=== PATIENT | female | born 1945 | race Hispanic/Latino ===

== ENCOUNTER 2024-09-06 09:25 | Inpatient (IN) | payer OTHER ==
--- OUTSIDE RECORDS SUMMARY | 2024-09-06 09:35 | XMS REPORT | Continuity of Care Document ---
Author Name Unknown Address [address] [facility] [address] [place] [address] [facility] Address [address] [facility] [place] [address] Care Team Providers Care Private Detective Name Role Phone Pcp, Pcp Primary Care Physician Unavailab Yoselin Oleary Attending Clinician Unavailable BUCK KUMAR Attending Clinician Unavailable Xiomara Sanches MD Attending Clinician [phone] XIOMARA SANCHES Attending Clinician Unavail able RENEE KEVIN Attending Clinician UnavailSalomon Dan DO Attending Clinician [phone] SALOMON RUBIO Attending Clinician Unavailab Vickie Beebe MD Attending Clinician [phone] Lindy Yang MD Attending Clinician [phone] Richie Keith MD Attending Clinician [phone] RICHIE KEITH Attending Clinician Unavailab Herrera Gardner Attending Clinician [phone] ENA DEL CID Attending Clinician UnavailHERRERA Duarte Attending Clinician Unavailable Ena Gant Attending Clinician [phone] EBENEZER HORTON Attending Clinician Unavailable Ebenezer Horton MD Attending Clinician [phone] UNRULY FERNANDO Attending Clinician Unavailable Unruly Fernando MD Attending Clinician [phone] Doctor Unassigned, [place] Attending Clinician U Omar Camacho MD Attending Clinician [phone] Lab, Ang - Db Attending Clinician Unavailable OMAR PATINO Attending Clinician Unavaila ble Nurse, Primo Whalen Attending Clinician Unavailable DENNYS ALBARADO Attending Clinician Unavailable Buck Kumar MD Attending Clinician [phone] Attending Clinician [phone] PK PETERS Attending Clinician [place] [id number], [facility] Attending Clinician Unavailable Jayson Galindo DO Attending Clinician [phone] Lab, [facility] Pob I Attending Clinician Unavailab BUCK Bejarano Admitting Clinician Unavailable Salomon Rubio DO Admitting Clinician [phone] SALOMON RUBIO Admitting Clinician Unavailab Lindy Squires MD Admitting Clinician [phone] LINDY YANG Admitting Clinician Unavailable EBENEZER HORTON Admitting Clinician Unavailable UNRULY FERNANDO Admitting Clinician Unavailable Buck Kumar MD Admitting Clinician [phone] Payers Payer Name Policy Type Policy Number Effective Date Expirati on Date Source [facility] [id number] 2019 00:00:00 [employer] MED[employer]ARE ADVANTAGE Medicare [id number] 2022 00:00:00 [employer] MEDICARE PPO [id number] 00:00:00 Problems Condition Name Condition Details Condition Category Status Onset Date Resolution Date Last Treatment Date Treating Clinician Comments Source Arthritis Arthritis Disease Active 09-02 00:00: 00 Vicky Kim Epic Cervical spondylosi s Cervical spondylosi s Disease Active 09-02 00:00: 00 Vicky Kim Epic CTS (carpal tunnel syndrome) CTS (carpal tunnel syndrome) Disease Active 09-02 00:00: 00 Vicky Kim Epic Paresthesi a of hand Paresthesi a of hand Disease Active 09-02 00:00: 00 Vicky Landaverde CVA (cerebrova scular 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 ) CVA (cerebrova scular 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 ) Disease Active 07-23 00:00: 00 Vicky Landaverde Simple obesity Simple obesity Disease Recurre nce 07-23 00:00: 00 Vicky Landaverde Hyperlipid emia Hyperlipid emia Disease Active 07-16 00:00: 00 Vicky Landaverde Dysarthria Dysarthria Disease Active 07-16 00:00: 00 Vicky Landaverde Dysphagia Dysphagia Disease Active 07-16 00:00: 00 Vicky Landaverde Hemiplegia (CMS/HCC) Hemiplegia (CMS/HCC) Disease Active 07-16 00:00: 00 Vicky Landaverde 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 Disease Active 07-15 00:00: 00 Vicky Landaverde Primary hypertensi on Primary hypertensi on Disease Active 07-15 00:00: 00 Vicky Landaverde Stroke, acute, thrombotic Stroke, acute, thrombotic Disease Active 07-15 00:00: 00 Vicky Landaverde Chronic midline low back pain without sciatica Chronic midline low back pain without sciatica Disease Active 2019-07 00:00: 00 Vicky Landaverde Diverticul osis Diverticul osis Disease Active 2019-07 00:00: 00 Vicky Landaverde Calculus of kidney Calculus of kidney Disease Active 2019-07 00:00: 00 Overview: Formattin g of this note might be different from the original. 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 Active 03-29 00:00: 00 Vicky Landaverde Obesity (BMI 30-39.9) Obesity (BMI 30-39.9) Disease Active [facility] Abnormal TSH Abnormal TSH Disease Resolve d 03-29 00:00: 00 2024-09-02 00:00:00 2024-09-02 11:49:55 Vicky Landaverde Bacterial UTI Bacterial UTI Disease Resolve d 03-29 00:00: 00 2024-09-02 00:00:00 2024-09-02 11:49:55 Vicky Landaverde Calculus of kidney Calculus of kidney Disease Resolve d 03-29 00:00: 00 2024-09-02 00:00:00 2024-09-02 11:49:55 Vicky Landaverde Allergies, Adverse Reactions, Alerts Allergy Name Allergy Type Status Severity Reaction(s) Onset Date Inactive Date Treating Clinician Comments Source PPD BLACK RUBBER MIX DRUG INGREDI Active Hives 2018-07 00:00: 00 [facility] Ppd Black Rubber Mix Propensi ty to adverse reaction s Active Hives 2018-07 00:00: 00 [facility] Social History Social Habit Start Date Stop Date Quantity Comments Source Gender identity 2024-07-17 08:57:05 Identifies as female gender (finding) Isaias Kim [facility] History SDOH Alcohol Std Drinks [facility] History SDOH Alcohol Binge [facility] History SDOH Alcohol Comment [place] [facility] ASSERTION Not Vicky Landaverde Sexual orientation [facility] Jul[facility] Tobacco use and exposure 2024-09-02 00:00:00 2024-09-02 00:00:00 Smokeless tobacco non-user Isaias Julio [facility] Alcoholic beverage intake 2024-09-02 00:00:00 2024-09-02 00:00:00 Lifetime non-drinker (finding) Isaias Kim [facility] History of Social function 2024-07-27 00:00:00 2024-07-27 00:00:00 Isaias Kim [facility] Alcohol intake 2022-05-21 00:00:00 2022-05-21 00:00:00 Lifetime non-drinker (finding) [facility] Exposure to SARS-CoV-2 (event) 2022-05-10 00:00:00 2022-05-20 10:38:00 Not sure [facility] History SDOH Alcohol Frequency 2019-06-21 00:00:00 2019-06-21 00:00:00 1 [facility] Sex Assigned At 1945 00:00:00 1945 00:00:00 [facility] Smoking Status Start Date Stop Date Source Never smoked tobacco Vicky Kim [facility] Medications Ordered Medication Name Filled Medication Name Start Date Stop Date Current Medication? Ordering Clinician Indication Dosage Frequency Signature (SIG) Comments Components Source atorvastati n (Lipitor) 80 MG tablet atorvastati n (Lipitor) 80 MG tablet 08-13 00:00: 00 11-06 23:59 :00 No 80mg Take 1 tablet by mouth at bedtime. Vicky Landaverde aspirin 81 MG chewable tablet aspirin 81 MG chewable tablet 08-13 00:00: 00 08-13 23:59 :00 No 81mg QD 1 tablet by Per G Tube route 1 time each day. Vicky Landaverde gabapentin (Neurontin) 250 MG/5ML solution gabapentin (Neurontin) 250 MG/5ML solution 08-13 00:00: 00 08-13 23:59 :00 No 300mg Q.[id number] 3D Take 6 mL by mouth in the morning and 6 mL at noon and 6 mL in the evening. Vicky Landaverde gabapentin (Neurontin) solution 300 mg gabapentin (Neurontin) solution 300 mg 08-05 15:00: 00 Yes 300mg Q.[id number] 3D 300 mg, Per G Tube, 3 times daily, First dose (after last modificati on) on Fri08/05/24 at 1500 Vicky Kim [facility] gabapentin (Neurontin) solution 300 mg gabapentin (Neurontin) solution 300 mg 08-02 17:00: 00 08-05 11:05 :56 No 300mg Q.5D 300 mg, Per G Tube, 2 times daily, First dose (after last modificati on) on Fri08/02/24 at 1700 Vicky Kim [facility] gabapentin (Neurontin) solution 300 mg gabapentin (Neurontin) solution 300 mg 07-30 21:00: 00 08-02 11:27 :33 No 300mg 300 mg, Per G Tube, Nightly, First dose on Fri07/30/24 at 2100 Vicky Kim [facility] Enteral Free water Flush 240 mL Enteral Free water Flush 240 mL 07-28 17:00: 00 Yes 240mL Q6H 240 mL, Per PEG Tube, Every 6 hours, First dose (after last modificati on) on Fri07/28/24 at 1700 [facility] aspirin chewable tablet 81 mg aspirin chewable tablet 81 mg 07-24 09:00: 00 Yes [id number] 81mg QD 81 mg, Per G Tube, Daily, First dose on Fri07/24/24 at 0900, Indication s: Carotid Atheroscle [facility]sis [facility] aspirin 81 MG chewable tablet aspirin 81 MG chewable tablet 07-24 00:00: 00 08-12 00:00 :00 No 81mg QD 1 tablet by Per G Tube route 1 time each day. Vicky Kim [facility] heparin injection 5,000 Units heparin injection 5,000 Units 07-23 22:00: 00 Yes 5000U Q8H 5,000 Units, Subcutaneo us, Every 8 hours, First dose on Fri07/23/24 at 2200 [facility] senna (Senokot) oral solution 10 mL senna (Senokot) oral solution 10 mL 07-23 21:00: 00 Yes 10mL 10 mL, Per G Tube, Nightly, First dose on Fri07/23/24 at 2100 [facility] atorvastati n (Lipitor) tablet 80 mg atorvastati n (Lipitor) tablet 80 mg 07-23 21:00: 00 Yes 80mg 80 mg, Nasogastri c, Nightly, First dose (after last modificati on) on Fri07/23/24 at 2100 Vicky Kim [facility] melatonin tablet 3 mg melatonin tablet 3 mg 07-23 20:00: 00 Yes 3mg QD 3 mg, Per G Tube, Nightly PRN, sleep, Starting on Fri07/23/24 at 2000 Vicky Landaverde Docusate Sodium oral liquid 100 mg Docusate Sodium oral liquid 100 mg 07-23 17:00: 00 Yes 100mg Q.5D 100 mg, Per G Tube, 2 times daily, First dose on Fri07/23/24 at 1700 Vicky Landaverde acetaminoph en (Tylenol) tablet 650 mg acetaminoph en (Tylenol) tablet 650 mg 07-23 13:42: 13 Yes 650mg Q4H 650 mg, Per G Tube, Every 4 hours PRN, mild pain (1-3), fever, Temp > 100.4 F, Starting on Fri07/23/24 at 1342, Do not exceed 4000 mg/day Vicky Landaverde Fibersource HN liquid 375 mL Fibersource HN liquid 375 mL 07-23 13:15: 00 08-06 19:52 :09 No 375mL Q.25D 375 mL, Per PEG Tube, 4 times daily, First dose (after last modificati on) on Fri07/23/24 at 1315, 50% rule First bolus 125 ml and advance by 125 ml until goal is reached. - Keep head of bed elevated > 30 degrees while being fed. Vicky Landaverde Enteral Free water Flush 60 mL Enteral Free water Flush 60 mL 07-23 13:15: 00 07-28 07:42 :09 No 60mL Q4H 60 mL, Per PEG Tube, Every 4 hours, First dose (after last modificati on) on Fri07/23/24 at 1315 Vicky Landaverde glucagon injection 1 mg glucagon injection 1 mg 07-23 12:53: 48 Yes 1mg Vicky Landaverde dextrose 50 % solution 12.5 g dextrose 50 % solution 12.5 g 07-23 12:53: 48 Yes 12.5g Vicky Landaverde bisacodyl (Dulcolax) suppository 10 mg bisacodyl (Dulcolax) suppository 10 mg 07-23 12:53: 48 Yes 10mg QD Vicky Landaverde sodium chloride (NS) 0.9 % flush 10 mL sodium chloride (NS) 0.9 % flush 10 mL 07-23 12:53: 48 Yes 10mL Vicky Landaverde Fibersource HN liquid 375 mL Fibersource HN liquid 375 mL 07-23 10:15: 00 Yes 375mL Q.25D 375 mL, Nasogastri c, 4 times daily, First dose on Fri07/23/24 at 1015, First bolus 125 ml and advance by 125 ml until goal is reached Vicky Landaverde Enteral Free water Flush 60 mL Enteral Free water Flush 60 mL 07-23 10:15: 00 Yes 60mL Q4H 60 mL, Nasogastri c, Every 4 hours, First dose on Fri07/23/24 at 1015, Give ? the volume of the flush before the tube feeding bolus and give ? the volume of the flush after the tube feeding bolus Vicky Landaverde atorvastati n (Lipitor) 80 MG tablet atorvastati n (Lipitor) 80 MG tablet 07-23 00:00: 00 08-13 00:00 :00 No 80mg 1 tablet by Per G Tube route at bedtime. Vicky Landaverde electrolyte solution pH 7.4 (Plasma-lyt e/Normosol/ Isolyte) infusion electrolyte solution pH 7.4 (Plasma-lyt e/Normosol/ Isolyte) infusion 07-22 17:00: 00 07-22 22:29 :17 No 125mL/h 125 mL/hr, Intravenou s, Continuous , Starting on Fri07/22/24 at 1700, Recovery (only) Vicky Landaverde hydrALAZINE injection 10 mg hydrALAZINE injection 10 mg 07-18 22:32: 43 07-19 16:22 :00 No 10mg Q6H 10 mg, Intravenou s, Every 6 hours PRN, high blood pressure, Starting on Fri07/18/24 at 2232, May give up to 2 consecutiv e doses. If goal BP is not achieved after 2 consecutiv e doses, Notify (Refer to SBP goal documented in Vital Sign/BP Parameters order). Recheck Vitals Q15 minutes x 4. Avoid use in patients with HR >110 bpm. Vicky chairez [place] Jose Roberto melatonin tablet 6 mg melatonin tablet 6 mg 07-17 21:00: 00 Yes 6mg 6 mg, Nasogastri c, Nightly, First dose on 07/17/24 at 2100 Vicky Landaverde senna (Senokot) oral solution 5 mL senna (Senokot) oral solution 5 mL 07-17 10:15: 00 Yes 5mL Q.5D 5 mL, Per G Tube, Every 12 hours scheduled, First dose on Fri07/17/24 at 1015 Vicky chairez [place] Jose Roberto aspirin chewable tablet 81 mg aspirin chewable tablet 81 mg 07-16 18:45: 00 Yes 81mg 81 mg, Oral, Once, On Fri07/16/24 at 1845, For 1 dose Vicky chairez [place] Jose Roberto Promote/Fib er liquid Promote/Fib er liquid 07-16 16:45: 00 07-23 10:11 :23 No Nasogastri c, at 70 mL/hr, Continuous , Starting on Fri07/16/24 at 1645, Administer enteral tube feeding as follows: Standard Progressio n: Initiate at 20 mL/hr and increase by 20 mL/hr evry 4 hours. Refer to the Rate field for Goal Rate Vicky chairez [place] Jose Roberto Enteral Free water Flush 30 mL Enteral Free water Flush 30 mL 07-16 16:45: 00 07-23 10:11 :23 No 30mL Q4H 30 mL, Nasogastri c, Every 4 hours, First dose on Fri07/16/24 at 1645 Vicky chairez [place] Jose Roberto sulfur hexafluorid e lipid-type A microsphere s (Lumason) 60.7-25 MG Injectable suspension 2 mL sulfur hexafluorid e lipid-type A microsphere s (Lumason) 60.7-25 MG Injectable suspension 2 mL 07-16 13:48: 48 07-16 13:18 :00 No 2mL 2 mL, Intravenou s, Once in imaging, Starting on Fri07/16/24 at 1348, For 1 dose, Reconstitu te with 5 mL of PF NS only using provided Mini-Gary ; shake vigorously for 20 sec until a homogenous white milky suspension forms. Use immediatel y. May repeat once during procedure. Vicky Landaverde aspirin chewable tablet 81 mg aspirin chewable tablet 81 mg 07-16 12:45: 00 Yes 81mg QD 81 mg, Oral, Daily, First dose on Fri07/16/24 at 1245 Vicky Landaverde electrolyte solution pH 7.4 (Plasma-lyt e/Normosol/ Isolyte) infusion electrolyte solution pH 7.4 (Plasma-lyt e/Normosol/ Isolyte) infusion 07-16 08:15: 00 07-17 10:15 :00 No 75mL/h 75 mL/hr, Intravenou s, Continuous , Starting on Fri07/16/24 at 0815, For 1 day Vicky Landaverde atorvastati n (Lipitor) tablet 80 mg atorvastati n (Lipitor) tablet 80 mg 07-15 21:00: 00 Yes 80mg 80 mg, Nasogastri c, Nightly, First dose on Fri07/15/24 at 2100 Vicky Landaverde polyethylen e glycol (PEG) 3350 (Miralax) packet 17 g polyethylen e glycol (PEG) 3350 (Miralax) packet 17 g 07-15 17:15: 00 Yes 17g Q.5D 17 g, Per G Tube, 2 times daily, First dose on Fri07/15/24 at 1715, Dissolve 17 g in 120 to 240 mL (4 to 8 ounces) of beverage. Vicky Landaverde Senna oral syrup 8.6 mg Senna oral syrup 8.6 mg 07-15 17:15: 00 07-17 09:59 :58 No 8.6mg Q.5D 8.6 mg, Per G Tube, 2 times daily, First dose (after last modificati on) on Fri07/15/24 at 1715 Vicky Landaverde niCARdipine (Cardene) 40 mg/200 mL NS (0.2 mg/mL) premix niCARdipine (Cardene) 40 mg/200 mL NS (0.2 mg/mL) premix 07-15 14:00: 00 07-16 08:08 :27 No 5mg/h 5-15 mg/hr (25-75 mL/hr), Intravenou s, Continuous , Starting on Fri07/15/24 at 1400, Phase II/On Unit, Monitor BP Q15 mins while patient receiving IV Continuous BP Management Medication s., Infusion Type: Titrate, Initial Dose (mg/hr): 5, Titrate by (mg/hr): 2.5, Every (minutes): 15, Target Blood Pressure (mmHg): SBP less than 140 mmHg, Max Dose (mg/hr): 15 Vicky Landaverde sodium chloride (NS) 0.9 % flush 10 mL sodium chloride (NS) 0.9 % flush 10 mL 07-15 14:00: 00 07-15 17:00 :52 No 10mL Q.5D 10 mL, Intravenou s, Every 12 hours scheduled, First dose on Fri07/15/24 at 1400, Phase II/On Unit, Administer at least once every 12 hours Vicky Landaverde iohexol (OMNIPaque) 300 MG/ML injection iohexol (OMNIPaque) 300 MG/ML injection 07-15 12:58: 31 07-15 13:44 :24 No As needed, Starting on Fri07/15/24 at 1258, Intraproce dure Vicky Landaverde polyethylen e glycol (PEG) 3350 (Miralax) packet 17 g polyethylen e glycol (PEG) 3350 (Miralax) packet 17 g 07-15 12:44: 18 Yes 17g Q24H 17 g, Oral, Daily PRN, constipati on, Starting on Fri07/15/24 at 1244, Dissolve 17 g in 120 to 240 mL (4 to 8 ounces) of beverage. Vicky Landaverde verapamil (Isoptin) injection verapamil (Isoptin) injection 07-15 12:39: 38 07-15 13:44 :24 No As needed, Starting on Fri07/15/24 at 1239, Intraproce dure Vicky Landaverde nitroglycer in (Tridil) 100 mcg/mL injection nitroglycer in (Tridil) 100 mcg/mL injection 07-15 12:20: 00 07-15 13:44 :24 No As needed, Starting on Fri07/15/24 at 1220, Intraproce dure Vicky Landaverde heparin injection 5,000 Units heparin injection 5,000 Units 07-15 10:45: 00 Yes 5000U Q8H 5,000 Units, Subcutaneo us, Every 8 hours, First dose on Fri07/15/24 at 1045 Vicky Kim Epic sodium chloride (NS) 0.9 % flush 10 mL sodium chloride (NS) 0.9 % flush 10 mL 07-15 10:45: 00 07-15 17:00 :52 No 10mL Q.5D 10 mL, Intravenou s, Every 12 hours scheduled, First dose on Fri07/15/24 at 1045, Administer at least once every 12 hours Vicky Landaverde acetaminoph en (Tylenol) tablet 650 mg acetaminoph en (Tylenol) tablet 650 mg 07-15 10:41: 28 Yes 650mg Q4H 650 mg, Nasogastri c, Every 4 hours PRN, mild pain (1-3), fever, Temp > 100.4 F, Starting on Fri07/15/24 at 1041, Do not exceed 4000 mg/day Vicky Kim Epic iohexol (OMNIPaque) 350 MG/ML injection 100 mL iohexol (OMNIPaque) 350 MG/ML injection 100 mL 07-15 10:05: 32 07-15 10:05 :00 No 100mL 100 mL, Intravenou s, Once in imaging, Starting on Fri07/15/24 at 1005, For 1 dose Vicky Kim Epic iohexol (OMNIPaque) 350 MG/ML injection 100 mL iohexol (OMNIPaque) 350 MG/ML injection 100 mL 07-15 09:37: 47 07-15 09:37 :00 No 100mL 100 mL, Intravenou s, Once in imaging, Starting on Fri07/15/24 at 0937, For 1 dose Vicky Landaverde sodium chloride (NS) 0.9 % flush 10 mL sodium chloride (NS) 0.9 % flush 10 mL 07-15 09:25: 37 Yes 10mL 10 mL, Intravenou s, As needed, line care, Starting on Fri07/15/24 at 0925 Vicky Landaverde sodium chloride (NS) 0.9 % flush 10 mL sodium chloride (NS) 0.9 % flush 10 mL 07-15 09:25: 37 Yes 10mL [Order 1 Start] Name: Insert peripheral IV Signed Summary: Once, On Fri07/15/24 at 0926, For 1 occurrence [Order 1 End] [Order 2 Start] Name: Saline lock IV Signed Summary: Once, On Fri07/15/24 at 09, For 1 occurrence [Order 2 End] [Order 3 Start] Name: sodium chloride (NS) 0.9 % flush 10 mL Signed Summary: 10 mL, Intravenou s, As needed, line care, Starting on Fri07/15/24 at 0925 [Order 3 End] Vicky Landaverde FLUTICASONE PROPIONATE 50 mcg/actuati on nasal spray 2022-07 0 00:00: 00 Yes [id number] Use 2 spray(s) in each nostril once daily [facility] ampicillin- sulbactam (UNASYN) 1.5 g in NaCl 0.9% (NS) 50 mL MINI-BAG 2021-07 01:00: 00 05-19 01:09 :00 No 1.5g 1.5 g, IV Piggyback, ONCE, 1 dose, On 05/18/22 at 1900, Administer over 30 Minutes, 50 mL
Reas on for Anti-Infec tive: Documented Infection< br>Documen beth Infection Site: Abdominal< br>Duratio n of Therapy: Other (see Comments) [facility] iopamidol (ISOVUE 370-500 mL) injection 71 mL 2021-07 00:45: 00 05-18 23:48 :00 No [id number] 71mL 71 mL, Intravenou s, ONCE, 1 dose, On 05/18/22 at 1845, Routine [facility] amoxicillin -clavulanat e 875-125 mg per tablet 2021-07 00:00: 00 Yes [id number] 1{tbl} Take 1 tablet by mouth every 12 (twelve) hours. [facility] traMADoL 50 mg tablet 2021-07 00:00: 00 Yes [id number] 50mg Take 1 tablet by mouth every 6 (six) hours as needed for Pain (scale 4-6). Indication s: acute pain [facility] CARVEDILOL 25 mg tablet 02-21 00:00: 00 Yes [id number] TAKE 1 TABLET BY MOUTH TWICE DAILY WITH MEALS [facility] naproxen 250 mg tablet 12-10 00:00: 00 Yes [id number] 250mg Take 1 tablet by mouth 2 (two) times daily with meals. Take sparingly due to GI side effects [facility] zinc sulfate (ZINC-220 ORAL) 11-09 11:31: 37 Yes 1{tbl} Take 1 tablet by mouth daily. [facility] ascorbic acid, vitamin C, (VITAMIN C) 500 mg tablet 11-09 11:31: 37 Yes 500mg Take 500 mg by mouth daily. [facility] telmisartan 40 mg tablet 11-09 00:00: 00 Yes [id number] 40mg Take 1 tablet by mouth 2 (two) times daily. [facility] loratadine 10 mg tablet 10-02 00:00: 00 Yes [id number] 10mg Take 1 tablet by mouth once daily as needed for Allergies. [facility] fluticasone propionate 50 mcg/actuati on nasal spray 10-02 00:00: 00 04-29 00:00 :00 No [id number] Use 2 spray(s) in each nostril once daily [facility] carvediloL 25 mg tablet 10-02 00:00: 00 02-21 00:00 :00 No [id number] 25mg Take 1 tablet by mouth 2 (two) times daily with meals. [facility] Immunizations Ordered Immunization Name Filled Immunization Name Date Status Comments Source DTAP 2021-10-15 00:00:00 Completed [facility] DTAP 2021-10-15 00:00:00 Completed [facility] DTAP 2021-10-15 00:00:00 Completed [facility] DTAP 2021-10-15 00:00:00 Completed [facility] DTAP 2021-10-15 00:00:00 Completed [facility] DTAP 2021-10-15 00:00:00 Completed [facility] DTAP 2021-10-15 00:00:00 Completed [facility] DTAP 2021-10-15 00:00:00 Completed [facility] Influenza Virus Vaccine,quad Im,preserve Free + 2021-05-04 00:00:00 Completed [facility] Influenza Virus Vaccine,quad Im,preserve Free 65+ 2021-05-04 00:00:00 Completed [facility] Influenza Virus Vaccine,quad Im,preserve Free 2021-05-04 00:00:00 Completed [facility] Influenza Virus Vaccine,quad Im,preserve Free 65+ 2021-05-04 00:00:00 Completed [facility] Influenza Virus Vaccine,quad Im,preserve Free 65+ 2021-05-04 00:00:00 Completed [facility] Influenza Virus Vaccine,quad Im,preserve Free 65+ 2021-05-04 00:00:00 Completed [facility] Influenza Virus Vaccine,quad Im,preserve Free 652021-05-04 00:00:00 Completed [facility] Influenza Virus Vaccine,quad Im,preserve Free 65+ 2021-05-04 00:00:00 Completed [facility] SARS-COV-2 COVID-19 PFIZER VACCINE 2021-04-13 00:00:00 Completed [facility] SARS-COV-2 COVID-19 PFIZER VACCINE 2021-04-13 00:00:00 Completed [facility] SARS-COV-2 COVID-19 PFIZER VACCINE 2021-04-13 00:00:00 Completed [facility] SARS-COV-2 COVID-19 PFIZER VACCINE 2021-04-13 00:00:00 Completed [facility] SARS-COV-2 COVID-19 PFIZER VACCINE 2021-04-13 00:00:00 Completed [facility] SARS-COV-2 COVID-19 PFIZER VACCINE 2021-04-13 00:00:00 Completed [facility] SARS-COV-2 COVID-19 PFIZER VACCINE 2021-04-13 00:00:00 Completed [facility] SARS-COV-2 COVID-19 PFIZER VACCINE 2021-04-13 00:00:00 Completed [facility] SARS-COV-2 COVID-19 PFIZER VACCINE 2020-10-13 00:00:00 Completed [facility] SARS-COV-2 COVID-19 PFIZER VACCINE 2020-10-13 00:00:00 Completed [facility] SARS-COV-2 COVID-19 PFIZER VACCINE 2020-10-13 00:00:00 Completed [facility] SARS-COV-2 COVID-19 PFIZER VACCINE 2020-10-13 00:00:00 Completed [facility] SARS-COV-2 COVID-19 PFIZER VACCINE 2020-10-13 00:00:00 Completed [facility] SARS-COV-2 COVID-19 PFIZER VACCINE 2020-10-13 00:00:00 Completed [facility] SARS-COV-2 COVID-19 PFIZER VACCINE 2020-10-13 00:00:00 Completed [facility] SARS-COV-2 COVID-19 PFIZER VACCINE 2020-10-13 00:00:00 Completed [facility] SARS-COV-2 COVID-19 PFIZER VACCINE 2020-09-20 00:00:00 Completed [facility] SARS-COV-2 COVID-19 PFIZER VACCINE 2020-09-20 00:00:00 Completed [facility] SARS-COV-2 COVID-19 PFIZER VACCINE 2020-09-20 00:00:00 Completed [facility] SARS-COV-2 COVID-19 PFIZER VACCINE 2020-09-20 00:00:00 Completed [facility] SARS-COV-2 COVID-19 PFIZER VACCINE 2020-09-20 00:00:00 Completed [facility] SARS-COV-2 COVID-19 PFIZER VACCINE 2020-09-20 00:00:00 Completed [facility] SARS-COV-2 COVID-19 PFIZER VACCINE 2020-09-20 00:00:00 Completed [facility] SARS-COV-2 COVID-19 PFIZER VACCINE 2020-09-20 00:00:00 Completed [facility] Influenza High Dose Quad 2020-06-13 00:00:00 Completed [facility] Influenza High Dose Quad 2020-06-13 00:00:00 Completed [facility] Influenza High Dose Quad 2020-06-13 00:00:00 Completed [facility] Influenza High Dose Quad 2020-06-13 00:00:00 Completed [facility] Influenza High Dose Quad 2020-06-13 00:00:00 Completed [facility] Influenza High Dose Quad 2020-06-13 00:00:00 Completed [facility] Influenza High Dose Quad 2020-06-13 00:00:00 Completed [facility] Influenza High Dose Quad 2020-06-13 00:00:00 Completed [facility] Zoster Vaccine Recombinant 2019-10-08 00:00:00 Completed [facility] Zoster Vaccine Recombinant 2019-10-08 00:00:00 Completed [facility] Zoster Vaccine Recombinant 2019-10-08 00:00:00 Completed [facility] Zoster Vaccine Recombinant 2019-10-08 00:00:00 Completed [facility] Zoster Vaccine Recombinant 2019-10-08 00:00:00 Completed [facility] Zoster Vaccine Recombinant 2019-10-08 00:00:00 Completed [facility] Zoster Vaccine Recombinant 2019-10-08 00:00:00 Completed [facility] Zoster Vaccine Recombinant 2019-10-08 00:00:00 Completed [facility] Zoster Vaccine Recombinant 2019-08-09 00:00:00 Completed [facility] Zoster Vaccine Recombinant 2019-08-09 00:00:00 Completed [facility] Zoster Vaccine Recombinant 2019-08-09 00:00:00 Completed [facility] Zoster Vaccine Recombinant 2019-08-09 00:00:00 Completed [facility] Zoster Vaccine Recombinant 2019-08-09 00:00:00 Completed [facility] Zoster Vaccine Recombinant 2019-08-09 00:00:00 Completed [facility] Zoster Vaccine Recombinant 2019-08-09 00:00:00 Completed [facility] Zoster Vaccine Recombinant 2019-08-09 00:00:00 Completed [facility] Pneumococcal 13 Conjugate, PCV13 (Prevnar 13) 2019-06-21 00:00:00 Completed [facility] Pneumococcal 13 Conjugate, PCV13 (Prevnar 13) 2019-06-21 00:00:00 Completed [facility] Pneumococcal 13 Conjugate, PCV13 (Prevnar 13) 2019-06-21 00:00:00 Completed [facility] Pneumococcal 13 Conjugate, PCV13 (Prevnar 13) 2019-06-21 00:00:00 Completed [facility] Pneumococcal 13 Conjugate, PCV13 (Prevnar 13) 2019-06-21 00:00:00 Completed [facility] Pneumococcal 13 Conjugate, PCV13 (Prevnar 13) 2019-06-21 00:00:00 Completed [facility] Pneumococcal 13 Conjugate, PCV13 (Prevnar 13) 2019-06-21 00:00:00 Completed [facility] Pneumococcal 13 Conjugate, PCV13 (Prevnar 13) 2019-06-21 00:00:00 Completed [facility] Influenza High Dose 2019-05-26 00:00:00 Completed [facility] Influenza High Dose 2019-05-26 00:00:00 Completed [facility] Influenza High Dose 2019-05-26 00:00:00 Completed [facility] Influenza High Dose 2019-05-26 00:00:00 Completed [facility] Influenza High Dose 2019-05-26 00:00:00 Completed [facility] Influenza High Dose 2019-05-26 00:00:00 Completed [facility] Influenza High Dose 2019-05-26 00:00:00 Completed [facility] Influenza High Dose 2019-05-26 00:00:00 Completed [facility] Pneumococcal Polysaccharide, PPSV23 (PNEUMOVAX) 2010-02-04 00:00:00 Completed [facility] TDAP 2010-02-04 00:00:00 Completed [facility] Zoster(Zostavax)(Sh ingles) 2010-02-04 00:00:00 Completed [facility] Pneumococcal Polysaccharide, PPSV23 (PNEUMOVAX) 2010-02-04 00:00:00 Completed [facility] TDAP 2010-02-04 00:00:00 Completed [facility] Zoster(Zostavax)([facility]) 2010-02-04 00:00:00 Completed [facility] Pneumococcal Polysaccharide, PPSV23 (PNEUMOVAX) 2010-02-04 00:00:00 Completed [facility] TDAP 2010-02-04 00:00:00 Completed [facility] Zoster(Zostavax)([facility]) 2010-02-04 00:00:00 Completed [facility] Pneumococcal Polysaccharide, PPSV23 (PNEUMOVAX) 2010-02-04 00:00:00 Completed [facility] TDAP 2010-02-04 00:00:00 Completed [facility] Zoster(Zostavax)([facility]) 2010-02-04 00:00:00 Completed [facility] Pneumococcal Polysaccharide, PPSV23 (PNEUMOVAX) 2010-02-04 [facility] Zoster(Zostavax)([facility]) 2010-02-04 00:00:00 Completed [facility] Pneumococcal Polysaccharide, PPSV23 (PNEUMOVAX) 2010-02-04 [facility] Zoster(Zostavax)([facility]) 2010-02-04 00:00:00 Completed [facility] Pneumococcal Polysaccharide, PPSV23 (PNEUMOVAX) 2010-02-04 00:00:00 Completed [facility] TDAP 2010-02-04 00:00:00 Completed [facility] Zoster(Zostavax)([facility]) 2010-02-04 00:00:00 Completed [facility] Pneumococcal Polysaccharide, PPSV23 (PNEUMOVAX) 2010-02-04 00:00:00 Completed [facility] TDAP 2010-02-04 00:00:00 Completed [facility] Zoster(Zostavax)([facility]) 2010-02-04 00:00:00 Completed [facility] Pneumococcal Polysaccharide, PPSV23 (PNEUMOVAX) Unknown Completed [facility] TDAP Unknown Completed [facility] Zoster(Zostavax)(Sh ingles) Unknown Completed [facility] Influenza High Dose Unknown Completed [facility] Pneumococcal 13 Conjugate, PCV13 (Prevnar 13) Unknown Completed [facility] Zoster Vaccine Recombinant Unknown Completed [facility] Influenza High Dose Quad Unknown Completed [facility] SARS-COV-2 COVID-19 PFIZER VACCINE Unknown Completed [facility] Influenza Virus Vaccine,quad Im,preserve Free 65+ (FLUAD) Unknown Completed [facility] DTAP Unknown Completed [facility] Vital Signs Vital Name Observation Time Observation Value Comments S eulogio Systolic blood pressure 2024-09-02 11:47:00 128 mm[Hg] [facility] Diastolic blood pressure 2024-09-02 11:47:00 73 mm[Hg] [facility] Heart rate 2024-09-02 11:47:00 76 /[facility] 2024-09-02 11:47:00 36.61 [facility] Respiratory rate 2024-09-02 11:47:00 16 /min [facility] Oxygen saturation in Arterial blood by Pulse oximetry 2024-09-02 11:47:00 97 /min [facility] Her [facility] Systolic blood pressure 2024-09-02 11:47:00 128 mm[Hg] [facility] Her [facility] Diastolic blood pressure 2024-09-02 11:47:00 73 mm[Hg] [facility] Heart rate 2024-09-02 11:47:00 76 /[facility] temperature 2024-09-02 11:47:00 36.61 [facility] Epic Respiratory rate 2024-09-02 11:47:00 16 /min [facility] Oxygen saturation in Arterial blood by Pulse oximetry 2024-09-02 11:47:00 97 /min [facility] Heart rate 2024-08-13 06:16:34 56 /[facility] 2024-08-13 06:16:34 18 /min [facility] Oxygen saturation in Arterial blood by Pulse oximetry 2024-08-13 06:16:34 96 /min [facility] Systolic blood pressure 2024-08-13 06:16:22 136 mm[Hg] [facility] Diastolic blood pressure 2024-08-13 06:16:22 63 mm[Hg] [facility] Body temperature 2024-08-13 06:15:39 36.83 Genevieve [facility] Body weight 2024-08-08 05:16:03 71.759 kg Myles bao [facility] BMI 2024-08-08 05:16:03 28.93 kg/m2 Myles elvisl [facility] Body height 2024-07-23 13:41:00 157.5 cm Myles rial Julio Epic Heart rate 2024-08-13 06:16:34 56 /min [facility] [place] Epic Respiratory rate 2024-08-13 06:16:34 18 /min [facility] Oxygen saturation in Arterial blood by Pulse oximetry 2024-08-13 06:16:34 96 /min [facility] Systolic blood pressure 2024-08-13 06:16:22 136 mm[Hg] [facility] Diastolic blood pressure 2024-08-13 06:16:22 63 mm[Hg] [facility] Body temperature 2024-08-13 06:15:39 36.83 Genevieve [facility] Body weight 2024-08-08 05:16:03 71.759 kg Myles elvisl [facility] BMI 2024-08-08 05:16:03 28.93 kg/m2 [facility] height 2024-07-23 13:41:00 157.5 cm Myles [facility] Epic Systolic blood pressure 2024-07-23 11:00:00 113 mm[Hg] [facility] Diastolic blood pressure 2024-07-23 11:00:00 55 mm[Hg] [facility] Heart rate 2024-07-23 11:00:00 51 [facility] Res[facility] rate 2024-07-23 11:00:00 18 /min [facility] Oxygen saturation in Arterial blood by Pulse oximetry 2024-07-23 11:00:00 96 /min [facility] Body temperature 2024-07-23 07:00:00 37 Genevieve [facility] Body height 2024-07-16 11:47:00 157.5 cm Myles rial Julio [facility] Body weight 2024-07-16 11:47:00 78.4 kg Myles Kim Epic BMI 2024-07-16 11:47:00 31.61 kg/m2 Myles Kim Epic Systolic blood pressure 2024-07-23 11:00:00 113 mm[Hg] Isaias pagan Epic Diastolic blood pressure 2024-07-23 11:00:00 55 mm[Hg] [facility] Epic Heart rate 2024-07-23 11:00:00 51 [facility] Respiratory rate 2024-07-23 11:00:00 18 /min Isaias Kim [facility] Oxygen saturation in Arterial blood by Pulse oximetry 2024-07-23 11:00:00 96 /min [facility] Body temperature 2024-07-23 07:00:00 37 Genevieve [facility] Julio [facility] Body height 2024-07-16 11:47:00 157.5 cm Myles Kim [facility] Body weight 2024-07-16 11:47:00 78.4 kg Myles Kim Epic BMI 2024-07-16 11:47:00 31.61 kg/m2 Myles Kim [facility] Systolic blood pressure 2022-05-20 16:58:00 161 mm[Hg] [facility] Diastolic blood pressure 2022-05-20 16:58:00 78 mm[Hg] [facility] Heart rate 2022-05-20 16:58:00 55 /min [facility] 2022-05-20 16:58:00 36.33 Genevieve [facility] Respiratory rate 2022-05-20 16:58:00 18 /min [facility] Body height 2022-05-20 16:58:00 157.5 cm [facility] Body weight 2022-05-20 16:58:00 78.2 kg [facility] BMI 2022-05-20 16:58:00 31.53 kg/m2 [facility] Oxygen saturation in Arterial blood by Pulse oximetry 2022-05-20 16:58:00 97 /min [facility] Systolic blood pressure 2022-05-19 01:00:00 174 mm[Hg] [facility] Diastolic blood pressure 2022-05-19 01:00:00 81 mm[Hg] [facility] Heart rate 2022-05-19 01:00:00 63 /min [facility] Respiratory rate 2022-05-19 01:00:00 23 /min [facility] Oxygen saturation in Arterial blood by Pulse oximetry 2022-05-19 01:00:00 97 /min [facility] Body temperature 2022-05-18 22:25:00 36.61 Genevieve [facility] Body height 2022-05-18 22:25:00 157.5 cm [facility] Body weight 2022-05-18 22:25:00 80.74 kg [facility] BMI 2022-05-18 22:25:00 32.56 kg/m2 [facility] Systolic blood pressure 2021-12-10 13:43:00 140 mm[Hg] [facility] Diastolic blood pressure 2021-12-10 13:43:00 80 mm[Hg] [facility] Heart rate 2021-12-10 13:17:00 57 /min [facility] Body height 2021-12-10 13:17:00 157.5 cm [facility] Body weight 2021-12-10 13:17:00 78.518 kg [facility] BMI 2021-12-10 13:17:00 31.66 kg/m2 [facility] Oxygen saturation in Arterial blood by Pulse oximetry 2021-12-10 13:17:00 98 /min [facility] Procedures Procedure Date / Time Performed Performing Clinician Source Complete Blood Count w/Diff and Platelet 2024-09-02 00:00:00 [facility] Comprehensive Metabolic Panel 2024-09-02 00:00:00 [facility] Lipid Panel w/calculated LDL 2024-09-02 00:00:00 [facility] Copper Level 2024-09-02 00:00:00 [facility] Sedimentation Rate 2024-09-02 00:00:00 Sc migueal [facility] Vitamin B1 Level 2024-09-02 00:00:00 Myles gore [facility] CT brain wo IV contrast 2024-09-02 00:00:00 [facility] COMPREHENSIVE METABOLIC PANEL 2024-08-12 05:26:00 VarSalomon serna [facility] MAGNESIUM LEVEL 2024-08-12 05:26:00 VaracaSalomon lowe [facility] PHOSPHORUS LEVEL 2024-08-12 05:26:00 Pk Rubio [facility] COMPLETE BLOOD COUNT W/DIFF AND PLATELET 2024-08-12 05:26:00 VaracaSalomon lowe [facility] COMPLETE BLOOD COUNT 2024-08-12 05:26:00 VaracaClark lowe [facility] AUTOMATED DIFFERENTIAL 2024-08-12 05:26:00 VarSalomon serna [facility] COMPREHENSIVE METABOLIC PANEL 2024-08-09 06:14:00 VarSalomon serna [facility] MAGNESIUM LEVEL 2024-08-09 06:14:00 VaracaSalomon lowe [facility] PHOSPHORUS LEVEL 2024-08-09 06:14:00 VaracaPk lowe [facility] COMPLETE BLOOD COUNT W/DIFF AND PLATELET 2024-08-09 06:14:00 VaracaSalomon lowe [facility] COMPLETE BLOOD COUNT 2024-08-09 06:14:00 VaracaClark lowe [facility] AUTOMATED DIFFERENTIAL 2024-08-09 06:14:00 VarSalomon serna [facility] COMPREHENSIVE METABOLIC PANEL 2024-08-05 05:12:00 VarSalomon serna [facility] MAGNESIUM LEVEL 2024-08-05 05:12:00 VaracallSalomon huang [facility] PHOSPHORUS LEVEL 2024-08-05 05:12:00 VaracaPk lowe [facility] COMPLETE BLOOD COUNT W/DIFF AND PLATELET 2024-08-05 05:12:00 VaracaSalomon lowe [facility] COMPLETE BLOOD COUNT 2024-08-05 05:12:00 VarClark serna [facility] AUTOMATED DIFFERENTIAL 2024-08-05 05:12:00 VarSalomon serna [facility] COMPREHENSIVE METABOLIC PANEL 2024-08-02 04:09:00 Salomon Rubio Julio Epic MAGNESIUM LEVEL 2024-08-02 04:09:00 Salomon Rubio [facility] PHOSPHORUS LEVEL 2024-08-02 04:09:00 Pk Rubio [facility] COMPLETE BLOOD COUNT W/DIFF AND PLATELET 2024-08-02 04:09:00 Salomon Rubio [facility] COMPLETE BLOOD COUNT 2024-08-02 04:09:00 Clark Rubio [facility] AUTOMATED DIFFERENTIAL 2024-08-02 04:09:00 Salomon Rubio [facility] FL ESOPHAGUS BARIUM SWALLOW WITH VIDEO AND SPEECH 2024-07-30 10:58:51 Salomon Rubio [facility] COMPREHENSIVE METABOLIC PANEL 2024-07-29 05:41:00 Salomon Rubio [facility] MAGNESIUM LEVEL 2024-07-29 05:41:00 Salomon Rubio [facility] PHOSPHORUS LEVEL 2024-07-29 05:41:00 Pk Rubio [facility] COMPLETE BLOOD COUNT W/DIFF AND PLATELET 2024-07-29 05:41:00 Salomon Rubio [facility] COMPLETE BLOOD COUNT 2024-07-29 05:41:00 Clark Rubio [facility] AUTOMATED DIFFERENTIAL 2024-07-29 05:41:00 Salomon Rubio [facility] COMPREHENSIVE METABOLIC PANEL 2024-07-26 05:59:00 Salomon Rubio [facility] MAGNESIUM LEVEL 2024-07-26 05:59:00 VarSalomon serna [facility] Epic PHOSPHORUS LEVEL 2024-07-26 05:59:00 Pk Rubio [facility] COMPLETE BLOOD COUNT W/DIFF AND PLATELET 2024-07-26 05:59:00 Salomon Rubio [facility] COMPLETE BLOOD COUNT 2024-07-26 05:59:00 Clark Rubio [facility] AUTOMATED DIFFERENTIAL 2024-07-26 05:59:00 Salomon Rubio [facility] POC GLUCOSE UNSOLICITED RESULTS 2024-07-25 08:21:00 Salomon Rubio [facility] POC GLUCOSE UNSOLICITED RESULTS 2024-07-23 06:27:00 Izeogisma Jacemarkmravelrirolan [facility] COMPLETE BLOOD COUNT 2024-07-23 04:52:00 Susi Wattersria [facility] AUTOMATED DIFFERENTIAL 2024-07-23 04:52:00 ManSusi hogue Eli Nichole [facility] BASIC METABOLIC PANEL 2024-07-23 04:52:00 Manaay RoseSusi Eli Nichole [facility] COMPLETE BLOOD COUNT W/DIFF AND PLATELET 2024-07-23 04:52:00 ManaayRoseSusi Eli Nichole [facility] POC GLUCOSE UNSOLICITED RESULTS 2024-07-22 23:33:00 Izeogu, Shirinzirim [facility] POC GLUCOSE UNSOLICITED RESULTS 2024-07-22 17:42:00 Izeogu Ianrirolan [facility] POC GLUCOSE UNSOLICITED RESULTS 2024-07-22 16:43:00 Izeogisma Shirinzirim [facility] EGD 2024-07-22 16:27:00 Loyd Lopez [facility] POC GLUCOSE UNSOLICITED RESULTS 2024-07-22 11:12:00 Quinneogu, Ianrim [facility] POC GLUCOSE UNSOLICITED RESULTS 2024-07-22 06:16:00 Quinneogisma Ianrirolan [facility] COMPLETE BLOOD COUNT 2024-07-22 00:27:00 DetRoseline evangelista [facility] AUTOMATED DIFFERENTIAL 2024-07-22 00:27:00 Detwe ilerRoseline [facility] BASIC METABOLIC PANEL 2024-07-22 00:27:00 DetRoseline whatley [facility] TYPE AND SCREEN 2024-07-22 00:27:00 Izeogu, Jacegozirim [facility] COMPLETE BLOOD COUNT W/DIFF AND PLATELET 2024-07-22 00:27:00 Roseline Caceres [facility] POC GLUCOSE UNSOLICITED RESULTS 2024-07-21 23:59:00 Richie Keith [facility] POC GLUCOSE UNSOLICITED RESULTS 2024-07-21 18:35:00 WesguillaumeJacecodyrolan [facility] POC GLUCOSE UNSOLICITED RESULTS 2024-07-21 06:01:00 SagarJacerod [facility] COMPLETE BLOOD COUNT 2024-07-21 00:39:00 Detweil erRoseline Karen [facility] AUTOMATED DIFFERENTIAL 2024-07-21 00:39:00 Detwe ilerRoseline Karen [facility] BASIC METABOLIC PANEL 2024-07-21 00:39:00 Detwei ler, Roseline Kay [facility] COMPLETE BLOOD COUNT W/DIFF AND PLATELET 2024-07-21 00:39:00 Roseline Caceres Karen [facility] POC GLUCOSE UNSOLICITED RESULTS 2024-07-20 23:52:00 Richie Keith [facility] JAVA SDET FEES PROCEDURE 2024-07-20 16:23:13 Lindy Yang [facility] UA WITH CULTURE IF INDICATED 2024-07-20 16:04:00 Roseline Caceres [facility] GRAM STAIN 2024-07-20 16:04:00 Sagar Jacerod [facility] XR CHEST 1 VIEW 2024-07-20 15:56:45 NickiDamion jensen Karen [facility] POC GLUCOSE UNSOLICITED RESULTS 2024-07-20 11:56:00 Richie Keith [facility] POC GLUCOSE UNSOLICITED RESULTS 2024-07-20 06:10:00 Lindy Yang [facility] COMPLETE BLOOD COUNT 2024-07-20 00:29:00 Bre Pruitt [facility] AUTOMATED DIFFERENTIAL 2024-07-20 00:29:00 Veto Pruitt [facility] BASIC METABOLIC PANEL 2024-07-20 00:29:00 Bre Pruitt [facility] COMPLETE BLOOD COUNT W/DIFF AND PLATELET 2024-07-20 00:29:00 Bre Pruitt [facility] CALCIUM LEVEL IONIZED WHOLE BLOOD 2024-07-20 00:29:00 [facility]UCOSE UNSOLICITED RESULTS 2024-07-20 00:04:00 [facility] P[facility] GLUCOSE UNSOLICITED RESULTS 2024-07-19 17:54:00 [facility] GLUCOSE UNSOLICITED RESULTS 2024-07-19 12:10:00 [facility] 2024-07-19 05:42:00 Bre Pruitt [facility] Epic AUTOMATED DIFFERENTIAL 2024-07-19 05:42:00 Veto Pruitt [facility] BASIC METABOLIC PANEL 2024-07-19 05:42:00 Bre Pruitt [facility] MAGNESIUM LEVEL 2024-07-19 05:42:00 [facility]OS[facility] 2024-07-19 05:42:00 [facility] W/DIFF AND PLATELET 2024-07-19 05:42:00 Bre Pruitt [facility] CALCIUM LEVEL IONIZED WHOLE BLOOD 2024-07-19 05:42:00 [facility] P[facility] GLUCOSE UNSOLICITED RESULTS 2024-07-19 05:38:00 [facility] POC GLUCOSE UNSOLICITED RESULTS 2024-07-19 00:08:00 [facility] POC GLUCOSE UNSOLICITED RESULTS 2024-07-18 17:32:00 [facility] POC GLUCOSE UNSOLICITED RESULTS 2024-07-18 12:23:00 Aroclark, [facility] COMPLETE BLOOD COUNT 2024-07-18 00:40:00 [facility] DI[facility] 2024-07-18 00:40:00 Veto Pruitt [facility] BASIC METABOLIC PANEL 2024-07-18 00:40:00 Bre Pruitt [facility] COMPLETE BLOOD COUNT W/DIFF AND PLATELET 2024-07-18 00:40:00 Bre Pruitt [facility] CALCIUM LEVEL IONIZED WHOLE BLOOD 2024-07-18 00:40:00 Bre Pruitt [facility] POC GLUCOSE UNSOLICITED RESULTS 2024-07-17 23:47:00 Aroor, [facility] POC GLUCOSE UNSOLICITED RESULTS 2024-07-17 12:02:00 Aroclark, [facility] POC GLUCOSE UNSOLICITED RESULTS 2024-07-17 06:35:00 Aroclark [facility] COMPLETE BLOOD COUNT 2024-07-17 02:35:00 Bre Pruitt [facility] AUTOMATED DIFFERENTIAL 2024-07-17 02:35:00 Veto Pruitt [facility] BASIC METABOLIC PANEL 2024-07-17 02:35:00 Bre Pruitt [facility] COMPLETE BLOOD COUNT W/DIFF AND PLATELET 2024-07-17 02:35:00 Bre Pruitt [facility] CALCIUM LEVEL IONIZED WHOLE BLOOD 2024-07-17 02:35:00 Bre Pruitt [facility] POC GLUCOSE UNSOLICITED RESULTS 2024-07-16 23:42:00 Aroclark, [facility] POC GLUCOSE UNSOLICITED RESULTS 2024-07-16 16:35:00 Aroclark [facility] XR ABDOMEN 1 VIEW 2024-07-16 15:47:14 Tray Santos [facility] POC GLUCOSE UNSOLICITED RESULTS 2024-07-16 13:45:00 Aroclark [facility] TRANSTHORACIC ECHO (TTE) COMPLETE W/ CONTRAST 2024-07-16 13:15:00 Susannah Magallanes [facility] MRI BRAIN WO IV CONTRAST 2024-07-16 09:37:00 Marce Magallanes [facility] POC GLUCOSE UNSOLICITED RESULTS 2024-07-16 07:37:00 Aroclark, [facility] POC GLUCOSE UNSOLICITED RESULTS 2024-07-16 06:49:00 [place], [facility] POC GLUCOSE UNSOLICITED RESULTS 2024-07-16 00:25:00 [place] [facility] CALCIUM LEVEL IONIZED WHOLE BLOOD 2024-07-16 00:24:00 Bre Pruitt [facility] COMPLETE BLOOD COUNT 2024-07-16 00:23:00 Bre Pruitt [facility] AUTOMATED DIFFERENTIAL 2024-07-16 00:23:00 Veto Pruitt [facility] BASIC METABOLIC PANEL 2024-07-16 00:23:00 Bre Pruitt [facility] HEPATIC FUNCTION PANEL 2024-07-16 00:23:00 Veto Pruitt [facility] MAGNESIUM LEVEL 2024-07-16 00:23:00 Bre Pruitt [facility] PHOSPHORUS LEVEL 2024-07-16 00:23:00 Bre Pruitt [facility] COMPLETE BLOOD COUNT W/DIFF AND PLATELET 2024-07-16 00:23:00 Bre Pruitt [facility] POC GLUCOSE UNSOLICITED RESULTS 2024-07-15 19:43:00 [place] [facility] POC GLUCOSE UNSOLICITED RESULTS 2024-07-15 14:50:00 [place] [facility] XR CHEST 1 VIEW 2024-07-15 11:11:43 Rosanna Albrecht [facility] LIPID PANEL W/CALCULATED LDL 2024-07-15 10:58:00 Susannah Magallanes [facility] HEMOGLOBIN A1C 2024-07-15 10:58:00 Susannah Magallanes [facility] POTASSIUM LEVEL 2024-07-15 10:58:00 Rosanna Albrecht [facility] ECG 12-LEAD 2024-07-15 10:41:33 Rosanna Albrecht [facility] TYPE AND SCREEN 2024-07-15 10:21:00 Rosanna Albrecht [facility] CT ANGIOGRAM CHEST ABDOMEN PELVIS 2024-07-15 10:05:00 Vickie Becerra [facility] CT ANGIOGRAM BRAIN NECK STROKE PERFUSION 2024-07-15 09:37:00 Susannah Magallanes [facility] CT BRAIN STROKE WO IV CONTRAST 2024-07-15 09:33:00 Susannah Magallanes [facility] COMPLETE BLOOD COUNT 2024-07-15 09:27:00 Rosanna Albrecht [facility] AUTOMATED DIFFERENTIAL 2024-07-15 09:27:00 Fernie Albrecht [facility] BASIC METABOLIC PANEL 2024-07-15 09:27:00 Rosanna Albrecht Juan M [facility] CREATINE KINASE (CK TOTAL) 2024-07-15 09:27:00 Rosanna Albrecht Juan M [facility] HCG TOTAL (QUANTITATIVE) 2024-07-15 09:27:00 [facility] COMPLETE [facility]LOOD COUNT W/DIFF AND PLATELET 2024-07-15 09:27:00 Rosanna Albrecht Juan M [facility] PROTIME-INR 2024-07-15 09:27:00 [facility] 2024-07-15 09:27:00 Rosanna Albrecht [facility] Check puncture site(s) for bleeding or hematoma on arrival and with vital signs. Notify radiologist if bleeding or hematoma occurs, apply manual pressure immediately. 2024-07-15 00:00:00 [facility] POCT URINALYSIS AUTO 2022-05-20 16:59:00 Julio Del Cid [facility] CT ABDOMEN PELVIS W CONTRAST 2022-05-18 23:54:26 Ebenezer Horton [facility] URINALYSIS 2022-05-18 22:44:00 [facility] LIPASE 2022-05-18 22:38:00 Ebenezer Horton [facility] COMP. METABOLIC PANEL (79571) 2022-05-18 22:38:00 Ebenezer Horton [facility] CBC WITH DIFF 2022-05-18 22:38:00 Ebenezer Horton [facility] NOTICE OF PRIVACY PRACTICES 2022-05-18 22:24:16 Doctor Unassigned, [place] [facility] CONSENT/REFUSAL FOR DIAGNOSIS AND TREATMENT 2022-05-18 22:16:51 Doctor Unassigned, [place] [facility] US RETROPERITONEAL COMPLETE 2022-05-01 14:32:45 Unruly Fernando [facility] ASSIGNMENT OF BENEFITS 2022-05-01 13:49:18 Docto r Unassigned, [place] [facility] REFERRAL- REQUEST/RESPONSE 2022-02-04 05:01:00 D holly Unassigned, [place] [facility] CBC WITH DIFF 2021-12-10 14:11:00 Herrera Ortiz [facility] IR angiogram cerebral bilateral [facility] Plan of Care Planned Activity Planned Date Details Comments Source Procedure 2024-11-04 00:00:00 Complete Blood Count w/Diff and Platelet [facility] Procedure 2024-11-04 00:00:00 Comprehensive Metabolic Panel [facility] Procedure 2024-11-04 00:00:00 [facility] Procedure 2024-11-04 00:00:00 Magnesium Level [facility] Encounters Start Date/Time End Date/Time Encounter Type Admission Type Attending Clinicians Care Facility Care Department Encounter ID Source 2021-08-01 11:16:19 Outpatient Yoselin Franco [facility] [id number] [facility] 2021-05-05 12:02:44 Outpatient BUCK KUMAR [facility] [id number] [facility] 2024-09-02 11:45:00 2024-09-02 12:21:15 Office Visit Xiomara Sanches [facility] 1.840.114 350.1.13.70 8.2.7.2.686 [id number] Senoria l [facility] 2024-09-02 11:33:48 2024-09-02 12:21:15 Outpatient XIOMARA SANCHES EOUT EOUT [id number] [facility] 2024-08-25 14:00:00 2024-08-25 14:00:00 Outpatient RENEE KEVIN [facility] [id number] [facility] 2024-07-23 12:39:00 2024-08-13 14:35:00 Hospital Encounter Salomon Rubio [facility] 1..840.114 350.1.13.70 8.2.7.2.686 [id number] Memoria l Julio [facility] 2024-07-23 12:39:00 2024-08-13 14:35:00 Outpatient Elective SALOMON RUBIO [facility] Physical Medicine and Rehabilitat ion [id number] [facility] 2024-07-15 09:17:00 2024-07-23 12:15:00 Hospital Encounter MariamVickie, Lindy Quinngrantguillaume, Ianandresrolan [facility] 1.2.840.114 350.1.13.70 8.2.7.2.686 [id number] 2024-07-15 09:17:00 2024-07-23 12:15:00 Inpatient Emergency SAGAR RICHIE [facility] General Medicine [id number] [facility] 2023-04-26 00:00:00 2023-04-26 00:00:00 Herrera Coe [facility] 1.2.840.114 350.1.13.10 4.2.7.2.686 [id number] [facility] 2022-11-18 10:30:00 2022-11-18 10:30:00 Outpatient R ENA DEL CID [facility] [id number] [facility] 2022-06-11 08:30:00 2022-06-11 08:30:00 Outpatient HERRERA WHELAN [facility] [id number] [facility] 2022-05-20 11:00:00 2022-05-20 11:43:43 Outpatient R ENA DEL CID [facility] [id number] [facility] 2022-05-20 11:00:00 2022-05-20 11:43:43 Office Visit [facility] 1.2.840.114 350.1.13.10 4.2.7.2.686 [id number] [facility] 2022-05-18 16:18:00 2022-05-18 19:09:00 Emergency X EBENEZER HORTON [facility] ERT [id number] [facility] 2022-05-18 16:18:00 2022-05-18 19:09:00 Emergency Ebenezer Horton [facility] 1.840.114 350.1.13.10 4.2.7.2.686 [id number] [facility] 2022-05-01 08:51:34 2022-05-01 23:59:00 Outpatient R OLINDA [facility] [id number] [facility] 2022-05-01 08:51:34 2022-05-01 23:59:00 Hospital Encounter Kass[facility] 1.840.114 350.1.13.10 4.2.7.2.686 [id number] [facility] 2022-05-01 00:00:00 2022-05-01 00:00:00 Orders Only Doctor Unassigned, [place] [facility] 1.0.114 350.1.13.10 4.2.7.2.686 [id number] [facility] 2022-04-30 08:40:00 2022-04-30 08:40:00 Outpatient R HERRERA ORTIZ [facility] [id number] [facility] 2022-02-20 00:00:00 2022-02-20 00:00:00 Omar Summers [facility] 1.0.114 350.1.13.10 4.2.7.2.686 [id number] [facility] 2022-02-04 00:00:00 2022-02-04 00:00:00 Orders Only Doctor Unassigned, [place] [facility] 1.840.114 350.1.13.10 4.2.7.2.686 [id number] [facility] 2021-12-12 00:00:00 2021-12-12 00:00:00 [facility] [place] 1.2.840.114 350.1.13.10 4.2.7.2.686 [id number] [facility] 2021-12-10 09:00:00 2021-12-10 09:15:00 Care Management Specialist Visit Lab, Primo - Koby Diana [facility] [place]?[facility] 1.2.840.114 350.1.13.10 4.2.7.2.686 [id number] [facility] 2021-12-10 09:00:00 2021-12-10 09:00:00 Outpatient R HERRERA ORTIZ [facility] [id number] [facility] 2021-12-10 09:00:00 2021-12-10 09:00:00 Outpatient R HERRERA ORTIZ [facility] [id number] [facility] 2021-12-10 08:30:00 2021-12-10 08:56:08 [facility] [place] 1.2.840.114 350.1.13.10 4.2.7.2.686 [id number] [facility] 2021-12-10 08:30:00 2021-12-10 08:56:08 Outpatient R HERRERA ORTIZ [facility] [id number] [facility] 2021-11-09 11:30:00 2021-11-09 11:59:39 Outpatient R HERRERA ORTIZ [facility] [id number] [facility] 2021-11-09 11:30:00 2021-11-09 11:59:39 [facility] [place] 1.2.840.114 350.1.13.10 4.2.7.2.686 [id number] [facility] 2021-11-09 00:00:00 2021-11-09 00:00:00 Telephone [facility] [place] MED[facility] OFFICE BUILD[facility] 1.2.840.114 350.1.13.10 4.2.7.2.686 [id number] [facility] 2021-11-09 00:00:00 2021-11-09 00:00:00 Telephone [facility] [place] OFF[facility] BU[facility] 1.2.840.114 350.1.13.10 4.2.7.2.686 [id number] [facility] 2021-11-09 00:00:00 2021-11-09 00:00:00 Telephone [facility] MED[facility] OFF[facility] BU[facility] 1.2.840.114 350.1.13.10 4.2.7.2.686 [id number] [facility] 2021-11-09 00:00:00 2021-11-09 00:00:00 Orders Only Doctor Unassigned, [place] [facility] 1.2840.114 350.1.13.10 4.2.7.2.686 [id number] [facility] 2021-11-07 00:00:00 2021-11-07 00:00:00 Telephone Unruly Fernando [facility] 1.2.840.114 350.1.13.10 4.2.7.2.686 [id number] [facility] 2021-11-05 10:00:00 2021-11-05 10:00:00 Outpatient R HERRERA ORTIZ [facility] [id number] [facility] 2021-11-05 08:30:00 2021-11-05 08:30:00 Outpatient R HERRERA ORTIZ [facility] [id number] [facility] 2021-11-01 10:00:00 2021-11-01 10:00:00 Outpatient R KASSIE [facility] [id number] [facility] 2021-10-31 12:55:53 2021-10-31 23:59:00 Outpatient R KASSIE [facility] [id number] [facility] 2021-10-31 12:55:53 2021-10-31 23:59:00 Hospital Encounter Kassie [facility] 1.2.840.114 350.1.13.10 4.2.7.2.686 [id number] [facility] 2021-10-31 12:28:40 2021-10-31 12:54:00 Hospital Encounter Kassie [facility] 1.2840.114 350.1.13.10 4.2.7.2.686 [id number] [facility] 2021-10-15 11:15:00 2021-10-15 11:51:12 Outpatient R KASSIE [facility] [id number] [facility] 2021-10-15 11:15:00 2021-10-15 11:51:12 Office Visit Kassie [facility] PROFESSIO NAL BUILDING 1.2840.114 350.1.13.10 4.2.7.2.686 [id number] [facility] 2021-10-03 00:00:00 2021-10-03 00:00:00 Telephone Omar Patino [facility] 1.2840.114 350.1.13.10 4.2.7.2.686 [id number] [facility] 2021-10-02 10:15:00 2021-10-02 10:30:00 Care Management Specialist Visit Lab, Ang - Db Omar Pat[facility] MED[facility] OFFICE BU[facility] 1.2.840.114 350.1.13.10 4.2.7.2.686 [id number] [facility] 2021-10-02 10:15:00 2021-10-02 10:15:00 Outpatient R OMAR PATINO [facility] [id number] [facility] 2021-10-02 09:30:00 2021-10-02 10:13:33 Office Visit Omar Pat[facility] 1..840.114 350.1.13.10 4.2.7.2.686 [id number] [facility] 2021-10-02 09:30:00 2021-10-02 10:13:33 Outpatient R OMAR PATINO [facility] [id number] [facility] 2021-10-02 00:00:00 2021-10-02 00:00:00 Orders Only Doctor Unassigned, [place] [facility] 1..840.114 350.1.13.10 4.2.7.2.686 [id number] [facility] 2021-09-20 00:00:00 2021-09-20 00:00:00 Telephone Omar Pat[facility] 1..840.114 350.1.13.10 4.2.7.2.686 [id number] [facility] 2021-09-17 09:15:00 2021-09-17 09:15:00 Outpatient R UNRULY FERNANDO [facility] [id number] [facility] 2021-09-13 09:00:00 2021-09-13 09:00:00 Outpatient R UNRULY FERNANDO [facility] [id number] [facility] 2021-08-16 00:00:00 2021-08-16 00:00:00 Refill Omar Patino [facility] OFFICE BUILDING ONE 1..840.114 350.1.13.10 4.2.7.2.686 [id number] [facility] 2021-06-14 00:00:00 2021-06-14 00:00:00 Refill Omar Patino [facility] [place] OFFICE BUILDING 1..840.114 350.1.13.10 4.2.7.2.686 [id number] [facility] 2021-05-04 12:47:26 2021-05-04 13:07:26 Nurse Visit NursePrimo Omar Patino [facility] [place] OFFICE BUILDING 1..840.114 350.1.13.10 4.2.7.2.686 [id number] [facility] 2021-05-04 13:00:00 2021-05-04 13:00:00 Outpatient R OMAR PATINO [facility] [id number] [facility] 2021-04-13 13:00:00 2021-04-13 13:00:00 Outpatient R OMAR PATINO [facility] [id number] [facility] 2021-04-13 12:26:42 2021-04-13 12:46:42 Nurse Visit NursePrimo Omar Patino [facility] [place]?[facility] Office Building 1..840.114 350.1.13.10 4.2.7.2.686 [id number] [facility] 2021-04-02 11:27:36 2021-04-02 12:47:26 Office Visit [facility] Medical Office Building 1.2.840.114 350.1.13.10 4.2.7.2.686 [id number] [facility] 2021-04-02 11:45:00 2021-04-02 11:45:00 Outpatient R OMAR PATINO [facility] [id number] [facility] 2021-03-22 08:46:17 2021-03-22 09:01:17 Care Management Specialist Visit Lab, Ang - Db Wicho Patinopia [facility] [place]?[facility] Medical Office Building 1..840.114 350.1.13.10 4.2.7.2.686 [id number] [facility] 2021-03-22 08:30:00 2021-03-22 09:00:00 Office [facility] Medical Office Building 1..840.114 350.1.13.10 4.2.7.2.686 [id number] [facility] 2021-03-22 08:45:00 2021-03-22 08:45:00 Outpatient R [facility] [id number] [facility] 2021-03-22 08:30:00 2021-03-22 08:30:00 Outpatient R OMAR PATINO [facility] [id number] [facility] 2020-10-13 09:30:00 2020-10-13 09:30:00 Outpatient R DENNYS ALBARADO [facility] [id number] [facility] 2020-10-10 00:00:00 2020-10-10 00:00:00 Telephone Buck Kumar [facility] 1.2.840.114 350.1.13.10 4.2.7.2.686 [id number] [facility] 2020-10-09 00:00:00 2020-10-09 00:00:00 Telephone Unruly Fernando [facility] Building 1.2.840.114 350.1.13.10 4.2.7.2.686 [id number] [facility] 2020-09-26 00:00:00 2020-09-26 00:00:00 Telephone Omar Patino [facility] Office Building One 1.2.840.114 350.1.13.10 4.2.7.2.686 [id number] [facility] 2020-09-25 08:53:20 2020-09-25 23:59:00 Hospital Encounter LorrainePk [facility] 1.2.840.114 350.1.13.10 4.2.7.2.686 [id number] [facility] 2020-09-25 00:00:00 2020-09-25 00:00:00 Outpatient PK DAVIS [facility] [id number] [facility] 2020-09-25 00:00:00 2020-09-25 00:00:00 Orders Only Doctor Unassigned, [place] [facility] 1.840.114 350.1.13.10 4.2.7.2.686 [id number] [facility] 2020-09-22 00:00:00 2020-09-22 00:00:00 Orders Only Doctor Unassigned, [place] [facility] 1.840.114 350.1.13.10 4.2.7.2.686 [id number] [facility] 2020-09-20 11:20:00 2020-09-20 11:20:00 Outpatient DENNYS ROMAN [facility] [id number] [facility] 2020-09-20 00:00:00 2020-09-20 00:00:00 Outpatient R LORRAINECLARKPK [facility] [id number] [facility] 2020-09-18 10:15:32 2020-09-18 11:16:43 Office Visit Essex Wichofantapia [facility] Office Building One 1..840.114 350.1.13.10 4.2.7.2.686 [id number] [facility] 2020-09-18 10:30:00 2020-09-18 10:30:00 Outpatient R OMAR PATINO [facility] [id number] [facility] 2020-09-12 10:25:09 2020-09-12 11:51:14 [facility] 1..840.114 350.1.13.10 4.2.7.2.686 [id number] [facility] 2020-09-12 11:15:00 2020-09-12 11:15:00 Outpatient R PK PETERS [facility] [id number] [facility] 2020-09-03 15:05:00 2020-09-03 15:05:00 Outpatient DENNYS ROMAN [facility] [id number] [facility] 2020-08-16 08:45:04 2020-08-16 23:59:00 Hospital Encounter Omar Patino [facility] 1..840.114 350.1.13.10 4.2.7.2.686 [id number] [facility] 2020-08-16 00:00:00 2020-08-16 00:00:00 Outpatient OMAR CONDE [facility] [id number] [facility] 2020-08-01 10:19:21 2020-08-01 11:53:48 Office Visit José, [facility] 1.2.840.114 350.1.13.10 4.2.7.2.686 [id number] [facility] 2020-08-01 11:15:00 2020-08-01 11:15:00 Outpatient R JOSÉ [facility] [id number] [facility] 2020-08-01 00:00:00 2020-08-01 00:00:00 Telephone José [facility] 1.2.840.114 350.1.13.10 4.2.7.2.686 [id number] [facility] 2020-08-01 00:00:00 2020-08-01 00:00:00 Orders Only Doctor Unassigned, [place] [facility] 1.2.840.114 350.1.13.10 4.2.7.2.686 [id number] [facility] 2020-07-17 06:37:00 2020-07-18 13:30:00 Hospital Encounter [facility] 1.2.840.114 350.1.13.10 4.2.7.2.686 [id number] [facility] 2020-07-12 08:16:39 2020-07-12 08:31:39 Care Management Specialist Visit 2, Adc Lab Omar Patino [facility] 1.2.840.114 350.1.13.10 4.2.7.2.686 [id number] [facility] 2020-07-12 08:00:00 2020-07-12 08:00:00 Outpatient OMAR CONDE [facility] [id number] [facility] 2020-06-20 00:00:00 2020-06-20 00:00:00 Letter (Out) Jayson Galindo [facility] 1.2.840.114 350.1.13.10 4.2.7.2.686 [id number] [facility] 2020-06-13 10:43:20 2020-06-13 11:50:59 Office Visit Omar Patino [facility] Office Building One 1.114 350.1.13.10 4.2.7.2.686 [id number] [facility] 2020-06-13 11:00:00 2020-06-13 11:00:00 Outpatient R OMAR PATINO [facility] [id number] [facility] 2020-05-30 08:32:39 2020-05-30 08:47:39 [facility] 1.114 350.1.13.10 4.2.7.2.686 [id number] [facility] 2020-05-30 08:45:00 2020-05-30 08:45:00 Outpatient R JOSÉ [facility] [id number] [facility] 2020-05-22 10:41:09 2020-05-22 11:28:32 Office Visit Kassie [facility] Building 1.84.114 350.1.13.10 4.2.7.2.686 [id number] [facility] 2020-05-22 10:45:00 2020-05-22 10:45:00 Outpatient R KASSIE [facility] [id number] [facility] 2020-05-04 00:00:00 2020-05-04 00:00:00 [facility] 1..114 350.1.13.10 4.2.7.2.686 [id number] [facility] 2020-05-03 08:49:25 2020-05-03 23:59:00 [facility] 1.840.114 350.1.13.10 4.2.7.2.686 [id number] [facility] 2020-05-03 08:40:00 2020-05-03 09:00:00 Care Management Specialist Visit Lab, Adc Fam Pob I LeWichofantapia Torres [facility] Office Building One 1.840.114 350.1.13.10 4.2.7.2.686 [id number] [facility] 2020-05-03 00:00:00 2020-05-03 00:00:00 Outpatient R [facility] [id number] [facility] 2020-05-03 00:00:00 2020-05-03 00:00:00 Orders Only Doctor Unassigned, [place] [facility] 1.840.114 350.1.13.10 4.2.7.2.686 [id number] [facility] 2020-05-03 00:00:00 2020-05-03 00:00:00 Case Management EssexWicho rodriguezfantapia Torres [facility] Office [facility] 1.0.114 350.1.13.10 4.2.7.2.686 [id number] [facility] 2020-05-01 00:00:00 2020-05-01 00:00:00 Telephone Martínezsari [facility] 1.0.114 350.1.13.10 4.2.7.2.686 [id number] [facility] 2020-04-27 10:20:28 2020-04-27 10:32:52 Care Management Specialist Visit 2, Adc Lab Kassie [facility] Building 1.0.114 350.1.13.10 4.2.7.2.686 [id number] [facility] 2020-04-27 09:22:14 2020-04-27 10:16:38 Office Visit Unruly Fernando [facility] Building 1.2840.114 350.1.13.10 4.2.7.2.686 [id number] [facility] 2020-04-27 09:30:00 2020-04-27 09:30:00 Outpatient R UNRULY FERNANDO [facility] [id number] [facility] 2020-04-19 00:00:00 2020-04-19 00:00:00 Orders Only Doctor Unassigned, [place] [facility] 1.2840.114 350.1.13.10 4.2.7.2.686 [id number] [facility] 2020-04-10 00:00:00 2020-04-10 00:00:00 Telephone Omar Patino [facility] Office Building One 1.0.114 350.1.13.10 4.2.7.2.686 [id number] [facility] 2020-04-03 00:00:00 2020-04-03 00:00:00 Telephone Omar Patino [facility] Office Building One 1.20.114 350.1.13.10 4.2.7.2.686 [id number] [facility] 2020-03-29 00:00:00 2020-03-29 00:00:00 Case Management LeWichoserenity Brian [facility] Building 1.2840.114 350.1.13.10 4.2.7.2.686 [id number] [facility] 2020-03-27 10:12:17 2020-03-27 23:59:00 Hospital Encounter Le Omar Torres [facility] 1.2.840.114 350.1.13.10 4.2.7.2.686 [id number] [facility] 2020-03-27 00:00:00 2020-03-27 00:00:00 Outpatient R OMAR PATINO [facility] [id number] [facility] 2020-03-22 08:37:04 2020-03-22 23:59:00 Hospital Encounter Omar Patino [facility] 1.2.840.114 350.1.13.10 4.2.7.2.686 [id number] [facility] 2020-03-22 08:00:00 2020-03-22 08:00:00 Outpatient R OMAR PATINO [facility] [id number] [facility] 2020-03-22 07:39:55 2020-03-22 07:49:55 Care Management Specialist Visit Lab, Adc Fam Pob I Omar Patino [facility] Office Building One 1.2840.114 350.1.13.10 4.2.7.2.686 [id number] [facility] 2020-03-22 00:00:00 2020-03-22 00:00:00 Telephone Omar Patino [facility] Office Building One 1.2840.114 350.1.13.10 4.2.7.2.686 [id number] [facility] 2020-03-21 10:57:16 2020-03-21 12:16:48 Office Visit Omar Patino [facility] Office Building One 1.2840.114 350.1.13.10 4.2.7.2.686 [id number] [facility] 2020-03-21 11:15:00 2020-03-21 11:15:00 Outpatient R OMAR PATINO [facility] [id number] [facility] 2019-10-11 10:00:00 2019-10-11 10:00:00 Outpatient R OMAR PATINO [facility] [id number] [facility] 2019-10-11 07:32:14 2019-10-11 07:47:14 Telemedici ne Visit Omar Patino [facility] 1.2.840.114 350.1.13.10 4.2.7.2.686 [id number] [facility] Results Test Description Test Time Test Comments Results Result Co mments Source [facility] Czptbht2659-56-27 06:29:44* Test Item Value Reference Range Interpretation Comme nts POC Glu (test code = 7514105759) 137 mg/dL 70-99 H POC Glu Comment 1 (test code = 2502175989) Notified RN/MD POC Performing Location (shruthi t code = 0584684394) J4E STROKE Lab Interpretation (test cod e = 72024-5) Abnormal [facility] Piofieq9427-66-04 23:56:07* Test Item Value Reference Range Interpretation Comme nts POC Glu (test code = 3306706838) 107 mg/dL 70-99 H POC Glu Comment 1 (test code = 4601148860) Notified RN/MD POC Performing Location (shruthi t code = 7919424033) J9W Stroke Lab Interpretation (test cod e = 24789-9) Abnormal [facility] Bcuyrbb8312-32-90 17:45:11* Test Item Value Reference Range Interpretation Comme nts POC Glu (test code = 2773337076) 90 mg/dL 70-99 POC Glu Comment 1 (test code = 6200211277) Notified RN/MD POC Performing Location (shruthi t code = 3346307928) J9W Stroke [facility] Iqkxdfg5162-45-27 16:45:44* Test Item Value Reference Range Interpretation Comme nts POC Glu (test code = 9451821699) 94 mg/dL 70-99 POC Performing Location (shruthi t code = 1661995361) J2 RAD [facility] Qwkavob9158-06-10 11:59:44* Test Item Value Reference Range Interpretation Comme nts POC Glu (test code = 1762639236) 97 mg/dL 70-99 POC Glu Comment 1 (test code = 7818404763) Notified RN/MD POC Performing Location (shruthi t code = 2587354073) [facility] Stroke [facility] Ckvvqio8025-40-29 06:24:40* Test Item Value Reference Range Interpretation Comme nts POC Glu (test code = 8847142688) 115 mg/dL 70-99 H POC Glu Comment 1 (test code = 6883474038) Notified RN/MD POC Performing Location (shruthi t code = 6919051982) [facility] Stroke Lab Interpretation (test cod e = 73458-5) Abnormal [facility] Yksahcc1559-90-68 00:13:27* Test Item Value Reference Range Interpretation Comme nts POC Glu (test code = 6934353227) 118 mg/dL 70-99 H POC Glu Comment 1 (test code = 5937215701) Notified RN/MD POC Performing Location (shruthi t code = 1012125956) [facility] Stroke Lab Interpretation (test cod e = 87671-0) Abnormal [facility] Eekuwwz9019-98-38 18:38:30* Test Item Value Reference Range Interpretation Comme nts POC Glu (test code = 7088139429) 137 mg/dL 70-99 H POC Glu Comment 1 (test code = 7793787802) Notified RN/MD POC Performing Location (shruthi t code = 9676618366) [facility] Stroke Lab Interpretation (test cod e = 25921-0) Abnormal [facility] Zpvchpv0806-63-40 06:03:28* Test Item Value Reference Range Interpretation Comme nts POC Glu (test code = 8905099445) 117 mg/dL 70-99 H POC Glu Comment 1 (test code = 9665131517) Notified RN/MD POC Performing Location (shruthi t code = 1494963350) [facility] Stroke Lab Interpretation (test cod e = 90171-4) Abnormal [facility] Mlrcxhd8125-70-49 00:02:54* Test Item Value Reference Range Interpretation Comme nts POC Glu (test code = 4016252700) 126 mg/dL 70-99 H POC Glu Comment 1 (test code = 4477284792) Notified RN/MD POC Performing Location (shruthi t code = 8358833179) [facility] Stroke Lab Interpretation (test cod e = 20363-5) Abnormal [facility] Yqqypum4306-76-10 12:01:37* Test Item Value Reference Range Interpretation Comme nts POC Glu (test code = 4659798565) 117 mg/dL 70-99 H POC Glu Comment 1 (test code = 8254662174) Notified RN/MD POC Performing Location (shruthi t code = 5780392136) [facility] STROKE Lab Interpretation (test cod e = 33542-6) Abnormal [facility] Criiwnr4209-83-94 06:18:03* Test Item Value Reference Range Interpretation Comme nts POC Glu (test code = 5119247509) 141 mg/dL 70-99 H POC Glu Comment 1 (test code = 4419979009) Notified RN/MD POC Performing Location (shruthi t code = 2375704753) [facility] Stroke Lab Interpretation (test cod e = 08691-1) Abnormal [facility] Bocbvnj8511-90-58 00:07:10* Test Item Value Reference Range Interpretation Comme nts POC Glu (test code = 2626656819) 142 mg/dL 70-99 H POC Glu Comment 1 (test code = 5705738044) Notified RN/MD POC Performing Location (shruthi t code = 1239580640) [facility] STROKE Lab Interpretation (test cod e = 13529-0) Abnormal [facility] Ahtxrxq6398-47-27 18:08:04* Test Item Value Reference Range Interpretation Comme nts POC Glu (test code = 4423584270) 152 mg/dL 70-99 H POC Glu Comment 1 (test code = 7517435785) Notified RN/MD POC Performing Location (shruthi t code = 3440604650) [facility] Stroke Lab Interpretation (test cod e = 39212-1) Abnormal [facility] Lfbmxcc2567-66-55 12:15:30* Test Item Value Reference Range Interpretation Comme nts POC Glu (test code = 8591790792) 126 mg/dL 70-99 H POC Glu Comment 1 (test code = 0249630443) Notified RN/MD POC Performing Location (shruthi t code = 6859849260) [facility] STROKE Lab Interpretation (test cod e = 62228-7) Abnormal [facility] Uwzgdig6248-81-54 05:48:31* Test Item Value Reference Range Interpretation Comme nts POC Glu (test code = 3738942896) 143 mg/dL 70-99 H POC Performing Location (shruthi t code = 0943163113) [facility] Stroke Lab Interpretation (test cod e = 75462-3) Abnormal [facility] Juwiqnm4602-19-11 00:20:20* Test Item Value Reference Range Interpretation Comme nts POC Glu (test code = 0219266196) 129 mg/dL 70-99 H POC Glu Comment 1 (test code = 3887474382) Notified RN/MD POC Performing Location (shruthi t code = 7026254786) [facility] Stroke Lab Interpretation (test cod e = 44810-7) Abnormal [facility] Vapyxqg4488-71-91 17:55:42* Test Item Value Reference Range Interpretation Comme nts POC Glu (test code = 4506536256) 121 mg/dL 70-99 H POC Glu Comment 1 (test code = 6516833061) Notified RN/MD POC Glu Comment 2 (test code = 0104664711) Sent to lab POC Performing Location (shruthi t code = 5918466538) [facility] Stroke Lab Interpretation (test cod e = 03606-3) Abnormal [facility] Jovsfhq4298-14-92 14:04:13* Test Item Value Reference Range Interpretation Comme nts POC Glu (test code = 0365234187) 93 mg/dL 70-99 POC Glu Comment 1 (test code = 4593276535) Notified RN/MD POC Glu Comment 2 (test code = 6742299407) Sent to lab POC Performing Location (shruthi t code = 2624293835) [facility] Stroke [facility] Vwuwrwz4125-24-61 23:57:03* Test Item Value Reference Range Interpretation Comme nts POC Glu (test code = 9854282098) 145 mg/dL 70-99 H POC Glu Comment 1 (test code = 5186248333) Notified RN/MD POC Performing Location (shruthi t code = 2447116203) [facility] Stroke Lab Interpretation (test cod e = 59027-1) Abnormal [facility] Zmractk6305-53-69 12:11:46* Test Item Value Reference Range Interpretation Comme nts POC Glu (test code = 9069978043) 132 mg/dL 70-99 H POC Glu Comment 1 (test code = 9145084548) Notified RN/MD POC Glu Comment 2 (test code = 0869093119) Sent to lab POC Performing Location (shruthi t code = 3672701141) J9W Stroke Lab Interpretation (test cod e = 67555-6) Abnormal [facility] Gvbptxv4630-63-55 06:47:39* Test Item Value Reference Range Interpretation Comme nts POC Glu (test code = 9989370746) 105 mg/dL 70-99 H POC Performing Location (shruthi t code = 5828828474) J4E REHAB Lab Interpretation (test cod e = 55526-1) Abnormal [facility]2025-01-10 23:59:04* Test Item Value Reference Range Interpretation Comme nts POC Glu (test code = 3644332661) 105 mg/dL 70-99 H POC Glu Comment 1 (test code = 3199401409) Notified RN/MD POC Performing Location (shruthi t code = 6408377354) J4E STROKE Lab Interpretation (test cod e = 68064-1) Abnormal [facility] 12 upeg6482-84-55 17:21:59* Test Item Value Reference Range Interpretation Comme nts Ventricular Rate (test code = 0320767085) BPM Atrial Rate (test code = 1744780540) BPM NE Interval (test code = 1800741233) 150 ms QRS Duration (test code = 4610134606) 116 ms QT/QTc (test code = 3626323186) 446 ms QTc Calculation (test code = 1030657702) 426 ms P-[place] (test code = 6202069661) degrees R-[place] (test code = 3477083525) degrees T-[place] (test code = 3160702637) degrees IMP (test code = IMP) PXN (test code = PXN) [facility] Szufavk3086-38-85 16:51:15* Test Item Value Reference Range Interpretation Comme nts POC Glu (test code = 2520640747) 106 mg/dL 70-99 H POC Glu Comment 1 (test code = 8379073377) Notified RN/MD POC Glu Comment 2 (test code = 0522514384) Sent to lab POC Performing Location (shruthi t code = 0402130841) J4E STROKE Lab Interpretation (test cod e = 73458-9) Abnormal Isaias Mckeon (TTE) rcfbmwsj3424-08-38 14:34:15* Test Item Value Reference Range Interpretation Comme nts BSA (test code = 3644919414) 1.85 m2 LV est EF (test code = 3178567562) 53 % LV biplane EF (test code = 7727658248) 67.8 % LV A2C EF (test code = 2056040567) 73 % LV A4C EF (test code = 2935863179) 64 % LV stroke vol (test code = 4061056750) 75 ml LV SI (BP) (test code = 8699458067) 19.8 ml/m2 LV SI (A2C) (test code = 4197094711) 13.9 ml/m2 LV SI (A4C) (test code = 5579123180) 25.2 ml/m2 LV SV (BP) (test code = 0927041770) 35.4 ml LV SI (A2C) (test code = 0117514750) 24.8 ml LV SV (A4C) (test code = 5269740908) 45.1 ml LVIDd (test code = 0398054020) 50 mm LV ESV BP (test code = 9680837583) 16.8 mL LVIDs (test code = 1059750799) 36 mm LV ESV A2C (test code = 9348745811) 9.19 mL LV EDV BP (test code = 4997752965) 52.2 mL LV ESV A4C (test code = 7335312734) 25.2 mL LV EDV A2C (test code = 6375393163) 34 mL LV EDV A4C (test code = 9155940678) 70.4 mL LV ESV 2D (test code = 2590836) 55.9 mL LV EDV 2D (test code = 6344512) 119 mL IVSd (test code = 2970115405) 8 mm LVPWd (test code = 9286316551) 11 mm LVOT diam (test code = 4255909354) 20 mm LVOT area (test code = 4829858000) 3.14 cm2 Fractional Shortening 2D (test code = 6292216169) 27 % LVLd (A2C) (test code = 7089800156) 66.5 mm LVLd (A4C) (test code = 7229315172) 76.1 mm LVLs (A2C) (test code = 3647210812) 50.8 mm LVLs (A4C) (test code = 2796758710) 62.2 mm MV E pk elmer (test code = 5085015620) 0.9 m/s MV A pk elmer (test code = 2695160238) 0.63 m/s MV E/A ratio (test code = 7747602933) MV e' lateral elmer (test code = 1802663917) 6.84 cm/s MV DT (test code = 9225992456) 254 ms MV e' septal elmer (test code = 8187305) 8.33 cm/s MV E/e' lateral (test code = 2513437) LA vol index (test code = 1766423201) 18.3 mL/m2 MV E/e' septal (test code = 4444558178) LA vol BP (test code = 6629350824) 32.8 ml LVOT pk elmer (test code = 3562427942) 0.94 m/s LVOT mn grad (test code = 0608533587) mmHg LVOT Vmean (test code = 6282542367) 0.65 m/s LVOT VTI (test code = 8398254307) 24 cm LA area A2C (test code = 5557915397) 15.9 cm2 LA area A4C (test code = 3207418538) 13.3 cm2 LA size (test code = 4448912181) 39 mm LA Vol I BSA (test code = 3892918151) 21.3 ml/m2 LA Vol I (A4C) BSA (test code = 1632700209) 15.6 ml/m2 LA ESV A2C (test code = 7332145946) 38.065411074635408 mL LA ESV A4C (test code = 6687029261) 38.836623272916516 mL RVOT VTI (test code = 5221554570) 12.8 cm RVOT pk elmer (test code = 9213189190) 0.69 m/s TAPSE (test code = 9677213238) 25 mm RVOT Vmean (test code = 4806527290) 0.5 m/s AV mn grad (test code = 8232356476) mmHg AV pk grad (test code = 3535582570) mmHg AV mn elmer (test code = 9992304814) 0.89 m/s AV pk elmer (test code = 7677694827) 1.26 m/s AV VTI (test code = 1460969907) 28.7 cm LVOT pk grad (test code = 5772718183) mmHg AV area cont VTI (test code = 6967358080) 2.63 cm2 AV area pk elmer (test code = 9493734723) 2.35 cm2 LVOT Vmax/AV Vmax (test code = 5596510072) 0.75 {ratio} MV mn grad (test code = 2199104648) mmHg MV pk grad (test code = 3160027556) mmHg MV mn elmer (test code = 3874694597) 0.425 m/s MV PHT (test code = 3455988787) 74 ms MV area PHT (test code = 8278947782) 2.97 cm2 MV area cont eq (test code = 1097357623) 2.4 cm2 MV VTI (test code = 2734781591) 31.4 cm TR pk elmer (test code = 1182592494) 3.06 m/s TR pk grad (test code = 9452429859) mmHg PV mn grad (test code = 4521968710) mmHg PV pk elmer (test code = 4841459850) 1.1 m/s PV pk grad (test code = 7472426977) mmHg PV VTI (test code = 4225432) 27.6 cm RVOT mn grad (test code = 9130579243) mmHg RVOT pk grad (test code = 6503004041) mmHg PV mn elmer (test code = 9801806991) 0.66 m/s Ascending aorta (test code = 1784303143) [address] junction (test code = 0319911750) 24 mm Ao Root diam diastole (test code = 1442846119) 29 mm MV max elmer (test code = 7403531600) 0.819 cm/s IVSd 2D (test code = 1217234) 8.41 cm Radiology Study observation (narrative) (test code = 20508-4) CHUYITA (test code = CHUYITA) [facility] Qgxeqnw1677-69-11 13:53:06* Test Item Value Reference Range Interpretation Comme nts POC Glu (test code = 4304392018) 88 mg/dL 70-99 POC Performing Location (shruthi t code = 6096263804) HH LAB [facility] Keigdfh6483-36-21 08:11:37* Test Item Value Reference Range Interpretation Comme nts POC Glu (test code = 1934288593) 104 mg/dL 70-99 H POC Performing Location (shruthi t code = 0521824047) NEURO Lab Interpretation (test cod e = 73530-8) Abnormal [facility] Iqbbrpl2959-60-48 07:53:41* Test Item Value Reference Range Interpretation Comme nts POC Glu (test code = 1339369877) 127 mg/dL 70-99 H POC Performing Location (shruthi t code = 7362678431) NSICU Lab Interpretation (test cod e = 98066-7) Abnormal [facility] Xjnofeb5899-49-53 00:27:29* Test Item Value Reference Range Interpretation Comme nts POC Glu (test code = 3862864901) 132 mg/dL 70-99 H POC Performing Location (shruthi t code = 0592583551) 7 NSICU Lab Interpretation (test cod e = 16722-9) Abnormal [facility] Xamvqry4920-46-84 20:02:13* Test Item Value Reference Range Interpretation Comme nts POC Glu (test code = 1276044731) 123 mg/dL 70-99 H POC Glu Comment 1 (test code = 1612633032) Notified RN/MD POC Performing Location (shruthi t code = 8073366442) 7 NSICU Lab Interpretation (test cod e = 52000-0) Abnormal [facility] Edhjaeb8422-62-64 14:53:22* Test Item Value Reference Range Interpretation Comme nts POC Glu (test code = 7717507370) 90 mg/dL 70-99 POC Performing Location (shruthi t code = 9439847129) NEURO [facility] URINALYSIS, OSYEBGPZMV9642-77-82 17:00:00* Test Item Value Reference Range Interpretation Comme nts POCT U SP GRAV (test code = 3255) 1.010 mg/dl 1.005-1.025 POCT PH U (test code = 3254) 6.5 mg/dl 5-8 POCT U LEUK EST (test code = 3263) trace Negative - Negative POCT U NIT (test code = 3262) negative Negative - Negati ve POCT U PROT (test code = 3259) negative Negative - Negative POCT U GLU (test code = 3256) negative Negative - Negati ve POCT U KETONE (test code = 3258) negative Negative - Negative POCT U UROBILI (test code = 3260) 0.2 mg/dl 0.2-1 POCT U BILI (test code = 3261) negative Negative - Negative POCT U BLD (test code = 3257) negative Negative - Negati ve POCT U COLOR (test code = 3266) yellow POCT U APPEAR (test code = 3267) clear Lab Interpretation (test cod e = 44614-4) [facility] URINALYSIS, MYKCFKNKQF2654-81-47 17:00:00 * Test Item Value Reference Range Interpretation Comme nts POCT U SP GRAV (test code = 3255) 1.010 mg/dl 1.005-1.025 POCT PH U (test code = 3254) 6.5 mg/dl 5-8 POCT U LEUK EST (test code = 3263) trace Negative - Negative POCT U NIT (test code = 3262) negative Negative - Negati ve POCT U PROT (test code = 3259) negative Negative - Negative POCT U GLU (test code = 3256) negative Negative - Negati ve POCT U KETONE (test code = 3258) negative Negative - Negative POCT U UROBILI (test code = 3260) 0.2 mg/dl 0.2-1 POCT U BILI (test code = 3261) negative Negative - Negative POCT U BLD (test code = 3257) negative Negative - Negati ve POCT U COLOR (test code = 3266) yellow POCT U APPEAR (test code = 3267) clear Lab Interpretation (test cod e = 04291-5) Normal [facility] WITH TFXA3426-89-61 19:30:48* Test Item Value Reference Range Interpretation Comme nts WBC (test code = 6690-2) See_Comment L [Automated messa ge] The system which generated this result transmitted reference range: 4.30 - 11.10 10*3/?L. The reference range was not used to interpret this result as normal/abnormal. RBC (test code = 789-8) See_Comment [Automated messa ge] The system which generated this result transmitted reference range: 3.93 - 5.25 10*6/?L. The reference range was not used to interpret this result as normal/abnormal. HGB (test code = 718-7) 13.9 g/dL 11.6-15.0 HCT (test code = 4544-3) 44.4 % 35.7-45.2 MCV (test code = 787-2) 85.9 fL 80.6-95.5 MCH (test code = 785-6) 26.9 pg 25.9-32.8 MCHC (test code = 786-4) 31.3 g/dL 31.6-35.1 L RDW-SD (test code = 36337-4) 44.2 fL 39.0-49.9 RDW-CV (test code = 788-0) 13.9 % 12.0-15.5 PLT (test code = 777-3) See_Comment [Automated messa ge] The system which generated this result transmitted reference range: 166 - 358 10*3/?L. The reference range was not used to interpret this result as normal/abnormal. MPV (test code = 15205-1) 11.0 fL 9.5-12.9 NRBC/100 WBC (test code = 1630774558) See_Comment [Automated [email or web address] ssage] The system which generated this result transmitted reference range: 0.0 - 10.0 /100 WBCs. The reference range was not used to interpret this result as normal/abnormal. NRBC x10^3 (test code = 2198695865) <0.01 See_Comment [Automated messa ge] The system which generated this result transmitted reference range: 10*3/?L. The reference range was not used to interpret this result as normal/abnormal. GRAN MAT (NEUT) % (test code = 770-8) 35.5 % IMM GRAN % (test code = 6254764958) 0.00 % LYMPH % (test code = 736-9) 43.0 % MONO % (test code = 5905-5) 16.7 % EOS % (test code = 713-8) 3.7 % BASO % (test code = 706-2) 1.1 % GRAN MAT x10^3(ANC) (test code = 0153713439) 0.96 10*3/uL 1.88-7.09 L IMM GRAN x10^3 (test code = 1954196602) <0.03 0.00-0.06 LYMPH x10^3 (test code = 731-0) 1.16 10*3/uL 1.32-3.29 L MONO x10^3 (test code = 742-7) 0.45 10*3/uL 0.33-0.92 EOS x10^3 (test code = 711-2) 0.10 10*3/uL 0.03-0.39 BASO x10^3 (test code = 704-7) 0.03 10*3/uL 0.01-0.07 REACT LYMPHS (test code = 6609053134) Moderate Lab Interpretation (test code = 81439-4) Abnormal [facility] Consult Notes Date/Time Note Provider Source 2024-08-06 14:06:48 NUTRITION ASSESSMENT - ADULT Unit: 4EJ Inpatient Rehabilitation Reason for RD Encounter: F/U Findings Nutrition Diagnosis: Nutrition Diagnosis: Inadequate oral intake related to dysphagia as evidenced by NPO status and painful chewing/swallowing. Evaluation: resolved * Interventions and Recommendation: Continue current nutrition plan - 50% bolus TF rule. Pt with adequate PO intake and has not received a bolus in several days NUTRITION RISK: Low, in 8-10 days Next Date for Nutrition Services Follow Up: 08/16/24 Communication : JOSE ROBERTO Current Nutrition: Dietary Orders (From admission, onward) Start Ordered 08/06/24 0932 Adult Diet Dysphagia; 0 - Thin Liquids; 6 - Soft & Bite Sized (Dysphagia Advanced); No; 1:1 Feeding Diet effective now Question Answer Comment Diet type Dysphagia Liquid Consistency or Liquid Type: 0 - Thin Liquids Modify Texture or Food Level (Dysphagia): 6 - Soft & Bite Sized (Dysphagia Advanced) Room Service: No Tray Precautions: 1:1 Feeding 08/06/24 0931 Orderered Tube Feeds and Supplements Medication Dose Route Frequency Provider Last Rate Last Admin Enteral Free water Flush 240 mL 240 mL Per PEG Tube q6h Salomon Rubio DO 240 mL at 08/06/24 0500 Fibersource HN liquid 375 mL 375 mL Per PEG Tube 4x daily Monet Blake MD 375 mL at 08/04/24 2058 PO/EN/PN Intakes: TF providing <10% kcal and protein needs as pt is eating well by mouth Percent Meals Eaten for the past 48 hrs: Percent Meals Eaten (%) 08/06/24 0800 75 08/05/24 1747 100 08/05/24 1400 75 08/05/24 0800 75 08/04/24 1800 100 Nutrition Visit Information: 08/06: Dysphagia diet ordered 07/30. 50% bolus rule ordered 08/01 by PM&R team Last bolus was once on 08/03. LBM today. 07/30: Pt tolerating bolus TF regimen via PEG. Denies V/D. 07/27 - Completed assessment. Pt reports UBW 165#. NFPE completed and mild deficit noted in quadricep region, otherwise unremarkable. Tolerating bolus TF although did feel hungry after bolus this morning. 07/23 - Pt had PEG placed 07/22. Bolus feeds initiated per PM&R team. RD unable to assess pt today, will attempt on Friday. Anthropometrics: Height: 157.5 cm (5' 2.01") Weight: 78.4 kg Body mass index is 28.94 kg/m?. [place] body weight: 50.1 kg (110 lb 7.9 oz) Adjusted ideal body weight: 58.8 kg (129 lb 9.8 oz) Wt Readings from Last 10 Encounters: 08/01/24 71.8 kg (158 lb 4.6 oz) 07/16/24 78.4 kg (172 lb 13.5 oz) 09/24/23 78.2 kg (172 lb 7.8 oz) 05/12/23 83.9 kg (184 lb 14.2 oz) 04/03/23 76.8 kg (169 lb 5.7 oz) 03/26/23 78.2 kg (172 lb 5.8 oz) Estimated Nutrition Needs: Weight Used for Equation Calculations: 50.1 kg (110 lb 7.9 oz) Calculated Energy Needs Using Equations Height: 1.575 m (5' 2.01") Weight Used for Equation Calculations: 50.1 kg (110 lb 7.9 oz) (kcal/kg) Energy Lower Range: 25 (kcal/kg) Energy Upper Range: 30 (kcal/day) Energy Needs Lower Range: 1253 kcal/day (kcal/day) Energy Needs Upper Range: 1504 kcal/day Temp: 36.6 ?C (97.9 ?F) Estimated Protein Needs (g/kg) Protein Lower Range: 1.5 (g/kg) Protein Upper Range: 2.0 (g/day) Protein Lower Range: 75 g/day (g/day) Protein Upper Range: 100 g/day Fluid Needs Fluid Needs Method: mL/kg/day; Or per MD (mL/kg) Fluid Needs: 25 (mL/day) Fluid Needs (Calculated): 1253 mL/day Nutrition Physical Findings per guard range: Orientation Level: Oriented X4 Gastrointestinal (WDL): WDL Abdomen Inspection: Gastrostomy tube Abdominal Tenderness: Nontender Bowel Sounds: All quadrants Bowel Sounds (All Quadrants): Active Last BM Date: 08/05/24 LUE: Limited movement RUE: Full movement LLE: Limited movement RLE: Limited movement LUE Edema: Non-pitting RUE Edema: Dependent LLE Edema: Non-pitting RLE Edema: Non-pitting Wound 07/15/24 Anterior;Right Groin (Active) Wound Anterior;Right;Lower Arm (Active) Wound 07/23/24 Anterior;Left;Lower Arm (Active) Nutrition Focused Physical Exam - Muscles and Fat: Assessment of Muscle Status Date Assessed: 08/06/24 Unable to Assess Due to?: 07/23 defer Muscle Status: No deficits noted Assessment of Fat Status Date Assessed: 08/06/24 Unable to Assess Due to?: 07/23 defer Fat Status: No deficits noted Orbital Region: [id number] deficit: Somewhat hollow look, slightly dark circles Basic Information: Admitting diagnosis: CVA (cerebrovascular accident due to intracerebral hemorrhage) (HCC) [I61.9] Clinical course: Ms. Toney Martel ( , 1945) with PMH of HTN , who presented 07/15/2024 after she woke up this morning at 0815a with slurred speech, right facial droop, and left sided weakness with LSN 2029 (07/14/24) Medications: aspirin, 81 mg, Per G Tube, Daily atorvastatin, 80 mg, Nasogastric, Nightly Docusate Sodium, 100 mg, Per G Tube, BID Enteral Free water Flush, 240 mL, Per PEG Tube, q6h Fibersource HN, 375 mL, Per PEG Tube, 4x daily gabapentin, 300 mg, Per G Tube, TID heparin, 5,000 Units, Subcutaneous, q8h senna, 10 mL, Per G Tube, Nightly PRN medications: acetaminophen, bisacodyl, dextrose, glucagon, melatonin, sodium chloride Labs: Pertinent Labs : Labs Reviewed Lab Results Component Value Date Hgb A1C 5.51 07/15/2024 Review / Management: I/O 24 HRS: No intake or output data in the 24 hours ending 08/06/24 1408 Unmeasured Stool Occurrence: 1 Monitoring and Evaluation: MONITORING AND EVALUATION: Weight changes, Muscle wasting, Fat wasting, and Digestive/abdominal assessment GOAL: >75% of estimated needs met: met Registered Dietitian Abby Stern MS, RD LD Mon-Fri pager [phone] | [phone] On-[address] RD pager [phone] [facility] Nutrition [facility] 2024-07-30 10:13:17 NUTRITION ASSESSMENT - ADULT Unit: [facility] Inpatient Rehabilitation Reason for RD Encounter: EN F/U Findings Nutrition Diagnosis: Nutrition Diagnosis: Inadequate oral intake related to dysphagia as evidenced by NPO status and painful chewing/swallowing. * Interventions and Recommendation: Continue Bolus TF: Fibersource HN @ 375 ml (1.5 cans) QID (total 6 cans/d) (provides 1800 kcal, 81 g pro). If pt continues to feel hunger w/ bolus TF, can switch to less concentrated formula for greater bolus volumes: Promote with Fiber 500 mL TID + 250 mL HS bolus (total QID). Water flush 30 ml pre/post feeds. Provides 1800 kcal, 110 g protein, ~1.74 L water daily. NUTRITION RISK: Moderate, in 5-7 days Next Date for Nutrition Services Follow Up: 08/06/24 Communication : [facility] Current Nutrition: Dietary Orders (From admission, onward) Start Ordered 07/23/24 1254 NPO Diet Diet effective now 07/23/24 1253 Orderered Tube Feeds and Supplements Medication Dose Route Frequency Provider Last Rate Last Admin Enteral Free water Flush 240 mL 240 mL Per PEG Tube q6h Salomon Rubio DO 240 mL at 07/30/24 0530 Fibersource HN liquid 375 mL 375 mL Per PEG Tube 4x daily Kwabena Metzger MD 375 mL at 07/29/24 2104 PO/EN/PN Intakes: Per 7-day Kangaroo pump, pt met 100% of kcal needs and 88% of protein needs No data found. Nutrition Visit Information: 07/30: Pt tolerating bolus TF regimen via PEG. Denies V/D. 07/27 - Completed assessment. Pt reports UBW 165#. NFPE completed and mild deficit noted in quadricep region, otherwise unremarkable. Tolerating bolus TF although did feel hungry after bolus this morning. 07/23 - Pt had PEG placed 07/22. Bolus feeds initiated per PM&R team. RD unable to assess pt today, will attempt on Friday. Anthropometrics: Height: 157.5 cm (5' 2.01") Weight: 78.4 kg Body mass index is 29.59 kg/m?. [place] body weight: 50.1 kg (110 lb 7.9 oz) Adjusted ideal body weight: 59.4 kg (131 lb 0.3 oz) Wt Readings from Last 10 Encounters: 07/25/24 73.4 kg (161 lb 13.1 oz) 07/16/24 78.4 kg (172 lb 13.5 oz) 09/24/23 78.2 kg (172 lb 7.8 oz) 05/12/23 83.9 kg (184 lb 14.2 oz) 04/03/23 76.8 kg (169 lb 5.7 oz) 03/26/23 78.2 kg (172 lb 5.8 oz) Estimated Nutrition Needs: Weight Used for Equation Calculations: 50.1 kg (110 lb 7.9 oz) Calculated Energy Needs Using Equations Height: 1.575 m (5' 2.01") Weight Used for Equation Calculations: 50.1 kg (110 lb 7.9 oz) (kcal/kg) Energy Lower Range: 25 (kcal/kg) Energy Upper Range: 30 (kcal/day) Energy Needs Lower Range: 1253 kcal/day (kcal/day) Energy Needs Upper Range: 1504 kcal/day Temp: 37.1 ?C (98.7 ?F) Estimated Protein Needs (g/kg) Protein Lower Range: 1.5 (g/kg) Protein Upper Range: 2.0 (g/day) Protein Lower Range: 75 g/day (g/day) Protein Upper Range: 100 g/day Fluid Needs Fluid Needs Method: mL/kg/day; Or per MD (mL/kg) Fluid Needs: 25 (mL/day) Fluid Needs (Calculated): 1253 mL/day Nutrition Physical Findings per guard range: Orientation Level: Oriented X4 Gastrointestinal (WDL): WDL Abdomen Inspection: Soft Abdominal Tenderness: Soft Bowel Sounds: All quadrants Bowel Sounds (All Quadrants): Active Last BM Date: 07/28/24 LUE: Limited movement RUE: Full movement LLE: Limited movement RLE: Limited movement LUE Edema: Non-pitting RUE Edema: Dependent LLE Edema: Non-pitting RLE Edema: Non-pitting Wound 07/15/24 Anterior;Right Groin (Active) Wound Anterior;Right;Lower Arm (Active) Wound 07/23/24 Anterior;Left;Lower Arm (Active) Nutrition Focused Physical Exam - Muscles and Fat: Assessment of Muscle Status Date Assessed: 07/30/24 Unable to Assess Due to?: 07/23 defer Muscle Status: No deficits noted Assessment of Fat Status Date Assessed: 07/30/24 Unable to Assess Due to?: 07/23 defer Orbital Region: [id number] deficit: Somewhat hollow look, slightly dark circles Basic Information: Admitting diagnosis: CVA (cerebrovascular accident due to intracerebral hemorrhage) ([facility]) [I61.9] Clinical course: Ms. Toney Martel ( , 1945) with PMH of HTN , who presented 07/15/2024 after she woke up this morning at 0815a with slurred speech, right facial droop, and left sided weakness with LSN 2030 (07/14/24) Medications: aspirin, 81 mg, Per G Tube, Daily atorvastatin, 80 mg, Nasogastric, Nightly Docusate Sodium, 100 mg, Per G Tube, BID Enteral Free water Flush, 240 mL, Per PEG Tube, q6h Fibersource HN, 375 mL, Per PEG Tube, 4x daily heparin, 5,000 Units, Subcutaneous, q8h senna, 10 mL, Per G Tube, Nightly PRN medications: acetaminophen, bisacodyl, dextrose, glucagon, melatonin, sodium chloride Labs: Pertinent Labs : Labs Reviewed Lab Results Component Value Date Hgb A1C 5.51 07/15/2024 Review / Management: I/O 24 HRS: Intake/Output Summary (Last 24 hours) at 07/30/2024 1013 Last data filed at 07/29/2024 1315 Gross per 24 hour Intake -- Output 300 ml Net -300 ml Unmeasured Stool Occurrence: 1 Monitoring and Evaluation: MONITORING AND EVALUATION: Weight changes, Muscle wasting, Fat wasting, and Digestive/abdominal assessment GOAL: >75% of estimated needs met: Kaitlyn Alicia MPH RD LD Friday-Friday pager [phone] Weekend/Oncall pager [phone] CAL RECEPTIONIST Nutrition [facility] 2024-07-29 11:07:02 Spiritual Care Subjective Reason For Visit Care Recipient: Patient Time spent: 15 minutes Reason for Visit: Admission request Interventions Relationship Building Interventions: Provided compassionate presence, Listened with empathy, Provided hospitality Exploration Interventions: Explored goals of care Empowerment Interventions: Provided climatologist education Ritual Interventions: Provided prayer Outcomes Expressed: Gratitude, Acceptance, Feeling heard Expressed feeling heard: Partial progress Expressed gratitude: Observed Clarified: Goals of care Clarified goals of care: Observed Assessment Spiritual Resources: Darya/trust Plan Follow-up: Follow PRN Follow-up For: Spiritual support, Emotional support [facility] Pastoral Care [facility] 2024-07-23 14:48:08 Associated Order(s): IP CONSULT TO NUTRITION SERVICES 07/27 - Completed assessment. Pt reports UBW 165#. NFPE completed and mild deficit noted in quadricep region, otherwise unremarkable. Tolerating bolus TF although did feel hungry after bolus this morning. If pt continues to feel hunger w/ bolus TF, can switch to less concentrated formula for greater bolus volumes Promote with Fiber 500 mL TID + 250 mL HS bolus (total QID). Water flush 30 ml pre/post feeds. Provides 1800 kcal, 110 g protein, ~1.74 L water daily. NUTRITION ASSESSMENT - ADULT Unit: [facility] Inpatient Rehabilitation Reason for RD Encounter: c/s for eval & treat Findings Nutrition Diagnosis: Nutrition Diagnosis: Inadequate oral intake related to dysphagia as evidenced by NPO status and painful chewing/swallowing. * Interventions and Recommendation: Continue Bolus TF: Fibersource HN @ 375 ml (1.5 cans) QID (total 6 cans/d) (provides 1800 kcal, 81 g pro). NUTRITION RISK: Moderate, in 5-7 days Next Date for Nutrition Services Follow Up: 07/30/24 Communication : [facility] Current Nutrition: Dietary Orders (From admission, onward) Start Ordered 07/23/24 1254 NPO Diet Diet effective now 07/23/24 1253 Orderered Tube Feeds and Supplements Medication Dose Route Frequency Provider Last Rate Last Admin Enteral Free water Flush 60 mL 60 mL Per PEG Tube q4h Kwabena Metzger MD 60 mL at 07/23/24 1315 Fibersource HN liquid 375 mL 375 mL Per PEG Tube 4x daily Kwabena Metzger MD 375 mL at 07/23/24 1327 PO/EN/PN Intakes: No data found. Nutrition Visit Information: 07/23 - Pt had PEG placed 07/22. Bolus feeds initiated per PM&R team. RD unable to assess pt today, will attempt on Friday. Anthropometrics: Height: 157.5 cm (5' 2.01") Weight: 78.4 kg Body mass index is 31.6 kg/m?. [place] body weight: 50.1 kg (110 lb 7.9 oz) Adjusted ideal body weight: 61.4 kg (135 lb 6.9 oz) Wt Readings from Last 10 Encounters: 07/23/24 78.4 kg (172 lb 13.5 oz) 07/16/24 78.4 kg (172 lb 13.5 oz) 09/24/23 78.2 kg (172 lb 7.8 oz) 05/12/23 83.9 kg (184 lb 14.2 oz) 04/03/23 76.8 kg (169 lb 5.7 oz) 03/26/23 78.2 kg (172 lb 5.8 oz) Estimated Nutrition Needs: Weight Used for Equation Calculations: 50.1 kg (110 lb 7.9 oz) Calculated Energy Needs Using Equations Height: 1.575 m (5' 2.01") Weight Used for Equation Calculations: 50.1 kg (110 lb 7.9 oz) (kcal/kg) Energy Lower Range: 25 (kcal/kg) Energy Upper Range: 30 (kcal/day) Energy Needs Lower Range: 1253 kcal/day (kcal/day) Energy Needs Upper Range: 1504 kcal/day Temp: 36.7 ?C (98 ?F) Estimated Protein Needs (g/kg) Protein Lower Range: 1.5 (g/kg) Protein Upper Range: 2.0 (g/day) Protein Lower Range: 75 g/day (g/day) Protein Upper Range: 100 g/day Fluid Needs Fluid Needs Method: mL/kg/day; Or per MD (mL/kg) Fluid Needs: 25 (mL/day) Fluid Needs (Calculated): 1253 mL/day Nutrition Physical Findings per guard range: Wound 07/15/24 Anterior;Right Groin (Active) Nutrition Focused Physical Exam - Muscles and Fat: Assessment of Muscle Status Unable to Assess Due to?: 07/23 defer Assessment of Fat Status Unable to Assess Due to?: 07/23 defer Basic Information: Admitting diagnosis: CVA (cerebrovascular accident due to intracerebral hemorrhage) (HCC) [I61.9] Clinical course: Ms. Toney Martel ( , 1945) with PMH of HTN , who presented 07/15/2024 after she woke up this morning at 0815a with slurred speech, right facial droop, and left sided weakness with LSN 2029 (07/14/24) Medications: [START ON 07/24/2024] aspirin, 81 mg, Per G Tube, Daily atorvastatin, 80 mg, Nasogastric, Nightly Docusate Sodium, 100 mg, Per G Tube, BID Enteral Free water Flush, 60 mL, Per PEG Tube, q4h Fibersource HN, 375 mL, Per PEG Tube, 4x daily heparin, 5,000 Units, Subcutaneous, q8h sennosides, 10 mL, Per G Tube, Daily PRN medications: acetaminophen, bisacodyl, dextrose, glucagon, melatonin, sodium chloride Labs: Pertinent Labs : Labs Reviewed Lab Results Component Value Date Hgb A1C 5.51 07/15/2024 Review / Management: I/O 24 HRS: No intake or output data in the 24 hours ending 07/23/24 1448 Monitoring and Evaluation: MONITORING AND EVALUATION: Weight changes, Muscle wasting, Fat wasting, and Digestive/abdominal assessment GOAL: >75% of estimated needs met: Registered Dietitian Abby Stern MS, RD LD Fri-Fri pager [phone] On-call RD pager [phone] CAL RECEPTIONIST CAL RECEPTIONIST [facility] 2024-07-22 10:45:00 Spiritual Care Subjective Crew Supervisor met with the patient and cultivated a relationship of care and support through a warm presence and listening. The patient's was at bedside, he shared that they are Christians, and he was reading the bible and praying for his 's healing. Crew Supervisor provided encouragement through scripture reading and prayer. The patient and expressed gratitude for the tumor registrar's visit. Reason For Visit Care Recipient: Patient and family together (The patient's ' Smeldy was at bedside.) Time spent: 15 minutes Reason for Visit: Rounds visit Referral From: Crew Supervisor Interventions Exploration Interventions: Explored emotional needs and resources, Explored relational needs and resources, Explored spiritual needs and resources, Facilitated storytelling, Explored coping strategies Empowerment Interventions: Encouraged focus on present, Encouraged self-care, Provided climatologist education, Reinforced helpful coping strategies Outcomes Expressed: Gratitude Assessment Spiritual Resources: Gratitude Plan Follow-up: No follow-up warranted at this time [facility] Pastoral [facility] 2024-07-16 10:35:42 Associated Order(s): IP CONSULT TO NUTRITION SERVICES; IP SCREENING REFERRAL TO NUTRITION SERVICES; IP CONSULT TO NUTRITION SERVICES; IP CONSULT TO NUTRITION SERVICES 07/23: consulted for bolus TF s/p peg. Will transition to fibersource hn @ 375 ml (1.5 cans) qid (total 6 cans/d) (provides 1800 kcal, 81 g pro). 07/19: tf running @ goal rate of 70 ml/hr. Pt with emesis overnight. Pt denies any nausea at this time. +bm this am. 07/17: Pt made NPO per JAVA SDET. TF consult received. Team already ordered Promote@ 60mL/hr - slightly underfeeding. RD messaged MD and changing the rate to 70mL/hr. Promote@ 70mL/hr to provide 1540kcal and 97g protein over 22hrs. Nutrition will monitor TF intake/tolerance. NUTRITION ASSESSMENT - ADULT Unit: [facility] Reason for RD Encounter: Screening Reason : Recently lost 10 lbs without trying and Eaten less than half of meals for >3 days Findings Nutrition Diagnosis: Nutrition Diagnosis: Inadequate oral intake related to decreased ability to consume sufficient energy as evidenced by NPO status. * Interventions and Recommendation: Diet advancement per JAVA SDET recommendations NUTRITION RISK: Low, in 8-10 days Next Date for Nutrition Services Follow Up: 07/26/24 Communication : Primary team Current Nutrition: Dietary Orders (From admission, onward) Start Ordered 07/15/24 1353 NPO Diet Diet effective now 07/15/24 1352 Orderered Tube Feeds and Supplements Medication Dose Route Frequency Provider Last Rate Last Admin None PO/EN/PN Intakes: No data found. Nutrition Visit Information: 07/16 - Pt seen with and son at bedside. 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 Currently NPO pending JAVA SDET recommendation. Anthropometrics: Weight: Weight Method: Bed scale There is no height or weight on file to calculate BMI. Height is required to calculate ideal body weight. Wt Readings from Last 10 Encounters: 07/15/24 78.4 kg (172 lb 13.5 oz) Estimated Nutrition Needs: Weight Used for Equation Calculations: 65 kg (143 lb 4.8 oz) (IBW +!0%) Calculated Energy Needs Using Equations Weight Used for Equation Calculations: 65 kg (143 lb 4.8 oz) (IBW +!0%) Energy Equation Used: Rule of thumb (kcal/kg) Energy Lower Range: 22 (kcal/kg) Energy Upper Range: 25 (kcal/day) Energy Needs Lower Range: 1430 kcal/day (kcal/day) Energy Needs Upper Range: 1625 kcal/day Temp: 37.7 ?C (99.8 ?F) Estimated Protein Needs (g/kg) Protein Lower Range: 1.5 (g/kg) Protein Upper Range: 1.8 (g/day) Protein Lower Range: 97 g/day (g/day) Protein Upper Range: 117 g/day Fluid Needs Fluid Needs Method: Or per MD (mL/kg) Fluid Needs: 25 (mL/day) Fluid Needs (Calculated): 1625 mL/day Nutrition Physical Findings per guard range: Orientation Level: Disoriented to situation O2 Delivery Method: Simple mask Gastrointestinal (WDL): X Abdomen Inspection: Soft; Rounded Abdominal Tenderness: Soft; No guarding; Nontender Bowel Sounds: All quadrants Bowel Sounds (All Quadrants): Active Last BM Date: (RIGGING ENGINEER) LUE: Limited movement RUE: Limited movement LLE: Limited movement RLE: Limited movement Wound 07/15/24 Anterior;Right Groin (Active) Nutrition Focused Physical Exam - Muscles and Fat: Assessment of Muscle Status Date Assessed: 07/16/24 Muscle Status: No deficits noted Assessment of Fat Status Date Assessed: 07/16/24 Fat Status: No deficits noted Basic Information: Admitting diagnosis: Stroke, acute, thrombotic (HCC) [I63.9] Clinical course: presented 07/15/2024 after she woke up this morning at 0815a with slurred speech, facial droop, R-gaze, and left sided weakness with LSN 2029 (07/14/24). Medications: atorvastatin, 80 mg, Nasogastric, Nightly heparin, 5,000 Units, Subcutaneous, q8h polyethylene glycol (PEG) 3350, 17 g, Per G Tube, BID sennosides, 8.6 mg, Per G Tube, BID electrolyte solution pH 7.4, 75 mL/hr, Last Rate: 75 mL/hr (07/16/24 1016) PRN medications: acetaminophen, calcium gluconate, magnesium sulfate, polyethylene glycol (PEG) 3350, potassium & sodium phosphates OR potassium & sodium phosphates, potassium chloride OR potassium chloride OR potassium chloride OR Potassium chloride, [COMPLETED] Insert peripheral IV AND [COMPLETED] Saline lock IV AND sodium chloride, sodium chloride, sodium phosphates 45 mmol in sodium chloride 0.9 % 250 mL IVPB Labs: Pertinent Labs : Lab Results Component Value Date Sodium Lvl 145 07/16/2024 Potassium Lvl 4.0 07/16/2024 Chloride Lvl 111 (H) 07/16/2024 CO2 Lvl 23.5 07/16/2024 BUN 14 07/16/2024 Creatinine Lvl 0.85 07/16/2024 Glucose Lvl 136 (H) 07/16/2024 POC Glu 104 (H) 07/16/2024 Lab Results Component Value Date Calcium Lvl 8.1 (L) 07/16/2024 Magnesium 1.95 07/16/2024 Phosphorus Lvl 3.7 07/16/2024 Lab Results Component Value Date Hgb A1C 5.51 07/15/2024 Review / Management: I/O 24 HRS: Intake/Output Summary (Last 24 hours) at 07/16/2024 1035 Last data filed at 07/16/2024 0600 Gross per 24 hour Intake 937.09 ml Output 2060 ml Net -1122.91 ml Monitoring and Evaluation: MONITORING AND EVALUATION: Digestive/abdominal assessment and Nutrition Intake : PO intake and tolerance GOAL: Initiate nutrition: Sparkle Franco RD, LD, [facility] Pager [phone] Weekend Pager [phone] CAL RECEPTIONIST CAL RECEPTIONIST CAL RECEPTIONIST CAL RECEPTIONIST CAL RECEPTIONIST Nutrition [facility] 2024-07-16 10:34:49 Spiritual Care Subjective Crew Supervisor rounded back to patient's room, and met & visited with patient's and son (Hardy) in hallway of unit while medical team got patient situated back in pt's room. Crew Supervisor introduced herself, provided climatologist education, provided compassionate presence, and facilitated story-telling. Pt's and son began to share about patient's episode and medical condition. Pt's expressed himself verbally and tearfully. Crew Supervisor ushered pt's family into pt's room to continue the visit when med team was done tending to patient. Crew Supervisor met patient, introduced herself, and provided compassionate support to pt & family together. Pt's son shared with patient that Crew Supervisor would offer a word of prayer. Pt shook her head, as to say, "Yes. Okay." Crew Supervisor provided prayer and shared encouraging words. Patient, , and son expressed gratitude to Crew Supervisor for her care, and for praying & visiting with them. Crew Supervisor shared that Electric Mule Operator support remains available to patient and family. Family thanked Crew Supervisor & expressed that they desired more visits/support from Crew Supervisor(s). They would benefit from additional climatologist support. Crew Supervisor to follow as circumstances allow. Reason For Visit Care Recipient: Patient and family together Time spent: 30 minutes Reason for Visit: Admission request Referral From: Crew Supervisor Interventions Relationship Building Interventions: Cultivated a relationship of care and support, Provided compassionate presence Exploration Interventions: Explored emotional needs and resources, Explored spiritual needs and resources, Facilitated storytelling, Facilitated life review Empowerment Interventions: Encouraged focus on present, Provided anxiety containment, Provided climatologist education, Encouraged self-care Collaboration Interventions: Coordinated with interdisciplinary team Ritual Interventions: Provided prayer, Facilitated/provided blessing Outcomes Expressed: Catharsis, Feeling heard, Gratitude Expressed catharsis: Observed Expressed feeling heard: Observed Expressed gratitude: Observed Distress reduced: Observed Processed: Experience, Emotions tearfully, Emotions verbally Tearfully processed emotions: Observed Verbally processed emotions: Observed Identified: Emotions, Resources Identified resources: Observed Assessment Spiritual Resources: Darya/trust, Gratitude Emotional Resources: Adaptability, Optimism Relational Resources: Family, Spiritual community Intermediate/Finite Hopes: That patient will get better & be back home soon. Plan Follow-up: Follow as circumstances allow [facility] 2024-07-16 07:34:00 Neurocritical Care Consultation Note Consulted by stroke for medical mgmt of stroke History Of Present Illness Ms. Toney Martel ( , 1945) with PMH of HTN, who presented 07/15/2024 after she woke up this morning at 0815a with slurred speech, facial droop, R-gaze, and left sided weakness with LSN 2030 (07/14/24). Initial NIHSS of 17, BG 90 and SBP 140. CTH no acute hemorrhage, noted early acute ischemic changes in R MCA and BIOINFORMATICS TECHNICIAN regions with ASPECTS of 7. CTA w/ R ICA dissection, acute occlusion in R ICA and distal reconstitution of flow in MCA territory but M2 and P-com occlusion and CTP with 48mm mismatch. OOW for TNK. Pt then taken emergently to angio for mechanical thrombectomy of supraclinoid right ICA occlusion and right superior division right middle cerebral artery M2 occlusion with TICI3 reperfusion after a total of 3 passes. Admitted to Neuro ICU post-thrombectomy for further mgmt. Interval Events: 07/15/24: Admit to Neuro ICU. OOW TNK. S/p IAT of supraclinoid right ICA occlusion and right superior division right middle cerebral artery M2 occlusion with TICI-3 after 3 passes. SBP 90-140 07/16: off cardene overnight Past Medical History has a past medical history of Hypertension. Surgical History has no past surgical history on file. Family History No family history on file. Social History Social History Tobacco Use Smoking status: Never Smokeless tobacco: Never Substance Use Topics Alcohol use: Never Drug use: Never Allergies Patient has no allergy information on record. Home Medications No medications prior to admission. Review of Systems ROS all negative except those noted in HPI Physical Exam pre-admit mRS: Score 0: No symptoms at all. NIH STROKE SCALE SCORE ON ADMISSION 1a. 1a. LOC Level of Consciousness 0-Alert 1-Drowsy 2-Stupor 3-Coma 1b. LOC Questions (Month and Age) 0-both 1-One 2-Neither 1c. LOC Commands (Open/close eyes, Web Marketing Coordinator/release non-paretic hand) 0-Both 1-One 2-Neither 2 2. Best Gaze 0-Normal 1-Partial 2-Forced gaze 2 3. Visual Conley 0-No visual loss. 1-Partial hemianopia 2-Complete 3-Bilateral 3 4. Facial Palsy 0-None 1-Minor 2-Partial 3-Complete 5. Motor - R arm 0-No drift 1-Drift 2-Some antigravity 3-No antigravity 4-No movement 6. Motor - R leg 0-No drift 1-Drift 2-Some antigravity 3-No antigravity 4-No movement 4 7. Motor - L arm 0-No drift 1-Drift 2-Some antigravity 3-No antigravity 4-No movement 2 8. Motor - L leg 0-No drift 1-Drift 2-Some antigravity 3-No antigravity 4-No movement 9. Limb Ataxia 0-Absent 1-1limb 2-2 limbs 2 10. Sensory 0-Normal 1-Partial loss 2-Dense loss 11. Best Language 0-Normal 1-Mild/mod 2-Severe 3-Mute 2 12. Dysarthria 0-Normal 1-Mild/mod 2-Severe X-Untestable 13. Extinction and Inattention (formerly Neglect) 0-none 1-Partial 2-complete 17 TOTAL SCORE Further clinical exam documented under Impression and Plan by systems. ======= ASSESSMENT AND PLAN Ms. Toney Martel ( , 1945) with PMH of HTN, who presented 07/15/2024 with slurred speech, facial droop, R-gaze, and left sided weakness with LSN 2030, Initial NIHSS of 17, noted early acute ischemic changes in R MCA and BIOINFORMATICS TECHNICIAN regions with ASPECTS of 7 with CTA w/ R ICA dissection, acute occlusion in R ICA and distal reconstitution of flow in MCA territory but M2 and P-com occlusion and CTP with 48mm mismatch. OOW for TNK. S/p IAT of supraclinoid right ICA occlusion and right superior division right middle cerebral artery M2 occlusion with TICI3 reperfusion after 3 passes. NEUROLOGIC Acute ischemic cerebral infarction (Location: R ICA dissection and occlusion in R ICA and PComm) on admission Acute R MCA ischemic stroke [facility] (07/15/24) Acute left hemiparesis/plegia Neuro Exam: Awake and alert following commands, speech severe dysarthria, naming intact left neglect L pupil 3, R pupil 3, VFF, left facial droop right gaze pref R 4/5 strength LUE weakly AG LLE weakly AG CTH revealed with no acute hemorrhage, noted early acute ischemic changes in R MCA and BIOINFORMATICS TECHNICIAN regions with ASPECTS of 7 CTA/P H/N w/ R ICA dissection, acute occlusion in R ICA and distal reconstitution of flow in MCA territory but M2 and P-com occlusion and 48mm mismatch. CT CAP with no aortic dissection OOW for TNK 07/15 s/p IAT of supraclinoid right ICA occlusion and right superior division right middle cerebral artery M2 occlusion with TICI3 reperfusion after 3 passes. MRI brain wo acute R MCA/BIOINFORMATICS TECHNICIAN ischemic stroke Stroke work-up ordered Start ASA today A1c 5.51, LDL 100 atorvastatin 80mg at bedtime PT/OT/JAVA SDET ======= CARDIOVASCULAR Essential hypertension (I10) on admission CV Exam: RRR Temp: [36.4 ?C (97.5 ?F)-37.7 ?C (99.8 ?F)] 37.7 ?C (99.8 ?F) Heart Rate: [46-87] 51 Resp: [12-28] 19 BP: (107-203)/(50-79) 126/61 Arterial Line BP 1: (42-185)/(34-60) 135/39 SBP<140 Weaned off Cardene EKG SB with sinus arrythmia TTE ordered Radial honey (07/15-), no CVC ======= PULMONARY Pulm Exam: CTAB On room air with spO2>94% CTA CAP with nonspecific ground glass in b/l lungs ======= GASTROINTESTINAL Dysphagia GI Exam: soft, non-distended, present bowl sounds Nutrition: Current Order: NPO Diet JAVA SDET eval bowel regimen: senna, miralax last BM 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 Lab Results Component Value Date ALT 17 07/16/2024 AST 24 07/16/2024 Alkaline Phosphatase 66 07/16/2024 Bilirubin Total 0.36 07/16/2024 ======= RENAL Hyperkalemia (E87.5) since admission Intake/Output Summary (Last 24 hours) at 07/16/2024 0734 Last data filed at 07/16/2024 0200 Gross per 24 hour Intake 937.09 ml Output 1915 ml Net -977.91 ml Results from last 7 days Lab Units 07/16/24 0023 07/15/24 1058 07/15/24 0927 SODIUM mEq/L 145 -- 144 POTASSIUM mEq/L 4.0 4.4 5.0* CHLORIDE mEq/L 111* -- 109* CO2 mEq/L 23.5 -- 29.2 BUN mg/dL 14 -- 10 CREATININE mg/dL 0.85 -- 0.76 K improved ICU electrolyte protocol Isolyte 75cc mIVF, dc Edwards fr angio; dc ======= INFECTIOUS DISEASE Temp (24hrs), Av.9 ?C (98.4 ?F), Min:36.4 ?C (97.5 ?F), Max:37.7 ?C (99.8 ?F) Results from last 7 days Lab Units 07/16/242207/15/24926 WBC 10*3/uL 6.95 3.56 Monitor trend fever curve and WBC no ABX indicated ======= HEMATOLOGIC Results from last 7 days Lab Units 07/16/242207/15/24926 HEMOGLOBIN g/dL 12.1 12.5 PLATELETS 10*3/uL 231 216 INR -- 1.02 PTT Seconds -- 24.0 Hold antiplt for now DVT ppx: SCDs; sc heparin ======= ENDOCRINE Hypercholesterolemia unspecified (E78.00) on admission Results from last 7 days Lab Units 07/16/24 0025 07/16/24 0023 07/15/24 1943 07/15/24 1450 07/15/24 1058 GLUCOSE mg/dL -- 136* -- -- -- POC GLUCOSE mg/dL 132* -- 123* < > -- HEMOGLOBIN A1C % -- -- -- -- 5.51 CHOLESTEROL mg/dL -- -- -- -- 158 TRIGLYCERIDES mg/dL -- -- -- -- 99 HDL CHOLESTEROL mg/dL -- -- -- -- 38.0 < > = values in this interval not displayed. A1c 5.51 BG goal 80-180 ISS not indicated LDL 100, Atorvastatin 80mg qHS ======= MUSCULOSKELETAL AND INTEGUMENTARY Skin Exam: warm, dry, intact ======= Code Status: No Order Disposition: ICU, pending evals [facility] Neurocritical Care ICU [place] Team ICU Ph #[id number] The patient has an illness or injury that has acutely impaired one or more vital organ systems. There is a high probability of imminent or life threatening deterioration in the patient's condition during this evaluation. This is the total time spent evaluating the patient, speaking with medical staff and family, interpreting studies, discussing the case with consultants and admitting teams, retrieving data and reviewing charts, documenting the visit, and performing bundled procedures required during patient management. TIME (IN MINUTES) SPENT 45 Day MD Day MOLLY - (Bre Pruitt BLENDING TECHNICIAN) Day Total TIME (IN MINUTES) SPENT Night MD Night MOLLY - () Night Total TOTAL OF TIME (IN MINUTES) SPENT The patient was seen and examined by me at a separate time from the MOLLY/Fellow/resident. I also reviewed the documentation and agree with the documented findings and plan of care. Additionally, I was directly involved in the management of the patient and provided the substantive portion of this visit, including examining the patient, obtaining history, and medical decision-making. [facility] Neurology Physician [facility] 2024-07-15 10:49:16 Neurocritical Care Consultation Note Consulted by stroke for medical mgmt of stroke History Of Present Illness Ms. Toney Martel ( , 1945) with PMH of HTN, who presented 07/15/2024 after she woke up this morning at 0815a with slurred speech, facial droop, R-gaze, and left sided weakness with LSN 2030 (07/14/24). Initial NIHSS of 17, BG 90 and SBP 140. CTH no acute hemorrhage, noted early acute ischemic changes in R MCA and BIOINFORMATICS TECHNICIAN regions with ASPECTS of 7. CTA w/ R ICA dissection, acute occlusion in R ICA and distal reconstitution of flow in MCA territory but M2 and P-com occlusion and CTP with 48mm mismatch. OOW for TNK. Pt then taken emergently to angio for mechanical thrombectomy of supraclinoid right ICA occlusion and right superior division right middle cerebral artery M2 occlusion with TICI3 reperfusion after a total of 3 passes. Admitted to Neuro ICU post-thrombectomy for further mgmt. Interval Events: 07/15/24: Admit to Neuro ICU. OOW TNK. S/p IAT of supraclinoid right ICA occlusion and right superior division right middle cerebral artery M2 occlusion with TICI-3 after 3 passes. Past Medical History has a past medical history of Hypertension. Surgical History has no past surgical history on file. Family History No family history on file. Social History Social History Tobacco Use Smoking status: Never Smokeless tobacco: Never Substance Use Topics Alcohol use: Never Drug use: Never Allergies Patient has no allergy information on record. Home Medications (Not in a hospital admission) Review of Systems ROS all negative except those noted in HPI Physical Exam pre-admit mRS: Score 0: No symptoms at all. NIH STROKE SCALE SCORE ON ADMISSION 1a. 1a. LOC Level of Consciousness 0-Alert 1-Drowsy 2-Stupor 3-Coma 1b. LOC Questions (Month and Age) 0-both 1-One 2-Neither 1c. LOC Commands (Open/close eyes, Web Marketing Coordinator/release non-paretic hand) 0-Both 1-One 2-Neither 2 2. Best Gaze 0-Normal 1-Partial 2-Forced gaze 2 3. Visual Conley 0-No visual loss. 1-Partial hemianopia 2-Complete 3-Bilateral 3 4. Facial Palsy 0-None 1-Minor 2-Partial 3-Complete 5. Motor - R arm 0-No drift 1-Drift 2-Some antigravity 3-No antigravity 4-No movement 6. Motor - R leg 0-No drift 1-Drift 2-Some antigravity 3-No antigravity 4-No movement 4 7. Motor - L arm 0-No drift 1-Drift 2-Some antigravity 3-No antigravity 4-No movement 2 8. Motor - L leg 0-No drift 1-Drift 2-Some antigravity 3-No antigravity 4-No movement 9. Limb Ataxia 0-Absent 1-1limb 2-2 limbs 2 10. Sensory 0-Normal 1-Partial loss 2-Dense loss 11. Best Language 0-Normal 1-Mild/mod 2-Severe 3-Mute 2 12. Dysarthria 0-Normal 1-Mild/mod 2-Severe X-Untestable 13. Extinction and Inattention (formerly Neglect) 0-none 1-Partial 2-complete 17 TOTAL SCORE Further clinical exam documented under Impression and Plan by systems. ======= ASSESSMENT AND PLAN Ms. Toney Martel ( , 1945) with PMH of HTN, who presented 07/15/2024 with slurred speech, facial droop, R-gaze, and left sided weakness with LSN 2030, Initial NIHSS of 17, noted early acute ischemic changes in R MCA and BIOINFORMATICS TECHNICIAN regions with ASPECTS of 7 with CTA w/ R ICA dissection, acute occlusion in R ICA and distal reconstitution of flow in MCA territory but M2 and P-com occlusion and CTP with 48mm mismatch. OOW for TNK. S/p IAT of supraclinoid right ICA occlusion and right superior division right middle cerebral artery M2 occlusion with TICI3 reperfusion after 3 passes. NEUROLOGIC Acute ischemic cerebral infarction (Location: R ICA dissection and occlusion in R ICA and PComm) on admission Acute R MCA ischemic stroke OOW for TNK S/p [facility] thrombectomy with TICI-3 (07/15/24) Acute left hemiparesis/plegia Neuro Exam: Awake and alert following commands, speech severe dysarthria, naming intact left neglect L pupil 3, R pupil 3, EOMI, VFF, left facial droop, right gaze pref R full strength LUE extends LLE weakly AG CTH revealed with no acute hemorrhage, noted early acute ischemic changes in R MCA and BIOINFORMATICS TECHNICIAN regions with ASPECTS of 7 CTA/P H/N w/ R ICA dissection, acute occlusion in R ICA and distal reconstitution of flow in MCA territory but M2 and P-com occlusion and 48mm mismatch. CT CAP with no aortic dissection OOW for TNK 1/9 s/p IAT of supraclinoid right ICA occlusion and right superior division right middle cerebral artery M2 occlusion with TICI3 reperfusion after 3 passes. MRI brain wo ordered Stroke work-up ordered Hold antiplt for now A1c 5.51, LDL 100 atorvastatin 80mg at bedtime PT/OT/JAVA SDET ======= CARDIOVASCULAR Essential hypertension (I10) on admission CV Exam: RRR Temp: [36.7 ?C (98.1 ?F)] 36.7 ?C (98.1 ?F) Heart Rate: [66-87] 66 Resp: [18-26] 26 BP: (161-162)/(65-72) 162/65 SBP<140 Wean off Cardene EKG SB with sinus arrythmia TTE ordered Radial honey (07/15-), no CVC ======= PULMONARY Pulm Exam: CTAB On room air with spO2>94% CTA CAP with nonspecific ground glass in b/l lungs ======= GASTROINTESTINAL Dysphagia GI Exam: soft, non-distended, present bowl sounds Nutrition: Current Order: NPO Diet JAVA SDET eval bowel regimen: senna, miralax last BM 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 No results found for: "ALT", "AST", "GGT", "ALKPHOS", "BILITOT" ======= RENAL Hyperkalemia (E87.5) since admission No intake or output data in the 24 hours ending 07/15/24 1049 Results from last 7 days Lab Units 07/15/24 0927 SODIUM mEq/L 144 POTASSIUM mEq/L 5.0* CHLORIDE mEq/L 109* CO2 mEq/L 29.2 BUN mg/dL 10 CREATININE mg/dL 0.76 Rpt BMP 4.4 ICU electrolyte protocol No mIVF Edwards fr angio; dc once off bedrest ======= INFECTIOUS DISEASE Temp (24hrs), Av.7 ?C (98.1 ?F), Min:36.7 ?C (98.1 ?F), Max:36.7 ?C (98.1 ?F) Results from last 7 days Lab Units 07/15/24 0927 WBC 10*3/uL 3.56 Monitor trend fever curve and WBC no ABX indicated ======= HEMATOLOGIC Results from last 7 days Lab Units 07/15/24 0927 HEMOGLOBIN g/dL 12.5 PLATELETS 10*3/uL 216 INR 1.02 PTT Seconds 24.0 Hold antiplt for now DVT ppx: SCDs; sc heparin ======= ENDOCRINE Hypercholesterolemia unspecified (E78.00) on admission Results from last 7 days Lab Units 07/15/24 0927 GLUCOSE mg/dL 93 A1c 5.51 BG goal 80-180 ISS not indicated LDL 100, Atorvastatin 80mg qHS ======= MUSCULOSKELETAL AND INTEGUMENTARY Skin Exam: warm, dry, intact ======= Code Status: No Order Disposition: ICU [facility] Neurocritical Care ICU [place] Team ICU Ph #[phone] The patient has an illness or injury that has acutely impaired one or more vital organ systems. There is a high probability of imminent or life threatening deterioration in the patient's condition during this evaluation. This is the total time spent evaluating the patient, speaking with medical staff and family, interpreting studies, discussing the case with consultants and admitting teams, retrieving data and reviewing charts, documenting the visit, and performing bundled procedures required during patient management. TIME (IN MINUTES) SPENT 45 Day MD 15 Day MOLLY - (Bre Pruitt BLENDING TECHNICIAN) 60 Day Total TIME (IN MINUTES) SPENT Night MD Night MOLLY - () Night Total TOTAL OF TIME (IN MINUTES) SPENT The patient was seen and examined by me at a separate time from the MOLLY/Fellow/resident. I also reviewed the documentation and agree with the documented findings and plan of care. Additionally, I was directly involved in the management of the patient and provided the substantive portion of this visit, including examining the patient, obtaining history, and medical decision-making. [facility] History and Physical Notes Date/Time Note Provider Source 2024-07-23 13:07:14 Physical Medicine & Rehabilitation Physician History & Physical Reason for Admission: CVA (cerebrovascular accident due to intracerebral hemorrhage) ([facility]) [I61.9] Date of Admission: 07/23/2024 12:39 PM Admitting Provider: Salomon Rubio MD History of Present Illness: Toney Martel is a 78Y F PMH of HTN and carpal tunnel syndrome who was admitted on 07/15/24 on for evaluation of wake up L sided plegia, LFD and R gaze deviation. LKW 2030 07/14/24 when patient went to bed, woke up at 0815 with difficulty waking up. Exam w/ NIHSS 17 for L sided weakness, sensory, LFD, L homonymous hemianopia, R gaze. CT w/ ASPECTS 6 (internal cap., insula, M5, M6) and possible hyperdense R MCA. CTA w/ R ICA dissection, acute occlusion in R ICA and distal reconstitution of flow in MCA territory but M2 and P-com occlusion. CTP w/ established M5/M6 region stroke, but 48ml volume in posterior parietal and occipital regions. Patient taken for emergent thrombectomy. within WAKE UP protocol window IAT TICI3. MRI showing R MCA/BIOINFORMATICS TECHNICIAN/SHAWANDA strokes. Failed FEES 07/20, PEG placed 07/22/23. Patient now presents to [facility]. Today, seen supine in bed appearing comfortable. present at bedside. Patient's comprehension intact, she denies any cp, difficulty breathing, GONZALEZ, pain. PEG was placed yesterday, site appears clean. Patient and family looking forward to therapies. 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 Self-Care: Eating Assistance: Substantial/Max assistance Grooming Assistance: Partial/Mod assistance Bathing Assistance: Partial/Mod assistance UE Dressing Assistance: Partial/Mod assistance LE Dressing Assistance: Partial/Mod assistance Bed Mobility: Bed Mobility 1 Level of Assistance 1: Partial/Mod assistance Bed Mobility To/From: Roll lying on back to left, Roll lying on back to right, Supine to sit on EOB PT 07/19 Bed Mobility: Bed Mobility 1: Level of Assistance 1: Substantial/Max assistance Bed Mobility To/From: Supine to sit on EOB Transfers: Transfers 1: Technique 1: Stand step Level of Assistance 1: (mod A) Transfer To/From: Bed, Chair Gait training: Gait Training Time Entry: 1 Gait Training Activity 1: Distance (enter in feet): 2 side steps Assistive Devices And Adaptive Equipments: Walker, front-wheeled Level of Assistance 1: (mod A) Gait Training Activity 1 Comment: difficulty advancing L LE Past Medical History She has a past medical history of Hypertension. Surgical History She has a past surgical history that includes Esophagogastroduodenoscopy (07/22/2024). PEG placed 07/22/24. Social History She reports that she has never smoked. She has never used smokeless tobacco. She reports that she does not drink alcohol and does not use drugs. Allergies Patient has no known allergies. Medications Medications Prior to Admission Medication Sig Dispense Refill Last Dose/Taking [START ON 07/24/2024] aspirin 81 MG chewable tablet 1 tablet by Per G Tube route 1 time each day. atorvastatin (Lipitor) 80 MG tablet 1 tablet by Per G Tube route at bedtime. Review of Systems Constitutional: no fever, no chills Cardiovascular: no chest pain, no edema Respiratory: no dyspnea, no cough Gastrointestinal: no nausea, no vomiting, no diarrhea, no constipation, +PEG Genitourinary: no dysuria, no hematuria Musculoskeletal: LUE weakness, tone flaccid Integumentary: no rashes on limited visual exam Neurological: LUE weakness, no seizures Psychiatric: no depression, no anxiety Physical Exam Constitutional: No acute distress, appearing comfortable. HEENT: NCAT, no scleral icterus, MMM. Cardiovascular: No lower limb edema. Lower limbs warm. Respiratory: Breathing comfortably on room air, no tachypnea. Gastrointestinal: Soft, non-distended abdomen. PEG site c/d/I. Genitourinary: Deferred. No Edwards. Musculoskeletal: Full painless passive range of motion of bilateral upper and lower limbs. Skin: No rashes on limited exam of exposed areas. Psychiatric: Responds appropriately to questions. No anxiety or agitation. Neurologic: Left sided neglect Able to move RUE, BL LE AG. Flaccid tone in LUE. No clonus bilaterally with dorsiflexion Mental status: Level of consciousness: Awake, alert, and appropriately interactive. Orientation: Alert and oriented to person, place, time, and situation. Attention/Concentration: Fair attention to conversation. Speech and language: Speech is fluent, comprehension intact. Dysarthria. Naming intact. Relevant Results Reviewed Assessment & Plan Toney Martel is a 78Y F PMH of HTN and carpal tunnel syndrome who was admitted on 07/15/24 on for evaluation of wake up L sided plegia, LFD and R gaze deviation. CTP w/ established M5/M6 region stroke, but 48ml volume in posterior parietal and occipital regions. Patient taken for emergent thrombectomy. within WAKE UP protocol window IAT TICI3. MRI showing R MCA/BIOINFORMATICS TECHNICIAN/SHAWANDA strokes. Failed FEES 07/20, PEG placed 07/22/23. Patient admitted to [facility] on 07/23/24. # Rehabilitation: Patient will benefit from 3 hours daily of inpatient rehabilitation to help return to prior level of independence. Patient will require physician specializing in physical medicine and rehabilitation to provide oversight of rehabilitation therapies and close medical supervision of rehabilitation specific issues, some of which include: pain management, sleep disturbance, coordination of treatment plan and monitoring for complications. Patient will require physical therapy for a minimum of 1 to 1-1/2 hours daily at least 5 out of 7 days per week to improve functional mobility, balance, strengthening, transfers, range of motion, endurance and gait training. Patient will require occupational therapy for a minimum of 1 to 1-1/2 hours daily at least 5 out of 7 days per week to improve activities of daily living including eating, grooming, bathing, dressing, toileting, toilet transfers, splinting and other activities to be determined. Patient requires speech and language pathology at least 1 hour a day for a minimum of 2 to 3 days per week for cognitive evaluation/deficits. Patient will require 24-hour rehabilitation nursing for pain issues, identifying and preventing risk factors, monitoring and reporting current medical conditions, assisting with ambulation, transfers, and all ADLs, bowel and bladder issues and skin integrity. Patient may require social work supervisor and/or case management for discharge planning and arranging home equipment or services. Patient will require dietary and nutrition services for adequate nutrition and nutritional supplements. Acute ischemic right MCA stroke (HCC) - Suspected Etiology: Large artery atherosclerosis - CT: ASPECTS 6, hyperdense MCA - CTA: acute occlusion in R ICA and distal reconstitution of flow in MCA territory but M2 and P-com occlusion. - CTP: established M5/M6 region stroke, but 48ml volume in posterior parietal and occipital regions. - MRI brain w/o contrast R MCA/BIOINFORMATICS TECHNICIAN infarct - TTE- EF: 60-65%, atrium normal - Atorvastatin 80 mg daily - ASA 81 mg daily - monitor neurological status Impaired mobility and ADLs Left hemiparesis - PT/OT following for strengthening, increased independence with mobility and ADLs, bowel and bladder management, DME evaluation, family training, improvement in balance deficits, improvement in endurance/exercise tolerance Cognitive communication deficits Dysarthria - Continue therapies with JAVA SDET for evaluation of language impairments and cognition - Neuropsychology consultation if/when appropriate for evaluation of cognition and mood Dysphagia - NPO, continue bolus Tfs and enteral FWF - Continue therapies w/ JAVA SDET. 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 Straight cath if PVR > 200cc. Pain - Continue Tylenol as needed for nociceptive pain Skin - Recommend thorough skin evaluation as patient is at risk for pressure injuries. - If patient is unable to reliably change position independently, recommend every 4-6 hours turns to prevent skin breakdown, daily skin checks. Chronic medical co-morbidities: HTN: BP control, BP <140 HLD: statin Prophylaxis - DVT: SQH Disposition - Prognosis: Fair to good - Location: Home with family - Estimated length of stay: 2-3 weeks - Goals for admission: strengthening, increased independence with mobility and ADLs, bowel and bladder management, pain management, DME evaluation, family training, improvement in balance deficits, improvement in endurance/exercise tolerance, improvement in cognitive/communication deficits Follow-Ups Please follow up with [place] [facility] within 1 [place], [place] [facility] within 3 months for PEG tube, and PCP within 1-2 weeks. Patient seen and discussed with Dr. Rubio. Kwabena Metzger MD PM&R PGY3 Cosigned by Salomon Rubio DO at 07/23/2024 4:23 PM MEDICAL RECEPTIONIST CAL RECEPTIONIST CAL RECEPTIONIST Associated attestation - Salomon Rubio DO - 07/23/2024 4:23 PM MEDICAL RECEPTIONIST I saw and evaluated the patient with the resident, participating in the kiran portions of the service. I reviewed the resident's note and agree with the documented findings and plan of care. PM&R ATTENDING ATTESTATION Post-Admission Physician Evaluation I saw, examined and discussed the patient with the resident Doctor and agree with the above documentation. The patient presents for inpatient rehabilitation. There are no medical or functional changes since the preadmission assessment. The patient has ongoing medical and functional impairments that can safely be met in the IRF setting, and these needs cannot be adequately addressed in a lower level of care, as the patient requires 24hr nursing and daily medical management. The patient also has comorbidities which necessitate close medical supervision, specialized rehabilitation nursing, and skilled therapy intervention. The patient is able to participate in and benefit from an acute inpatient rehabilitation program, with anticipated measurable gains as a result of this program. Prior, the patient was independent with all ADLs and mobility. Currently, the patient requires assistance for both ADLs and mobility. There are no obvious barriers to disposition to the community following the IRF admission. Individualized Plan of Care: Patient will require oversight by a rehabilitation physician and 24 hour rehabilitation nursing for management of bowel, bladder, skin integrity, medication management, safety measures, and preventing risk factors and complications. Patient will require a minimum of 3 hours of therapy a day for 5-7 days a week throughout the hospitalization, including at least the followin-2 hours Physical Therapy, 1-2 hours Occupational Therapy and 1 hour Speech-Language pathology, Neuropsychology, Exercise and Multidisciplinary Groups. These disciplines will be needed in order to improve the patient s impairments in mobility, transfers, activities of daily living, swallowing and cognition and evaluation of durable medical equipment if needed at discharge. Social Work and Case Management will be consulted to assist with discharge planning and family coping strategies. Prognosis: fair/good Estimated Length of Stay: 2 weeks Discharge Disposition: home with spouse Salomon Rubio DO Physical Medicine & Rehabilitation [facility] 2024-07-15 09:23:49 Stroke History and Physical Name: Yong Chowdary Date: 07/15/2024 Service: Stroke Attending: Dr. Yang Subjective: History of Present Illness: Toney Martel ( ) with PMH of HTN and carpal tunnel syndrome who presents for evaluation of wake up L sided plegia, LFD and R gaze deviation. Patient went to bed LKW at 2030 on 07/14/24 with no deficits and no concerns. Woke up at 0815 and was not able to stand from bed and was concerned something may be wrong; son notified EMS. On EMS arrival, c/f L sided weakness, LFD, R gaze deviation. Patient brought in immediately d/t c/f stroke. Patient has never had such symptoms before, never had strokes or seizures in the past, only has HTN for which she takes a medication (do not have the name at this time). 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 Review of Systems (normal if not indicated by "+"): GEN: weight loss, acute distress, fever, fatigue, or weakness. HEENT: eye redness, loss of vision, blurry vision, flashing spots; no ear ringing, loss of smell, sinusitis, oral sores, loss of taste, or difficulty swallowing. CVS: chest pain, palpitations or shortness of breath. PUL: dyspnea, cough, or orthopnea. GI: abdominal pain, constipation, nausea, diarrhea or vomiting. Psych: depression, anxiety, no homicidal or suicidal ideation. Skin: rashes or edema. Hematology: bleeding or clotting tendency. : urinary frequency, urgency, or dysuria. Neuro: headache, dizziness, LOC, memory loss, muscle spasm or +sensory deficits. +weakness, +gaze deviation +visual field cut Past Medical History: Past Medical History: Diagnosis Date Hypertension Past Surgical History: History reviewed. No pertinent surgical history. Family History: No family history on file. Social History: Social History Socioeconomic History Marital status: Spouse name: Not on file Number of children: Not on file Years of education: Not on file Highest education level: Not on file Occupational History Not on file Tobacco Use Smoking status: Never Smokeless tobacco: Never Substance and Sexual Activity Alcohol use: Never Drug use: Never Sexual activity: Not Currently Other Topics Concern Not on file Social History Narrative Not on file Social Drivers of Health Financial Resource Strain: Not on file Food Insecurity: Not on file Transportation Needs: Not on file Physical Activity: Not on file Stress: Not on file Social Connections: Not on file Intimate Partner Violence: Not on file Housing Stability: Not on file Medications: (Not in a hospital admission) Objective: Physical Examination: Vitals: 07/15/24 0929 07/15/24 1016 BP: (!) 161/72 (!) 162/65 Pulse: 87 66 Resp: 18 (!) 26 Temp: 36.7 ?C (98.1 ?F) 36.4 ?C (97.6 ?F) SpO2: 98% 98% General: Alert, no major discomfort CV: Regular rate and rhythm, no additional heart sounds or murmurs. Lungs: Clear to A&P. No rales, rhonchi, wheezes or rubs. Abd: Soft, non-tender, no guarding, no organomegaly, regular bowel sounds. Extremities: No peripheral edema, well perfused, no lesions. Neuro: Mental Status: Awake and alert; comprehension intact and following all commands. Oriented to self, place, time. Language/Speech: Comprehension, fluency, naming and repetition all intact. Severe dysarthria. CN: II: Pupils equal and symmetric light response, L homonymous hemianopia III/IV/: R gaze deviation V: L sensory deficit VII: Complete L facial palsy VIII: No nystagmus or hearing deficits IX/X/XII: Symmetric uvula/palate and tongue Motor: L arm plegic, L leg antigravity, normal tone Sensory: L dense hemisensory deficit Coordination: Not assessed in plegic arm MRS: 0- Completely asymptomatic and independent NIHSS: 1a. Level of Consciousness; 0-alert 1-drowsy 2-stupor 3-coma 1b. LOC Questions month and age; 0-both 1-one 2-neither 1c. LOC Commands open/close eyes, corporate staff accountant/release non-paretic hand; 0-both 1-one 2-neither 2 2. Best Gaze; 0-nl 1-partial 2-forced gaze 2 3. Visual Conley; 0-No visual loss. 1-Partial hemianopia 2-Complete 3-Bilateral 3 4. Facial Palsy; 0-none 1-minor 2-partial 3-complete 5. Motor - R arm; 0-No drift 1-Drift 2-Some antigravity 3-No antigravity 4-No movement 4 6. Motor - L arm; 0-No drift 1-Drift 2-Some antigravity 3-No antigravity 4-No movement 7. Motor - R leg; 0-No drift 1-Drift 2-Some antigravity 3-No antigravity 4-No movement 2 8. Motor - L leg; 0-No drift 1-Drift 2-Some antigravity 3-No antigravity 4-No movement 9. Limb Ataxia; 0 absent 1 - 1limb 2 - 2 limbs 2 10. Sensory; 0-nl 1-partial loss 2-dense loss 11. Best Language; 0-nl 1-mild/mod 2-severe 3-mute 2 12. Dysarthria; 0-nl 1-mild/mod 2-severe x-untestable X 13. Extinction and Inattention (formerly Neglect); 0-none 1-partial 2-complete 17 Total Items left blank are understood to score 0 Diagnostic Data: Pertinent Labs: Lab Results Component Value Date WBC 3.56 07/15/2024 Hgb 12.5 07/15/2024 Hct 39.8 07/15/2024 Plt Count 216 07/15/2024 Lab Results Component Value Date Sodium Lvl 144 07/15/2024 Potassium Lvl 5.0 (H) 07/15/2024 Chloride Lvl 109 (H) 07/15/2024 CO2 Lvl 29.2 07/15/2024 BUN 10 07/15/2024 Creatinine Lvl 0.76 07/15/2024 Glucose Lvl 93 07/15/2024 Lab Results Component Value Date Calcium Lvl 8.1 (L) 07/15/2024 No results found for: "AST", "ALT", "ALKPHOS" Lab Results Component Value Date PTT 24.0 07/15/2024 Prothrombin Time (PT) 13.6 07/15/2024 INR 1.02 07/15/2024 Imaging: No CT head results found for the past 14 days No MRI head results found for the past 14 days No EEG results found for the past 14 days Assessment: Toney Martel ( ) with PMH of HTN and carpal tunnel syndrome who presents for evaluation of wake up L sided plegia, LFD and R gaze deviation. LKW 2029 when patient went to bed, woke up at 0815 with difficulty waking up. Exam w/ NIHSS 17 for L sided weakness, sensory, LFD, L homonymous hemianopia, R gaze. CT w/ ASPECTS 6 (internal cap., insula, M5, M6) and possible hyperdense R MCA. CTA w/ R ICA dissection, acute occlusion in R ICA and distal reconstitution of flow in MCA territory but M2 and P-com occlusion. CTP w/ established M5/M6 region stroke, but 48ml volume in posterior parietal and occipital regions. Given presentation within 4.5hrs after waking up and <7 hours from sleep midpoint, acute R ICA thrombus and multiple intracranial occlusions, patient taken for emergent thrombectomy.within WAKE UP protocol window after discussion with family about possible risk of hem. Conversion. Plan to admit to NSICU for further stroke workup thereafter. Plan: NUB CARD TENDER Ischemic Stroke Acuity: Acute Suspected Etiology: To be determined but likely ESUS ICH Score and volume on Admission: - CT: ASPECTS 6, hyperdense MCA - CTA: R ICA dissection, acute occlusion in R ICA and distal reconstitution of flow in MCA territory but M2 and P-com occlusion. - CTP: established M5/M6 region stroke, but 48ml volume in posterior parietal and occipital regions. PLAN: - Admit to Neuro ICU (7 Sher) - No APT for now pending further eval. Post thrombectomy - Start Atorvastatin 80 mg daily - Ordered MRI brain w/o contrast - Ordered TTE - Ordered Labs: A1c, lipid panel - Blood pressure control: Post-thrombectomy/IAT reperfusion SBP <140 - Ordered PT/OT/ST RESP - Breathing comfortably on RA CV Essential hypertension - Home regimen: Unclear what medication patient takes PLAN: - BP control, Post-thrombectomy/IAT reperfusion SBP <140 - Holding home medications; add as needed RENAL - No acute concerns ENDO - No acute concerns HEMATOLOGY - No acute concerns INFECTIOUS DISEASES - No acute concerns PROPHYLAXIS DVT: subcutaneous heparin GI: Famotidine Bowel regimen: MiraLAX Diet: NPO Code status: Full Code Disposition: Pending further evaluation Discussed with Fellow Dr. Benson and Attending Dr. Néstor Magallanes MD Resident Physician Neurology [facility] | [facility] Acute Stroke Benchmarks: Time Patient Last Seen Normal 07/14/2024; [address] [x]Yes []No Time of Stroke Team Evaluation 07/15/2024; 913 CT Head Read Time 07/15/2024; 924 TNK time (time and dose) NA TNK in the CT scanner []Yes [x]No If not a candidate for IV TNK, why? []Stroke with non-disabling symptoms (too mild) []Patient/Family refused []Care team unable to determine eligibility Specify Eligibility Reason: []Further diagnostic evaluation to confirm stroke for patients with hypoglycemia, seizure, or metabolic disorders []Management of concomitant emergent/acute conditions such as cardiopulmonary arrest, respiratory failure (requiring intubation) []Active Internal bleeding []Acute bleeding diathesis (low platelet count, increased PTT< INR>=1.7 or use of NOAC) []Symptoms suggest of SAH []Life expectancy <1year or severe co-morbid condition, LANDSCAPE PHOTOGRAPHER on admission [] [x]CT findings (multi lobar infarction (hypodensity >1/3 cerebral hemisphere) []Recent acute UT (previous 3 months) []Seizure at onset with postictal residual neurological impairments[]Major surgery or serious trauma within previous 14 days []Recent GI or urinary tract hemorrhage (within previous 21 days) []Others: Delays in the Process [x]None []Initial Patient/Family refusal []Hypertension requiring aggressive BP Control []Unable to Determine Eligibility (unclear onset time, timing of recent procedure, lack of accurate history about preexisting medical condition, etc) []Further Diagnostic evaluation to confirm stroke for patients with hypoglycemia []Management of concomitant emergent/acute condition (CPR or intubation) []Other: LVO Patient (yes/no) [x]Yes (please refer to IAT benchmark template) []No Reasons for not performing AALIYAH Therapy []Significant pre-stroke disability []No evidence of proximal occlusion []NIHSS<6 []Brain imaging not favorable/hemorrhagic transformation (ASPECTS score <6) []Anatomical reason- unfavorable vascular anatomy that limits access to the occluded artery []Patient/Family refusal []Allergy to contrast material []Other: IAT Template Last Seen Well Time (LSN): Time to be given by patient or family. Time the stroke was witnessed 07/14/2024; 2029 TNK Bolus Time: NA Team at Bedside Time: 07/15/2024; 913 IA Notification Time: First time Stroke Team called Endo Physician 07/15/[id number] CLOT Pager Notification Time: Time Endo agreed to proceed 07/15/2024; 10:30 What cerebral artery is occluded? []Anterior cerebral artery (SHAWANDA) []A1 SHAWANDA []Anterior communicating artery [x]Internal carotid artery (ICA) []ICA terminus (T-lesion; T occlusion) []Middle cerebral artery (MCA) []M1 MCA [x]M2 MCA []M3/M4 MCA []Vertebral artery (VA) []Basilar artery (BA) []Posterior cerebral artery (BIOINFORMATICS TECHNICIAN) []Other cerebral artery branch/segment Groin Puncture Time: Recanalization Time: Number of Passes: TICI Score: []Grade 0 []Grade 1 []Grade 2a []Grade 2b []Grade 3 []ND Device used: []Trevo []Solitaire []Other: ___ Delays in Process: []Initial Patient/Family Refusal []Care team unable to determine eligibility []Management of concurrent emergent/acute condition such as cardiopulmonary arrest, respiratory failure (requiring intubation) []Additional proximal vascular procedure required prior to first pass (stent) [x]Other: Awaited son to discuss I performed [id number] diagnostic evaluation of this patient. I have reviewed the contents of the history and physical/consult note by the resident/fellow and agree with the above assessment and plan, and have performed edits as needed. I have reviewed relevant social/family/medication history and ROS. I have performed the MDM for this encounter. 78-year-old female with past medical history of hypertension woke up in the morning around 8:15 AM with slurred speech, left-sided weakness. Last seen normal was when she went to bed at 8:30 PM. Initial NIH stroke 17, CT head with changes in the right MCA, aspect 7. CTA with right ICA pseudo occlusion ( initially read at dissection), with a right M2 and right P-comm thrombus ( BIOINFORMATICS TECHNICIAN). After extensive discussion with family patient underwent emergent thrombectomy with TICI 3 reperfusion. On examination post procedure, stable. NIHSS 15. Etiology of stroke-likely large vessel atherosclerosis -Plan repeat CT or MRI brain -BP goal 120 -140 systolic -Okay for aspirin -Frequent neurochecks -TTE, lipid profile, A1c -PT OT speech Appreciate neuro ICU team assistance in the management of this patient. The patient is neurologically critically ill due to acute ischemic stroke 2/2 R ICA occlusion with R m2 and R PCOM thombus s/p MT. The patient has high risk for neurological deterioration and high risk of morbidity and mortality. Time spent: 40 min This includes time spent on bedside evaluation, imaging review, discussion with specialists and family/patient. Time spent does not include time teaching or spent by resident/fellow. Lindy Yang Vascular Neurology/Neurohospitalist, [facility] Semiconductor Processor, [facility] Lindy Yang Vascular Neurology/Neurohospitalist, [facility] [employer]ductor [employer]or, [facility] CAL RECEPTIONIST CAL RECEPTIONIST CAL RECEPTIONIST CAL RECEPTIONIST Neurology Physician [facility] Procedure Notes Date/Time Note Provider Source 2024-07-20 16:23:13 Associated Order(s): JAVA SDET FEES PROCEDURE Images from the original note were not included. [facility] JAVA SDET FIBEROPTIC ENDOSCOPIC EVALUATION OF SWALLOWING (FEES) Patient Name: Toney Martel Today's Date: 07/20/2024 Room: [address] FEES EVALUATION SUMMARY: RECOMMENDATIONS: Diet Recommendations: NPO with alternate means of nutrition Consider group home nutrition Medications: Non oral Oral care: Suction toothbrush , Every 2 hours JAVA SDET will follow up with dysphagia management and repeat instrumental as indicated. PROGNOSIS: Good PLAN: Treatment/Interventions: Instrumental Assessments Frequency: 1-2 times per week GENERAL INFORMATION: Reason for Consult: Pt was referred for a FEES evaluation in the setting of oropharyngeal dysphagia. Oxygenation: Room air Behavior:Cooperative Level of Consciousness: Awake & alert Pain: Pain Assessment: DVPRS Pain Score: 0 Diet Prior to this Evaluation: Temporary Means of Alternative Nutrition & Hydration and NPO Preferred Language: Guamanian PRE-ASSESSMENT: JAVA SDET Pre-Assessment Current Method of Nutrition: Dobhoff Tube FEES PROCEDURE: The Patient/family were educated re: the purpose of the test and the procedure. The Patient/family were given the chance to ask questions re: the procedure and provided verbal assent. The [facility] Swallow[facility] Station was utilized at this evaluation. Pt completed instrumental assessment of the swallow while seated upright in chair. Time out was performed, and the flexible endoscope was passed through the right naris, through the velopharyngeal port, and into the oropharynx where visualization of the hypopharynx was obtained. Laryngeal anatomy was significant for standing secretions in pyriform sinus and lateral channels. Patient was presented with po trials of thin liquid via tsp/straw, nectar thick liquid via straw, and puree mixed with food grade green dye for contrast. The oral phase was c/b bolus acceptance, anterior loss, bolus holding, decreased bolus formation with oral residue, prolonged oral transit, and posterior loss. The pharyngeal phase was c/b suspected decreased pharyngeal constriction, epiglottic inversion, and laryngeal closure. Aspiration [PAS 6] was indicated with thin liquids, aspiration [PAS 6] was indicated with nectar thick liquids, and silent aspiration [PAS 8] was indicated with puree. A cued cough was ineffective to clear airway invasion. Patient with severe oropharyngeal dysphagia. Swallow safety and efficiency are impaired. Non-oral nutrition/hydration is indicated at this time. EXAMINATION METHOD: Examination Method Previous MBS or FEES: Yes Time out protocol completed: Yes Respiratory Status: Room air Foreign Body Obstruction: DHT ANATOMICAL OVERVIEW Anatomical Overview Views of The Larynx and Vocal Folds Included: Within Functional Limits Secretions: 2-Standing secretions in laryngeal vestibule transently over the rating period, spill in during the observation period or cleared by the patient during the observation period Velopharyngeal Closure: Within Functional Limits Epiglottis: Within Functional Limits Valleculae: Within Functional Limits Arytenoids: Within Functional Limits Posterior Pharyngeal Wall: Narrowed pharynx True Vocal Cords at Rest: Within Functional Limits True Vocal Cords During Voicing: Mal-Movement Bilateral FEES BOLUS: Bolus 1: Bolus 1 Texture: 0 Thin Method of Feeding: Spoon, Straw Oral Phase Observations: Posterior loss Swallow Initiated: Pyriform sinus Franklin-Valleculae Residue: III-Mild 5-25% Epiglottic Ligament Visible Rosario-Pyriform Sinus Residue: III- Mild 5-25% Up Wall to Quarter Full Penetration-Aspiration Scale: 6: Material enters the airway, passes below the vocal folds, and is ejected into the larynx or out of the airway. Timing of Airway Invasion: During the swallow (inferred) Response to Airway Invasion: Productive spontaneous cough Bolus 2: Bolus 2 Texture: 2 Mildly Thick Method of Feeding: Straw Oral Phase Observations: Posterior loss Swallow Initiated: Pyriform sinus Franklin-Valleculae Residue: III-Mild 5-25% Epiglottic Ligament Visible Rosario-Pyriform Sinus Residue: III- Mild 5-25% Up Wall to Quarter Full Penetration-Aspiration Scale: 7: Material enters the airway, passes below the vocal folds, and is not ejected from the trachea despite effort. Timing of Airway Invasion: During the swallow (inferred) Response to Airway Invasion: Productive spontaneous cough Bolus 3: Bolus 3 Texture: 4 Pureed Method of Feeding: Spoon Oral Phase Observations: Posterior loss Swallow Initiated: Lateral channels Franklin-Valleculae Residue: IV-Moderate 25-50% Epiglottic Ligament Covered Rosario-Pyriform Sinus Residue: III- Mild 5-25% Up Wall to Quarter Full Penetration-Aspiration Scale: 8: Material enters the airway, passes below the vocal folds, and no effort is made to eject. Timing of Airway Invasion: During the swallow (inferred) Response to Airway Invasion: Absent response OUTCOME MEASURES: International Dysphagia Diet Standardization Initiative - IDDSI Solids - N/A Liquids - N/A IDDSI Level - 0 FUNCTIONAL ORAL INTAKE SCALE (FOIS), GIULIANO ET AL., 2005: 1- Nothing by mouth DYSPHAGIA OUTCOME AND SEVERITY SCALE (PORTIA), O'LEAH ET AL., 1999: 1 = Severe dysphagia: NPO, unable to tolerate any PO safely. May exhibit one or more of of the following: -Severe retention in the pharynx, unable to clear. -Severe oral stage bolus loss or retention, unable to clear. -Silent aspiration with two or more consistencies, nonfunctional volitional cough. --Or unable to achieve swallow. GOALS: Encounter Goals Encounter Goals (Active) Pt will perform LB dressing with mod A. Start: 07/19/24 Expected End: 08/02/24 LTG - Patient will improve on swallowing outcome measure Start: 07/16/24 Expected End: 08/06/24 STG - Participate in an instrumental swallow study Start: 07/16/24 Expected End: 08/06/24 STG - Improve airway protection Start: 07/20/24 Expected End: 08/05/24 EDUCATION: Education Documentation Speech-Language/Pathology Treatment Plan, taught by ELEUTERIO Dejesus at 07/20/2024 4:11 PM. Learner: Family, Patient Readiness: Eager Method: Explanation Response: Verbalizes Understanding Results of Exam, taught by ELEUTERIO Dejesus at 07/20/2024 4:11 PM. Learner: Family, Patient Readiness: Eager Method: Explanation Response: Verbalizes Understanding Education Comments No comments found. If this is the last documented treatment, then it will signify discharge from acute care prior to discharge from the therapy service and will serve as the discharge summary. Therapy discharge recommendations are made by determining the patient's prior level of function, assessing current function level and establishing rehab potential. The overall discharge plan may be affected by input from Physicians, Care Coordination, medical condition/status, family support and insurance benefits. ELEUTERIO Dejesus [facility] 2024-07-17 13:11:27 Images from the original note were not included. [facility] JAVA SDET FIBEROPTIC ENDOSCOPIC EVALUATION OF SWALLOWING (FEES) Patient Name: Toney Martel Today's Date: 07/17/2024 [facility] DI[facility] RECOMMENDATIONS: NPO with need for continued alternate means of nutrition/hydration/medicat ion. FEES EVALUATION SUMMARY: IMPRESSIONS: SWALLOWING: Mrs. Martel was seen seated in bed with family present. Nurse reported patient is stable and cooperative. The patient was explained the procedure, expressed understanding and consent was obtained. Time out protocol was in place. The endoscope was placed in the right nare and moved transnasally to the level above the laryngeal vestibule for optimum visualization. Anatomical observation revealed standing secretions throughout laryngeal vestibule and being aspirated in and out at the posterior commissure. She was given thin liquid-water, mildly (nectar) thickened liquid-water, and pureed-applesauce consistency trials all mixed with green food grade food coloring for contrast. Mrs. Martel is observed with Oropharyngeal Dysphagia, c/b consistent loss of bolus control with premature spillage, delay in swallow initiation, decreased laryngeal closure/epiglottic inversion and multiple swallow. Due to exam findings the patient is deemed unsafe for PO intake at this time. Recommend, NPO with need for continued alternate means of nutrition/hydration/medicat ion. RECOMMENDATIONS: Oral Care Dysphagia tx Swallow reassessment Repeat Instrumental assessment Aspiration Precautions Complete full Speech/Language/Cognitive evaluation Education/training for patient/family/caregiver PROGNOSIS: Fair PLAN: Treatment/Interventions: Swallow function Frequency: 1-2 times per week GENERAL INFORMATION: Reason for Consult: Pt was referred for a FEES evaluation Oxygenation: room air Behavior:Cooperative Level of Consciousness: Lethargic Pain: Pain Assessment: DVPRS Diet Prior to this Evaluation: NPO Preferred Language: Guamanian PRE-ASSESSMENT: JAVA SDET Pre-Assessment Current Method of Nutrition: Dobhoff Tube FEES PROCEDURE: The Patient/family were educated re: the purpose of the test and the procedure. The Patient/family were given the chance to ask questions re: the procedure and provided verbal assent. The [facility] was utilized at this evaluation. Pt completed instrumental assessment of the swallow while seated upright in bed. Time out was performed, and the flexible endoscope was passed through the right naris, through the velopharyngeal port, and into the oropharynx where visualization of the hypopharynx was obtained. Laryngeal anatomy was observed with significant standing secretions. EXAMINATION METHOD: Examination Method Previous MBS or FEES: No Time out protocol completed: Yes Respiratory Status: Room air Foreign Body Obstruction: DHT ANATOMICAL OVERVIEW Anatomical Overview Views of The Larynx and Vocal Folds Included: Within Functional Limits Secretions: 3-Standing secretions in laryngeal vestibule throughout the rating period may be aspirated, are not cleared from the vestibule Velopharyngeal Closure: Within Functional Limits Epiglottis: Within Functional Limits Valleculae: Within Functional Limits Arytenoids: Within Functional Limits Posterior Pharyngeal Wall: Narrowed pharynx True Vocal Cords at Rest: Within Functional Limits True Vocal Cords During Voicing: Mal-Movement Bilateral FEES BOLUS: Bolus 1: Bolus 1 Texture: 0 Thin Method of Feeding: Spoon Oral Phase Observations: Posterior loss Swallow Initiated: Pyriform sinus Rosario-Valleculae Residue: IV-Moderate 25-50% Epiglottic Ligament Covered Franklin-Pyriform Sinus Residue: V- Severe >50% Filled to Aryepiglottic Fold Penetration-Aspiration Scale: 8: Material enters the airway, passes below the vocal folds, and no effort is made to eject. Timing of Airway Invasion: Before the swallow, During the swallow (inferred), After the swallow Response to Airway Invasion: No cough, Absent response Bolus 2: Bolus 2 Texture: 2 Mildly Thick Method of Feeding: Spoon Oral Phase Observations: Posterior loss Swallow Initiated: Pyriform sinus Franklin-Valleculae Residue: IV-Moderate 25-50% Epiglottic Ligament Covered Rosario-Pyriform Sinus Residue: V- Severe >50% Filled to Aryepiglottic Fold Penetration-Aspiration Scale: 8: Material enters the airway, passes below the vocal folds, and no effort is made to eject. Timing of Airway Invasion: Before the swallow, During the swallow (inferred), After the swallow Bolus 3: Bolus 3 Texture: 4 Pureed Method of Feeding: Spoon Oral Phase Observations: Posterior loss Swallow Initiated: Lateral channels Franklin-Valleculae Residue: IV-Moderate 25-50% Epiglottic Ligament Covered Franklin-Pyriform Sinus Residue: V- Severe >50% Filled to Aryepiglottic Fold Penetration-Aspiration Scale: 8: Material enters the airway, passes below the vocal folds, and no effort is made to eject. Timing of Airway Invasion: Before the swallow, During the swallow (inferred), After the swallow OUTCOME MEASURES: International Dysphagia Diet Standardization Initiative - IDDSI Solids - N/A Liquids - N/A IDDSI Level - 0 FUNCTIONAL ORAL INTAKE SCALE (FOIS), GIULIANO ET AL., 2005: 1- Nothing by mouth DYSPHAGIA OUTCOME AND SEVERITY SCALE (PORTIA), O'LEAH ET AL., 1999: 1 = Severe dysphagia: NPO, unable to tolerate any PO safely. May exhibit one or more of of the following: -Severe retention in the pharynx, unable to clear. -Severe oral stage bolus loss or retention, unable to clear. -Silent aspiration with two or more consistencies, nonfunctional volitional cough. --Or unable to achieve swallow. GOALS: Encounter Goals Encounter Goals (Active) LTG - Patient will improve on swallowing outcome measure Start: 07/16/24 Expected End: 08/06/24 STG - Participate in an instrumental swallow study Start: 07/16/24 Expected End: 08/06/24 EDUCATION: Education Documentation No documentation found. Education Comments No comments found. If this is the last documented treatment, then it will signify discharge from acute care prior to discharge from the therapy service and will serve as the discharge summary. Therapy discharge recommendations are made by determining the patient's prior level of function, assessing current function level and establishing rehab potential. The overall discharge plan may be affected by input from Physicians, Care Coordination, medical condition/status, family support and insurance benefits. Clau Varela CCC-[facility] Speech Pathology Speech and Language Pathologist [facility] 2024-07-15 12:57:24 Interventional Radiology Brief Postprocedure Note Procedure: IR angiogram cerebral bilateral Preprocedure Diagnosis: Stroke, acute, thrombotic (HCC) (I63.9) Postprocedure Diagnosis: no change Staff: Staff Role Linda Juarez Chemical Production Engineer Yemi Aquino MD Anesthesiologist Alec Rincon Chemical Production Engineer Bre Bui MD Photographic Equipment Assembler Molly Matias, house rn Nurse Janes Alicia MD Attending Surgeon Vickie Cotto RN Radiology Nurse Keegan Estrada MD Fellow Description of procedure: Diagnostic cerebral angiogram bilateral internal carotid arteries, mechanical thrombectomy right internal carotid artery and right middle cerebral artery Estimated Blood Loss: 50 mL Medications See anesthesia records. 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 TICI3 reperfusion after a total of three strentriever passes mechanical thrombectomy. Plan: SBP 90-140, admit to neuro ICU Complications: None Anesthesia: Anesthesia See detailed result report with images in PACS. The patient tolerated the procedure well without incident or complication and is in stable condition. Sage Campos MD, PhD PGY7 Neuroendovascular Surgery Fellow CAL RECEPTIONIST Neurosurgery [facility] Notes Date/Time Note Provider Source Referral ID Status Reason Start Date Expiration Date V isits Requested Visits Authorized [id number] Pending Review 09/02/2024 03/01/2025 1 1 CAL RECEPTIONIST [id number] 16:01:03* [facility]Qjcjbti9200-42-17 16:01:03 [id number] 16:01:03* Xiomara Sanches MD - 09/02/2024 11:45 AM MEDICAL RECEPTIONIST History of Present Illness HPI Had a stroke in July. NIHSS 17. 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 Did inpatient therapy and then went home and has been getting home health and is actually scheduled for another 10-20 days of inpatient therapy here locally. Here for reevaluation. Lives with her Allergies as of 09/02/2024 (No Known Allergies) has a current medication list which includes the following prescription(s): aspirin, atorvastatin, and gabapentin. Vitals:09/02/24 1147 BP: 128/73 Pulse: 76 Resp: 16 Temp: 36.6 ?C (97.9 ?F) SpO2: 97% Neurological Exam Mental Status Awake and alert. Speech is normal. Cranial NervesCN II: Visual acuity is normal. Left homonymous hemianopsia. CN III, IV, : Extraocular movements intact bilaterally. Pupils equal round and reactive to light bilaterally. CN VII: Full and symmetric facial movement. CN XII: Tongue midline without atrophy or fasciculations. MotorLeft hemiparesis. 4/5. SensoryLeft hemisensory loss. ReflexesDeep tendon reflexes: Symmetric. Gait In a wheelchair although she can ambulate with a walker. Results for orders placed or performed during the hospital encounter of 07/23/24 POC Glucose Collection Time: 07/25/24 8:21 AM Result Value Ref Range POC Glu 101 (H) 70 - 99 mg/dL POC Performing Location [id number] Comprehensive Metabolic Panel Collection Time: 07/26/24 5:59 AM Result Value Ref Range Sodium Lvl 142 136 - 145 mEq/L Potassium Lvl 4.3 3.4 - 4.5 mEq/L Chloride Lvl 106 98 - 107 mEq/L CO2 Lvl 24.6 20.0 - 31.0 mEq/L Anion Gap 15.7 10.0 - 20.0 mEq/L Glucose Lvl 108 (H) 70 - 99 mg/dL Creatinine Lvl 0.51 (L) 0.55 - 1.02 mg/dL BUN 13 9 - 23 mg/dL B/C Ratio 25 6 - 25 Protein 6.5 5.7 - 8.2 g/dL Albumin Lvl 2.8 (L) 3.4 - 5.0 g/dL Globulin, Calc 3.7 2.0 - 4.0 g/dL Albumin/Globulin Ratio 0.76 0.7 - 1.6 Calcium Lvl 8.4 8.3 - 10.6 mg/dL ALT 18 7 - 40 U/L AST 26 12 - 40 U/L Alkaline Phosphatase 77 46 - 116 U/L Bilirubin Total 0.22 0.20 - 1.10 mg/dL eGFR 95 >60 mL/min/1.73m2 Phosphorus Level Collection Time: 07/26/24 5:59 AM Result Value Ref Range Phosphorus Lvl 3.3 2.4 - 5.1 mg/dL Magnesium Level Collection Time: 07/26/24 5:59 AM Result Value Ref Range Magnesium 1.97 1.6 - 2.60 mg/dL Complete Blood Count Collection Time: 07/26/24 5:59 AM Result Value Ref Range WBC 5.26 4.15 - 10.55 10*3/uL RBC 3.92 3.74 - 5.22 10*6/uL NRBC % 0.0 0 /100 WBC Hgb 10.9 10.8 - 14.8 g/dL Hct 34.7 33.9 - 45.4 % MCV 88.5 77.8 - 97.5 fL MCH 27.8 24.9 - 32.6 pg MCHC 31.4 30.1 - 35.0 g/dL RDW - SD 45.3 37.6 - 49.1 fL Plt Count 345 191 - 422 10*3/uL MPV 10.5 9.0 - 12.6 fL Automated Differential Collection Time: 07/26/24 5:59 AM Result Value Ref Range Segs % 58.5 40.9 - 70.4 % Lymphs % 23.6 15.3 - 46.4 % Monos % 13.1 (H) 3.9 - 10.9 % Eos % 3.8 0.3 - 4.1 % Basos % 0.6 0.2 - 1.3 % Immature Grans % 0.4 0.1 - 1 % Segs # 3.08 2.03 - 7.09 10*3/uL Lymphs # 1.24 1.09 - 3.65 10*3/uL Monos # 0.69 0.27 - 0.78 10*3/uL Eos # 0.20 0.02 - 0.33 10*3/uL Basos # 0.03 0.01 - 0.09 10*3/uL Imm Grans # 0.02 0.01 - 0.07 10*3/uL Comprehensive Metabolic Panel Collection Time: 07/29/24 5:41 AM Result Value Ref Range Sodium Lvl 140 136 - 145 mEq/L Potassium Lvl 4.5 3.4 - 4.5 mEq/L Chloride Lvl 103 98 - 107 mEq/L CO2 Lvl 25.8 20.0 - 31.0 mEq/L Anion Gap 15.7 10.0 - 20.0 mEq/L Glucose Lvl 93 70 - 99 mg/dL Creatinine Lvl 0.56 0.55 - 1.02 mg/dL BUN 18 9 - 23 mg/dL B/C Ratio 32 (H) 6 - 25 Protein 6.7 5.7 - 8.2 g/dL Albumin Lvl 2.7 (L) 3.4 - 5.0 g/dL Globulin, Calc 4.0 2.0 - 4.0 g/dL Albumin/Globulin Ratio 0.68 (L) 0.7 - 1.6 Calcium Lvl 8.3 8.3 - 10.6 mg/dL ALT 17 7 - 40 U/L AST 27 12 - 40 U/L Alkaline Phosphatase 74 46 - 116 U/L Bilirubin Total 0.33 0.20 - 1.10 mg/dL eGFR 93 >60 mL/min/1.73m2 Phosphorus Level Collection Time: 07/29/24 5:41 AM Result Value Ref Range Phosphorus Lvl 3.9 2.4 - 5.1 mg/dL Magnesium Level Collection Time: 07/29/24 5:41 AM Result Value Ref Range Magnesium 1.97 1.6 - 2.60 mg/dL Complete Blood Count Collection Time: 07/29/24 5:41 AM Result Value Ref Range WBC 5.91 4.15 - 10.55 10*3/uL RBC 3.84 3.74 - 5.22 10*6/uL NRBC % 0.0 0 /100 WBC Hgb 10.4 (L) 10.8 - 14.8 g/dL Hct 34.3 33.9 - 45.4 % MCV 89.3 77.8 - 97.5 fL MCH 27.1 24.9 - 32.6 pg MCHC 30.3 30.1 - 35.0 g/dL RDW - SD 46.5 37.6 - 49.1 fL Plt Count 382 191 - 422 10*3/uL MPV 10.3 9.0 - 12.6 fL Automated Differential Collection Time: 07/29/24 5:41 AM Result Value Ref Range Segs % 55.8 40.9 - 70.4 % Lymphs % 27.1 15.3 - 46.4 % Monos % 13.7 (H) 3.9 - 10.9 % Eos % 2.4 0.3 - 4.1 % Basos % 0.8 0.2 - 1.3 % Immature Grans % 0.2 0.1 - 1 % Segs # 3.30 2.03 - 7.09 10*3/uL Lymphs # 1.60 1.09 - 3.65 10*3/uL Monos # 0.81 (H) 0.27 - 0.78 10*3/uL Eos # 0.14 0.02 - 0.33 10*3/uL Basos # 0.05 0.01 - 0.09 10*3/uL Imm Grans # 0.01 0.01 - 0.07 10*3/uL Comprehensive Metabolic Panel Collection Time: 08/02/24 4:09 AM Result Value Ref Range Sodium Lvl 143 136 - 145 mEq/L Potassium Lvl 4.6 (H) 3.4 - 4.5 mEq/L Chloride Lvl 108 (H) 98 - 107 mEq/L CO2 Lvl 22.6 20.0 - 31.0 mEq/L Anion Gap 17.0 10.0 - 20.0 mEq/L Glucose Lvl 101 (H) 70 - 99 mg/dL Creatinine Lvl 0.56 0.55 - 1.02 mg/dL BUN 14 9 - 23 mg/dL B/C Ratio 25 6 - 25 Protein 6.8 5.7 - 8.2 g/dL Albumin Lvl 2.8 (L) 3.4 - 5.0 g/dL Globulin, Calc 4.0 2.0 - 4.0 g/dL Albumin/Globulin Ratio 0.70 0.7 - 1.6 Calcium Lvl 8.6 8.3 - 10.6 mg/dL ALT 16 7 - 40 U/L AST 25 12 - 40 U/L Alkaline Phosphatase 71 46 - 116 U/L Bilirubin Total 0.19 (L) 0.20 - 1.10 mg/dL eGFR 93 >60 mL/min/1.73m2 Phosphorus Level Collection Time: 08/02/24 4:09 AM Result Value Ref Range Phosphorus Lvl 4.0 2.4 - 5.1 mg/dL Magnesium Level Collection Time: 08/02/24 4:09 AM Result Value Ref Range Magnesium 1.99 1.6 - 2.60 mg/dL Complete Blood Count Collection Time: 08/02/24 4:09 AM Result Value Ref Range WBC 4.61 4.15 - 10.55 10*3/uL RBC 4.02 3.74 - 5.22 10*6/uL NRBC % 0.0 0 /100 WBC Hgb 10.7 (L) 10.8 - 14.8 g/dL Hct 35.6 33.9 - 45.4 % MCV 88.6 77.8 - 97.5 fL MCH 26.6 24.9 - 32.6 pg MCHC 30.1 30.1 - 35.0 g/dL RDW - SD 44.4 37.6 - 49.1 fL Plt Count 385 191 - 422 10*3/uL MPV 9.8 9.0 - 12.6 fL Automated Differential Collection Time: 08/02/24 4:09 AM Result Value Ref Range Segs % 48.0 40.9 - 70.4 % Lymphs % 33.4 15.3 - 46.4 % Monos % 11.9 (H) 3.9 - 10.9 % Eos % 5.2 (H) 0.3 - 4.1 % Basos % 1.1 0.2 - 1.3 % Immature Grans % 0.4 0.1 - 1 % Segs # 2.21 2.03 - 7.09 10*3/uL Lymphs # 1.54 1.09 - 3.65 10*3/uL Monos # 0.55 0.27 - 0.78 10*3/uL Eos # 0.24 0.02 - 0.33 10*3/uL Basos # 0.05 0.01 - 0.09 10*3/uL Imm Grans # 0.02 0.01 - 0.07 10*3/uL Comprehensive Metabolic Panel Collection Time: 08/05/24 5:12 AM Result Value Ref Range Sodium Lvl 143 136 - 145 mEq/L Potassium Lvl 4.1 3.4 - 4.5 mEq/L Chloride Lvl 107 98 - 107 mEq/L CO2 Lvl 26.2 20.0 - 31.0 mEq/L Anion Gap 13.9 10.0 - 20.0 mEq/L Glucose Lvl 97 70 - 99 mg/dL Creatinine Lvl 0.59 0.55 - 1.02 mg/dL BUN 15 9 - 23 mg/dL B/C Ratio 25 6 - 25 Protein 6.8 5.7 - 8.2 g/dL Albumin Lvl 2.8 (L) 3.4 - 5.0 g/dL Globulin, Calc 4.0 2.0 - 4.0 g/dL Albumin/Globulin Ratio 0.70 0.7 - 1.6 Calcium Lvl 8.5 8.3 - 10.6 mg/dL ALT 18 7 - 40 U/L AST 24 12 - 40 U/L Alkaline Phosphatase 69 46 - 116 U/L Bilirubin Total 0.29 0.20 - 1.10 mg/dL eGFR 92 >60 mL/min/1.73m2 Phosphorus Level Collection Time: 08/05/24 5:12 AM Result Value Ref Range Phosphorus Lvl 4.1 2.4 - 5.1 mg/dL Magnesium Level Collection Time: 08/05/24 5:12 AM Result Value Ref Range Magnesium 1.96 1.6 - 2.60 mg/dL Complete Blood Count Collection Time: 08/05/24 5:12 AM Result Value Ref Range WBC 4.26 4.15 - 10.55 10*3/uL RBC 4.09 3.74 - 5.22 10*6/uL NRBC % 0.0 0 /100 WBC Hgb 10.9 10.8 - 14.8 g/dL Hct 35.8 33.9 - 45.4 % MCV 87.5 77.8 - 97.5 fL MCH 26.7 24.9 - 32.6 pg MCHC 30.4 30.1 - 35.0 g/dL RDW - SD 45.1 37.6 - 49.1 fL Plt Count 353 191 - 422 10*3/uL MPV 9.5 9.0 - 12.6 fL Automated Differential Collection Time: 08/05/24 5:12 AM Result Value Ref Range Segs % 45.1 40.9 - 70.4 % Lymphs % 33.8 15.3 - 46.4 % Monos % 15.0 (H) 3.9 - 10.9 % Eos % 4.7 (H) 0.3 - 4.1 % Basos % 0.9 0.2 - 1.3 % Immature Grans % 0.5 0.1 - 1 % Segs # 1.92 (L) 2.03 - 7.09 10*3/uL Lymphs # 1.44 1.09 - 3.65 10*3/uL Monos # 0.64 0.27 - 0.78 10*3/uL Eos # 0.20 0.02 - 0.33 10*3/uL Basos # 0.04 0.01 - 0.09 10*3/uL Imm Grans # 0.02 0.01 - 0.07 10*3/uL Comprehensive Metabolic Panel Collection Time: 08/09/24 6:14 AM Result Value Ref Range Sodium Lvl 143 136 - 145 mEq/L Potassium Lvl 4.4 3.4 - 4.5 mEq/L Chloride Lvl 106 98 - 107 mEq/L CO2 Lvl 25.2 20.0 - 31.0 mEq/L Anion Gap 16.2 10.0 - 20.0 mEq/L Glucose Lvl 87 70 - 99 mg/dL Creatinine Lvl 0.59 0.55 - 1.02 mg/dL BUN 11 9 - 23 mg/dL B/C Ratio 19 6 - 25 Protein 7.3 5.7 - 8.2 g/dL Albumin Lvl 3.1 (L) 3.4 - 5.0 g/dL Globulin, Calc 4.2 (H) 2.0 - 4.0 g/dL Albumin/Globulin Ratio 0.74 0.7 - 1.6 Calcium Lvl 8.7 8.3 - 10.6 mg/dL ALT 19 7 - 40 U/L AST 26 12 - 40 U/L Alkaline Phosphatase 79 46 - 116 U/L Bilirubin Total 0.29 0.20 - 1.10 mg/dL eGFR 92 >60 mL/min/1.73m2 Phosphorus Level Collection Time: 08/09/24 6:14 AM Result Value Ref Range Phosphorus Lvl 3.7 2.4 - 5.1 mg/dL Magnesium Level Collection Time: 08/09/24 6:14 AM Result Value Ref Range Magnesium 1.91 1.6 - 2.60 mg/dL Complete Blood Count Collection Time: 08/09/24 6:14 AM Result Value Ref Range WBC 4.52 4.15 - 10.55 10*3/uL RBC 4.41 3.74 - 5.22 10*6/uL NRBC % 0.0 0 /100 WBC Hgb 11.4 10.8 - 14.8 g/dL Hct 38.7 33.9 - 45.4 % MCV 87.8 77.8 - 97.5 fL MCH 25.9 24.9 - 32.6 pg MCHC 29.5 (L) 30.1 - 35.0 g/dL RDW - SD 46.9 37.6 - 49.1 fL Plt Count 326 191 - 422 10*3/uL MPV 9.6 9.0 - 12.6 fL Automated Differential Collection Time: 08/09/24 6:14 AM Result Value Ref Range Segs % 41.2 40.9 - 70.4 % Lymphs % 36.7 15.3 - 46.4 % Monos % 13.1 (H) 3.9 - 10.9 % Eos % 7.7 (H) 0.3 - 4.1 % Basos % 0.9 0.2 - 1.3 % Immature Grans % 0.4 0.1 - 1 % Segs # 1.86 (L) 2.03 - 7.09 10*3/uL Lymphs # 1.66 1.09 - 3.65 10*3/uL Monos # 0.59 0.27 - 0.78 10*3/uL Eos # 0.35 (H) 0.02 - 0.33 10*3/uL Basos # 0.04 0.01 - 0.09 10*3/uL Imm Grans # 0.02 0.01 - 0.07 10*3/uL Comprehensive Metabolic Panel Collection Time: 08/12/24 5:26 AM Result Value Ref Range Sodium Lvl 141 136 - 145 mEq/L Potassium Lvl 4.6 (H) 3.4 - 4.5 mEq/L Chloride Lvl 107 98 - 107 mEq/L CO2 Lvl 21.4 20.0 - 31.0 mEq/L Anion Gap 17.2 10.0 - 20.0 mEq/L Glucose Lvl 81 70 - 99 mg/dL Creatinine Lvl 0.64 0.55 - 1.02 mg/dL BUN 10 9 - 23 mg/dL B/C Ratio 16 6 - 25 Protein 6.9 5.7 - 8.2 g/dL Albumin Lvl 2.9 (L) 3.4 - 5.0 g/dL Globulin, Calc 4.0 2.0 - 4.0 g/dL Albumin/Globulin Ratio 0.73 0.7 - 1.6 Calcium Lvl 8.7 8.3 - 10.6 mg/dL ALT 24 7 - 40 U/L AST 32 12 - 40 U/L Alkaline Phosphatase 93 46 - 116 U/L Bilirubin Total 0.40 0.20 - 1.10 mg/dL eGFR 90 >60 mL/min/1.73m2 Phosphorus Level Collection Time: 08/12/24 5:26 AM Result Value Ref Range Phosphorus Lvl 3.8 2.4 - 5.1 mg/dL Magnesium Level Collection Time: 08/12/24 5:26 AM Result Value Ref Range Magnesium 1.83 1.6 - 2.60 mg/dL Complete Blood Count Collection Time: 08/12/24 5:26 AM Result Value Ref Range WBC 3.58 (L) 4.15 - 10.55 10*3/uL RBC 4.18 3.74 - 5.22 10*6/uL NRBC % 0.0 0 /100 WBC Hgb 10.6 (L) 10.8 - 14.8 g/dL Hct 36.9 33.9 - 45.4 % MCV 88.3 77.8 - 97.5 fL MCH 25.4 24.9 - 32.6 pg MCHC 28.7 (L) 30.1 - 35.0 g/dL RDW - SD 47.8 37.6 - 49.1 fL Plt Count 272 191 - 422 10*3/uL MPV 9.8 9.0 - 12.6 fL Automated Differential Collection Time: 08/12/24 5:26 AM Result Value Ref Range Segs % 32.7 (L) 40.9 - 70.4 % Lymphs % 39.7 15.3 - 46.4 % Monos % 15.6 (H) 3.9 - 10.9 % Eos % 10.9 (H) 0.3 - 4.1 % Basos % 1.1 0.2 - 1.3 % Immature Grans % 0.0 (L) 0.1 - 1 % Segs # 1.17 (L) 2.03 - 7.09 10*3/uL Lymphs # 1.42 1.09 - 3.65 10*3/uL Monos # 0.56 0.27 - 0.78 10*3/uL Eos # 0.39 (H) 0.02 - 0.33 10*3/uL Basos # 0.04 0.01 - 0.09 10*3/uL Imm Grans # 0.00 (L) 0.01 - 0.07 10*3/uL MRI brain wo IV contrast Result Date: 07/16/2024 EXAM: MRI BRAIN WITHOUT CONTRAST DATE: 07/16/2024 8:50 INDICATION: stroke . COMPARISON: CT angiogram brain and CT brain without contrast July 15, 2024. TECHNIQUE: Multiplanar, multisequence MRI of the brain without contrast. IV contrast: None. FINDINGS: Multiple areas of recent infarct in the right cerebral hemisphere are identified, including the genu of the internal capsule, the insula, temporal pole, the frontal operculum, and the right posterior temporal and occipital lobe, including areas in the territory of the right MCA, right BIOINFORMATICS TECHNICIAN, and the anterior choroidal artery. Petechial hemorrhagic transformation is demonstrated in the posterior frontal lobe. There is periventricular T2 FLAIR signal elevation. There is Global volume loss with widened sulci. There is no mass lesion, or structural abnormality. The skull base, calvarium, and included facial bones are unremarkable. The paranasal sinuses are predominantly clear. IMPRESSION: 1. Extensive areas of recent infarct in the right cerebral hemisphere, including the territory of the right MCA, anterior choroidal artery, and right BIOINFORMATICS TECHNICIAN. 2. Petechial hemorrhagic transformation in the right posterior frontal lobe. This report was dictated by a Fleet Manager/Dispatch/Fellow/MOLLY: Thais Quinonez RES MD 07/16/2024 10:58 This report was dictated by a Fleet Manager/Dispatch/Fellow/Physician [employer]. I have personally reviewed the images as well as the interpretation and agree with the findings. Report finalized by: Huong Burger MD 07/16/2024 11:45 === 07/15/24 === CT ANGIOGRAM CHEST ABDOMEN PELVIS - Impression -1. Negative for aortic dissection, intramural hematoma or other acute aortic abnormality. 2. There is diffuse atherosclerosis. Specifically, there is no evidence for fibromuscular dysplasia. 3. Nonspecific groundglass attenuation seen in the bilateral lower lobes and right middle lobe could be related to atelectasis or inflammation. 4. Sigmoid diverticulosis without evidence for acute diverticulitis. Report finalized by: Taj Edge MD 07/15/2024 10:56 Assessment & PlanDiagnoses and all orders for this visit: Acute ischemic right MCA stroke (HCC) - Complete Blood Count w/Diff and Platelet; Future - Comprehensive Metabolic Panel; Future - Lipid Panel w/calculated LDL; Future - Copper Level; Future - Sedimentation Rate; Future - Vitamin B1 Level; Future - CT brain wo IV contrast; Future Current medications seem appropriate. Repeat labs and imaging. Continue aspirin and statin Time: [address] [facility]2025-02-27 16:01:03Upcoming Encounters Scheduled Orders Name Type Priority Associated Diagnoses Orde r Schedule Complete Blood Count w/Diff and Platelet Lab Routine Acute ischemic right MCA stroke (HCC) Expected: 09/02/2024 (Approximate), Expires: 09/02/2025 Comprehensive Metabolic Panel Lab Routine Acute ischemic right MCA stroke (HCC) Expected: 09/02/2024 (Approximate), Expires: 09/02/2025 Lipid Panel w/calculated LDL Lab Routine Acute ischemic right MCA stroke (HCC) Expected: 09/02/2024 (Approximate), Expires: 09/02/2025 Copper Level Lab Routine Acute ischemic right MCA stroke (HCC) Expected: 09/02/2024 (Approximate), Expires: 09/02/2025 Sedimentation Rate Lab Routine Acute isc hemic right MCA stroke (HCC) Expected: 09/02/2024 (Approximate), Expires: 09/02/2025 Vitamin B1 Level Lab Routine Acute ische mari right MCA stroke (HCC) Expected: 09/02/2024 (Approximate), Expires: 09/02/2025 CT brain wo IV contrast Imaging Routine Acut e ischemic right MCA stroke (HCC) Expected: 09/02/2024, Expires: 09/02/2025 Health Maintenance Due Date Last Done Comments Bone Density Scan 1945 Respiratory Syncytial Virus (RSV) or >=60 (1 - 1-dose 75+ series) 11/16/2019 Medicare Annual Wellness (AWV) 07/21/2020 06/21/2019 Annual Physical 10/02/2022 10/02/2021 Influenza Vaccine (#1) 2024 , 06/13/2020, 05/26/2019 Lipid Panel 07/15/2029 07/15/2024 DTaP/Tdap/Td Vaccines (4 - T d or Tdap) 10/16/2031 10/15/2021, 10/15/2021, 02/04/2010 Pneumococcal Vaccine: 65+ Years Completed 06/21/2019, 02/04/2010 Zoster Vaccines Completed 10/08/2019, 08/09/2019, 02/04/2010 HIB Vaccines Aged Out No longer eligi ble based on patient's age to complete this topic HPV Vaccines Aged Out No longer eligi ble based on patient's age to complete this topic Hepatitis A Vaccines Aged Out No long er eligible based on patient's age to complete this topic Hepatitis B Vaccines Aged Out No long er eligible based on patient's age to complete this topic IPV Vaccines Aged Out No longer eligi ble based on patient's age to complete this topic Meningococcal Vaccine Aged Out No lulú imani eligible based on patient's age to complete this topic Rotavirus Vaccines Aged Out No longer eligible based on patient's age to complete this topic [id number] 16:01:03 [facility] HospitalDheqevd1684-95-38 16:01:03 Diagnosis Acute ischemic right MCA stroke (HCC) - Primary Unspecified cerebral artery occlusion with cerebral infarction [facility] [id number] 16:01:03 [facility] HospitalBsjyhae7760-19-55 16:01:03* Imaging (Routine) - Pending Review Specialty Diagnoses / Procedures Referred By Contac t Referred To Contact Radiology Diagnoses Acute ischemic right MCA stroke (HCC) Procedures CT brain wo IV contrast Xiomara Sanches MD [address] [place] [id number] Phone: tel: fax: Referral ID Status Reason Start Date Expiration Date V isits Requested Visits Authorized [id number] Pending Review 09/02/2024 03/01/2025 1 1 CAL RECEPTIONIST [facility] [id number] 16:01:03* [id number]:01:03 [facility] [id number] 16:01:03* Xiomara Sanches MD - 09/02/2024 11:45 AM MEDICAL RECEPTIONIST History of Present Illness HPI Had a stroke in July. NIHSS 17. 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 Did inpatient therapy and then went home and has been getting home health and is actually scheduled for another 10-20 days of inpatient therapy here locally. Here for reevaluation. Lives with her Allergies as of 09/02/2024 (No Known Allergies) has a current medication list which includes the following prescription(s): aspirin, atorvastatin, and gabapentin. Vitals:09/02/24 1147 BP: 128/73 Pulse: 76 Resp: 16 Temp: 36.6 ?C (97.9 ?F) SpO2: 97% Neurological Exam Mental Status Awake and alert. Speech is normal. Cranial NervesCN II: Visual acuity is normal. Left homonymous hemianopsia. CN III, IV, : Extraocular movements intact bilaterally. Pupils equal round and reactive to light bilaterally. CN VII: Full and symmetric facial movement. CN XII: Tongue midline without atrophy or fasciculations. MotorLeft hemiparesis. 4/5. SensoryLeft hemisensory loss. ReflexesDeep tendon reflexes: Symmetric. Gait In a wheelchair although she can ambulate with a walker. Results for orders placed or performed during the hospital encounter of 07/23/24 POC Glucose Collection Time: 07/25/24 8:21 AM Result Value Ref Range POC Glu 101 (H) 70 - 99 mg/dL POC Performing Location [id number] Comprehensive Metabolic Panel Collection Time: 07/26/24 5:59 AM Result Value Ref Range Sodium Lvl 142 136 - 145 mEq/L Potassium Lvl 4.3 3.4 - 4.5 mEq/L Chloride Lvl 106 98 - 107 mEq/L CO2 Lvl 24.6 20.0 - 31.0 mEq/L Anion Gap 15.7 10.0 - 20.0 mEq/L Glucose Lvl 108 (H) 70 - 99 mg/dL Creatinine Lvl 0.51 (L) 0.55 - 1.02 mg/dL BUN 13 9 - 23 mg/dL B/C Ratio 25 6 - 25 Protein 6.5 5.7 - 8.2 g/dL Albumin Lvl 2.8 (L) 3.4 - 5.0 g/dL Globulin, Calc 3.7 2.0 - 4.0 g/dL Albumin/Globulin Ratio 0.76 0.7 - 1.6 Calcium Lvl 8.4 8.3 - 10.6 mg/dL ALT 18 7 - 40 U/L AST 26 12 - 40 U/L Alkaline Phosphatase 77 46 - 116 U/L Bilirubin Total 0.22 0.20 - 1.10 mg/dL eGFR 95 >60 mL/min/1.73m2 Phosphorus Level Collection Time: 07/26/24 5:59 AM Result Value Ref Range Phosphorus Lvl 3.3 2.4 - 5.1 mg/dL Magnesium Level Collection Time: 07/26/24 5:59 AM Result Value Ref Range Magnesium 1.97 1.6 - 2.60 mg/dL Complete Blood Count Collection Time: 07/26/24 5:59 AM Result Value Ref Range WBC 5.26 4.15 - 10.55 10*3/uL RBC 3.92 3.74 - 5.22 10*6/uL NRBC % 0.0 0 /100 WBC Hgb 10.9 10.8 - 14.8 g/dL Hct 34.7 33.9 - 45.4 % MCV 88.5 77.8 - 97.5 fL MCH 27.8 24.9 - 32.6 pg MCHC 31.4 30.1 - 35.0 g/dL RDW - SD 45.3 37.6 - 49.1 fL Plt Count 345 191 - 422 10*3/uL MPV 10.5 9.0 - 12.6 fL Automated Differential Collection Time: 07/26/24 5:59 AM Result Value Ref Range Segs % 58.5 40.9 - 70.4 % Lymphs % 23.6 15.3 - 46.4 % Monos % 13.1 (H) 3.9 - 10.9 % Eos % 3.8 0.3 - 4.1 % Basos % 0.6 0.2 - 1.3 % Immature Grans % 0.4 0.1 - 1 % Segs # 3.08 2.03 - 7.09 10*3/uL Lymphs # 1.24 1.09 - 3.65 10*3/uL Monos # 0.69 0.27 - 0.78 10*3/uL Eos # 0.20 0.02 - 0.33 10*3/uL Basos # 0.03 0.01 - 0.09 10*3/uL Imm Grans # 0.02 0.01 - 0.07 10*3/uL Comprehensive Metabolic Panel Collection Time: 07/29/24 5:41 AM Result Value Ref Range Sodium Lvl 140 136 - 145 mEq/L Potassium Lvl 4.5 3.4 - 4.5 mEq/L Chloride Lvl 103 98 - 107 mEq/L CO2 Lvl 25.8 20.0 - 31.0 mEq/L Anion Gap 15.7 10.0 - 20.0 mEq/L Glucose Lvl 93 70 - 99 mg/dL Creatinine Lvl 0.56 0.55 - 1.02 mg/dL BUN 18 9 - 23 mg/dL B/C Ratio 32 (H) 6 - 25 Protein 6.7 5.7 - 8.2 g/dL Albumin Lvl 2.7 (L) 3.4 - 5.0 g/dL Globulin, Calc 4.0 2.0 - 4.0 g/dL Albumin/Globulin Ratio 0.68 (L) 0.7 - 1.6 Calcium Lvl 8.3 8.3 - 10.6 mg/dL ALT 17 7 - 40 U/L AST 27 12 - 40 U/L Alkaline Phosphatase 74 46 - 116 U/L Bilirubin Total 0.33 0.20 - 1.10 mg/dL eGFR 93 >60 mL/min/1.73m2 Phosphorus Level Collection Time: 07/29/24 5:41 AM Result Value Ref Range Phosphorus Lvl 3.9 2.4 - 5.1 mg/dL Magnesium Level Collection Time: 07/29/24 5:41 AM Result Value Ref Range Magnesium 1.97 1.6 - 2.60 mg/dL Complete Blood Count Collection Time: 07/29/24 5:41 AM Result Value Ref Range WBC 5.91 4.15 - 10.55 10*3/uL RBC 3.84 3.74 - 5.22 10*6/uL NRBC % 0.0 0 /100 WBC Hgb 10.4 (L) 10.8 - 14.8 g/dL Hct 34.3 33.9 - 45.4 % MCV 89.3 77.8 - 97.5 fL MCH 27.1 24.9 - 32.6 pg MCHC 30.3 30.1 - 35.0 g/dL RDW - SD 46.5 37.6 - 49.1 fL Plt Count 382 191 - 422 10*3/uL MPV 10.3 9.0 - 12.6 fL Automated Differential Collection Time: 07/29/24 5:41 AM Result Value Ref Range Segs % 55.8 40.9 - 70.4 % Lymphs % 27.1 15.3 - 46.4 % Monos % 13.7 (H) 3.9 - 10.9 % Eos % 2.4 0.3 - 4.1 % Basos % 0.8 0.2 - 1.3 % Immature Grans % 0.2 0.1 - 1 % Segs # 3.30 2.03 - 7.09 10*3/uL Lymphs # 1.60 1.09 - 3.65 10*3/uL Monos # 0.81 (H) 0.27 - 0.78 10*3/uL Eos # 0.14 0.02 - 0.33 10*3/uL Basos # 0.05 0.01 - 0.09 10*3/uL Imm Grans # 0.01 0.01 - 0.07 10*3/uL Comprehensive Metabolic Panel Collection Time: 08/02/24 4:09 AM Result Value Ref Range Sodium Lvl 143 136 - 145 mEq/L Potassium Lvl 4.6 (H) 3.4 - 4.5 mEq/L Chloride Lvl 108 (H) 98 - 107 mEq/L CO2 Lvl 22.6 20.0 - 31.0 mEq/L Anion Gap 17.0 10.0 - 20.0 mEq/L Glucose Lvl 101 (H) 70 - 99 mg/dL Creatinine Lvl 0.56 0.55 - 1.02 mg/dL BUN 14 9 - 23 mg/dL B/C Ratio 25 6 - 25 Protein 6.8 5.7 - 8.2 g/dL Albumin Lvl 2.8 (L) 3.4 - 5.0 g/dL Globulin, Calc 4.0 2.0 - 4.0 g/dL Albumin/Globulin Ratio 0.70 0.7 - 1.6 Calcium Lvl 8.6 8.3 - 10.6 mg/dL ALT 16 7 - 40 U/L AST 25 12 - 40 U/L Alkaline Phosphatase 71 46 - 116 U/L Bilirubin Total 0.19 (L) 0.20 - 1.10 mg/dL eGFR 93 >60 mL/min/1.73m2 Phosphorus Level Collection Time: 08/02/24 4:09 AM Result Value Ref Range Phosphorus Lvl 4.0 2.4 - 5.1 mg/dL Magnesium Level Collection Time: 08/02/24 4:09 AM Result Value Ref Range Magnesium 1.99 1.6 - 2.60 mg/dL Complete Blood Count Collection Time: 08/02/24 4:09 AM Result Value Ref Range WBC 4.61 4.15 - 10.55 10*3/uL RBC 4.02 3.74 - 5.22 10*6/uL NRBC % 0.0 0 /100 WBC Hgb 10.7 (L) 10.8 - 14.8 g/dL Hct 35.6 33.9 - 45.4 % MCV 88.6 77.8 - 97.5 fL MCH 26.6 24.9 - 32.6 pg MCHC 30.1 30.1 - 35.0 g/dL RDW - SD 44.4 37.6 - 49.1 fL Plt Count 385 191 - 422 10*3/uL MPV 9.8 9.0 - 12.6 fL Automated Differential Collection Time: 08/02/24 4:09 AM Result Value Ref Range Segs % 48.0 40.9 - 70.4 % Lymphs % 33.4 15.3 - 46.4 % Monos % 11.9 (H) 3.9 - 10.9 % Eos % 5.2 (H) 0.3 - 4.1 % Basos % 1.1 0.2 - 1.3 % Immature Grans % 0.4 0.1 - 1 % Segs # 2.21 2.03 - 7.09 10*3/uL Lymphs # 1.54 1.09 - 3.65 10*3/uL Monos # 0.55 0.27 - 0.78 10*3/uL Eos # 0.24 0.02 - 0.33 10*3/uL Basos # 0.05 0.01 - 0.09 10*3/uL Imm Grans # 0.02 0.01 - 0.07 10*3/uL Comprehensive Metabolic Panel Collection Time: 08/05/24 5:12 AM Result Value Ref Range Sodium Lvl 143 136 - 145 mEq/L Potassium Lvl 4.1 3.4 - 4.5 mEq/L Chloride Lvl 107 98 - 107 mEq/L CO2 Lvl 26.2 20.0 - 31.0 mEq/L Anion Gap 13.9 10.0 - 20.0 mEq/L Glucose Lvl 97 70 - 99 mg/dL Creatinine Lvl 0.59 0.55 - 1.02 mg/dL BUN 15 9 - 23 mg/dL B/C Ratio 25 6 - 25 Protein 6.8 5.7 - 8.2 g/dL Albumin Lvl 2.8 (L) 3.4 - 5.0 g/dL Globulin, Calc 4.0 2.0 - 4.0 g/dL Albumin/Globulin Ratio 0.70 0.7 - 1.6 Calcium Lvl 8.5 8.3 - 10.6 mg/dL ALT 18 7 - 40 U/L AST 24 12 - 40 U/L Alkaline Phosphatase 69 46 - 116 U/L Bilirubin Total 0.29 0.20 - 1.10 mg/dL eGFR 92 >60 mL/min/1.73m2 Phosphorus Level Collection Time: 08/05/24 5:12 AM Result Value Ref Range Phosphorus Lvl 4.1 2.4 - 5.1 mg/dL Magnesium Level Collection Time: 08/05/24 5:12 AM Result Value Ref Range Magnesium 1.96 1.6 - 2.60 mg/dL Complete Blood Count Collection Time: 08/05/24 5:12 AM Result Value Ref Range WBC 4.26 4.15 - 10.55 10*3/uL RBC 4.09 3.74 - 5.22 10*6/uL NRBC % 0.0 0 /100 WBC Hgb 10.9 10.8 - 14.8 g/dL Hct 35.8 33.9 - 45.4 % MCV 87.5 77.8 - 97.5 fL MCH 26.7 24.9 - 32.6 pg MCHC 30.4 30.1 - 35.0 g/dL RDW - SD 45.1 37.6 - 49.1 fL Plt Count 353 191 - 422 10*3/uL MPV 9.5 9.0 - 12.6 fL Automated Differential Collection Time: 08/05/24 5:12 AM Result Value Ref Range Segs % 45.1 40.9 - 70.4 % Lymphs % 33.8 15.3 - 46.4 % Monos % 15.0 (H) 3.9 - 10.9 % Eos % 4.7 (H) 0.3 - 4.1 % Basos % 0.9 0.2 - 1.3 % Immature Grans % 0.5 0.1 - 1 % Segs # 1.92 (L) 2.03 - 7.09 10*3/uL Lymphs # 1.44 1.09 - 3.65 10*3/uL Monos # 0.64 0.27 - 0.78 10*3/uL Eos # 0.20 0.02 - 0.33 10*3/uL Basos # 0.04 0.01 - 0.09 10*3/uL Imm Grans # 0.02 0.01 - 0.07 10*3/uL Comprehensive Metabolic Panel Collection Time: 08/09/24 6:14 AM Result Value Ref Range Sodium Lvl 143 136 - 145 mEq/L Potassium Lvl 4.4 3.4 - 4.5 mEq/L Chloride Lvl 106 98 - 107 mEq/L CO2 Lvl 25.2 20.0 - 31.0 mEq/L Anion Gap 16.2 10.0 - 20.0 mEq/L Glucose Lvl 87 70 - 99 mg/dL Creatinine Lvl 0.59 0.55 - 1.02 mg/dL BUN 11 9 - 23 mg/dL B/C Ratio 19 6 - 25 Protein 7.3 5.7 - 8.2 g/dL Albumin Lvl 3.1 (L) 3.4 - 5.0 g/dL Globulin, Calc 4.2 (H) 2.0 - 4.0 g/dL Albumin/Globulin Ratio 0.74 0.7 - 1.6 Calcium Lvl 8.7 8.3 - 10.6 mg/dL ALT 19 7 - 40 U/L AST 26 12 - 40 U/L Alkaline Phosphatase 79 46 - 116 U/L Bilirubin Total 0.29 0.20 - 1.10 mg/dL eGFR 92 >60 mL/min/1.73m2 Phosphorus Level Collection Time: 08/09/24 6:14 AM Result Value Ref Range Phosphorus Lvl 3.7 2.4 - 5.1 mg/dL Magnesium Level Collection Time: 08/09/24 6:14 AM Result Value Ref Range Magnesium 1.91 1.6 - 2.60 mg/dL Complete Blood Count Collection Time: 08/09/24 6:14 AM Result Value Ref Range WBC 4.52 4.15 - 10.55 10*3/uL RBC 4.41 3.74 - 5.22 10*6/uL NRBC % 0.0 0 /100 WBC Hgb 11.4 10.8 - 14.8 g/dL Hct 38.7 33.9 - 45.4 % MCV 87.8 77.8 - 97.5 fL MCH 25.9 24.9 - 32.6 pg MCHC 29.5 (L) 30.1 - 35.0 g/dL RDW - SD 46.9 37.6 - 49.1 fL Plt Count 326 191 - 422 10*3/uL MPV 9.6 9.0 - 12.6 fL Automated Differential Collection Time: 08/09/24 6:14 AM Result Value Ref Range Segs % 41.2 40.9 - 70.4 % Lymphs % 36.7 15.3 - 46.4 % Monos % 13.1 (H) 3.9 - 10.9 % Eos % 7.7 (H) 0.3 - 4.1 % Basos % 0.9 0.2 - 1.3 % Immature Grans % 0.4 0.1 - 1 % Segs # 1.86 (L) 2.03 - 7.09 10*3/uL Lymphs # 1.66 1.09 - 3.65 10*3/uL Monos # 0.59 0.27 - 0.78 10*3/uL Eos # 0.35 (H) 0.02 - 0.33 10*3/uL Basos # 0.04 0.01 - 0.09 10*3/uL Imm Grans # 0.02 0.01 - 0.07 10*3/uL Comprehensive Metabolic Panel Collection Time: 08/12/24 5:26 AM Result Value Ref Range Sodium Lvl 141 136 - 145 mEq/L Potassium Lvl 4.6 (H) 3.4 - 4.5 mEq/L Chloride Lvl 107 98 - 107 mEq/L CO2 Lvl 21.4 20.0 - 31.0 mEq/L Anion Gap 17.2 10.0 - 20.0 mEq/L Glucose Lvl 81 70 - 99 mg/dL Creatinine Lvl 0.64 0.55 - 1.02 mg/dL BUN 10 9 - 23 mg/dL B/C Ratio 16 6 - 25 Protein 6.9 5.7 - 8.2 g/dL Albumin Lvl 2.9 (L) 3.4 - 5.0 g/dL Globulin, Calc 4.0 2.0 - 4.0 g/dL Albumin/Globulin Ratio 0.73 0.7 - 1.6 Calcium Lvl 8.7 8.3 - 10.6 mg/dL ALT 24 7 - 40 U/L AST 32 12 - 40 U/L Alkaline Phosphatase 93 46 - 116 U/L Bilirubin Total 0.40 0.20 - 1.10 mg/dL eGFR 90 >60 mL/min/1.73m2 Phosphorus Level Collection Time: 08/12/24 5:26 AM Result Value Ref Range Phosphorus Lvl 3.8 2.4 - 5.1 mg/dL Magnesium Level Collection Time: 08/12/24 5:26 AM Result Value Ref Range Magnesium 1.83 1.6 - 2.60 mg/dL Complete Blood Count Collection Time: 08/12/24 5:26 AM Result Value Ref Range WBC 3.58 (L) 4.15 - 10.55 10*3/uL RBC 4.18 3.74 - 5.22 10*6/uL NRBC % 0.0 0 /100 WBC Hgb 10.6 (L) 10.8 - 14.8 g/dL Hct 36.9 33.9 - 45.4 % MCV 88.3 77.8 - 97.5 fL MCH 25.4 24.9 - 32.6 pg MCHC 28.7 (L) 30.1 - 35.0 g/dL RDW - SD 47.8 37.6 - 49.1 fL Plt Count 272 191 - 422 10*3/uL MPV 9.8 9.0 - 12.6 fL Automated Differential Collection Time: 08/12/24 5:26 AM Result Value Ref Range Segs % 32.7 (L) 40.9 - 70.4 % Lymphs % 39.7 15.3 - 46.4 % Monos % 15.6 (H) 3.9 - 10.9 % Eos % 10.9 (H) 0.3 - 4.1 % Basos % 1.1 0.2 - 1.3 % Immature Grans % 0.0 (L) 0.1 - 1 % Segs # 1.17 (L) 2.03 - 7.09 10*3/uL Lymphs # 1.42 1.09 - 3.65 10*3/uL Monos # 0.56 0.27 - 0.78 10*3/uL Eos # 0.39 (H) 0.02 - 0.33 10*3/uL Basos # 0.04 0.01 - 0.09 10*3/uL Imm Grans # 0.00 (L) 0.01 - 0.07 10*3/uL MRI brain wo IV contrast Result Date: 07/16/2024 EXAM: MRI BRAIN WITHOUT CONTRAST DATE: 07/16/2024 8:50 INDICATION: stroke . COMPARISON: CT angiogram brain and CT brain without contrast July 15, 2024. TECHNIQUE: Multiplanar, multisequence MRI of the brain without contrast. IV contrast: None. FINDINGS: Multiple areas of recent infarct in the right cerebral hemisphere are identified, including the genu of the internal capsule, the insula, temporal pole, the frontal operculum, and the right posterior temporal and occipital lobe, including areas in the territory of the right MCA, right BIOINFORMATICS TECHNICIAN, and the anterior choroidal artery. Petechial hemorrhagic transformation is demonstrated in the posterior frontal lobe. There is periventricular T2 FLAIR signal elevation. There is Global volume loss with widened sulci. There is no mass lesion, or structural abnormality. The skull base, calvarium, and included facial bones are unremarkable. The paranasal sinuses are predominantly clear. IMPRESSION: 1. Extensive areas of recent infarct in the right cerebral hemisphere, including the territory of the right MCA, anterior choroidal artery, and right BIOINFORMATICS TECHNICIAN. 2. Petechial hemorrhagic transformation in the right posterior frontal lobe. This report was dictated by a Fleet Manager/Dispatch/Fellow/MOLLY: Thais Quinonez RES MD 07/16/2024 10:58 This report was dictated by a Fleet Manager/Dispatch/Fellow/Physician [employer]. I have personally reviewed the images as well as the interpretation and agree with the findings. Report finalized by: Huong Burger MD 07/16/2024 11:45 === 07/15/24 === CT ANGIOGRAM CHEST ABDOMEN PELVIS - Impression -1. Negative for aortic dissection, intramural hematoma or other acute aortic abnormality. 2. There is diffuse atherosclerosis. Specifically, there is no evidence for fibromuscular dysplasia. 3. Nonspecific groundglass attenuation seen in the bilateral lower lobes and right middle lobe could be related to atelectasis or inflammation. 4. Sigmoid diverticulosis without evidence for acute diverticulitis. Report finalized by: Taj Edge MD 07/15/2024 10:56 Assessment & PlanDiagnoses and all orders for this visit: Acute ischemic right MCA stroke (HCC) - Complete Blood Count w/Diff and Platelet; Future - Comprehensive Metabolic Panel; Future - Lipid Panel w/calculated LDL; Future - Copper Level; Future - Sedimentation Rate; Future - Vitamin B1 Level; Future - CT brain wo IV contrast; Future Current medications seem appropriate. Repeat labs and imaging. Continue aspirin and statin Time: 35 minutes [facility]:01:03Upcoming Encounters Scheduled Orders Name Type Priority Associated Diagnoses Orde r Schedule Complete Blood Count w/Diff and Platelet Lab Routine Acute ischemic right MCA stroke (HCC) Expected: 09/02/2024 (Approximate), Expires: 09/02/2025 Comprehensive Metabolic Panel Lab Routine Acute ischemic right MCA stroke (HCC) Expected: 09/02/2024 (Approximate), Expires: 09/02/2025 Lipid Panel w/calculated LDL Lab Routine Acute ischemic right MCA stroke (HCC) Expected: 09/02/2024 (Approximate), Expires: 09/02/2025 Copper Level Lab Routine Acute ischemic right MCA stroke (HCC) Expected: 09/02/2024 (Approximate), Expires: 09/02/2025 Sedimentation Rate Lab Routine Acute isc hemic right MCA stroke (HCC) Expected: 09/02/2024 (Approximate), Expires: 09/02/2025 Vitamin B1 Level Lab Routine Acute ische mari right MCA stroke (HCC) Expected: 09/02/2024 (Approximate), Expires: 09/02/2025 CT brain wo IV contrast Imaging Routine Acut e ischemic right MCA stroke (HCC) Expected: 09/02/2024, Expires: 09/02/2025 Health Maintenance Due Date Last Done Comments Bone Density Scan 1945 Respiratory Syncytial Virus (RSV) or >=60 (1 - 1-dose 75+ series) 11/16/2019 Medicare Annual Wellness (AWV) 07/21/2020 06/21/2019 Annual Physical 10/02/2022 10/02/2021 Influenza Vaccine (#1) 2024 , 06/13/2020, 05/26/2019 Lipid Panel 07/15/2029 07/15/2024 DTaP/Tdap/Td Vaccines (4 - T d or Tdap) 10/16/2031 10/15/2021, 10/15/2021, 02/04/2010 Pneumococcal Vaccine: 65+ Years Completed 06/21/2019, 02/04/2010 Zoster Vaccines Completed 10/08/2019, 08/09/2019, 02/04/2010 HIB Vaccines Aged Out No longer eligi ble based on patient's age to complete this topic HPV Vaccines Aged Out No longer eligi ble based on patient's age to complete this topic Hepatitis A Vaccines Aged Out No long er eligible based on patient's age to complete this topic Hepatitis B Vaccines Aged Out No long er eligible based on patient's age to complete this topic IPV Vaccines Aged Out No longer eligi ble based on patient's age to complete this topic Meningococcal Vaccine Aged Out No lulú imani eligible based on patient's age to complete this topic Rotavirus Vaccines Aged Out No longer eligible based on patient's age to complete this topic [id number]:01:03 [id number] 16:01:03 Diagnosis Acute ischemic right MCA stroke (HCC) - Primary Unspecified cerebral artery occlusion with cerebral infarction [facility]brpmej3035-81-82 16:01:03 [place] [id number] 14:40:21* Auth/Cert (Routine) Specialty Diagnoses / Procedures Referred By Aysha valdes Referred To Contact Diagnoses Cerebral infarction, unspecified Procedures Service codes require review [address] [place] [phone] TR V ADMITTING [address] [place] [phone] Phone: tel: Referral ID Status Reason Start Date Expiration Date Visits Re quested Visits Authorized [id number] 1 1 [facility]xa[facility]2645[facility]67-11 14:40:21* Over the past 2 weeks, how often have you been bothered by any of the following problems? Question Answer Date of Assessment Author Patient Health Questionnaire -2 Score 0 07/23/2024 1:09 PM Delilah Olson RN * Calculated C-SSRS Risk Score (Lifetime/Recent) Answer Date of Assessment Author No Risk Indicated 07/23/2024 1:15 PM Delilah Sharpe RN * [place] Suicide Severity Rating Scale (Screener/Recent Self-Report) Question Answer Date of Assessment Author 1. Wish to be (Past 1 Month) No 025 1:15 PM Delilah Olson RN 2. Non-Specific Active Suici purnima Thoughts (Past 1 Month) No 07/23/2024 1:15 PM Cristhian Olson RN 6. Suicidal Behavior (Lifetime) No 1:15 PM Delilah Olson RN * Over the past 2 weeks, how often have you been bothered by any of the following problems? Question Answer Date of Assessment Author Little interest or pleasure in doing things Not at all 07/23/2024 1:09 PM Delilah Olson RN Feeling down, depressed, or hopeless Not at all 07/23/2024 1:09 PM Delilah Olson RN Trouble falling or staying asleep, or sleeping too much Not at all 07/23/2024 1:09 PM Delilah Olson RN Feeling tired or having little energy Several days 07/23/2024 1:09 PM Delilah Olson RN Poor appetite or overeating Not at all 07/23/2024 1: 09 PM Delilah Olson RN Trouble concentrating on things, such as reading the newspaper or watching television Not at all 07/23/2024 1:09 PM Delilah Olson RN Moving or speaking so slowly that other people could have noticed? Or the opposite - being so fidgety or restless that you have been moving around a lot more than usual. Not at all 07/23/2024 1:09 PM Delilah Olson RN Thoughts that you would be better off or hurting yourself in some way Not at all 07/23/2024 1:09 PM Delilah Olson RN [id number] 14:40:21* Salomon Rubio DO - 08/13/2024 2:18 PM MEDICAL RECEPTIONIST [facility] Discharge Summary BRIEF OVERVIEW Attending Provider: Salomon Rubio DO Primary Care Physician at Discharge: PCP None Admission Date: 07/23/2024 Discharge Date: 08/13/2024 Discharge Diagnosis ICD-10-CM 1. Cerebrovascular accident (CVA) due to other mechanism (HCC) (primary) I63.89 Ambulatory referral to Home Health 2. CVA (cerebrovascular accident due to intracerebral hemorrhage) (HCC) I61.9 Home DME Wheelchair DME wheelchair 3. Primary hypertension I10 Ambulatory referral to Home Health 4. Dysarthria R47.1 Ambulatory referral to Home Health 5. Oropharyngeal dysphagia R13.12 Ambulatory referral to Home Health 6. Cognitive communication deficit R41.841 Discharge Disposition Patient discharging to : home with family; outpt therapy Code Status at Discharge: Full Code Patient Stable/Unstable stable Discharge Diet:Dietary Orders (From admission, onward) Start Xsqscoc73/05/25 0915 Adult Diet Dysphagia; 0 - Thin Liquids; 6 - Soft & Bite Sized (Dysphagia Advanced); No; 1:1 Feeding Diet effective now Question Answer Comment Diet type Dysphagia Liquid Consistency or Liquid Type: 0 - Thin Liquids Modify Texture or Food Level (Dysphagia): 6 - Soft & Bite Sized (Dysphagia Advanced) Room Service: No Tray Precautions: 1:1 Feeding 08/11/24 0915 Current Diet Orders (From admission, onward) Adult Diet Dysphagia; 0 - Thin Liquids; 6 - Soft & Bite Sized (Dysphagia Advanced); No; 1:1 Feeding Diet effective now Discharge MedicationsHome Medications After Discharge Scheduledaspirin 81 MG chewable tablet, 1 tablet by Per G Tube route 1 time each day. atorvastatin (Lipitor) 80 MG tablet, Take 1 tablet by mouth at bedtime. gabapentin (Neurontin) 250 MG/5ML solution, Take 6 mL by mouth in the morning and 6 mL at noon and 6 mL in the evening. Outpatient Follow-UpNo future appointments. Referrals and Follow-ups to Schedule Ambulatory referral to Home HealthSpecial Instructions: I attest that I or another qualified licensed provider saw Toney Martel 90 days prior to or 30 days post admission and this face to face encounter meets the necessary Home Health requirements. The face to face encounter occurred on 07/28/2024. The encounter with the patient was in whole, or in part, for the following medical necessity, which is the primary reason for home health care. Inability to safely perform ADL's, IADL, complex activities. I certify that, based on my findings, above selected services in the order are medically necessary skilled home health services. Further, I certify that my clinical findings support this patient's homebound status (i.e. absences from home require considerable and taxing effort, are for health treatment, or for attendance at gnosticism events; absences from home for nonmedical reasons are infrequent or are of relatively short duration). The clinical findings that support the need for home care and homebound status are due to Requires assistance with transfers and ambulation and the patient has a condition such that leaving his/her home is medically contraindicated. There exists a normal inability to leave home and leaving home requires a considerable and taxing effort including functional limitations. On what date was the Face to Face Encounter?: 07/28/2024 Requested SOC Date: 08/04/2024 Disciplines Requested: Home Health Aide Occupational Therapy Physical Therapy [facility] Therapy Physician to follow patient's care: PCP Patient should follow up with the following:Primary Care Physician in 1-2 weeks and [facility] in 2-4 weeks Admission Functional Status:Bed mobility: Rolling- Assistance Needed: Physical assistance Physical Assistance Level: 25% or less Sit to lying- Assistance Needed: Physical assistance Physical Assistance Level: 25% or less Sit to stand- Assistance Needed: Physical assistance Physical Assistance Level: 25% or less Bed to chair- Assistance Needed: Physical assistance Physical Assistance Level: 26%-50% Gait:10 feet: Physical Assistance Level: 26%-50% Level of Assistance 1: Partial/Mod assistance 50 feet: Assistance Needed: Physical assistance Wheelchair 50 ft: Assistance Needed: Physical assistance Physical Assistance Level: Total assistance ADLS:Eating: Assistance Needed: Incidental touching Physical Assistance Level: 25% or less Toileting: Assistance Needed: Physical assistance Physical Assistance Level: Total assistance Upper body dressing: Level of Assistance: Substantial/Max assistance Lower Body Dressing: Assistance Needed: Physical assistance Physical Assistance Level: 76% or more Discharge Functional Status:Bed mobility: Rolling- Assistance Needed: Physical assistance Physical Assistance Level: 25% or less Sit to lying- Assistance Needed: Physical assistance Physical Assistance Level: 25% or less Sit to stand- Assistance Needed: Incidental touching Physical Assistance Level: No physical assistance Bed to chair- Assistance Needed: Incidental touching Physical Assistance Level: No physical assistance Gait:10 feet: Physical Assistance Level: No physical assistance Level of Assistance 1: Supervision/touching assistance 50 feet: Assistance Needed: Incidental touching Wheelchair 50 ft: Assistance Needed: Incidental touching Physical Assistance Level: 25% or less ADLS:Eating: Toileting: Assistance Needed: Supervision Physical Assistance Level: 25% or less Upper body dressing: Level of Assistance: Partial/Mod assistance Lower Body Dressing: Assistance Needed: Physical assistance Physical Assistance Level: 26%-50% DETAILS OF HOSPITAL STAYHospital Course Toney Martel is a 78Y F PMH of HTN and carpal tunnel syndrome who was admitted on 07/15/24 on for evaluation of wake up L sided plegia, LFD and R gaze deviation. LKW 2030 07/14/24 when patient went to bed, woke up at 0815 with difficulty waking up. Exam w/ NIHSS 17 for L sided weakness, sensory, LFD, L homonymous hemianopia, R gaze. CT w/ ASPECTS 6 (internal cap., insula, M5, M6) and possible hyperdense R MCA. CTA w/ R ICA dissection, acute occlusion in R ICA and distal reconstitution of flow in MCA territory but M2 and P-com occlusion. CTP w/ established M5/M6 region stroke, but 48ml volume in posterior parietal and occipital regions. Patient taken for emergent thrombectomy. within WAKE UP protocol window IAT TICI3. MRI showing R MCA/BIOINFORMATICS TECHNICIAN/SHAWANDA strokes. Failed FEES 07/20, PEG placed 07/22/23. Patient now presents to [facility]. Today, seen supine in bed appearing comfortable. present at bedside. Patient's comprehension intact, she denies any cp, difficulty breathing, GONZALEZ, pain. PEG was placed yesterday, site appears clean. Patient and family looking forward to therapies. 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 SHe tolerated the intensity of 3hours/day well. Rehab course was uncomplicated. She was started on Gabapentin for neuropathic pain in her LUE>LLE. It was uptitrated to 300mg bid. Please see additional details below. Acute ischemic right MCA stroke (HCC)- Suspected Etiology: Large artery atherosclerosis - CT: ASPECTS 6, hyperdense MCA - CTA: acute occlusion in R ICA and distal reconstitution of flow in MCA territory but M2 and P-com occlusion. - CTP: established M5/M6 region stroke, but 48ml volume in posterior parietal and occipital regions. - MRI brain w/o contrast R MCA/BIOINFORMATICS TECHNICIAN infarct - TTE- EF: 60-65%, atrium normal - Atorvastatin 80 mg daily - ASA 81 mg daily - monitor neurological status Cognitive communication deficitsDysarthria - Continue therapies with JAVA SDET for evaluation of language impairments and cognition - Neuropsychology consultation for cognition and mood Dysphagia- admitted as NPO, continue bolus Tfs and enteral FWF; no longer requiring TF -diet upgraded to ground/thins 07/30. - Continue therapies w/ JAVA SDET. 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 Cardiovascular: No lower limb edema. Lower limbs warm. Respiratory: Breathing comfortably on room air, no tachypnea. Gastrointestinal: Soft, non-distended abdomen. Genitourinary: No Edwards. Musculoskeletal: Full painless passive range of motion of bilateral upper and lower limbs. Skin: No rashes on limited exam of exposed areas. Psychiatric: No anxiety or agitation. Neurologic: awake, alert, left sided neglect, Dysarthria, L HF/KE 4/5 Discharge DiagnosisCVA (cerebrovascular accident due to intracerebral hemorrhage) (HCC) Information Provided to Patient/FamilyI discussed with the patient/family details of the stay. See After Visit Summary which were reviewed and shared with patient/family. Patient Condition at Dischargestable DispositionHome [1] Discharge MedicationsNew gabapentin (Neurontin) 250 MG/5ML solution - 300 mg 3 times daily Changedatorvastatin (Lipitor) 80 MG tablet - 80 mg Nightly - Route changed from "Per G Tube" to "Oral". Continuedaspirin 81 MG chewable tablet - 81 mg Daily Test Results Pending At Discharge Issues Requiring Follow-Up Outpatient Follow-UpNo future appointments. [facility]2025-02-07 14:40:21* This document contains information received from the source organization and may not represent a complete record from that organization. * Restricted notes were excluded * Indira Bentley OT - 08/12/2024 3:42 PM MEDICAL RECEPTIONIST Treatment Session Note Patient Name: Toney Martel Today's Date: 08/12/2024 Preferred Language: Guamanian Assessment & Plan Assessment: OT Assessment Results: Decreased tone, Other (Comment) (decrease ability to perform UE/LE dressing tasks 2/2 to left side weakness and decrease tone. patient demonstrating muscle activation in Left UE shoulder flexion/extension; elbow flexion/extension and partiallly during finger flexion extension) OT Assessment: Patient very cooperative and able to tolerate therapy focus on self care tasks Prognosis: Good Evaluation/Treatment Tolerance: Patient tolerated treatment well Medical Staff Made Aware: Yes Strengths: Ability to acquire knowledge, Support of extended family/friends Barriers to Discharge: Safety awareness Plan: Treatment Plan/Goals Established with Patient/Caregiver: Yes Treatment Interventions: ADL retraining (positioning of LUE during ADL's and sitting in different surfaces) OT Plan: Skilled OT OT Frequency: 5-7 times per week Equipment Recommended: DME wheelchair, Wheelchair- seat cushion pressure reducing, Wheelchair- accessories, Wheelchair- back OT Planned Treatments: Activities of Daily Living, Neuromuscular reeducation OT Duration: 1-2 weeks Subjective Document the Pre/Post Pain assessment in the flowsheet prior to note documentation: Document the Pre/Post Pain assessment in the flowsheet prior to note documentation Pain: Pain Assessment Pain Assessment: 0-10 (08/12/2024899) Pain Score: 0 (08/12/2024899) Vital Signs: Patient Vitals for the past 12 hrs: BP MAP (mmHg) Pulse Resp SpO2 08/12/24 0846 146/72 97 -- -- -- 08/12/24 0615 -- -- 63 15 94 % 08/12/24 0615 158/82 (!) 107 -- -- -- No data found. Objective Patient was oriented in person; situation and time. Patient was able to complete UE and LE dressing tasks with moderate assistance using quad cane. 08/12/24 0900 08/12/24 1300 Time Calculation Start Time 0900 1300 Stop Time 1000 1330 Time Calculation (min) 60 min 30 min Pain Assessment Pain Assessment 0-10 DVPRS Pain Score 0 0 Cognitive-Linguistic Functioning Overall Cognitive Status Other (Comment) (mild impared observed during functional tasks) -- Arousal/Alertness Delayed responses to stimuli -- Orientation Level Oriented X4 -- Following Commands Follows multistep commands with increased time -- Safety Judgment Decreased awareness of need for safety -- Awareness of Deficits Decreased awareness of deficits -- Attention Difficulty dividing attention -- Memory Decreased recall of precautions -- Executive Functions Difficulty with planning -- Attention Cognitive Activity Memory -- Skill worked Divided -- Task Employed Recall safety precautions -- Assistance Level Partial/Mod assistance -- ADL Self Care/Home Management (ADLs) Time Entry 60 30 Assistive Devices And Adaptive Equipments -- Other (specify) (need assistance with fixing hair and assistance to apply deodorant in rigth axila.) Assistive Devices And Adaptive Equipments -- Tub bench UE Dressing Activity Component(s) Short sleeve shirt -- LE Dressing Activity Component(s) Brief;Pants -- ADL Comments Patient -- Bathing Activity Component(s) (secondary to tube abdomen was covered to avoid getting dressing wet) Face;Chest;Arm, left;Arm, right;Perineal area;Buttocks;Leg, left upper;Leg, right upper;Leg, left lower including foot;Leg, right lower including foot Bathing Location -- Tub Level of Assistance -- Substantial/Max assistance Bathing Comments -- Patient was able to cooperate and participate in bathing tasks. Patient nned maximal assistance secondary patient has moderate difficulty with sequencing Shower/Bathe Self Assistance Needed -- Physical assistance Physical Assistance Level -- 51%-75% CARE Score - Shower/Bathe Self -- 2 Tub/Shower Transfers Transfer To/From -- Tub bench Transfer Type -- Stand step (using quad cane. Patient was able to ambulate to the restroom with minimal assistance and transfer to the tub bench with moderate assistance.) Level of Assistance -- Partial/Mod assistance Assistive Devices And Adaptive Equipments -- Other (quad cane and tub transfer benchquad cane) Grooming Activity Component(s) -- Applying deodorant;Combing/brushing/Styling hair Grooming Location -- Wheelchair Level of Assistance -- Partial/Mod assistance Oral Hygiene Assistance Needed Incidental touching -- Physical Assistance Level 25% or less -- CARE Score - Oral Hygiene 3 -- Upper Body Dressing Dressing Location/Position In wheelchair -- Level of Assistance Partial/Mod assistance -- Upper Body Dressing Assistance Needed Physical assistance -- Physical Assistance Level 25% or less -- CARE Score - Upper Body Dressing 3 -- Lower Body Dressing Assistive Devices And Adaptive Equipments Other (specify) (patient is using quad cane to stand up with min assist; and pull brief and pants up while standing. OT educate family in the importance of having a person on her left side at all times to assist patient to facilitate movement; increase safety awareness.) -- Dressing Location/Position In wheelchair -- Level of Assistance Partial/Mod assistance -- Lower Body Dressing Assistance Needed Physical assistance -- Physical Assistance Level 26%-50% -- CARE Score - Lower Body Dressing 3 -- Footwear Dressing Activity Component(s) AFO;Shoes -- Dressing Location/Position In wheelchair -- Level of Assistance Substantial/Max assistance -- Putting On/Taking Off Footwear Assistance Needed Physical assistance -- Physical Assistance Level 76% or more -- CARE Score - Putting On/Taking Off Footwear 2 -- Eating Activity Component(s) Manage containers/package -- Level of Assistance Supervision/touching assistance -- Eating Assistance Needed Incidental touching -- Physical Assistance Level 25% or less -- CARE Score - Eating 3 -- Toileting Activity Component(s) Perineal hygiene, front;Perineal hygiene, back;Managing clothing before;Managing clothing after -- Assistive Devices And Adaptive Equipments Other (elevated commode) -- Level of Assistance Partial/Mod assistance -- Toileting Position/Set Up On toilet -- Toileting Hygiene Assistance Needed Supervision -- Physical Assistance Level 25% or less -- CARE Score - Toileting Hygiene 3 -- Toilet Transfers Toilet Transfer To/From Toilet -- Transfer Type Stand step (using quad cane and left AFO) -- Level of Assistance Supervision/touching assistance -- Toilet Transfer Assistance Needed Physical assistance -- Physical Assistance Level 25% or less -- CARE Score - Toilet Transfer 3 -- Bed Mobility Bed Mobility No -- Transfers Transfer Yes -- Transfer 1 Technique 1 Stand step -- Level of Assistance 1 Partial/Mod assistance -- Transfer To/From Wheelchair;Tub /Shower -- RUE Assessment RUE Assessment WFL -- Upper Extremity Tone Left Upper Extremity Hypotonic -- Right Upper Extremity Normal -- Assessments/Outcomes Modified Deb Scale -- RLE Assessment RLE Assessment WFL -- Modified Deb Scale Modified Deb Score 1 1 (left shoulder and flxors) -- OT Assessment OT Assessment Results Decreased tone;Other (Comment) (decrease ability to perform UE/LE dressing tasks 2/2 to left side weakness and decrease tone. patient demonstrating muscle activation in Left UE shoulder flexion/extension; elbow flexion/extension and partiallly during finger flexion extension) -- OT Assessment Patient very cooperative and able to tolerate therapy focus on self care tasks -- Prognosis Good -- Evaluation/Treatment Tolerance Patient tolerated treatment well -- Medical Staff Made Aware Yes -- Strengths Ability to acquire knowledge;Support of extended family/friends -- Barriers to Discharge Safety awareness -- OT Plan Treatment Plan/Goals Established with Patient/Caregiver Yes -- Treatment Interventions ADL retraining (positioning of LUE during ADL's and sitting in different surfaces) -- OT Plan Skilled OT -- OT Planned Treatments Activities of Daily Living;Neuromuscular reeducation -- Outcome Measures: ADL Self Care/Home Management (ADLs) Time Entry: 90 Assistive Devices And Adaptive Equipments: Other (specify) (need assistance with fixing hair and assistance to apply deodorant in rigth axila.) Assistive Devices And Adaptive Equipments: Tub bench UE Dressing Activity Component(s): Short sleeve shirt LE Dressing Activity Component(s): Brief, Pants ADL Comments: Patient Patient Education: Education Documentation No documentation found. Education Comments No comments found. Goals: Encounter Goals Encounter Goals (Active) Patient will perform upper body dressing with wheelchair level with mod assist to improve independence with dressing. (Progressing) Start: 07/24/24 Expected End: 08/20/24 Patient will perform lower body dressing with analytics manager at wheelchair level with mod assist to improve independence with dressing. (Progressing) Start: 07/24/24 Expected End: 08/20/24 Within 2 weeks of starting therapy, the patient and/or family/caregiver will demonstrate independence and be compliant in a written HEP in order to maximize gains made during therapy. (Progressing) Start: 07/24/24 Expected End: 08/20/24 Pt and/or caregiver(s) will have all appropriate DME, recommendations, or completed prescriptions to maximize pt's safety and independence at discharge. (Progressing) Start: 07/24/24 Expected End: 08/20/24 Patient and/or caregivers will verbalize understanding of home program including safety tips, equipment instructions, and home exercises. (Progressing) Start: 07/24/24 Expected End: 08/20/24 Patient will participate in forced use activities using the affected upper extremity with min assistance to inhibit abnormal movement patterns. (Progressing) Start: 07/24/24 Expected End: 08/20/24 Patient will tolerate weight bearing through their effected upper extremity for 25-30 minutes with min assist. (Progressing) Start: 07/24/24 Expected End: 08/20/24 Indira Bentley, OT CAL RECEPTIONIST CAL RECEPTIONIST * Ange Soler, PT - 08/12/2024 2:00 PM MEDICAL RECEPTIONIST Discharge Evaluation Patient Name: Toney Martel Today's Date: 08/12/2024 Preferred Language: Guamanian Assessment & Plan Assessment: PT Assessment: Iam has completed IPR course following R MCA stroke. Patient is currently supv-Juancho bed mobility, CGA stand step transfer with SBQC and ambualtion CGA with SBQC as well. Patient's was able to provide CGA support but did require education following RIGGING ENGINEER sesison on proper hand placement on waist with gait belt to assist patient. Patient is also complete WC mobility at CGA level and may utilize LE propulsion for longer HH distance for safety if necessary at home aside from ambulation. Educated family on regressions of mobility as [facility] for [facility], AFO management, home safety and fall prevention strategies. Patient will be discharging home with physical assistance and supervision 27/01 from and will continue therapy with HH. Patient has met some of her rehab goals and will continue to make progress in next level of care. DME of 18 inch WC was dispensed for patient and fmaily purchasing SBQC. Plan: Treatment Plan/Goals Established with Patient/Caregiver: Yes PT Frequency: 5-7 times per week PT Discharge Recommendations: Inpatient rehab facility placement Equipment Recommended: DME wheelchair PT Planned Treatment: Balance training, Basic activities of daily living, Bed mobility training, Body weight support treadmill training, Caregiver training, Equipment training, Gait training, Group therapy, Manual therapy, Neuromuscular reeducation, Orthotic training, Patient education, Positioning, Posture/Body mechanics training, Seating, Stair training, Therapeutic activities, Therapeutic exercises, Transfer training, Wheelchair assessment and management Duration: 3-4 weeks Subjective Pain: Pain Assessment Pain Assessment: DVPRS (08/12/2024 1400) Pain Score: 0 (08/12/2024 1400) Vital Signs: Patient Vitals for the past 12 hrs: BP MAP (mmHg) Pulse Resp SpO2 08/12/24 1630 -- -- 66 16 97 % 08/12/24 1630 (!) 153/57 89 -- -- -- 08/12/24 0846 146/72 97 -- -- -- 08/12/24 0615 -- -- 63 15 94 % 08/12/24 0615 158/82 (!) 107 -- -- -- No data found. Objective 08/12/24 1400 General Others Present Brittany and Son Hardy Time Calculation Start Time 1400 Stop Time 1430 Time Calculation (min) 30 min Pain Assessment Pain Assessment DVPRS Pain Score 0 Therapeutic Activity Therapeutic Activity Time Entry 30 Therapeutic Activity 1 ongoing family trianing to assess carryover for on CGA assist for step and ambualtion-- required redirection as he attempts to grab under patient's L arm to complete STS transfer. Able to be redirected by therapist and did not attempt under arm lift following. Able to provide CGA assistance for step and ambulation but patient requires VC for sequencing of step to go up with good leg and down with bad for safety. Patient also propelled WC with B LE CGA to attend to use of L LE as well. Educated son and on other DME to purchase including SBQC, AFO management and safety rpecuations to take at home and regressions in mobility or bed mobility if necessary. All family expressed understanding. Roll Left and Right Assistance Needed Physical assistance Physical Assistance Level 25% or less CARE Score - Roll Left and Right 3 Lying to Sitting on Side of Bed Assistance Needed Incidental touching CARE Score - Lying to Sitting on Side of Bed 4 Sit to Lying Assistance Needed Physical assistance Physical Assistance Level 25% or less CARE Score - Sit to Lying 3 Transfer 1 Technique 1 Via walking Level of Assistance 1 Supervision/touching assistance Trials/Comments 1 with CGA Transfer To/From [id number] Assistive Devices And Adaptive Equipments Cane, small base quad Chair/Tdp-et-Hwsnh Transfer Assistance Needed Incidental touching Physical Assistance Level No physical assistance Comment CGA stand step with SBQC CARE Score - Chair/Jsy-el-Gadiw Transfer 4 Sit to Stand Assistance Needed Incidental touching Physical Assistance Level No physical assistance Comment with SBQC CARE Score - Sit to Stand 4 Car Transfer Assistance Needed Incidental touching Comment with SBQC CARE Score - Car Transfer 4 Gait Training Activity 1 Distance (enter in feet) 100ft Assistive Devices And Adaptive Equipments Cane, small based quad Level of Assistance 1 Supervision/touching assistance Gait Training Activity 1 Comment completed with appropriate gaurding with patient Surface And Method Indoor General Gait Deviations Narrow base of support;Forward trunk lean;Decreased lorena Walk 10 Feet Assistance Needed Incidental touching Physical Assistance Level No physical assistance Comment with SBQC CARE Score - Walk 10 Feet 4 Walk 50 Feet with Two Turns Assistance Needed Incidental touching Physical Assistance Level No physical assistance Comment with SBQC CARE Score - Walk 50 Feet with Two Turns 4 Walk 150 Feet Reason if not Attempted Safety concerns CARE Score - Walk 150 Feet 88 Walking 10 Feet on Uneven Surfaces Reason if not Attempted Safety concerns CARE Score - Walking 10 Feet on Uneven Surfaces 88 1 Step (Curb) Assistance Needed Incidental touching Physical Assistance Level No physical assistance Comment with SBQC CARE Score - 1 Step (Curb) 4 4 Steps Reason if not Attempted Safety concerns CARE Score - 4 Steps 88 12 Steps Reason if not Attempted Safety concerns CARE Score - 12 Steps 88 Wheelchair Activities Propulsion Type 1 Manual Level 1 Level Method 1 Manual UE Propulsion;Manual LE propulsion Level of Assistance 1 Supervision/touching assistance Description/Details 1 primarily LE propulsion Wheel 50 Feet with Two Turns Assistance Needed Incidental touching Comment with B LE primarily CARE Score - Wheel 50 Feet with Two Turns 4 Type of Wheelchair/Scooter Manual Wheel 150 Feet Assistance Needed Incidental touching Comment with B LE primarily CARE Score - Wheel 150 Feet 4 Type of Wheelchair/Scooter Manual Patient Education: Education Documentation No documentation found. Education Comments No comments found. Goals: Encounter Goals Encounter Goals (Active) Rolling: mod-independent (Not Met) Start: 07/23/24 Expected End: 08/13/24 Patient able to propel WC ~300ft supervision with B LE propulsion with appropriate safety awareness, midline orientation, and obstacle avoidance to facilitate safe community mobility. (Not Met) Start: 07/23/24 Expected End: 08/13/24 Encounter Goals (Resolved) Lying<>Sitting<>Lying: CGA/supervision with paris technique (Completed) Start: 07/23/24 Expected End: 08/13/24 Resolved: 08/12/24 Pt will participate in pre-gait activities emphasizing B LE activation, proper sequencing, midline orientation, reciprocal movements, and controlled WS to facilitate safe gait training. (Completed) Start: 07/23/24 Expected End: 08/13/24 Resolved: 08/12/24 Pt will be tolerate ambulation > 100ft CGA with LRAD in order to address safe locomotion necessary for discharge to most appropriate location and return to functional activity. (Completed) Start: 08/03/24 Expected End: 08/13/24 Resolved: 08/12/24 Within 2 weeks of starting therapy, the patient and/or family/caregiver will demonstrate independence and be compliant in a written HEP in order to maximize gains made during therapy. (Completed) Start: 07/23/24 Expected End: 08/13/24 Resolved: 08/12/24 Pt and/or caregiver(s) will have all appropriate DME, recommendations, or completed prescriptions to maximize pt's safety and independence at discharge. (Completed) Start: 07/23/24 Expected End: 08/13/24 Resolved: 08/12/24 Transfers: Juancho stand step with LRAD (Completed) Start: 07/23/24 Expected End: 08/13/24 Resolved: 08/09/24 Sit to Stand: CGA with LRAD (Completed) Start: 07/23/24 Expected End: 08/13/24 Resolved: 08/09/24 Pt will be able to sit for at least 5 mins with support of no UE with midline orientation, erect posture, even KATY, appropriate WBing and ability to reach > 5" outside KATY without LOB to facilitate improved standing to return to functional tasks. (Completed) Start: 07/23/24 Expected End: 08/13/24 Resolved: 08/12/24 Ange Soler, PT CAL RECEPTIONIST * Salomon Rubio, - 08/12/2024 11:42 AM MEDICAL RECEPTIONIST Physical Medicine and Rehabilitation Progress Note - Daily Admission Date: 07/23/2024 SUBJECTIVE:Patient was seen and examined at bedside. Son and spouse at bedside for training today. No issues overnight. Pt states they slept well. PEG not bothering her today. Pt denies f/c, cp, sob, dizziness, n/v/d, dysuria, GONZALEZ, pain. Eating and drinking without issue. AM labs reviewed. Last BM Date: 08/10/24Stool Appearance: Soft Stool Amount: Large Bowel Incontinence: Yes Labs BMP:Results from last 7 days Lab Units 08/12/24 0526 CREATININE mg/dL 0.64 BUN mg/dL 10 SODIUM mEq/L 141 POTASSIUM mEq/L 4.6* CHLORIDE mEq/L 107 CO2 mEq/L 21.4 CBC:Results from last 7 days Lab Units 08/12/24 0526 WBC 10*3/uL 3.58* HEMOGLOBIN g/dL 10.6* HEMATOCRIT % 36.9 MCV fL 88.3 PLATELETS 10*3/uL 272 VitalsVitals: 08/12/24 0615 08/12/24 0615 08/12/24 0845 08/12/24 0846 BP: 158/82 146/72 Pulse: 63 Resp: 15 Temp: 37.2 ?C (99 ?F) SpO2: 94% Intake & OutputI/O last 3 completed shifts: In: 150 (2.1 mL/kg) [P.O.:150] Out: - (0 mL/kg) Weight: 71.8 kg MedicationsScheduled: aspirin, 81 mg, Daily atorvastatin, 80 mg, Nightly Docusate Sodium, 100 mg, BID Enteral Free water Flush, 240 mL, q6h gabapentin, 300 mg, TID heparin, 5,000 Units, q8h senna, 10 mL, Nightly PRNs:acetaminophen, 650 mg, q4h PRN bisacodyl, 10 mg, Nightly PRN dextrose, 12.5 g, Once PRN glucagon, 1 mg, Once PRN melatonin, 3 mg, Nightly PRN sodium chloride, 10 mL, PRN Physical Exam:Constitutional: No acute distress, appearing comfortable, pleasant, cooperative HEENT: NCAT, no scleral icterus, MMM. Cardiovascular: No lower limb edema. Lower limbs warm. Respiratory: Breathing comfortably on room air, no tachypnea. Gastrointestinal: Soft, non-distended abdomen. Genitourinary: No Edwards. Musculoskeletal: Full painless passive range of motion of bilateral upper and lower limbs. Skin: No rashes on limited exam of exposed areas. Psychiatric: No anxiety or agitation. Neurologic: awake, alert, left sided neglect, Dysarthria, L HF/KE 4/5 AssessmentToney Martel is a 78Y F PMH of HTN and carpal tunnel syndrome who was admitted on 07/15/24 on for evaluation of wake up L sided plegia, LFD and R gaze deviation. CTP w/ established M5/M6 region stroke, but 48ml volume in posterior parietal and occipital regions. Patient taken for emergent thrombectomy. within WAKE UP protocol window IAT TICI3. MRI showing R MCA/BIOINFORMATICS TECHNICIAN/SHAWANDA strokes. Failed FEES 07/20, PEG placed 07/22/23. Patient admitted to [facility] on 07/23/24. Acute ischemic right MCA stroke (HCC) - Suspected Etiology: Large artery atherosclerosis - CT: ASPECTS 6, hyperdense MCA - CTA: acute occlusion in R ICA and distal reconstitution of flow in MCA territory but M2 and P-com occlusion. - CTP: established M5/M6 region stroke, but 48ml volume in posterior parietal and occipital regions. - MRI brain w/o contrast R MCA/BIOINFORMATICS TECHNICIAN infarct - TTE- EF: 60-65%, atrium normal - Atorvastatin 80 mg daily - ASA 81 mg daily - monitor neurological status Impaired mobility and ADLsLeft hemiparesis - PT/OT following for strengthening, increased independence with mobility and ADLs, bowel and bladder management, DME evaluation, family training, improvement in balance deficits, improvement in endurance/exercise tolerance Cognitive communication deficitsDysarthria - Continue therapies with JAVA SDET for evaluation of language impairments and cognition - Neuropsychology consultation for cognition and mood Dysphagia- admitted as NPO, continue bolus Tfs and enteral FWF; no longer requiring TF -diet upgraded to ground/thins 07/30. - Continue therapies w/ JAVA SDET. 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 Straight cath if PVR > 200cc. Pain- Continue Tylenol as needed for nociceptive pain - 08/02 increase gabapentin to 300mg BID for ongoing neuropathic pain -08/05 inc omega to tid Skin- Recommend thorough skin evaluation as patient is at risk for pressure injuries. - If patient is unable to reliably change position independently, recommend every 4-6 hours turns to prevent skin breakdown, daily skin checks. Chronic medical co-morbidities:HTN: BP control, BP <140 HLD: statin Prophylaxis- DVT: [facility] Follow-Ups [place] [facility] within 1 [place], [place] [facility] within 3 months for PEG tube, and PCP within 1-2 weeks. CAL RECEPTIONIST * Michael Lopez PTA - 08/12/2024 10:00 AM MEDICAL RECEPTIONIST Treatment Session Note Patient Name: Toney Martel Today's Date: 08/12/2024 Preferred Language: Guamanian Assessment & Plan Assessment: PT Assessment: Pt was able to tolerate therapy session well. Pt and family particiapte in family training with therapist covering bed mobility, transfers, orthotic management, w/c parts, ambulation and curb management. Pt was able to perform all tasks well with general Min A needed for safety and able to provide assistance. Some cueing was needed for guarding and safety but with practice pt and were able to perform all tasks. Prognosis: Good Barriers to Discharge: Safety awareness Evaluation/Treatment Tolerance: Patient tolerated treatment well Medical Staff Made Aware: Yes Strengths: Attitude of self, Support and attitude of living partners, Support of extended family/friends Plan: Treatment Plan/Goals Established with Patient/Caregiver: Yes PT Frequency: 5-7 times per week PT Discharge Recommendations: Inpatient rehab facility placement Equipment Recommended: DME wheelchair PT Planned Treatment: Balance training, Basic activities of daily living, Bed mobility training, Body weight support treadmill training, Caregiver training, Equipment training, Gait training, Group therapy, Manual therapy, Neuromuscular reeducation, Orthotic training, Patient education, Positioning, Posture/Body mechanics training, Seating, Stair training, Therapeutic activities, Therapeutic exercises, Transfer training, Wheelchair assessment and management Duration: 3-4 weeks W/C order had been placed and is to be delivered bedside, family training was done with and son on 08/12. HEP was provided on 08/11. Subjective Pt was seated in w/c with and son bedside when therapist arrived and pt was agreeable to therapy. At the end of session pt was left seated in w/c with maura belt donned and call light in reach. Pain: Pain Assessment Pain Score: 0 (08/12/2024 1000) Pain Rating Scale (DVPRS): No pain (08/12/2024 1000) Hathaway-Maldonado FACES Pain Rating: No hurt (08/12/2024 1000) Clinical Progression: Not changed (08/12/2024 1000) Vital Signs: Patient Vitals for the past 12 hrs: BP MAP (mmHg) Pulse Resp SpO2 08/12/24 0846 146/72 97 -- -- -- 08/12/24 0615 -- -- 63 15 94 % 08/12/24614 158/82 (!) 107 -- -- -- No data found. Objective 08/12/24 1000 PT Last Visit PT Received On 08/12/24 Response to Previous Treatment Patient with no complaints from previous session. General Family/Caregiver Present Yes Others Present Pt and son bedside for training Time Calculation Start Time 1000 Stop Time 1100 Time Calculation (min) 60 min Activity Tolerance Endurance Tolerates 30 min exercise with multiple rests Sitting Balance Sits without upper extremity support up to 30 sec Early Mobility/Exercise Safety Screen Proceed with mobilization - No exclusion criteria met Pain Assessment Pain Score 0 Pain Rating Scale (DVPRS) 0 Hathaway-Maldonado FACES Pain Rating 0 Clinical Progression Not changed Health Conditions Pain Interference with Therapy Activities Rarely or not at all Therapeutic Activity Therapeutic Activity Time Entry 45 Therapeutic Activity 1 Therapist initiated family training with and son teaching them hoe to perform trasnfers with stand step using SBQC and also stand pivot. Therapist demonstrated hadn position, guarding and sridhar fo gait belt for supporting pt. After demonstrationg therapist had pt perform with therapist being present for SPV and providing cueing as needed. needed some cueing for guarding and to also make sure to stay on weak side. After completion therapist reviewed the parts of w/c with and son. Pt was then wheeled by to hallway to practice gait. Bed Mobility Bed Mobility Yes Bed Mobility 1 Level of Assistance 1 Partial/Mod assistance Bed Mobility Comments 1 Therapsit set up environment to mimic bed at home and pt was able to get into bed with min A for LE management Bed Mobility To/From Sitting EOB to supine Assistive Devices And Adaptive Equipments No device Bed Mobility 2 Level of Assistance 2 Supervision/touching assistance Bed Mobility Comments 2 Pt was able to get up from flat bed with in front guarding Bed Mobility To/From Supine to sit on EOB Assistive Devices And Adaptive Equipments No device Roll Left and Right Assistance Needed Physical assistance Physical Assistance Level 25% or less CARE Score - Roll Left and Right 3 Lying to Sitting on Side of Bed Assistance Needed Supervision;Incidental touching CARE Score - Lying to Sitting on Side of Bed 4 Sit to Lying Assistance Needed Physical assistance Physical Assistance Level 25% or less CARE Score - Sit to Lying 3 Transfers Transfer Yes Transfer 1 Technique 1 Stand step Level of Assistance 1 Partial/Mod assistance Trials/Comments 1 Pt was able to perform trasnfer with and therapist assisting with cueing for control and moving cane Transfer To/From Wheelchair;Bed Assistive Devices And Adaptive Equipments Cane, small base quad Transfers 2 Technique 2 Stand step Level of Assistance 2 Partial/Mod assistance Transfer To/From Bed;Wheelchair Assistive Devices And Adaptive Equipments Cane, small base quad Transfers 3 Technique 3 Stand pivot Level of Assistance 3 Partial/Mod assistance Trials/Comments 3 Therapist demonstrated and then had perform stand pivot to and from the bed to w/c Transfer To/From Wheelchair;Bed Assistive Devices And Adaptive Equipments No device Chair/[id number] Transfer Assistance Needed Physical assistance Physical Assistance Level 25% or less CARE Score - Chair/[id number] Transfer 3 Sit to Stand Assistance Needed Incidental touching Physical Assistance Level No physical assistance CARE Score - Sit to Stand 4 Car Transfer Reason if not Attempted Environmental limitations CARE Score - Car Transfer 10 Gait Training Gait Training Time Entry 15 Gait Training Activity Yes Stairs Activity Yes Gait Training Activity 1 Distance (enter in feet) 25ft, 50ft, 45ft Assistive Devices And Adaptive Equipments Cane, small based quad Level of Assistance 1 Partial/Mod assistance Gait Training Activity 1 Comment Therapist demonstrated with pt initally with guarding, cueing and also hand placement. After therapist demonstrated, therapist had pt attempt with therapist providing SPV and son following with w/c. Pt was able to ambuatle well with but needed cueing for slowing down, spacing between feet and also keeping head up. Surface And Method Indoor;Even surface Stairs Activity 1 Assistive Devices And Adaptive Equipments SBQC Step Height (inches) 1 4 Level of Assistance 1 Partial/Mod assistance Stairs comment 1 Therapist retrieved 4 in step and demonstrated to pt and how to go up and down using SBQC. Pt then trialed going up an down with therapist before having attempt with cueing from therapist for guarding and making sure to get feet as close to the edge as possible before stepping up or down. Number Of Stairs 1 Walk 10 Feet Assistance Needed Physical assistance Physical Assistance Level 25% or less CARE Score - Walk 10 Feet 3 Walk 50 Feet with Two Turns Assistance Needed Physical assistance Physical Assistance Level 25% or less CARE Score - Walk 50 Feet with Two Turns 3 Walk 150 Feet Reason if not Attempted Safety concerns CARE Score - Walk 150 Feet 88 Walking 10 Feet on Uneven Surfaces Reason if not Attempted Safety concerns CARE Score - Walking 10 Feet on Uneven Surfaces 88 1 Step (Curb) Assistance Needed Physical assistance Physical Assistance Level 25% or less Comment Using SBQC CARE Score - 1 Step (Curb) 3 4 Steps Reason if not Attempted Safety concerns CARE Score - 4 Steps 88 12 Steps Reason if not Attempted Safety concerns CARE Score - 12 Steps 88 Picking Up Object Reason if not Attempted Safety concerns CARE Score - Picking Up Object 88 Wheel 50 Feet with Two Turns Assistance Needed Physical assistance Physical Assistance Level 25% or less CARE Score - Wheel 50 Feet with Two Turns 3 Type of Wheelchair/Scooter Manual Wheel 150 Feet Assistance Needed Physical assistance Physical Assistance Level 25% or less CARE Score - Wheel 150 Feet 3 Type of Wheelchair/Scooter Manual PT Assessment PT Assessment Pt was able to tolerate therapy session well. Pt and family particiapte in family training with therapist covering bed mobility, transfers, orthotic management, w/c parts, ambulation and curb management. Pt was able to perform all tasks well with general Min A needed for safety and able to provide assistance. Some cueing was needed for guarding and safety but with practice pt and were able to perform all tasks. Prognosis Good Barriers to Discharge Safety awareness Evaluation/Treatment Tolerance Patient tolerated treatment well Medical Staff Made Aware Yes Strengths Attitude of self;Support and attitude of living partners;Support of extended family/friends Patient Education: Education Documentation No documentation found. Education Comments No comments found. Goals: Encounter Goals Encounter Goals (Active) Rolling: mod-independent (Progressing) Start: 07/23/24 Expected End: 08/13/24 Goal Note Pt requires Juancho 2/3 Lying<>Sitting<>Lying: CGA/supervision with paris technique (Progressing) Start: 07/23/24 Expected End: 08/13/24 Goal Note Pt requires Juancho 2/3 Pt will participate in pre-gait activities emphasizing B LE activation, proper sequencing, midline orientation, reciprocal movements, and controlled WS to facilitate safe gait training. (Progressing) Start: 07/23/24 Expected End: 08/13/24 Pt will be tolerate ambulation > 100ft CGA with LRAD in order to address safe locomotion necessary for discharge to most appropriate location and return to functional activity. (Progressing) Start: 08/03/24 Expected End: 08/13/24 Within 2 weeks of starting therapy, the patient and/or family/caregiver will demonstrate independence and be compliant in a written HEP in order to maximize gains made during therapy. (Progressing) Start: 07/23/24 Expected End: 08/13/24 Pt and/or caregiver(s) will have all appropriate DME, recommendations, or completed prescriptions to maximize pt's safety and independence at discharge. (Progressing) Start: 07/23/24 Expected End: 08/13/24 Pt will be able to sit for at least 5 mins with support of no UE with midline orientation, erect posture, even KATY, appropriate WBing and ability to reach > 5" outside KATY without LOB to facilitate improved standing to return to functional tasks. (Progressing) Start: 07/23/24 Expected End: 08/13/24 Patient able to propel WC ~300ft supervision with B LE propulsion with appropriate safety awareness, midline orientation, and obstacle avoidance to facilitate safe community mobility. (Progressing) Start: 07/23/24 Expected End: 08/13/24 Encounter Goals (Resolved) Transfers: Juancho stand step with LRAD (Completed) Start: 07/23/24 Expected End: 08/13/24 Resolved: 08/09/24 Sit to Stand: CGA with LRAD (Completed) Start: 07/23/24 Expected End: 08/13/24 Resolved: 08/09/24 Supervising Physical Therapist: Marcia Jones PT Patient progress towards current goals and plan of care was discussed in person with supervising Physical Therapist. Michael Lopez PTA CAL RECEPTIONIST * Sarah Bailey PT - 08/11/2024 1:30 PM MEDICAL RECEPTIONIST Physical Therapy Treatment Session Note Patient Name: Toney Martel Today's Date: 08/11/2024 Preferred Language: Guamanian Assessment & Plan Assessment: PT Assessment: Pt tolerated sessions well without adverse effects. PT assessed pts ambulation status without use of L AFO today. Pt did fairly well; however, is more stable and safe with use of L AFO so PT continues to recommend pt utilize AFO with all OOB mobility. PT provided pt HEP handout today with seated and supine exercises included. Family training is scheduled with pts son and spouse tomorrow (08/12) from [id number]. Plan: Treatment Plan/Goals Established with Patient/Caregiver: Yes PT Frequency: 5-7 times per week PT Discharge Recommendations: Inpatient rehab facility placement Equipment Recommended: DME wheelchair (PT placed order for 18in MWC 08/10) PT Planned Treatment: Balance training, Basic activities of daily living, Bed mobility training, Body weight support treadmill training, Caregiver training, Equipment training, Gait training, Group therapy, Manual therapy, Neuromuscular reeducation, Orthotic training, Patient education, Positioning, Posture/Body mechanics training, Seating, Stair training, Therapeutic activities, Therapeutic exercises, Transfer training, Wheelchair assessment and management Duration: 3-4 weeks Subjective Pt found seated in WC with t-belt donned upon PT arrival for first session and agreeable to therapy. Upon completion of second session, pt left semi bales in bed with L AFO and tedhose doffed, all needs met, call evans in reach, with tray table set up beside pt, and nsg notified of pt status. Current Problem: Refer to H&P Pain: Pain Assessment Pain Assessment: 0-10 (08/11/2024 1335) Pain Score: 0 (08/11/2024 1335) Hathaway-Maldonado FACES Pain Rating: Hurts little more (08/11/2024 0830) Pain Type: Acute pain (08/11/2024 0830) Pain Location: Other (Comment) (stomach) (08/11/2024 0830) Pain Descriptors: Aching (08/11/2024 08) Pain Interventions: Other (Comment) (use of restroom) (08/11/2024 0830) Vital Signs: Patient Vitals for the past 24 hrs: BP MAP (mmHg) Pulse Resp SpO2 08/11/24 0623 -- -- 59 15 96 % 08/11/24 06 145/66 92 -- -- -- 08/10/242041 -- -- 59 15 94 % 08/10/242040 147/65 92 -- -- -- 08/10/24 1558 -- -- 61 18 99 % 08/10/24 1558 146/70 95 -- -- -- No data found. Health Conditions Health Conditions Pain Interference with Therapy Activities: Rarely or not at all Objective General Visit Information: General Family/Caregiver Present: No Others Present: Record Librarian x30min General Assessments: Activity Tolerance Endurance: Tolerates 30 min exercise with multiple rests Sitting Balance: Sits without support for more than 30 sec Treatment 08/11/24 0830 08/11/24 1335 PT Last Visit PT Received On 08/11/24 08/11/24 Response to Previous Treatment Other (Comment) (Pt reporting complaints of stomach pains; however, willing to participate to tolerance) Patient with no complaints from previous session. General Family/Caregiver Present No No Others Present -- Record Librarian x30min Time Calculation Start Time 0830 1335 Stop Time 0930 1405 Time Calculation (min) 60 min 30 min Activity Tolerance Endurance Tolerates 30 min exercise with multiple rests -- Sitting Balance Sits without support for more than 30 sec -- Pain Assessment Pain Assessment Hathaway-Maldonado FACES 0-10 Pain Score -- 0 Hathaway-[place]onado FACES Pain Rating 4 -- Pain Type Acute pain -- Pain Location Other (Comment) (stomach) -- Pain Descriptors Aching -- Pain Interventions Other (Comment) (use of restroom) -- Health Conditions Pain Interference with Therapy Activities Rarely or not at all Rarely or not at all Therapeutic Exercise Therapeutic Exercise Time Entry 30 -- Therapeutic Exercise Activity 1 For general strength/endurance, pt navigated WC from room<>gym using RUE and BLE with spv and verbal cues for improved attention to L side of environment 2/2 L inattention -- Position 1 Seated -- Therapeutic Exercise Activity 2 While seated EOM, pt performed the following BLE therex x1set [id number] each: ankle pumps (good DF/PF noted in LLE with AFO doffed), LAQ, marching, hip adduction with pillow squeeze, hip abduction with green theraband, and knee flexion with green theraband. PT provided pt HEP handout with seated therex included (supine therex also included in handout; however, did not formally address 2/2 time constraints.) -- Position 2 Seated -- Therapeutic Activity Therapeutic Activity Time Entry 30 15 Therapeutic Activity 1 Pt verbalized need to void and perform BM at beginning of session. PT donned R sock, L tedhose, L AFO, and B shoes with totalA. Pt performed all sit<>stand transitions with CGA throughout session (occasionally required a couple of attempts to complete; however, always successful.) Pt performed all stand-step transfers with L AFO with CGA-Juancho for balance/steadying and safety (WC>toilet, toilet>WC, WC>mat, mat>WC.) Pt able to ambulate from WC>toilet using SBQC and L AFO with CGA-Juancho from PT for balance/steadying and intermittent verbal cues for improved L foot clearance. Pt able to perform toileting with spv and required Juancho from PT for pericare (to ensure pt was cleaned properly) and clothing management. Pt able to maintain standing balance with Juancho while performing dressing task with Juancho. After completion, pt able to ambulate back to WC using SBQC with Juancho. Pt verbalized need to void in restroom at beginning of session. Pt able to ambulate to restroom using SBQC and L AFO with CGA-Juancho. Pt performed toileting with same level of assistance described in first session. Gait Training Gait Training Time Entry -- 15 Gait Training Activity -- Yes Gait Training Activity 1 Distance (enter in feet) -- Pt performed ambulation along x75ft interval with L AFO DOFFED Assistive Devices And Adaptive Equipments -- Cane, small based quad Level of Assistance 1 -- Partial/Mod assistance (Juancho) Gait Training Activity 1 Comment -- with L AFO DOFFED, pts L ankle appeared to land in very slight supination during stance phase; however, not significant. Pts LLE appeared less controlled with AFO doffed and pt appeared to take smaller steps with AFO doffed. No overt LOB or knee buckling noted; however, pt reports comfort with use of L AFO versus without. Surface And Method -- Indoor;Even surface Gait Training Activity 2 Distance (enter in feet) -- Pt performed ambulation along x75ft interval with L AFO DONNED Assistive Devices And Adaptive Equipments -- Cane, small based quad Level of Assistance 2 -- Partial/Mod assistance (Juancho) Gait Training Activity 2 Comment -- Pt did better with placement of SBQC (occasionally ambulates with SBQC intermittently too far forward.) Pt ambulates with head down, B foot flat, intermittent decreased foot clearance on LLE during swing phase; however, no LOB or knee buckling noted. Pt responds to verbal cues; however, doesnt always sustain. Surface And Method -- Indoor;Even surface PT Assessment PT Assessment -- Pt tolerated sessions well without adverse effects. PT assessed pts ambulation status without use of L AFO today. Pt did fairly well; however, is more stable and safe with use of L AFO so PT continues to recommend pt utilize AFO with all OOB mobility. Family training is scheduled with pts son and spouse tomorrow (08/12) from [id number]. Patient Education: Education Documentation Home Exercise Program, taught by Sarah Bailey PT at 08/11/2024 2:14 PM. Learner: Patient Readiness: Acceptance Method: Explanation, Handout Response: Verbalizes Understanding, Needs Reinforcement Gait, taught by Sarah Bailey PT at 08/11/2024 2:14 PM. Learner: Patient Readiness: Acceptance Method: Explanation, Handout Response: Verbalizes Understanding, Needs Reinforcement Education Comments No comments found. Goals: Encounter Goals Encounter Goals (Active) Rolling: mod-independent (Progressing) Start: 07/23/24 Expected End: 08/13/24 Goal Note Pt requires Juancho 2/3 Lying<>Sitting<>Lying: CGA/supervision with paris technique (Progressing) Start: 07/23/24 Expected End: 08/13/24 Goal Note Pt requires Juancho 2/3 Pt will participate in pre-gait activities emphasizing B LE activation, proper sequencing, midline orientation, reciprocal movements, and controlled WS to facilitate safe gait training. (Progressing) Start: 07/23/24 Expected End: 08/13/24 Pt will be tolerate ambulation > 100ft CGA with LRAD in order to address safe locomotion necessary for discharge to most appropriate location and return to functional activity. (Progressing) Start: 08/03/24 Expected End: 08/13/24 Within 2 weeks of starting therapy, the patient and/or family/caregiver will demonstrate independence and be compliant in a written HEP in order to maximize gains made during therapy. (Progressing) Start: 07/23/24 Expected End: 08/13/24 Pt and/or caregiver(s) will have all appropriate DME, recommendations, or completed prescriptions to maximize pt's safety and independence at discharge. (Progressing) Start: 07/23/24 Expected End: 08/13/24 Pt will be able to sit for at least 5 mins with support of no UE with midline orientation, erect posture, even KATY, appropriate WBing and ability to reach > 5" outside KATY without LOB to facilitate improved standing to return to functional tasks. (Progressing) Start: 07/23/24 Expected End: 08/13/24 Patient able to propel WC ~300ft supervision with B LE propulsion with appropriate safety awareness, midline orientation, and obstacle avoidance to facilitate safe community mobility. (Progressing) Start: 07/23/24 Expected End: 08/13/24 Encounter Goals (Resolved) Transfers: Juancho stand step with LRAD (Completed) Start: 07/23/24 Expected End: 08/13/24 Resolved: 08/09/24 Sit to Stand: CGA with LRAD (Completed) Start: 07/23/24 Expected End: 08/13/24 Resolved: 08/09/24 Sarah Bailey PT CAL RECEPTIONIST * Monet Blake MD - 08/11/2024 1:13 PM MEDICAL RECEPTIONIST Physical Medicine and Rehabilitation Progress Note - Daily Admission Date: 07/23/2024 SUBJECTIVE:NAEON; VSS; Patient seen sitting up in chair comfortably. She endorses some nausea this morning without any episodes of vomiting. She states it quickly went away and she is now feeling better. She endorses regular bowel movements. Denies any pain. No questions or concerns at this time. Last BM Date: 08/10/24Stool Appearance: Soft Stool Amount: Large Bowel Incontinence: Yes Labs BMP:Results from last 7 days Lab Units 08/09/24 0614 CREATININE mg/dL 0.59 BUN mg/dL 11 SODIUM mEq/L 143 POTASSIUM mEq/L 4.4 CHLORIDE mEq/L 106 CO2 mEq/L 25.2 CBC:Results from last 7 days Lab Units 08/09/24 0614 WBC 10*3/uL 4.52 HEMOGLOBIN g/dL 11.4 HEMATOCRIT % 38.7 MCV fL 87.8 PLATELETS 10*3/uL 326 PTT:Coagulation: UA: No lab exists for component: "SPECGRAVU", "BLOODU", "LEUKOCYTESU"UC: No results found for the last 90 days. Filters applied: Specimen Type. BCX: No results found for the last 90 days.Filters applied: Specimen Type. PRNs in past 24 hours: VitalsVitals: 08/10/24204108/11/2462108/11/2462208/11/24622 BP: 145/66 Pulse: 59 59 Resp: 15 15 Temp: 36.3 ?C (97.4 ?F) SpO2: 94% 96% Intake & OutputNo intake/output data recorded. MedicationsScheduled: aspirin, 81 mg, Daily atorvastatin, 80 mg, Nightly Docusate Sodium, 100 mg, BID Enteral Free water Flush, 240 mL, q6h gabapentin, 300 mg, TID heparin, 5,000 Units, q8h senna, 10 mL, Nightly PRNs:acetaminophen, 650 mg, q4h PRN bisacodyl, 10 mg, Nightly PRN dextrose, 12.5 g, Once PRN glucagon, 1 mg, Once PRN melatonin, 3 mg, Nightly PRN sodium chloride, 10 mL, PRN Physical Exam:Constitutional: No acute distress, appearing comfortable, pleasant, cooperative HEENT: NCAT, no scleral icterus, MMM. Cardiovascular: No lower limb edema. Lower limbs warm. Respiratory: Breathing comfortably on room air, no tachypnea. Gastrointestinal: Soft, non-distended abdomen. Genitourinary: No Edwards. Musculoskeletal: Full painless passive range of motion of bilateral upper and lower limbs. Skin: No rashes on limited exam of exposed areas. Psychiatric: No anxiety or agitation. Neurologic: awake, alert, left sided neglect, Dysarthria, L HF/KE 4/5 [facility] is a 78Y F PMH of HTN and carpal tunnel syndrome who was admitted on 07/15/24 on for evaluation of wake up L sided plegia, LFD and R gaze deviation. CTP w/ established M5/M6 region stroke, but 48ml volume in posterior parietal and occipital regions. Patient taken for emergent thrombectomy. within WAKE UP protocol window IAT TICI3. MRI showing R MCA/BIOINFORMATICS TECHNICIAN/SHAWANDA strokes. Failed FEES 07/20, PEG placed 07/22/23. Patient admitted to [facility] on 07/23/24. Acute ischemic right MCA stroke (HCC) - Suspected Etiology: Large artery atherosclerosis - CT: ASPECTS 6, hyperdense MCA - CTA: acute occlusion in R ICA and distal reconstitution of flow in MCA territory but M2 and P-com occlusion. - CTP: established M5/M6 region stroke, but 48ml volume in posterior parietal and occipital regions. - MRI brain w/o contrast R MCA/BIOINFORMATICS TECHNICIAN infarct - TTE- EF: 60-65%, atrium normal - Atorvastatin 80 mg daily - ASA 81 mg daily - monitor neurological status Impaired mobility and ADLsLeft hemiparesis - PT/OT following for strengthening, increased independence with mobility and ADLs, bowel and bladder management, DME evaluation, family training, improvement in balance deficits, improvement in endurance/exercise tolerance Cognitive communication deficitsDysarthria - Continue therapies with JAVA SDET for evaluation of language impairments and cognition - Neuropsychology consultation for cognition and mood Dysphagia- admitted as NPO, continue bolus Tfs and enteral FWF; no longer requiring TF -diet upgraded to ground/thins 07/30. - Continue therapies w/ JAVA SDET. 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 Straight cath if PVR > 200cc. Pain- Continue Tylenol as needed for nociceptive pain - 08/02 increase gabapentin to 300mg BID for ongoing neuropathic pain -08/05 inc omega to tid Skin- Recommend thorough skin evaluation as patient is at risk for pressure injuries. - If patient is unable to reliably change position independently, recommend every 4-6 hours turns to prevent skin breakdown, daily skin checks. Chronic medical co-morbidities:HTN: BP control, BP <140 HLD: statin Prophylaxis- DVT: [facility] Follow-Ups [place], [place] [facility] within 3 months for PEG tube, and PCP within 1-2 weeks. Cosigned by Salomon Rubio DO at 08/11/2024 1:21 PM MEDICAL RECEPTIONIST CAL RECEPTIONIST CAL RECEPTIONIST Associated attestation - Salomon Rubio DO - 08/11/2024 1:21 PM MEDICAL RECEPTIONIST I saw and evaluated the patient with the resident, participating in the kiran portions of the service. I reviewed the resident's note and agree with the documented findings and plan of care. Physical Medicine and Rehabilitation Attending Physician Attestation: I attest that I performed or was physically present during the kiran or critical portions of the service performed by the resident and actively participated in the management of the patient. I have reviewed the resident note and agree with the documented findings and plan of care with any exceptions noted below. I spent over 35 minutes caring for this patient today, reviewing labs andrecords from another provider, obtaining the history, performing the physical exam, documenting in the records and arranging for the following: [x] counseling/education on MANNY/SCI/injury [ ] ordering medications: [ ] [ ] ordering tests: [ ] [ ] ordering procedures: [ ] [ ] Consulting the following providers: [ ] [x] Documentation of clinical information [x] Independently interpreting clinical results of [ ] and communicating results to the patient/family/caregiver [x] Care coordination with therapy/SW/consultants Deedee Santoro #[id number] * Sheree Jasmine OT - 08/11/2024 10:00 AM MEDICAL RECEPTIONIST Occupational Therapy Treatment Session Note Patient Name: Toney Martel Today's Date: 08/11/2024 Preferred Language: Guamanian Assessment & Plan Assessment: OT Assessment Results: Impaired ADL status, Impaired left upper extremity, Impaired functional mobility, Impaired fine motor control, Impaired safe judgment during ADL, Impaired upper extremity strength, Impaired upper extremity range of motion OT Assessment: Patient tolerated session well and continues to demonstrate improved functional mobility and incorporation of LUE into self-care tasks. However, primary limitations continue to include limited function of LUE as cannot achieve full grasp or pinch and only partial ROM of shoulder and elbow. Patient still requires Mod A for UB dressing and Min A for grooming tasks and Mod A for toileting overall. Footwear mgt Max A with inclusion of AFO. Will continue to address LUE function with NMR and incorporating standing Strengths: Attitude of self, Coping skills Barriers to Discharge: Severity of deficits, Safety awareness Plan: OT Planned Treatments: Activities of Daily Living, Work simplification, Balance training, Coordination, Energy conservation training, Equipment training, Orthotic, Joint protection, Patient education, Safety education, Seating/Positioning, Therapeutic activities, Therapeutic exercises Subjective "I'm trying to get my left arm to cooperate more." Objective 08/11/24 1000 Pain Assessment Pain Assessment 0-10 Pain Score 7 Pain Type Acute pain Pain Location Hand Pain Orientation Left Pain Descriptors Pins and needles;Tingling Pain Frequency Intermittent ADL Self Care/Home Management (ADLs) Time Entry 15 UE Dressing Activity Component(s) Zip-up sweatshirt/jacket Grooming Grooming Comments Min A assisting with L side of hair Activity Component(s) Combing/brushing/Styling hair Grooming Location Wheelchair Level of Assistance Partial/Mod assistance Upper Body Dressing Dressing Location/Position In wheelchair Level of Assistance Partial/Mod assistance Comment Mod A to thread LUE with additional cueing and hand over hand guidance for paris technique Therapeutic Procedures Time Entry Neuromuscular Re-Education Time Entry 35 Wheelchair Management Time Entry 10 Wheelchair Activities Propulsion Type 1 Manual Level 1 Level Method 1 Manual UE Propulsion;Left lower extremity;Right lower extremity;Right upper extremity Level of Assistance 1 Partial/Mod assistance Description/Details 1 Min A with occasional assist steering away from obstacles on L side though patient consistently responded appropriately to cues to scan environment Balance/Neuromuscular Re-Education Balance/Neuromuscular Re-Education Activity 1 Sustained standing while rolling bolster under BUE; patient held L hand in place with R hand on top while leaning over raised table and extending arms Position 1 Standing Balance/Neuromuscular Re-Education Activity 2 Stacking cups with LUE with assist from RUE to position fingers and stabilize corporate staff accountant while OT guided elbow Position 2 Seated Patient Education: Education Documentation No documentation found. Education Comments No comments found. Goals: Encounter Goals Encounter Goals (Active) Patient will perform upper body dressing with wheelchair level with mod assist to improve independence with dressing. (Progressing) Start: 07/24/24 Expected End: 08/20/24 Patient will perform lower body dressing with analytics manager at wheelchair level with mod assist to improve independence with dressing. (Progressing) Start: 07/24/24 Expected End: 08/20/24 Within 2 weeks of starting therapy, the patient and/or family/caregiver will demonstrate independence and be compliant in a written HEP in order to maximize gains made during therapy. (Progressing) Start: 07/24/24 Expected End: 08/20/24 Pt and/or caregiver(s) will have all appropriate DME, recommendations, or completed prescriptions to maximize pt's safety and independence at discharge. (Progressing) Start: 07/24/24 Expected End: 08/20/24 Patient and/or caregivers will verbalize understanding of home program including safety tips, equipment instructions, and home exercises. (Progressing) Start: 07/24/24 Expected End: 08/20/24 Patient will participate in forced use activities using the affected upper extremity with min assistance to inhibit abnormal movement patterns. (Progressing) Start: 07/24/24 Expected End: 08/20/24 Patient will tolerate weight bearing through their effected upper extremity for 25-30 minutes with min assist. (Progressing) Start: 07/24/24 Expected End: 08/20/24 Sheree Jasmine, OT CAL RECEPTIONIST * Monet Blake MD - 08/10/2024 3:14 PM MEDICAL RECEPTIONIST Physical Medicine and Rehabilitation Progress Note - Daily Admission Date: 07/23/2024 SUBJECTIVE:AMINA; VSS; Patient seen sitting up in chair comfortably. She states she has some discomfort from the plastic on her PEG tube that is alleviated by using the abdominal binder. She has no questions or concerns at this time. Last BM Date: 08/09/24Stool Appearance: Soft Stool Amount: Large Bowel Incontinence: Yes Labs BMP:Results from last 7 days Lab Units 08/09/24 0614 CREATININE mg/dL 0.59 BUN mg/dL 11 SODIUM mEq/L 143 POTASSIUM mEq/L 4.4 CHLORIDE mEq/L 106 CO2 mEq/L 25.2 CBC:Results from last 7 days Lab Units 08/09/24 0614 WBC 10*3/uL 4.52 HEMOGLOBIN g/dL 11.4 HEMATOCRIT % 38.7 MCV fL 87.8 PLATELETS 10*3/uL 326 PTT:Coagulation: UA: No lab exists for component: "SPECGRAVU", "BLOODU", "LEUKOCYTESU"UC: No results found for the last 90 days. Filters applied: Specimen Type. BCX: No results found for the last 90 days.Filters applied: Specimen Type. PRNs in past 24 hours: VitalsVitals: 08/09/24 1922 08/10/24 0556 08/10/24 0557 08/10/24 0557 BP: 148/60 Pulse: 58 54 Resp: 15 18 Temp: 37.1 ?C (98.8 ?F) SpO2: 95% 97% Intake & OutputI/O last 3 completed shifts: In: 240 (3.3 mL/kg) [P.O.:240] Out: 650 (9.1 mL/kg) [Urine:650 (0.3 mL/kg/hr)] Weight: 71.8 kg MedicationsScheduled: aspirin, 81 mg, Daily atorvastatin, 80 mg, Nightly Docusate Sodium, 100 mg, BID Enteral Free water Flush, 240 mL, q6h gabapentin, 300 mg, TID heparin, 5,000 Units, q8h senna, 10 mL, Nightly PRNs:acetaminophen, 650 mg, q4h PRN bisacodyl, 10 mg, Nightly PRN dextrose, 12.5 g, Once PRN glucagon, 1 mg, Once PRN melatonin, 3 mg, Nightly PRN sodium chloride, 10 mL, PRN Physical Exam:Constitutional: No acute distress, appearing comfortable, pleasant, cooperative HEENT: NCAT, no scleral icterus, MMM. Cardiovascular: No lower limb edema. Lower limbs warm. Respiratory: Breathing comfortably on room air, no tachypnea. Gastrointestinal: Soft, non-distended abdomen. Genitourinary: No Edwards. Musculoskeletal: Full painless passive range of motion of bilateral upper and lower limbs. Skin: No rashes on limited exam of exposed areas. Psychiatric: No anxiety or agitation. Neurologic: awake, alert, left sided neglect, Dysarthria, L HF/KE 4/5 [facility] is a 78Y F PMH of HTN and carpal tunnel syndrome who was admitted on 07/15/24 on for evaluation of wake up L sided plegia, LFD and R gaze deviation. CTP w/ established M5/M6 region stroke, but 48ml volume in posterior parietal and occipital regions. Patient taken for emergent thrombectomy. within WAKE UP protocol window IAT TICI3. MRI showing R MCA/BIOINFORMATICS TECHNICIAN/SHAWANDA strokes. Failed FEES 07/20, PEG placed 07/22/23. Patient admitted to [facility] on 07/23/24. Acute ischemic right MCA stroke (HCC) - Suspected Etiology: Large artery atherosclerosis - CT: ASPECTS 6, hyperdense MCA - CTA: acute occlusion in R ICA and distal reconstitution of flow in MCA territory but M2 and P-com occlusion. - CTP: established M5/M6 region stroke, but 48ml volume in posterior parietal and occipital regions. - MRI brain w/o contrast R MCA/BIOINFORMATICS TECHNICIAN infarct - TTE- EF: 60-65%, atrium normal - Atorvastatin 80 mg daily - ASA 81 mg daily - monitor neurological status Impaired mobility and ADLsLeft hemiparesis - PT/OT following for strengthening, increased independence with mobility and ADLs, bowel and bladder management, DME evaluation, family training, improvement in balance deficits, improvement in endurance/exercise tolerance Cognitive communication deficitsDysarthria - Continue therapies with JAVA SDET for evaluation of language impairments and cognition - Neuropsychology consultation for cognition and mood Dysphagia- admitted as NPO, continue bolus Tfs and enteral FWF; no longer requiring TF -diet upgraded to ground/thins 07/30. - Continue therapies w/ JAVA SDET. 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 Straight cath if PVR > 200cc. Pain- Continue Tylenol as needed for nociceptive pain - 08/02 increase gabapentin to 300mg BID for ongoing neuropathic pain -08/05 inc omega to tid Skin- Recommend thorough skin evaluation as patient is at risk for pressure injuries. - If patient is unable to reliably change position independently, recommend every 4-6 hours turns to prevent skin breakdown, daily skin checks. Chronic medical co-morbidities:HTN: BP control, BP <140 HLD: statin Prophylaxis- DVT: [facility] Follow-Ups [place], [place] [facility] 3 months for PEG tube, and PCP within 1-2 weeks. Cosigned by Salomon Rubio DO at 08/10/2024 3:18 PM MEDICAL RECEPTIONIST CAL RECEPTIONIST CAL RECEPTIONIST Associated attestation - Salomon Rubio DO - 08/10/2024 3:18 PM MEDICAL RECEPTIONIST I saw and evaluated the patient with the resident, participating in the kiran portions of the service. I reviewed the resident's note and agree with the documented findings and plan of care. Physical Medicine and Rehabilitation Attending Physician Attestation: I attest that I performed or was physically present during the kiran or critical portions of the service performed by the resident and actively participated in the management of the patient. I have reviewed the resident note and agree with the documented findings and plan of care with any exceptions noted below. I spent over 35 minutes caring for this patient today, reviewing labs andrecords from another provider, obtaining the history, performing the physical exam, documenting in the records and arranging for the following: [x] counseling/education on MANNY/SCI/injury [ ] ordering medications: [ ] [ ] ordering tests: [ ] [ ] ordering procedures: [ ] [ ] Consulting the following providers: [ ] [x] Documentation of clinical information [x] Independently interpreting clinical results of [ ] and communicating results to the patient/family/caregiver [x] Care coordination with therapy/SW/consultants Deedee Santoro #[id number] * Sarah Bailey, PT - 08/10/2024 1:30 PM MEDICAL RECEPTIONIST Physical Therapy Treatment Session Note Patient Name: Toney Martel Today's Date: 08/10/2024 Preferred Language: Guamanian Assessment & Plan Assessment: PT Assessment: Pt tolerated sessions well without adverse effects. Pt continues to function primarily at Juancho with use of SBQC and L AFO at this time. Pts balance deficits and impaired righting reactions make pt a high fall risk. Family training scheduled with pts son and spouse for Misha (08/12) at 0900. Plan: Treatment Plan/Goals Established with Patient/Caregiver: Yes PT Frequency: 5-7 times per week PT Discharge Recommendations: Outpatient PT Equipment Recommended: DME wheelchair (PT placed order for 18in [facility] 08/10) PT Planned Treatment: Balance training, Basic activities of daily living, Bed mobility training, Body weight support treadmill training, Caregiver training, Equipment training, Gait training, Group therapy, Manual therapy, Neuromuscular reeducation, Orthotic training, Patient education, Positioning, Posture/Body mechanics training, Seating, Stair training, Therapeutic activities, Therapeutic exercises, Transfer training, Wheelchair assessment and management Duration: 3-4 weeks Subjective Pt found semi bales in bed upon PT arrival for first session and agreeable to therapy. Upon completion of second session, pt left seated in WC with t-belt donned, L AFO donned, all needs met, call evans in reach, with tray table set up beside pt, and nsg notified of pt status. Current Problem: Refer to H&P Pain: Pain Assessment Pain Assessment: 0-10 (08/10/2024 1330) Pain Score: 0 (08/10/2024 1330) Vital Signs: Patient Vitals for the past 24 hrs: BP MAP (mmHg) Pulse Resp SpO2 08/10/24 0557 -- -- 54 18 97 % 08/10/24 0557 148/60 89 -- -- -- 08/09/24 1922 -- -- 58 15 95 % 08/09/24 1921 151/75 100 -- -- -- 08/09/24 1550 -- -- 64 18 98 % 08/09/24 1548 (!) 162/71 (!) 101 -- -- -- No data found. Health Conditions Health Conditions Pain Interference with Therapy Activities: Rarely or not at all Objective General Visit Information: General Family/Caregiver Present: No Others Present: Record Librarian General Assessments: Activity Tolerance Endurance: Tolerates 30 min exercise with multiple rests Sitting Balance: Sits without support for more than 30 sec Treatment Therapeutic Activity Therapeutic Activity Time Entry: 30 Therapeutic Activity 1: Pt performed supine>sit transition with CGA-Juancho for trunk management with use of bedrails for support with HOB flat. Once seated EOB, pt verbalized brief was soiled with urine. PT donned R sock, L tedhose, L AFO, and B shoes with totalA. Pt transitioned into standing with CGA and was able to maintain standing balance with CGA-Juancho while assisting PT with doffing dirty brief, performing pericare, donning clean brief, and performing LB clothing management with modA. After completion, pt performed stand-pivot transfer from bed> with Juancho. PT assisted pt with breakfast set up. Pt required x10min to eat breakfast and required verbal cues from PT to bautista dentures, clear L side of mouth, and take proper amount of sips of liquid between bites of food. After completion, pt navigated to lincoln with spv in preparation for gait training. Gait: Gait Training Time Entry: 30 Gait Training Activity 1: Distance (enter in feet): x75ft, x125ft, and x140ft Assistive Devices And Adaptive Equipments: Cane, small based quad, Other (comment) (L AFO) Level of Assistance 1: Partial/Mod assistance Gait Training Activity 1 Comment: Pt ambulates with SBQC intermittently too far forward, head down, B foot flat, intermittent decreased foot clearance on LLE during swing phase, and demonstrated x1 instance of LOB forward 2/2 decreased L foot clearance requiring modA from PT to recover balance. Pt responds to verbal cues; however, doesnt always sustain. Surface And Method: Indoor, Even surface Walk 10 Feet Assistance Needed: Physical assistance Physical Assistance Level: 25% or less CARE Score - Walk 10 Feet: 3 Walk 50 Feet with Two Turns Assistance Needed: Physical assistance Physical Assistance Level: 25% or less CARE Score - Walk 50 Feet with Two Turns: 3 Walk 150 Feet Reason if not Attempted: Safety concerns CARE Score - Walk 150 Feet: 88 Walking 10 Feet on Uneven Surfaces Reason if not Attempted: Safety concerns CARE Score - Walking 10 Feet on Uneven Surfaces: 88 Balance/Neuromuscular Re-Education Neuromuscular Re-Education Time Entry: 30 Activity Component(s) 1: Static, Dynamic, Standing Assistive Devices And Adaptive Equipments: Balloon, Other (specify) (4in step) Balance/Neuromuscular Re-Education Activity 1: Pt participated in activity with focus on forced use to LLE and standing balance using balloon and 4in step. Record Librarian present to perform balloon volleyball activity with pt. PT placed 4in step under pts RLE to force weight over LLE. Pt used RUE to assist with management of LUE during activity. Pt initially required mod-maxA to maintain standing balance with RLE on 4in step; however, with practice, pt able to complete activity with only Juancho for balance/steadying. Picking Up Object Assistance Needed: Physical assistance Physical Assistance Level: 25% or less Comment: using analytics manager CARE Score - Picking Up Object: 3 Patient Education: Education Documentation Gait, taught by Sarah Bailey, PT at 08/10/2024 2:45 PM. Learner: Patient Readiness: Acceptance Method: Explanation Response: Verbalizes Understanding, Needs Reinforcement, Demonstrated Understanding Education Comments No comments found. Goals: Encounter Goals Encounter Goals (Active) Rolling: mod-independent (Progressing) Start: 07/23/24 Expected End: 08/13/24 Goal Note Pt requires Juancho 2/3 Lying<>Sitting<>Lying: CGA/supervision with paris technique (Progressing) Start: 07/23/24 Expected End: 08/13/24 Goal Note Pt requires Juancho 2/3 Pt will participate in pre-gait activities emphasizing B LE activation, proper sequencing, midline orientation, reciprocal movements, and controlled WS to facilitate safe gait training. (Progressing) Start: 07/23/24 Expected End: 08/13/24 Pt will be tolerate ambulation > 100ft CGA with LRAD in order to address safe locomotion necessary for discharge to most appropriate location and return to functional activity. (Progressing) Start: 08/03/24 Expected End: 08/13/24 Within 2 weeks of starting therapy, the patient and/or family/caregiver will demonstrate independence and be compliant in a written HEP in order to maximize gains made during therapy. (Progressing) Start: 07/23/24 Expected End: 08/13/24 Pt and/or caregiver(s) will have all appropriate DME, recommendations, or completed prescriptions to maximize pt's safety and independence at discharge. (Progressing) Start: 07/23/24 Expected End: 08/13/24 Pt will be able to sit for at least 5 mins with support of no UE with midline orientation, erect posture, even KATY, appropriate WBing and ability to reach > 5" outside KATY without LOB to facilitate improved standing to return to functional tasks. (Progressing) Start: 07/23/24 Expected End: 08/13/24 Patient able to propel WC ~300ft supervision with B LE propulsion with appropriate safety awareness, midline orientation, and obstacle avoidance to facilitate safe community mobility. (Progressing) Start: 07/23/24 Expected End: 08/13/24 Encounter Goals (Resolved) Transfers: Juancho stand step with LRAD (Completed) Start: 07/23/24 Expected End: 08/13/24 Resolved: 08/09/24 Sit to Stand: CGA with LRAD (Completed) Start: 07/23/24 Expected End: 08/13/24 Resolved: 08/09/24 Sarah Bailey PT CAL RECEPTIONIST * Sheree Jasmine, OT - 08/10/2024 10:00 AM MEDICAL RECEPTIONIST Occupational Therapy Treatment Session Note Patient Name: Toney Martel Today's Date: 08/10/2024 Preferred Language: Guamanian Assessment & Plan Assessment: OT Assessment Results: Impaired ADL status, Impaired left upper extremity, Impaired functional mobility, Impaired fine motor control, Impaired safe judgment during ADL, Impaired upper extremity strength, Impaired upper extremity range of motion OT Assessment: Patient tolerated session very well and is making good progress towards goals for self-care. As of this session required Min A for bathing, however still requires Mod A for UB dressing due to limited LUE function and would benefit from further practice with paris dressing techniques. Still requires Max A for footwear management taking TLSO into account. Limitations at this time primarily include limited LUE function though patient actively tries to involve LUE in self-care as much as possible and is demonstrating effective compensatory techniques. Functional grasp still not achieved with LUE and will continue to address via NMR and reinforcement of self PROM exercises. Patient still displays some L sided inattention but responds well to cueing to heed environment and scan for obstacles. Upcoming sessions will emphasize NMR to maximize functional return of LUE Strengths: Attitude of self Barriers to Discharge: Severity of deficits, Medical diagnosis, Safety awareness Plan: OT Planned Treatments: Activities of Daily Living, Work simplification, Balance training, Coordination, Energy conservation training, Equipment training, Orthotic, Joint protection, Patient education, Safety education, Seating/Positioning, Therapeutic activities, Therapeutic exercises Subjective "I'm trying to make this one [LUE] work as much as possible." Objective 08/10/24 1000 Time Calculation Start Time 1000 Stop Time 1100 Time Calculation (min) 60 min Pain Assessment Pain Assessment 0-10 Pain Score 0 ADL Self Care/Home Management (ADLs) Time Entry 60 Assistive Devices And Adaptive Equipments Tub bench;Hand-held shower (head) UE Dressing Activity Component(s) Short sleeve shirt;Zip-up sweatshirt/jacket LE Dressing Activity Component(s) Pants;Underwear ADL Comments Peg tube site sealed with Press N Seal and paper tape prior to bathing; remained dry and intact with no new redness or irritation Bathing Activity Component(s) Face;Chest;Arm, left;Arm, right;Abdomen;Perineal area;Leg, left upper;Buttocks;Leg, right upper;Leg, right lower including foot;Leg, left lower including foot Bathing Location Shower Level of Assistance Partial/Mod assistance Bathing Comments Min A seated on tub bench in shower room; OT assisted with lower legs and feet Shower/Bathe Self Assistance Needed Physical assistance Physical Assistance Level 25% or less CARE Score - Shower/Bathe Self 3 Tub/Shower Transfers Transfer To/From Wheelchair;Tub bench Transfer Type Stand step Level of Assistance Partial/Mod assistance Assistive Devices And Adaptive Equipments No device Transfers Comments Min A with OT stabilizing LLE and tactile cueing to turn before descent to seat Upper Body Dressing Dressing Location/Position In chair Level of Assistance Partial/Mod assistance Comment Mod A overall with OT managing LUE and additional cueing to follow paris technique Upper Body Dressing Assistance Needed Physical assistance Physical Assistance Level 26%-50% CARE Score - Upper Body Dressing 3 Lower Body Dressing Dressing Location/Position In chair Level of Assistance Substantial/Max assistance Comment Max A overall; OT threaded BLE while patient seated on tub bench; patient able to pull up R side past hips with STS (Min A) Lower Body Dressing Assistance Needed Physical assistance Physical Assistance Level 51%-75% CARE Score - Lower Body Dressing 2 Footwear Dressing Activity Component(s) Compression hose/stockings;Socks;AFO;Shoes Dressing Location/Position In chair Level of Assistance Substantial/Max assistance Comment Max A; patient able to assist by pointing foot and pushing heel down into shoe Putting On/Taking Off Footwear Assistance Needed Physical assistance Physical Assistance Level 76% or more CARE Score - Putting On/Taking Off Footwear 2 Transfer 1 Level of Assistance 1 Partial/Mod assistance Trials/Comments 1 Min A with OT stabilizing LLE and tactile cueing for pre-positioning Transfer To/From [id number] Assistive Devices And Adaptive Equipments No device Patient Education: Education Documentation No documentation found. Education Comments No comments found. Goals: Encounter Goals Encounter Goals (Active) Patient will perform upper body dressing with wheelchair level with mod assist to improve independence with dressing. (Progressing) Start: 07/24/24 Expected End: 08/20/24 Patient will perform lower body dressing with analytics manager at wheelchair level with mod assist to improve independence with dressing. (Progressing) Start: 07/24/24 Expected End: 08/20/24 Within 2 weeks of starting therapy, the patient and/or family/caregiver will demonstrate independence and be compliant in a written HEP in order to maximize gains made during therapy. (Progressing) Start: 07/24/24 Expected End: 08/20/24 Pt and/or caregiver(s) will have all appropriate DME, recommendations, or completed prescriptions to maximize pt's safety and independence at discharge. (Progressing) Start: 07/24/24 Expected End: 08/20/24 Patient and/or caregivers will verbalize understanding of home program including safety tips, equipment instructions, and home exercises. (Progressing) Start: 07/24/24 Expected End: 08/20/24 Patient will participate in forced use activities using the affected upper extremity with min assistance to inhibit abnormal movement patterns. (Progressing) Start: 07/24/24 Expected End: 08/20/24 Patient will tolerate weight bearing through their effected upper extremity for 25-30 minutes with min assist. (Progressing) Start: 07/24/24 Expected End: 08/20/24 Sheree Jasmine, OT CAL RECEPTIONIST CAL RECEPTIONIST * Ange Roman CCC-JAVA SDET - 08/10/2024 9:30 AM MEDICAL RECEPTIONIST Speech-Language Pathology Treatment Note Patient Name: Toney Martel Today's Date: 08/10/2024 Preferred Language: Guamanian Assessment: Plan: Treatment Plan/Goals Established with Patient/Caregiver: Yes Barriers to Discharge: Insight into deficits, Complicated medical history Treatment/Interventions: Communication functioning, Swallow function, Patient/family education, Instrumental Assessments JAVA SDET Plan: Skilled JAVA SDET Frequency: 5-7 times per week Duration: 4 weeks JAVA SDET Discharge Recommendations: Home Health JAVA SDET NPO: No Swallow Precautions: Alternate liquids/solids, Clear pocketing, Feed only when alert, Oral hygiene after meals, Upright to 90 degrees, Small bites/sips Solid Consistency: Minced & Moist Liquid Viscosity: Thin Liquids Medications: Crushed in puree with MD approval Supervision Recommended: 1:1 Supervision Details: verbal and tactile cues to swallow, spoon down after each bite, alternate bites/sips, reduce distractions Compensatory Strategies for Dysphagia: Additional dry swallow(s) between bites/sips, Alternate solids and liquids, Slow rate, Small bites/sips, Oral hygiene, Position as upright as possible during oral intake, Remain upright after oral intake, Effortful swallow, Feed only when alert, Reduce environmental distractions during mealtimes Rehabilitation Exercises for Dysphagia Management: Effortful swallow, VERONICA (Effortful, intensive jaw opening exercise), Shaker and/or modified Shaker maneuver Therapeutic Recommendations: Dysphagia tx, Trials with JAVA SDET 08/10/24 0930Time Calculation Start Time 0930 Stop Time 1000 Time Calculation (min) 30 min Pain Assessment Pain Assessment DVPRS Pain Score 0 Pain Rating Scale (DVPRS) 0 Swallow Swallow Treatment Time 30 Swallow Activities mastication exercise PO trials Swallow Comments Pt assisted with affixing upper dentures using Fixodent and completed PO trials of reg cracker x2 with fxl mastication, min oral residue noted on weaker L side cleared with liquid wash and lingual sweep, no overt s/s aspiration noted Expression Score Expresses Complex or Abstract Information Without Prompting or Cueing No Expression Mode Vocal Expresses Complex or Abstract Ideas Relatively clearly Expresses Basic Daily Needs and Ideas Patient expresses basic daily needs and ideas 75% to 90% of the time Functional Cosby Measure Expression Minimal prompting - 4 Goals:Encounter Goals Encounter Goals (Active) STG - Patient will use speech intelligibility Intervention at conversational level (Progressing) Start: 07/24/24 Expected End: 08/04/24 LTG - Demonstrate reasoning (Progressing) Start: 07/24/24 Expected End: 08/21/24 LTG - Demonstrate visual scanning during a reading task (Progressing) Start: 07/24/24 Expected End: 08/21/24 LTG - Provides multi-step/complex solutions (Progressing) Start: 07/24/24 Expected End: 08/21/24 STG - Complete a 15-30 minute complex attention task (Progressing) Start: 07/24/24 Expected End: 08/21/24 STG - Demonstrate alternating attention by being able to shift the focus of attention between tasks/activities/ideas (Progressing) Start: 07/24/24 Expected End: 08/21/24 STG - Engage in deductive reasoning (Progressing) Start: 07/24/24 Expected End: 08/21/24 STG - Identify appropriate solutions to a problem (Progressing) Start: 07/24/24 Expected End: 08/21/24 STG - Identify cognitive/physical strengths and limitations (Progressing) Start: 07/24/24 Expected End: 08/21/24 LTG - Patient will improve on swallowing outcome measure (Progressing) Start: 07/24/24 Expected End: 08/21/24 STG - Improve airway protection (Progressing) Start: 07/24/24 Expected End: 08/21/24 STG - Improve bolus control (Progressing) Start: 07/24/24 Expected End: 08/21/24 STG - Increase the amount of food/liquid given by mouth while decreasing amount given by tube (Progressing) Start: 07/24/24 Expected End: 08/21/24 Encounter Goals (Resolved) STG - Participate in an instrumental swallow study (Completed) Start: 07/24/24 Expected End: 08/21/24 Resolved: 07/30/24 Ange Roman CCC-SLP CAL RECEPTIONIST * Sylvia Murillo - 08/09/2024 4:28 PM MEDICAL RECEPTIONIST SW received call from patient's son to discuss discharge planning. Pt's son had questions related to outpatient therapy and other discharge planning related questions. SW to place referral to outpatient therapy for patient of family's preference in the [place], [place] area. Pt called later as well asking for a referral to be resent to [facility]. DME consumer sales representative out, DAWNA sent referral on [facility]. DAWNA requested for additional family training with the patient's father, Pt's son will speak to his father and arrange a time he can bring him in for family training. CAL RECEPTIONIST * Sarah Bailey, PT - 08/09/2024 12:45 PM MEDICAL RECEPTIONIST Physical Therapy Treatment Session Note Patient Name: Toney Martel Today's Date: 08/09/2024 Preferred Language: Guamanian Assessment & Plan Assessment: PT Assessment: Pt tolerated sessions well without adverse effects. Pt appears to function primarily at Juancho with use of SBQC and L AFO at this time. Pts balance deficits and impaired righting reactions make pt a high fall risk. Based on pts average on TUG test, pt currently remains a HIGH fall risk at this time. Family training needs to be addressed with pts spouse and son prior to D/C. Plan: Treatment Plan/Goals Established with Patient/Caregiver: Yes PT Frequency: 5-7 times per week PT Discharge Recommendations: Inpatient rehab facility placement Equipment Recommended: DME wheelchair PT Planned Treatment: Balance training, Basic activities of daily living, Bed mobility training, Body weight support treadmill training, Caregiver training, Equipment training, Gait training, Group therapy, Manual therapy, Neuromuscular reeducation, Orthotic training, Patient education, Positioning, Posture/Body mechanics training, Seating, Stair training, Therapeutic activities, Therapeutic exercises, Transfer training, Wheelchair assessment and management Duration: 3-4 weeks Subjective Pt found semi bales in bed upon PT arrival for first session and agreeable to therapy. Upon completion of second session, pt left sitting up in WC with L AFO and t-belt donned, all needs met, call evans in reach, with tray table set up beside pt, and nsg notified of pt status. Current Problem: Refer to H&P Pain: Pain Assessment Pain Assessment: 0-10 (08/09/2024 1245) Pain Score: 0 (08/09/2024 1245) Vital Signs: Patient Vitals for the past 24 hrs: BP MAP (mmHg) Pulse Resp SpO2 08/09/2428 -- -- 57 18 97 % 08/09/24627 133/67 89 -- -- -- 08/08/24 2102 -- -- 61 16 96 % 08/08/24 2101 137/62 87 -- -- -- 08/08/24 1527 -- -- 71 18 95 % 08/08/24 1527 146/66 93 -- -- -- No data found. Health Conditions Health Conditions Pain Interference with Therapy Activities: Rarely or not at all Objective General Visit Information: General Amount of Missed Time (min): 15 Minutes Missed Time Reason: Other (Comment) (pt eating breakfast) Family/Caregiver Present: No Others Present: 1:1 present while pt eating breakfast; Record Librarian present x30min General Assessments: Activity Tolerance Endurance: Tolerates 30 min exercise with multiple rests Sitting Balance: Sits without support for more than 30 sec Treatment 08/09/24 0845 08/09/24 1245 PT Last Visit PT Received On 08/09/24 08/09/24 Response to Previous Treatment Patient with no complaints from previous session. Patient with no complaints from previous session. General Amount of Missed Time (min) 15 Minutes -- Missed Time Reason Other (Comment) (pt eating breakfast) -- Family/Caregiver Present No No Others Present 1:1 present while pt eating breakfast; Record Librarian present x30min -- Time Calculation Start Time 0845 1245 Stop Time 0930 1330 Time Calculation (min) 45 min 45 min Activity Tolerance Endurance Tolerates 30 min exercise with multiple rests Tolerates 30 min exercise with multiple rests Sitting Balance Sits without support for more than 30 sec Sits without support for more than 30 sec Pain Assessment Pain Assessment 0-10 0-10 Pain Score 0 0 Health Conditions Pain Interference with Therapy Activities Rarely or not at all Rarely or not at all Therapeutic Activity Therapeutic Activity Time Entry 30 -- Therapeutic Activity 1 Pt performed supine>sit transition with CGA-Juancho for trunk management with use of bedrails for support with HOB flat. Pt performed all sit<>stand transitions with CGA throughout session (occasionally required a couple of attempts to complete; however, always successful.) Pt performed all stand-step transfers with L AFO with Juancho for balance/steadying and safety (bed>WC, WC>toilet, toilet>WC.) Pt requested time to perform BM and void. Pt able to ambulate from WC>toilet using SBQC and L AFO with Juancho from PT for balance/steadying and verbal cues for improved L foot clearance intermittently. Pt able to perform toileting with spv and required Juancho from PT for pericare (to ensure pt was cleaned properly) and clothing management. Pt able to maintain standing balance with Juancho while performing dressing task with Juancho. After completion, pt able to ambulate back to WC using SBQC with Juancho. -- Roll Left and Right Assistance Needed Physical assistance -- Physical Assistance Level 25% or less -- CARE Score - Roll Left and Right 3 -- Lying to Sitting on Side of Bed Assistance Needed Physical assistance -- Physical Assistance Level 25% or less -- CARE Score - Lying to Sitting on Side of Bed 3 -- Sit to Lying Assistance Needed Physical assistance -- Physical Assistance Level 25% or less -- CARE Score - Sit to Lying 3 -- Chair/Oeq-xq-Joavx Transfer Assistance Needed Physical assistance -- Physical Assistance Level 25% or less -- CARE Score - Chair/Tfb-cj-Omdhv Transfer 3 -- Sit to Stand Assistance Needed Incidental touching -- Physical Assistance Level No physical assistance -- CARE Score - Sit to Stand 4 -- Car Transfer Reason if not Attempted Environmental limitations -- CARE Score - Car Transfer 10 -- Gait Training Gait Training Time Entry 15 30 Gait Training Activity Yes Yes Stairs Activity -- Yes Gait Training Activity 1 Distance (enter in feet) Pt participated in TUG test. Pt completed TUG test in an average time of 69.29sec. x25ft intervals x4reps Assistive Devices And Adaptive Equipments Cane, small based quad Cane, small based quad Level of Assistance 1 Partial/Mod assistance Partial/Mod assistance Gait Training Activity 1 Comment Pt ambulates with SBQC intermittently too far forward, head down, B foot flat, decreased foot clearance on LLE during swing phase intermittently, poor balance when navigating around turns requiring verbal/tactile cues to address, and demonstrated ~2 instances of LOB forward 2/2 decreased L foot clearance requiring modA from PT to recover balance. Pt ambulated along x25ft interval with focus on L foot clearance and proper management of SBQC. Pt with ~1-2 instances of LOB forward requiring modA from PT to correct. Surface And Method Indoor;Even surface Indoor;Even surface Gait Training Activity 2 Distance (enter in feet) Pt participated in 2min walk test. Pt able to ambulate x75ft during 2min time frame before requesting seated rest break in WC 2/2 fatigue. -- Assistive Devices And Adaptive Equipments Cane, small based quad -- Level of Assistance 2 Partial/Mod assistance -- Gait Training Activity 2 Comment Pt ambulates with same deficits listed above. Again, ~1-2 instances of LOB forward 2/2 L foot catching on ground during swing phase requiring modA from PT to recover balance. -- Surface And Method Indoor;Even surface -- Stairs Activity 1 Assistive Devices And Adaptive Equipments -- SBQC Step Height (inches) 1 -- 4 Level of Assistance 1 -- Partial/Mod assistance Stairs comment 1 -- Using portable wooden 4in step/curb, pt able to ascend/descend 4in step x6reps with PT providing Juancho for LLE management, balance/steadying, and safety. Pt demonstrated poor righting reactions and awareness when LOB was occuring with step/curb navigation requiring verbal and tactile cues to address. Did not progres to 6in step today as 4in step seemed to challenge pt. Number Of Stairs -- 1 Walk 10 Feet Assistance Needed Physical assistance -- Physical Assistance Level 25% or less -- CARE Score - Walk 10 Feet 3 -- Walk 50 Feet with Two Turns Assistance Needed Physical assistance -- Physical Assistance Level 25% or less -- CARE Score - Walk 50 Feet with Two Turns 3 -- Walk 150 Feet Reason if not Attempted Safety concerns -- CARE Score - Walk 150 Feet 88 -- Walking 10 Feet on Uneven Surfaces Reason if not Attempted Safety concerns -- CARE Score - Walking 10 Feet on Uneven Surfaces 88 -- 1 Step (Curb) Assistance Needed Physical assistance -- Physical Assistance Level 25% or less -- CARE Score - 1 Step (Curb) 3 -- 4 Steps Reason if not Attempted Safety concerns -- CARE Score - 4 Steps 88 -- 12 Steps Reason if not Attempted Safety concerns -- CARE Score - 12 Steps 88 -- Picking Up Object Assistance Needed Physical assistance -- Physical Assistance Level 25% or less -- Comment using analytics manager -- CARE Score - Picking Up Object 3 -- Wheelchair Activities Wheelchair Management Time Entry -- 15 Wheelchair Type -- Manual Level of Assistance -- Partial/Mod assistance Propulsion -- Yes Propulsion Type 1 -- Manual Level 1 -- Level Method 1 -- Right upper extremity;Manual LE propulsion Level of Assistance 1 -- Partial/Mod assistance Description/Details 1 -- Pt navigated WC around unit throughout session with Juancho for navigation along straight path, obstacle avoidance, and navigation around turns. Verbal cues used to improve use of LLE during activity. Wheel 50 Feet with Two Turns Assistance Needed Physical assistance -- Physical Assistance Level 25% or less -- CARE Score - Wheel 50 Feet with Two Turns 3 -- Type of Wheelchair/Scooter Manual -- Wheel 150 Feet Assistance Needed Physical assistance -- Physical Assistance Level 25% or less -- CARE Score - Wheel 150 Feet 3 -- Type of Wheelchair/Scooter Manual -- PT Assessment PT Assessment -- Pt tolerated sessions well without adverse effects. Pt appears to function primarily at Juancho with use of SBQC and L AFO at this time. Pts balance deficits and impaired righting reactions make pt a high fall risk. Based on pts average on TUG test, pt currently remains a HIGH fall risk at this time. Family training needs to be addressed with pts spouse and son prior to D/C. Outcome Measures: TUG: pt completed in an average time of 69.29sec using SBQC 2min walk test: x75ft using SBQC Patient Education: Education Documentation No documentation found. Education Comments No comments found. Goals: Encounter Goals Encounter Goals (Active) Rolling: mod-independent (Progressing) Start: 07/23/24 Expected End: 08/13/24 Goal Note Pt requires Juancho 2/3 Lying<>Sitting<>Lying: CGA/supervision with paris technique (Progressing) Start: 07/23/24 Expected End: 08/13/24 Goal Note Pt requires Juancho 2/3 Pt will participate in pre-gait activities emphasizing B LE activation, proper sequencing, midline orientation, reciprocal movements, and controlled WS to facilitate safe gait training. (Progressing) Start: 07/23/24 Expected End: 08/13/24 Pt will be tolerate ambulation > 100ft CGA with LRAD in order to address safe locomotion necessary for discharge to most appropriate location and return to functional activity. (Progressing) Start: 08/03/24 Expected End: 08/13/24 Within 2 weeks of starting therapy, the patient and/or family/caregiver will demonstrate independence and be compliant in a written HEP in order to maximize gains made during therapy. (Progressing) Start: 07/23/24 Expected End: 08/13/24 Pt and/or caregiver(s) will have all appropriate DME, recommendations, or completed prescriptions to maximize pt's safety and independence at discharge. (Progressing) Start: 07/23/24 Expected End: 08/13/24 Pt will be able to sit for at least 5 mins with support of no UE with midline orientation, erect posture, even KATY, appropriate WBing and ability to reach > 5" outside KATY without LOB to facilitate improved standing to return to functional tasks. (Progressing) Start: 07/23/24 Expected End: 08/13/24 Patient able to propel WC ~300ft supervision with B LE propulsion with appropriate safety awareness, midline orientation, and obstacle avoidance to facilitate safe community mobility. (Progressing) Start: 07/23/24 Expected End: 08/13/24 Encounter Goals (Resolved) Transfers: Juancho stand step with LRAD (Completed) Start: 07/23/24 Expected End: 08/13/24 Resolved: 08/09/24 Sit to Stand: CGA with LRAD (Completed) Start: 07/23/24 Expected End: 08/13/24 Resolved: 08/09/24 Sarah Bailey PT CAL RECEPTIONIST * Monet Blake MD - 08/09/2024 12:28 PM MEDICAL RECEPTIONIST Physical Medicine and Rehabilitation Progress Note - Daily Admission Date: 07/23/2024 SUBJECTIVE:NAEON; VSS; Patient seen sitting up in chair comfortably. She denies any pain. She reports doing well. No questions or concerns at this time. Last BM Date: 08/09/24Stool Appearance: Soft Stool Amount: Large Labs BMP:Results from last 7 days Lab Units 08/09/24 0614 CREATININE mg/dL 0.59 BUN mg/dL 11 SODIUM mEq/L 143 POTASSIUM mEq/L 4.4 CHLORIDE mEq/L 106 CO2 mEq/L 25.2 CBC:Results from last 7 days Lab Units 08/09/24 0614 WBC 10*3/uL 4.52 HEMOGLOBIN g/dL 11.4 HEMATOCRIT % 38.7 MCV fL 87.8 PLATELETS 10*3/uL 326 PTT:Coagulation: UA: No lab exists for component: "SPECGRAVU", "BLOODU", "LEUKOCYTESU"UC: No results found for the last 90 days. Filters applied: Specimen Type. BCX: No results found for the last 90 days.Filters applied: Specimen Type. PRNs in past 24 hours: VitalsVitals: 08/08/24 2102 08/09/24 0626 08/09/24 0628 08/09/24 0628 BP: 133/67 Pulse: 61 57 Resp: 16 18 Temp: 36.8 ?C (98.2 ?F) SpO2: 96% 97% Intake & OutputI/O last 3 completed shifts: In: - (0 mL/kg) Out: 650 (9.1 mL/kg) [Urine:650 (0.3 mL/kg/hr)] Weight: 71.8 kg MedicationsScheduled: aspirin, 81 mg, Daily atorvastatin, 80 mg, Nightly Docusate Sodium, 100 mg, BID Enteral Free water Flush, 240 mL, q6h gabapentin, 300 mg, TID heparin, 5,000 Units, q8h senna, 10 mL, Nightly PRNs:acetaminophen, 650 mg, q4h PRN bisacodyl, 10 mg, Nightly PRN dextrose, 12.5 g, Once PRN glucagon, 1 mg, Once PRN melatonin, 3 mg, Nightly PRN sodium chloride, 10 mL, PRN Physical Exam:Constitutional: No acute distress, appearing comfortable, pleasant, cooperative HEENT: NCAT, no scleral icterus, MMM. Cardiovascular: No lower limb edema. Lower limbs warm. Respiratory: Breathing comfortably on room air, no tachypnea. Gastrointestinal: Soft, non-distended abdomen. Genitourinary: No Edwards. Musculoskeletal: Full painless passive range of motion of bilateral upper and lower limbs. Skin: No rashes on limited exam of exposed areas. Psychiatric: No anxiety or agitation. Neurologic: awake, alert, left sided neglect, Dysarthria, L HF/KE 4/5 [facility] is a 78Y F PMH of HTN and carpal tunnel syndrome who was admitted on 07/15/24 on for evaluation of wake up L sided plegia, LFD and R gaze deviation. CTP w/ established M5/M6 region stroke, but 48ml volume in posterior parietal and occipital regions. Patient taken for emergent thrombectomy. within WAKE UP protocol window IAT TICI3. MRI showing R MCA/BIOINFORMATICS TECHNICIAN/SHAWANDA strokes. Failed FEES 07/20, PEG placed 07/22/23. Patient admitted to [facility] on 07/23/24. Acute ischemic right MCA stroke (HCC) - Suspected Etiology: Large artery atherosclerosis - CT: ASPECTS 6, hyperdense MCA - CTA: acute occlusion in R ICA and distal reconstitution of flow in MCA territory but M2 and P-com occlusion. - CTP: established M5/M6 region stroke, but 48ml volume in posterior parietal and occipital regions. - MRI brain w/o contrast R MCA/BIOINFORMATICS TECHNICIAN infarct - TTE- EF: 60-65%, atrium normal - Atorvastatin 80 mg daily - ASA 81 mg daily - monitor neurological status Impaired mobility and ADLsLeft hemiparesis - PT/OT following for strengthening, increased independence with mobility and ADLs, bowel and bladder management, DME evaluation, family training, improvement in balance deficits, improvement in endurance/exercise tolerance Cognitive communication deficitsDysarthria - Continue therapies with JAVA SDET for evaluation of language impairments and cognition - Neuropsychology consultation for cognition and mood Dysphagia- admitted as NPO, continue bolus Tfs and enteral FWF; no longer requiring TF -diet upgraded to ground/thins 07/30. - Continue therapies w/ JAVA SDET. 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 Straight cath if PVR > 200cc. Pain- Continue Tylenol as needed for nociceptive pain - 08/02 increase gabapentin to 300mg BID for ongoing neuropathic pain -08/05 inc omega to tid Skin- Recommend thorough skin evaluation as patient is at risk for pressure injuries. - If patient is unable to reliably change position independently, recommend every 4-6 hours turns to prevent skin breakdown, daily skin checks. Chronic medical co-morbidities:HTN: BP control, BP <140 HLD: statin Prophylaxis- DVT: SQH Follow-Ups [place] [facility] [place] 1 [place], [place] [facility] within 3 months for PEG tube, and PCP within 1-2 weeks. Cosigned by Salomon Rubio DO at 08/09/2024 1:57 PM MEDICAL RECEPTIONIST CAL RECEPTIONIST CAL RECEPTIONIST CAL RECEPTIONIST Associated attestation - Salomon Rubio DO - 08/09/2024 1:57 PM MEDICAL RECEPTIONIST I saw and evaluated the patient with the resident, participating in the kiran portions of the service. I reviewed the resident's note and agree with the documented findings and plan of care. Physical Medicine and Rehabilitation Attending Physician Attestation: I attest that I performed or was physically present during the kiran or critical portions of the service performed by the resident and actively participated in the management of the patient. I have reviewed the resident note and agree with the documented findings and plan of care with any exceptions noted below. I spent over 35 minutes caring for this patient today, reviewing labs andrecords from another provider, obtaining the history, performing the physical exam, documenting in the records and arranging for the following: [x] counseling/education on MANNY/SCI/injury [ ] ordering medications: [ ] [ ] ordering tests: [ ] [ ] ordering procedures: [ ] [ ] Consulting the following providers: [ ] [x] Documentation of clinical information [x] Independently interpreting clinical results of [ ] and communicating results to the patient/family/caregiver [x] Care coordination with therapy/SW/consultants Deedee Santoro #[id number] * Isa Howard CCC-JAVA SDET - 08/09/2024 11:30 AM MEDICAL RECEPTIONIST Speech-Language Pathology Treatment Note Patient Name: Toney Martel Today's Date: 08/09/2024 Preferred Language: Guamanian Assessment & Plan Assessment: Session Tolerance: Patient tolerated session well Plan: Treatment Plan/Goals Established with Patient/Caregiver: Yes Barriers to Discharge: Insight into deficits, Complicated medical history Treatment/Interventions: Communication functioning, Swallow function, Patient/family education, Instrumental Assessments JAVA SDET Plan: Skilled JAVA SDET Frequency: 5-7 times per week Duration: 4 weeks JAVA SDET Discharge Recommendations: Home Health JAVA SDET NPO: No Swallow Precautions: Alternate liquids/solids, Clear pocketing, Feed only when alert, Oral hygiene after meals, Upright to 90 degrees, Small bites/sips Solid Consistency: Minced & Moist Liquid Viscosity: Thin Liquids Medications: Crushed in puree with MD approval Supervision Recommended: 1:1 Supervision Details: verbal and tactile cues to swallow, spoon down after each bite, alternate bites/sips, reduce distractions Compensatory Strategies for Dysphagia: Additional dry swallow(s) between bites/sips, Alternate solids and liquids, Slow rate, Small bites/sips, Oral hygiene, Position as upright as possible during oral intake, Remain upright after oral intake, Effortful swallow, Feed only when alert, Reduce environmental distractions during mealtimes Rehabilitation Exercises for Dysphagia Management: Effortful swallow, VERONICA (Effortful, intensive jaw opening exercise), Shaker and/or modified Shaker maneuver Therapeutic Recommendations: Dysphagia tx, Trials with JAVA SDET Subjective Current Problem: Dysphagia and dysarthria s/p ICH CVA Pain: Pain Assessment Pain Assessment: 0-10 (08/09/2024 113) Pain Score: 0 (08/09/2024 113) Post-Therapy Intervention Pain Assessment: Objective Vital Signs: Patient Vitals for the past 24 hrs: BP MAP (mmHg) Pulse Resp SpO2 08/09/24 1550 -- -- 64 18 98 % 08/09/24 1548 (!) 162/71 (!) 101 -- -- -- 08/09/24 0628 -- -- 57 18 97 % 08/09/24 0628 133/67 89 -- -- -- 08/08/24 2102 -- -- 61 16 96 % 08/08/24 2101 137/62 87 -- -- -- Last Visit: Most Recent JAVA SDET Session: 08/08/24 General Visit Info: Others Present: ESCALATOR CONSTRUCTOR Euneece Treatment:Swallow: Swallow Treatment Time: 30 Swallow Activities: Mastication Swallow Comments: Patient seen for treatment focusing on dysphagia management targeting mastication. Upper denture not donned during session. Patient participated in PO trials of regular solids via bite sized nichole cracker pieces x10 with functional mastication. Patient with increased awareness and independently initiating lingual sweeps. Patient did not endorse any pain or being uncomfortable during mastication. Patient agreeable to utilizing denture gum to hold flapping denture in place next session to assess safest method to consume soft and bite sized solids. Patient adamant regarding diet texture advancement. Education related to current deficits and safety conducted. Comments: FIM Scores: Comprehension:Comprehends Complex or Abstract Information Without Prompting or Cueing: Yes Mode of Comprehension: Auditory Understands Complex or Abstract Directions and Conversations: Requires extra time Functional Cosby Measure Comprehension: Modified independence - 6 Expression:Expresses Complex or Abstract Information Without Prompting or Cueing: No Expression Mode: Vocal Expresses Basic Daily Needs and Ideas: Patient expresses basic daily needs and ideas 75% to 90% of the time Functional Cosby Measure Expression: Minimal prompting - 4 Social Interaction:Interacts Appropriately Without Supervision: Yes Interacts Appropriately: At all times Functional Cosby Measure Social Interaction: Complete independence - 7 Problem Solving:Solves Complex Problems: No Solves Routine Problems: Patient requires supervision to solve routine problems only under stressful or unfamiliar conditions, but no more than 10% of the time Functional Cosby Measure Problem Solving: Standby prompting - 5 Memory:Recognizes, Remembers Routines, and Executes Requests Without Prompting: No Remembers and Executes Requests With Prompting: Patient requires prompting only under stressful or unfamiliar conditions, but no more than 10% of the time Functional Cosby Measure Memory: Standby prompting - 5 Outcome Measures:FIMS/IDDSI Patient Education:Education Documentation No documentation found. Education Comments No comments found. Goals:Encounter Goals Encounter Goals (Active) STG - Patient will use speech intelligibility Intervention at conversational level (Progressing) Start: 07/24/24 Expected End: 08/04/24 LTG - Demonstrate reasoning (Progressing) Start: 07/24/24 Expected End: 08/21/24 LTG - Demonstrate visual scanning during a reading task (Progressing) Start: 07/24/24 Expected End: 08/21/24 LTG - Provides multi-step/complex solutions (Progressing) Start: 07/24/24 Expected End: 08/21/24 STG - Complete a 15-30 minute complex attention task (Progressing) Start: 07/24/24 Expected End: 08/21/24 STG - Demonstrate alternating attention by being able to shift the focus of attention between tasks/activities/ideas (Progressing) Start: 07/24/24 Expected End: 08/21/24 STG - Engage in deductive reasoning (Progressing) Start: 07/24/24 Expected End: 08/21/24 STG - Identify appropriate solutions to a problem (Progressing) Start: 07/24/24 Expected End: 08/21/24 STG - Identify cognitive/physical strengths and limitations (Progressing) Start: 07/24/24 Expected End: 08/21/24 LTG - Patient will improve on swallowing outcome measure (Progressing) Start: 07/24/24 Expected End: 08/21/24 STG - Improve airway protection (Progressing) Start: 07/24/24 Expected End: 08/21/24 STG - Improve bolus control (Progressing) Start: 07/24/24 Expected End: 08/21/24 STG - Increase the amount of food/liquid given by mouth while decreasing amount given by tube (Progressing) Start: 07/24/24 Expected End: 08/21/24 Encounter Goals (Resolved) STG - Participate in an instrumental swallow study (Completed) Start: 07/24/24 Expected End: 08/21/24 Resolved: 07/30/24 XIN SandovalSLP CAL RECEPTIONIST * ELEUTERIO Pantoja - 08/08/2024 1:00 PM MEDICAL RECEPTIONIST Speech-Language Pathology Treatment Note Patient Name: Toney Martel Today's Date: 08/08/2024 Preferred Language: Guamanian 08/08/24 1300 Time Calculation Start Time 1300 Stop Time 1400 Time Calculation (min) 60 min JAVA SDET Last Visit Most Recent JAVA SDET Session 08/07/24 Pain Assessment Pain Assessment 0-10 Pain Score 3 Pain Location Shoulder Swallow Swallow Treatment Time 30 Swallow Activities Dysphagia management/meal observation Swallow Comments Patient observed with IDDSI 5/0 lunch meal. Pt independently stated swallowing strategies before starting meal, but required occasional cues during meal for double swallows and alternating solids/liquids. Portions of boluses pocketed on L side, which pt cleared with cued double swallows and liquid washes. JAVA SDET recs: continue IDDSI 5/0 with 1:1 assistance. Speech/Voice Speech Treatment Time 30 Speech Activities speech intelligibility drills Speech Comments Reviewed SLOP speech strategies with pt. After review, pt utilized strategies during structured phrase and sentence level drills with mod-max verbal cues from JAVA SDET to improve intelligibility. With cues, pt's intelligibility is judged to be ~75%. CPOC. Comprehension Score Comprehends Complex or Abstract Information Without Prompting or Cueing Yes Mode of Comprehension Auditory Understands Complex or Abstract Directions and Conversations Requires extra time Functional Cosby Measure Comprehension Standby prompting - 5 Expression Score Expresses Complex or Abstract Information Without Prompting or Cueing Yes Expression Mode Vocal Expresses Complex or Abstract Ideas Relatively clearly Expresses Basic Daily Needs and Ideas Patient expresses basic daily needs and ideas more than 90% of the time requires prompting less than 10% of the time to be understood Functional Cosby Measure Expression Standby prompting - 5 Social Interaction Score Interacts Appropriately Without Supervision Yes Interacts Appropriately At all times Functional Cosby Measure Social Interaction Complete independence - 7 Problem Solving Score Solves Complex Problems Yes Ability to Solve Complex Problems Requires more than reasonable time to make decisions Solves Routine Problems Patient requires supervision to solve routine problems only under stressful or unfamiliar conditions, but no more than 10% of the time Functional Cosby Measure Problem Solving Standby prompting - 5 Memory Score Recognizes, Remembers Routines, and Executes Requests Without Prompting Yes Remembers and Executes Requests Consistently without need for repetition Remembers and Executes Requests With Prompting Patient requires prompting only under stressful or unfamiliar conditions, but no more than 10% of the time Functional Cosby Measure Memory Complete independence - 7 Assessment & Plan Assessment: Plan: Treatment Plan/Goals Established with Patient/Caregiver: Yes Barriers to Discharge: Insight into deficits, Complicated medical history Treatment/Interventions: Communication functioning, Swallow function, Patient/family education, Instrumental Assessments JAVA SDET Plan: Skilled JAVA SDET Frequency: 5-7 times per week Duration: 4 weeks JAVA SDET Discharge Recommendations: Home Health JAVA SDET NPO: No Swallow Precautions: Alternate liquids/solids, Clear pocketing, Feed only when alert, Oral hygiene after meals, Upright to 90 degrees, Small bites/sips Solid Consistency: Minced & Moist Liquid Viscosity: Thin Liquids Medications: Crushed in puree with MD approval Supervision Recommended: 1:1 Supervision Details: verbal and tactile cues to swallow, spoon down after each bite, alternate bites/sips, reduce distractions Compensatory Strategies for Dysphagia: Additional dry swallow(s) between bites/sips, Alternate solids and liquids, Slow rate, Small bites/sips, Oral hygiene, Position as upright as possible during oral intake, Remain upright after oral intake, Effortful swallow, Feed only when alert, Reduce environmental distractions during mealtimes Rehabilitation Exercises for Dysphagia Management: Effortful swallow, VERONICA (Effortful, intensive jaw opening exercise), Shaker and/or modified Shaker maneuver Therapeutic Recommendations: Dysphagia tx, Trials with JAVA SDET Subjective Current Problem:Dysphagia; dysarthria; cognitive-linguistic deficits Pain:Pain Assessment Pain Assessment: 0-10 (08/08/20241299) Pain Score: 3 (08/08/20241299) Pain Location: Shoulder (08/08/20241299) Post-Therapy Intervention Pain Assessment: Objective Vital Signs:Patient Vitals for the past 24 hrs: BP MAP (mmHg) Pulse Resp SpO2 08/08/24 0516 -- -- 57 -- 96 % 08/08/24 0515 (!) 131/58 82 -- -- -- 08/07/24 1936 -- -- 65 18 96 % 08/07/241935 143/67 92 -- -- -- 08/07/24 1610 -- -- 68 16 97 % 08/07/24 1610 (!) 161/74 (!) 103 -- -- -- Last Visit:Most Recent JAVA SDET Session: 08/07/24 General Visit Info: Treatment: Swallow: Swallow Treatment Time: 30 Swallow Activities: Dysphagia management/meal observation Swallow Comments: Patient observed with IDDSI 5/0 lunch meal. Pt independently stated swallowing strategies before starting meal, but required occasional cues during meal for double swallows and alternating solids/liquids. Portions of boluses pocketed on L side, which pt cleared with cued double swallows and liquid washes. JAVA SDET recs: continue IDDSI 5/0 with 1:1 assistance. Speech/Voice:Speech Treatment Time: 30 Speech Activities: speech intelligibility drills Speech Comments: Reviewed SLOP speech strategies with pt. After review, pt utilized strategies during structured phrase and sentence level drills with mod-max verbal cues from JAVA SDET to improve intelligibility. With cues, pt's intelligibility is judged to be ~75%. CPOC. Comments: FIM Scores: Comprehension:Comprehends Complex or Abstract Information Without Prompting or Cueing: Yes Mode of Comprehension: Auditory Understands Complex or Abstract Directions and Conversations: Requires extra time Functional Cosby Measure Comprehension: Standby prompting - 5 Expression:Expresses Complex or Abstract Information Without Prompting or Cueing: Yes Expression Mode: Vocal Expresses Complex or Abstract Ideas: Relatively clearly Expresses Basic Daily Needs and Ideas: Patient expresses basic daily needs and ideas more than 90% of the time requires prompting less than 10% of the time to be understood Functional Cosby Measure Expression: Standby prompting - 5 Social Interaction:Interacts Appropriately Without Supervision: Yes Interacts Appropriately: At all times Functional Cosby Measure Social Interaction: Complete independence - 7 Problem Solving:Solves Complex Problems: Yes Ability to Solve Complex Problems: Requires more than reasonable time to make decisions Solves Routine Problems: Patient requires supervision to solve routine problems only under stressful or unfamiliar conditions, but no more than 10% of the time Functional Cosby Measure Problem Solving: Standby prompting - 5 Memory:Recognizes, Remembers Routines, and Executes Requests Without Prompting: Yes Remembers and Executes Requests: Consistently without need for repetition Remembers and Executes Requests With Prompting: Patient requires prompting only under stressful or unfamiliar conditions, but no more than 10% of the time Functional Cosby Measure Memory: Complete independence - 7 Outcome Measures:See FIMS Patient Education:Education Documentation No documentation found. Education Comments No comments found. Goals:Encounter Goals Encounter Goals (Active) STG - Patient will use speech intelligibility Intervention at conversational level (Progressing) Start: 07/24/24 Expected End: 08/04/24 LTG - Demonstrate reasoning (Progressing) Start: 07/24/24 Expected End: 08/21/24 LTG - Demonstrate visual scanning during a reading task (Progressing) Start: 07/24/24 Expected End: 08/21/24 LTG - Provides multi-step/complex solutions (Progressing) Start: 07/24/24 Expected End: 08/21/24 STG - Complete a 15-30 minute complex attention task (Progressing) Start: 07/24/24 Expected End: 08/21/24 STG - Demonstrate alternating attention by being able to shift the focus of attention between tasks/activities/ideas (Progressing) Start: 07/24/24 Expected End: 08/21/24 STG - Engage in deductive reasoning (Progressing) Start: 07/24/24 Expected End: 08/21/24 STG - Identify appropriate solutions to a problem (Progressing) Start: 07/24/24 Expected End: 08/21/24 STG - Identify cognitive/physical strengths and limitations (Progressing) Start: 07/24/24 Expected End: 08/21/24 LTG - Patient will improve on swallowing outcome measure (Progressing) Start: 07/24/24 Expected End: 08/21/24 STG - Improve airway protection (Progressing) Start: 07/24/24 Expected End: 08/21/24 STG - Improve bolus control (Progressing) Start: 07/24/24 Expected End: 08/21/24 STG - Increase the amount of food/liquid given by mouth while decreasing amount given by tube (Progressing) Start: 07/24/24 Expected End: 08/21/24 Encounter Goals (Resolved) STG - Participate in an instrumental swallow study (Completed) Start: 07/24/24 Expected End: 08/21/24 Resolved: 07/30/24 Wilma Guerrier CCC-SLP CAL RECEPTIONIST * Blue Streeter MD - 08/08/2024 10:53 AM MEDICAL RECEPTIONIST PM&R Progress Note Subjective No acute events reported by nursing Objective Last Recorded VitalsBlood pressure (!) 131/58, pulse 57, temperature 36.8 ?C (98.2 ?F), resp. rate 18, height 1.575 m (5' 2.01"), weight 71.8 kg (158 lb 3.2 oz), SpO2 96%. Physical Exam:Gen: NAD Resp: no labored breathing Abd: ND CV: good perfusion noted Current Active Medicationsaspirin, 81 mg, Per G Tube, Daily atorvastatin, 80 mg, Nasogastric, Nightly Docusate Sodium, 100 mg, Per G Tube, BID Enteral Free water Flush, 240 mL, Per PEG Tube, q6h gabapentin, 300 mg, Per G Tube, TID heparin, 5,000 Units, Subcutaneous, q8h senna, 10 mL, Per G Tube, Nightly PRN medications: acetaminophen, bisacodyl, dextrose, glucagon, melatonin, sodium chloride Lab ResultsResults from last 7 days Lab Units 08/05/24 0512 08/02/24 0409 WBC 10*3/uL 4.26 4.61 HEMOGLOBIN g/dL 10.9 10.7* HEMATOCRIT % 35.8 35.6 PLATELETS 10*3/uL 353 385 Results from last 7 daysLab Units 08/05/24 0512 08/02/24 0409 SODIUM mEq/L 143 143 POTASSIUM mEq/L 4.1 4.6* CHLORIDE mEq/L 107 108* CO2 mEq/L 26.2 22.6 BUN mg/dL 15 14 CREATININE mg/dL 0.59 0.56 GLUCOSE mg/dL 97 101* CALCIUM mg/dL 8.5 8.6 Assessment & PlanCVA (cerebrovascular accident due to intracerebral hemorrhage) (HCC) Stable, no changes in poc once more. Primary hypertension Stable, no changes in poc once more. Hyperlipidemia DysarthriaStable, no changes in poc once more. Dysphagia Stable, no changes in poc once more. Hemiplegia (CMS/HCC) (HCC) Stable, no changes in poc once more. VTE prophylaxis: heparin - 5000 units/mL In caring for this patient today, i have reviewed labs, i have reviewed records from another provider/associate team physician, obtained the history, performed the physical exam, documented the records and arranged for the following: [X ] Addressed at least two chronic conditions as outlined above[X] Management and treatment of moderate risk morbidity significantly limited by social determinants of health [ ] counseling/education[ ] ordering medications: [ ] [ ] ordering tests: [ ] [ ] ordering procedures: [ ] [ ] Consulting the following providers: [ ] [x] Documentation of clinical information [ ] Independently interpreting clinical results of [ ] and communicating results to the patient/family/caregiver [ ] Care coordination/discussion of management with therapy/CM/consultants Blue Streeter MD CAL RECEPTIONIST * Zayra Gentile, OT - 08/07/2024 4:17 PM MEDICAL RECEPTIONIST Treatment Session Note Patient Name: Toney Martel Today's Date: 08/07/2024 Preferred Language: Guamanian Assessment & Plan Assessment: OT Assessment Results: Impaired ADL status, Impaired upper extremity range of motion, Impaired upper extremity strength, Impaired safe judgment during ADL, Impaired cognition, Impaired endurance, Impaired fine motor control, Impaired functional mobility, Impaired gross motor control, Impaired left upper extremity, Impaired trunk control for functional activities OT Assessment: pt tolerated session to Fair level. K-tape on L shoulder continues to demonstrate good support and no signs of irriation. With continued reports of L shoulder pain with therapsit encouraging support of L UE in resting positions to decrease subluxation risk. Potentailly may benefit from GivMohor vs ottobock since return is present however does not demonstrate distal return for functioanl grasp on RW leaving L UE unsupport. Pt is continuing to progress with functional stand step transfers to min A. Static standing balance improving to TA-Min A allowing for her to utilize R UE to assist wtih LBD and standing level ADLs. Continues to require encouragement to incoproate L UE into ADLs and transfers to continue to encourage neuro Return. Noted slight wrist volitional wrist extension ~10% of movement and some 1/5 digit flexion. Will continue benefit from intensive neuro Re-ed to continue to promote functional return. Noted Pt reports limited hand closure on dominant sound R side which at times does inhibit her functional grasp and activities. Will continue to follow. Prognosis: Good Evaluation/Treatment Tolerance: Patient tolerated treatment well Strengths: Attitude of self Barriers to Discharge: Insight into deficits Plan: Treatment Plan/Goals Established with Patient/Caregiver: Yes Treatment Interventions: ADL retraining, Cognitive reorientation, Endurance training, Neuromuscular reeducation, Orthotic/Orthotic management, Patient/family training, Scar management OT Plan: Skilled OT OT Frequency: 5-7 times per week Equipment Recommended: DME wheelchair, Wheelchair- seat cushion pressure reducing, Wheelchair- accessories, Wheelchair- back OT Planned Treatments: Activities of Daily Living, Neuromuscular reeducation, Balance training, Coordination, Equipment training, Joint protection, Home program, Orthotic, Patient education, Safety education, Seating/Positioning, Therapeutic activities, Therapeutic exercises, Splinting, Caregiver training, Work simplification, Energy conservation training OT Duration: 1-2 weeks Subjective "I am getting better." Pain: Continued report of L shoulder pain, however slightly improved with K-tape support. Pain alleviated with UE support. Vital Signs: Patient Vitals for the past 12 hrs: BP MAP (mmHg) Pulse Resp SpO2 08/07/24 1610 -- -- 68 16 97 % 08/07/24 1610 (!) 161/74 (!) 103 -- -- -- 08/07/24 0630 -- -- 57 18 95 % 08/07/24 0629 (!) 133/55 81 -- -- -- No data found. Objective 08/07/24 1140 Time Calculation Start Time 1140 Stop Time 1240 Time Calculation (min) 60 min ADL Self Care/Home Management (ADLs) Time Entry 30 UE Dressing Activity Component(s) Short sleeve shirt ADL Comments First part of session focused on AdL training reinforcing modifications, safety, and functioanl mobiltiy transfers. See below for details of ADLs. Shower/Bathe Self Assistance Needed Physical assistance;Incidental touching;Verbal cues Physical Assistance Level 26%-50% Comment not observed today completed in previous session. CARE Score - Shower/Bathe Self 3 Grooming Grooming Comments Encouraged Pt to stand at sink to work on standing balance, WB and midline oreintation. Therapist assisted at shoulder for Pt to engage L UE in hand washing task. CGA for standign balance. Activity Component(s) Washing hands Grooming Location Sink Level of Assistance Partial/Mod assistance Oral Hygiene Assistance Needed Physical assistance Physical Assistance Level 25% or less Comment Not observed today completed in previous session. CARE Score - Oral Hygiene 3 Upper Body Dressing Dressing Location/Position In wheelchair Level of Assistance Partial/Mod assistance Comment Sitting in WC therapist reinforced paris technique for doffing/donning of shirt. Pt able to complete task with Mod A. Upper Body Dressing Assistance Needed Physical assistance;Verbal cues Physical Assistance Level 26%-50% CARE Score - Upper Body Dressing 3 Lower Body Dressing Assistance Needed Physical assistance Physical Assistance Level 26%-50% Comment Not observed today completed in previous session . CARE Score - Lower Body Dressing 3 Putting On/Taking Off Footwear Assistance Needed Physical assistance;Verbal cues Physical Assistance Level 51%-75% Comment Pt able to assist with R shoe donning Mod A. Required total A for donning L shoe/AFO CARE Score - Putting On/Taking Off Footwear 2 Eating Assistance Needed Supervision;Verbal cues Physical Assistance Level No physical assistance Comment Not observed today , score taken from previous session. CARE Score - Eating 4 Toileting Activity Component(s) Managing clothing before;Managing clothing after;Perineal hygiene, front Level of Assistance Partial/Mod assistance Comment pt transferred to toilet from onto [facility] frame over toilet. With Min-TA support Pt is able to manage pants up<>down with mostly R UE. Verbal cues to encourge Pt to utilize L UE to push down pants and incorporate L UE. Pt able to complete continent bladder episode and perform her own hygiene with SPV-setup. REturned to standing position with Mod-partial A. And partial A for standing balance so she can complete 75% of her pull up. Assistance required for L side. Toileting Position/Set Up On toilet Toileting Hygiene Assistance Needed Incidental touching;Physical assistance;Verbal cues;Supervision Physical Assistance Level 25% or less CARE Score - Toileting Hygiene 3 Toilet Transfers Toilet Transfer To/From Wheelchair;Bed side commode;Drop arm commode Transfer Type Stand step Level of Assistance Partial/Mod assistance Assistive Devices And Adaptive Equipments Bed side commode Toilet Transfers Comments BSC placed over toilet seat. Pt completed stand step transition with partial A. Toilet Transfer Assistance Needed Physical assistance;Incidental touching;Verbal cues;Supervision Physical Assistance Level 25% or less CARE Score - Toilet Transfer 3 Transfer 1 Level of Assistance 1 Partial/Mod assistance Trials/Comments 1 Pt completed several Sit<>stand transitions for transfers, toileting hygiene and LBD. All completed with partial-TA. partial-Mod A for standing balance during sustained standing balance ADLs( LBD, hand hygiene at sink). Transfer To/From [id number] Transfers 2 Technique 2 Stand step Level of Assistance 2 Partial/Mod assistance Transfer To/From Wheelchair;Mat Therapeutic Procedures Time Entry Neuromuscular Re-Education Time Entry 30 Balance/Neuromuscular Re-Education Balance/Neuromuscular Re-Education Activity 1 Mat table use of square PVC pipe worked on functioanl grasp and ROM with bimanual activity. Pt sat at EO mat table. With therapist supporting grasp of L UE Pt completed 4x12 chest presses with PVC pipe. 3x5 10 sec isometric holds with therapist imposing moderate resistance (both anterior and posterior resistance to allow for push and pull exercise.) Position 1 Seated Balance/Neuromuscular Re-Education Activity 2 Use of tall walking stick completed hand climbs with theapist assisting with finger flexion and functional grasp around stick. Pt was able to complete shoulder flexion for hand placment. Completed [id number]. With same stick placed in horizontal position Pt enocuraged to complete wrist ext exersies of (reving bike) with therapist completing AAROM on L UE. Noted ~10% AROM noted in L wrist. Completed 3x10. Position 2 Seated Post session: Pt left bed side in WC, with needs met, items in reach and handed off to staffing coordinator. T-belt donned and call light tin reach of R UE. Patient Education: Education Documentation No documentation found. Education Comments No comments found. Goals: Encounter Goals Encounter Goals (Active) Patient will perform upper body dressing with wheelchair level with mod assist to improve independence with dressing. (Progressing) Start: 07/24/24 Expected End: 08/20/24 Patient will perform lower body dressing with analytics manager at wheelchair level with mod assist to improve independence with dressing. (Progressing) Start: 07/24/24 Expected End: 08/20/24 Within 2 weeks of starting therapy, the patient and/or family/caregiver will demonstrate independence and be compliant in a written HEP in order to maximize gains made during therapy. (Progressing) Start: 07/24/24 Expected End: 08/20/24 Pt and/or caregiver(s) will have all appropriate DME, recommendations, or completed prescriptions to maximize pt's safety and independence at discharge. (Progressing) Start: 07/24/24 Expected End: 08/20/24 Patient and/or caregivers will verbalize understanding of home program including safety tips, equipment instructions, and home exercises. (Progressing) Start: 07/24/24 Expected End: 08/20/24 Patient will participate in forced use activities using the affected upper extremity with min assistance to inhibit abnormal movement patterns. (Progressing) Start: 07/24/24 Expected End: 08/20/24 Patient will tolerate weight bearing through their effected upper extremity for 25-30 minutes with min assist. (Progressing) Start: 07/24/24 Expected End: 08/20/24 Zayra Gentile OT CAL RECEPTIONIST * Kalie Acevedo CCC-JAVA SDET - 08/07/2024 1:00 PM MEDICAL RECEPTIONIST Speech-Language Pathology Treatment Note Patient Name: Toney Martel Today's Date: 08/07/2024 Preferred Language: Guamanian Assessment & Plan Assessment: JAVA SDET Assessment Results: Cognitive-Linguistic impairment, Executive function deficit Session Tolerance: Patient tolerated session well Strengths: Support of extended family/friends Plan: Treatment Plan/Goals Established with Patient/Caregiver: Yes Barriers to Discharge: Insight into deficits, Complicated medical history Treatment/Interventions: Communication functioning, Swallow function, Patient/family education, Instrumental Assessments JAVA SDET Plan: Skilled JAVA SDET Frequency: 5-7 times per week Duration: 4 weeks JAVA SDET Discharge Recommendations: Home Health JAVA SDET NPO: No Swallow Precautions: Alternate liquids/solids, Clear pocketing, Feed only when alert, Oral hygiene after meals, Upright to 90 degrees, Small bites/sips Solid Consistency: Minced & Moist Liquid Viscosity: Thin Liquids Medications: Crushed in puree with MD approval Supervision Recommended: 1:1 Supervision Details: verbal and tactile cues to swallow, spoon down after each bite, alternate bites/sips, reduce distractions Compensatory Strategies for Dysphagia: Additional dry swallow(s) between bites/sips, Alternate solids and liquids, Slow rate, Small bites/sips, Oral hygiene, Position as upright as possible during oral intake, Remain upright after oral intake, Effortful swallow, Feed only when alert, Reduce environmental distractions during mealtimes Rehabilitation Exercises for Dysphagia Management: Effortful swallow, VERONICA (Effortful, intensive jaw opening exercise), Shaker and/or modified Shaker maneuver Therapeutic Recommendations: Dysphagia tx, Trials with JAVA SDET Subjective : Pt alert/awake seen in in office. Current Problem: Dysphagia and dysarthria s/p ICH CVA Pain: Pain Assessment Pain Assessment: DVPRS (08/07/20241299) Pain Score: 0 (08/07/20241299) Pain Rating Scale (DVPRS): No pain (08/07/20241299) Post-Therapy Intervention Pain Assessment: Objective Vital Signs: Patient Vitals for the past 24 hrs: BP MAP (mmHg) Pulse Resp SpO2 08/07/24 0630 -- -- 57 18 95 % 08/07/24 0629 (!) 133/55 81 -- -- -- 08/06/242036 -- -- 59 18 96 % 08/06/242035 137/71 93 -- -- -- 08/06/242005 -- -- 70 -- 99 % Treatment: Speech/Voice: Speech/Voice Treatment: 15 minutes Speech/Voice Training Activities: Dysarthria Strategies Intelligibility was judged to be 90% intelligible within structured sentences, requiring moderate verbal cues to utilize strategies in conversation speech. Cognitive-Linguistic Skills: Cognitive-Linguistic Skills Treatment Time: 15 Cognitive-Linguistic Training Activities: Recall of Intelligibility strategies; visual scanning Cognitive Skills Comments: Pt required max visual and gestural cues to support visual scanning during reading task. During a simple crossword puzzle, pt benefited from moderate to max visual and gestural cues, requiring increased support as task progressed secondary to increased visual information. Pt recalled 3/4 speech intelligibility strategies FIM Scores: Comprehension: Comprehends Complex or Abstract Information Without Prompting or Cueing: Yes Mode of Comprehension: Auditory Understands Complex or Abstract Directions and Conversations: Requires extra time Functional Cosby Measure Comprehension: Modified independence - 6 Expression: Expresses Complex or Abstract Information Without Prompting or Cueing: Yes Expression Mode: Vocal Expresses Complex or Abstract Ideas: Relatively clearly Expresses Basic Daily Needs and Ideas: Patient expresses basic daily needs and ideas more than 90% of the time requires prompting less than 10% of the time to be understood Functional Cosby Measure Expression: Standby prompting - 5 Social Interaction: Interacts Appropriately Without Supervision: Yes Interacts Appropriately: At all times Functional Cosby Measure Social Interaction: Complete independence - 7 Problem Solving: Solves Complex Problems: Yes Ability to Solve Complex Problems: Requires more than reasonable time to make decisions Solves Routine Problems: Patient requires supervision to solve routine problems only under stressful or unfamiliar conditions, but no more than 10% of the time Functional Cosby Measure Problem Solving: Standby prompting - 5 Memory: Recognizes, Remembers Routines, and Executes Requests Without Prompting: Yes Remembers and Executes Requests: Consistently without need for repetition Remembers and Executes Requests With Prompting: Patient requires prompting only under stressful or unfamiliar conditions, but no more than 10% of the time Functional Cosby Measure Memory: Standby prompting - 5 Patient Education: Education Documentation No documentation found. Education Comments No comments found. Goals: Encounter Goals Encounter Goals (Active) STG - Patient will use speech intelligibility Intervention at conversational level (Progressing) Start: 07/24/24 Expected End: 08/04/24 LTG - Demonstrate reasoning (Progressing) Start: 07/24/24 Expected End: 08/21/24 LTG - Demonstrate visual scanning during a reading task (Progressing) Start: 07/24/24 Expected End: 08/21/24 LTG - Provides multi-step/complex solutions (Progressing) Start: 07/24/24 Expected End: 08/21/24 STG - Complete a 15-30 minute complex attention task (Progressing) Start: 07/24/24 Expected End: 08/21/24 STG - Demonstrate alternating attention by being able to shift the focus of attention between tasks/activities/ideas (Progressing) Start: 07/24/24 Expected End: 08/21/24 STG - Engage in deductive reasoning (Progressing) Start: 07/24/24 Expected End: 08/21/24 STG - Identify appropriate solutions to a problem (Progressing) Start: 07/24/24 Expected End: 08/21/24 STG - Identify cognitive/physical strengths and limitations (Progressing) Start: 07/24/24 Expected End: 08/21/24 LTG - Patient will improve on swallowing outcome measure (Progressing) Start: 07/24/24 Expected End: 08/21/24 STG - Improve airway protection (Progressing) Start: 07/24/24 Expected End: 08/21/24 STG - Improve bolus control (Progressing) Start: 07/24/24 Expected End: 08/21/24 STG - Increase the amount of food/liquid given by mouth while decreasing amount given by tube (Progressing) Start: 07/24/24 Expected End: 08/21/24 Encounter Goals (Resolved) STG - Participate in an instrumental swallow study (Completed) Start: 07/24/24 Expected End: 08/21/24 Resolved: 07/30/24 Kalie Acevedo CCC-SLP CAL RECEPTIONIST * Bule Streeter MD - 08/07/2024 10:57 AM MEDICAL RECEPTIONIST PM&R Progress Note Subjective No acute events reported by nursing Objective Last Recorded VitalsBlood pressure (!) 133/55, pulse 57, temperature 36.9 ?C (98.5 ?F), resp. rate 18, height 1.575 m (5' 2.01"), weight 71.8 kg (158 lb 4.6 oz), SpO2 95%. Physical Exam:Gen: NAD Resp: no labored breathing Abd: ND CV: good perfusion noted Current Active Medicationsaspirin, 81 mg, Per G Tube, Daily atorvastatin, 80 mg, Nasogastric, Nightly Docusate Sodium, 100 mg, Per G Tube, BID Enteral Free water Flush, 240 mL, Per PEG Tube, q6h gabapentin, 300 mg, Per G Tube, TID heparin, 5,000 Units, Subcutaneous, q8h senna, 10 mL, Per G Tube, Nightly PRN medications: acetaminophen, bisacodyl, dextrose, glucagon, melatonin, sodium chloride Lab ResultsResults from last 7 days Lab Units 08/05/24 0512 08/02/24 0409 WBC 10*3/uL 4.26 4.61 HEMOGLOBIN g/dL 10.9 10.7* HEMATOCRIT % 35.8 35.6 PLATELETS 10*3/uL 353 385 Results from last 7 daysLab Units 08/05/24 0512 08/02/24 0409 SODIUM mEq/L 143 143 POTASSIUM mEq/L 4.1 4.6* CHLORIDE mEq/L 107 108* CO2 mEq/L 26.2 22.6 BUN mg/dL 15 14 CREATININE mg/dL 0.59 0.56 GLUCOSE mg/dL 97 101* CALCIUM mg/dL 8.5 8.6 Assessment & PlanCVA (cerebrovascular accident due to intracerebral hemorrhage) (HCC) Primary hypertension Hyperlipidemia Dysarthria Dysphagia Hemiplegia (CMS/HCC) (HCC) VTE prophylaxis: heparin - 5000 units/mL In caring for this patient today, i have reviewed labs, i have reviewed records from another provider/associate team physician, obtained the history, performed the physical exam, documented the records and arranged for the following: [X ] Addressed at least two chronic conditions as outlined above[X] Management and treatment of moderate risk morbidity significantly limited by social determinants of health [ ] counseling/education[ ] ordering medications: [ ] [ ] ordering tests: [ ] [ ] ordering procedures: [ ] [ ] Consulting the following providers: [ ] [x] Documentation of clinical information [ ] Independently interpreting clinical results of [ ] and communicating results to the patient/family/caregiver [ ] Care coordination/discussion of management with therapy/CM/consultants Blue Streeter MD CAL RECEPTIONIST * Isa Howard CCC-JAVA SDET - 08/06/2024 4:20 PM MEDICAL RECEPTIONIST Speech-Language Pathology Treatment Note Patient Name: Toney Martel Today's Date: 08/06/2024 Preferred Language: Guamanian Assessment & Plan Assessment: Tolerated session well however advancement of diet textures not recommended at this time. Continue minced and moist solids until mastication and bolus formation/control improves. Plan: Treatment Plan/Goals Established with Patient/Caregiver: Yes Barriers to Discharge: Insight into deficits, Complicated medical history Treatment/Interventions: Communication functioning, Swallow function, Patient/family education, Instrumental Assessments JAVA SDET Plan: Skilled JAVA SDET Frequency: 5-7 times per week Duration: 4 weeks JAVA SDET Discharge Recommendations: Home Health JAVA SDET NPO: No Swallow Precautions: Alternate liquids/solids, Clear pocketing, Feed only when alert, Oral hygiene after meals, Upright to 90 degrees, Small bites/sips Solid Consistency: Minced & Moist Liquid Viscosity: Thin Liquids Medications: Crushed in puree with MD approval Supervision Recommended: 1:1 Supervision Details: verbal and tactile cues to swallow, spoon down after each bite, alternate bites/sips, reduce distractions Compensatory Strategies for Dysphagia: Additional dry swallow(s) between bites/sips, Alternate solids and liquids, Slow rate, Small bites/sips, Oral hygiene, Position as upright as possible during oral intake, Remain upright after oral intake, Effortful swallow, Feed only when alert, Reduce environmental distractions during mealtimes Rehabilitation Exercises for Dysphagia Management: Effortful swallow, VERONICA (Effortful, intensive jaw opening exercise), Shaker and/or modified Shaker maneuver Therapeutic Recommendations: Dysphagia tx, Trials with JAVA SDET Subjective Current Problem: Dysphagia and dysarthria s/p ICH CVA Pain: Pain Assessment Pain Assessment: DVPRS (08/06/2024 1620) Pain Rating Scale (DVPRS): No pain (08/06/2024 1620) Post-Therapy Intervention Pain Assessment: Objective Vital Signs: Patient Vitals for the past 24 hrs: BP MAP (mmHg) Pulse Resp SpO2 08/06/24 1550 -- -- 61 18 97 % 08/06/24 1548 159/76 (!) 104 -- -- -- 08/06/24 0620 -- -- 56 15 96 % 08/06/24 0619 (!) 133/57 82 -- -- -- 08/05/24 1942 -- -- 64 15 94 % 08/05/241941 (!) 123/53 76 -- -- -- Last Visit: Most Recent JAVA SDET Session: 08/05/24 General Visit Info: Family/Caregiver Present: No Treatment:Swallow: Swallow Treatment Time: 30 Swallow Activities: Meal Observation-Soft and Bite Sized Solids Swallow Comments: Patient observed with dinner meal of soft and bite sized solids and thin liquids. JAVA SDET assisted with donning of upper denture. Patient does not like denture glue. Throughout trials of SB6 solids, denture with flapping impacting mastication. Majority of bolus pocketed on left side. Patient not initiating lingual sweeps to bring bolus to right side as instructed. Advancement of diet textures not safe at this time 2/2 decreased sensation and bolus manipulation. Continue mastication trials with JAVA SDET only. Comments: FIM Scores: Comprehension:Comprehends Complex or Abstract Information Without Prompting or Cueing: Yes Mode of Comprehension: Auditory Understands Complex or Abstract Directions and Conversations: Requires extra time Functional Cosby Measure Comprehension: Modified independence - 6 Expression:Expresses Complex or Abstract Information Without Prompting or Cueing: No Expression Mode: Vocal Expresses Basic Daily Needs and Ideas: Patient expresses basic daily needs and ideas more than 90% of the time requires prompting less than 10% of the time to be understood Functional Cosby Measure Expression: Standby prompting - 5 Social Interaction:Interacts Appropriately Without Supervision: Yes Interacts Appropriately: Requires more than reasonable time to make decisions Functional Cosby Measure Social Interaction: Modified independence - 6 Problem Solving:Solves Complex Problems: No Solves Routine Problems: Patient requires supervision to solve routine problems only under stressful or unfamiliar conditions, but no more than 10% of the time Functional Cosby Measure Problem Solving: Standby prompting - 5 Memory:Recognizes, Remembers Routines, and Executes Requests Without Prompting: No Remembers and Executes Requests With Prompting: Patient requires prompting only under stressful or unfamiliar conditions, but no more than 10% of the time Functional Cosby Measure Memory: Standby prompting - 5 Outcome Measures:IDDSI Patient Education:Education Documentation No documentation found. Education Comments No comments found. Goals:Encounter Goals Encounter Goals (Active) STG - Patient will use speech intelligibility Intervention at conversational level (Progressing) Start: 07/24/24 Expected End: 08/04/24 LTG - Demonstrate reasoning (Progressing) Start: 07/24/24 Expected End: 08/21/24 LTG - Demonstrate visual scanning during a reading task (Progressing) Start: 07/24/24 Expected End: 08/21/24 LTG - Provides multi-step/complex solutions (Progressing) Start: 07/24/24 Expected End: 08/21/24 STG - Complete a 15-30 minute complex attention task (Progressing) Start: 07/24/24 Expected End: 08/21/24 STG - Demonstrate alternating attention by being able to shift the focus of attention between tasks/activities/ideas (Progressing) Start: 07/24/24 Expected End: 08/21/24 STG - Engage in deductive reasoning (Progressing) Start: 07/24/24 Expected End: 08/21/24 STG - Identify appropriate solutions to a problem (Progressing) Start: 07/24/24 Expected End: 08/21/24 STG - Identify cognitive/physical strengths and limitations (Progressing) Start: 07/24/24 Expected End: 08/21/24 LTG - Patient will improve on swallowing outcome measure (Progressing) Start: 07/24/24 Expected End: 08/21/24 STG - Improve airway protection (Progressing) Start: 07/24/24 Expected End: 08/21/24 STG - Improve bolus control (Progressing) Start: 07/24/24 Expected End: 08/21/24 STG - Increase the amount of food/liquid given by mouth while decreasing amount given by tube (Progressing) Start: 07/24/24 Expected End: 08/21/24 Encounter Goals (Resolved) STG - Participate in an instrumental swallow study (Completed) Start: 07/24/24 Expected End: 08/21/24 Resolved: 07/30/24 Isa Howard CCC-SLP CAL RECEPTIONIST * Monet Blake MD - 08/06/2024 11:39 AM MEDICAL RECEPTIONIST Physical Medicine and Rehabilitation Progress Note - Daily Admission Date: 07/23/2024 SUBJECTIVE:RON[place]ON; VSS; Patient seen working with therapy. She endorses some tingling and heaviness in her LUE but overall is doing well. No questions or concerns at this time. Last BM Date: 08/05/24Stool Appearance: Soft, Formed Stool Amount: Large Labs BMP:Results from last 7 days Lab Units 08/05/24 0512 CREATININE mg/dL 0.59 BUN mg/dL 15 SODIUM mEq/L 143 POTASSIUM mEq/L 4.1 CHLORIDE mEq/L 107 CO2 mEq/L 26.2 CBC:Results from last 7 days Lab Units 08/05/24 0512 WBC 10*3/uL 4.26 HEMOGLOBIN g/dL 10.9 HEMATOCRIT % 35.8 MCV fL 87.5 PLATELETS 10*3/uL 353 PTT:Coagulation: UA: No lab exists for component: "SPECGRAVU", "BLOODU", "LEUKOCYTESU"UC: No results found for the last 90 days. Filters applied: Specimen Type. BCX: No results found for the last 90 days.Filters applied: Specimen Type. PRNs in past 24 hours: VitalsVitals: 08/05/242 08/06/24 0618 08/06/24 0619 08/06/24 0620 BP: (!) 133/57 Pulse: 64 56 Resp: 15 15 Temp: 36.6 ?C (97.9 ?F) SpO2: 94% 96% Intake & OutputI/O last 3 completed shifts: In: - (0 mL/kg) Out: 700 (9.7 mL/kg) [Urine:700 (0.3 mL/kg/hr)] Weight: 71.8 kg MedicationsScheduled: aspirin, 81 mg, Daily atorvastatin, 80 mg, Nightly Docusate Sodium, 100 mg, BID Enteral Free water Flush, 240 mL, q6h Fibersource HN, 375 mL, 4x daily gabapentin, 300 mg, TID heparin, 5,000 Units, q8h senna, 10 mL, Nightly PRNs:acetaminophen, 650 mg, q4h PRN bisacodyl, 10 mg, Nightly PRN dextrose, 12.5 g, Once PRN glucagon, 1 mg, Once PRN melatonin, 3 mg, Nightly PRN sodium chloride, 10 mL, PRN Physical Exam:Constitutional: No acute distress, appearing comfortable, pleasant, cooperative HEENT: NCAT, no scleral icterus, MMM. Cardiovascular: No lower limb edema. Lower limbs warm. Respiratory: Breathing comfortably on room air, no tachypnea. Gastrointestinal: Soft, non-distended abdomen. Genitourinary: No Edwards. Musculoskeletal: Full painless passive range of motion of bilateral upper and lower limbs. Skin: No rashes on limited exam of exposed areas. Psychiatric: No anxiety or agitation. Neurologic: awake, alert, left sided neglect, Dysarthria, L HF/KE 4/5 [facility] is a 78Y F PMH of HTN and carpal tunnel syndrome who was admitted on 07/15/24 on for evaluation of wake up L sided plegia, LFD and R gaze deviation. CTP w/ established M5/M6 region stroke, but 48ml volume in posterior parietal and occipital regions. Patient taken for emergent thrombectomy. within WAKE UP protocol window IAT TICI3. MRI showing R MCA/BIOINFORMATICS TECHNICIAN/SHAWANDA strokes. Failed FEES 07/20, PEG placed 07/22/23. Patient admitted to [facility] on 07/23/24. Acute ischemic right MCA stroke (HCC) - Suspected Etiology: Large artery atherosclerosis - CT: ASPECTS 6, hyperdense MCA - CTA: acute occlusion in R ICA and distal reconstitution of flow in MCA territory but M2 and P-com occlusion. - CTP: established M5/M6 region stroke, but 48ml volume in posterior parietal and occipital regions. - MRI brain w/o contrast R MCA/BIOINFORMATICS TECHNICIAN infarct - TTE- EF: 60-65%, atrium normal - Atorvastatin 80 mg daily - ASA 81 mg daily - monitor neurological status Impaired mobility and ADLsLeft hemiparesis - PT/OT following for strengthening, increased independence with mobility and ADLs, bowel and bladder management, DME evaluation, family training, improvement in balance deficits, improvement in endurance/exercise tolerance Cognitive communication deficitsDysarthria - Continue therapies with JAVA SDET for evaluation of language impairments and cognition - Neuropsychology consultation for cognition and mood Dysphagia- admitted as NPO, continue bolus Tfs and enteral FWF -diet upgraded to ground/thins 07/30. - Continue therapies w/ JAVA SDET. 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 Straight cath if PVR > 200cc. Pain- Continue Tylenol as needed for nociceptive pain - 08/02 increase gabapentin to 300mg BID for ongoing neuropathic pain -08/05 inc omega to tid Skin- Recommend thorough skin evaluation as patient is at risk for pressure injuries. - If patient is unable to reliably change position independently, recommend every 4-6 hours turns to prevent skin breakdown, daily skin checks. Chronic medical co-morbidities:HTN: BP control, BP <140 HLD: statin Prophylaxis- DVT: SQH Follow-Ups Please [place] up [place] [facility] [place] 1 [place], [place] [facility] within 3 months for PEG tube, and PCP within 1-2 weeks. Cosigned by Salomon Rubio DO at 08/06/2024 1:23 PM MEDICAL RECEPTIONIST CAL RECEPTIONIST CAL RECEPTIONIST Associated attestation - Salomon Rubio DO - 08/06/2024 1:23 PM MEDICAL RECEPTIONIST I saw and evaluated the patient with the resident, participating in the kiran portions of the service. I reviewed the resident's note and agree with the documented findings and plan of care. Physical Medicine and Rehabilitation Attending Physician Attestation: I attest that I performed or was physically present during the kiran or critical portions of the service performed by the resident and actively participated in the management of the patient. I have reviewed the resident note and agree with the documented findings and plan of care with any exceptions noted below. Pt seen during OT, amb with [facility], OT to try [facility]. She continues to have neuropathic pain in LUE, told her we increased the omega dose yesterday. I spent over 35 minutes caring for this patient today, reviewing labs andrecords from another provider, obtaining the history, performing the physical exam, documenting in the records and arranging for the following: [x] counseling/education on MANNY/SCI/injury [ ] ordering medications: [ ] [ ] ordering tests: [ ] [ ] ordering procedures: [ ] [ ] Consulting the following providers: [ ] [x] Documentation of clinical information [x] Independently interpreting clinical results of [ ] and communicating results to the patient/family/caregiver [x] Care coordination with therapy/SW/consultants Deedee Santoro #[id number] * Isa Howard [facility] - 08/06/2024 11:30 AM MEDICAL RECEPTIONIST Speech-Language Pathology Treatment Note Patient Name: Toney Martel Today's Date: 08/06/2024 Preferred Language: Guamanian Assessment & Plan Assessment: Tolerated session well. Plan: Treatment Plan/Goals Established with Patient/Caregiver: Yes Barriers to Discharge: Insight into deficits, Complicated medical history Treatment/Interventions: Communication functioning, Swallow function, Patient/family education, Instrumental Assessments JAVA SDET Plan: Skilled JAVA SDET Frequency: 5-7 times per week Duration: 4 weeks JAVA SDET Discharge Recommendations: Home Health JAVA SDET NPO: No Swallow Precautions: Alternate liquids/solids, Clear pocketing, Feed only when alert, Oral hygiene after meals, Upright to 90 degrees, Small bites/sips Solid Consistency: Minced & Moist Liquid Viscosity: Thin Liquids Medications: Crushed in puree with MD approval Supervision Recommended: 1:1 Supervision Details: verbal and tactile cues to swallow, spoon down after each bite, alternate bites/sips, reduce distractions Compensatory Strategies for Dysphagia: Additional dry swallow(s) between bites/sips, Alternate solids and liquids, Slow rate, Small bites/sips, Oral hygiene, Position as upright as possible during oral intake, Remain upright after oral intake, Effortful swallow, Feed only when alert, Reduce environmental distractions during mealtimes Rehabilitation Exercises for Dysphagia Management: Effortful swallow, VERONICA (Effortful, intensive jaw opening exercise), Shaker and/or modified Shaker maneuver Therapeutic Recommendations: Dysphagia tx, Trials with JAVA SDET Subjective Current Problem: Dysphagia and dysarthria s/p ICH CVA Pain: Pain Assessment Pain Assessment: DVPRS (08/06/2024 1130) Pain Rating Scale (DVPRS): No pain (08/06/2024 1130) Post-Therapy Intervention Pain Assessment: Objective Vital Signs: Patient Vitals for the past 24 hrs: BP MAP (mmHg) Pulse Resp SpO2 08/06/24 1550 -- -- 61 18 97 % 08/06/24 1548 159/76 (!) 104 -- -- -- 08/06/24 0620 -- -- 56 15 96 % 08/06/24 0619 (!) 133/57 82 -- -- -- 08/05/24 1942 -- -- 64 15 94 % 08/05/241941 (!) 123/53 76 -- -- -- Last Visit: Most Recent JAVA SDET Session: 08/05/24 General Visit Info: Family/Caregiver Present: No Treatment:Swallow: Swallow Treatment Time: 30 Swallow Activities: Meal Observation Swallow Comments: Patient seen for meal observation with lunch meal. JAVA SDET advanced solids to IDDSI soft and bite sized solids in AM upon arrival. Despite changes to order and meal ticket printed with updated diet, minced and moist solids were delivered. Patient consumed 100% of meal with minimal s/s of aspiration. Patient observed talking with food in mouth, decreased sensation on left side of oral cavity, and anterior spillage of solids t/o meal. Patient instructed to conduct lingual sweeps, swallow hard, and alternate bites/sips. JAVA SDET to f/u for dinner meal. Comments: FIM Scores: Comprehension:Comprehends Complex or Abstract Information Without Prompting or Cueing: Yes Mode of Comprehension: Auditory Understands Complex or Abstract Directions and Conversations: Requires extra time Functional Cosby Measure Comprehension: Modified independence - 6 Expression:Expresses Complex or Abstract Information Without Prompting or Cueing: No Expression Mode: Vocal Expresses Basic Daily Needs and Ideas: Patient expresses basic daily needs and ideas more than 90% of the time requires prompting less than 10% of the time to be understood Functional Cosby Measure Expression: Standby prompting - 5 Social Interaction:Interacts Appropriately Without Supervision: Yes Interacts Appropriately: Requires more than reasonable time to make decisions Functional Cosby Measure Social Interaction: Modified independence - 6 Problem Solving:Solves Complex Problems: No Solves Routine Problems: Patient requires supervision to solve routine problems only under stressful or unfamiliar conditions, but no more than 10% of the time Functional Cosby Measure Problem Solving: Standby prompting - 5 Memory:Recognizes, Remembers Routines, and Executes Requests Without Prompting: No Remembers and Executes Requests With Prompting: Patient requires prompting only under stressful or unfamiliar conditions, but no more than 10% of the time Functional Cosby Measure Memory: Standby prompting - 5 Outcome Measures:IDDSI Patient Education:Education Documentation No documentation found. Education Comments No comments found. Goals:Encounter Goals Encounter Goals (Active) STG - Patient will use speech intelligibility Intervention at conversational level (Progressing) Start: 07/24/24 Expected End: 08/04/24 LTG - Demonstrate reasoning (Progressing) Start: 07/24/24 Expected End: 08/21/24 LTG - Demonstrate visual scanning during a reading task (Progressing) Start: 07/24/24 Expected End: 08/21/24 LTG - Provides multi-step/complex solutions (Progressing) Start: 07/24/24 Expected End: 08/21/24 STG - Complete a 15-30 minute complex attention task (Progressing) Start: 07/24/24 Expected End: 08/21/24 STG - Demonstrate alternating attention by being able to shift the focus of attention between tasks/activities/ideas (Progressing) Start: 07/24/24 Expected End: 08/21/24 STG - Engage in deductive reasoning (Progressing) Start: 07/24/24 Expected End: 08/21/24 STG - Identify appropriate solutions to a problem (Progressing) Start: 07/24/24 Expected End: 08/21/24 STG - Identify cognitive/physical strengths and limitations (Progressing) Start: 07/24/24 Expected End: 08/21/24 LTG - Patient will improve on swallowing outcome measure (Progressing) Start: 07/24/24 Expected End: 08/21/24 STG - Improve airway protection (Progressing) Start: 07/24/24 Expected End: 08/21/24 STG - Improve bolus control (Progressing) Start: 07/24/24 Expected End: 08/21/24 STG - Increase the amount of food/liquid given by mouth while decreasing amount given by tube (Progressing) Start: 07/24/24 Expected End: 08/21/24 Encounter Goals (Resolved) STG - Participate in an instrumental swallow study (Completed) Start: 07/24/24 Expected End: 08/21/24 Resolved: 07/30/24 XIN SandovalSLP CAL RECEPTIONIST * CHHAYA Gray - 08/06/2024 10:00 AM MEDICAL RECEPTIONIST Treatment Session Note Patient Name: Toney Martel Today's Date: 08/06/2024 Preferred Language: Guamanian Assessment & Plan Assessment: OT Assessment Results: Impaired ADL status, Impaired upper extremity range of motion, Impaired upper extremity strength, Impaired safe judgment during ADL, Impaired cognition, Impaired endurance, Increased pain, Impaired functional mobility, Impaired fine motor control, Impaired gross motor control, Visual deficit OT Assessment: Pt tolerated todays session well. Pt continues to show activation and volitional movement in the proximal LUE during functional tasks and benefitted from e-stim in todays session. Pt demonstrated improved tolerance in standing during self care and gross motor activities. Pt is somewhat limited by some neuropathic pain in the L arm but is still attempting to use it. Pt had some complaints of pain in the L arm and the OT was consulted and assessed. The OT taped the deltoid to support the muscle in attempt to alievate some pain. After 20 minutes the taped area had no signs of redness or irritation. Pt continues to benefit form OT services to maximize saftey and independence in functional activities. Prognosis: Good Evaluation/Treatment Tolerance: Patient tolerated treatment well Medical Staff Made Aware: Yes Strengths: Attitude of self, Coping skills, Support of extended family/friends Barriers to Discharge: Insight into deficits Plan: Treatment Plan/Goals Established with Patient/Caregiver: Yes Treatment Interventions: ADL retraining, Cognitive reorientation, Endurance training, Neuromuscular reeducation, Orthotic/Orthotic management, Patient/family training, Scar management OT Plan: Skilled OT OT Frequency: 5-7 times per week Equipment Recommended: DME wheelchair, Wheelchair- seat cushion pressure reducing, Wheelchair- accessories, Wheelchair- back OT Planned Treatments: Activities of Daily Living, Neuromuscular reeducation, Balance training, Coordination, Equipment training, Joint protection, Home program, Orthotic, Patient education, Safety education, Seating/Positioning, Therapeutic activities, Therapeutic exercises, Splinting, Caregiver training, Work simplification, Energy conservation training OT Duration: 1-2 weeks Subjective Pt tolerated the session fair. Pt reported some pain in the LUE which was assessed by the OT. Pain: Pain Assessment Pain Assessment: DVPRS (08/06/20241329) Pain Score: 3 (08/06/20241329) Pain Rating Scale (DVPRS): Sometimes distracts me (08/06/20241329) Pain Type: Neuropathic pain (08/06/20241329) Pain Location: Arm (08/06/20241329) Pain Orientation: Left (08/06/20241329) Response to Interventions: YOUNG and ANTWON consulted with the OT. OT assessed and taped the L deltoid to help support the muscle. After 20 minutes to redness or irratation was noted. (08/06/20241329) ] Vital Signs: Patient Vitals for the past 12 hrs: BP MAP (mmHg) Pulse Resp SpO2 08/06/24 1550 -- -- 61 18 97 % 08/06/24 1548 159/76 (!) 104 -- -- -- 08/06/24 0620 -- -- 56 15 96 % 08/06/24 0619 (!) 133/57 82 -- -- -- No data found. Objective 08/06/24 1000 08/06/24 1330 Time Calculation Start Time 1000 1330 Stop Time 1100 1400 Time Calculation (min) 60 min 30 min Pain Assessment Pain Assessment DVPRS DVPRS Pain Score 3 3 Pain Rating Scale (DVPRS) 3 3 Pain Type -- Neuropathic pain Pain Location -- Arm Pain Orientation -- Left Response to Interventions -- YOUNG and ANTWON consulted with the OT. OT assessed and taped the L deltoid to help support the muscle. After 20 minutes to redness or irratation was noted. ADL Self Care/Home Management (ADLs) Time Entry 20 -- Grooming Grooming Comments Pt required Min A to support the L arm to assist in holding the cup while she brushed her teeth. Pt required [place] to place the cup onto the placeholder with the L hand. Pt required Min A for standing balance at the sink. -- Activity Component(s) Oral hygiene;Washing hands -- Grooming Location Sink -- Level of Assistance Partial/Mod assistance -- Oral Hygiene Assistance Needed Physical assistance -- Physical Assistance Level 25% or less -- CARE Score - Oral Hygiene 3 -- Toileting Activity Component(s) Managing clothing before;Managing clothing after;Perineal hygiene, front;Perineal hygiene, back -- Level of Assistance Partial/Mod assistance -- Comment Pt practiced ambulating to the bathroom with the quad-cane and performed her front perineal hygiene due to urine voiding with SPV. Pt used a lateral lean to practive reaching her buttocks to perform hygiene with CGA. Pt managed clothing over the hips with Min A due to pulling up over the hips on the posterior side. Overal pt is Min A for tolieting. -- Toileting Position/Set Up On toilet -- Toileting Hygiene Assistance Needed Physical assistance -- Physical Assistance Level 25% or less -- CARE Score - Toileting Hygiene 3 -- Toilet Transfers Toilet Transfer To/From Wheelchair;Toilet -- Transfer Type Via walking -- Level of Assistance Partial/Mod assistance -- Assistive Devices And Adaptive Equipments Cane, large base quad -- Toilet Transfers Comments Pt required Min-Mod A for cueing to shift and move her L foot to step in front of the toliet and take steps back before sitting down. -- Toilet Transfer Assistance Needed Physical assistance -- Physical Assistance Level 25% or less -- Comment pt ambulated with a large base quad cane. VIDAL spoke with RIGGING ENGINEER and will use small base quad cane next session. -- CARE Score - Toilet Transfer 3 -- Transfers Transfer Yes -- Transfer 1 Technique 1 Via walking -- Level of Assistance 1 Partial/Mod assistance -- Trials/Comments 1 Pt ambulated with a large base quad cane with Min-Mod A for balance and saftey on the L side. VIDAL spoke with RIGGING ENGINEER and will use small base quad cane next session. -- Transfer To/From [id number];Wheelchair -- Assistive Devices And Adaptive Equipments Cane, large base quad -- Therapeutic Procedures Time Entry Neuromuscular Re-Education Time Entry 40 30 Balance/Neuromuscular Re-Education Balance/Neuromuscular Re-Education Activity 1 Pt stood at table top with therapist at L side blocking the LLE for support. Pt used the LUE to reach for beanbags scattered across the table on the L side to work on visual scanning and was instructed to reach for a specific color. Pt was able to take side steps to the L to reach some beanbags with the L hand and was able to take side steps to the R to slide L hand over to push beanbags intothe basket. When reaching to the L side the pt was cued to weightshift back to midline and has showed improvement in recognizing and realigning to midline faster. Therapist performed E-stim on the L dorsal forearm for activation of flexion of the distal LUE during a functional task to slat pickler [address] in the basket. Pt showed some activation distally with the E-stim and showed some improvement in ability to grasp the ball. Position 1 Standing Seated Balance/Neuromuscular Re-Education Activity 2 Pt sat in w/c and work on wrist extention, pronation and supination while reaching for beanbags to improve gross motor function in the LUE to place beanbag into the basket sitting on the table which requied activiation and volition of the proximal LUE. Pt was able to lift L arm off of the table up to 2 seconds at a time but continues to have minimal activation distally which prevents an adequate grasp on the dowell bag to pick it up. -- Position 2 Seated -- OT Assessment OT Assessment Results -- Impaired ADL status;Impaired upper extremity range of motion;Impaired upper extremity strength;Impaired safe judgment during ADL;Impaired cognition;Impaired endurance;Increased pain;Impaired functional mobility;Impaired fine motor control;Impaired gross motor control;Visual deficit OT Assessment -- Pt tolerated todays session well. Pt continues to show activation and volitional movement in the proximal LUE during functional tasks and benefitted from e-stim in todays session. Pt demonstrated improved tolerance in standing during self care and gross motor activities. Pt is somewhat limited by some neuropathic pain in the L arm but is still attempting to use it. Pt had some complaints of pain in the L arm and the OT was consulted and assessed. The OT taped the deltoid to support the muscle in attempt to alievate some pain. After 20 minutes the taped area had no signs of redness or irritation. Pt continues to benefit form OT services to maximize saftey and independence in functional activities. Prognosis -- Good Evaluation/Treatment Tolerance -- Patient tolerated treatment well Medical Staff Made Aware -- Yes Strengths -- Attitude of self;Coping skills;Support of extended family/friends Barriers to Discharge -- Insight into deficits Patient Education: Education Documentation No documentation found. Education Comments No comments found. Goals: Encounter Goals Encounter Goals (Active) Patient will perform upper body dressing with wheelchair level with mod assist to improve independence with dressing. (Progressing) Start: 07/24/24 Expected End: 08/20/24 Patient will perform lower body dressing with analytics manager at wheelchair level with mod assist to improve independence with dressing. (Progressing) Start: 07/24/24 Expected End: 08/20/24 Within 2 weeks of starting therapy, the patient and/or family/caregiver will demonstrate independence and be compliant in a written HEP in order to maximize gains made during therapy. (Progressing) Start: 07/24/24 Expected End: 08/20/24 Pt and/or caregiver(s) will have all appropriate DME, recommendations, or completed prescriptions to maximize pt's safety and independence at discharge. (Progressing) Start: 07/24/24 Expected End: 08/20/24 Patient and/or caregivers will verbalize understanding of home program including safety tips, equipment instructions, and home exercises. (Progressing) Start: 07/24/24 Expected End: 08/20/24 Patient will participate in forced use activities using the affected upper extremity with min assistance to inhibit abnormal movement patterns. (Progressing) Start: 07/24/24 Expected End: 08/20/24 Patient will tolerate weight bearing through their effected upper extremity for 25-30 minutes with min assist. (Progressing) Start: 07/24/24 Expected End: 08/20/24 Supervising Security Researcher: YOUNG Mai Update/change in Plan of Care was communicated with Certified Security Researcher/Security Researcher. CHHAYA Gray Cosigned by Mallory Lyman OT at 08/07/2024 10:56 AM CST CAL RECEPTIONIST CAL RECEPTIONIST * Mallory Lyman OT - 08/06/2024 10:00 AM MEDICAL RECEPTIONIST Treatment Session Note Patient Name: Toney Martel Today's Date: 08/07/2024 Preferred Language: Guamanian 08/06/24 1000 Time Calculation Start Time 1000 Stop Time 1100 Time Calculation (min) 60 min Pain Assessment Pain Assessment DVPRS Pain Score 3 Pain Rating Scale (DVPRS) 3 ADL Self Care/Home Management (ADLs) Time Entry 20 Grooming Grooming Comments Pt required Min A to support the L arm to assist in holding the cup while she brushed her teeth. Pt required [place] to place the cup onto the placeholder with the L hand. Pt required Min A for standing balance at the sink. Activity Component(s) Oral hygiene;Washing hands Grooming Location Sink Level of Assistance Partial/Mod assistance Oral Hygiene Assistance Needed Physical assistance Physical Assistance Level 25% or less CARE Score - Oral Hygiene 3 Toileting Activity Component(s) Managing clothing before;Managing clothing after;Perineal hygiene, front;Perineal hygiene, back Level of Assistance Partial/Mod assistance Comment Pt practiced ambulating to the bathroom with the quad-cane and performed her front perineal hygiene due to urine voiding with SPV. Pt used a lateral lean to practive reaching her buttocks to perform hygiene with CGA. Pt managed clothing over the hips with Min A due to pulling up over the hips on the posterior side. Overal pt is Min A for tolieting. Toileting Position/Set Up On toilet Toileting Hygiene Assistance Needed Physical assistance Physical Assistance Level 25% or less CARE Score - Toileting Hygiene 3 Toilet Transfers Toilet Transfer To/From Wheelchair;Toilet Transfer Type Via walking Level of Assistance Partial/Mod assistance Assistive Devices And Adaptive Equipments Cane, large base quad Toilet Transfers Comments Pt required Min-Mod A for cueing to shift and move her L foot to step in front of the toliet and take steps back before sitting down. Toilet Transfer Assistance Needed Physical assistance Physical Assistance Level 25% or less Comment pt ambulated with a large base quad cane. VIDAL spoke with RIGGING ENGINEER and will use small base quad cane next session. CARE Score - Toilet Transfer 3 Transfers Transfer Yes Transfer 1 Technique 1 Via walking Level of Assistance 1 Partial/Mod assistance Trials/Comments 1 Pt ambulated with a large base quad cane with Min-Mod A for balance and saftey on the L side. VIDAL spoke with RIGGING ENGINEER and will use small base quad cane next session. Transfer To/From [id number];Wheelchair Assistive Devices And Adaptive Equipments Cane, large base quad Therapeutic Procedures Time Entry Neuromuscular Re-Education Time Entry 40 Balance/Neuromuscular Re-Education Balance/Neuromuscular Re-Education Activity 1 Pt stood at table top with therapist at L side blocking the LLE for support. Pt used the LUE to reach for beanbags scattered across the table on the L side to work on visual scanning and was instructed to reach for a specific color. Pt was able to take side steps to the L to reach some beanbags with the L hand and was able to take side steps to the R to slide L hand over to push beanbags into the basket. When reaching to the L side the pt was cued to weightshift back to midline and has showed improvement in recognizing and realigning to midline faster. Position 1 Standing Balance/Neuromuscular Re-Education Activity 2 Pt sat in w/c and work on wrist extention, pronation and supination while reaching for beanbags to improve gross motor function in the LUE to place beanbag into the basket sitting on the table which requied activiation and volition of the proximal LUE. Pt was able to lift L arm off of the table up to 2 seconds at a time but continues to have minimal activation distally which prevents an adequate grasp on the dowell bag to pick it up. Position 2 Seated Assessment & Plan Assessment: Plan: Treatment Plan/Goals Established with Patient/Caregiver: Yes Treatment Interventions: ADL retraining, Cognitive reorientation, Endurance training, Neuromuscular reeducation, Orthotic/Orthotic management, Patient/family training, Scar management OT Plan: Skilled OT OT Frequency: 5-7 times per week Equipment Recommended: DME wheelchair, Wheelchair- seat cushion pressure reducing, Wheelchair- accessories, Wheelchair- back OT Planned Treatments: Activities of Daily Living, Neuromuscular reeducation, Balance training, Coordination, Equipment training, Joint protection, Home program, Orthotic, Patient education, Safety education, Seating/Positioning, Therapeutic activities, Therapeutic exercises, Splinting, Caregiver training, Work simplification, Energy conservation training OT Duration: 1-2 weeks Subjective Pain: Vital Signs:Patient Vitals for the past 12 hrs: BP MAP (mmHg) Pulse Resp SpO2 08/07/24 0630 -- -- 57 18 95 % 08/07/24 0629 (!) 133/55 81 -- -- -- No data found. Objective Goals:Encounter Goals Encounter Goals (Active) Patient will perform upper body dressing with wheelchair level with mod assistto improve independence with dressing. (Progressing) Start: 07/24/24 Expected End: 08/20/24 Patient will perform lower body dressing with analytics manager at wheelchair level with mod assist to improve independence with dressing. (Progressing) Start: 07/24/24 Expected End: 08/20/24 Within 2 weeks of starting therapy, the patient and/or family/caregiver will demonstrate independence and be compliant in a written HEP in order to maximize gains made during therapy. (Progressing) Start: 07/24/24 Expected End: 08/20/24 Pt and/or caregiver(s) will have all appropriate DME, recommendations, or completed prescriptions to maximize pt's safety and independence at discharge. (Progressing) Start: 07/24/24 Expected End: 08/20/24 Patient and/or caregivers will verbalize understanding of home program including safety tips, equipment instructions, and home exercises. (Progressing) Start: 07/24/24 Expected End: 08/20/24 Patient will participate in forced use activities using the affected upper extremity with min assistance to inhibit abnormal movement patterns. (Progressing) Start: 07/24/24 Expected End: 08/20/24 Patient will tolerate weight bearing through their effected upper extremity for 25-30 minutes with min assist. (Progressing) Start: 07/24/24 Expected End: 08/20/24 Supervising Occupational Therapist: Royal MEJIAS/Padmini Patient progress towards current goals and plan of care was discussed in person with supervising Occupational Therapist. Mallory Lyman OT CAL RECEPTIONIST * Michael Lopez PTA - 08/06/2024 8:25 AM MEDICAL RECEPTIONIST Physical Therapy Treatment Session Note Patient Name: Toney Martel Today's Date: 08/06/2024 Preferred Language: Guamanian Assessment & Plan Assessment: PT Assessment: Pt was able to tolerate therapy session well. Pt was able to consistently perform stand step transfers throughout session with good control and good ability to turn feet. Pt was also able to work on balance, standing with no support and ambulating to grab bags from the ground using grabber. Pt ambulates for 130 ft with good control and Min A needed from therapit and cueing for sequence. Pt continues to work hard in therapy and is wanting to improve to be able to go home. Prognosis: Good Barriers to Discharge: Insight into deficits Evaluation/Treatment Tolerance: Patient tolerated treatment well Medical Staff Made Aware: Yes Strengths: Attitude of self, Support and attitude of living partners, Support of extended family/friends Plan: Treatment Plan/Goals Established with Patient/Caregiver: Yes PT Frequency: 5-7 times per week PT Discharge Recommendations: Inpatient rehab facility placement Equipment Recommended: DME wheelchair PT Planned Treatment: Balance training, Basic activities of daily living, Bed mobility training, Body weight support treadmill training, Caregiver training, Equipment training, Gait training, Group therapy, Manual therapy, Neuromuscular reeducation, Orthotic training, Patient education, Positioning, Posture/Body mechanics training, Seating, Stair training, Therapeutic activities, Therapeutic exercises, Transfer training, Wheelchair assessment and management Duration: 3-4 weeks Continue to work on gait and forced use of LLE. Possible attempt quadruped since pt has more return in LUE. Need to contact pt and son to see when they would be able to come in for training. Subjective Pt was semi-bales in bed when therapist arrived and pt was agreeable to therapy. At the end of session pt was left seated in w/c with maura belt donned and PCT in room. Pain: Pain Assessment Pain Assessment: DVPRS (08/06/2024824) Pain Score: 4 (08/06/2024824) Pain Rating Scale (DVPRS): Distracts me, can do usual activities (08/06/2024824) Pain Type: Neuropathic pain (08/06/2024824) Pain Location: Arm (08/06/2024824) Pain Orientation: Left (08/06/2024824) Clinical Progression: Not changed (08/06/2024824) Pain Interventions: Medication (See MAR) (08/06/2024824) Vital Signs: Patient Vitals for the past 12 hrs: BP MAP (mmHg) Pulse Resp SpO2 08/06/24 0620 -- -- 56 15 96 % 08/06/24 0619 (!) 133/57 82 -- -- -- No data found. Objective 08/06/24824 PT Last Visit PT Received On 08/06/24 Response to Previous Treatment Patient with no complaints from previous session. Time Calculation Start Time 824 Stop Time 929 Time Calculation (min) 65 min Activity Tolerance Endurance Tolerates 30 min exercise with multiple rests Sitting Balance Sits without support for more than 30 sec Early Mobility/Exercise Safety Screen Proceed with mobilization - No exclusion criteria met Pain Assessment Pain Assessment DVPRS Pain Score 4 Pain Rating Scale (DVPRS) 4 Pain Type Neuropathic pain Pain Location Arm Pain Orientation Left Clinical Progression Not changed Pain Interventions Medication (See MAR) Health Conditions Pain Interference with Therapy Activities Rarely or not at all Therapeutic Activity Therapeutic Activity Time Entry 20 Therapeutic Activity 1 Pt was able to perform bed mobility, therapist assisted with donning AFO and shoes, trasnferred to the chair, trasnfer to toilet, completed toileting with assistance from therapist, then trasfner back to the chair Bed Mobility Bed Mobility Yes Bed Mobility 1 Level of Assistance 1 Partial/Mod assistance Bed Mobility Comments 1 Pt needed Min A to get to sitting on the EB with therapist facilitating at shoulder to prevent pt from falling back onto bed Bed Mobility To/From Supine to sit on EOB Assistive Devices And Adaptive Equipments Head of bed elevated;Bed rail Roll Left and Right Assistance Needed Physical assistance Physical Assistance Level 26%-50% CARE Score - Roll Left and Right 3 Lying to Sitting on Side of Bed Assistance Needed Physical assistance Physical Assistance Level 25% or less CARE Score - Lying to Sitting on Side of Bed 3 Sit to Lying Assistance Needed Physical assistance Physical Assistance Level 26%-50% CARE Score - Sit to Lying 3 Transfers Transfer Yes Transfer 1 Technique 1 Stand step Level of Assistance 1 Partial/Mod assistance Trials/Comments 1 Pt needed Mod A to stand and then turn to sit in w/c with therapist cueing pt to turn feet cocmpletely before sitting down Transfer To/From Bed;Wheelchair Assistive Devices And Adaptive Equipments No device Transfers 2 Technique 2 Stand step Level of Assistance 2 Partial/Mod assistance Trials/Comments 2 Pt performed transfer same as above Transfer To/From Wheelchair;Mat Assistive Devices And Adaptive Equipments No device Transfers 3 Technique 3 Stand step Level of Assistance 3 Supervision/touching assistance Trials/Comments 3 Pt was able to stand with therapist providing CGA as pt pushed up from mat with good control Transfer To/From [id number] Assistive Devices And Adaptive Equipments No device Chair/Oul-gw-Owkzv Transfer Assistance Needed Physical assistance Physical Assistance Level 25% or less Comment Min A stand step CARE Score - Chair/Nzy-yx-Emyic Transfer 3 Sit to Stand Assistance Needed Incidental touching;Supervision Physical Assistance Level No physical assistance CARE Score - Sit to Stand 4 Car Transfer Reason if not Attempted Environmental limitations CARE Score - Car Transfer 10 Toilet Transfers Toilet Transfer To/From Wheelchair;Toilet Transfer Type Stand step Level of Assistance Partial/Mod assistance Assistive Devices And Adaptive Equipments No device Toilet Transfers Comments Pt needed Min A to transfer over to the commode with therapist cueing pt to reach for rail when sitting Toilet Transfer Assistance Needed Physical assistance Physical Assistance Level 26%-50% CARE Score - Toilet Transfer 3 Gait Training Gait Training Time Entry 20 Gait Training Activity Yes Gait Training Activity 1 Distance (enter in feet) 50ft, 132ft Assistive Devices And Adaptive Equipments Cane, small based quad Level of Assistance 1 Partial/Mod assistance Gait Training Activity 1 Comment Pt ambualtes with a step to pattern with cueing needed for sequencing and also making sure AD is not put too far ahead. Pt tendency is to look down, even with use of mirror pt keeps head down looking at feet. Therapist provided Min A as rehabilitation consultant followed with w/c. Surface And Method Indoor;Even surface Walk 10 Feet Assistance Needed Physical assistance Physical Assistance Level 25% or less Comment Using SBQC CARE Score - Walk 10 Feet 3 Walk 50 Feet with Two Turns Assistance Needed Physical assistance Physical Assistance Level 25% or less Comment Using SBQC CARE Score - Walk 50 Feet with Two Turns 3 Walk 150 Feet Reason if not Attempted Safety concerns CARE Score - Walk 150 Feet 88 Walking 10 Feet on Uneven Surfaces Reason if not Attempted Safety concerns CARE Score - Walking 10 Feet on Uneven Surfaces 88 1 Step (Curb) Reason if not Attempted Safety concerns CARE Score - 1 Step (Curb) 88 4 Steps Reason if not Attempted Safety concerns CARE Score - 4 Steps 88 12 Steps Reason if not Attempted Safety concerns CARE Score - 12 Steps 88 Balance/Neuromuscular Re-Education Neuromuscular Re-Education Time Entry 25 Activity Component(s) 1 Standing;Dynamic Balance/Neuromuscular Re-Education Activity 1 Pt worked on standing and tossing dowell bags into basket with therapist cueing to stand up tall and then reaching to grab bags from the L and R. Pt was able to demonstrate good ability to throw to the L and R and also ambualte with Min A and used grabber to grab missed bags. Pt completed 3 rounds with rest breaks in between Picking Up Object Assistance Needed Physical assistance;Adaptive equipment Physical Assistance Level 25% or less Comment Used grabber to grab bags from the floor CARE Score - Picking Up Object 3 Wheel 50 Feet with Two Turns Assistance Needed Physical assistance Physical Assistance Level 26%-50% CARE Score - Wheel 50 Feet with Two Turns 3 Type of Wheelchair/Scooter Manual Wheel 150 Feet Assistance Needed Physical assistance Physical Assistance Level Total assistance CARE Score - Wheel 150 Feet 1 Type of Wheelchair/Scooter Manual PT Assessment PT Assessment Pt was able to tolerate therapy session well. Pt was able to consistently perform stand step transfers throughout session with good control and good ability to turn feet. Pt was also able to work on balance, standing with no support and ambulating to grab bags from the ground using grabber. Pt ambulates for 130 ft with good control and Min A needed from therapit and cueing for sequence. Pt continues to work hard in therapy and is wanting to improve to be able to go home. Prognosis Good Barriers to Discharge Insight into deficits Evaluation/Treatment Tolerance Patient tolerated treatment well Medical Staff Made Aware Yes Strengths Attitude of self;Support and attitude of living partners;Support of extended family/friends Patient Education: Education Documentation No documentation found. Education Comments No comments found. Goals: Encounter Goals Encounter Goals (Active) Rolling: mod-independent (Progressing) Start: 07/23/24 Expected End: 08/13/24 Lying<>Sitting<>Lying: CGA/supervision with paris technique (Progressing) Start: 07/23/24 Expected End: 08/13/24 Pt will participate in pre-gait activities emphasizing B LE activation, proper sequencing, midline orientation, reciprocal movements, and controlled WS to facilitate safe gait training. (Progressing) Start: 07/23/24 Expected End: 08/13/24 Pt will be tolerate ambulation > 100ft CGA with LRAD in order to address safe locomotion necessary for discharge to most appropriate location and return to functional activity. Start: 08/03/24 Expected End: 08/13/24 Within 2 weeks of starting therapy, the patient and/or family/caregiver will demonstrate independence and be compliant in a written HEP in order to maximize gains made during therapy. (Progressing) Start: 07/23/24 Expected End: 08/13/24 Pt and/or caregiver(s) will have all appropriate DME, recommendations, or completed prescriptions to maximize pt's safety and independence at discharge. (Progressing) Start: 07/23/24 Expected End: 08/13/24 Transfers: Juancho stand step with LRAD (Progressing) Start: 07/23/24 Expected End: 08/13/24 Sit to Stand: CGA with LRAD (Progressing) Start: 07/23/24 Expected End: 08/13/24 Pt will be able to sit for at least 5 mins with support of no UE with midline orientation, erect posture, even KATY, appropriate WBing and ability to reach > 5" outside KATY without LOB to facilitate improved standing to return to functional tasks. (Progressing) Start: 07/23/24 Expected End: 08/13/24 Patient able to propel WC ~300ft supervision with B LE propulsion with appropriate safety awareness, midline orientation, and obstacle avoidance to facilitate safe community mobility. (Progressing) Start: 07/23/24 Expected End: 08/13/24 Supervising Physical Therapist: Ange Soler, ALEJANDRO Patient progress towards current goals and plan of care was discussed in person with supervising Physical Therapist. Michael Lopez PTA CAL RECEPTIONIST * SUNSHINE KimS - 08/05/2024 4:43 PM MEDICAL RECEPTIONIST Speech-Language Pathology Treatment Note Patient Name: Toney Martel Today's Date: 08/05/2024 Preferred Language: Guamanian 08/05/24 1430 Time Calculation Start Time 1430 Stop Time 1500 Time Calculation (min) 30 min JAVA SDET Last Visit Most Recent JAVA SDET Session 08/04/24 General Family/Caregiver Present No Pain Assessment Pain Assessment 0-10 Pain Score 0 Pain Rating Scale (DVPRS) 0 Speech/Voice Speech Treatment Time 15 Speech Activities Strategy Training/Speech Drills Speech Comments Patient reeducated on SLOP (slow, loud, overarticulate, pause) strategies to increase speech intelligibility. Patient able to recall information presented with 50% accuracy. Continue strategy training. Patient engaged speech drills via increasing mean length of utterances via 6-10 word sentences-- 80% intelligible to familiar listener. Patient required frequent reminders to utilize SLOP strategies t/o task. Cognitive-Linguistic Skills Cognitive-Linguistic Skills Treatment Time 15 Cognitive-Linguistic Training Activities Visual Scanning Cognitive Skills Comments Patient completed visual scanning task via identifying specific symbols from left to right. Patient continues to present with left side neglect. Education and frequent prompts given t/o task. Comprehension Score Comprehends Complex or Abstract Information Without Prompting or Cueing Yes Mode of Comprehension Auditory Understands Complex or Abstract Directions and Conversations Requires extra time Functional [place] Measure Comprehension Modified independence - 6 Expression Score Expresses Complex or Abstract Information Without Prompting or Cueing No Expression Mode Vocal Expresses Basic Daily Needs and Ideas Patient expresses basic daily needs and ideas more than 90% of the time requires prompting less than 10% of the time to be understood Functional [place] Measure Expression Standby prompting - 5 Social Interaction Score Interacts Appropriately Without Supervision Yes Interacts Appropriately At all times Functional [place] Measure Social Interaction Complete independence - 7 Problem Solving Score Solves Complex Problems No Solves Routine Problems Patient requires supervision to solve routine problems only under stressful or unfamiliar conditions, but no more than 10% of the time Functional [place] Measure Problem Solving Standby prompting - 5 Memory Score Recognizes, Remembers Routines, and Executes Requests Without Prompting Yes Remembers and Executes Requests Mild difficulty Functional [place] Measure Memory Modified independence - 6 JAVA SDET Assessment Session Tolerance Patient tolerated session well Assessment & Plan Assessment: Session Tolerance: Patient tolerated session well Plan: Treatment Plan/Goals Established with Patient/Caregiver: Yes Barriers to Discharge: Insight into deficits, Complicated medical history Treatment/Interventions: Communication functioning, Swallow function, Patient/family education, Instrumental Assessments JAVA SDET Plan: Skilled JAVA SDET Frequency: 5-7 times per week Duration: 4 weeks JAVA SDET Discharge Recommendations: Home Health JAVA SDET NPO: No Swallow Precautions: Alternate liquids/solids, Clear pocketing, Feed only when alert, Oral hygiene after meals, Upright to 90 degrees, Small bites/sips Solid Consistency: Minced & Moist Liquid Viscosity: Thin Liquids Medications: Crushed in puree with MD approval Supervision Recommended: 1:1 Supervision Details: verbal and tactile cues to swallow, spoon down after each bite, alternate bites/sips, reduce distractions Compensatory Strategies for Dysphagia: Additional dry swallow(s) between bites/sips, Alternate solids and liquids, Slow rate, Small bites/sips, Oral hygiene, Position as upright as possible during oral intake, Remain upright after oral intake, Effortful swallow, Feed only when alert, Reduce environmental distractions during mealtimes Rehabilitation Exercises for Dysphagia Management: Effortful swallow, VERONICA (Effortful, intensive jaw opening exercise), Shaker and/or modified Shaker maneuver Therapeutic Recommendations: Dysphagia tx, Trials with JAVA SDET Subjective Current Problem: ICH CVA Pain: Pain Assessment Pain Assessment: 0-10 (08/05/2024 1430) Pain Score: 0 (08/05/2024 1430) Pain Rating Scale (DVPRS): No pain (08/05/2024 1430) Post-Therapy Intervention Pain Assessment: Objective Vital Signs: Patient Vitals for the past 24 hrs: BP MAP (mmHg) Pulse Resp SpO2 08/05/24 1613 -- -- 59 16 97 % 08/05/24 1612 147/69 95 -- -- -- 08/05/24 0614 -- -- 60 18 97 % 08/05/24 0614 138/69 92 -- -- -- 08/04/24 1915 -- -- 61 18 95 % 08/04/24 1915 144/66 92 -- -- -- Last Visit: Most Recent JAVA SDET Session: 08/04/24 General Visit Info: Family/Caregiver Present: No Treatment:Speech/Voice: Speech Treatment Time: 15 Speech Activities: Strategy Training/Speech Drills Speech Comments: Patient reeducated on SLOP (slow, loud, overarticulate, pause) strategies to increase speech intelligibility. Patient able to recall information presented with 50% accuracy. Continue strategy training. Patient engaged speech drills via increasing mean length of utterances via 6-10 word sentences-- 80% intelligible to familiar listener. Patient required frequent reminders to utilize SLOP strategies t/o task. Cognitive-Linguistic Skills:Cognitive-Linguistic Skills Treatment Time: 15 Cognitive-Linguistic Training Activities: Visual Scanning Cognitive Skills Comments: Patient completed visual scanning task via identifying specific symbols from left to right. Patient continues to present with left side neglect. Education and frequent prompts given t/o task. Comments: FIM Scores: Comprehension:Comprehends Complex or Abstract Information Without Prompting or Cueing: Yes Mode of Comprehension: Auditory Understands Complex or Abstract Directions and Conversations: Requires extra time Functional [place] Measure Comprehension: Modified independence - 6 Expression:Expresses Complex or Abstract Information Without Prompting or Cueing: No Expression Mode: Vocal Expresses Basic Daily Needs and Ideas: Patient expresses basic daily needs and ideas more than 90% of the time requires prompting less than 10% of the time to be understood Functional [place] Measure Expression: Standby prompting - 5 Social Interaction:Interacts Appropriately Without Supervision: Yes Interacts Appropriately: At all times Functional [place] Measure Social Interaction: Complete independence - 7 Problem Solving:Solves Complex Problems: No Solves Routine Problems: Patient requires supervision to solve routine problems only under stressful or unfamiliar conditions, but no more than 10% of the time Functional [place] Measure Problem Solving: Standby prompting - 5 Memory:Recognizes, Remembers Routines, and Executes Requests Without Prompting: Yes Remembers and Executes Requests: Mild difficulty Functional [place] Measure Memory: Modified independence - 6 Outcome Measures:FIMS Patient Education:Education Documentation No documentation found. Education Comments No comments found. Goals:Encounter Goals Encounter Goals (Active) STG - Patient will use speech intelligibility Intervention at conversational level (Progressing) Start: 07/24/24 Expected End: 08/04/24 LTG - Demonstrate reasoning (Progressing) Start: 07/24/24 Expected End: 08/21/24 LTG - Demonstrate visual scanning during a reading task (Progressing) Start: 07/24/24 Expected End: 08/21/24 LTG - Provides multi-step/complex solutions (Progressing) Start: 07/24/24 Expected End: 08/21/24 STG - Complete a 15-30 minute complex attention task (Progressing) Start: 07/24/24 Expected End: 08/21/24 STG - Demonstrate alternating attention by being able to shift the focus of attention between tasks/activities/ideas (Progressing) Start: 07/24/24 Expected End: 08/21/24 STG - Engage in deductive reasoning (Progressing) Start: 07/24/24 Expected End: 08/21/24 STG - Identify appropriate solutions to a problem (Progressing) Start: 07/24/24 Expected End: 08/21/24 STG - Identify cognitive/physical strengths and limitations (Progressing) Start: 07/24/24 Expected End: 08/21/24 LTG - Patient will improve on swallowing outcome measure (Progressing) Start: 07/24/24 Expected End: 08/21/24 STG - Improve airway protection (Progressing) Start: 07/24/24 Expected End: 08/21/24 STG - Improve bolus control (Progressing) Start: 07/24/24 Expected End: 08/21/24 STG - Increase the amount of food/liquid given by mouth while decreasing amount given by tube (Progressing) Start: 07/24/24 Expected End: 08/21/24 Encounter Goals (Resolved) STG - Participate in an instrumental swallow study (Completed) Start: 07/24/24 Expected End: 08/21/24 Resolved: 07/30/24 SUNSHINE KimSCosigned by Isa Howard CCC-JAVA SDET at 08/05/2024 4:49 PM MEDICAL RECEPTIONIST CAL RECEPTIONIST CAL RECEPTIONIST * CHHAYA Gray - 08/05/2024 11:30 AM MEDICAL RECEPTIONIST Treatment Session Note Patient Name: Toney Martel Today's Date: 08/05/2024 Preferred Language: Guamanian Assessment & Plan Assessment: OT Assessment Results: Impaired ADL status, Impaired upper extremity range of motion, Impaired upper extremity strength, Impaired safe judgment during ADL, Impaired cognition, Impaired endurance, Increased pain, Impaired functional mobility, Impaired fine motor control, Impaired sensation, Visual deficit, Impaired gross motor control, Impaired left upper extremity OT Assessment: Pt with good tolereance to todays session. Pt showing improvement in dressing with the visual cue of the mirror however still presents with deficits associated with motor planning and proprioceptive awarness. Pt contuines to show activation and volitonal movement in the proximal LUE during functional tasks with minimal activiation noticed distally, however pt still attempts to use it. Pt demonstrated tolerance in standing balance activites with gross motor activites. Pt continues to require VC during standing tasks to weightshift back to midline. Pt continues to benefit from OT services to maximize endurance, saftey and independence in functional activites and in t/fs. Prognosis: Good Evaluation/Treatment Tolerance: Patient tolerated treatment well Medical Staff Made Aware: Yes Strengths: Attitude of self Barriers to Discharge: Insight into deficits Plan: Treatment Plan/Goals Established with Patient/Caregiver: Yes Treatment Interventions: ADL retraining, Cognitive reorientation, Endurance training, Neuromuscular reeducation, Orthotic/Orthotic management, Patient/family training, Scar management OT Plan: Skilled OT OT Frequency: 5-7 times per week Equipment Recommended: DME wheelchair, Wheelchair- seat cushion pressure reducing, Wheelchair- accessories, Wheelchair- back OT Planned Treatments: Activities of Daily Living, Neuromuscular reeducation, Balance training, Coordination, Equipment training, Joint protection, Home program, Orthotic, Patient education, Safety education, Seating/Positioning, Therapeutic activities, Therapeutic exercises, Splinting, Caregiver training, Work simplification, Energy conservation training OT Duration: 1-2 weeks Subjective Patient tolerated the session well. Pt complained of pain in the L side of her abdomen, nurse was notified to give pain meds per patient request. Pain: Pain Assessment Pain Assessment: DVPRS (08/05/2024 1330) Pain Score: 3 (08/05/2024 1330) Pain Rating Scale (DVPRS): Sometimes distracts me (08/05/2024 1330) Pain Type: Acute pain (08/05/2024 1330) Pain Location: Abdomen (08/05/2024 1330) Pain Orientation: Left (08/05/2024 1330) Response to Interventions: Pt reports left lower abdomen pain next to her peg tube sight; pt given intermittent rest breaks and the nurse was notified about request for pain meds, (08/05/2024 1330) Vital Signs: Patient Vitals for the past 12 hrs: BP MAP (mmHg) Pulse Resp SpO2 08/05/24 1613 -- -- 59 16 97 % 08/05/24 1612 147/69 95 -- -- -- No data found. Objective 08/05/24 1130 08/05/24 1330 General Family/Caregiver Present No No Time Calculation Start Time 1130 1330 Stop Time 1200 1430 Time Calculation (min) 30 min 60 min Pain Assessment Pain Assessment DVPRS DVPRS Pain Score 0 3 Pain Rating Scale (DVPRS) -- 3 Pain Type -- Acute pain Pain Location -- Abdomen Pain Orientation -- Left Response to Interventions -- Pt reports left lower abdomen pain next to her peg tube sight; pt given intermittent rest breaks and the nurse was notified about request for pain meds, ADL UE Dressing Activity Component(s) -- Short sleeve shirt LE Dressing Activity Component(s) -- Pants Grooming Grooming Comments -- Pt required Min A to support the L arm due to her sitting in the w/c to reach the sink, pt also required asssistance to reach the soap and VC to wash L hand thoroughly. Activity Component(s) -- Washing hands Grooming Location -- Sink Level of Assistance -- Partial/Mod assistance Upper Body Dressing Dressing Location/Position -- In wheelchair Assistive Devices And Adaptive Equipments -- Other (specify) (vertical standing mirror) Level of Assistance -- Partial/Mod assistance Comment -- Pt sat in w/c and had the tall mirror in front of her for visual feedback. Pt was able to doff shirt with Mod A due to requiring assistance with lifting the back of her shirt up to doff over her head due to weak grasp in that R hand. Once pt had doffed shirt over head, pt was able to much easily unthread BUE. Pt benefitted from therapist offering the alternative idea to pull the shirt over head instead of doing the arms first. Pt able to don shirt with Mod A in assistance in donning the L arm. It was noted that even with use of the mirror the pt has some motor planning and proprioceptive deficits when attempting to thread the L arm as the pt was having difficulty coordinating the R hand to assist pulling the shirt towards her L shoulder to thread the arm. Upper Body Dressing Assistance Needed -- Physical assistance Physical Assistance Level -- 26%-50% Comment -- required more assistance with threading the L arm into the shirt. CARE Score - Upper Body Dressing -- 3 Lower Body Dressing Assistive Devices And Adaptive Equipments -- Other (specify) (vertical standing mirror) Dressing Location/Position -- In wheelchair Level of Assistance -- Partial/Mod assistance Comment -- Pt doffed pants over hips utilizing the mirror, pt required Min A in standing position due to standing balance. Pt required Max A when donning pants in w/c. Pt benefitted from removal of both arm rests to adjust hips diagnonally with VC and physical assist to bring L leg in modified tailored sit position to thread L leg. In standing pt required standing balance assistance to pull pants over L hip and bottock while utilizing the mirror with Max A. LB dressing overall is Mod A. Lower Body Dressing Assistance Needed -- Physical assistance Physical Assistance Level -- 26%-50% CARE Score - Lower Body Dressing -- 3 Footwear Dressing Activity Component(s) -- Compression hose/stockings;Socks;Shoes Dressing Location/Position -- In wheelchair Level of Assistance -- Substantial/Max assistance Comment -- Due to tightness and time contriants, therapist doffed compression socks. Therapist removed AFO for pt, pt assisted in removing the proximal strap. Pt beniffted from VC and physical assistance to adjust hips diagnonally with the w/c arms removed to put L hip in modified tailored postition to don sock with Max A due to poor R grasp. Pt able to don shoe in that same four point position with assistance to hold the shoe and VC to push the heel into the shoe. Putting On/Taking Off Footwear Assistance Needed -- Physical assistance Physical Assistance Level -- 51%-75% CARE Score - Putting On/Taking Off Footwear -- 2 Toileting Activity Component(s) -- Managing clothing before;Managing clothing after;Perineal hygiene, front Level of Assistance -- Partial/Mod assistance Comment -- Pt had the urge to go to the bathroom for urine voiding before going back to the bed after the session. Pt was able to manage pulling down pants and brief with SPV. Pt was able to complete perineal hygiene with SPV. Pt required Mod A with clothing management to pull up brief and pants over hips on the L posterior side for balance and saftey,. Toileting Position/Set Up -- On toilet Toileting Hygiene Assistance Needed -- Physical assistance Physical Assistance Level -- 26%-50% CARE Score - Toileting Hygiene -- 3 Toilet Transfers Toilet Transfer To/From -- Wheelchair;Toilet Transfer Type -- Stand step Level of Assistance -- Partial/Mod assistance Assistive Devices And Adaptive Equipments -- No device Toilet Transfers Comments -- Pt required Mod A to steady and to weightshift in standing. Pt benefitted from VC to attend to stepping with the L leg. Toilet Transfer Assistance Needed -- Physical assistance Physical Assistance Level -- 26%-50% CARE Score - Toilet Transfer -- 3 Bed Mobility Bed Mobility -- Yes Bed Mobility 1 Level of Assistance 1 -- Partial/Mod assistance Bed Mobility Comments 1 -- Pt required Min A for assistance with LE onto the bed and cues for bridging to move her hips with Min A. Bed Mobility To/From -- Sitting EOB to supine Assistive Devices And Adaptive Equipments -- Bed rail Transfers Transfer Yes Yes Transfer 1 Level of Assistance 1 Partial/Mod assistance Partial/Mod assistance Trials/Comments 1 Pt required Min A for steadying and LLE blocking by therapist on L side during sit to stand. Pt required Min A for steadying and LLE blocking by therapist on L side during sit to stand. Transfer To/From [id number];Wheelchair [id number];Wheelchair Assistive Devices And Adaptive Equipments Walker, front-wheeled Walker, front-wheeled Therapeutic Procedures Time Entry Therapeutic Activity Time Entry 30 -- Therapeutic Activity Therapeutic Activity 1 Pt was instructed to reach in multiple directions to remove all of the clothespins off of her UB and proximal portions of her LB to promote UE ROM, sensory perception and awarness of body in space. Pt stood in front of a tall mirror for visual feedback and awarness of clips on the L side. Pt benefitted from intermitted breaks in between due to low endurance in standing. Pt was able to reach posterioly with her R hand towards her back and buttocks to grab clips that were out of sight. Pt benefitted from [place] to reach acorss to her L side to grab the clips on the L hip. It was noted that the pt attempted several times to use the L hand to hold the clip from the R hand, the therapist encouraged this functional use of her hand and assisted with [place]. -- Therapeutic Activity 2 It was noted in the previous activity that the pt was pulling the clips off and not grasping to squeeze the clips to work on gross motor grasp in the hand, so the therapist had the pt stand and put clothespins on a modified clothesline on the mirror. Pt utilized the gross motor grasp as intended to squeeze the clothespin.The pt tolerated it well and was able to reach for the clips by looking to her L side to work on funcitonal reaching and L side awareness. -- OT Assessment OT Assessment Results -- Impaired ADL status;Impaired upper extremity range of motion;Impaired upper extremity strength;Impaired safe judgment during ADL;Impaired cognition;Impaired endurance;Increased pain;Impaired functional mobility;Impaired fine motor control;Impaired sensation;Visual deficit;Impaired gross motor control;Impaired left upper extremity OT Assessment -- Pt with good tolereance to todays session. Pt showing improvement in dressing with the visual cue of the mirror however still presents with deficits associated with motor planning and proprioceptive awarness. Pt contuines to show activation and volitonal movement in the proximal LUE during functional tasks with minimal activiation noticed distally, however pt still attempts to use it. Pt demonstrated tolerance in standing balance activites with gross motor activites. Pt continues to require VC during standing tasks to weightshift back to midline. Pt continues to benefit from OT services to maximize endurance, saftey and independence in functional activites and in t/fs. Prognosis -- Good Evaluation/Treatment Tolerance -- Patient tolerated treatment well Medical Staff Made Aware -- Yes Strengths -- Attitude of self Barriers to Discharge -- Insight into deficits Patient Education: Education Documentation No documentation found. Education Comments No comments found. Goals: Encounter Goals Encounter Goals (Active) Patient will perform upper body dressing with wheelchair level with mod assist to improve independence with dressing. (Progressing) Start: 07/24/24 Expected End: 08/20/24 Patient will perform lower body dressing with analytics manager at wheelchair level with mod assist to improve independence with dressing. (Progressing) Start: 07/24/24 Expected End: 08/20/24 Within 2 weeks of starting therapy, the patient and/or family/caregiver will demonstrate independence and be compliant in a written HEP in order to maximize gains made during therapy. (Progressing) Start: 07/24/24 Expected End: 08/20/24 Pt and/or caregiver(s) will have all appropriate DME, recommendations, or completed prescriptions to maximize pt's safety and independence at discharge. (Progressing) Start: 07/24/24 Expected End: 08/20/24 Patient and/or caregivers will verbalize understanding of home program including safety tips, equipment instructions, and home exercises. (Progressing) Start: 07/24/24 Expected End: 08/20/24 Patient will participate in forced use activities using the affected upper extremity with min assistance to inhibit abnormal movement patterns. (Progressing) Start: 07/24/24 Expected End: 08/20/24 Patient will tolerate weight bearing through their effected upper extremity for 25-30 minutes with min assist. (Progressing) Start: 07/24/24 Expected End: 08/20/24 Supervising Occupational Therapist: Tiffanie Shane Patient progress towards current goals and plan of care was discussed in person with supervising Occupational Therapist. CHHAYA Gray Cosigned by Tiffanie Shane OT at 08/05/2024 8:13 PM CST CAL RECEPTIONIST CAL RECEPTIONIST * Salomon Rubio, DO - 08/05/2024 11:06 AM MEDICAL RECEPTIONIST Physical Medicine and Rehabilitation Progress Note - Daily Admission Date: 07/23/2024 SUBJECTIVE:Patient was seen and examined at bedside. No issues overnight. Pt states they slept well. Moving her LLE more, HF and KE 4/5. LUE still feels heavy and "tingly". She is agreeable to increase omega to tid. Pt denies f/c, cp, sob, dizziness, n/v/d, dysuria, GONZALEZ, pain. Eating and drinking without issue. Am labs reviewed. Last BM Date: 08/05/24Stool Appearance: Soft, Formed Stool Amount: Large Labs BMP:Results from last 7 days Lab Units 08/05/24 0512 CREATININE mg/dL 0.59 BUN mg/dL 15 SODIUM mEq/L 143 POTASSIUM mEq/L 4.1 CHLORIDE mEq/L 107 CO2 mEq/L 26.2 CBC:Results from last 7 days Lab Units 08/05/24 0512 WBC 10*3/uL 4.26 HEMOGLOBIN g/dL 10.9 HEMATOCRIT % 35.8 MCV fL 87.5 PLATELETS 10*3/uL 353 PTT:Coagulation: UA: No lab exists for component: "SPECGRAVU", "BLOODU", "LEUKOCYTESU"UC: No results found for the last 90 days. Filters applied: Specimen Type. BCX: No results found for the last 90 days.Filters applied: Specimen Type. PRNs in past 24 hours: VitalsVitals: 08/04/24 1915 08/05/24 0614 08/05/24 0614 08/05/24 0614 BP: 138/69 Pulse: 61 60 Resp: 18 18 Temp: 36.7 ?C (98.1 ?F) SpO2: 95% 97% Intake & OutputI/O last 3 completed shifts: In: 1265 (17.6 mL/kg) [P.O.:890; NG/GT:375] Out: 700 (9.7 mL/kg) [Urine:700 (0.3 mL/kg/hr)] Weight: 71.8 kg MedicationsScheduled: aspirin, 81 mg, Daily atorvastatin, 80 mg, Nightly Docusate Sodium, 100 mg, BID Enteral Free water Flush, 240 mL, q6h Fibersource HN, 375 mL, 4x daily gabapentin, 300 mg, TID heparin, 5,000 Units, q8h senna, 10 mL, Nightly PRNs:acetaminophen, 650 mg, q4h PRN bisacodyl, 10 mg, Nightly PRN dextrose, 12.5 g, Once PRN glucagon, 1 mg, Once PRN melatonin, 3 mg, Nightly PRN sodium chloride, 10 mL, PRN Physical Exam:Constitutional: No acute distress, appearing comfortable, pleasant, cooperative HEENT: NCAT, no scleral icterus, MMM. Cardiovascular: No lower limb edema. Lower limbs warm. Respiratory: Breathing comfortably on room air, no tachypnea. Gastrointestinal: Soft, non-distended abdomen. Genitourinary: No Edwards. Musculoskeletal: Full painless passive range of motion of bilateral upper and lower limbs. Skin: No rashes on limited exam of exposed areas. Psychiatric: No anxiety or agitation. Neurologic: awake, alert, left sided neglect, Dysarthria, L HF/KE 4/5 [facility] is a 78Y F PMH of HTN and carpal tunnel syndrome who was admitted on 07/15/24 on for evaluation of wake up L sided plegia, LFD and R gaze deviation. CTP w/ established M5/M6 region stroke, but 48ml volume in posterior parietal and occipital regions. Patient taken for emergent thrombectomy. within WAKE UP protocol window IAT TICI3. MRI showing R MCA/BIOINFORMATICS TECHNICIAN/SHAWANDA strokes. Failed FEES 07/20, PEG placed 07/22/23. Patient admitted to [facility] on 07/23/24. Acute ischemic right MCA stroke (HCC) - Suspected Etiology: Large artery atherosclerosis - CT: ASPECTS 6, hyperdense MCA - CTA: acute occlusion in R ICA and distal reconstitution of flow in MCA territory but M2 and P-com occlusion. - CTP: established M5/M6 region stroke, but 48ml volume in posterior parietal and occipital regions. - MRI brain w/o contrast R MCA/BIOINFORMATICS TECHNICIAN infarct - TTE- EF: 60-65%, atrium normal - Atorvastatin 80 mg daily - ASA 81 mg daily - monitor neurological status Impaired mobility and ADLsLeft hemiparesis - PT/OT following for strengthening, increased independence with mobility and ADLs, bowel and bladder management, DME evaluation, family training, improvement in balance deficits, improvement in endurance/exercise tolerance Cognitive communication deficitsDysarthria - Continue therapies with JAVA SDET for evaluation of language impairments and cognition - Neuropsychology consultation for cognition and mood Dysphagia- admitted as NPO, continue bolus Tfs and enteral FWF -diet upgraded to ground/thins 07/30. - Continue therapies w/ JAVA SDET. 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 Straight cath if PVR > 200cc. Pain- Continue Tylenol as needed for nociceptive pain - 08/02 increase gabapentin to 300mg BID for ongoing neuropathic pain -08/05 inc omega to tid Skin- Recommend thorough skin evaluation as patient is at risk for pressure injuries. - If patient is unable to reliably change position independently, recommend every 4-6 hours turns to prevent skin breakdown, daily skin checks. Chronic medical co-morbidities:HTN: BP control, BP <140 HLD: statin Prophylaxis- DVT: SQH Follow-Ups Please follow up with [place] [facility] within 1 month, [place] [facility] within 3 months for PEG tube, and PCP within 1-2 weeks. CAL RECEPTIONIST * Michael Lopez PTA - 08/05/2024 8:25 AM MEDICAL RECEPTIONIST Physical Therapy Treatment Session Note Patient Name: Toney Martel Today's Date: 08/05/2024 Preferred Language: Guamanian Assessment & Plan Assessment: PT Assessment: Pt was able to tolerate therapy session well. Pt was able to get ready in the morning with therapist assistance and eat breakfast with cueing and SPV. Pt was able to ambualte with AFO with some improvement in L foot clearance, but as pt fatigued they need more cueing to slat pickler foot. Pt was able to practice using SBQC with good control and Min A from therapit fro safety. Pt conitnues to demonstrate good return in LE and UE and will benefit from contiued skilled physical therapy. Prognosis: Good Barriers to Discharge: Insight into deficits Evaluation/Treatment Tolerance: Patient tolerated treatment well Medical Staff Made Aware: Yes Strengths: Attitude of self, Support and attitude of living partners, Support of extended family/friends Plan: Treatment Plan/Goals Established with Patient/Caregiver: Yes PT Frequency: 5-7 times per week PT Discharge Recommendations: Inpatient rehab facility placement Equipment Recommended: DME wheelchair PT Planned Treatment: Balance training, Basic activities of daily living, Bed mobility training, Body weight support treadmill training, Caregiver training, Equipment training, Gait training, Group therapy, Manual therapy, Neuromuscular reeducation, Orthotic training, Patient education, Positioning, Posture/Body mechanics training, Seating, Stair training, Therapeutic activities, Therapeutic exercises, Transfer training, Wheelchair assessment and management Duration: 3-4 weeks Subjective Pt was semi-bales in bed when therapist arrived and pt was agreeable to therapy. At the end of session pt was left seated in w/c with maura belt donned and call light in reach. Pain: Pain Assessment Pain Assessment: DVPRS (08/05/2024824) Pain Score: 3 (08/05/2024824) Pain Rating Scale (DVPRS): Sometimes distracts me (08/05/2024824) Pain Type: Neuropathic pain (08/05/2024824) Pain Location: Arm (08/05/2024824) Pain Orientation: Left (08/05/2024824) Clinical Progression: Not changed (08/05/2024824) Vital Signs: Patient Vitals for the past 12 hrs: BP MAP (mmHg) Pulse Resp SpO2 08/05/24 0614 -- -- 60 18 97 % 08/05/24 0614 138/69 92 -- -- -- No data found. Objective 08/05/24 0825 PT Last Visit PT Received On 08/05/24 Response to Previous Treatment Patient with no complaints from previous session. Time Calculation Start Time 824 Stop Time 929 Time Calculation (min) 65 min Activity Tolerance Endurance Tolerates 30 min exercise with multiple rests Sitting Balance Sits without support for more than 30 sec Early Mobility/Exercise Safety Screen Proceed with mobilization - No exclusion criteria met Pain Assessment Pain Assessment DVPRS Pain Score 3 Pain Rating Scale (DVPRS) 3 Pain Type Neuropathic pain Pain Location Arm Pain Orientation Left Clinical Progression Not changed Health Conditions Pain Interference with Therapy Activities Rarely or not at all Therapeutic Activity Therapeutic Activity Time Entry 20 Therapeutic Activity 1 Assited pt with bed mobility, getting dressed, transfer to chair and then eating breakfast wiith cueing to clear mouth in between bites and to take sips inbetween Bed Mobility Bed Mobility Yes Bed Mobility 1 Level of Assistance 1 Partial/Mod assistance Bed Mobility Comments 1 Pt needed Min A to get to sitting with therapist facilitating at shoulders Bed Mobility To/From Supine to sit on EOB Assistive Devices And Adaptive Equipments Bed rail Roll Left and Right Assistance Needed Physical assistance Physical Assistance Level 26%-50% CARE Score - Roll Left and Right 3 Lying to Sitting on Side of Bed Assistance Needed Physical assistance Physical Assistance Level 25% or less CARE Score - Lying to Sitting on Side of Bed 3 Sit to Lying Assistance Needed Physical assistance Physical Assistance Level 26%-50% CARE Score - Sit to Lying 3 Transfers Transfer Yes Transfer 1 Technique 1 Squat pivot Level of Assistance 1 Partial/Mod assistance Trials/Comments 1 Min A needed due to helping pt stay forward and cueing to turn hips completely to sit in chair Transfer To/From Bed;Wheelchair Assistive Devices And Adaptive Equipments No device Transfers 2 Technique 2 Stand step Level of Assistance 2 Partial/Mod assistance Trials/Comments 2 Pt needed Min A and cueing to push from chair to get to standing Transfer To/From [id number] Assistive Devices And Adaptive Equipments Cane, small base quad Chair/[id number]-pg-[id number] Transfer Assistance Needed Physical assistance Physical Assistance Level 25% or less CARE Score - Chair/Enq-pe-Lkszb Transfer 3 Sit to Stand Assistance Needed Physical assistance Physical Assistance Level 25% or less CARE Score - Sit to Stand 3 Car Transfer Reason if not Attempted Environmental limitations CARE Score - Car Transfer 10 Gait Training Gait Training Time Entry 30 Gait Training Activity Yes Gait Training Activity 1 Distance (enter in feet) 75ft, 75ft Assistive Devices And Adaptive Equipments Cane, small based quad Level of Assistance 1 Partial/Mod assistance Gait Training Activity 1 Comment Pt was able to ambualte with SBQC as rehabilitation consultant followed with w/c. Pt needed cueing to lift L foot to avoid dragging as pt was getting accustomed to using the AFO. Pt was able to demonstrate good sequencing initally but as fatigue set in pt needed cueing to slow down and pay attention to following sequence properly. Surface And Method Indoor;Even surface Gait Training Activity 2 Distance (enter in feet) 40ft Assistive Devices And Adaptive Equipments Other (comment) (Pt used B hand held assist) Level of Assistance 2 Substantial/Max assistance Gait Training Activity 2 Comment Pt ambulated to the storage cabinets with B hand held assist with therapist on L side and rehabilitation consultant on R side. Therapist cued pt to keep head up and focus on taking even steps to avoid a step to pattern. Pt was having difficulty evenly WS without use of the cane and was more unstable. Surface And Method Indoor;Even surface Walk 10 Feet Assistance Needed Physical assistance Physical Assistance Level 25% or less Comment Using SBQC CARE Score - Walk 10 Feet 3 Walk 50 Feet with Two Turns Assistance Needed Physical assistance Physical Assistance Level 25% or less Comment Using SBQC CARE Score - Walk 50 Feet with Two Turns 3 Walk 150 Feet Reason if not Attempted Safety concerns CARE Score - Walk 150 Feet 88 Walking 10 Feet on Uneven Surfaces Reason if not Attempted Safety concerns CARE Score - Walking 10 Feet on Uneven Surfaces 88 1 Step (Curb) Reason if not Attempted Safety concerns CARE Score - 1 Step (Curb) 88 4 Steps Reason if not Attempted Safety concerns CARE Score - 4 Steps 88 12 Steps Reason if not Attempted Safety concerns CARE Score - 12 Steps 88 Picking Up Object Reason if not Attempted Safety concerns CARE Score - Picking Up Object 88 Wheel 50 Feet with Two Turns Assistance Needed Physical assistance Physical Assistance Level 26%-50% CARE Score - Wheel 50 Feet with Two Turns 3 Type of Wheelchair/Scooter Manual Wheel 150 Feet Assistance Needed Physical assistance Physical Assistance Level Total assistance CARE Score - Wheel 150 Feet 1 Type of Wheelchair/Scooter Manual Eating Activity Component(s) Food to mouth Level of Assistance Supervision/touching assistance Comment Pt required SPV and cueing to look for food on L side of plate. therapist cued pt to clear mouth in between bites and sweeping tongue to the L to grab and leftover food. PT Assessment PT Assessment Pt was able to tolerate therapy session well. Pt was able to get ready in the morning with therapist assistance and eat breakfast with cueing and SPV. Pt was able to ambualte with AFO with some improvement in L foot clearance, but as pt fatigued they need more cueing to slat pickler foot. Pt was able to practice using SBQC with good control and Min A from therapit fro safety. Pt conitnues to demonstrate good return in LE and UE and will benefit from contiued skilled physical therapy. Prognosis Good Barriers to Discharge Insight into deficits Evaluation/Treatment Tolerance Patient tolerated treatment well Medical Staff Made Aware Yes Strengths Attitude of self;Support and attitude of living partners;Support of extended family/friends Therapeutic Procedures Time Entry Orthotic Management Training Time Entry 15 (Therapist educated pt on the use fo AFO, need to wear a long sock to avoid shearing on skin, and to purchase a shoe a half or full size larger to accomodate brace. Therapist also eduacted pt to inform therapists about the feel and any tightness) Patient Education: Education Documentation No documentation found. Education Comments No comments found. Goals: Encounter Goals Encounter Goals (Active) Rolling: mod-independent (Progressing) Start: 07/23/24 Expected End: 08/13/24 Lying<>Sitting<>Lying: CGA/supervision with paris technique (Progressing) Start: 07/23/24 Expected End: 08/13/24 Pt will participate in pre-gait activities emphasizing B LE activation, proper sequencing, midline orientation, reciprocal movements, and controlled WS to facilitate safe gait training. (Progressing) Start: 07/23/24 Expected End: 08/13/24 Pt will be tolerate ambulation > 100ft CGA with LRAD in order to address safe locomotion necessary for discharge to most appropriate location and return to functional activity. Start: 08/03/24 Expected End: 08/13/24 Within 2 weeks of starting therapy, the patient and/or family/caregiver will demonstrate independence and be compliant in a written HEP in order to maximize gains made during therapy. (Progressing) Start: 07/23/24 Expected End: 08/13/24 Pt and/or caregiver(s) will have all appropriate DME, recommendations, or completed prescriptions to maximize pt's safety and independence at discharge. (Progressing) Start: 07/23/24 Expected End: 08/13/24 Transfers: Juancho stand step with LRAD (Progressing) Start: 07/23/24 Expected End: 08/13/24 Sit to Stand: CGA with LRAD (Progressing) Start: 07/23/24 Expected End: 08/13/24 Pt will be able to sit for at least 5 mins with support of no UE with midline orientation, erect posture, even KATY, appropriate WBing and ability to reach > 5" outside KATY without LOB to facilitate improved standing to return to functional tasks. (Progressing) Start: 07/23/24 Expected End: 08/13/24 Patient able to propel WC ~300ft supervision with B LE propulsion with appropriate safety awareness, midline orientation, and obstacle avoidance to facilitate safe community mobility. (Progressing) Start: 07/23/24 Expected End: 08/13/24 Supervising Physical Therapist: Ange Soler, PT Patient progress towards current goals and plan of care was discussed in person with supervising Physical Therapist. Michael Lopez PTA CAL RECEPTIONIST * Sylvia Murillo - 08/04/2024 4:14 PM MEDICAL RECEPTIONIST DAWNA called patient's son to discuss discharge planning and to provide updates from rounds. DAWNA gave the son the discharge date of August 13 with the recommendation of home with outpatient therapy. is onsite for family training. Pt son prefers outpatient therapy for his mom and will arrange transportation for outpatient therapy for her through his father. CAL RECEPTIONIST * Monet Blake MD - 08/04/2024 1:44 PM MEDICAL RECEPTIONIST Physical Medicine and Rehabilitation Progress Note - Daily Admission Date: 07/23/2024 SUBJECTIVE:JUNIOR HUYNH; Patient reports feeling well. She endorses some LUE heaviness still but no pain. No questions or concerns at this time Last BM Date: 08/03/24Stool Appearance: Soft Stool Amount: Large Labs BMP:Results from last 7 days Lab Units 08/02/24 0409 CREATININE mg/dL 0.56 BUN mg/dL 14 SODIUM mEq/L 143 POTASSIUM mEq/L 4.6* CHLORIDE mEq/L 108* CO2 mEq/L 22.6 CBC:Results from last 7 days Lab Units 08/02/24 0409 WBC 10*3/uL 4.61 HEMOGLOBIN g/dL 10.7* HEMATOCRIT % 35.6 MCV fL 88.6 PLATELETS 10*3/uL 385 Last BM Date: 08/03/24Stool Appearance: Soft Stool Amount: Large PRNs in past 24 hours: VitalsVitals: 08/03/24 1953 08/04/24 0610 08/04/24 0610 08/04/24609 BP: 137/65 Pulse: 68 64 Resp: 18 18 Temp: 37.3 ?C (99.1 ?F) SpO2: 95% 95% Intake & OutputI/O last 3 completed shifts: In: 1225 (17.1 mL/kg) [P.O.:850; NG/GT:375] Out: 500 (7 mL/kg) [Urine:500 (0.2 mL/kg/hr)] Weight: 71.8 kg MedicationsScheduled: aspirin, 81 mg, Daily atorvastatin, 80 mg, Nightly Docusate Sodium, 100 mg, BID Enteral Free water Flush, 240 mL, q6h Fibersource HN, 375 mL, 4x daily gabapentin, 300 mg, BID heparin, 5,000 Units, q8h senna, 10 mL, Nightly PRNs:acetaminophen, 650 mg, q4h PRN bisacodyl, 10 mg, Nightly PRN dextrose, 12.5 g, Once PRN glucagon, 1 mg, Once PRN melatonin, 3 mg, Nightly PRN sodium chloride, 10 mL, PRN Physical Exam:Constitutional: No acute distress, appearing comfortable. HEENT: NCAT, no scleral icterus, MMM. Cardiovascular: No lower limb edema. Lower limbs warm. Respiratory: Breathing comfortably on room air, no tachypnea. Gastrointestinal: Soft, non-distended abdomen. Genitourinary: Deferred. No Edwards. Musculoskeletal: Full painless passive range of motion of bilateral upper and lower limbs. Skin: No rashes on limited exam of exposed areas. Psychiatric: No anxiety or agitation. Neurologic: awake, alert, left sided neglect, Dysarthria, activating left hip flexors, 4/5 strength at ankle. Keyla Martel is a 78Y F PMH of HTN and carpal tunnel syndrome who was admitted on 07/15/24 on for evaluation of wake up L sided plegia, LFD and R gaze deviation. CTP w/ established M5/M6 region stroke, but 48ml volume in posterior parietal and occipital regions. Patient taken for emergent thrombectomy. within WAKE UP protocol window IAT TICI3. MRI showing R MCA/BIOINFORMATICS TECHNICIAN/SHAWANDA strokes. Failed FEES 07/20, PEG placed 07/22/23. Patient admitted to [facility] on 07/23/24. Acute ischemic right MCA stroke (HCC) - Suspected Etiology: Large artery atherosclerosis - CT: ASPECTS 6, hyperdense MCA - CTA: acute occlusion in R ICA and distal reconstitution of flow in MCA territory but M2 and P-com occlusion. - CTP: established M5/M6 region stroke, but 48ml volume in posterior parietal and occipital regions. - MRI brain w/o contrast R MCA/BIOINFORMATICS TECHNICIAN infarct - TTE- EF: 60-65%, atrium normal - Atorvastatin 80 mg daily - ASA 81 mg daily - monitor neurological status Impaired mobility and ADLsLeft hemiparesis - PT/OT following for strengthening, increased independence with mobility and ADLs, bowel and bladder management, DME evaluation, family training, improvement in balance deficits, improvement in endurance/exercise tolerance Cognitive communication deficitsDysarthria - Continue therapies with JAVA SDET for evaluation of language impairments and cognition - Neuropsychology consultation if/when appropriate for evaluation of cognition and mood Dysphagia- NPO, continue bolus Tfs and enteral FWF - Continue therapies w/ JAVA SDET. 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 Straight cath if PVR > 200cc. Pain- Continue Tylenol as needed for nociceptive pain - 08/02 increase gabapentin to 300mg BID for ongoing neuropathic pain Skin- Recommend thorough skin evaluation as patient is at risk for pressure injuries. - If patient is unable to reliably change position independently, recommend every 4-6 hours turns to prevent skin breakdown, daily skin checks. Chronic medical co-morbidities:HTN: BP control, BP <140 HLD: statin Prophylaxis- DVT: [facility] Follow-Ups Please follow up [place] [facility] within 1 [place], [place] [facility] within 3 months for PEG tube, and PCP within 1-2 weeks. Cosigned by Salomon Rubio DO at 08/04/2024 1:54 PM MEDICAL RECEPTIONIST CAL RECEPTIONIST CAL RECEPTIONIST Associated attestation - Salomon Rubio DO - 08/04/2024 1:54 PM MEDICAL RECEPTIONIST I saw and evaluated the patient with the resident, participating in the kiran portions of the service. I reviewed the resident's note and agree with the documented findings and plan of care. Physical Medicine and Rehabilitation Attending Physician Attestation: I attest that I performed or was physically present during the kiran or critical portions of the service performed by the resident and actively participated in the management of the patient. I have reviewed the resident note and agree with the documented findings and plan of care with any exceptions noted below. I spent over 35 minutes caring for this patient today, reviewing labs andrecords from another provider, obtaining the history, performing the physical exam, documenting in the records and arranging for the following: [x] counseling/education on MANNY/SCI/injury [ ] ordering medications: [ ] [ ] ordering tests: [ ] [ ] ordering procedures: [ ] [ ] Consulting the following providers: [ ] [x] Documentation of clinical information [x] Independently interpreting clinical results of [ ] and communicating results to the patient/family/caregiver [x] Care coordination with therapy/SW/consultants Deedee Santoro #[id number] * CHHAYA Gray - 08/04/2024 11:30 AM MEDICAL RECEPTIONIST Treatment Session Note Patient Name: Toney Martel Today's Date: 08/04/2024 Preferred Language: Guamanian Assessment & Plan Assessment: OT Assessment Results: Impaired ADL status, Impaired upper extremity range of motion, Impaired upper extremity strength, Impaired safe judgment during ADL, Impaired cognition, Impaired endurance, Increased pain, Impaired gross motor control, Impaired fine motor control, Impaired functional mobility, Visual deficit OT Assessment: Pt with good tolerance in today's session with shown improvement to awareness to the L side of her enviroment while completing functional tasks. Pt continues to work on increasing LUE/LLE activation, noted increasing volitonal movement at the proximal LUE with lifting her LUE up on the table top against gravity. Pt demonstrated tolerance in functional activities in dynamic standing balance. Pt continues to require physical and verbal cues during standing tasks to weightshift to the R side to go back to midline. Pt continues to benefit from OT services to maximize saftety and independence in functional activities and t/f. Prognosis: Good Evaluation/Treatment Tolerance: Patient tolerated treatment well Medical Staff Made Aware: Yes Strengths: Attitude of self Barriers to Discharge: Insight into deficits Plan: Treatment Plan/Goals Established with Patient/Caregiver: Yes Treatment Interventions: ADL retraining, Cognitive reorientation, Endurance training, Neuromuscular reeducation, Orthotic/Orthotic management, Patient/family training, Scar management OT Plan: Skilled OT OT Frequency: 5-7 times per week Equipment Recommended: DME wheelchair, Wheelchair- seat cushion pressure reducing, Wheelchair- accessories, Wheelchair- back OT Planned Treatments: Activities of Daily Living, Neuromuscular reeducation, Balance training, Coordination, Equipment training, Joint protection, Home program, Orthotic, Patient education, Safety education, Seating/Positioning, Therapeutic activities, Therapeutic exercises, Splinting, Caregiver training, Work simplification, Energy conservation training OT Duration: 1-2 weeks Subjective Pt reported pain and no acute distress noted and tolerated the session fair. Pain: Pain Assessment Pain Assessment: DVPRS (08/04/2024 1300) Pain Score: 0 (08/04/2024 1300) Pain Rating Scale (DVPRS): No pain (08/04/2024 1300) Vital Signs: Patient Vitals for the past 12 hrs: BP MAP (mmHg) Pulse Resp SpO2 08/04/24 1507 -- -- 60 18 98 % 08/04/24 1507 138/68 91 -- -- -- 08/04/24 0610 -- -- 64 18 95 % 08/04/24 0610 137/65 89 -- -- -- No data found. Objective 08/04/24 1130 08/04/24 1300 General Family/Caregiver Present No No Time Calculation Start Time 1130 1300 Stop Time 1210 1430 Time Calculation (min) 40 min 90 min Pain Assessment Pain Assessment DVPRS DVPRS Pain Score 0 0 Pain Rating Scale (DVPRS) 0 0 ADL Self Care/Home Management (ADLs) Time Entry 10 90 Assistive Devices And Adaptive Equipments -- Grab bars UE Dressing Activity Component(s) -- Zip-up sweatshirt/jacket;Short sleeve shirt;Gown LE Dressing Activity Component(s) -- Brief;Pants;Underwear Bathing Activity Component(s) -- Face;Chest;Arm, left;Arm, right;Abdomen;Perineal area;Buttocks;Leg, left upper;Leg, right upper;Leg, left lower including foot;Leg, right lower including foot Bathing Location -- Shower;Other (specify) (seated on tub bench in walk-in shower.) Level of Assistance -- Partial/Mod assistance Bathing Comments -- Therapist put on dressing over peg-tube to cover/protect for bathing. Pt benefitted with VC to go into four point postion to wash lower leg, pt required Min A to support leg to remain in that position. Pt required Mod A to wash feet, R arm and L buttock when cued to lean to the R. Pt benefitted from VC for positioning on bench for perineal hygeine. Pt was able to dry off UE and chest but required Mod A for drying LE and buttocks. Shower/Bathe Self Assistance Needed -- Supervision;Verbal cues;Physical assistance Physical Assistance Level -- 26%-50% CARE Score - Shower/Bathe Self -- 3 Tub/Shower Transfers Transfer To/From -- Wheelchair;Tub bench Transfer Type -- Stand step Level of Assistance -- Partial/Mod assistance Transfers Comments -- Pt performed stand-step t/f to bench in shower room and required Min-Mod A for hip and LE repositioning on bench. Upper Body Dressing Dressing Location/Position -- Sitting edge of bed;In wheelchair Level of Assistance -- Substantial/Max assistance Comment -- Pt was able to unthread arms of jacket with use of R arm with VC. It was noted that there is a weak grasp with the R hand when attempting to pull shirt over head pt required Max A with significant VC. Pt donned gown with Max A in w/c to thread BUE with difficulty due to L inattention, poor RUE motor planning and coordination with secondary issues due to fatigue. Upper Body Dressing Assistance Needed -- Physical assistance;Verbal cues Physical Assistance Level -- 51%-75% CARE Score - Upper Body Dressing -- 2 Lower Body Dressing Dressing Location/Position -- In bed (donned underwear in w/c) Level of Assistance -- Substantial/Max assistance Comment -- Pt doffed pants in bed level requiring Max A due to pt having difficulty maintianing the bridge while simultaneusly completing the task pf pulling pants off of hips due to L side weakness and R hand weak grasp. Therapist doffed brief in walk in shower due to time contriants. Pt donned underwear in w/c with Max A with threading on L leg and to pulley mortiser operator L hip in standing. Lower Body Dressing Assistance Needed -- Physical assistance Physical Assistance Level -- 51%-75% CARE Score - Lower Body Dressing -- 2 Footwear Dressing Activity Component(s) -- Socks;Shoes Dressing Location/Position -- Sitting edge of bed Level of Assistance -- Substantial/Max assistance Comment -- Due to time contraints therapist put on socks for pt. Eating Activity Component(s) Food to mouth;Use standard utensils;Scooping food;Liquid to mouth -- Diet 1:1 SPV -- Level of Assistance Supervision/touching assistance -- Comment Pt required SPV for saftey reasons during eating seated in the w/c. Pt required VC for food spillage on the L side of the mouth. Pt benefited from cues to check for pocketing on the L side of the mouth and to abide by JAVA SDET recommendations to ensure one sip per every two bites. -- Eating Assistance Needed Supervision;Verbal cues;Set-up / clean-up -- Physical Assistance Level No physical assistance -- CARE Score - Eating 4 -- Toileting Activity Component(s) -- Managing clothing before;Managing clothing after;Perineal hygiene, front Level of Assistance -- Partial/Mod assistance Comment -- Pt had the urge to go to the bathroom for urine voiding before going to the shower. Pt was able to complete perineal hygiene with SPV. Pt required Mod A with clothing management on the L side for balance and safety. Toileting Position/Set Up -- On toilet Toilet Transfers Toilet Transfer To/From -- Wheelchair;Toilet Transfer Type -- Stand step Level of Assistance -- Partial/Mod assistance Assistive Devices And Adaptive Equipments -- No device Toilet Transfers Comments -- Pt required Mod A to steady and weight-shift in standing. Pt benefitted from VC to attend stepping with L leg. Toilet Transfer Assistance Needed -- Physical assistance Physical Assistance Level -- 26%-50% CARE Score - Toilet Transfer -- 3 Bed Mobility Bed Mobility -- Yes Bed Mobility 1 Level of Assistance 1 -- Partial/Mod assistance Bed Mobility Comments 1 -- Pt required Mod A to assist with BLE onto bed. Bed Mobility To/From -- Sitting EOB to supine Assistive Devices And Adaptive Equipments -- Bed rail Bed Mobility 2 Level of Assistance 2 -- Partial/Mod assistance Bed Mobility Comments 2 -- Pt required cues for hand placement and leaning forward when sitting up and Mod A for lowering LE. Bed Mobility To/From -- Supine to sit on EOB Assistive Devices And Adaptive Equipments -- Bed rail Transfers Transfer Yes Yes Transfer 1 Technique 1 Stand step Stand step Level of Assistance 1 Partial/Mod assistance Partial/Mod assistance Trials/Comments 1 Pt was able to go from sit to stand from the w/c throughout the session with Min A with VC to move LE for stepping forwards and backwards. Pt was able to t/f from w/c to the bed with Mod A for standing balance and weightshifting. It was noted that the pt moves better going to the R side than from the L side. Transfer To/From [id number];Wheelchair Wheelchair;Bed Assistive Devices And Adaptive Equipments Walker, front-wheeled No device Therapeutic Procedures Time Entry Neuromuscular Re-Education Time Entry 30 -- Balance/Neuromuscular Re-Education Balance/Neuromuscular Re-Education Activity 1 Pt particapted in a standing balance activity at a table top working on putting a puzzle together. Pt reached for puzzle pieces with the affected L arm to work on functional reach in a gravity reduced plane. It was noted that the pt activiated LUE proximally for 1 second at a time to L hand off of table and place L hand on top of puzzle piece. Pt used L hand to bring the puzzle piece to the R hand. Pt used the R hand to place the puzzle piece in the wooden puzzle insert that was placed on the L side to work on visual scanning. Pt showed improvement in attending to the L side when cued. Therapist blocked LLE and supported on the pt L side to support LUE in extension on tabletop and the hand and elbow when weightshifting to the L to promote weight-bearing. Pt able to maintain standing balance with a significant lateral lean to L side during the task and benefitted from Mod A and VC to go back to midline. Pt benefitted from intermitted seated breaks in w/c. -- Position 1 Standing -- OT Assessment OT Assessment Results -- Impaired ADL status;Impaired upper extremity range of motion;Impaired upper extremity strength;Impaired safe judgment during ADL;Impaired cognition;Impaired endurance;Increased pain;Impaired gross motor control;Impaired fine motor control;Impaired functional mobility;Visual deficit OT Assessment -- Pt with good tolerance in today's session with shown improvement to awareness to the L side of her enviroment while completing functional tasks. Pt continues to work on increasing LUE/LLE activation, noted increasing volitonal movement at the proximal LUE with lifting her LUE up on the table top against gravity. Pt demonstrated tolerance in functional activities in dynamic standing balance. Pt continues to require physical and verbal cues during standing tasks to weightshift to the R side to go back to midline. Pt continues to benefit from OT services to maximize saftety and independence in functional activities and t/f. Prognosis -- Good Evaluation/Treatment Tolerance -- Patient tolerated treatment well Medical Staff Made Aware -- Yes Strengths -- Attitude of self Barriers to Discharge -- Insight into deficits Patient Education: Education Documentation No documentation found. Education Comments No comments found. Goals: Encounter Goals Encounter Goals (Active) Patient will perform upper body dressing with wheelchair level with mod assist to improve independence with dressing. (Progressing) Start: 07/24/24 Expected End: 08/20/24 Patient will perform lower body dressing with analytics manager at wheelchair level with mod assist to improve independence with dressing. (Progressing) Start: 07/24/24 Expected End: 08/20/24 Within 2 weeks of starting therapy, the patient and/or family/caregiver will demonstrate independence and be compliant in a written HEP in order to maximize gains made during therapy. (Progressing) Start: 07/24/24 Expected End: 08/20/24 Pt and/or caregiver(s) will have all appropriate DME, recommendations, or completed prescriptions to maximize pt's safety and independence at discharge. (Progressing) Start: 07/24/24 Expected End: 08/20/24 Patient and/or caregivers will verbalize understanding of home program including safety tips, equipment instructions, and home exercises. (Progressing) Start: 07/24/24 Expected End: 08/20/24 Patient will participate in forced use activities using the affected upper extremity with min assistance to inhibit abnormal movement patterns. (Progressing) Start: 07/24/24 Expected End: 08/20/24 Patient will tolerate weight bearing through their effected upper extremity for 25-30 minutes with min assist. (Progressing) Start: 07/24/24 Expected End: 08/20/24 Supervising Occupational Therapist: Tiffanie Shane Patient progress towards current goals and plan of care was discussed in person with supervising Occupational Therapist. CHHAYA Gray Cosigned by Tiffanie Shane OT at 08/04/2024 5:42 PM CST CAL RECEPTIONIST CAL RECEPTIONIST * Ange Roman CCC-JAVA SDET - 08/04/2024 10:30 AM MEDICAL RECEPTIONIST Speech-Language Pathology Treatment Note Patient Name: Toney Martel Today's Date: 08/04/2024 Preferred Language: Guamanian Plan: Treatment Plan/Goals Established with Patient/Caregiver: Yes Barriers to Discharge: Insight into deficits, Complicated medical history Treatment/Interventions: Communication functioning, Swallow function, Patient/family education, Instrumental Assessments JAVA SDET Plan: Skilled JAVA SDET Frequency: 5-7 times per week Duration: 4 weeks JAVA SDET Discharge Recommendations: Home Health JAVA SDET NPO: No Swallow Precautions: Alternate liquids/solids, Clear pocketing, Feed only when alert, Oral hygiene after meals, Upright to 90 degrees, Small bites/sips Solid Consistency: Minced & Moist Liquid Viscosity: Thin Liquids Medications: Crushed in puree with MD approval Supervision Recommended: 1:1 Supervision Details: verbal and tactile cues to swallow, spoon down after each bite, alternate bites/sips, reduce distractions Compensatory Strategies for Dysphagia: Additional dry swallow(s) between bites/sips, Alternate solids and liquids, Slow rate, Small bites/sips, Oral hygiene, Position as upright as possible during oral intake, Remain upright after oral intake, Effortful swallow, Feed only when alert, Reduce environmental distractions during mealtimes Rehabilitation Exercises for Dysphagia Management: Effortful swallow, VERONICA (Effortful, intensive jaw opening exercise), Shaker and/or modified Shaker maneuver Therapeutic Recommendations: Dysphagia tx, Trials with JAVA SDET 08/04/24 1030 Time Calculation Start Time 1030 Stop Time 1100 Time Calculation (min) 30 min Pain Assessment Pain Assessment DVPRS Pain Score 0 Pain Rating Scale (DVPRS) 0 Swallow Swallow Treatment Time 15 Swallow Activities PO trials of reg cracker Swallow Comments pt seen with trial of reg cracker with no overt s/s aspiration noted, min oral residue cleared with lingual sweep and liquid wash Speech/Voice Speech Treatment Time 15 Speech Activities speech drills Speech Comments pt reviewed SLOP speech strats with min cues, practiced simple sentences using strats with min cues, 80% intelligibility Expression Score Expresses Complex or Abstract Information Without Prompting or Cueing Yes Expression Mode Vocal Expresses Basic Daily Needs and Ideas Patient expresses basic daily needs and ideas more than 90% of the time requires prompting less than 10% of the time to be understood Functional Cosby Measure Expression Standby prompting - 5 Encounter Goals Encounter Goals (Active) STG - Patient will use speech intelligibility Intervention at conversational level (Progressing) Start: 07/24/24 Expected End: 08/04/24 LTG - Demonstrate reasoning (Progressing) Start: 07/24/24 Expected End: 08/21/24 LTG - Demonstrate visual scanning during a reading task (Progressing) Start: 07/24/24 Expected End: 08/21/24 LTG - Provides multi-step/complex solutions (Progressing) Start: 07/24/24 Expected End: 08/21/24 STG - Complete a 15-30 minute complex attention task (Progressing) Start: 07/24/24 Expected End: 08/21/24 STG - Demonstrate alternating attention by being able to shift the focus of attention between tasks/activities/ideas (Progressing) Start: 07/24/24 Expected End: 08/21/24 STG - Engage in deductive reasoning (Progressing) Start: 07/24/24 Expected End: 08/21/24 STG - Identify appropriate solutions to a problem (Progressing) Start: 07/24/24 Expected End: 08/21/24 STG - Identify cognitive/physical strengths and limitations (Progressing) Start: 07/24/24 Expected End: 08/21/24 LTG - Patient will improve on swallowing outcome measure (Progressing) Start: 07/24/24 Expected End: 08/21/24 STG - Improve airway protection (Progressing) Start: 07/24/24 Expected End: 08/21/24 STG - Improve bolus control (Progressing) Start: 07/24/24 Expected End: 08/21/24 STG - Increase the amount of food/liquid given by mouth while decreasing amount given by tube (Progressing) Start: 07/24/24 Expected End: 08/21/24 Encounter Goals (Resolved) STG - Participate in an instrumental swallow study (Completed) Start: 07/24/24 Expected End: 08/21/24 Resolved: 07/30/24 XIN MantillaSLP CAL RECEPTIONIST * Michael Lopez PTA - 08/04/2024 8:30 AM MEDICAL RECEPTIONIST Physical Therapy Treatment Session Note Patient Name: Toney Martel Today's Date: 08/04/2024 Preferred Language: Guamanian Assessment & Plan Assessment: PT Assessment: Pt was able to tolerate therapy session well with minimal fatigue reported towards the end of session. Pt was able to work on ambulation for various distances using the SBQC including working on turns with therapist emphasizing turning feet completely. Pt has demonstrated good ability to manage SBQC and is willing to work hard in therapy to progress and improve. Prognosis: Good Barriers to Discharge: Insight into deficits Evaluation/Treatment Tolerance: Patient tolerated treatment well Medical Staff Made Aware: Yes Strengths: Attitude of self, Support and attitude of living partners, Support of extended family/friends Plan: Treatment Plan/Goals Established with Patient/Caregiver: Yes PT Frequency: 5-7 times per week PT Discharge Recommendations: Inpatient rehab facility placement Equipment Recommended: DME wheelchair PT Planned Treatment: Balance training, Basic activities of daily living, Bed mobility training, Body weight support treadmill training, Caregiver training, Equipment training, Gait training, Group therapy, Manual therapy, Neuromuscular reeducation, Orthotic training, Patient education, Positioning, Posture/Body mechanics training, Seating, Stair training, Therapeutic activities, Therapeutic exercises, Transfer training, Wheelchair assessment and management Duration: 3-4 weeks Subjective Pt was seated in w/c when therapist arrived and pt was agreeable to therapy. At the end of session pt was left seated in w/c with maura belt donned and call light in reach. Pain: Pain Assessment Pain Assessment: DVPRS (08/04/2024829) Pain Score: 0 (08/04/2024829) Pain Rating Scale (DVPRS): No pain (08/04/2024829) Clinical Progression: Not changed (08/04/2024829) Vital Signs: Patient Vitals for the past 12 hrs: BP MAP (mmHg) Pulse Resp SpO2 08/04/24 0610 -- -- 64 18 95 % 08/04/24 0610 137/65 89 -- -- -- No data found. Objective 08/04/24829 PT Last Visit PT Received On 08/04/24 Response to Previous Treatment Patient with no complaints from previous session. Time Calculation Start Time 0830 Stop Time 0930 Time Calculation (min) 60 min Activity Tolerance Endurance Tolerates 30 min exercise with multiple rests Sitting Balance Sits without support for more than 30 sec Early Mobility/Exercise Safety Screen Proceed with mobilization - No exclusion criteria met Pain Assessment Pain Assessment DVPRS Pain Score 0 Pain Rating Scale (DVPRS) 0 Clinical Progression Not changed Health Conditions Pain Interference with Therapy Activities Rarely or not at all Roll Left and Right Assistance Needed Physical assistance Physical Assistance Level 26%-50% CARE Score - Roll Left and Right 3 Lying to Sitting on Side of Bed Assistance Needed Physical assistance Physical Assistance Level 26%-50% CARE Score - Lying to Sitting on Side of Bed 3 Sit to Lying Assistance Needed Physical assistance Physical Assistance Level 26%-50% CARE Score - Sit to Lying 3 Transfers Transfer Yes Transfer 1 Technique 1 Stand step Level of Assistance 1 Partial/Mod assistance Trials/Comments 1 Pt was able to perform multiple sit to stands throughout session with therapist providing Min A and cueing to push from chair Transfer To/From Xox-jl-Bnugu/Rofob-ss-Geh Assistive Devices And Adaptive Equipments Cane, small base quad Chair/Bys-yg-[id number] Transfer Assistance Needed Physical assistance Physical Assistance Level 25% or less CARE Score - Chair/Jph-cx-Wpifa Transfer 3 Sit to Stand Assistance Needed Physical assistance Physical Assistance Level 25% or less CARE Score - Sit to Stand 3 Car Transfer Reason if not Attempted Environmental limitations CARE Score - Car Transfer 10 Gait Training Gait Training Time Entry 60 Gait Training Activity Yes Gait Training Activity 1 Distance (enter in feet) 10ft X 3 rounds Assistive Devices And Adaptive Equipments Cane, small based quad Level of Assistance 1 Partial/Mod assistance Gait Training Activity 1 Comment Pt was able to ambualate using the SBQC alongside rail as therapist provided Min A and guarded on the L side. Pt needed cueing for the sequence, taking a large enough step and also keeping head up. Pt was able to advance LLE with no assistance from therapist needed. Surface And Method Indoor;Even surface General Gait Deviations Decreased lorena;Narrow base of support Gait Training Activity 2 Distance (enter in feet) 1ft Assistive Devices [employer] Adaptive Equipments Cane, small based quad Level of Assistance 2 Partial/Mod assistance Gait Training Activity 2 Comment Pt worked on making turns to the L and R with therapist cueing pt on turning cane and feet. Pt has a tendency to step foot fwd instead of pivoting foot leading to wide turning radius. Increased difficulty noted turning to the L compared to the R. With practice and cueing pt was able to make some improvement which was noted in further walks. Surface And Method Indoor;Even surface Gait Training Activity 3 Distance (enter in feet) 40ft X 2 Assistive Devices And Adaptive Equipments Cane, small based quad Level of Assistance 3 Partial/Mod assistance Gait Training Activity 3 Comment Pt was able to ambualte to mirror in front of pt with therapist on L side and rehabilitation consultant providing SPV. Pt was able to consistently advance LLE with therapist having donned derek wrap to help with DF. Pt needed cueing to use mirror for visual feedback and to avoid looking down at feet. Pt was able to follow sequence well with some initial cueing needed. Pt rested in w/c between bouts of ambulation. Surface And Method Indoor;Even surface Gait Training Activity 4 Distance (enter in feet) 75ft, 75ft, 85ft, 50ft Assistive Devices And Adaptive Equipments Cane, small based quad Level of Assistance 4 Partial/Mod assistance Gait Training Activity 4 Comment Pt was able to stand and then ambulate straight ahead toward room with therapist providing Min A at gait belt and tech following with w/c. Therapist noted that as pt fatigued there were increased instances of catching of L foot on ground and pt needed cueing to sit and rest as they were unable to express when they were fatigued. Pt completed 4 different rounds of ambulation with fatigue being the limiting factor. Surface And Method Indoor;Even surface Walk 10 Feet Assistance Needed Physical assistance Physical Assistance Level 25% or less Comment Using SBQC CARE Score - Walk 10 Feet 3 Walk 50 Feet with Two Turns Assistance Needed Physical assistance Physical Assistance Level 25% or less Comment Using SBQC CARE Score - Walk 50 Feet with Two Turns 3 Walk 150 Feet Reason if not Attempted Safety concerns CARE Score - Walk 150 Feet 88 Walking 10 Feet on Uneven Surfaces Reason if not Attempted Safety concerns CARE Score - Walking 10 Feet on Uneven Surfaces 88 1 Step (Curb) Reason if not Attempted Safety concerns CARE Score - 1 Step (Curb) 88 4 Steps Reason if not Attempted Safety concerns CARE Score - 4 Steps 88 12 Steps Reason if not Attempted Safety concerns CARE Score - 12 Steps 88 Picking Up Object Reason if not Attempted Safety concerns CARE Score - Picking Up Object 88 Wheel 50 Feet with Two Turns Assistance Needed Physical assistance Physical Assistance Level 26%-50% CARE Score - Wheel 50 Feet with Two Turns 3 Type of Wheelchair/Scooter Manual Wheel 150 Feet Assistance Needed Physical assistance Physical Assistance Level Total assistance CARE Score - Wheel 150 Feet 1 Type of Wheelchair/Scooter Manual PT Assessment PT Assessment Pt was able to tolerate therapy session well with minimal fatigue reported towards the end of session. Pt was able to work on ambulation for various distances using the SBQC including working on turns with therapist emphasizing turning feet completely. Pt has demonstrated good ability to manage SBQC and is willing to work hard in therapy to progress and improve. Prognosis Good Barriers to Discharge Insight into deficits Evaluation/Treatment Tolerance Patient tolerated treatment well Medical Staff Made Aware Yes Strengths Attitude of self;Support and attitude of living partners;Support of extended family/friends Patient Education: Education Documentation No documentation found. Education Comments No comments found. Goals: Encounter Goals Encounter Goals (Active) Rolling: mod-independent (Progressing) Start: 07/23/24 Expected End: 08/13/24 Lying<>Sitting<>Lying: CGA/supervision with paris technique (Progressing) Start: 07/23/24 Expected End: 08/13/24 Pt will participate in pre-gait activities emphasizing B LE activation, proper sequencing, midline orientation, reciprocal movements, and controlled WS to facilitate safe gait training. (Progressing) Start: 07/23/24 Expected End: 08/13/24 Pt will be tolerate ambulation > 100ft CGA with LRAD in order to address safe locomotion necessary for discharge to most appropriate location and return to functional activity. Start: 08/03/24 Expected End: 08/13/24 Within 2 weeks of starting therapy, the patient and/or family/caregiver will demonstrate independence and be compliant in a written HEP in order to maximize gains made during therapy. (Progressing) Start: 07/23/24 Expected End: 08/13/24 Pt and/or caregiver(s) will have all appropriate DME, recommendations, or completed prescriptions to maximize pt's safety and independence at discharge. (Progressing) Start: 07/23/24 Expected End: 08/13/24 Transfers: Juancho stand step with LRAD (Progressing) Start: 07/23/24 Expected End: 08/13/24 Sit to Stand: CGA with LRAD (Progressing) Start: 07/23/24 Expected End: 08/13/24 Pt will be able to sit for at least 5 mins with support of no UE with midline orientation, erect posture, even KATY, appropriate WBing and ability to reach > 5" outside KATY without LOB to facilitate improved standing to return to functional tasks. (Progressing) Start: 07/23/24 Expected End: 08/13/24 Patient able to propel WC ~300ft supervision with B LE propulsion with appropriate safety awareness, midline orientation, and obstacle avoidance to facilitate safe community mobility. (Progressing) Start: 07/23/24 Expected End: 08/13/24 Supervising Physical Therapist: Ange Soler, ALEJANDRO Patient progress towards current goals and plan of care was discussed in person with supervising Physical Therapist. Michael Lopez PTA CAL RECEPTIONIST * Monet Blake MD - 08/03/2024 11:02 AM MEDICAL RECEPTIONIST Physical Medicine and Rehabilitation Progress Note - Daily Admission Date: 07/23/2024 SUBJECTIVE:Patient seen prior to therapy. She reports the pain and numbness in her arm has improved with the increase of her gabapentin. No other questions or concerns at this time. Last BM Date: 08/02/24Stool Appearance: Soft, Formed Stool Amount: Medium Labs BMP:Results from last 7 days Lab Units 08/02/24 0409 CREATININE mg/dL 0.56 BUN mg/dL 14 SODIUM mEq/L 143 POTASSIUM mEq/L 4.6* CHLORIDE mEq/L 108* CO2 mEq/L 22.6 CBC:Results from last 7 days Lab Units 08/02/24 0409 WBC 10*3/uL 4.61 HEMOGLOBIN g/dL 10.7* HEMATOCRIT % 35.6 MCV fL 88.6 PLATELETS 10*3/uL 385 Last BM Date: 08/02/24Stool Appearance: Soft, Formed Stool Amount: Medium PRNs in past 24 hours: VitalsVitals: 08/02/24 1941 08/03/24 0642 08/03/24 0643 08/03/24 06 BP: 138/74 Pulse: 65 62 Resp: 16 18 Temp: 36.7 ?C (98 ?F) SpO2: 95% 98% Intake & OutputI/O last 3 completed shifts: In: 800 (11.1 mL/kg) [P.O.:800] Out: 1000 (13.9 mL/kg) [Urine:1000 (0.4 mL/kg/hr)] Weight: 71.8 kg MedicationsScheduled: aspirin, 81 mg, Daily atorvastatin, 80 mg, Nightly Docusate Sodium, 100 mg, BID Enteral Free water Flush, 240 mL, q6h Fibersource HN, 375 mL, 4x daily gabapentin, 300 mg, BID heparin, 5,000 Units, q8h senna, 10 mL, Nightly PRNs:acetaminophen, 650 mg, q4h PRN bisacodyl, 10 mg, Nightly PRN dextrose, 12.5 g, Once PRN glucagon, 1 mg, Once PRN melatonin, 3 mg, Nightly PRN sodium chloride, 10 mL, PRN Physical Exam:Constitutional: No acute distress, appearing comfortable. HEENT: NCAT, no scleral icterus, MMM. Cardiovascular: No lower limb edema. Lower limbs warm. Respiratory: Breathing comfortably on room air, no tachypnea. Gastrointestinal: Soft, non-distended abdomen. Genitourinary: Deferred. No Edwards. Musculoskeletal: Full painless passive range of motion of bilateral upper and lower limbs. Skin: No rashes on limited exam of exposed areas. Psychiatric: No anxiety or agitation. Neurologic: awake, alert, left sided neglect, Dysarthria, activating left hip flexors, 4/5 strength at ankle. Keyla Martel is a 78Y F PMH of HTN and carpal tunnel syndrome who was admitted on 07/15/24 on for evaluation of wake up L sided plegia, LFD and R gaze deviation. CTP w/ established M5/M6 region stroke, but 48ml volume in posterior parietal and occipital regions. Patient taken for emergent thrombectomy. within WAKE UP protocol window IAT TICI3. MRI showing R MCA/BIOINFORMATICS TECHNICIAN/SHAWANDA strokes. Failed FEES 07/20, PEG placed 07/22/23. Patient admitted to [facility] on 07/23/24. Acute ischemic right MCA stroke (HCC) - Suspected Etiology: Large artery atherosclerosis - CT: ASPECTS 6, hyperdense MCA - CTA: acute occlusion in R ICA and distal reconstitution of flow in MCA territory but M2 and P-com occlusion. - CTP: established M5/M6 region stroke, but 48ml volume in posterior parietal and occipital regions. - MRI brain w/o contrast R MCA/BIOINFORMATICS TECHNICIAN infarct - TTE- EF: 60-65%, atrium normal - Atorvastatin 80 mg daily - ASA 81 mg daily - monitor neurological status Impaired mobility and ADLsLeft hemiparesis - PT/OT following for strengthening, increased independence with mobility and ADLs, bowel and bladder management, DME evaluation, family training, improvement in balance deficits, improvement in endurance/exercise tolerance Cognitive communication deficitsDysarthria - Continue therapies with JAVA SDET for evaluation of language impairments and cognition - Neuropsychology consultation if/when appropriate for evaluation of cognition and mood Dysphagia- NPO, continue bolus Tfs and enteral FWF - Continue therapies w/ JAVA SDET. 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 Straight cath if PVR > 200cc. Pain- Continue Tylenol as needed for nociceptive pain - 08/02 increase gabapentin to 300mg BID for ongoing neuropathic pain Skin- Recommend thorough skin evaluation as patient is at risk for pressure injuries. - If patient is unable to reliably change position independently, recommend every 4-6 hours turns to prevent skin breakdown, daily skin checks. Chronic medical co-morbidities:HTN: BP control, BP <140 HLD: statin Prophylaxis- DVT: SQH Follow-Ups Please follow up [place] [facility] within 1 [place], [place] [facility] within 3 months for PEG tube, and PCP within 1-2 weeks. Cosigned by Salomon Rubio DO at 08/03/2024 12:15 PM MEDICAL RECEPTIONIST CAL RECEPTIONIST CAL RECEPTIONIST Associated attestation - Salomon Rubio DO - 08/03/2024 12:15 PM MEDICAL RECEPTIONIST I saw and evaluated the patient with the resident, participating in the kiran portions of the service. I reviewed the resident's note and agree with the documented findings and plan of care. PM&R Attending Attestation I performed a history and physical examination of the patient and I discussedthe management with the resident. I reviewed the note and agree with the documented findings and plan of care with any exceptions below. We conducted interdisciplinary team conference today- see separate note documenting progress of therapies and goals for remaining in inpatient rehabilitation. I spent more than 50 minutes total in patient care ([id number] and on the rehab floor/unit) including discussion with nursing, therapy, social work and case management during interdisciplinary team conference (discussing patients active medical issues, progress in therapies, and discharge planning) and discussion with the patient/family (regarding current medical status and discharge planning). Salomon Rubio [facility] #[id number] * Tiffanie Shane, OT - 08/03/2024 11:00 AM MEDICAL RECEPTIONIST Treatment Session Note Patient Name: Toney Martel Today's Date: 08/03/2024 Preferred Language: Guamanian Assessment & Plan Assessment: OT Assessment Results: Impaired ADL status, Impaired cognition, Impaired safe judgment during ADL, Impaired upper extremity strength, Impaired upper extremity range of motion, Impaired endurance, Visual deficit, Impaired functional mobility, Impaired fine motor control, Impaired gross motor control, Impaired IADLs, Impaired left upper extremity, Impaired sensation, Increased pain OT Assessment: Pt with good tolerance to session with increasing proximal LUE activation and tolerance forced LUE/LLE WBing in standing and quadruped tasks. Pt continues to require cueing to visually attend to L-side of her body and environment while completing functional tasks. Noted deficits with motor planning and coordination primarily with L side. Pt indicated back pain and continues to present with LUE swelling (staff aware), may benefit from addressing with compression garments for edema mgmt. Overall, pt progressing towards OT goals and will continue to benefit from skilled, intensive OT to maximize pt's safe and independent participation with ADLs and functional txfs. Prognosis: Good Evaluation/Treatment Tolerance: Patient tolerated treatment well Strengths: Attitude of self, Support and attitude of living partners, Support of extended family/friends Barriers to Discharge: Insight into deficits, Past medical history, Safety awareness Plan: Treatment Plan/Goals Established with Patient/Caregiver: Yes Treatment Interventions: ADL retraining, Cognitive reorientation, Endurance training, Neuromuscular reeducation, Orthotic/Orthotic management, Patient/family training, Scar management OT Plan: Skilled OT OT Frequency: 5-7 times per week Equipment Recommended: DME wheelchair, Wheelchair- seat cushion pressure reducing, Wheelchair- accessories, Wheelchair- back OT Planned Treatments: Activities of Daily Living, Neuromuscular reeducation, Balance training, Coordination, Equipment training, Joint protection, Home program, Orthotic, Patient education, Safety education, Seating/Positioning, Therapeutic activities, Therapeutic exercises, Splinting, Caregiver training, Work simplification, Energy conservation training OT Duration: 1-2 weeks Subjective Back pain indicated but participatory with therapy. No acute distress noted. LUE swelling still present, will benefit from trials with compression garments to address edema mgmt. No family present during session. Vital Signs: Patient Vitals for the past 12 hrs: BP MAP (mmHg) Pulse Resp SpO2 08/03/24 1554 -- -- 67 16 99 % 08/03/24 1554 138/69 92 -- -- -- 08/03/24 0643 -- -- 62 18 98 % 08/03/24 0643 138/74 95 -- -- -- No data found. Objective 08/03/24 1105 08/03/24 1300 General Family/Caregiver Present No No Time Calculation Start Time 1105 1300 Stop Time 1135 1405 Time Calculation (min) 30 min 65 min Pain Assessment Pain Assessment -- DVPRS Pain Score -- 3 Pain Rating Scale (DVPRS) -- 3 Pain Type -- Acute pain Pain Location -- Back Pain Orientation -- Mid;Lower Pain Descriptors -- Aching Response to Interventions -- Pt reports mid-lower back pain during standing activites; pt given intermittent rest breaks. ADL Self Care/Home Management (ADLs) Time Entry 30 -- Grooming Grooming Comments Pt was seated in w/c with table in front of her and therapist set up oral hygiene to L and R sides of the table. Pt benefitted from hand over hand assist to utilize L hand to act as a stabalizer to steady to the toothbrush while using R hand to apply toothpaste. Pt benfitted from to attend to the L side for item retrival. Pt demonstrated anterior left side spillage. Pt may benefit from mirror for visual feedback. -- Activity Component(s) Oral hygiene -- Grooming Location Wheelchair -- Level of Assistance Partial/Mod assistance -- Oral Hygiene Assistance Needed Physical assistance;Supervision;Set-up / clean-up -- Physical Assistance Level 25% or less -- CARE Score - Oral Hygiene 3 -- Toileting Activity Component(s) Managing clothing before;Managing clothing after;Perineal hygiene, front;Perineal hygiene, back -- Level of Assistance Partial/Mod assistance -- Comment Pt had the urge to urine and requested to go the bathroom. Pt was able to complete perineal hygiene seated with Mod A for posterior hygiene. Pt required Mod A with clothing management in standing to doff and don the pants on her L side. Pt attempted to use the L hand but was not able to use it functionally. -- Toileting Position/Set Up On toilet -- Toileting Hygiene Assistance Needed Physical assistance;Verbal cues -- Physical Assistance Level 26%-50% -- CARE Score - Toileting Hygiene 3 -- Toilet Transfers Toilet Transfer To/From Wheelchair;Toilet -- Transfer Type Stand step -- Level of Assistance Partial/Mod assistance -- Assistive Devices And Adaptive Equipments No device -- Toilet Transfers Comments Pt required Mod A to steady and weight shift in standing. Pt benefiited from to attend and coordinate to the L side. -- Toilet Transfer Assistance Needed Physical assistance;Verbal cues -- Physical Assistance Level 26%-50% -- Comment Pt performed stand step transfer with Min A-Mod A for VC to step with L leg and steadying in standing. -- CARE Score - Toilet Transfer 3 -- Therapeutic Procedures Time Entry Neuromuscular Re-Education Time Entry -- 50 Therapeutic Activity Time Entry -- 10 Therapeutic Activity Therapeutic Activity 1 -- Pt seated on mat, practiced with looped pillow case to simulate arm sleeve as a preparatory activity for UB dressing. Pt dressing LUE with R hand to work on her visual attention to the L side. Pt benefitted from the mirror to visually attend to her L side. Balance/Neuromuscular Re-Education Balance/Neuromuscular Re-Education Activity 1 -- Pt performed weightshifting in front of mirror and benefitited from VC to self correct for midline positioning. Pt worked on placing 9 velcro blocks onto the mirror to the L and R side to work on visual scanning. Pt benefitted from VC for placement of blocks onto the velcro to work on visual attention to the L side. It was noted that the pt had a lateral lean to the L and required frequent VC to weightshift to the R. Pt required prompting to look to the L side due to lack of intiation, once prompted pt was able to attend to the L side within 5 seconds. Position 1 -- Standing Balance/Neuromuscular Re-Education Activity 2 -- Pt performed x3 quadruped for ~60 sec each on the mat to work on weight-bearing through the L extremities. Pt required blocking from L side to stabilize L hip and L elbow. Pt benefitted from rolled towel under L hand to promote comfort through weightbearing through open palm arm extention. Pt required Mod A for transitioning in and out of quadruped postion. Position 2 -- Other (Comment) (quadruped) Patient Education: Education Documentation No documentation found. Education Comments No comments found. Goals: Encounter Goals Encounter Goals (Active) Patient will perform upper body dressing with wheelchair level with mod assist to improve independence with dressing. (Progressing) Start: 07/24/24 Expected End: 08/20/24 Patient will perform lower body dressing with analytics manager at wheelchair level with mod assist to improve independence with dressing. (Progressing) Start: 07/24/24 Expected End: 08/20/24 Within 2 weeks of starting therapy, the patient and/or family/caregiver will demonstrate independence and be compliant in a written HEP in order to maximize gains made during therapy. (Progressing) Start: 07/24/24 Expected End: 08/20/24 Pt and/or caregiver(s) will have all appropriate DME, recommendations, or completed prescriptions to maximize pt's safety and independence at discharge. (Progressing) Start: 07/24/24 Expected End: 08/20/24 Patient and/or caregivers will verbalize understanding of home program including safety tips, equipment instructions, and home exercises. (Progressing) Start: 07/24/24 Expected End: 08/20/24 Patient will participate in forced use activities using the affected upper extremity with min assistance to inhibit abnormal movement patterns. (Progressing) Start: 07/24/24 Expected End: 08/20/24 Patient will tolerate weight bearing through their effected upper extremity for 25-30 minutes with min assist. (Progressing) Start: 07/24/24 Expected End: 08/20/24 Tiffanie Shane OT CAL RECEPTIONIST * Isa Howard CCC-JAVA SDET - 08/03/2024 10:00 AM MEDICAL RECEPTIONIST Speech-Language Pathology Treatment Note Patient Name: Toney Martel Today's Date: 08/03/2024 Preferred Language: Guamanian Assessment & Plan Assessment: Tolerated session well. Plan: Treatment Plan/Goals Established with Patient/Caregiver: Yes Barriers to Discharge: Insight into deficits, Complicated medical history Treatment/Interventions: Communication functioning, Swallow function, Patient/family education, Instrumental Assessments JAVA SDET Plan: Skilled JAVA SDET Frequency: 5-7 times per week Duration: 4 weeks JAVA SDET Discharge Recommendations: Home Health JAVA SDET NPO: No Swallow Precautions: Alternate liquids/solids, Clear pocketing, Feed only when alert, Oral hygiene after meals, Upright to 90 degrees, Small bites/sips Solid Consistency: Minced & Moist Liquid Viscosity: Thin Liquids Medications: Crushed in puree with MD approval Supervision Recommended: 1:1 Supervision Details: verbal and tactile cues to swallow, spoon down after each bite, alternate bites/sips, reduce distractions Compensatory Strategies for Dysphagia: Additional dry swallow(s) between bites/sips, Alternate solids and liquids, Slow rate, Small bites/sips, Oral hygiene, Position as upright as possible during oral intake, Remain upright after oral intake, Effortful swallow, Feed only when alert, Reduce environmental distractions during mealtimes Rehabilitation Exercises for Dysphagia Management: Effortful swallow, VERONICA (Effortful, intensive jaw opening exercise), Shaker and/or modified Shaker maneuver Therapeutic Recommendations: Dysphagia tx, Trials with JAVA SDET 08/03/24 1000 Time Calculation Start Time 1000 Stop Time 1100 Time Calculation (min) 60 min JAVA SDET Last Visit Most Recent JAVA SDET Session 08/03/24 General Others Present JAVA SDET student [place] Pain Assessment Pain Rating Scale (DVPRS) 0 Swallow Swallow Treatment Time 30 Swallow Activities Mastication Swallow Comments Patient participated in PO trials of regular solids with upper denture in place to assess readiness for diet texture advancement. Dentures flapping. Patient with decreased bolus formation and control. Education provided regarding swallow safety and oral deficits. Cognitive-Linguistic Skills Cognitive-Linguistic Skills Treatment Time 30 Cognitive-Linguistic Training Activities Reasoning Cognitive Skills Comments Patient identified potential issues impacting consumption of meals. Patient still not receptive to gluing dentures during intake. FIM Scores: Comprehension: Comprehends Complex or Abstract Information Without Prompting or Cueing: Yes Mode of Comprehension: Auditory Understands Complex or Abstract Directions and Conversations: Requires extra time Functional Cosby Measure Comprehension: Modified independence - 6 Expression: Expresses Complex or Abstract Information Without Prompting or Cueing: No Expression Mode: Vocal Expresses Basic Daily Needs and Ideas: Patient expresses basic daily needs and ideas more than 90% of the time requires prompting less than 10% of the time to be understood Functional Cosby Measure Expression: Standby prompting - 5 Social Interaction: Interacts Appropriately Without Supervision: Yes Interacts Appropriately: Requires more than reasonable time to make decisions Functional Cosby Measure Social Interaction: Modified independence - 6 Problem Solving: Solves Complex Problems: No Solves Routine Problems: Patient requires supervision to solve routine problems only under stressful or unfamiliar conditions, but no more than 10% of the time Functional Cosby Measure Problem Solving: Standby prompting - 5 Memory: Recognizes, Remembers Routines, and Executes Requests Without Prompting: No Remembers and Executes Requests With Prompting: Patient requires prompting only under stressful or unfamiliar conditions, but no more than 10% of the time Functional Cosby Measure Memory: Standby prompting - 5 Outcome Measures: FIMS, IDDSI Patient Education: Education Documentation No documentation found. Education Comments No comments found. Goals: Encounter Goals Encounter Goals (Active) STG - Patient will use speech intelligibility Intervention at conversational level (Progressing) Start: 07/24/24 Expected End: 08/04/24 LTG - Demonstrate reasoning (Progressing) Start: 07/24/24 Expected End: 08/21/24 LTG - Demonstrate visual scanning during a reading task (Progressing) Start: 07/24/24 Expected End: 08/21/24 LTG - Provides multi-step/complex solutions (Progressing) Start: 07/24/24 Expected End: 08/21/24 STG - Complete a 15-30 minute complex attention task (Progressing) Start: 07/24/24 Expected End: 08/21/24 STG - Demonstrate alternating attention by being able to shift the focus of attention between tasks/activities/ideas (Progressing) Start: 07/24/24 Expected End: 08/21/24 STG - Engage in deductive reasoning (Progressing) Start: 07/24/24 Expected End: 08/21/24 STG - Identify appropriate solutions to a problem (Progressing) Start: 07/24/24 Expected End: 08/21/24 STG - Identify cognitive/physical strengths and limitations (Progressing) Start: 07/24/24 Expected End: 08/21/24 LTG - Patient will improve on swallowing outcome measure (Progressing) Start: 07/24/24 Expected End: 08/21/24 STG - Improve airway protection (Progressing) Start: 07/24/24 Expected End: 08/21/24 STG - Improve bolus control (Progressing) Start: 07/24/24 Expected End: 08/21/24 STG - Increase the amount of food/liquid given by mouth while decreasing amount given by tube (Progressing) Start: 07/24/24 Expected End: 08/21/24 Encounter Goals (Resolved) STG - Participate in an instrumental swallow study (Completed) Start: 07/24/24 Expected End: 08/21/24 Resolved: 07/30/24 XIN SandovalSLP CAL RECEPTIONIST * Ange Soler, PT - 08/03/2024 9:00 AM MEDICAL RECEPTIONIST Treatment Session Note Patient Name: Toney Martel Today's Date: 08/03/2024 Preferred Language: Guamanian Assessment & Plan Assessment: PT Assessment: (P) Pt was able to complete stand-step transfers from WC<>mat, WC<>BSC with CGA-Juancho and SBQC during today's session. Pt required verbal cues for sequencing steps and positioning SBQC and required physical assistance to right trunk to midline during stand-step transfer. Pt performed standing activities with Juancho initially and L knee block and then progressed to CGA and was able to do some self correction of trunk righting. Pt presented with L knee flexion when performing standing activities due to decreased attention to completing standing activity and focus on dual task. Patient was safe in standing and able to self right with minimal cuing in R knee flexion. Pt ambulated 50 ft total in today's session with Juancho and SBQC on R and demonstrated improvements with sequencing steps with SBQC. Pt had 2x bouts of LOB during ambulation and physical assistance to maintain stability. Pt would continue to benefit from gait training to improve walking quality and standing balance activities with even WB through BLE. Plan: Discharge: per rounds 08/03/24, discharge home with family care and 27/01 supervision 08/13/24 and therapy Family Training: not initiated and family decision on suitable caregivers DME Reccomendations: 16 inch WC ordered 07/28/24 and per CM note 07/31/24 is being delievered to home per son's request; ambulation DME pending progress Mode of Transportation on Discharge: son has an SUV that will be used to transport patient at this time; no car transfer scheduled yet Treatment Plan/Goals Established with Patient/Caregiver: Yes PT Frequency: 5-7 times per week PT Discharge Recommendations: Inpatient rehab facility placement Equipment Recommended: DME wheelchair PT Planned Treatment: Balance training, Basic activities of daily living, Bed mobility training, Body weight support treadmill training, Caregiver training, Equipment training, Gait training, Group therapy, Manual therapy, Neuromuscular reeducation, Orthotic training, Patient education, Positioning, Posture/Body mechanics training, Seating, Stair training, Therapeutic activities, Therapeutic exercises, Transfer training, Wheelchair assessment and management Duration: 3-4 weeks Subjective Pain: Pain Assessment Pain Assessment DVPRS DVPRS Pain Type Acute pain Acute pain Pain Location Back Abdomen Pain Orientation Mid Mid Pain Descriptors Aching Aching Pain Frequency Intermittent Intermittent Pain Onset Gradual Gradual Clinical Progression Not changed Not changed Response to Interventions Pt reports back pain during standing balance activities with relief during rest. -- Vital Signs: Patient Vitals for the past 12 hrs: BP MAP (mmHg) Pulse Resp SpO2 08/03/24 1554 -- -- 67 16 99 % 08/03/24 1554 138/69 92 -- -- -- 08/03/24 0643 -- -- 62 18 98 % 08/03/24 0643 138/74 95 -- -- -- No data found. Objective 08/03/24 0900 08/03/24 1400 General Others Present PT student Chani PT student Chani Time Calculation Start Time 0900 1400 Stop Time 1000 1430 Time Calculation (min) 60 min 30 min Activity Tolerance Endurance Tolerates 30 min exercise with multiple rests Tolerates 30 min exercise with multiple rests Sitting Balance Sits without support for more than 30 sec Sits without support for more than 30 sec Early Mobility/Exercise Safety Screen Proceed with mobilization - No exclusion criteria met Proceed with mobilization - No exclusion criteria met Therapeutic Activity Therapeutic Activity Time Entry 20 10 Therapeutic Activity 1 Stand step transfer with CGA-Juancho from WC<>mat, STS with CGA from WC<>mat, donning footwear STS from WC with physical assistance to right trunk to midline, Juancho stand-step transfer from WC<>BSC, toileting, LB dressing. WC mobility back to room Bed Mobility Bed Mobility No Yes Bed Mobility 1 Level of Assistance 1 -- Partial/Mod assistance Bed Mobility Comments 1 -- Pt required Juancho to assist with BLE onto bed. Bed Mobility To/From -- Sitting EOB to supine Assistive Devices And Adaptive Equipments -- Bed rail;Head of bed elevated Bed Mobility 2 Level of Assistance 2 -- Partial/Mod assistance Bed Mobility To/From -- Roll left/right Assistive Devices And Adaptive Equipments -- Bed rail;Head of bed elevated Roll Left and Right Assistance Needed -- Physical assistance Physical Assistance Level -- 26%-50% CARE Score - Roll Left and Right -- 3 Lying to Sitting on Side of Bed Assistance Needed -- Physical assistance Physical Assistance Level -- 26%-50% Comment -- not completed in today's session but completed in past. CARE Score - Lying to Sitting on Side of Bed -- 3 Sit to Lying Assistance Needed -- Physical assistance Physical Assistance Level -- 26%-50% Comment -- Pt required physical assistance to manage BLE into bed and right trunk. CARE Score - Sit to Lying -- 3 Transfers Transfer Yes Yes Transfer 1 Technique 1 Via walking Via walking Level of Assistance 1 Partial/Mod assistance Partial/Mod assistance Trials/Comments 1 Pt required physical assistance to maintain stability and verbal cues to right trunk to midline and visually scan to the L side. Pt required physical assistance to right trunk to midline and verbal cues to widen KATY to increase stability upon standing. Transfer To/From Rot-bm-Qoydr/Idfsf-[id number]-Krz Skb-yr-Adeck/Mkavw-[id number]-Yui Assistive Devices And Adaptive Equipments Cane, small base quad Cane, small base quad Transfers 2 Technique 2 Stand step Stand pivot Level of Assistance 2 Partial/Mod assistance Partial/Mod assistance Trials/Comments 2 Pt required CGA with SBQC during stand-step transfer from WC<>mat with verbal cues to sequence steps. Pt progressed to Juancho with SBQC for stability before sitting at the edge of the mat due to fwd and L lateral leaning. Pt required Juancho during stand step transfer from WC>BSC and verbal cues to sequence L/R steps for safety. Transfer To/From Mat;Wheelchair Wheelchair;Toilet Assistive Devices And Adaptive Equipments Cane, small base quad No device Transfers 3 Technique 3 -- Stand pivot Level of Assistance 3 -- Partial/Mod assistance Trials/Comments 3 -- Pt required Juancho with stand-step transfer from BSC>bed and verbal cues to sequence L/R steps. PT required physical assistance of LLE by PT gabriel Wilde to step due to decreased L knee flexion to step. Transfer To/From -- Toilet;Bed Assistive Devices And Adaptive Equipments -- No device Transfers 4 Technique 4 -- Via walking Level of Assistance 4 -- Partial/Mod assistance Trials/Comments 4 -- Pt required Juancho and SBQC during STS to right trunk to midline and verbal cues to widen KATY for stability. Transfer To/From -- Rvq-il-Lisxy/Dtavq-mi-Qpv;Wheelchair Assistive Devices And Adaptive Equipments -- Cane, small base quad Chair/Ysu-rp-Dfjlo Transfer Assistance Needed -- Physical assistance Physical Assistance Level -- 25% or less Comment -- Juancho stand pivot transfer CARE Score - Chair/Wec-qg-Euesp Transfer -- 3 Sit to Stand Assistance Needed -- Physical assistance Physical Assistance Level -- 25% or less CARE Score - Sit to Stand -- 3 Car Transfer Reason if not Attempted -- Environmental limitations CARE Score - Car Transfer -- 10 Gait Training Gait Training Time Entry -- 20 Gait Training Activity -- Yes Gait Training Activity 1 Distance (enter in feet) -- 10ft, 40ft Assistive Devices And Adaptive Equipments -- Cane, small based quad Level of Assistance 1 -- Partial/Mod assistance Gait Training Activity 1 Comment -- Pt completed 2x bouts of ambulation with Juancho and SBQC on R side and WC follow. Pt presented with L lateral leaning and fwd trunk flexion that improved with verbal cues by PT. Pt ambulated 10 ft initially with improved sequencing of stepping and SBQC but had some LOB due to narrow base of support and LLE fatigue. Pt required a seated rest break in between bouts and was able to continue ambulating 40 ft with Juancho and SBQC. Pt continued to have decreased knee flexion on the LLE and L lateral leaning with fatigue during bout 2. Surface And Method -- Indoor General Gait Deviations -- Decreased lorena;Forward trunk lean;Narrow base of support Walk 10 Feet Assistance Needed -- Physical assistance Physical Assistance Level -- 25% or less Comment -- with SBQC, pt required verbal cues to right trunk to midline due to anterior and L lateral leaning. Pt required intermittent verbal cues to sequence SBQC during stepping. CARE Score - Walk 10 Feet -- 3 Walk 50 Feet with Two Turns Assistance Needed -- Physical assistance Physical Assistance Level -- 25% or less Comment -- Not completed continuously in today's session, completed in past sessions CARE Score - Walk 50 Feet with Two Turns -- 3 Walk 150 Feet Reason if not Attempted -- Safety concerns CARE Score - Walk 150 Feet -- 88 Walking 10 Feet on Uneven Surfaces Reason if not Attempted -- Safety concerns CARE Score - Walking 10 Feet on Uneven Surfaces -- 88 1 Step (Curb) Reason if not Attempted -- Safety concerns CARE Score - 1 Step (Curb) -- 88 4 Steps Reason if not Attempted -- Safety concerns CARE Score - 4 Steps -- 88 12 Steps Reason if not Attempted -- Safety concerns CARE Score - 12 Steps -- 88 Balance/Neuromuscular Re-Education Neuromuscular Re-Education Time Entry 40 -- Activity Component(s) 1 Sitting;Standing -- Assistive Devices And Adaptive Equipments (4 inch step initially then regressed to 2 inch step) -- Balance/Neuromuscular Re-Education Activity 1 Pt completed 3x bouts of seated cone taps alternating between L and R feet to mimic gait sequence prior to standing to break up task. Pt initially required verbal cues to alternate between L/R but progressed to decreased verbal cues and was able to self correct after bout 1. -- Balance/Neuromuscular Re-Education Activity 2 Pt completed alternating foot taps in front of mirror in standing with Juancho and SBQC on R side. Pt required increased verbal cues to right trunk to midline. Pt initially attempted alternating steps on 4 inch step but was terminated due to height of step and inability to bring feet onto step. Pt was then able to complete alternating foot taps with 2 inch step with Juancho for WSing and verbal cuing for sequencing and SBQC. Pt also performed standing marches with verbal cues to weight shift to either side and hand over hand placement over SBQC to keep steady. -- Balance/Neuromuscular Re-Education Activity 3 Pt was able to complete 3x bouts of perfection game on both L and R side of table in standing with Juancho initially due to L lateral leaning and increased verbal cues to right trunk. Pt then progressed to CGA with L knee block and was able to self correct trunk to midline. Pt required verbal cues to bring L knee into extension due to increased knee flexion with WB. Pt requires verbal cues to correct anterior trunk flexion and when visually scanning to L side during standing activities. -- Picking Up Object Reason if not Attempted -- Safety concerns CARE Score - Picking Up Object -- 88 Wheelchair Activities Propulsion -- Yes Propulsion Type 1 -- Manual Level 1 -- Level Method 1 -- Manual LE propulsion;Right upper extremity Level of Assistance 1 -- Partial/Mod assistance Description/Details 1 -- Pt required verbal cues to use LLE and encouraged pt to use RUE but did not propel effictively and only used intermittently until fatigue. Pt presented with decreased speed of propulsion with BLE and required assistance to steer with encouragment to continue using BLE simultaneously. Wheel 50 Feet with Two Turns Assistance Needed -- Physical assistance Physical Assistance Level -- 26%-50% CARE Score - Wheel 50 Feet with Two Turns -- 3 Type of Wheelchair/Scooter -- Manual Wheel 150 Feet Assistance Needed -- Physical assistance Physical Assistance Level -- Total assistance CARE Score - Wheel 150 Feet -- 1 Type of Wheelchair/Scooter -- Manual Patient Education: Education Documentation No documentation found. Education Comments No comments found. Goals: Encounter Goals Encounter Goals (Active) Rolling: mod-independent (Progressing) Start: 07/23/24 Expected End: 08/13/24 Lying<>Sitting<>Lying: CGA/supervision with paris technique (Progressing) Start: 07/23/24 Expected End: 08/13/24 Pt will participate in pre-gait activities emphasizing B LE activation, proper sequencing, midline orientation, reciprocal movements, and controlled WS to facilitate safe gait training. (Progressing) Start: 07/23/24 Expected End: 08/13/24 Within 2 weeks of starting therapy, the patient and/or family/caregiver will demonstrate independence and be compliant in a written HEP in order to maximize gains made during therapy. (Progressing) Start: 07/23/24 Expected End: 08/13/24 Pt and/or caregiver(s) will have all appropriate DME, recommendations, or completed prescriptions to maximize pt's safety and independence at discharge. (Progressing) Start: 07/23/24 Expected End: 08/13/24 Transfers: Juancho stand step with LRAD (Progressing) Start: 07/23/24 Expected End: 08/13/24 Sit to Stand: CGA with LRAD (Progressing) Start: 07/23/24 Expected End: 08/13/24 Pt will be able to sit for at least 5 mins with support of no UE with midline orientation, erect posture, even KATY, appropriate WBing and ability to reach > 5" outside KATY without LOB to facilitate improved standing to return to functional tasks. (Progressing) Start: 07/23/24 Expected End: 08/13/24 Patient able to propel WC ~300ft supervision with B LE propulsion with appropriate safety awareness, midline orientation, and obstacle avoidance to facilitate safe community mobility. (Progressing) Start: 07/23/24 Expected End: 08/13/24 Ange Soler, PT CAL RECEPTIONIST * Meredith Paige, OT - 08/02/2024 6:27 PM MEDICAL RECEPTIONIST Occupational Therapy Treatment Session Note Patient Name: Toney Martel Today's Date: 08/02/2024 Preferred Language: Guamanian 08/02/24 1510 General Family/Caregiver Present No Time Calculation Start Time 1510 Stop Time 1540 Time Calculation (min) 30 min Pain Assessment Pain Assessment DVPRS Pain Score 0 Pain Rating Scale (DVPRS) 0 ADL Self Care/Home Management (ADLs) Time Entry 30 ADL Comments toilet transfer with addressing LB clothing management Grooming Grooming Comments encouraging L UE usage and bimanual tasks Activity Component(s) Washing hands Grooming Location Wheelchair Level of Assistance Partial/Mod assistance Toileting Activity Component(s) Managing clothing before;Managing clothing after;Managing incontinence hygiene/products;Perineal hygiene, front;Perineal hygiene, back Level of Assistance Substantial/Max assistance Comment initial R hand placement on pants; assist with lowering clothing and noted soiling of urine; assist to doff soiled pullup and don new pullup and pants Toileting Position/Set Up On toilet (3-1 commode positioned over toilet) Toileting Hygiene Assistance Needed Supervision;Verbal cues;Physical assistance Physical Assistance Level 76% or more CARE Score - Toileting Hygiene 2 Toilet Transfers Toilet Transfer To/From Wheelchair;Bed side commode (positioned over standard toilet) Transfer Type Stand step Level of Assistance Partial/Mod assistance (L visual scanning and attention with transfer to L) Toilet Transfers Comments addressed stand step transfers Toilet Transfer Assistance Needed Verbal cues;Physical assistance Physical Assistance Level 26%-50% CARE Score - Toilet Transfer 3 OT Assessment OT Assessment Patient receptive to toilet transfers and noted soiled of urine requiring more assist to doff soiled clothing and don new pullup and pants. Initial hand over hand and L hand placement on pants to promote usage with paris techniques; verbal/visual and tactile cues to address L side. Continue to noted R hand weakness and difficulty with problem solving simple self care tasks. Patient has demonstrated improved ability to perform stand step transfers with initial visual demonstration. OPA rep present for L LE AFO fit and consult with PT regarding recommendations for fit and AFO. 08/02/24 1630 Time Calculation Start Time 1630 Stop Time 1730 Time Calculation (min) 60 min Pain Assessment Pain Assessment DVPRS Pain Score 0 Pain Rating Scale (DVPRS) 0 Cognitive-Linguistic Functioning Overall Cognitive Status Impaired Behavior/Cognition Alert;Cooperative;Pleasant mood Arousal/Alertness Delayed responses to stimuli Orientation Level Oriented X4 ADL Self Care/Home Management (ADLs) Time Entry 20 UE Dressing Activity Component(s) Short sleeve shirt LE Dressing Activity Component(s) Pants ADL Comments doff clothing for don gown Upper Body Dressing Dressing Location/Position (seated on heavy duty commode over regular toilet) Level of Assistance Substantial/Max assistance Comment with removal of front opening jacket MAX A and with pulley mortiser operator shirt MOD A with initial start to pulley mortiser operator head Upper Body Dressing Assistance Needed Verbal cues;Physical assistance Physical Assistance Level 51%-75% Comment required more assist with removal of front opening jacket than to don gown CARE Score - Upper Body Dressing 2 Lower Body Dressing Dressing Location/Position (seated on commode) Level of Assistance Substantial/Max assistance Lower Body Dressing Assistance Needed Physical assistance Physical Assistance Level 76% or more CARE Score - Lower Body Dressing 2 Footwear Dressing Activity Component(s) Slip on shoes Dressing Location/Position Sitting edge of bed Level of Assistance Substantial/Max assistance Comment doffing shoes seated on EOB Putting On/Taking Off Footwear Assistance Needed Physical assistance Physical Assistance Level 51%-75% CARE Score - Putting On/Taking Off Footwear 2 Toileting Activity Component(s) Managing clothing before;Managing clothing after;Managing incontinence hygiene/products;Perineal hygiene, front;Perineal hygiene, back Level of Assistance Substantial/Max assistance Toileting Position/Set Up Bedside commode Toileting Hygiene Assistance Needed Verbal cues;Physical assistance Physical Assistance Level 76% or more CARE Score - Toileting Hygiene 2 Toilet Transfers Toilet Transfer To/From Wheelchair;Bed side commode Transfer Type Stand step Level of Assistance Partial/Mod assistance Toilet Transfers Comments cuing to L side Toilet Transfer Assistance Needed Verbal cues;Physical assistance Physical Assistance Level 26%-50% CARE Score - Toilet Transfer 3 Bed Mobility Bed Mobility Yes Bed Mobility 4 Level of Assistance 4 Partial/Mod assistance Bed Mobility Comments 4 addressed use of bed rail on R side Bed Mobility To/From Sitting EOB to supine Therapeutic Procedures Time Entry Neuromuscular Re-Education Time Entry 20 Therapeutic Exercise Time Entry 20 Therapeutic Exercise Therapeutic Exercise Activity 1 B UE AA/AROM for shoulder motions with theracane exercises 10 reps with input at elbow and wrist/hand Position 1 Supine Therapeutic Exercise Activity 2 sit to stand with L UE open hand weightbearing 5 reps 2 sets Balance/Neuromuscular Re-Education Balance/Neuromuscular Re-Education Activity 1 scapular WB/ push offs and lateral leans for open hand WB on L UE Position 1 Seated Balance/Neuromuscular Re-Education Activity 2 facilitated lift off and eccentric lowering with trunk/hip flexion with L UE WB Position 2 Seated OT Assessment OT Assessment Patient continues to present with L inattention with noted head tilt; with verbal cuing and additional motor processing time demonstrated ability to visually scan to L side. Patient demonstrating improved L UE muscle activation with 2+/5 shoulder and elbow with noted minimal activation of wrist and hand. Requires visual attending for L hand function and encouraging to utilize as gross assist with ongoing education to family and nursing. Present resting hand splint for night time wear only as encouraging L hand usage throughout day. Assessment: OT Assessment: Patient continues to present with L inattention with noted head tilt; with verbal cuing and additional motor processing time demonstrated ability to visually scan to L side. Patient demonstrating improved L UE muscle activation with 2+/5 shoulder and elbow with noted minimal activation of wrist and hand. Requires visual attending for L hand function and encouraging to utilize as gross assist with ongoing education to family and nursing. Present resting hand splint for night time wear only as encouraging L hand usage throughout day. Plan: Treatment Plan/Goals Established with Patient/Caregiver: Yes Treatment Interventions: ADL retraining, Cognitive reorientation, Endurance training, Neuromuscular reeducation, Orthotic/Orthotic management, Patient/family training, Scar management OT Plan: Skilled OT OT Frequency: 5-7 times per week Equipment Recommended: DME wheelchair, Wheelchair- seat cushion pressure reducing, Wheelchair- accessories, Wheelchair- back OT Planned Treatments: Activities of Daily Living, Neuromuscular reeducation, Balance training, Coordination, Equipment training, Joint protection, Home program, Orthotic, Patient education, Safety education, Seating/Positioning, Therapeutic activities, Therapeutic exercises, Splinting, Caregiver training, Work simplification, Energy conservation training OT Duration: 1-2 weeks Pain: Pain Assessment Pain Assessment: DVPRS (08/02/2024 163) Pain Score: 0 (08/02/2024 1630) Pain Rating Scale (DVPRS): No pain (08/02/2024 1630) Cognitive-Linguistic Functioning Overall Cognitive Status: Impaired Behavior/Cognition: Alert, Cooperative, Pleasant mood Arousal/Alertness: Delayed responses to stimuli Orientation Level: Oriented X4 Self Care: ADL Self Care/Home Management (ADLs) Time Entry: 20 UE Dressing Activity Component(s): Short sleeve shirt LE Dressing Activity Component(s): Pants ADL Comments: doff clothing for don gown Grooming Grooming Grooming Comments: encouraging L UE usage and bimanual tasks Activity Component(s): Washing hands Grooming Location: Wheelchair Level of Assistance: Partial/Mod assistance Upper Body Dressing Upper Body Dressing UE Dressing Activity Component(s): Short sleeve shirt Dressing Location/Position: (seated on heavy duty commode over regular toilet) Level of Assistance: Substantial/Max assistance Comment: with removal of front opening jacket MAX A and with pulley mortiser operator shirt MOD A with initial start to pulley mortiser operator head Upper Body Dressing Assistance Needed: Verbal cues, Physical assistance Physical Assistance Level: 51%-75% Comment: required more assist with removal of front opening jacket than to don gown CARE Score - Upper Body Dressin Lower Body Dressing Lower Body Dressing LE Dressing Activity Component(s): Pants Dressing Location/Position: (seated on commode) Level of Assistance: Substantial/Max assistance Lower Body Dressing Assistance Needed: Physical assistance Physical Assistance Level: 76% or more CARE Score - Lower Body Dressin Footwear Dressing Footwear Dressing Activity Component(s): Slip on shoes Dressing Location/Position: Sitting edge of bed Level of Assistance: Substantial/Max assistance Comment: doffing shoes seated on EOB Putting On/Taking Off Footwear Assistance Needed: Physical assistance Physical Assistance Level: 51%-75% CARE Score - Putting On/Taking Off Footwear: 2 Toileting Toileting Activity Component(s): Managing clothing before, Managing clothing after, Managing incontinence hygiene/products, Perineal hygiene, front, Perineal hygiene, back Level of Assistance: Substantial/Max assistance Comment: initial R hand placement on pants; assist with lowering clothing and noted soiling of urine; assist to doff soiled pullup and don new pullup and pants Toileting Position/Set Up: Bedside commode Toileting Hygiene Assistance Needed: Verbal cues, Physical assistance Physical Assistance Level: 76% or more CARE Score - Toileting Hygiene: 2 Toilet Transfers Toilet Transfers Toilet Transfer To/From: Wheelchair, Bed side commode Transfer Type: Stand step Level of Assistance: Partial/Mod assistance Toilet Transfers Comments: cuing to L side Toilet Transfer Assistance Needed: Verbal cues, Physical assistance Physical Assistance Level: 26%-50% CARE Score - Toilet Transfer: 3 Patient Education: Education Documentation No documentation found. Education Comments No comments found. Goals: Encounter Goals Encounter Goals (Active) Patient will perform upper body dressing with wheelchair level with mod assist to improve independence with dressing. (Progressing) Start: 07/24/24 Expected End: 08/20/24 Patient will perform lower body dressing with analytics manager at wheelchair level with mod assist to improve independence with dressing. (Progressing) Start: 07/24/24 Expected End: 08/20/24 Within 2 weeks of starting therapy, the patient and/or family/caregiver will demonstrate independence and be compliant in a written HEP in order to maximize gains made during therapy. (Progressing) Start: 07/24/24 Expected End: 08/20/24 Pt and/or caregiver(s) will have all appropriate DME, recommendations, or completed prescriptions to maximize pt's safety and independence at discharge. (Progressing) Start: 07/24/24 Expected End: 08/20/24 Patient and/or caregivers will verbalize understanding of home program including safety tips, equipment instructions, and home exercises. (Progressing) Start: 07/24/24 Expected End: 08/20/24 Patient will participate in forced use activities using the affected upper extremity with min assistance to inhibit abnormal movement patterns. (Progressing) Start: 07/24/24 Expected End: 08/20/24 Patient will tolerate weight bearing through their effected upper extremity for 25-30 minutes with min assist. (Progressing) Start: 07/24/24 Expected End: 08/20/24 Meredith Paige OT CAL RECEPTIONIST CAL RECEPTIONIST * Monet Blake MD - 08/02/2024 12:46 PM MEDICAL RECEPTIONIST Physical Medicine and Rehabilitation Progress Note - Daily Admission Date: 07/23/2024 SUBJECTIVE:Patient was seen and examined at bedside. No issues overnight, VSS. She endorses some LUE heaviness and pain that have been bothersome. No other questions or concerns. Last BM Date: 08/02/24Stool Appearance: Soft, Formed Stool Amount: Medium Labs BMP:Results from last 7 days Lab Units 08/02/24 0409 CREATININE mg/dL 0.56 BUN mg/dL 14 SODIUM mEq/L 143 POTASSIUM mEq/L 4.6* CHLORIDE mEq/L 108* CO2 mEq/L 22.6 CBC:Results from last 7 days Lab Units 08/02/24 0409 WBC 10*3/uL 4.61 HEMOGLOBIN g/dL 10.7* HEMATOCRIT % 35.6 MCV fL 88.6 PLATELETS 10*3/uL 385 Last BM Date: 08/02/24Stool Appearance: Soft, Formed Stool Amount: Medium PRNs in past 24 hours: VitalsVitals: 08/01/24200608/02/24 0708/02/24 0708/02/24 07 BP: (!) 134/52 Pulse: 61 55 Resp: 20 Temp: 37.1 ?C (98.7 ?F) SpO2: 97% 96% Intake & OutputI/O last 3 completed shifts: In: 550 (7.7 mL/kg) [P.O.:550] Out: 500 (7 mL/kg) [Urine:500 (0.2 mL/kg/hr)] Weight: 71.8 kg MedicationsScheduled: aspirin, 81 mg, Daily atorvastatin, 80 mg, Nightly Docusate Sodium, 100 mg, BID Enteral Free water Flush, 240 mL, q6h Fibersource HN, 375 mL, 4x daily gabapentin, 300 mg, BID heparin, 5,000 Units, q8h senna, 10 mL, Nightly PRNs:acetaminophen, 650 mg, q4h PRN bisacodyl, 10 mg, Nightly PRN dextrose, 12.5 g, Once PRN glucagon, 1 mg, Once PRN melatonin, 3 mg, Nightly PRN sodium chloride, 10 mL, PRN Physical Exam:Constitutional: No acute distress, appearing comfortable. HEENT: NCAT, no scleral icterus, MMM. Cardiovascular: No lower limb edema. Lower limbs warm. Respiratory: Breathing comfortably on room air, no tachypnea. Gastrointestinal: Soft, non-distended abdomen. Genitourinary: Deferred. No Edwards. Musculoskeletal: Full painless passive range of motion of bilateral upper and lower limbs. Skin: No rashes on limited exam of exposed areas. Psychiatric: No anxiety or agitation. Neurologic: awake, alert, left sided neglect, Dysarthria, activating left hip flexors, 4/5 strength at ankle. Keyla Martel is a 78Y F PMH of HTN and carpal tunnel syndrome who was admitted on 07/15/24 on for evaluation of wake up L sided plegia, LFD and R gaze deviation. CTP w/ established M5/M6 region stroke, but 48ml volume in posterior parietal and occipital regions. Patient taken for emergent thrombectomy. within WAKE UP protocol window IAT TICI3. MRI showing R MCA/BIOINFORMATICS TECHNICIAN/SHAWANDA strokes. Failed FEES 07/20, PEG placed 07/22/23. Patient admitted to [facility] on 07/23/24. Acute ischemic right MCA stroke (HCC) - Suspected Etiology: Large artery atherosclerosis - CT: ASPECTS 6, hyperdense MCA - CTA: acute occlusion in R ICA and distal reconstitution of flow in MCA territory but M2 and P-com occlusion. - CTP: established M5/M6 region stroke, but 48ml volume in posterior parietal and occipital regions. - MRI brain w/o contrast R MCA/BIOINFORMATICS TECHNICIAN infarct - TTE- EF: 60-65%, atrium normal - Atorvastatin 80 mg daily - ASA 81 mg daily - monitor neurological status Impaired mobility and ADLsLeft hemiparesis - PT/OT following for strengthening, increased independence with mobility and ADLs, bowel and bladder management, DME evaluation, family training, improvement in balance deficits, improvement in endurance/exercise tolerance Cognitive communication deficitsDysarthria - Continue therapies with JAVA SDET for evaluation of language impairments and cognition - Neuropsychology consultation if/when appropriate for evaluation of cognition and mood Dysphagia- NPO, continue bolus Tfs and enteral FWF - Continue therapies w/ JAVA SDET. 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 Straight cath if PVR > 200cc. Pain- Continue Tylenol as needed for nociceptive pain - 08/02 increase gabapentin to 300mg BID for ongoing neuropathic pain Skin- Recommend thorough skin evaluation as patient is at risk for pressure injuries. - If patient is unable to reliably change position independently, recommend every 4-6 hours turns to prevent skin breakdown, daily skin checks. Chronic medical co-morbidities:HTN: BP control, BP <140 HLD: statin Prophylaxis- DVT: [facility] Follow-Ups Please [place] [facility] [place] 1 [place], [place] [facility] within 3 months for PEG tube, and PCP within 1-2 weeks. Cosigned by Salomon Rubio DO at 08/02/2024 1:08 PM MEDICAL RECEPTIONIST CAL RECEPTIONIST CAL RECEPTIONIST Associated attestation - Salomon Rubio DO - 08/02/2024 1:08 PM MEDICAL RECEPTIONIST I saw and evaluated the patient with the resident, participating in the kiran portions of the service. I reviewed the resident's note and agree with the documented findings and plan of care. Physical Medicine and Rehabilitation Attending Physician Attestation: I attest that I performed or was physically present during the kiran or critical portions of the service performed by the resident and actively participated in the management of the patient. I have reviewed the resident note and agree with the documented findings and plan of care with any exceptions noted below. I spent over 35 minutes caring for this patient today, reviewing labs andrecords from another provider, obtaining the history, performing the physical exam, documenting in the records and arranging for the following: [x] counseling/education on MANNY/SCI/injury [ ] ordering medications: [ ] [ ] ordering tests: [ ] [ ] ordering procedures: [ ] [ ] Consulting the following providers: [ ] [x] Documentation of clinical information [x] Independently interpreting clinical results of [ ] and communicating results to the patient/family/caregiver [x] Care coordination with therapy/SW/consultants Deedee Santoro #[id number] * Brenda Markhamney, PT - 08/02/2024 11:00 AM MEDICAL RECEPTIONIST Treatment Session Note Patient Name: Toney Martel Today's Date: 08/02/2024 Preferred Language: Guamanian Assessment & Plan Assessment: PT Assessment: Pt has worked well with PT this week. As compared to one week ago,pt remains MOD A with bed mobiltiy, transfers and gait, but has increased her gait distance and tolerance. She has also shown improvement in WC mobility, progresing from MAX A to MOD A. She will continue to benefit from PT. Plan: Treatment Plan/Goals Established with Patient/Caregiver: Yes PT Frequency: 5-7 times per week PT Discharge Recommendations: Inpatient rehab facility placement Equipment Recommended: DME wheelchair PT Planned Treatment: Balance training, Basic activities of daily living, Bed mobility training, Body weight support treadmill training, Caregiver training, Equipment training, Gait training, Group therapy, Manual therapy, Neuromuscular reeducation, Orthotic training, Patient education, Positioning, Posture/Body mechanics training, Seating, Stair training, Therapeutic activities, Therapeutic exercises, Transfer training, Wheelchair assessment and management Duration: 3-4 weeks Subjective Pt agreeable to PT treatment. OT consulted with PT today with foil cutter present. Per primary PT's previous note, foil cutter will make pt a solid ankle AFO, likely to be delivered Wed. Pain: Pain Assessment Pain Assessment: DVPRS (08/02/2024 1100) Pain Rating Scale (DVPRS): No pain (08/02/2024 1100) Vital Signs: Patient Vitals for the past 12 hrs: BP MAP (mmHg) Pulse Resp SpO2 08/02/24 0716 -- -- 55 20 96 % 08/02/24 0716 (!) 134/52 79 -- -- -- No data found. Objective 08/02/24 1100 08/02/24 1400 General Family/Caregiver Present No No Time Calculation Start Time 1100 1400 Stop Time 1200 1430 Time Calculation (min) 60 min 30 min Activity Tolerance Endurance Tolerates 30 min exercise with multiple rests -- Sitting Balance Sits without support for more than 30 sec -- Pain Assessment Pain Assessment DVPRS -- Pain Rating Scale (DVPRS) 0 -- Health Conditions Pain Interference with Therapy Activities Rarely or not at all -- Cognitive-Linguistic Functioning Overall Cognitive Status Impaired -- Behavior/Cognition Alert;Cooperative;Distractible -- Arousal/Alertness Delayed responses to stimuli -- Following Commands Follows 1 step commands with repetition -- Safety Judgment Decreased awareness of need for assistance -- Awareness of Deficits Decreased awareness of deficits -- Attention Difficulty sustaining attention -- Memory Decreased short term memory;Decreased working memory -- Problem Solving Difficulty solving simple problems -- Therapeutic Activity Therapeutic Activity Time Entry 10 -- Therapeutic Activity 1 Donning footwear, jacket. -- Bed Mobility Bed Mobility No -- Roll Left and Right Assistance Needed Physical assistance -- Physical Assistance Level 26%-50% -- CARE Score - Roll Left and Right 3 -- Lying to Sitting on Side of Bed Assistance Needed Physical assistance -- Physical Assistance Level 26%-50% -- CARE Score - Lying to Sitting on Side of Bed 3 -- Sit to Lying Assistance Needed Physical assistance -- Physical Assistance Level 26%-50% -- CARE Score - Sit to Lying 3 -- Transfers Transfer Yes -- Transfer 1 Technique 1 Stand step -- Level of Assistance 1 Partial/Mod assistance -- Transfer To/From Wheelchair;Mat -- Transfers 2 Level of Assistance 2 Partial/Mod assistance -- Transfer To/From [id number] -- Assistive Devices And Adaptive Equipments Cane, small base quad -- Chair/Uxg-[id number]-[id number] Transfer Assistance Needed Physical assistance -- Physical Assistance Level 25% or less -- CARE Score - Chair/[id number]-Zzcbr Transfer 3 -- Sit to Stand Assistance Needed Physical assistance -- Physical Assistance Level 25% or less -- CARE Score - Sit to Stand 3 -- Car Transfer Reason if not Attempted Environmental limitations -- CARE Score - Car Transfer 10 -- Gait Training Gait Training Time Entry 30 -- Gait Training Activity Yes -- Gait Training Activity 1 Distance (enter in feet) 50 -- Assistive Devices And Adaptive Equipments Cane, small based quad -- Level of Assistance 1 Partial/Mod assistance -- Gait Training Activity 1 Comment LOB to L and FW. pt needed almost constant cueing for correct sequencing. pt uses step-through technique, but movement is not fluid due to problems seqeuencing with the cane. Pt also walks with feet pointed diagonally to R and needs cues to walk with feet pointed FW. -- Surface And Method Indoor;Even surface -- General Gait Deviations Decreased lorena;Forward trunk lean -- Gait Training Activity 2 Distance (enter in feet) 75 -- Assistive Devices And Adaptive Equipments Walker, front-wheeled -- Level of Assistance 2 Partial/Mod assistance -- Gait Training Activity 2 Comment Tried RW to see if taking sequencing out of the equation would help fluidity of gait. Pt did walk more fluidly, continuously, but still had FW lean and LOB to L. pt walked on the L side of the walker and needed cues to stay in the middle. She also needed assist to keep L UE on walker. Difficult to say if ambulation was significantly improved by use of RW vs SBQC. -- Surface And Method Indoor;Even surface -- General Gait Deviations 2 Decreased lroena;Forward trunk lean -- Walk 10 Feet Assistance Needed Physical assistance -- Physical Assistance Level 25% or less -- CARE Score - Walk 10 Feet 3 -- Walk 50 Feet with Two Turns Assistance Needed Physical assistance -- Physical Assistance Level 25% or less -- CARE Score - Walk 50 Feet with Two Turns 3 -- Walk 150 Feet Reason if not Attempted Safety concerns -- CARE Score - Walk 150 Feet 88 -- Walking 10 Feet on Uneven Surfaces Reason if not Attempted Safety concerns -- CARE Score - Walking 10 Feet on Uneven Surfaces 88 -- 1 Step (Curb) Reason if not Attempted Safety concerns -- CARE Score - 1 Step (Curb) 88 -- 4 Steps Reason if not Attempted Safety concerns -- CARE Score - 4 Steps 88 -- 12 Steps Reason if not Attempted Safety concerns -- CARE Score - 12 Steps 88 -- Balance/Neuromuscular Re-Education Neuromuscular Re-Education Time Entry 15 30 Activity Component(s) 1 Sitting Standing Balance/Neuromuscular Re-Education Activity 1 PT had pt perform Frenkels exercises on the mat to work on LLE coordination. -- Balance/Neuromuscular Re-Education Activity 2 PT had pt perform Frenkels exercises sitting on the edge of the mat to work on LLE coordination. -- Balance/Neuromuscular Re-Education Activity 3 -- PT had pt stand on foam to work on standing balance while copying pegboard pattern. pt could not stabilize herself on foam, even with cues and facilitation, so PT changed activity to standing on firm floor. Pt needed frequent cues for correct pattern completion and demonstrated impaired working memory with task. Pt needed MIN A for balance. PT assisted pt back to her room after therapy. Picking Up Object Reason if not Attempted Safety concerns -- CARE Score - Picking Up Object 88 -- Wheelchair Activities Wheelchair Management Time Entry 5 -- Wheelchair Type Manual -- Level of Assistance Partial/Mod assistance -- Propulsion Yes -- Propulsion Type 1 Manual -- Level 1 Level -- Method 1 Manual LE propulsion;Manual UE Propulsion -- Level of Assistance 1 Partial/Mod assistance -- Description/Details 1 Pt needed cues to use LLE. PT encouraged pt to use RUE as well, but she did not propel effectively with UE. Propulsion is very slow and pt needs assistance to steer. -- Wheel 50 Feet with Two Turns Assistance Needed Physical assistance -- Physical Assistance Level 26%-50% -- CARE Score - Wheel 50 Feet with Two Turns 3 -- Type of Wheelchair/Scooter Manual -- Wheel 150 Feet Assistance Needed Physical assistance -- Physical Assistance Level Total assistance -- CARE Score - Wheel 150 Feet 1 -- Type of Wheelchair/Scooter Manual -- Upper Body Dressing UE Dressing Activity Component(s) Zip-up sweatshirt/jacket -- Dressing Location/Position In wheelchair -- Level of Assistance Substantial/Max assistance -- Footwear Dressing Activity Component(s) Socks;Shoes -- Dressing Location/Position In wheelchair -- Level of Assistance Substantial/Max assistance -- PT Assessment PT Assessment Pt has worked well with PT this week. As compared to one week ago,pt remains MOD A with bed mobiltiy, transfers and gait, but has increased her gait distance and tolerance. She has also shown improvement in WC mobility, progresing from MAX A to MOD A. She will continue to benefit from PT. -- Patient Education: Education Documentation Gait, taught by Brenda Marrero PT at 08/02/2024 3:22 PM. Learner: Patient Readiness: Acceptance Method: Explanation, Demonstration Response: Needs Reinforcement Education Comments No comments found. Goals: Encounter Goals Encounter Goals (Active) Rolling: mod-independent (Progressing) Start: 07/23/24 Expected End: 08/13/24 Lying<>Sitting<>Lying: CGA/supervision with paris technique (Progressing) Start: 07/23/24 Expected End: 08/13/24 Pt will participate in pre-gait activities emphasizing B LE activation, proper sequencing, midline orientation, reciprocal movements, and controlled WS to facilitate safe gait training. (Progressing) Start: 07/23/24 Expected End: 08/13/24 Within 2 weeks of starting therapy, the patient and/or family/caregiver will demonstrate independence and be compliant in a written HEP in order to maximize gains made during therapy. (Progressing) Start: 07/23/24 Expected End: 08/13/24 Pt and/or caregiver(s) will have all appropriate DME, recommendations, or completed prescriptions to maximize pt's safety and independence at discharge. (Progressing) Start: 07/23/24 Expected End: 08/13/24 Transfers: Juancho stand step with LRAD (Progressing) Start: 07/23/24 Expected End: 08/13/24 Sit to Stand: CGA with LRAD (Progressing) Start: 07/23/24 Expected End: 08/13/24 Pt will be able to sit for at least 5 mins with support of no UE with midline orientation, erect posture, even KATY, appropriate WBing and ability to reach > 5" outside KATY without LOB to facilitate improved standing to return to functional tasks. (Progressing) Start: 07/23/24 Expected End: 08/13/24 Patient able to propel WC ~300ft supervision with B LE propulsion with appropriate safety awareness, midline orientation, and obstacle avoidance to facilitate safe community mobility. (Progressing) Start: 07/23/24 Expected End: 08/13/24 Brenda Marrero PT CAL RECEPTIONIST * Isa Howard CCC-JAVA SDET - 08/02/2024 9:00 AM MEDICAL RECEPTIONIST Speech-Language Pathology Treatment Note Patient Name: Toney Martel Today's Date: 08/02/2024 Preferred Language: Guamanian Assessment & Plan Assessment: Tolerated session well. Plan: Treatment Plan/Goals Established with Patient/Caregiver: Yes Barriers to Discharge: Insight into deficits, Complicated medical history Treatment/Interventions: Communication functioning, Swallow function, Patient/family education, Instrumental Assessments JAVA SDET Plan: Skilled JAVA SDET Frequency: 5-7 times per week Duration: 4 weeks JAVA SDET Discharge Recommendations: Home Health JAVA SDET NPO: No Swallow Precautions: Alternate liquids/solids, Clear pocketing, Feed only when alert, Oral hygiene after meals, Upright to 90 degrees, Small bites/sips Solid Consistency: Minced & Moist Liquid Viscosity: Thin Liquids Medications: Crushed in puree with MD approval Supervision Recommended: 1:1 Supervision Details: verbal and tactile cues to swallow, spoon down after each bite, alternate bites/sips, reduce distractions Compensatory Strategies for Dysphagia: Additional dry swallow(s) between bites/sips, Alternate solids and liquids, Slow rate, Small bites/sips, Oral hygiene, Position as upright as possible during oral intake, Remain upright after oral intake, Effortful swallow, Feed only when alert, Reduce environmental distractions during mealtimes Rehabilitation Exercises for Dysphagia Management: Effortful swallow, VERONICA (Effortful, intensive jaw opening exercise), Shaker and/or modified Shaker maneuver Therapeutic Recommendations: Dysphagia tx, Trials with JAVA SDET 08/02/24 0900 Time Calculation Start Time 0900 Stop Time 1000 Time Calculation (min) 60 min General Family/Caregiver Present No Pain Assessment Pain Assessment DVPRS Pain Rating Scale (DVPRS) 0 Swallow Swallow Treatment Time 30 Swallow Activities Oral care/OMEs Cognitive-Linguistic Skills Cognitive-Linguistic Skills Treatment Time 30 Cognitive-Linguistic Training Activities Orientation/Recall of swallow exercises and strategies Cognitive Skills Comments Required moderate verbal cues for recall of swallow strategies and purpose of ST services/POC. FIM Scores: Comprehension:Comprehends Complex or Abstract Information Without Prompting or Cueing: Yes Mode of Comprehension: Auditory Understands Complex or Abstract Directions and Conversations: Requires extra time Functional Cosby Measure Comprehension: Modified independence - 6 Expression:Expresses Complex or Abstract Information Without Prompting or Cueing: No Expression Mode: Vocal Expresses Basic Daily Needs and Ideas: Patient expresses basic daily needs and ideas more than 90% of the time requires prompting less than 10% of the time to be understood Functional Cosby Measure Expression: Standby prompting - 5 Social Interaction:Interacts Appropriately Without Supervision: Yes Interacts Appropriately: Requires more than reasonable time to make decisions Functional Cosby Measure Social Interaction: Modified independence - 6 Problem Solving:Solves Complex Problems: No Solves Routine Problems: Patient requires supervision to solve routine problems only under stressful or unfamiliar conditions, but no more than 10% of the time Functional Cosby Measure Problem Solving: Standby prompting - 5 Memory:Recognizes, Remembers Routines, and Executes Requests Without Prompting: No Remembers and Executes Requests With Prompting: Patient requires prompting only under stressful or unfamiliar conditions, but no more than 10% of the time Functional Cosby Measure Memory: Standby prompting - 5 Outcome Measures:FIMS, IDDSI Patient Education:Education Documentation No documentation found. Education Comments No comments found. Goals:Encounter Goals Encounter Goals (Active) STG - Patient will use speech intelligibility Intervention at conversational level (Progressing) Start: 07/24/24 Expected End: 08/04/24 LTG - Demonstrate reasoning (Progressing) Start: 07/24/24 Expected End: 08/21/24 LTG - Demonstrate visual scanning during a reading task (Progressing) Start: 07/24/24 Expected End: 08/21/24 LTG - Provides multi-step/complex solutions (Progressing) Start: 07/24/24 Expected End: 08/21/24 STG - Complete a 15-30 minute complex attention task (Progressing) Start: 07/24/24 Expected End: 08/21/24 STG - Demonstrate alternating attention by being able to shift the focus of attention between tasks/activities/ideas (Progressing) Start: 07/24/24 Expected End: 08/21/24 STG - Engage in deductive reasoning (Progressing) Start: 07/24/24 Expected End: 08/21/24 STG - Identify appropriate solutions to a problem (Progressing) Start: 07/24/24 Expected End: 08/21/24 STG - Identify cognitive/physical strengths and limitations (Progressing) Start: 07/24/24 Expected End: 08/21/24 LTG - Patient will improve on swallowing outcome measure (Progressing) Start: 07/24/24 Expected End: 08/21/24 STG - Improve airway protection (Progressing) Start: 07/24/24 Expected End: 08/21/24 STG - Improve bolus control (Progressing) Start: 07/24/24 Expected End: 08/21/24 STG - Increase the amount of food/liquid given by mouth while decreasing amount given by tube (Progressing) Start: 07/24/24 Expected End: 08/21/24 Encounter Goals (Resolved) STG - Participate in an instrumental swallow study (Completed) Start: 07/24/24 Expected End: 08/21/24 Resolved: 07/30/24 ELEUTERIO Sandoval CAL RECEPTIONIST CAL RECEPTIONIST * Meredith Bartholomew MD - 08/01/2024 11:56 AM MEDICAL RECEPTIONIST Physical Medicine & Rehabilitation Progress Note Reason for Admission: No chief complaint on file. HPI: No overnight events No nursing concerns Patient denies f/c/n/v Pain controlled. Bladder Continence Status: Non-stress incontinence, Bowel Continence Status: Incontinent movement Intake/Output Summary (Last 24 hours) at 08/01/2024 1156 Last data filed at 07/31/2024 1700 Gross per 24 hour Intake 200 ml Output -- Net 200 ml @MEDLIST@ Objective: Vitals: 08/01/24 0617 BP: Pulse: 55 Resp: Temp: SpO2: 96% General: no distress CV: no peripheral cyanosis Pulm: normal respiratory effort WBC Date/Time Value Ref Range Status 07/29/2024 05:41 AM 5.91 4.15 - 10.55 10*3/uL Final HgbDate/Time Value Ref Range Status 07/29/2024 05:41 AM 10.4 (L) 10.8 - 14.8 g/dL Final HctDate/Time Value Ref Range Status 07/29/2024 05:41 AM 34.3 33.9 - 45.4 % Final Plt CountDate/Time Value Ref Range Status 07/29/2024 05:41 AM 382 191 - 422 10*3/uL Final BUNDate/Time Value Ref Range Status 07/29/2024 05:41 AM 18 9 - 23 mg/dL Final Glucose LvlDate/Time Value Ref Range Status 07/29/2024 05:41 AM 93 70 - 99 mg/dL Final Comment: Adult reference range values reflect the clinical guidelines of the [place] [employer]. Potassium LvlDate/Time Value Ref Range Status 07/29/2024 05:41 AM 4.5 3.4 - 4.5 mEq/L Final Sodium LvlDate/Time Value Ref Range Status 07/29/2024 05:41 AM 140 136 - 145 mEq/L Final CO2 LvlDate/Time Value Ref Range Status 07/29/2024 05:41 AM 25.8 20.0 - 31.0 mEq/L Final Chloride LvlDate/Time Value Ref Range Status 07/29/2024 05:41 AM 103 98 - 107 mEq/L Final Assessment/Plan:ICD-10-CM 1. Cerebrovascular accident (CVA) due to other mechanism (HCC) (primary) I63.89 Ambulatory referral to Home Health 2. CVA (cerebrovascular accident due to intracerebral hemorrhage) (HCC) I61.9 Home DME Wheelchair 3. Primary hypertension I10 Ambulatory referral to Home Health 4. Dysarthria R47.1 Ambulatory referral to Home Health 5. Oropharyngeal dysphagia R13.12 Ambulatory referral to Home Health 6. Cognitive communication deficit R41.841 New Medications Ordered This Visit Medications sodium chloride (NS) 0.9 % flush 10 mL bisacodyl (Dulcolax) suppository 10 mg dextrose 50 % solution 12.5 g glucagon injection 1 mg atorvastatin (Lipitor) tablet 80 mg heparin injection 5,000 Units Fibersource HN liquid 375 mL aspirin chewable tablet 81 mg Docusate Sodium oral liquid 100 mg acetaminophen (Tylenol) tablet 650 mg melatonin tablet 3 mg senna (Senokot) oral solution 10 mL Enteral Free water Flush 240 mL gabapentin (Neurontin) solution 300 mg Orders Placed This EncounterProcedures Water Distilled Drinking 1Gal Standing Status: Standing Number of Occurrences: 1 Details for supply request (Specific Type, laterality, size, description of supply):: drinking water -1 litter Method of Delivery:: Send by Transport Fibersource Hn Liter Bottle Standing Status: Standing Number of Occurrences: 1 Details for supply request (Specific Type, laterality, size, description of supply):: none Method of Delivery:: Send by Transport Fibersource Hn Liter Bottle Standing Status: Standing Number of Occurrences: 1 Details for supply request (Specific Type, laterality, size, description of supply):: pls tube to 20, thanks Method of Delivery:: Send by Transport Binder 9 In Abdomin (62-74) L Standing Status: Standing Number of Occurrences: 1 Details for supply request (Specific Type, laterality, size, description of supply):: n/a Method of Delivery:: Send by Transport Tap Replacement Pad Standing Status: Standing Number of Occurrences: 1 Details for supply request (Specific Type, laterality, size, description of supply):: n/a Method of Delivery:: Send by Transport Underpads Large Standing Status: Standing Number of Occurrences: 1 Details for supply request (Specific Type, laterality, size, description of supply):: white underpads Method of Delivery:: Send by Transport Fibersource Hn Liter Bottle Standing Status: Standing Number of Occurrences: 1 Details for supply request (Specific Type, laterality, size, description of supply):: n/a Method of Delivery:: Send by Transport Pump Feeding Kangaroo Omni Standing Status: Standing Number of Occurrences: 1 Details for supply request (Specific Type, laterality, size, description of supply):: n/a Method of Delivery:: Send by Transport Fibersource Hn Liter Bottle Standing Status: Standing Number of Occurrences: 1 Details for supply request (Specific Type, laterality, size, description of supply):: fibersource HN liter bottle Method of Delivery:: Send by Transport Water Distilled Drinking 1Gal Standing Status: Standing Number of Occurrences: 1 Details for supply request (Specific Type, laterality, size, description of supply):: distilled water Method of Delivery:: Send by Transport Home DME Wheelchair Durable Medical Equipment Certification Statement I have conducted a face to face exam and as a result of functional deficits related to the patient's diagnosis durable medical equipment (DME) is required to safely discharge the patient to their home environment. This equipment is necessary for the treatment of the patient's illness orinjury and has been shown to be effective to treat the patient's condition by allowing the patient to participate in their regular related activities of daily living. Type of wheelchair: Standard Wheelchair Details: Width: 16 inch Wheelchair Details: Elevating leg rest(s) Wheelchair Details: Removable armrest The face to face evaluation was performed on: 07/28/2024 Special Instructions:: Deliver to [address] [place] [address] Justification: Standard Wheelchair (Home Health) Standard Wheelchair: Patient is unable to accomplish mobility related ADL's in the home with a cane or walker and can use a wheelchair to accomplish these activities. Standard Wheelchair: Patient has a mobility limitation that impairs his/hers ability to safely conduct ADL's in the home in a timely fashion without the use of a wheelchair. Standard Wheelchair: The patient has expressed willingness to use the wheelchair in the home. Standard Wheelchair: The use of a manual wheelchair will significantly improve patients ability to participate in MRADL's. Standard Wheelchair: The patients home environment provides adequate access for use of manual wheelchair. Standard Wheelchair: The patient has sufficient upper extremity function and mental capabilities needed to self-propel a manual wheelchair. Diapers Adult X-Large (59-64) Standing Status: Standing Number of Occurrences: 1 Details for supply request (Specific Type, laterality, size, description of supply):: xl diapers Method of Delivery:: Send by Transport Water Distilled Drinking 1Gal Standing Status: Standing Number of Occurrences: 1 Details for supply request (Specific Type, laterality, size, description of supply):: distilled water Method of Delivery:: Send by Transport FL esophagus barium swallow w video and speech Standing Status: Standing Number of Occurrences: 1 Reason for exam:: assess swallow fx Complete Blood Count w/Diff and Platelet Standing Status: Standing Number of Occurrences: 30 Release to patient: Immediate [1] Comprehensive Metabolic Panel Standing Status: Standing Number of Occurrences: 30 Release to patient: Immediate [1] Phosphorus Level Standing Status: Standing Number of Occurrences: 30 Release to patient: Immediate [1] Magnesium Level Standing Status: Standing Number of Occurrences: 30 Release to patient: Immediate [1] Complete Blood Count Standing Status: Standing Number of Occurrences: 1 Release to patient: Immediate [1] Automated Differential Standing Status: Standing Number of Occurrences: 1 Release to patient: Immediate [1] Complete Blood Count Standing Status: Standing Number of Occurrences: 1 Release to patient: Immediate [1] Automated Differential Standing Status: Standing Number of Occurrences: 1 Release to patient: Immediate [1] Ambulatory referral to Home Health Special Instructions: I attest that I or another qualified licensed provider saw Toney Martel 90 days prior to or 30 days post admission and this face to face encounter meets the necessary Home Health requirements. The face to face encounter occurred on 07/28/2024. The encounter with the patient was in whole, or in part, for the following medical necessity, which is the primary reason for home health care. Inability to safely perform ADL's, IADL, complex activities. I certify that, based on my findings, above selected services in the order are medically necessary skilled home health services. Further, I certify that my clinical findings support this patient's homebound status (i.e. absences from home require considerable and taxing effort, are for health treatment, or for attendance at gnosticism events; absences from home for nonmedical reasons are infrequent or are of relatively short duration). The clinical findings that support the need for home care and homebound status are due to Requires assistance with transfers and ambulation and the patient has a condition such that leaving his/her home is medically contraindicated. There exists a normal inability to leave home and leaving home requires a considerable and taxing effort including functional limitations. Referral Priority: Routine Referral Type: Home Health Referral Reason: Consult and Treat Requested Specialty: Home Health Services Number of Visits Requested: 999 Adult Diet Dysphagia; 0 - Thin Liquids; 5 - Minced & Moist (Dysphagia Ground); No; 1:1 Feeding Standing Status: Standing Number of Occurrences: 1 Diet type: Dysphagia Liquid Consistency or Liquid Type:: 0 - Thin Liquids Modify Texture or Food Level (Dysphagia):: 5 - Minced & Moist (Dysphagia Ground) Room Service:: No Tray Precautions:: 1:1 Feeding Activity (specify) Bedrest With Exceptions; Ambulate With Assistance Standing Status: Standing Number of Occurrences: 1 Activity Level:: Bedrest With Exceptions Other Exceptions:: Ambulate With Assistance Vital Signs Standing Status: Standing Number of Occurrences: 1 Apply BETH hose Height: Knee High Remove qHS Standing Status: Standing Number of Occurrences: 1 Height:: Knee High Intermittent Catheterization Program - Bladder Rehab Standing Status: Standing Number of Occurrences: 1 Measure post void residual Standing Status: Standing Number of Occurrences: 1 Timed Voids Rehab Timed voids Q4H from 6am to 10pm Standing Status: Standing Number of Occurrences: 1 Nursing communication PEG care: - Flush with 20 cc of water before and after use. - Clean area around PEG daily - Change gauze daily for next 2-3 days. - Keep head of bed elevated > 30 degrees while being fed. PEG care: - Flush with 20 cc of water before and after use. - Clean area around PEG daily - Change gauze daily for next 2-3 days. - Keep head of bed elevated > 30 degrees while being fed. Standing Status: Standing Number of Occurrences: 1 Full code Standing Status: Standing Number of Occurrences: 1 Inpatient consult to Nutrition Services Standing Status: Standing Number of Occurrences: 1 Reason for Consult?: Dietitian to manage nutrition care of patient OT Eval and Treat Standing Status: Standing Number of Occurrences: 1 PT Eval and Treat Standing Status: Standing Number of Occurrences: 1 JAVA SDET eval and treat Standing Status: Standing Number of Occurrences: 1 JAVA SDET speaking valve placement/removal as indicated Standing Status: Standing Number of Occurrences: [id number] JAVA SDET diet texture and/or liquid changes as indicated Standing Status: Standing Number of Occurrences: [id number] JAVA SDET instrumental swallow examination as indicated Standing Status: Standing Number of Occurrences: 90503 POC Glucose Standing Status: Standing Number of Occurrences: 1 Release to patient: Immediate [1] Admit to inpatient rehab Standing Status: Standing Number of Occurrences: 1 Aspiration precautions Standing Status: Standing Number of Occurrences: 1 Fall precautions Standing Status: Standing Number of Occurrences: 1 DVT ppx:Last Anticoag Admin heparin injection 5,000 Units Given 5,000 Units at 0530 Frequency: Every 8 hours There are additional administrations since 07/29/24 1156 that are not shown.No unadministered anticoagulant orders found. No acute issues. Resume comprehensive therapies. Resume treatment plan as specified above. ---Thank you for allowing me to participate in the care of this patient Monet Blake MD, MBAPhysical Medicine and Rehabilitation Physical Medicine and Rehabilitation Attending Physician Attestation: I performed a history and physical examination of the patient and discussed the management with the resident. I reviewed the note and agree with the documented findings and plan of care with any exceptions above. Labs, vitals were reviewed. CAL RECEPTIONIST CAL RECEPTIONIST * Wilma Guerrier CCC-JAVA SDET - 08/01/2024 11:30 AM MEDICAL RECEPTIONIST Speech-Language Pathology Treatment Note Patient Name: Toney Martel Today's Date: 08/01/2024 Preferred Language: Guamanian 08/01/24 1130 Time Calculation Start Time 1130 Stop Time 1215 Time Calculation (min) 45 min JAVA SDET Last Visit Most Recent JAVA SDET Session 07/31/24 Pain Assessment Pain Assessment 0-10 Pain Score 0 Swallow Swallow Treatment Time 45 Swallow Comments Pt seen for meal assessment. Upon JAVA SDET arrival pt reported that she was hungry, but no one was availiable for 1:1 assist. RN also in room reporting that pt was not hungry. JAVA SDET reinforced recs for 1:1 assist, especially given L-sided weakness. Pt consumed ~50% lunch tray during this session requiring increased wait time for mastication and frequent L anterior spillage given labial weakness. Pt benefitted from cues for lingual sweep. Pharyngeally, no overt s/s of airway invasion. JAVA SDET recs: continue IDDSI 5/0 with strict swallowing precautions and 1:1 assist during all PO intake. CPOC. Comprehension Score Comprehends Complex or Abstract Information Without Prompting or Cueing Yes Mode of Comprehension Auditory Understands Complex or Abstract Directions and Conversations Requires extra time Functional Cosby Measure Comprehension Standby prompting - 5 Expression Score Expresses Complex or Abstract Information Without Prompting or Cueing Yes Expression Mode Vocal Expresses Complex or Abstract Ideas Relatively clearly Expresses Basic Daily Needs and Ideas Patient expresses basic daily needs and ideas more than 90% of the time requires prompting less than 10% of the time to be understood Functional [place] Measure Expression Standby prompting - 5 Social Interaction Score Interacts Appropriately Without Supervision Yes Interacts Appropriately At all times Functional [place] Measure Social Interaction Complete independence - 7 Problem Solving Score Solves Complex Problems Yes Ability to Solve Complex Problems Requires more than reasonable time to make decisions Solves Routine Problems Patient requires supervision to solve routine problems only under stressful or unfamiliar conditions, but no more than 10% of the time Functional [place] Measure Problem Solving Standby prompting - 5 Memory Score Recognizes, Remembers Routines, and Executes Requests Without Prompting Yes Remembers and Executes Requests Consistently without need for repetition Remembers and Executes Requests With Prompting Patient requires prompting only under stressful or unfamiliar conditions, but no more than 10% of the time Functional Cos[place] Measure Memory Complete independence - 7 Assessment & Plan Assessment: Plan: Treatment Plan/Goals Established with Patient/Caregiver: Yes Barriers to Discharge: Insight into deficits, Complicated medical history Treatment/Interventions: Communication functioning, Swallow function, Patient/family education, Instrumental Assessments JAVA SDET Plan: Skilled JAVA SDET Frequency: 5-7 times per week Duration: 4 weeks JAVA SDET Discharge Recommendations: Home Health JAVA SDET NPO: No Swallow Precautions: Alternate liquids/solids, Clear pocketing, Feed only when alert, Oral hygiene after meals, Upright to 90 degrees, Small bites/sips Solid Consistency: Minced & Moist Liquid Viscosity: Thin Liquids Medications: Crushed in puree with MD approval Supervision Recommended: 1:1 Supervision Details: verbal and tactile cues to swallow, spoon down after each bite, alternate bites/sips, reduce distractions Compensatory Strategies for Dysphagia: Additional dry swallow(s) between bites/sips, Alternate solids and liquids, Slow rate, Small bites/sips, Oral hygiene, Position as upright as possible during oral intake, Remain upright after oral intake, Effortful swallow, Feed only when alert, Reduce environmental distractions during mealtimes Rehabilitation Exercises for Dysphagia Management: Effortful swallow, VERONICA (Effortful, intensive jaw opening exercise), Shaker and/or modified Shaker maneuver Therapeutic Recommendations: Dysphagia tx, Trials with JAVA SDET Subjective Current Problem:Oropharyngeal dysphagia Pain:Pain Assessment Pain Assessment: 0-10 (08/01/2024 1130) Pain Score: 0 (08/01/2024 1130) Post-Therapy Intervention Pain Assessment: Objective Vital Signs:Patient Vitals for the past 24 hrs: BP MAP (mmHg) Pulse Resp SpO2 08/01/24 0617 -- -- 55 -- 96 % 08/01/24 0617 147/64 92 -- -- -- 08/01/24 0251 (!) 127/56 80 -- -- -- 07/31/24 1940 -- -- 68 -- 97 % 07/31/24 194 (!) 171/69 (!) 103 -- -- -- 07/31/24 1543 -- -- 64 18 97 % 07/31/24 1543 142/68 93 -- -- -- Last Visit:Most Recent JAVA SDET Session: 07/31/24 General Visit Info: Treatment: Swallow: Swallow Treatment Time: 45 Swallow Comments: Pt seen for meal assessment. Upon JAVA SDET arrival pt reported that she was hungry, but no one was availiable for 1:1 assist. RN also in room reporting that pt was not hungry. JAVA SDET reinforced recs for 1:1 assist, especially given L-sided weakness. Pt consumed ~50% lunch tray during this session requiring increased wait time for mastication and frequent L anterior spillage given labial weakness. Pt benefitted from cues for lingual sweep. Pharyngeally, no overt s/s of airway invasion. JAVA SDET recs: continue IDDSI 5/0 with strict swallowing precautions and 1:1 assist during all PO intake. CPOC. Comments: FIM Scores: Comprehension:Comprehends Complex or Abstract Information Without Prompting or Cueing: Yes Mode of Comprehension: Auditory Understands Complex or Abstract Directions and Conversations: Requires extra time Functional Cos[place] Measure Comprehension: Standby prompting - 5 Expression:Expresses Complex or Abstract Information Without Prompting or Cueing: Yes Expression Mode: Vocal Expresses Complex or Abstract Ideas: Relatively clearly Expresses Basic Daily Needs and Ideas: Patient expresses basic daily needs and ideas more than 90% of the time requires prompting less than 10% of the time to be understood Functional Cos[place] Measure Expression: Standby prompting - 5 Social Interaction:Interacts Appropriately Without Supervision: Yes Interacts Appropriately: At all times Functional [place] Measure Social Interaction: Complete independence - 7 Problem Solving:Solves Complex Problems: Yes Ability to Solve Complex Problems: Requires more than reasonable time to make decisions Solves Routine Problems: Patient requires supervision to solve routine problems only under stressful or unfamiliar conditions, but no more than 10% of the time Functional [place] Measure Problem Solving: Standby prompting - 5 Memory:Recognizes, Remembers Routines, and Executes Requests Without Prompting: Yes Remembers and Executes Requests: Consistently without need for repetition Remembers and Executes Requests With Prompting: Patient requires prompting only under stressful or unfamiliar conditions, but no more than 10% of the time Functional [place] Measure Memory: Complete independence - 7 Outcome Measures:See FIMS Patient Education:Education Documentation No documentation found. Education Comments No comments found. Goals:Encounter Goals Encounter Goals (Active) STG - Patient will use speech intelligibility Intervention at conversational level (Progressing) Start: 07/24/24 Expected End: 08/21/24 LTG - Demonstrate reasoning (Progressing) Start: 07/24/24 Expected End: 08/21/24 LTG - Demonstrate visual scanning during a reading task (Progressing) Start: 07/24/24 Expected End: 08/21/24 LTG - Provides multi-step/complex solutions (Progressing) Start: 07/24/24 Expected End: 08/21/24 STG - Complete a 15-30 minute complex attention task (Progressing) Start: 07/24/24 Expected End: 08/21/24 STG - Demonstrate alternating attention by being able to shift the focus of attention between tasks/activities/ideas (Progressing) Start: 07/24/24 Expected End: 08/21/24 STG - Engage in deductive reasoning (Progressing) Start: 07/24/24 Expected End: 08/21/24 STG - Identify appropriate solutions to a problem (Progressing) Start: 07/24/24 Expected End: 08/21/24 STG - Identify cognitive/physical strengths and limitations (Progressing) Start: 07/24/24 Expected End: 08/21/24 LTG - Patient will improve on swallowing outcome measure (Progressing) Start: 07/24/24 Expected End: 08/21/24 STG - Improve airway protection (Progressing) Start: 07/24/24 Expected End: 08/21/24 STG - Improve bolus control (Progressing) Start: 07/24/24 Expected End: 08/21/24 STG - Increase the amount of food/liquid given by mouth while decreasing amount given by tube (Progressing) Start: 07/24/24 Expected End: 08/21/24 Encounter Goals (Resolved) STG - Participate in an instrumental swallow study (Completed) Start: 07/24/24 Expected End: 08/21/24 Resolved: 07/30/24 Wilma Guerrier CCC-SLP CAL RECEPTIONIST * Mallory Lyman, OT - 08/01/2024 10:00 AM MEDICAL RECEPTIONIST Treatment Session Note Patient Name: Toney Martel Today's Date: 08/01/2024 Preferred Language: Guamanian Assessment: OT Assessment Results: Impaired ADL status, Impaired cognition, Impaired safe judgment during ADL, Impaired upper extremity strength, Impaired upper extremity range of motion, Impaired endurance, Visual deficit, Impaired functional mobility, Impaired fine motor control, Impaired gross motor control, Impaired IADLs, Impaired left upper extremity (pt benefited from 1-2 cues for left side awareness.) Pain: Pain Assessment Pain Assessment: DVPRS (08/01/2024 1000) Pain Score: 0 (08/01/2024 1000) Pain Rating Scale (DVPRS): No pain (08/01/2024 1000) Self Care: ADL Self Care/Home Management (ADLs) Time Entry: 20 Toileting Toileting Activity Component(s): Managing clothing before, Managing clothing after, Perineal hygiene, front, Perineal hygiene, back Level of Assistance: Supervision/touching assistance Comment: cues for technique and safety Toileting Position/Set Up: Bedside commode (BSC over regular toilet) Toileting Hygiene Assistance Needed: Supervision, Set-up / clean-up Physical Assistance Level: 25% or less Comment: pt utilized lateral lean to the left. CARE Score - Toileting Hygiene: 3 Toilet Transfers Toilet Transfers Toilet Transfer To/From: Toilet, Wheelchair, Drop arm commode Transfer Type: Stand step, Stand pivot Level of Assistance: Partial/Mod assistance Assistive Devices And Adaptive Equipments: Cane, large base quad Toilet Transfer Assistance Needed: Physical assistance, Supervision, Verbal cues, Set-up / clean-up Physical Assistance Level: 25% or less CARE Score - Toilet Transfer: 3 Transfers 1: Technique 1: Stand pivot, Stand step, Via walking Level of Assistance 1: Partial/Mod assistance Transfer To/From: Wheelchair, Mat Assistive Devices And Adaptive Equipments: Cane, large base quad Treatment: Balance/Neuromuscular Re-Education: Neuromuscular Re-Education Time Entry: 40 Balance/Neuromuscular Re-Education Activity 1: pt seated at EOB tolerated LUE forced WB while performing functional reach exercise to RUE, pt engaged in LUE forced use using cones and rings, pt educated on SROM, needs reinforcment. Position 1: Seated Balance/Neuromuscular Re-Education Activity 2: pt completed L<>R visual scaning exercise to facilitate left side awareness. pt required 1-3 cues. Supervising Occupational Therapist: Meredith Paige OTR/L Patient progress towards current goals and plan of care was discussed in person with supervising Occupational Therapist. Mallory Lyman OT CAL RECEPTIONIST * Ange Soler, PT - 07/31/2024 1:05 PM MEDICAL RECEPTIONIST Treatment Session Note Patient Name: Toney Martel Today's Date: 07/31/2024 Preferred Language: Guamanian Assessment & Plan Assessment: PT Assessment: (P) Completed ambualtion practice in witness of family to see progress earl garnica made in [facility]. Contineud to decrease asisstance to SBQC for AD and attempted stand pivot and stand step. Patient is able to complete stand step well phsyically but requires max cuing to address sequencing and visual scanning toa void movement only towards R side of the body. Goal to continue to focus on practice of transfer and bed mobility quality and ambualtion and standing task sas toelrated for weight acceptance and L side acknowledgement. Plan: Discharge: 08/04/24 for reassessment at 08/03/24 rounds and NOT FINAL; pending SNF or extension in IPR but based on time in IPR, extension is most appropriate given patient's progress Family Training: not initiated and pending progress but faily here on 07/31/24 to witness progress but no hands on training DME Reccomendations: 16 inch WC ordered 07/28/24 and per CM note 07/31/24 is being delievered to home per son's request Mode of Transportation on Discharge: son has an SUV that will be used to transport patient at this time; no car transfer scheduled yet Treatment Plan/Goals Established with Patient/Caregiver: Yes PT Frequency: 5-7 times per week PT Discharge Recommendations: Inpatient rehab facility placement Equipment Recommended: DME wheelchair PT Planned Treatment: Balance training, Basic activities of daily living, Bed mobility training, Body weight support treadmill training, Caregiver training, Equipment training, Gait training, Group therapy, Manual therapy, Neuromuscular reeducation, Orthotic training, Patient education, Positioning, Posture/Body mechanics training, Seating, Stair training, Therapeutic activities, Therapeutic exercises, Transfer training, Wheelchair assessment and management Duration: 3-4 weeks Subjective Pain: Pain Assessment Pain Assessment: DVPRS (07/31/2024 1300) Pain Score: 0 (07/31/20241299) Pain Rating Scale (DVPRS): No pain (07/31/20241299) Vital Signs: Patient Vitals for the past 12 hrs: BP MAP (mmHg) Pulse Resp SpO2 07/31/24 1543 -- -- 64 18 97 % 07/31/24 1543 142/68 93 -- -- -- 07/31/24 0622 -- -- 61 15 98 % 07/31/24 0622 140/71 94 -- -- -- No data found. Objective 07/31/24 1300 General Amount of Missed Time (min) 35 Minutes Missed Time Reason Other (Comment) (patient's family visiting and asked to spend rest of afternoon with patient. Educated family on purpose of rehab and goal to continue to work towards [facility] but due to amount of family present allowed time to spend with loved ones) Time Calculation Start Time 1305 Stop Time 1330 Time Calculation (min) 25 min Pain Assessment Pain Assessment DVPRS Pain Score 0 Pain Rating Scale (DVPRS) 0 Therapeutic Activity Therapeutic Activity Time Entry 10 Therapeutic Activity 1 STS from and transfers to and from [place] with SBQC Roll Left and Right Assistance Needed Physical assistance Physical Assistance Level 26%-50% Comment not completed in today's session but completed in past CARE Score - Roll Left and Right 3 Lying to Sitting on Side of Bed Assistance Needed Physical assistance Physical Assistance Level 26%-50% Comment not completed in today's session but completed in past CARE Score - Lying to Sitting on Side of Bed 3 Sit to Lying Assistance Needed Physical assistance Physical Assistance Level 26%-50% Comment not completed in today's session but completed in past CARE Score - Sit to Lying 3 Transfer 1 Technique 1 Via walking Level of Assistance 1 Partial/Mod assistance Transfer To/From [id number] Assistive Devices And Adaptive Equipments Cane, small base quad Transfers 2 Technique 2 Stand step Level of Assistance 2 Partial/Mod assistance Trials/Comments 2 physical assistance for balance and sequencing of task with cuing for motroo planning and attending to L visual field to see full pictrue to complete transfer Transfer To/From Wheelchair;Mat Assistive Devices And Adaptive Equipments Cane, small base quad Transfers 3 Technique 3 Squat pivot Transfer To/From Mat;Wheelchair Chair/Oqa-[id number]-Kjjfk Transfer Assistance Needed Physical assistance Physical Assistance Level 25% or less Comment Ju[place]o stand pivot transfer CARE Score - Chair/Psl-ug-Frmze Transfer 3 Sit to Stand Assistance Needed Physical assistance Physical Assistance Level 25% or less Comment L knee block and assist to clear hips CARE Score - Sit to Stand 3 Car Transfer Reason if not Attempted Environmental limitations CARE Score - Car Transfer 10 Gait Training Activity 1 Distance (enter in feet) 50ft Assistive Devices And Adaptive Equipments Cane, small based quad Level of Assistance 1 Partial/Mod assistance Gait Training Activity 1 Comment Increased assistance to right trunk from anterior lean and verbal cuing to sequence ambualtion and widen L step length Surface And Method Indoor;Even surface General Gait Deviations Decreased lorena;Forward trunk lean Walk 10 Feet Assistance Needed Physical assistance Physical Assistance Level 25% or less Comment with SBQC; assistance to right trunk from anterior lean and verbal cuing to sequence ambualtion and widen L step length CARE Score - Walk 10 Feet 3 Walk 50 Feet with Two Turns Assistance Needed Physical assistance Physical Assistance Level 25% or less Comment with SBQC; assistance to right trunk from anterior lean and verbal cuing to sequence ambualtion and widen L step length CARE Score - Walk 50 Feet with Two Turns 3 Walk 150 Feet Reason if not Attempted Safety concerns CARE Score - Walk 150 Feet 88 Walking 10 Feet on Uneven Surfaces Reason if not Attempted Safety concerns CARE Score - Walking 10 Feet on Uneven Surfaces 88 1 Step (Curb) Reason if not Attempted Safety concerns CARE Score - 1 Step (Curb) 88 4 Steps Reason if not Attempted Safety concerns CARE Score - 4 Steps 88 12 Steps Reason if not Attempted Safety concerns CARE Score - 12 Steps 88 Picking Up Object Reason if not Attempted Safety concerns CARE Score - Picking Up Object 88 Wheel 50 Feet with Two Turns Assistance Needed Physical assistance Physical Assistance Level 51%-75% CARE Score - Wheel 50 Feet with Two Turns 2 Type of Wheelchair/Scooter Manual Wheel 150 Feet Assistance Needed Physical assistance Physical Assistance Level Total assistance CARE Score - Wheel 150 Feet 1 Type of Wheelchair/Scooter Manual Patient Education: Education Documentation No documentation found. Education Comments No comments found. Goals: Encounter Goals Encounter Goals (Active) Rolling: mod-independent Start: 07/23/24 Expected End: 08/13/24 Lying<>Sitting<>Lying: CGA/supervision with paris technique Start: 07/23/24 Expected End: 08/13/24 Pt will participate in pre-gait activities emphasizing B LE activation, proper sequencing, midline orientation, reciprocal movements, and controlled WS to facilitate safe gait training. Start: 07/23/24 Expected End: 08/13/24 Within 2 weeks of starting therapy, the patient and/or family/caregiver will demonstrate independence and be compliant in a written HEP in order to maximize gains made during therapy. Start: 07/23/24 Expected End: 08/13/24 Pt and/or caregiver(s) will have all appropriate DME, recommendations, or completed prescriptions to maximize pt's safety and independence at discharge. Start: 07/23/24 Expected End: 08/13/24 Transfers: [place] stand step with LRAD Start: 07/23/24 Expected End: 08/13/24 Sit to Stand: CGA with LRAD Start: 07/23/24 Expected End: 08/13/24 Pt will be able to sit for at least 5 mins with support of no UE with midline orientation, erect posture, even KATY, appropriate WBing and ability to reach > 5" outside KATY without LOB to facilitate improved standing to return to functional tasks. Start: 07/23/24 Expected End: 08/13/24 Patient able to propel WC ~300ft supervision with B LE propulsion with appropriate safety awareness, midline orientation, and obstacle avoidance to facilitate safe community mobility. Start: 07/23/24 Expected End: 08/13/24 Ange Soler PT CAL RECEPTIONIST * Meredith Bartholomew MD - 07/31/2024 12:14 PM MEDICAL RECEPTIONIST Physical Medicine & Rehabilitation Progress Note Reason for Admission: No chief complaint on file. HPI: No overnight events No nursing concerns Patient denies f/c/n/v Pain controlled. Bladder Continence Status: Non-stress incontinence, Bowel Continence Status: Incontinent movement Intake/Output Summary (Last 24 hours) at 07/31/2024 1214 Last data filed at 07/31/2024 0900 Gross per 24 hour Intake 400 ml Output 100 ml Net 300 ml @MEDLIST@ Objective: Vitals: 07/31/24 0622 BP: Pulse: 61 Resp: 15 Temp: SpO2: 98% General: no distress CV: no peripheral cyanosis Pulm: normal respiratory effort WBC Date/Time Value Ref Range Status 07/29/2024 05:41 AM 5.91 4.15 - 10.55 10*3/uL Final HgbDate/Time Value Ref Range Status 07/29/2024 05:41 AM 10.4 (L) 10.8 - 14.8 g/dL Final HctDate/Time Value Ref Range Status 07/29/2024 05:41 AM 34.3 33.9 - 45.4 % Final Plt CountDate/Time Value Ref Range Status 07/29/2024 05:41 AM 382 191 - 422 10*3/uL Final BUNDate/Time Value Ref Range Status 07/29/2024 05:41 AM 18 9 - 23 mg/dL Final Glucose LvlDate/Time Value Ref Range Status 07/29/2024 05:41 AM 93 70 - 99 mg/dL Final Comment: Adult reference range values reflect the clinical guidelines of the [place] [employer]. Potassium LvlDate/Time Value Ref Range Status 07/29/2024 05:41 AM 4.5 3.4 - 4.5 mEq/L Final Sodium LvlDate/Time Value Ref Range Status 07/29/2024 05:41 AM 140 136 - 145 mEq/L Final CO2 LvlDate/Time Value Ref Range Status 07/29/2024 05:41 AM 25.8 20.0 - 31.0 mEq/L Final Chloride LvlDate/Time Value Ref Range Status 07/29/2024 05:41 AM 103 98 - 107 mEq/L Final Assessment/Plan:ICD-10-CM 1. Cerebrovascular accident (CVA) due to other mechanism (HCC) (primary) I63.89 Ambulatory referral to Home Health 2. CVA (cerebrovascular accident due to intracerebral hemorrhage) ([facility]) I61.9 Home DME Wheelchair 3. Primary hypertension I10 Ambulatory referral to Home Health 4. Dysarthria R47.1 Ambulatory referral to Home Health 5. Oropharyngeal dysphagia R13.12 Ambulatory referral to Home Health 6. Cognitive communication deficit R41.841 New Medications Ordered This Visit Medications sodium chloride (NS) 0.9 % flush 10 mL bisacodyl (Dulcolax) suppository 10 mg dextrose 50 % solution 12.5 g glucagon injection 1 mg atorvastatin (Lipitor) tablet 80 mg heparin injection 5,000 Units Fibersource HN liquid 375 mL aspirin chewable tablet 81 mg Docusate Sodium oral liquid 100 mg acetaminophen (Tylenol) tablet 650 mg melatonin tablet 3 mg senna (Senokot) oral solution 10 mL Enteral Free water Flush 240 mL gabapentin (Neurontin) solution 300 mg Orders Placed This EncounterProcedures Water Distilled Drinking 1Gal Standing Status: Standing Number of Occurrences: 1 Details for supply request (Specific Type, laterality, size, description of supply):: drinking water -1 litter Method of Delivery:: Send by Transport Fibersource Hn Liter Bottle Standing Status: Standing Number of Occurrences: 1 Details for supply request (Specific Type, laterality, size, description of supply):: none Method of Delivery:: Send by Transport Fibersource Hn Liter Bottle Standing Status: Standing Number of Occurrences: 1 Details for supply request (Specific Type, laterality, size, description of supply):: pls tube to 20, thanks Method of Delivery:: Send by Transport Binder 9 In Abdomin (62-74) L Standing Status: Standing Number of Occurrences: 1 Details for supply request (Specific Type, laterality, size, description of supply):: n/a Method of Delivery:: Send by Transport Tap Replacement Pad Standing Status: Standing Number of Occurrences: 1 Details for supply request (Specific Type, laterality, size, description of supply):: n/a Method of Delivery:: Send by Transport Underpads Large Standing Status: Standing Number of Occurrences: 1 Details for supply request (Specific Type, laterality, size, description of supply):: white underpads Method of Delivery:: Send by Transport Fibersource Hn Liter Bottle Standing Status: Standing Number of Occurrences: 1 Details for supply request (Specific Type, laterality, size, description of supply):: n/a Method of Delivery:: Send by Transport Pump Feeding [employer] Standing Status: Standing Number of Occurrences: 1 Details for supply request (Specific Type, laterality, size, description of supply):: n/a Method of Delivery:: Send by Transport Fibersource Hn Liter Bottle Standing Status: Standing Number of Occurrences: 1 Details for supply request (Specific Type, laterality, size, description of supply):: fibersource HN liter bottle Method of Delivery:: Send by Transport Water Distilled Drinking 1Gal Standing Status: Standing Number of Occurrences: 1 Details for supply request (Specific Type, laterality, size, description of supply):: distilled water Method of Delivery:: Send by Transport Home DME Wheelchair Durable Medical Equipment Certification Statement I have conducted a face to face exam and as a result of functional deficits related to the patient's diagnosis durable medical equipment (DME) is required to safely discharge the patient to their home environment. This equipment is necessary for the treatment of the patient's illness orinjury and has been shown to be effective to treat the patient's condition by allowing the patient to participate in their regular related activities of daily living. Type of wheelchair: Standard Wheelchair Details: Width: 16 inch Wheelchair Details: Elevating leg rest(s) Wheelchair Details: Removable armrest The face to face evaluation was performed on: 07/28/2024 Special Instructions:: Deliver to [address] [place] [address] Justification: Standard Wheelchair (Home Health) Standard Wheelchair: Patient is unable to accomplish mobility related ADL's in the home with a cane or walker and can use a wheelchair to accomplish these activities. Standard Wheelchair: Patient has a mobility limitation that impairs his/hers ability to safely conduct ADL's in the home in a timely fashion without the use of a wheelchair. Standard Wheelchair: The patient has expressed willingness to use the wheelchair in the home. Standard Wheelchair: The use of a manual wheelchair will significantly improve patients ability to participate in MRADL's. Standard Wheelchair: The patients home environment provides adequate access for use of manual wheelchair. Standard Wheelchair: The patient has sufficient upper extremity function and mental capabilities needed to self-propel a manual wheelchair. Diapers Adult X-Large (59-64) Standing Status: Standing Number of Occurrences: 1 Details for supply request (Specific Type, laterality, size, description of supply):: xl diapers Method of Delivery:: Send by Transport [place] esophagus barium swallow w video and speech Standing Status: Standing Number of Occurrences: 1 Reason for exam:: assess swallow fx Complete Blood Count w/Diff and Platelet Standing Status: Standing Number of Occurrences: 30 Release to patient: Immediate [1] Comprehensive Metabolic Panel Standing Status: Standing Number of Occurrences: 30 Release to patient: Immediate [1] Phosphorus Level Standing Status: Standing Number of Occurrences: 30 Release to patient: Immediate [1] Magnesium Level Standing Status: Standing Number of Occurrences: 30 Release to patient: Immediate [1] Complete Blood Count Standing Status: Standing Number of Occurrences: 1 Release to patient: Immediate [1] Automated Differential Standing Status: Standing Number of Occurrences: 1 Release to patient: Immediate [1] Complete Blood Count Standing Status: Standing Number of Occurrences: 1 Release to patient: Immediate [1] Automated Differential Standing Status: Standing Number of Occurrences: 1 Release to patient: Immediate [1] Ambulatory referral to Home Health Special Instructions: I attest that I or another qualified licensed provider saw Toney Martel 90 days prior to or 30 days post admission and this face to face encounter meets the necessary Home Health requirements. The face to face encounter occurred on 07/28/2024. The encounter with the patient was in whole, or in part, for the following medical necessity, which is the primary reason for home health care. Inability to safely perform ADL's, IADL, complex activities. I certify that, based on my findings, above selected services in the order are medically necessary skilled home health services. Further, I certify that my clinical findings support this patient's homebound status (i.e. absences from home require considerable and taxing effort, are for health treatment, or for attendance at gnosticism events; absences from home for nonmedical reasons are infrequent or are of relatively short duration). The clinical findings that support the need for home care and homebound status are due to Requires assistance with transfers and ambulation and the patient has a condition such that leaving his/her home is medically contraindicated. There exists a normal inability to leave home and leaving home requires a considerable and taxing effort including functional limitations. Referral Priority: Routine Referral Type: Home Health Referral Reason: Consult and Treat Requested Specialty: Home Health Services Number of Visits Requested: 999 Adult Diet Dysphagia; 0 - Thin Liquids; 5 - Minced & Moist (Dysphagia Ground); No; 1:1 Feeding Standing Status: Standing Number of Occurrences: 1 Diet type: Dysphagia Liquid Consistency or Liquid Type:: 0 - Thin Liquids Modify Texture or Food Level (Dysphagia):: 5 - Minced & Moist (Dysphagia Ground) Room Service:: No Tray Precautions:: 1:1 Feeding Activity (specify) Bedrest With Exceptions; Ambulate With Assistance Standing Status: Standing Number of Occurrences: 1 Activity Level:: Bedrest With Exceptions Other Exceptions:: Ambulate With Assistance Vital Signs Standing Status: Standing Number of Occurrences: 1 Apply BETH hose Height: Knee High Remove qHS Standing Status: Standing Number of Occurrences: 1 Height:: Knee High Intermittent Catheterization Program - Bladder Rehab Standing Status: Standing Number of Occurrences: 1 Measure post void residual Standing Status: Standing Number of Occurrences: 1 Timed Voids Rehab Timed voids Q4H from 6am to 10pm Standing Status: Standing Number of Occurrences: 1 Nursing communication PEG care: - Flush with 20 cc of water before and after use. - Clean area around PEG daily - Change gauze daily for next 2-3 days. - Keep head of bed elevated > 30 degrees while being fed. PEG care: - Flush with 20 cc of water before and after use. - Clean area around PEG daily - Change gauze daily for next 2-3 days. - Keep head of bed elevated > 30 degrees while being fed. Standing Status: Standing Number of Occurrences: 1 Full code Standing Status: Standing Number of Occurrences: 1 Inpatient consult to Nutrition Services Standing Status: Standing Number of Occurrences: 1 Reason for Consult?: Dietitian to manage nutrition care of patient OT Eval and Treat Standing Status: Standing Number of Occurrences: 1 PT Eval and Treat Standing Status: Standing Number of Occurrences: 1 JAVA SDET eval and treat Standing Status: Standing Number of Occurrences: 1 JAVA SDET speaking valve placement/removal as indicated Standing Status: Standing Number of Occurrences: 42288 JAVA SDET diet texture and/or liquid changes as indicated Standing Status: Standing Number of Occurrences: 29502 JAVA SDET instrumental swallow examination as indicated Standing Status: Standing Number of Occurrences: 25809 POC Glucose Standing Status: Standing Number of Occurrences: 1 Release to patient: Immediate [1] Admit to inpatient rehab Standing Status: Standing Number of Occurrences: 1 Aspiration precautions Standing Status: Standing Number of Occurrences: 1 Fall precautions Standing Status: Standing Number of Occurrences: 1 DVT ppx:Last Anticoag Admin heparin injection 5,000 Units Given 5,000 Units at 0512 Frequency: Every 8 hours There are additional administrations since 07/28/24 1214 that are not shown.No unadministered anticoagulant orders found. No acute issues. Resume comprehensive therapies. Resume treatment plan as specified above. ---Thank you for allowing me to participate in the care of this patient Monet Blake MD, MBAPhysical Medicine and Rehabilitation Physical Medicine and Rehabilitation Attending Physician Attestation: I performed a history and physical examination of the patient and discussed the management with the resident. I reviewed the note and agree with the documented findings and plan of care with any exceptions above. Labs, vitals were reviewed. CAL RECEPTIONIST CAL RECEPTIONIST * Ange Roman [facility]JAVA [facility] - 07/31/2024 11:30 AM MEDICAL RECEPTIONIST Speech-Language Pathology Treatment Note Patient Name: Toney Martel Today's Date: 07/31/2024 Preferred Language: Guamanian Assessment & Plan Assessment: JAVA SDET Assessment Results: Swallowing impairment Prognosis: Good Session Tolerance: Patient tolerated session well Strengths: Support and attitude of living partners, Support of extended family/friends Plan: Treatment Plan/Goals Established with Patient/Caregiver: Yes Barriers to Discharge: Insight into deficits, Complicated medical history Treatment/Interventions: Communication functioning, Swallow function, Patient/family education, Instrumental Assessments JAVA SDET Plan: Skilled JAVA SDET Frequency: 5-7 times per week Duration: 4 weeks JAVA SDET Discharge Recommendations: Home Health JAVA SDET NPO: No Swallow Precautions: Alternate liquids/solids, Clear pocketing, Feed only when alert, Oral hygiene after meals, Upright to 90 degrees, Small bites/sips Solid Consistency: Minced & Moist Liquid Viscosity: Thin Liquids Medications: Crushed in puree with MD approval Supervision Recommended: 1:1 Supervision Details: verbal and tactile cues to swallow, spoon down after each bite, alternate bites/sips, reduce distractions Compensatory Strategies for Dysphagia: Additional dry swallow(s) between bites/sips, Alternate solids and liquids, Slow rate, Small bites/sips, Oral hygiene, Position as upright as possible during oral intake, Remain upright after oral intake, Effortful swallow, Feed only when alert, Reduce environmental distractions during mealtimes Rehabilitation Exercises for Dysphagia Management: Effortful swallow, VERONICA (Effortful, intensive jaw opening exercise), Shaker and/or modified Shaker maneuver Therapeutic Recommendations: Dysphagia tx, Trials with JAVA SDET 07/31/24 1130 Time Calculation Start Time 1130 Stop Time 1200 Time Calculation (min) 30 min General Family/Caregiver Present Yes (son and ) Pain Assessment Pain Assessment DVPRS Pain Score 0 Pain Rating Scale (DVPRS) 0 Swallow Swallow Treatment Time 30 Swallow Activities pt seen for meal tolerance follow up of MM5/thin diet during lunch. Swallow Comments pt tolerated MM5 textures with min oral residue noted, cleared with lquid wash, thin liquids via straw with no overt s/s aspiration noted. Family present and educated on MBSS results, inquiring about pizza textures. Pt given more solid texture small bite of pizza PO trial with over 2-3 min prolonged mastication noted and reduced overall mastication strength even with dentures in place. Pt and pt's family educated on safe swallowing strats including alternating liquids/bites, lingual sweep. JAVA SDET Assessment JAVA SDET Assessment Results Swallowing impairment Prognosis Good Session Tolerance Patient tolerated session well Strengths Support and attitude of living partners;Support of extended family/friends Goals: Encounter Goals Encounter Goals (Active) STG - Patient will use speech intelligibility Intervention at conversational level (Progressing) Start: 07/24/24 Expected End: 08/21/24 LTG - Demonstrate reasoning (Progressing) Start: 07/24/24 Expected End: 08/21/24 LTG - Demonstrate visual scanning during a reading task (Progressing) Start: 07/24/24 Expected End: 08/21/24 LTG - Provides multi-step/complex solutions (Progressing) Start: 07/24/24 Expected End: 08/21/24 STG - Complete a 15-30 minute complex attention task (Progressing) Start: 07/24/24 Expected End: 08/21/24 STG - Demonstrate alternating attention by being able to shift the focus of attention between tasks/activities/ideas (Progressing) Start: 07/24/24 Expected End: 08/21/24 STG - Engage in deductive reasoning (Progressing) Start: 07/24/24 Expected End: 08/21/24 STG - Identify appropriate solutions to a problem (Progressing) Start: 07/24/24 Expected End: 08/21/24 STG - Identify cognitive/physical strengths and limitations (Progressing) Start: 07/24/24 Expected End: 08/21/24 LTG - Patient will improve on swallowing outcome measure (Progressing) Start: 07/24/24 Expected End: 08/21/24 STG - Improve airway protection (Progressing) Start: 07/24/24 Expected End: 08/21/24 STG - Improve bolus control (Progressing) Start: 07/24/24 Expected End: 08/21/24 STG - Increase the amount of food/liquid given by mouth while decreasing amount given by tube (Progressing) Start: 07/24/24 Expected End: 08/21/24 Encounter Goals (Resolved) STG - Participate in an instrumental swallow study (Completed) Start: 07/24/24 Expected End: 08/21/24 Resolved: 07/30/24 XIN MantillaSLP CAL RECEPTIONIST * Jose Antonio - 07/31/2024 10:36 AM MEDICAL RECEPTIONIST 07/31/24 1000 Discharge Planning Discharge Planning Comments Home health arrangements complete. Patient was accepted by [facility] [phone]. Called and spoke with son Hardy [phone] and provided contact information for both agency. [facility] to son that [facility] [phone] will be delivering wheelchair to home as it is a local branch to patient's area. Son verbalized understanding. Discharge Planning Status Complete CAL RECEPTIONIST * Meredith Paige OT - 07/30/2024 7:58 PM MEDICAL RECEPTIONIST Occupational Therapy Treatment Session Note Patient Name: Toney Martel Today's Date: 07/30/2024 Preferred Language: Guamanian 07/30/24 1500 General Family/Caregiver Present No Others Present PT and PT student present for initial transfer mat to w/c demonstrating technique Time Calculation Start Time 1500 Stop Time 1640 Time Calculation (min) 100 min Pain Assessment Pain Assessment DVPRS Pain Score 0 Pain Rating Scale (DVPRS) 0 Cognitive-Linguistic Functioning Overall Cognitive Status Impaired Behavior/Cognition Alert;Cooperative;Pleasant mood;Distractible Arousal/Alertness Delayed responses to stimuli Following Commands Follows 1 step commands with repetition Attention Difficulty sustaining attention Problem Solving Difficulty solving simple problems ADL Self Care/Home Management (ADLs) Time Entry 80 Assistive Devices And Adaptive Equipments Grab bars;Hand-held shower (head);Tub bench UE Dressing Activity Component(s) Short sleeve shirt;Gown (doff short sleeve dress and don gown with paris tech and forced use of L UE to don R sleeve) LE Dressing Activity Component(s) Brief;Pants;Socks ADL Comments transitioned to shower room from therapy gym for seated bathing Bathing Activity Component(s) Face;Chest;Arm, left;Arm, right;Abdomen;Perineal area;Buttocks;Leg, left upper;Leg, right upper;Leg, left lower including foot;Leg, right lower including foot Bathing Location Shower;Other (specify) (seated on padded tub bench in walk in shower) Level of Assistance Substantial/Max assistance Bathing Comments facilitated L UE usage for L side of body; with modified washcloth able to wash UB and upper portion of legs and buttock Shower/Bathe Self Assistance Needed Verbal cues;Supervision;Physical assistance Physical Assistance Level 51%-75% Comment assist for initial R UE usage nad noted attempts to hold washcloth in L hand and was perineal area and upper leg CARE Score - Shower/Bathe Self 2 Tub/Shower Transfers Transfer To/From Wheelchair;Tub bench;Padded Transfer Type Stand pivot Level of Assistance Partial/Mod assistance Transfers Comments performed stand pivot and cuing for LE repositioning on bench Grooming Grooming Comments OT assisting to undo jennifer and after drying hair and brushing hair; OT assisted with hair care Activity Component(s) Combing/brushing/Styling hair;Washing face;Washing hands Grooming Location Wheelchair Level of Assistance Partial/Mod assistance Upper Body Dressing Dressing Location/Position (seated on tub bench) Level of Assistance Substantial/Max assistance Comment initial cuing and hand placement Upper Body Dressing Assistance Needed Supervision;Verbal cues;Physical assistance Physical Assistance Level 51%-75% CARE Score - Upper Body Dressing 2 Lower Body Dressing Dressing Location/Position (initial stand holding grab bar to lower pants and seated on tub bench) Level of Assistance Substantial/Max assistance Comment may trial dressing stick and positioning supported long sit for 4pt positioning Lower Body Dressing Assistance Needed Supervision;Verbal cues;Physical assistance Physical Assistance Level 51%-75% CARE Score - Lower Body Dressing 2 Footwear Dressing Activity Component(s) Socks Dressing Location/Position (seated on tub bench) Level of Assistance Dependent Comment for safe transfers and seated positioning Putting On/Taking Off Footwear Assistance Needed Supervision;Verbal cues;Physical assistance Physical Assistance Level Total assistance CARE Score - Putting On/Taking Off Footwear 1 Eating Diet patient cleared for diet and consult with ST; nursing providing 1 to 1 Level of Assistance Substantial/Max assistance Comment discussed L UE positioning to utilize as gross assist Eating Assistance Needed Supervision;Verbal cues;Physical assistance Physical Assistance Level 76% or more CARE Score - Eating 2 Bed Mobility Bed Mobility Yes Bed Mobility 3 Level of Assistance 3 Partial/Mod assistance Bed Mobility To/From Sitting EOB to supine Assistive Devices And Adaptive Equipments Bed rail;Height adjustment feature of hospital bed;Head of bed elevated (paris tech with assist for LLE and L UE positioning) Transfers Transfer Yes Transfers 4 Technique 4 Stand step Level of Assistance 4 Partial/Mod assistance Trials/Comments 4 addressing upright/midline posture and attending to L side for tactile cue to L side for posterior stepping Transfer To/From Wheelchair;Bed Assistive Devices And Adaptive Equipments No device Therapeutic Procedures Time Entry Neuromuscular Re-Education Time Entry 10 Balance/Neuromuscular Re-Education Balance/Neuromuscular Re-Education Activity 1 L UE weightbearing and forced use with self care tasks; midline positioning and postural control; visual scanning with L UE placement and positioning Position 1 Seated Balance/Neuromuscular Re-Education Activity 2 modification to resting hand splint to be worn at night and promote exercises throughout day OT Assessment OT Assessment Patient has demonstrated improved functional mobility from squat pivot transfer to stand step transfer trials with cuing for midline positioning and L to R visual scanning. Progressed from squat pivot transfer MIN A from mat to w/c with PT present to L; transitioned to stand pivot to L w/c to over edge tub bench transfers; sit to stand with grab bar usage R UE and sustained stand facilitating LB drying and clothing management. Progressed to stand step with OT facilitation of LLE advancement and observed L UE movement against gravity. Patient with improved initiation as noted L UE with simple self cares as grasping washcloth to wash martha area. Continues to present with decreased gross grasp B hands and decreased motor coordination with deficits in attention and problem solving. Plan: Treatment Plan/Goals Established with Patient/Caregiver: Yes Treatment Interventions: ADL retraining, Cognitive reorientation, Endurance training, Neuromuscular reeducation, Orthotic/Orthotic management, Patient/family training, Scar management OT Plan: Skilled OT OT Frequency: 5-7 times per week Equipment Recommended: DME wheelchair, Wheelchair- seat cushion pressure reducing, Wheelchair- accessories, Wheelchair- back OT Planned Treatments: Activities of Daily Living, Neuromuscular reeducation, Balance training, Coordination, Equipment training, Joint protection, Home program, Orthotic, Patient education, Safety education, Seating/Positioning, Therapeutic activities, Therapeutic exercises, Splinting, Caregiver training, Work simplification, Energy conservation training OT Duration: 1-2 weeks Patient Education: Education Documentation No documentation found. Education Comments No comments found. Goals: Encounter Goals Encounter Goals (Active) Patient will perform upper body dressing with wheelchair level with mod assist to improve independence with dressing. Start: 07/24/24 Expected End: 08/20/24 Patient will perform lower body dressing with analytics manager at wheelchair level with mod assist to improve independence with dressing. Start: 07/24/24 Expected End: 08/20/24 Within 2 weeks of starting therapy, the patient and/or family/caregiver will demonstrate independence and be compliant in a written HEP in order to maximize gains made during therapy. Start: 07/24/24 Expected End: 08/20/24 Pt and/or caregiver(s) will have all appropriate DME, recommendations, or completed prescriptions to maximize pt's safety and independence at discharge. Start: 07/24/24 Expected End: 08/20/24 Patient and/or caregivers will verbalize understanding of home program including safety tips, equipment instructions, and home exercises. Start: 07/24/24 Expected End: 08/20/24 Patient will participate in forced use activities using the affected upper extremity with min assistance to inhibit abnormal movement patterns. Start: 07/24/24 Expected End: 08/20/24 Patient will tolerate weight bearing through their effected upper extremity for 25-30 minutes with min assist. Start: 07/24/24 Expected End: 08/20/24 Meredith Paige OT CAL RECEPTIONIST * Ange Soler, PT - 07/30/2024 1:30 PM MEDICAL RECEPTIONIST Treatment Session Note Patient Name: Toney Martel Today's Date: 07/30/2024 Preferred Language: Guamanian Assessment & Plan Assessment: PT Assessment: Pt showed overall improvments with multiple STS's in today's session with decreased L lateral leaning and forward trunk flexion. Pt completed a total of 80 ft of ambulation with LLE knee block, verbal cues for sequencing and right trunk to midline, and progressed from hemiwalker to quad cane on R side during ambulation. Pt required Juancho during ambulation with faitgue and assistance to weight shift through BLE towards end of last bout; presented with short steppage gait due to fatigue and max cuing for appropriate WS and sequencing of LBQC and step management. Pt continues to initiate use of LUE throughout toileting and standing balance activities but still requires verbal cues to scan to L side due to L sided visual deficits. Pt would continue to benefit from further gait training. Patient will also be fit for solid ankle AFO on Friday from [facility]. Plan: Discharge: 08/04/24 for reassessment at 08/03/24 rounds; pending SNF or extension in IPR if more progress is made and hands on caregivers can be identified Family Training: not initiated and pending progress DME Reccomendations: 16 inch WC ordered 07/28/24 Mode of Transportation on Discharge: pending Treatment Plan/Goals Established with Patient/Caregiver: Yes PT Frequency: 5-7 times per week PT Discharge Recommendations: Inpatient rehab facility placement Equipment Recommended: DME wheelchair PT Planned Treatment: Balance training, Basic activities of daily living, Bed mobility training, Body weight support treadmill training, Caregiver training, Equipment training, Gait training, Group therapy, Manual therapy, Neuromuscular reeducation, Orthotic training, Patient education, Positioning, Posture/Body mechanics training, Seating, Stair training, Therapeutic activities, Therapeutic exercises, Transfer training, Wheelchair assessment and management Duration: 3-4 weeks Subjective Pain: Pain Assessment Pain Assessment: DVPRS (07/30/2024 1330) Pain Score: 0 (07/30/2024 1330) Pain Rating Scale (DVPRS): No pain (07/30/2024 1330) Vital Signs: Patient Vitals for the past 12 hrs: BP MAP (mmHg) Pulse Resp SpO2 07/30/24 1619 -- -- 56 18 97 % 07/30/24 1619 138/67 91 -- -- -- No data found. Objective 07/30/24 1330 General Others Present PT student Chani Time Calculation Start Time 1330 Stop Time 1500 Time Calculation (min) 90 min Activity Tolerance Endurance Tolerates 30 min exercise with multiple rests Sitting Balance Sits without support for more than 30 sec Early Mobility/Exercise Safety Screen Proceed with mobilization - No exclusion criteria met Pain Assessment Pain Assessment DVPRS Pain Score 0 Pain Rating Scale (DVPRS) 0 Pain Type Chronic pain Pain Location Leg Pain Orientation Left Pain Descriptors Heaviness;Sore Pain Frequency Intermittent Pain Onset Gradual Clinical Progression Not changed Response to Interventions Pt reports L hip soreness upon palpation from previous session. Health Conditions Pain Interference with Therapy Activities Rarely or not at all Therapeutic Activity Therapeutic Activity Time Entry 30 Therapeutic Activity 1 Pt performed squat pivot transfer with Juancho and L LE block from bed>BSC>WC and WC<>mat in today's session. PT student Chani assisted with don/doff pants in supine and standing during toileting with pt aiding tp pull up pants on the R side. Bed Mobility Bed Mobility Yes Bed Mobility 1 Level of Assistance 1 Partial/Mod assistance Bed Mobility To/From Roll left/right Assistive Devices And Adaptive Equipments Bed rail;Head of bed elevated Bed Mobility 2 Level of Assistance 2 Partial/Mod assistance Bed Mobility To/From Supine to sit on EOB Assistive Devices And Adaptive Equipments Bed rail;Head of bed elevated Roll Left and Right Assistance Needed Physical assistance Physical Assistance Level 26%-50% Comment Pt required physical assistance to roll full to either side and hand over hand placement to reach bedside railing. CARE Score - Roll Left and Right 3 Lying to Sitting on Side of Bed Assistance Needed Physical assistance Physical Assistance Level 26%-50% Comment Pt required assistance to push up to sitting towards R side. CARE Score - Lying to Sitting on Side of Bed 3 Sit to Lying Assistance Needed Physical assistance Physical Assistance Level 26%-50% Comment Pt did not complete today due to staying up in WC today after transfer out of bed. Pt completed in previous session. CARE Score - Sit to Lying 3 Transfers Transfer Yes Transfer 1 Technique 1 Stand pivot Level of Assistance 1 Partial/Mod assistance Trials/Comments 1 Pt required Juancho during stand pivot from bed> BSC and physical assistance to doff pants and diaper to perform toileting. Transfer To/From Bed;Other (specify) (bedside commode) Assistive Devices And Adaptive Equipments No device Transfers 2 Technique 2 Squat pivot Level of Assistance 2 Partial/Mod assistance Trials/Comments 2 Pt required Juancho squat pivot to transfer from BSC to . Transfer To/From Other (specify);Wheelchair (Bedside commode) Assistive Devices And Adaptive Equipments No device Transfers 3 Technique 3 Squat pivot Level of Assistance 3 Partial/Mod assistance Trials/Comments 3 Pt required Juancho with LLE knee block during squat pivot and verbal cues for R hand placement on mat. Transfer To/From Wheelchair;Mat Assistive Devices And Adaptive Equipments No device Chair/[id number] Transfer Assistance Needed Physical assistance Physical Assistance Level 25% or less Comment Juancho squat pivot CARE Score - Chair/[id number] Transfer 3 Sit to Stand Assistance Needed Physical assistance Physical Assistance Level 25% or less Comment Pt performed multiple bouts of STS with Juancho and LLE knee block and verbal cues to right trunk upon standing. Pt presented with improvements with L lateral lean in today's session and decreased forward trunk flexion. CARE Score - Sit to Stand 3 Car Transfer Reason if not Attempted Environmental limitations CARE Score - Car Transfer 10 Gait Training Gait Training Time Entry 30 Gait Training Activity Yes Gait Training Activity 1 Distance (enter in feet) 15ft, 30ft, 35ft Assistive Devices And Adaptive Equipments Walker, paris (quad cane) Level of Assistance 1 Partial/Mod assistance Gait Training Activity 1 Comment Pt completed 3x bouts of ambulation in today's session with L knee block, verbal cues to right trunk, and PT student Chani on pt's R side to sequence hemiwalker with stepping pattern. Pt required Juancho from PT to maintain stability and verbal cues for gait sequencing. Pt progressed to large based quad cane for ease of use for pt and terminated hemiwalker. PT placed mirror in front of pt during gait as external cue for posture. Pt became faitgue as gait continued and pt required manual weight shifts to R and R and presented with L leaning and decreased hip flexion requiring PT assistance to right and self-correct. Surface And Method Indoor;Even surface General Gait Deviations Narrow base of support (L lateral trunk lean) Walk 10 Feet Assistance Needed Physical assistance Physical Assistance Level 25% or less Comment Pt completed ambulation with Juancho and LBQC on R side and LLE block by PT. Pt required increased verbal cues to weight shift through BLE when pt became fatigue to advance contralateral limb. PT student Chani placed quad cane during sequencing and WC follow. CARE Score - Walk 10 Feet 3 Walk 50 Feet with Two Turns Assistance Needed Physical assistance Physical Assistance Level 26%-50% Comment not completed in today's session but previously completed. CARE Score - Walk 50 Feet with Two Turns 3 Walk 150 Feet Reason if not Attempted Safety concerns CARE Score - Walk 150 Feet 88 Walking 10 Feet on Uneven Surfaces Reason if not Attempted Safety concerns CARE Score - Walking 10 Feet on Uneven Surfaces 88 1 Step (Curb) Reason if not Attempted Safety concerns CARE Score - 1 Step (Curb) 88 4 Steps Reason if not Attempted Safety concerns CARE Score - 4 Steps 88 12 Steps Reason if not Attempted Safety concerns CARE Score - 12 Steps 88 Balance/Neuromuscular Re-Education Neuromuscular Re-Education Time Entry 30 Activity Component(s) 1 Standing Balance/Neuromuscular Re-Education Activity 1 Pt performed standing dowell bag balance activity with CGA for safety, LLE knee block, and verbal cues to right trunk to midline. Pt moved dowell bags from L<>R side of table in standing with RUE to focus on visual scanning to address L visual field inattention. Progressed to hitting balloon back and forth for dynamic balance with unpredictable outcomes where patient required Juancho to maintain balance, shift weight to balloon position and cues for upright posture but noted visual scanning in all planes to track balloon. Pt showed improvements with L lateral leaning and anterior trunk flexion as compared to previous session. Picking Up Object Reason if not Attempted Safety concerns CARE Score - Picking Up Object 88 Wheel 50 Feet with Two Turns Assistance Needed Physical assistance Physical Assistance Level 51%-75% Comment pt did not complete in today's session but completed 07/29 CARE Score - Wheel 50 Feet with Two Turns 2 Type of Wheelchair/Scooter Manual Wheel 150 Feet Assistance Needed Physical assistance Physical Assistance Level Total assistance CARE Score - Wheel 150 Feet 1 Type of Wheelchair/Scooter Manual PT Assessment Patient Education: Education Documentation No documentation found. Education Comments No comments found. Goals: Encounter Goals Encounter Goals (Active) Rolling: mod-independent Start: 07/23/24 Expected End: 08/13/24 Lying<>Sitting<>Lying: CGA/supervision with paris technique Start: 07/23/24 Expected End: 08/13/24 Pt will participate in pre-gait activities emphasizing B LE activation, proper sequencing, midline orientation, reciprocal movements, and controlled WS to facilitate safe gait training. Start: 07/23/24 Expected End: 08/13/24 Within 2 weeks of starting therapy, the patient and/or family/caregiver will demonstrate independence and be compliant in a written HEP in order to maximize gains made during therapy. Start: 07/23/24 Expected End: 08/13/24 Pt and/or caregiver(s) will have all appropriate DME, recommendations, or completed prescriptions to maximize pt's safety and independence at discharge. Start: 07/23/24 Expected End: 08/13/24 Transfers: Juancho stand step with LRAD Start: 07/23/24 Expected End: 08/13/24 Sit to Stand: CGA with LRAD Start: 07/23/24 Expected End: 08/13/24 Pt will be able to sit for at least 5 mins with support of no UE with midline orientation, erect posture, even KATY, appropriate WBing and ability to reach > 5" outside KATY without LOB to facilitate improved standing to return to functional tasks. Start: 07/23/24 Expected End: 08/13/24 Patient able to propel WC ~300ft supervision with B LE propulsion with appropriate safety awareness, midline orientation, and obstacle avoidance to facilitate safe community mobility. Start: 07/23/24 Expected End: 08/13/24 Ange Soler PT CAL RECEPTIONIST * Kwabena Metzger MD - 07/30/2024 12:41 PM MEDICAL RECEPTIONIST Physical Medicine and Rehabilitation Progress Note - Daily Admission Date: 07/23/2024 SUBJECTIVE:Patient was seen and examined at bedside. No issues overnight, sleeping soundly this am. No issues per RN. not at bedside this am. Patient continues to report discomfort at peg site- no signs on infection or bleeding on exam, attempted to loosen bumper. Also temporarily removed her abdominal binder which provided some relief in the area. She also notes heaviness in her left leg, pointing to left thigh. Likely neuropathic following stroke, will start gabapentin 300 mg at bedtime. Last BM Date: 07/28/24ool Appearance: Formed Stool Amount: Medium Labs BMP:Results from last 7 days Lab Units 07/29/24 0541 CREATININE mg/dL 0.56 BUN mg/dL 18 SODIUM mEq/L 140 POTASSIUM mEq/L 4.5 CHLORIDE mEq/L 103 CO2 mEq/L 25.8 CBC:Results from last 7 days Lab Units 07/29/24 0541 WBC 10*3/uL 5.91 HEMOGLOBIN g/dL 10.4* HEMATOCRIT % 34.3 MCV fL 89.3 PLATELETS 10*3/uL 382 Last BM Date: 07/28/24ool Appearance: Formed Stool Amount: Medium PRNs in past 24 hours: VitalsVitals: 07/30/24 0613 07/30/24 0614 07/30/24 0614 07/30/24 0915 BP: (!) 130/52 Pulse: 67 Resp: 18 Temp: 37.1 ?C (98.7 ?F) 37.2 ?C (99 ?F) SpO2: 97% Intake & OutputI/O last 3 completed shifts: In: - (0 mL/kg) Out: 1100 (15 mL/kg) [Urine:1100 (0.4 mL/kg/hr)] Weight: 73.4 kg MedicationsScheduled: aspirin, 81 mg, Daily atorvastatin, 80 mg, Nightly Docusate Sodium, 100 mg, BID Enteral Free water Flush, 240 mL, q6h Fibersource HN, 375 mL, 4x daily gabapentin, 300 mg, Nightly heparin, 5,000 Units, q8h senna, 10 mL, Nightly PRNs:acetaminophen, 650 mg, q4h PRN bisacodyl, 10 mg, Nightly PRN dextrose, 12.5 g, Once PRN glucagon, 1 mg, Once PRN melatonin, 3 mg, Nightly PRN sodium chloride, 10 mL, PRN Physical Exam:Constitutional: No acute distress, appearing comfortable. HEENT: NCAT, no scleral icterus, MMM. Cardiovascular: No lower limb edema. Lower limbs warm. Respiratory: Breathing comfortably on room air, no tachypnea. Gastrointestinal: Soft, non-distended abdomen. Genitourinary: Deferred. No Edwards. Musculoskeletal: Full painless passive range of motion of bilateral upper and lower limbs. Skin: No rashes on limited exam of exposed areas. Psychiatric: No anxiety or agitation. Neurologic: awake, alert, left sided neglect, Dysarthria, activating left hip flexors, 4/5 strength at ankle. Keyla Martel is a 78Y F PMH of HTN and carpal tunnel syndrome who was admitted on 07/15/24 on for evaluation of wake up L sided plegia, LFD and R gaze deviation. CTP w/ established M5/M6 region stroke, but 48ml volume in posterior parietal and occipital regions. Patient taken for emergent thrombectomy. within WAKE UP protocol window IAT TICI3. MRI showing R MCA/BIOINFORMATICS TECHNICIAN/SHAWANDA strokes. Failed FEES 07/20, PEG placed 07/22/23. Patient admitted to [facility] on 07/23/24. Acute ischemic right MCA stroke (HCC) - Suspected Etiology: Large artery atherosclerosis - CT: ASPECTS 6, hyperdense MCA - CTA: acute occlusion in R ICA and distal reconstitution of flow in MCA territory but M2 and P-com occlusion. - CTP: established M5/M6 region stroke, but 48ml volume in posterior parietal and occipital regions. - MRI brain w/o contrast R MCA/BIOINFORMATICS TECHNICIAN infarct - TTE- EF: 60-65%, atrium normal - Atorvastatin 80 mg daily - ASA 81 mg daily - monitor neurological status Impaired mobility and ADLsLeft hemiparesis - PT/OT following for strengthening, increased independence with mobility and ADLs, bowel and bladder management, DME evaluation, family training, improvement in balance deficits, improvement in endurance/exercise tolerance Cognitive communication deficitsDysarthria - Continue therapies with JAVA SDET for evaluation of language impairments and cognition - Neuropsychology consultation if/when appropriate for evaluation of cognition and mood Dysphagia- NPO, continue bolus Tfs and enteral FWF - Continue therapies w/ JAVA SDET. 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 Straight cath if PVR > 200cc. Pain- Continue Tylenol as needed for nociceptive pain - 07/30 gabapentin 300 mg at bedtime for neuropathic pain in left leg Skin- Recommend thorough skin evaluation as patient is at risk for pressure injuries. - If patient is unable to reliably change position independently, recommend every 4-6 hours turns to prevent skin breakdown, daily skin checks. Chronic medical co-morbidities:HTN: BP control, BP <140 HLD: statin Prophylaxis- DVT: H Follow-Ups Please [place] up [place] [facility] within 1 [place], [place] [facility] within 3 months for PEG tube, and PCP within 1-2 weeks. Cosigned by Salomon Rubio DO at 07/30/2024 1:06 PM MEDICAL RECEPTIONIST CAL RECEPTIONIST CAL RECEPTIONIST Associated attestation - Salomon Rubio DO - 07/30/2024 1:06 PM MEDICAL RECEPTIONIST I saw and evaluated the patient with the resident, participating in the kiran portions of the service. I reviewed the resident's note and agree with the documented findings and plan of care. Physical Medicine and Rehabilitation Attending Physician Attestation: I attest that I performed or was physically present during the kiran or critical portions of the service performed by the resident and actively participated in the management of the patient. I have reviewed the resident note and agree with the documented findings and plan of care with any exceptions noted below. I spent over 35 minutes caring for this patient today, reviewing labs andrecords from another provider, obtaining the history, performing the physical exam, documenting in the records and arranging for the following: [x] counseling/education on MANNY/SCI/injury [ ] ordering medications: [ ] [ ] ordering tests: [ ] [ ] ordering procedures: [ ] [ ] Consulting the following providers: [ ] [x] Documentation of clinical information [x] Independently interpreting clinical results of [ ] and communicating results to the patient/family/caregiver [x] Care coordination with therapy/SW/consultants Deedee Santoro #[id number] * Isa Howard CCC-JAVA SDET - 07/30/2024 10:00 AM MEDICAL RECEPTIONIST Speech-Language Pathology Modified Barium Swallow (MBS) Patient Name: Toney Martel Today's Date: 07/30/2024 Preferred Language: Guamanian Impressions: Clinician provided trials of thin liquid via spoon, cup, and straw, nectar thick liquid via cup and straw, puree solid, and regular solid via cracker. Oral phase deficits c/b poor lip seal resulting in anterior spillage, reduced orolingual control resulting in posterior loss of liquids to vallecula, and reduced mastication. Pharyngeal phase c/b impaired laryngeal closure resulting in an isolated occurrence of aspiration visualized with trial of thin liquid via spoon. There was sensory response, and a productive cued cough did clear the upper airway. Shallow laryngeal penetration consistent throughout thin and mildly thick trials. Mild scattered pharyngeal residue with regular solid was cleared with liquid wash. Overall impressions: Per PORTIA, Moderate oropharyngeal dysphagia. JAVA SDET recommends minced and moist solids with thin liquids, 1:1 supervision, and seated upright with all meals. Meds crushed in puree. Plan: Treatment Plan/Goals Established with Patient/Caregiver: Yes Barriers to Discharge: Insight into deficits, Complicated medical history Treatment/Interventions: Communication functioning, Swallow function, Patient/family education, Instrumental Assessments JAVA SDET Plan: Skilled JAVA SDET Frequency: 5-7 times per week Duration: 4 weeks JAVA SDET Discharge Recommendations: Home Health JAVA SDET NPO: No Swallow Precautions: Alternate liquids/solids, Clear pocketing, Feed only when alert, Oral hygiene after meals, Upright to 90 degrees, Small bites/sips Solid Consistency: Minced & Moist Liquid Viscosity: Thin Liquids Medications: Crushed in puree with MD approval Supervision Recommended: 1:1 Supervision Details: verbal and tactile cues to swallow, spoon down after each bite, alternate bites/sips, reduce distractions Compensatory Strategies for Dysphagia: Additional dry swallow(s) between bites/sips, Alternate solids and liquids, Slow rate, Small bites/sips, Oral hygiene, Position as upright as possible during oral intake, Remain upright after oral intake, Effortful swallow, Feed only when alert, Reduce environmental distractions during mealtimes Rehabilitation Exercises for Dysphagia Management: Effortful swallow, VERONICA (Effortful, intensive jaw opening exercise), Shaker and/or modified Shaker maneuver Therapeutic Recommendations: Dysphagia tx, Trials with JAVA SDET Subjective Current Problem: Severe oropharyngeal dysphagia s/p ICH CVA Pain: Pain Assessment Pain Assessment: DVPRS (07/30/2024999) Pain Score: 0 (07/30/2024999) Pain Rating Scale (DVPRS): No pain (07/30/2024 1000) Objective Vital Signs: Patient Vitals for the past 24 hrs: BP MAP (mmHg) Pulse Resp SpO2 07/30/2414 -- -- 67 18 97 % 07/30/24613 (!) 130/52 78 -- -- -- 07/29/241927 -- -- 69 18 95 % 07/29/241927 (!) 132/57 82 -- -- -- 07/29/24 1539 -- -- 71 18 96 % 07/29/24 1539 133/69 90 -- -- -- Pre-Assessment: Current Method of Nutrition: PEG tube Oral-Sensory Motor Exam: Wired/Banded: No Oral/Motor: Wired/Banded: No Dentition: Some missing teeth (Partials not donned prior to study) Face: Impaired Face Symmetry: Impaired Face Sensation: Impaired Facial ROM: Reduced left Lips ROM: Impaired Lips Coordination: Impaired Lips Strength: Impaired Tongue Coordination: Impaired Tongue Strength: Impaired Cranial Nerves: Facial (VII) - Sensory: Impaired (Left) Facial (VII) - Motor: Impaired (Left) Video Fluoroscopic Exam: Patient Position: Upright, In a chair Viewing Plane: Lateral Feeding Assistance: Clinician provided bolus trials Follow Directions/Commands Given: Yes Respiratory Status: Room air Impairment Profile: Lip Closure: Impaired Tongue Control During Bolus Hold: Impaired Bolus Preparation for Mastication: Impaired Bolus Transport and Lingual Motion: Impaired Soft Palate Elevation: Within Functional Limits Tongue Base Retraction: Impaired Laryngeal Elevation: Impaired Anterior Hyoid Excursion: Impaired Epiglottic Movement: Within Functional Limits Laryngeal Vestibular Closure: Impaired Pharyngeal Stripping Wave: Within Functional Limits Pharyngoesophageal Segment Opening: Within Functional Limits Pharyngeal Contraction: Unable to Determine/Assess Esophageal Clearance: Unable to Determine/Assess Impairment Profile - Bottle Feeding: Clinical Measures: Clinical Measure 1: IDDSI Texture: 0- Thin Bolus Characteristics: spoon Bolus Hold: Anterior loss Bolus Transport: Delay initiation Initiation of Pharyngeal Swallow: Valleculae Penetration-Aspiration Scale: 7: Material enters the airway, passes below the vocal folds, and is not ejected from the trachea despite effort. Timing of Aspiration: During the swallow, After the swallow Comments: All other trials PAS 2 Clinical Measure 2:IDDSI Texture: 0- Thin Bolus Characteristics: cup Bolus Hold: Anterior loss, <50 Post loss Bolus Transport: Delay initiation, Slowed Initiation of Pharyngeal Swallow: Valleculae Penetration-Aspiration Scale: 2: Material enters the airway, remains above the vocal folds, and is ejected from the airway. Clinical Measure 3:IDDSI Texture: 0- Thin Bolus Characteristics: straw Bolus Hold: <50 Post loss Bolus Transport: Slowed Initiation of Pharyngeal Swallow: Valleculae Penetration-Aspiration Scale: 2: Material enters the airway, remains above the vocal folds, and is ejected from the airway. Clinical Measure 4:IDDSI Texture: 2- Mildly thick Bolus Characteristics: cup Bolus Hold: <50 Post loss Bolus Transport: Slowed Initiation of Pharyngeal Swallow: Valleculae Penetration-Aspiration Scale: 2: Material enters the airway, remains above the vocal folds, and is ejected from the airway. Clinical Measure 5:IDDSI Texture: 2- Mildly thick Bolus Characteristics: straw Bolus Hold: <50 Post loss Bolus Transport: Slowed Initiation of Pharyngeal Swallow: Valleculae Penetration-Aspiration Scale: 2: Material enters the airway, remains above the vocal folds, and is ejected from the airway. Clinical Measure 6:IDDSI Texture: 4- Pureed Bolus Characteristics: pudding Bolus Hold: No loss Bolus Transport: Slowed Initiation of Pharyngeal Swallow: Base of tongue Penetration-Aspiration Scale: 1: Material does not enter airway Clinical Measure 7:IDDSI Texture: 7- Regular Bolus Characteristics: nichole cracker Bolus Transport: Slowed Initiation of Pharyngeal Swallow: Base of tongue Penetration-Aspiration Scale: 1: Material does not enter airway Amount of Residue and Location (on the worst texture):Floor of Mouth Clearance: Trace Residue Anterior Sulci Clearance: Trace Residue Palate Clearance: Trace Residue Tongue Clearance: Trace Residue Tongue Base Clearance: Trace Residue Valleculae Clearance: Trace Residue Pharyngeal Wall Clearance: Cleared Aryepiglottic Folds Clearance: Cleared Pyriform Sinuses Clearance: Cleared Strategies Trialed:Cued Cough: Improved safety of the swallow Suspected Etiology of Dysphagia Deficts:Dysphagia: Dysphagia identified Pain:Pain Assessment Pain Assessment: DVPRS (07/30/2024999) Pain Score: 0 (07/30/2024999) Pain Rating Scale (DVPRS): No pain (07/30/2024999) Post-Therapy Intervention Pain Assessment: FIM Scores: Comprehension:Comprehends Complex or Abstract Information Without Prompting or Cueing: Yes Mode of Comprehension: Auditory Understands Complex or Abstract Directions and Conversations: Requires extra time Functional Cosby Measure Comprehension: Modified independence - 6 Expression:Expresses Complex or Abstract Information Without Prompting or Cueing: No Expression Mode: Vocal Expresses Basic Daily Needs and Ideas: Patient expresses basic daily needs and ideas more than 90% of the time requires prompting less than 10% of the time to be understood Functional Cosby Measure Expression: Standby prompting - 5 Social Interaction:Interacts Appropriately Without Supervision: Yes Interacts Appropriately: Requires more than reasonable time to make decisions Functional Cosby Measure Social Interaction: Modified independence - 6 Problem Solving:Solves Complex Problems: No Solves Routine Problems: Patient requires supervision to solve routine problems only under stressful or unfamiliar conditions, but no more than 10% of the time Functional Cosby Measure Problem Solving: Standby prompting - 5 Memory:Recognizes, Remembers Routines, and Executes Requests Without Prompting: No Remembers and Executes Requests With Prompting: Patient requires prompting only under stressful or unfamiliar conditions, but no more than 10% of the time Functional Cosby Measure Memory: Standby prompting - 5 Outcome Measures:DYSPHAGIA OUTCOME AND SEVERITY SCALE (PORTIA), O'LEAH ET AL., 1999: 3-Moderate dysphagia Patient Education:Education Documentation Speech-Language/Pathology Treatment Plan, taught by Isa Howard CCC-JAVA SDET at 07/30/2024 3:24 PM. Learner: Family, Patient Readiness: Eager Method: Explanation Response: Verbalizes Understanding, Needs Reinforcement Results of Exam, taught by Isa Howard CCC-JAVA SDET at 07/30/2024 3:24 PM.Learner: Family, Patient Readiness: Eager Method: Explanation Response: Verbalizes Understanding, Needs Reinforcement Education CommentsNo comments found. Goals:Encounter Goals Encounter Goals (Active) STG - Patient will use speech intelligibility Intervention at conversational level (Progressing) Start: 07/24/24 Expected End: 08/21/24 LTG - Demonstrate reasoning (Progressing) Start: 07/24/24 Expected End: 08/21/24 LTG - Demonstrate visual scanning during a reading task (Progressing) Start: 07/24/24 Expected End: 08/21/24 LTG - Provides multi-step/complex solutions (Progressing) Start: 07/24/24 Expected End: 08/21/24 STG - Complete a 15-30 minute complex attention task (Progressing) Start: 07/24/24 Expected End: 08/21/24 STG - Demonstrate alternating attention by being able to shift the focus of attention between tasks/activities/ideas (Progressing) Start: 07/24/24 Expected End: 08/21/24 STG - Engage in deductive reasoning (Progressing) Start: 07/24/24 Expected End: 08/21/24 STG - Identify appropriate solutions to a problem (Progressing) Start: 07/24/24 Expected End: 08/21/24 STG - Identify cognitive/physical strengths and limitations (Progressing) Start: 07/24/24 Expected End: 08/21/24 LTG - Patient will improve on swallowing outcome measure (Progressing) Start: 07/24/24 Expected End: 08/21/24 STG - Improve airway protection (Progressing) Start: 07/24/24 Expected End: 08/21/24 STG - Improve bolus control (Progressing) Start: 07/24/24 Expected End: 08/21/24 STG - Increase the amount of food/liquid given by mouth while decreasing amount given by tube (Progressing) Start: 07/24/24 Expected End: 08/21/24 Encounter Goals (Resolved) STG - Participate in an instrumental swallow study (Completed) Start: 07/24/24 Expected End: 08/21/24 Resolved: 07/30/24 XIN SandovalSLP CAL RECEPTIONIST * ELEUTERIO Sandoval - 07/30/2024 9:30 AM MEDICAL RECEPTIONIST Speech-Language Pathology Treatment Note Patient Name: Toney Martel Today's Date: 07/30/2024 Preferred Language: Guamanian Assessment & Plan Assessment: Tolerated session well Plan: Treatment Plan/Goals Established with Patient/Caregiver: Yes Barriers to Discharge: Insight into deficits, Complicated medical history Treatment/Interventions: Communication functioning, Swallow function, Patient/family education, Instrumental Assessments JAVA SDET Plan: Skilled JAVA SDET Frequency: 5-7 times per week Duration: 4 weeks JAVA SDET Discharge Recommendations: Home Health JAVA SDET NPO: No Swallow Precautions: Alternate liquids/solids, Clear pocketing, Feed only when alert, Oral hygiene after meals, Upright to 90 degrees, Small bites/sips Solid Consistency: Minced & Moist Liquid Viscosity: Thin Liquids Medications: Crushed in puree with MD approval Supervision Recommended: 1:1 Supervision Details: verbal and tactile cues to swallow, spoon down after each bite, alternate bites/sips, reduce distractions Compensatory Strategies for Dysphagia: Additional dry swallow(s) between bites/sips, Alternate solids and liquids, Slow rate, Small bites/sips, Oral hygiene, Position as upright as possible during oral intake, Remain upright after oral intake, Effortful swallow, Feed only when alert, Reduce environmental distractions during mealtimes Rehabilitation Exercises for Dysphagia Management: Effortful swallow, VERONICA (Effortful, intensive jaw opening exercise), Shaker and/or modified Shaker maneuver Therapeutic Recommendations: Dysphagia tx, Trials with JAVA SDET Subjective Current Problem: ICH CVA Pain: Pain Assessment Pain Assessment: DVPRS (07/30/2024999) Pain Score: 0 (07/30/2024999) Pain Rating Scale (DVPRS): No pain (07/30/2024999) Post-Therapy Intervention Pain Assessment: Objective Vital Signs: Patient Vitals for the past 24 hrs: BP MAP (mmHg) Pulse Resp SpO2 07/30/24 0614 -- -- 67 18 97 % 07/30/24 0614 (!) 130/52 78 -- -- -- 07/29/24 1928 -- -- 69 18 95 % 07/29/24 1928 (!) 132/57 82 -- -- -- 07/29/24 1539 -- -- 71 18 96 % 07/29/24 1539 133/69 90 -- -- -- Last Visit: Most Recent JAVA SDET Session: 07/29/24 General Visit Info: Treatment: Speech/Voice: Speech Treatment Time: 30 Speech Activities: Labial and lingual exercises to increase speech production Speech Comments: Dysarthria and its characteristics discussed. Patient with limited ROM impacting speech production and swallowing. Comments: FIM Scores: Comprehension:Comprehends Complex or Abstract Information Without Prompting or Cueing: Yes Mode of Comprehension: Auditory Understands Complex or Abstract Directions and Conversations: Requires extra time Functional Cosby Measure Comprehension: Modified independence - 6 Expression:Expresses Complex or Abstract Information Without Prompting or Cueing: No Expression Mode: Vocal Expresses Basic Daily Needs and Ideas: Patient expresses basic daily needs and ideas more than 90% of the time requires prompting less than 10% of the time to be understood Functional Cosby Measure Expression: Standby prompting - 5 Social Interaction:Interacts Appropriately Without Supervision: Yes Interacts Appropriately: Requires more than reasonable time to make decisions Functional Cosby Measure Social Interaction: Modified independence - 6 Problem Solving:Solves Complex Problems: No Solves Routine Problems: Patient requires supervision to solve routine problems only under stressful or unfamiliar conditions, but no more than 10% of the time Functional Cosby Measure Problem Solving: Standby prompting - 5 Memory:Recognizes, Remembers Routines, and Executes Requests Without Prompting: No Remembers and Executes Requests With Prompting: Patient requires prompting only under stressful or unfamiliar conditions, but no more than 10% of the time Functional Cosby Measure Memory: Standby prompting - 5 Outcome Measures:The Functional Cosby Measure (FIM) is a tool used to assess a patient's functional status and level of independence in performing daily tasks. Patient Education:Education Documentation Speech-Language/Pathology Treatment Plan, taught by Isa Howard CCC-JAVA SDET at 07/30/2024 3:24 PM. Learner: Family, Patient Readiness: Eager Method: Explanation Response: Verbalizes Understanding, Needs Reinforcement Results of Exam, taught by ELEUTERIO Sandoval at 07/30/2024 3:24 PM.Learner: Family, Patient Readiness: Eager Method: Explanation Response: Verbalizes Understanding, Needs Reinforcement Education CommentsNo comments found. Goals:Encounter Goals Encounter Goals (Active) STG - Patient will use speech intelligibility Intervention at conversational level (Progressing) Start: 07/24/24 Expected End: 08/21/24 LTG - Demonstrate reasoning (Progressing) Start: 07/24/24 Expected End: 08/21/24 LTG - Demonstrate visual scanning during a reading task (Progressing) Start: 07/24/24 Expected End: 08/21/24 LTG - Provides multi-step/complex solutions (Progressing) Start: 07/24/24 Expected End: 08/21/24 STG - Complete a 15-30 minute complex attention task (Progressing) Start: 07/24/24 Expected End: 08/21/24 STG - Demonstrate alternating attention by being able to shift the focus of attention between tasks/activities/ideas (Progressing) Start: 07/24/24 Expected End: 08/21/24 STG - Engage in deductive reasoning (Progressing) Start: 07/24/24 Expected End: 08/21/24 STG - Identify appropriate solutions to a problem (Progressing) Start: 07/24/24 Expected End: 08/21/24 STG - Identify cognitive/physical strengths and limitations (Progressing) Start: 07/24/24 Expected End: 08/21/24 LTG - Patient will improve on swallowing outcome measure (Progressing) Start: 07/24/24 Expected End: 08/21/24 STG - Improve airway protection (Progressing) Start: 07/24/24 Expected End: 08/21/24 STG - Improve bolus control (Progressing) Start: 07/24/24 Expected End: 08/21/24 STG - Increase the amount of food/liquid given by mouth while decreasing amount given by tube (Progressing) Start: 07/24/24 Expected End: 08/21/24 Encounter Goals (Resolved) STG - Participate in an instrumental swallow study (Completed) Start: 07/24/24 Expected End: 08/21/24 Resolved: 07/30/24 XIN SandovalSLP CAL RECEPTIONIST * Michael Lopez PTA - 07/29/2024 2:00 PM MEDICAL RECEPTIONIST Physical Therapy Treatment Session Note Patient Name: Toney Martel Today's Date: 07/29/2024 Preferred Language: Guamanian Assessment & Plan Assessment: PT Assessment: Pt was able to tolerate therapy session well with some fatigue noted, but pt able to push through. Pt was able to work on ambualtion using pairs-walker with therapist noting pt able to advance limb with no assistance and also able to clear foot with use of DF derek wrap, pt may benefit from and AFO on L foot. Pt was able to work on balance with emphasis on tracking objects on L side. Pt is receptive to education and will benedit from continued intense physical therapy. Prognosis: Good Barriers to Discharge: Decreased communication, Insight into deficits, Safety awareness Evaluation/Treatment Tolerance: Patient tolerated treatment well Medical Staff Made Aware: Yes Strengths: Support and attitude of living partners, Support of extended family/friends Plan: Treatment Plan/Goals Established with Patient/Caregiver: Yes PT Frequency: 5-7 times per week PT Discharge Recommendations: Inpatient rehab facility placement Equipment Recommended: DME wheelchair PT Planned Treatment: Balance training, Basic activities of daily living, Bed mobility training, Body weight support treadmill training, Caregiver training, Equipment training, Gait training, Group therapy, Manual therapy, Neuromuscular reeducation, Orthotic training, Patient education, Positioning, Posture/Body mechanics training, Seating, Stair training, Therapeutic activities, Therapeutic exercises, Transfer training, Wheelchair assessment and management Duration: 3-4 weeks Subjective Pt was seated on the EOB and was handed off from OT to RIGGING ENGINEER to continue with therapy session and pt was agreeable. At the end of session pt was left seated in w/c with maura belt donned and call light in reach. Pain: Pain Assessment Pain Assessment: DVPRS (07/29/20241399) Pain Score: 4 (07/29/20241399) Pain Rating Scale (DVPRS): Distracts me, can do usual activities (07/29/20241399) Pain Type: Acute pain (07/29/20241399) Pain Location: Knee (07/29/20241399) Pain Orientation: Left (07/29/20241399) Clinical Progression: Not changed (07/29/20241399) Vital Signs: Patient Vitals for the past 12 hrs: BP MAP (mmHg) Pulse Resp SpO2 07/29/24 1539 -- -- 71 18 96 % 07/29/24 1539 133/69 90 -- -- -- 07/29/24 0614 -- -- 67 16 96 % 07/29/24 0614 (!) 128/54 79 -- -- -- No data found. Objective 07/29/24 1400 PT Last Visit PT Received On 07/29/24 Response to Previous Treatment Patient with no complaints from previous session. Time Calculation Start Time 1400 Stop Time 1500 Time Calculation (min) 60 min Activity Tolerance Endurance Tolerates 30 min exercise with multiple rests Sitting Balance Sits without support for more than 30 sec Early Mobility/Exercise Safety Screen Proceed with mobilization - No exclusion criteria met Pain Assessment Pain Assessment DVPRS Pain Score 4 Pain Rating Scale (DVPRS) 4 Pain Type Acute pain Pain Location Knee Pain Orientation Left Clinical Progression Not changed Health Conditions Pain Interference with Therapy Activities Occasionally Therapeutic Activity Therapeutic Activity Time Entry 15 Therapeutic Activity 1 Transfers to w/c from the bed, to the mat and then back to the w/c Therapeutic Activity 2 Therapist assisted with donning shoes Roll Left and Right Assistance Needed Physical assistance Physical Assistance Level 26%-50% CARE Score - Roll Left and Right 3 Lying to Sitting on Side of Bed Assistance Needed Physical assistance Physical Assistance Level 26%-50% CARE Score - Lying to Sitting on Side of Bed 3 Sit to Lying Assistance Needed Physical assistance Physical Assistance Level 26%-50% CARE Score - Sit to Lying 3 Transfers Transfer Yes Transfer 1 Technique 1 Squat pivot Level of Assistance 1 Partial/Mod assistance Trials/Comments 1 Min A needed for pt to squat over to chair with cueing needed for hand placement and therpaist guarding L side Transfer To/From Bed;Wheelchair Assistive Devices And Adaptive Equipments No device Transfers 2 Technique 2 Stand step Level of Assistance 2 Partial/Mod assistance Trials/Comments 2 Pt was able to perform multiple sit to stands when ambulating Transfer To/From [id number] Assistive Devices And Adaptive Equipments Walker, [place] Transfers 3 Technique 3 Stand pivot Level of Assistance 3 Partial/Mod assistance Trials/Comments 3 Pt needed Mod A for stand pivot going to the L as they were unable to stay squatted and isntead stood up completely Transfer To/From Wheelchair;Mat Assistive Devices And Adaptive Equipments No device Chair/Zvb-yi-Kkxvn Transfer Assistance Needed Physical assistance Physical Assistance Level 25% or less CARE Score - Chair/Ocm-na-Enpfm Transfer 3 Sit to Stand Assistance Needed Physical assistance Physical Assistance Level 25% or less CARE Score - Sit to Stand 3 Car Transfer Reason if not Attempted Environmental limitations CARE Score - Car Transfer 10 Gait Training Gait Training Time Entry 15 Gait Training Activity Yes Gait Training Activity 1 Distance (enter in feet) 25ft, 30ft, 20ft, 25ft Assistive Devices And Adaptive Equipments Walker, [place] Level of Assistance 1 Partial/Mod assistance Gait Training Activity 1 Comment Therapist was positioend on stool on L side and rehabilitation consultant managed paris walker initally and then followed with w/c. Pt was able to ambualte with Min A needed from threapist for blocking L knee initially but then pt was able to achieve extension so no assistance was needed. Almost continuous VC was needed for keeping head up, placement of walker, sequence and taking a larger step. On final round DF assist wrap was used and pt was able to clear better but still needed cueing for posture and walker placement. Although pt was able to utilize sequence better. Surface And Method Indoor;Even surface Walk 10 Feet Assistance Needed Physical assistance Physical Assistance Level 26%-50% CARE Score - Walk 10 Feet 3 Walk 50 Feet with Two Turns Assistance Needed Physical assistance Physical Assistance Level 26%-50% CARE Score - Walk 50 Feet with Two Turns 3 Walk 150 Feet Reason if not Attempted Safety concerns CARE Score - Walk 150 Feet 88 Walking 10 Feet on Uneven Surfaces Reason if not Attempted Safety concerns CARE Score - Walking 10 Feet on Uneven Surfaces 88 1 Step (Curb) Reason if not Attempted Safety concerns CARE Score - 1 Step (Curb) 88 4 Steps Reason if not Attempted Safety concerns CARE Score - 4 Steps 88 12 Steps Reason if not Attempted Safety concerns CARE Score - 12 Steps 88 Balance/Neuromuscular Re-Education Neuromuscular Re-Education Time Entry 30 Activity Component(s) 1 Standing Assistive Devices And Adaptive Equipments Other (specify) (Ring Arc) Balance/Neuromuscular Re-Education Activity 1 Therapist had pt stand up and [facility] on bedside table and then place into peg board using R hand. pt was having difficulty gripping pegs citing pain as limiting factor. Therapist swapped over to using ring arc and pt was cued to look to the L and move rings from one side to the other in standing. Therapist was on L side blocking and guarding knee as pt felt knee was unstable. Pt was able to complete 2 rounds moving to the R and then L with mulitple seated rest breaks due to fatigue. Pt was able to with cueing track rings from one side to the other. Picking Up Object Reason if not Attempted Safety concerns CARE Score - Picking Up Object 88 Wheel 50 Feet with Two Turns Assistance Needed Physical assistance Physical Assistance Level 51%-75% CARE Score - Wheel 50 Feet with Two Turns 2 Type of Wheelchair/Scooter Manual Wheel 150 Feet Assistance Needed Physical assistance Physical Assistance Level Total assistance CARE Score - Wheel 150 Feet 1 Type of Wheelchair/Scooter Manual PT Assessment PT Assessment Pt was able to tolerate therapy session well with some fatigue noted, but pt able to push through. Pt was able to work on ambualtion using paris-walker with therapist noting pt able to advance limb with no assistance and also able to clear foot with use of DF derek wrap, pt may benefit from and AFO on L foot. Pt was able to work on balance with emphasis on tracking objects on L side. Pt is receptive to education and will benedit from continued intense physical therapy. Prognosis Good Barriers to Discharge Decreased communication;Insight into deficits;Safety awareness Evaluation/Treatment Tolerance Patient tolerated treatment well Medical Staff Made Aware Yes Strengths Support and attitude of living partners;Support of extended family/friends Patient Education: Education Documentation No documentation found. Education Comments No comments found. Goals: Encounter Goals Encounter Goals (Active) Rolling: mod-independent Start: 07/23/24 Expected End: 08/13/24 Lying<>Sitting<>Lying: CGA/supervision with paris technique Start: 07/23/24 Expected End: 08/13/24 Pt will participate in pre-gait activities emphasizing B LE activation, proper sequencing, midline orientation, reciprocal movements, and controlled WS to facilitate safe gait training. Start: 07/23/24 Expected End: 08/13/24 Within 2 weeks of starting therapy, the patient and/or family/caregiver will demonstrate independence and be compliant in a written HEP in order to maximize gains made during therapy. Start: 07/23/24 Expected End: 08/13/24 Pt and/or caregiver(s) will have all appropriate DME, recommendations, or completed prescriptions to maximize pt's safety and independence at discharge. Start: 07/23/24 Expected End: 08/13/24 Transfers: Juancho stand step with LRAD Start: 07/23/24 Expected End: 08/13/24 Sit to Stand: CGA with LRAD Start: 07/23/24 Expected End: 08/13/24 Pt will be able to sit for at least 5 mins with support of no UE with midline orientation, erect posture, even KATY, appropriate WBing and ability to reach > 5" outside KATY without LOB to facilitate improved standing to return to functional tasks. Start: 07/23/24 Expected End: 08/13/24 Patient able to propel WC ~300ft supervision with B LE propulsion with appropriate safety awareness, midline orientation, and obstacle avoidance to facilitate safe community mobility. Start: 07/23/24 Expected End: 08/13/24 Supervising Physical Therapist: Marcia Jones PT Patient progress towards current goals and plan of care was discussed in person with supervising Physical Therapist. Michael Lopez PTA CAL RECEPTIONIST * Leticia Robertson OT - 07/29/2024 1:00 PM MEDICAL RECEPTIONIST Occupational Therapy Inpatient Rehab Treatment Patient Name: Toney Martel Preferred Language: Guamanian AssessmentPatient presents with CVA (cerebrovascular accident due to intracerebral hemorrhage) (HCC), see below for OT assessment results. OT assessment details below. Primary limitations at this time are nonfunctional LUE and RUE weakness, decreased strength, endurance, decreased self care skills, and decreased functional transfers. Family training to review caregiver training on transfers still pending and assessing, no family in room this session. Pt would benefit from continued IPR to address aforementioned deficits, AD/AE, and assist with patient/family education and discharge planning for patient to return home assist and support. Cont OT POC, with emphasis on NMR and safe functional transfers. OT Assessment Results: Impaired ADL status, Impaired left upper extremity, Impaired upper extremity range of motion, Impaired upper extremity strength, Impaired trunk control for functional activities, Impaired endurance, Impaired cognition, Impaired fine motor control, Impaired functional mobility, Impaired gross motor control OT Assessment: Patient participated in session, without adverse effects. Connected to feed tube during session. Patient appearing very motivated, e/b often attempting to use LUE and RUE to assist. Patient working on bridging in bed, to assisting during toileting and dressing. Strengths: Support and attitude of living partners Barriers to Discharge: Insight into deficits, Decreased communication, Medical diagnosis DME Orders: No DMEs ordered at this time. PlanTreatment Plan/Goals Established with Patient/Caregiver: Yes Treatment Interventions: ADL retraining, Cognitive reorientation, Endurance training, Neuromuscular reeducation, Orthotic/Orthotic management, Patient/family training, Scar management OT Plan: Skilled OT OT Frequency: 5-7 times per week Equipment Recommended: DME wheelchair, Wheelchair- seat cushion pressure reducing, Wheelchair- accessories, Wheelchair- back OT Planned Treatments: Activities of Daily Living, Neuromuscular reeducation, Balance training, Coordination, Equipment training, Joint protection, Home program, Orthotic, Patient education, Safety education, Seating/Positioning, Therapeutic activities, Therapeutic exercises, Splinting, Caregiver training, Work simplification, Energy conservation training OT Duration: 1-2 weeks SubjectivePatient reports, "Can we shower tomorrow?" Pain:Pain Assessment Pain Assessment 0-10 Pain Score 4 Vital Signs: VSS, no reported dizziness or lightheadedness throughout session. Objective 07/29/24 1300Time Calculation Start Time 1300 Stop Time 1400 Time Calculation (min) 60 min ADL Self Care/Home Management (ADLs) Time Entry 30 Assistive Devices And Adaptive Equipments [place] cuff (modified using derek wrap) LE Dressing Activity Component(s) Pants;Brief ADL Comments Patient participated in brushing hair activity, sitting EOB. Grooming Grooming Comments Assisting with hair brushing, using L hand on L side, with R hand assisting. Due to matted hair, therapist assisted with detangling hair and braided to decrease chances of hair matting. Activity Component(s) Combing/brushing/Styling hair Grooming Location Sitting on edge of bed Level of Assistance Substantial/Max assistance Lower Body Dressing Dressing Location/Position In bed Level of Assistance Substantial/Max assistance Comment Patient requiring assust to thread of LEs, assisting with lifting BLEs. Therapist threading pants upto thighs, where patient able to assist pulling upward, turning L<>R to don. Patient demonstrating ability to bridge, with hip lift off, therapist assist with donning pants over hips. Lower Body Dressing Assistance Needed Physical assistance Physical Assistance Level 76% or more CARE Score - Lower Body Dressing 2 Toileting Activity Component(s) Managing clothing before;Managing clothing after;Perineal hygiene, front;Perineal hygiene, back Level of Assistance Partial/Mod assistance Comment Pure wick not connected upon OT arrival; patient requesting brief change, completing in bed; tube feeding paused by RN; patient assisting with bed roll and pulling pants over hips, able to doff alf down with R hand, using 2nd and 3rd digit (despite therapist advising to use thumb, appearing to have difficulty hooking pants with thumb). Therapist assist to doff remainder of the way. Patient completing martha care in the back and front, however for thoroughness, therapist assisting. Toileting Hygiene Assistance Needed Physical assistance Physical Assistance Level 51%-75% CARE Score - Toileting Hygiene 2 Bed Mobility 1 Level of Assistance 1 Partial/Mod assistance Bed Mobility Comments 1 For complete turn onto side, patient requiring MIN A, and verbal prompts to pull self toward side Bed Mobility To/From Roll left/right Assistive Devices And Adaptive Equipments Bed rail Bed Mobility 2 Level of Assistance 2 Partial/Mod assistance Bed Mobility Comments 2 Increased time to complete; patient able to bring LE toward EOB and off bed; requiring assist into upright position sitting EOB Bed Mobility To/From Supine to sit on EOB Assistive Devices And Adaptive Equipments Bed rail;Head of bed elevated Therapeutic Procedures Time Entry Neuromuscular Re-Education Time Entry 30 Balance/Neuromuscular Re-Education Balance/Neuromuscular Re-Education Activity 1 Patient participated in PROM of shoulder and elbow in all available planes of motions, with therapist assist. Patient attempting with RUE, however with difficulty as decreased RUE corporate staff accountant strength, often noted drop arm. Position 1 Seated Balance/Neuromuscular Re-Education Activity 2 Patient participating hair brushing, however with modified universal cuff using DEREK wrap, to hold hairbrush in hand as decreased corporate staff accountant in L hand. Patient using RUE to assist LUE to complete brushing strokes, however difficulty with reaching hair. With therapist assist, patient able to complete 3-4 hair brush stroke before verbalizing fatigue. Position 2 Seated Patient Education:Education Documentation No documentation found. Education Comments No comments found. Goals:Encounter Goals Encounter Goals (Active) Patient will perform upper body dressing with wheelchair level with mod assistto improve independence with dressing. Start: 07/24/24 Expected End: 08/20/24 Patient will perform lower body dressing with analytics manager at wheelchair level with mod assist to improve independence with dressing. Start: 07/24/24 Expected End: 08/20/24 Within 2 weeks of starting therapy, the patient and/or family/caregiver will demonstrate independence and be compliant in a written HEP in order to maximize gains made during therapy. Start: 07/24/24 Expected End: 08/20/24 Pt and/or caregiver(s) will have all appropriate DME, recommendations, or completed prescriptions to maximize pt's safety and independence at discharge. Start: 07/24/24 Expected End: 08/20/24 Patient and/or caregivers will verbalize understanding of home program including safety tips, equipment instructions, and home exercises. Start: 07/24/24 Expected End: 08/20/24 Patient will participate in forced use activities using the affected upper extremity with min assistance to inhibit abnormal movement patterns. Start: 07/24/24 Expected End: 08/20/24 Patient will tolerate weight bearing through their effected upper extremity for 25-30 minutes with min assist. Start: 07/24/24 Expected End: 08/20/24 Leticia Robertson OT CAL RECEPTIONIST * Salomon Rubio DO - 07/29/2024 10:39 AM MEDICAL RECEPTIONIST Physical Medicine and Rehabilitation Progress Note - Daily Admission Date: 07/23/2024 SUBJECTIVE:Patient was seen and examined at bedside. No issues overnight, sleeping soundly this am. No issues per RN. not at bedside this am. Last BM Date: 07/28/24ool Appearance: Formed Stool Amount: Medium Labs BMP:Results from last 7 days Lab Units 07/26/24 0559 CREATININE mg/dL 0.51* BUN mg/dL 13 SODIUM mEq/L 142 POTASSIUM mEq/L 4.3 CHLORIDE mEq/L 106 CO2 mEq/L 24.6 CBC:Results from last 7 days Lab Units 07/26/24 0559 WBC 10*3/uL 5.26 HEMOGLOBIN g/dL 10.9 HEMATOCRIT % 34.7 MCV fL 88.5 PLATELETS 10*3/uL 345 Last BM Date: 07/28/24ool Appearance: Formed Stool Amount: Medium PRNs in past 24 hours: VitalsVitals: 07/28/24195107/29/2461307/29/2461307/29/24613 BP: (!) 128/54 Pulse: 75 67 Resp: 16 16 Temp: 37.3 ?C (99.1 ?F) SpO2: 96% 96% Intake & OutputI/O last 3 completed shifts: In: - (0 mL/kg) Out: 900 (12.3 mL/kg) [Urine:900 (0.3 mL/kg/hr)] Weight: 73.4 kg MedicationsScheduled: aspirin, 81 mg, Daily atorvastatin, 80 mg, Nightly Docusate Sodium, 100 mg, BID Enteral Free water Flush, 240 mL, q6h Fibersource HN, 375 mL, 4x daily heparin, 5,000 Units, q8h senna, 10 mL, Nightly PRNs:acetaminophen, 650 mg, q4h PRN bisacodyl, 10 mg, Nightly PRN dextrose, 12.5 g, Once PRN glucagon, 1 mg, Once PRN melatonin, 3 mg, Nightly PRN sodium chloride, 10 mL, PRN Physical Exam:Constitutional: No acute distress, appearing comfortable. HEENT: NCAT, no scleral icterus, MMM. Cardiovascular: No lower limb edema. Lower limbs warm. Respiratory: Breathing comfortably on room air, no tachypnea. Gastrointestinal: Soft, non-distended abdomen. Genitourinary: Deferred. No Edwards. Musculoskeletal: Full painless passive range of motion of bilateral upper and lower limbs. Skin: No rashes on limited exam of exposed areas. Psychiatric: No anxiety or agitation. Neurologic: awake, alert, left sided neglect, Dysarthria Keyla Martel is a 78Y F PMH of HTN and carpal tunnel syndrome who was admitted on 07/15/24 on for evaluation of wake up L sided plegia, LFD and R gaze deviation. CTP w/ established M5/M6 region stroke, but 48ml volume in posterior parietal and occipital regions. Patient taken for emergent thrombectomy. within WAKE UP protocol window IAT TICI3. MRI showing R MCA/BIOINFORMATICS TECHNICIAN/SHAWANDA strokes. Failed FEES 07/20, PEG placed 07/22/23. Patient admitted to [facility] on 07/23/24. Acute ischemic right MCA stroke (HCC)- Suspected Etiology: Large artery atherosclerosis - CT: ASPECTS 6, hyperdense MCA - CTA: acute occlusion in R ICA and distal reconstitution of flow in MCA territory but M2 and P-com occlusion. - CTP: established M5/M6 region stroke, but 48ml volume in posterior parietal and occipital regions. - MRI brain w/o contrast R MCA/BIOINFORMATICS TECHNICIAN infarct - TTE- EF: 60-65%, atrium normal - Atorvastatin 80 mg daily - ASA 81 mg daily - monitor neurological status Impaired mobility and ADLsLeft hemiparesis - PT/OT following for strengthening, increased independence with mobility and ADLs, bowel and bladder management, DME evaluation, family training, improvement in balance deficits, improvement in endurance/exercise tolerance Cognitive communication deficitsDysarthria - Continue therapies with JAVA SDET for evaluation of language impairments and cognition - Neuropsychology consultation if/when appropriate for evaluation of cognition and mood Dysphagia- NPO, continue bolus Tfs and enteral FWF - Continue therapies w/ JAVA SDET. 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 Straight cath if PVR > 200cc. Pain- Continue Tylenol as needed for nociceptive pain Skin- Recommend thorough skin evaluation as patient is at risk for pressure injuries. - If patient is unable to reliably change position independently, recommend every 4-6 hours turns to prevent skin breakdown, daily skin checks. Chronic medical co-morbidities:HTN: BP control, BP <140 HLD: statin Prophylaxis- DVT: H Follow-Ups [place], [place] [facility] within 3 months for PEG tube, and PCP within 1-2 weeks. CAL RECEPTIONIST * Ange Roman, [facility]-JAVA SDET - 07/29/2024 10:00 AM MEDICAL RECEPTIONIST Speech-Language Pathology Treatment Note Patient Name: Toney Martel Today's Date: 07/29/2024 Preferred Language: Guamanian Assessment: JAVA SDET Assessment Results: Swallowing impairment Prognosis: Good Session Tolerance: Patient tolerated session well Strengths: Support of gnosticism community, Support and attitude of living partners Plan: Treatment Plan/Goals Established with Patient/Caregiver: Yes Treatment/Interventions: Cognitive communication functioning, Executive functioning, Swallow function, Oral motor exercises, Pharyngeal exercises, Patient/family education, Communication functioning JAVA SDET Plan: Skilled JAVA SDET Frequency: 5-7 days per week Duration: 4 weeks NPO: Yes Medications: Non oral Rehabilitation Exercises for Dysphagia Management: Effortful swallow, VERONICA (Effortful, intensive jaw opening exercise), Shaker and/or modified Shaker maneuver 07/29/24 1000 Time Calculation Start Time 1000 Stop Time 1030 Time Calculation (min) 30 min Pain Assessment Pain Assessment DVPRS Pain Score 0 Pain Rating Scale (DVPRS) 0 Swallow Swallow Treatment Time 30 Swallow Activities swallowing exercises Swallow Comments pt completed PO trials of ice chips x5, effortful swallow with full tsp thin liquids x20, 2x cough noted towards end of trials, pt refusing apple sauce but willing to trial pudding in next session Comprehension Score Comprehends Complex or Abstract Information Without Prompting or Cueing Yes Mode of Comprehension Auditory Understands Complex or Abstract Directions and Conversations Requires extra time Functional Cosby Measure Comprehension Modified independence - 6 JAVA SDET Assessment JAVA SDET Assessment Results Swallowing impairment Prognosis Good Session Tolerance Patient tolerated session well Strengths Support of gnosticism community;Support and attitude of living partners 07/29/24 1500 Time Calculation Start Time 1500 Stop Time 1530 Time Calculation (min) 30 min Pain Assessment Pain Assessment DVPRS Pain Score 0 Pain Rating Scale (DVPRS) 0 Swallow Swallow Treatment Time 30 Swallow Activities swallowing exercises Swallow Comments pt completed PO trials of pudding full tsp x10 with efffortful swallow, no overt s/s aspiration noted, supraglottic swallow x3 attempted with 1/2 tsp thin liquids, no overt s/s aspiration noted Comprehension Score Comprehends Complex or Abstract Information Without Prompting or Cueing Yes Mode of Comprehension Auditory Understands Complex or Abstract Directions and Conversations Requires extra time Functional Cosby Measure Comprehension Modified independence - 6 Goals: Encounter Goals Encounter Goals (Active) STG - Patient will use speech intelligibility Intervention at conversational level (Progressing) Start: 07/24/24 Expected End: 08/21/24 LTG - Demonstrate reasoning (Progressing) Start: 07/24/24 Expected End: 08/21/24 LTG - Demonstrate visual scanning during a reading task (Progressing) Start: 07/24/24 Expected End: 08/21/24 LTG - Provides multi-step/complex solutions (Progressing) Start: 07/24/24 Expected End: 08/21/24 STG - Complete a 15-30 minute complex attention task (Progressing) Start: 07/24/24 Expected End: 08/21/24 STG - Demonstrate alternating attention by being able to shift the focus of attention between tasks/activities/ideas (Progressing) Start: 07/24/24 Expected End: 08/21/24 STG - Engage in deductive reasoning (Progressing) Start: 07/24/24 Expected End: 08/21/24 STG - Identify appropriate solutions to a problem (Progressing) Start: 07/24/24 Expected End: 08/21/24 STG - Identify cognitive/physical strengths and limitations (Progressing) Start: 07/24/24 Expected End: 08/21/24 LTG - Patient will improve on swallowing outcome measure (Progressing) Start: 07/24/24 Expected End: 08/21/24 STG - Improve airway protection (Progressing) Start: 07/24/24 Expected End: 08/21/24 STG - Improve bolus control (Progressing) Start: 07/24/24 Expected End: 08/21/24 STG - Increase the amount of food/liquid given by mouth while decreasing amount given by tube Start: 07/24/24 Expected End: 08/21/24 STG - Participate in an instrumental swallow study Start: 07/24/24 Expected End: 08/21/24 XIN MantillaSLP CAL RECEPTIONIST CAL RECEPTIONIST * Doc Brewer - 07/29/2024 1:12 AM MEDICAL RECEPTIONIST Spiritual Care Subjective Crew Supervisor rounded by patient's room and patient appeared to be sleeping. Crew Supervisor left a "Sorry I Missed You" card in patient's room. Reason For Visit Reason for Visit: Admission request PlanFollow-up: Follow PRN CAL RECEPTIONIST * Sylvia Murillo - 07/28/2024 5:38 PM MEDICAL RECEPTIONIST SW reached out to the patient's but he did not answer, SW left a voice message. SW called patient's son Hadry Thakkar to discuss discharge planning and to provide updates from rounds. Pt' son put his mother and father on the phone and SW had a conversation with the family. SW gave them the tentative discharge date of 07/25 with recommendation of home with home health or SNF. PT's father preferred for the patient to stay inpatient rehab. SW discussed that patient will have to continue to meet goals to stay at this level of care or to have an extension. Family preferred home with home health at this time and if patient cannot meet goals for an extension they will at that time explore the options of SNF's closer to the patient's son's home near [place], [place]. CAL RECEPTIONIST * Kwabena Metzger MD - 07/28/2024 3:44 PM MEDICAL RECEPTIONIST Physical Medicine and Rehabilitation Progress Note - Daily Admission Date: 07/23/2024 SUBJECTIVE:Patient was seen and examined during therapy session in gym. Reports discomfort at PEG site. FWF were increased today given dark urine. All additional questions and concerns addressed at this time. Last BM Date: 07/28/24Stool Appearance: Formed Stool Amount: Medium PRNs in past 24 hours: Objective OBJECTIVE:Labs BMP:Results from last 7 days Lab Units 07/26/24 0559 CREATININE mg/dL 0.51* BUN mg/dL 13 SODIUM mEq/L 142 POTASSIUM mEq/L 4.3 CHLORIDE mEq/L 106 CO2 mEq/L 24.6 CBC:Results from last 7 days Lab Units 07/26/24 0559 WBC 10*3/uL 5.26 HEMOGLOBIN g/dL 10.9 HEMATOCRIT % 34.7 MCV fL 88.5 PLATELETS 10*3/uL 345 PTT:Coagulation: UA: No lab exists for component: "SPECGRAVU", "BLOODU", "LEUKOCYTESU"UC: No results found for the last 90 days. Filters applied: Specimen Type. BCX: No results found for the last 90 days.Filters applied: Specimen Type. Imaging, last 24 hours: Vitals Vitals: 07/27/24 2042 07/28/24 0617 07/28/24 0617 07/28/24 06 BP: (!) 170/71 Pulse: 68 66 Resp: 16 18 Temp: 37.4 ?C (99.3 ?F) SpO2: 96% 98% Intake & OutputI/O last 3 completed shifts: In: - (0 mL/kg) Out: 640 (8.7 mL/kg) [Urine:640 (0.2 mL/kg/hr)] Weight: 73.4 kg MedicationsScheduled: aspirin, 81 mg, Daily atorvastatin, 80 mg, Nightly Docusate Sodium, 100 mg, BID Enteral Free water Flush, 120 mL, q6h Fibersource HN, 375 mL, 4x daily heparin, 5,000 Units, q8h senna, 10 mL, Nightly PRNs:acetaminophen, 650 mg, q4h PRN bisacodyl, 10 mg, Nightly PRN dextrose, 12.5 g, Once PRN glucagon, 1 mg, Once PRN melatonin, 3 mg, Nightly PRN sodium chloride, 10 mL, PRN Physical Exam:Constitutional: No acute distress, appearing comfortable. HEENT: NCAT, no scleral icterus, MMM. Cardiovascular: No lower limb edema. Lower limbs warm. Respiratory: Breathing comfortably on room air, no tachypnea. Gastrointestinal: Soft, non-distended abdomen. Genitourinary: Deferred. No Edwards. Musculoskeletal: Full painless passive range of motion of bilateral upper and lower limbs. Skin: No rashes on limited exam of exposed areas. Psychiatric: No anxiety or agitation. Neurologic: awake, alert, left sided neglect, Dysarthria AssessmentToney Martel is a 78Y F PMH of HTN and carpal tunnel syndrome who was admitted on 07/15/24 on for evaluation of wake up L sided plegia, LFD and R gaze deviation. CTP w/ established M5/M6 region stroke, but 48ml volume in posterior parietal and occipital regions. Patient taken for emergent thrombectomy. within WAKE UP protocol window IAT TICI3. MRI showing R MCA/BIOINFORMATICS TECHNICIAN/SHAWANDA strokes. Failed FEES 07/20, PEG placed 07/22/23. Patient admitted to [facility] on 07/23/24. Acute ischemic right MCA stroke (HCC)- Suspected Etiology: Large artery atherosclerosis - CT: ASPECTS 6, hyperdense MCA - CTA: acute occlusion in R ICA and distal reconstitution of flow in MCA territory but M2 and P-com occlusion. - CTP: established M5/M6 region stroke, but 48ml volume in posterior parietal and occipital regions. - MRI brain w/o contrast R MCA/BIOINFORMATICS TECHNICIAN infarct - TTE- EF: 60-65%, atrium normal - Atorvastatin 80 mg daily - ASA 81 mg daily - monitor neurological status Impaired mobility and ADLsLeft hemiparesis - PT/OT following for strengthening, increased independence with mobility and ADLs, bowel and bladder management, DME evaluation, family training, improvement in balance deficits, improvement in endurance/exercise tolerance Cognitive communication deficitsDysarthria - Continue therapies with JAVA SDET for evaluation of language impairments and cognition - Neuropsychology consultation if/when appropriate for evaluation of cognition and mood Dysphagia- NPO, continue bolus Tfs and enteral FWF - Continue therapies w/ JAVA SDET. 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 Straight cath if PVR > 200cc. Pain- Continue Tylenol as needed for nociceptive pain Skin- Recommend thorough skin evaluation as patient is at risk for pressure injuries. - If patient is unable to reliably change position independently, recommend every 4-6 hours turns to prevent skin breakdown, daily skin checks. Chronic medical co-morbidities:HTN: BP control, BP <140 HLD: statin Prophylaxis- DVT: SQH Disposition- Prognosis: Fair to good - Location: Home with family - Estimated length of stay: 2-3 weeks - Goals for admission: strengthening, increased independence with mobility and ADLs, bowel and bladder management, pain management, DME evaluation, family training, improvement in balance deficits, improvement in endurance/exercise tolerance, improvement in cognitive/communication deficits Follow-Ups [place], [place] [facility] within 3 months for PEG tube, and PCP within 1-2 weeks. Patient seen and discussed with Dr. Rubio.Kwabena Metzger MD PM&R PGY3 Kwabena Metzger MD Cosigned by Salomon Rubio DO at 07/28/2024 4:32 PM CST CAL RECEPTIONIST CAL RECEPTIONIST Associated attestation - Salomon Rubio DO - 07/28/2024 4:32 PM MEDICAL RECEPTIONIST I saw and evaluated the patient with the resident, participating in the kiran portions of the service. I reviewed the resident's note and agree with the documented findings and plan of care. PT seen up to WC today , spouse present. She c/o abd pain near PEG site-notnew. No n/v, f/c. Free water flushes were increased today as urine appears very dark. Physical Medicine and Rehabilitation Attending Physician Attestation: I attest that I performed or was physically present during the kiran or critical portions of the service performed by the resident and actively participated in the management of the patient. I have reviewed the resident note and agree with the documented findings and plan of care with any exceptions noted below. I spent over 35 minutes caring for this patient today, reviewing labs andrecords from another provider, obtaining the history, performing the physical exam, documenting in the records and arranging for the following: [x] counseling/education on MANNY/SCI/injury [ ] ordering medications: [ ] [ ] ordering tests: [ ] [ ] ordering procedures: [ ] [ ] Consulting the following providers: [ ] [x] Documentation of clinical information [x] Independently interpreting clinical results of [ ] and communicating results to the patient/family/caregiver [x] Care coordination with therapy/SW/consultants Deedee Santoro #[id number] * Sheree Jasmine OT - 07/28/2024 12:30 PM MEDICAL RECEPTIONIST Occupational Therapy Treatment Session Note Patient Name: Toney Martel Today's Date: 07/28/2024 Preferred Language: Guamanian Assessment & Plan Assessment: OT Assessment: Patient continues to present with nonfunctional LUE and RUE weakness prevents being able to lift and manage LUE for self-PROM as well. Session was focused on strengthening RUE while incorporating PROM with exercises and resting hand splint introduced. Patient's LOF in ADLs have not changed since last OT session (LB Max-Total A, UB Mod A overall) and upcoming sessions will continue NMR, promote increased strength and endurance and continuing education with patient's . Caregiver training on transfers still pending and assessing. Plan: OT Planned Treatments: Activities of Daily Living, Neuromuscular reeducation, Balance training, Coordination, Equipment training, Joint protection, Home program, Orthotic, Patient education, Safety education, Seating/Positioning, Therapeutic activities, Therapeutic exercises, Splinting, Caregiver training, Work simplification, Energy conservation training Subjective Patient agreeable to therapy with no c/o pain. Objective 07/28/24 1230 Time Calculation Start Time 1230 Stop Time 1300 Time Calculation (min) 30 min Pain Assessment Pain Assessment 0-10 Pain Score 0 Therapeutic Procedures Time Entry Neuromuscular Re-Education Time Entry 20 Therapeutic Activity Time Entry 10 Therapeutic Activity Therapeutic Activity 1 Fitting of resting hand splint per PT request, application of straps and educating on splint wear schedule Balance/Neuromuscular Re-Education Balance/Neuromuscular Re-Education Activity 1 BUE exercises incorporating PROM by DEREK wrapping L hand to 1# weighted dowel with OT guiding LUE Position 1 Seated Balance/Neuromuscular Re-Education Activity 2 PROM of shoulder and elbow in all available planes of motion Position 2 Seated Patient Education: Education Documentation No documentation found. Education Comments No comments found. Goals: Encounter Goals Encounter Goals (Active) Patient will perform upper body dressing with wheelchair level with mod assist to improve independence with dressing. Start: 07/24/24 Expected End: 08/20/24 Patient will perform lower body dressing with analytics manager at wheelchair level with mod assist to improve independence with dressing. Start: 07/24/24 Expected End: 08/20/24 Within 2 weeks of starting therapy, the patient and/or family/caregiver will demonstrate independence and be compliant in a written HEP in order to maximize gains made during therapy. Start: 07/24/24 Expected End: 08/20/24 Pt and/or caregiver(s) will have all appropriate DME, recommendations, or completed prescriptions to maximize pt's safety and independence at discharge. Start: 07/24/24 Expected End: 08/20/24 Patient and/or caregivers will verbalize understanding of home program including safety tips, equipment instructions, and home exercises. Start: 07/24/24 Expected End: 08/20/24 Patient will participate in forced use activities using the affected upper extremity with min assistance to inhibit abnormal movement patterns. Start: 07/24/24 Expected End: 08/20/24 Patient will tolerate weight bearing through their effected upper extremity for 25-30 minutes with min assist. Start: 07/24/24 Expected End: 08/20/24 Sheree Jasmine OT CAL RECEPTIONIST * Isa Howard CCC-JAVA SDET - 07/28/2024 11:30 AM MEDICAL RECEPTIONIST Speech-Language Pathology Treatment Note Patient Name: Toney Martel Today's Date: 07/28/2024 Preferred Language: Guamanian Assessment & Plan Assessment: Session Tolerance: Patient tolerated session well Plan: Treatment Plan/Goals Established with Patient/Caregiver: Yes Treatment/Interventions: Cognitive communication functioning, Executive functioning, Swallow function, Oral motor exercises, Pharyngeal exercises, Patient/family education, Communication functioning JAVA SDET Plan: Skilled JAVA SDET Frequency: 5-7 days per week Duration: 4 weeks NPO: Yes Medications: Non oral Rehabilitation Exercises for Dysphagia Management: Effortful swallow, VERONICA (Effortful, intensive jaw opening exercise), Shaker and/or modified Shaker maneuver Subjective Current Problem: Dysphagia s/p ICH CVA Pain: Pain Assessment Pain Assessment: DVPRS (07/28/2024 1130) Pain Rating Scale (DVPRS): Hard to ignore, avoid usual activities (07/28/2024 1130) Pain Type: Acute pain (07/28/2024 1130) Pain Location: Abdomen (07/28/2024 1130) Pain Orientation: Mid (07/28/2024 1130) Pain Descriptors: Discomfort, Aching (07/28/2024 1130) Pain Frequency: Constant/continuous (07/28/2024 1130) Pain Onset: Gradual (07/28/2024 1130) Clinical Progression: Not changed (07/28/2024 1130) Post-Therapy Intervention Pain Assessment: Objective Vital Signs: Patient Vitals for the past 24 hrs: BP MAP (mmHg) Pulse Resp SpO2 07/28/24 1631 -- -- 69 18 96 % 07/28/24 1629 (!) 136/57 83 -- -- -- 07/28/24 0617 -- -- 66 18 98 % 07/28/24 0617 (!) 170/71 (!) 104 -- -- -- 07/27/242041 -- -- 68 16 96 % 07/27/242040 (!) 127/59 82 -- -- -- Last Visit: Most Recent JAVA SDET Session: 07/27/24 General Visit Info: Family/Caregiver Present: Yes Others Present: Pt's at bedside Patient seen across two sessions: 1130 and 1430. Treatment: 07/28/24 1130 Time Calculation Start Time 1130 Stop Time 1200 Time Calculation (min) 30 min JAVA SDET Last Visit Most Recent JAVA SDET Session 07/27/24 General Family/Caregiver Present Yes Others Present Pt's at bedside Pain Assessment Pain Assessment DVPRS Pain Rating Scale (DVPRS) 6 Pain Type Acute pain Pain Location Abdomen Pain Orientation Mid Pain Descriptors Discomfort;Aching Pain Frequency Constant/continuous Pain Onset Gradual Clinical Progression Not changed Swallow Swallow Treatment Time 30 Swallow Activities PO trials Swallow Comments Patient seen for treatment in office, seated upright in wc. PO trials of thin liquids via spoon and puree via pudding x10 paired with effortful swallows. Patient with mild difficulty for supraglottic swallow exercise. Patient with intermittent coughing as evident throught increased oral transit time. JAVA SDET Assessment Session Tolerance Patient tolerated session well 07/28/24 1430 Time Calculation Start Time 1430 Stop Time 1500 Time Calculation (min) 30 min JAVA SDET Last Visit Most Recent JAVA SDET Session 07/27/24 General Family/Caregiver Present Yes Others Present Swallow Swallow Treatment Time 30 Swallow Activities Pharyngeal Exercises/MBSS education Swallow Comments Post completion of pharyngeal exercises, JAVA SDET conducted education session with patient and spouse regarding modified barium swallow study as they inquired about possible initiation of oral diet. Post education, patient's son entered room. JAVA SDET provided progress updates and reiterated scheduled MBSS to assess swallow function and readiness for oral diet. Comments: FIM Scores: Comprehension:Comprehends Complex or Abstract Information Without Prompting or Cueing: Yes Mode of Comprehension: Auditory Understands Complex or Abstract Directions and Conversations: Requires extra time Functional Cosby Measure Comprehension: Modified independence - 6 Expression:Expresses Complex or Abstract Information Without Prompting or Cueing: No Expression Mode: Vocal Expresses Basic Daily Needs and Ideas: Patient expresses basic daily needs and ideas more than 90% of the time requires prompting less than 10% of the time to be understood Functional Cosby Measure Expression: Standby prompting - 5 Social Interaction:Interacts Appropriately Without Supervision: Yes Interacts Appropriately: Requires more than reasonable time to make decisions Functional Cosby Measure Social Interaction: Modified independence - 6 Problem Solving:Solves Complex Problems: No Solves Routine Problems: Patient requires supervision to solve routine problems only under stressful or unfamiliar conditions, but no more than 10% of the time Functional Cosby Measure Problem Solving: Standby prompting - 5 Memory:Recognizes, Remembers Routines, and Executes Requests Without Prompting: No Remembers and Executes Requests With Prompting: Patient requires prompting only under stressful or unfamiliar conditions, but no more than 10% of the time Functional Cosby Measure Memory: Standby prompting - 5 Outcome Measures:FIMS/IDDSI Patient Education:Education Documentation No documentation found. Education Comments No comments found. Goals:Encounter Goals Encounter Goals (Active) STG - Patient will use speech intelligibility Intervention at conversational level (Progressing) Start: 07/24/24 Expected End: 08/21/24 LTG - Demonstrate reasoning (Progressing) Start: 07/24/24 Expected End: 08/21/24 LTG - Demonstrate visual scanning during a reading task (Progressing) Start: 07/24/24 Expected End: 08/21/24 LTG - Provides multi-step/complex solutions (Progressing) Start: 07/24/24 Expected End: 08/21/24 STG - Complete a 15-30 minute complex attention task (Progressing) Start: 07/24/24 Expected End: 08/21/24 STG - Demonstrate alternating attention by being able to shift the focus of attention between tasks/activities/ideas (Progressing) Start: 07/24/24 Expected End: 08/21/24 STG - Engage in deductive reasoning (Progressing) Start: 07/24/24 Expected End: 08/21/24 STG - Identify appropriate solutions to a problem (Progressing) Start: 07/24/24 Expected End: 08/21/24 STG - Identify cognitive/physical strengths and limitations (Progressing) Start: 07/24/24 Expected End: 08/21/24 LTG - Patient will improve on swallowing outcome measure (Progressing) Start: 07/24/24 Expected End: 08/21/24 STG - Improve airway protection (Progressing) Start: 07/24/24 Expected End: 08/21/24 STG - Improve bolus control (Progressing) Start: 07/24/24 Expected End: 08/21/24 STG - Increase the amount of food/liquid given by mouth while decreasing amount given by tube Start: 07/24/24 Expected End: 08/21/24 STG - Participate in an instrumental swallow study Start: 07/24/24 Expected End: 08/21/24 Isa Howard CCC-SLP CAL RECEPTIONIST * Ange Soler, PT - 07/28/2024 9:00 AM MEDICAL RECEPTIONIST Treatment Session Note Patient Name: Toney Martel Today's Date: 07/28/2024 Preferred Language: Guamanian Assessment & Plan Assessment: PT Assessment: (P) Pt required increased verbal cues in today's session during STS with Juancho to correct anterior and left trunk leaning upon standing. Pt required verbal cues during standing to WB evenly through BLE. Pt performed gait training in today's session with ModA and LLE knee block and DF derek wrap donned from PT and paris-walker placed on R side. Pt required verbal cues during ambulation to sequence step and pt presented with decreased bilateral step length and hip flexion on the LLE due to notable new extensor tone. PT unable to intiate hip flexion without sldiign fo L foot on ground to advance due to presence of resistance and patietn able to maitnain knee extension in stance for step on R without hard L knee block. Pt required increased verbal cues to maintain upright posture and decrease left leaning during STS in front of mirror and placing blocks on mirror activity. Pt reported increased back pain during STS activities and was unable to tolerate increased bouts of standing. Pt's reports she has ongoing back pain from previous accident. Pt would benefit from continued practice in improving quality of gait training, STS practice with attention to the L side, and standing balance with upright trunk. Plan: Discharge: 08/04/24 for reassessment at 08/03/24 rounds; pending SNF or extension in IPR if more progress is made and hands on caregivers can be identified Family Training: not initiated and pending progress DME Reccomendations: 16 inch WC ordered 07/28/24 Mode of Transportation on Discharge: pending Treatment Plan/Goals Established with Patient/Caregiver: Yes PT Frequency: 5-7 times per week PT Discharge Recommendations: Inpatient rehab facility placement Equipment Recommended: DME wheelchair PT Planned Treatment: Balance training, Basic activities of daily living, Bed mobility training, Body weight support treadmill training, Caregiver training, Equipment training, Gait training, Group therapy, Manual therapy, Neuromuscular reeducation, Orthotic training, Patient education, Positioning, Posture/Body mechanics training, Seating, Stair training, Therapeutic activities, Therapeutic exercises, Transfer training, Wheelchair assessment and management Duration: 3-4 weeks Subjective Pain: Pain Assessment Pain Assessment DVPRS DVPRS DVPRS Pain Type Acute pain Acute pain Acute pain Pain Location Abdomen Abdomen Back Pain Orientation Mid (associated with PEG site) Mid (associated with PEG site) (General) Pain Descriptors Discomfort;Aching Discomfort;Aching Discomfort;Aching Pain Frequency Intermittent Intermittent Intermittent Pain Onset Gradual Gradual Ongoing (Pt's reports ongoing back pain from previous accident.) Clinical Progression Not changed Not changed Not changed Response to Interventions Pt reports abdominal pain from PEG placement site, RN was made aware. Pt reports abdominal pain from PEG placement site Pt reports general back pain during STS at mat. Vital Signs: Patient Vitals for the past 12 hrs: BP MAP (mmHg) Pulse Resp SpO2 07/28/24 1631 -- -- 69 18 96 % 07/28/24 1629 (!) 136/57 83 -- -- -- No data found. Objective 07/28/24 0900 07/28/24 1200 07/28/24 1400 General Family/Caregiver Present Yes Yes Yes Others Present Brittany, Pt student Chani Brittany, PT student Chani Brittany, Pt student Chani Time Calculation Start Time 0900 1200 1400 Stop Time 0930 1230 1430 Time Calculation (min) 30 min 30 min 30 min Activity Tolerance Endurance Tolerates 30 min exercise with multiple rests Tolerates 30 min exercise with multiple rests Tolerates 30 min exercise with multiple rests Sitting Balance Sits without support for more than 30 sec Sits without support for more than 30 sec Sits without support for more than 30 sec Early Mobility/Exercise Safety Screen Proceed with mobilization - No exclusion criteria met Proceed with mobilization - No exclusion criteria met Proceed with mobilization - No exclusion criteria met Health Conditions Pain Interference with Therapy Activities Rarely or not at all Rarely or not at all Rarely or not at all Therapeutic Activity Therapeutic Activity Time Entry 30 15 -- Therapeutic Activity 1 Pt required dressing of upper/lower body, bed mobilty, and transfers. Pt required hand over hand assistance with rolling L>R to reach bed railing and assist in roll. Pt requires assistance to trunk on L side transitioning supine to EOB. Pt performed STS with Juancho and LLE block from WC and verbal cues to maintain upright posture. -- Therapeutic Activity 2 Pt performed 4x STS with Juancho at EOB with verbal cues to maintain upright posture and even WB through BLE. -- -- Bed Mobility Bed Mobility Yes -- Yes Bed Mobility 1 Level of Assistance 1 Partial/Mod assistance;Supervision/touching assistance -- Partial/Mod assistance Bed Mobility Comments 1 Pt required hand over hand placement during rolling to reach bed railing. -- Pt required assistance to elevate BLE into bed and verbal cues to adjust trunk posture in supine. Bed Mobility To/From Roll left/right -- Roll lying to right/Return to back Assistive Devices And Adaptive Equipments Bed rail;Head of bed elevated -- Bed rail;Head of bed elevated Bed Mobility 2 Level of Assistance 2 Partial/Mod assistance -- Partial/Mod assistance Bed Mobility Comments 2 Pt required assistance to drape LE off edge of bed and assist at trunk to maintain midline orientation upon upright. -- Pt required assistance to elevate BLE into bed and verbal cues to adjust trunk posture in supine. Bed Mobility To/From Supine to sit on EOB -- Sitting EOB to supine Assistive Devices And Adaptive Equipments Bed rail;Head of bed elevated -- Bed rail;Head of bed elevated Roll Left and Right Assistance Needed -- -- Physical assistance Physical Assistance Level -- -- 26%-50% Comment -- -- Pt required assistance to manage righting of trunk CARE Score - Roll Left and Right -- -- 3 Lying to Sitting on Side of Bed Assistance Needed -- -- Physical assistance Physical Assistance Level -- -- 26%-50% Comment -- -- Pt required assistance to right trunk and push up towards to R side. CARE Score - Lying to Sitting on Side of Bed -- -- 3 Sit to Lying Assistance Needed -- -- Physical assistance Physical Assistance Level -- -- 26%-50% Comment -- -- Pt required physical assistance to manage BLE into bed and right trunk. CARE Score - Sit to Lying -- -- 3 Transfers Transfer Yes Yes Yes Transfer 1 Technique 1 Stand step Via walking Via walking Level of Assistance 1 Partial/Mod assistance Partial/Mod assistance Partial/Mod assistance Trials/Comments 1 Pt required Juancho during STS x4 bouts with verbal cues to maintain upright posture in standing and correct trunk to midline with even WB of BLE. Pt required Juancho during STS with verbal cues to maintain upright posture in standing and correct trunk to midline with even WB of BLE. Pt required Juancho during STS with verbal cues to maintain upright posture in standing and correct trunk to midline with even WB of BLE. Transfer To/From Bed;Jvb-re-Uvpxk/Rspro-ei-Hfp Sfe-gh-Oxsvh/Qeubr-lo-Xxd Wheelchair;Ayf-lq-Pqqwm/Wtpky-gf-Vue Assistive Devices And Adaptive Equipments No device No device No device Transfers 2 Technique 2 Stand step -- Squat pivot Level of Assistance 2 Partial/Mod assistance -- Partial/Mod assistance Trials/Comments 2 Pt was able to complete sit to stand with steps from bed>WC with Juancho and LLE block. Pt required verbal cues to push from mat with RUE upon standing. -- Pt was able complete squat pivot with Juancho and bilateral LE knee block. Transfer To/From Bed;Wheelchair -- Wheelchair;Mat Assistive Devices And Adaptive Equipments No device -- No device Transfers 3 Technique 3 -- -- Squat pivot Level of Assistance 3 -- -- Partial/Mod assistance Trials/Comments 3 -- -- Pt was able to perform squat pivot with Juancho and bilateral knee block. Transfer To/From -- -- Wheelchair;Bed Assistive Devices And Adaptive Equipments -- -- No device Chair/Mvw-lz-Nscza Transfer Assistance Needed -- -- Physical assistance Physical Assistance Level -- -- 25% or less Comment -- -- Juancho squat pivot CARE Score - Chair/Gnt-za-Chfey Transfer -- -- 3 Sit to Stand Assistance Needed -- -- Physical assistance Physical Assistance Level -- -- 25% or less Comment -- -- Pt performed STS with Juancho and LLE knee block and verbal cues to right trunk. Pt presented with L lateral lean upon standing and manual facilitation to correct CARE Score - Sit to Stand -- -- 3 Car Transfer Reason if not Attempted -- -- Environmental limitations CARE Score - Car Transfer -- -- 10 Gait Training Gait Training Time Entry -- 15 -- Gait Training Activity -- Yes -- Gait Training Activity 1 Distance (enter in feet) -- 10 -- Assistive Devices And Adaptive Equipments -- Walker, paris -- Level of Assistance 1 -- Partial/Mod assistance -- Gait Training Activity 1 Comment -- PT don DF strap using derek wrap prior to ambulation to assist LLE clearance upon ambulation. Pt utilized paris-walker placed on R side and PT on L side blocking LLE. Pt required verbal cues to sequence ambulation and assist from Pt gabriel Wilde to place hemiwalker. Pt presented with decreased hip flexion to advance LLE with notable tone. Pt attempted to use bedside table as UE support due to paris-walker height during ambulation, but resumed use of paris-walker for stability. -- Surface And Method -- Indoor;Even surface -- General Gait Deviations -- Narrow base of support;Decreased lorena (anterior/ left trunk lean) -- Walk 10 Feet Assistance Needed -- -- Physical assistance Physical Assistance Level -- -- 26%-50% Comment -- -- Pt completed ambulation today with ModA and paris-walker on R side and LLE block by PT. Pt donned DF derek wrap on LLE to allow LLE clearance during gait training. Pt required increased verbal cues for even WB through BLE. CARE Score - Walk 10 Feet -- -- 3 Walk 50 Feet with Two Turns Reason if not Attempted -- -- Safety concerns CARE Score - Walk 50 Feet with Two Turns -- -- 88 Walk 150 Feet Reason if not Attempted -- -- Safety concerns CARE Score - Walk 150 Feet -- -- 88 Walking 10 Feet on Uneven Surfaces Reason if not Attempted -- -- Safety concerns CARE Score - Walking 10 Feet on Uneven Surfaces -- -- 88 1 Step (Curb) Reason if not Attempted -- -- Safety concerns CARE Score - 1 Step (Curb) -- -- 88 4 Steps Reason if not Attempted -- -- Safety concerns CARE Score - 4 Steps -- -- 88 12 Steps Reason if not Attempted -- -- Safety concerns CARE Score - 12 Steps -- -- 88 Balance/Neuromuscular Re-Education Neuromuscular Re-Education Time Entry -- -- 30 Activity Component(s) 1 -- -- Standing;Sitting;Dynamic Assistive Devices And Adaptive Equipments -- -- Blocks Balance/Neuromuscular Re-Education Activity 1 -- -- Pt placed wooden blocks along mirror during sitting balance activity at edge of mat with LLE knee block and verbal cues to maintain upright posture and lean to R side. PT performed 3x bouts of STS with Juancho and LLE knee block and verbal cues to push through RUE on mat. Pt utilized mirror as external cues and continues to require verbal cues to right trunk to midline and decreased anterior trunk lean. Unable to right self or tolerate statnding for prolonged periods due to subjective back and stomach painr equiring sit and switch of actviity to sitting. Improved upright posture once completed in standing only. Picking Up Object Reason if not Attempted -- -- Safety concerns CARE Score - Picking Up Object -- -- 88 Wheel 50 Feet with Two Turns Assistance Needed -- -- Physical assistance Physical Assistance Level -- -- 51%-75% CARE Score - Wheel 50 Feet with Two Turns -- -- 2 Type of Wheelchair/Scooter -- -- Manual Wheel 150 Feet Assistance Needed -- -- Physical assistance Physical Assistance Level -- -- Total assistance CARE Score - Wheel 150 Feet -- -- 1 Type of Wheelchair/Scooter -- -- Manual Prognosis -- -- Good Barriers to Discharge -- -- Decreased communication;Insight into deficits;Medical diagnosis Evaluation/Treatment Tolerance -- -- Patient tolerated treatment well (pt reported back pain during STS activity) Medical Staff Made Aware -- -- Yes Strengths -- -- Support and attitude of living partners Patient Education: Education Documentation No documentation found. Education Comments No comments found. Goals: Encounter Goals Encounter Goals (Active) Rolling: mod-independent Start: 07/23/24 Expected End: 08/13/24 Lying<>Sitting<>Lying: CGA/supervision with paris technique Start: 07/23/24 Expected End: 08/13/24 Pt will participate in pre-gait activities emphasizing B LE activation, proper sequencing, midline orientation, reciprocal movements, and controlled WS to facilitate safe gait training. Start: 07/23/24 Expected End: 08/13/24 Within 2 weeks of starting therapy, the patient and/or family/caregiver will demonstrate independence and be compliant in a written HEP in order to maximize gains made during therapy. Start: 07/23/24 Expected End: 08/13/24 Pt and/or caregiver(s) will have all appropriate DME, recommendations, or completed prescriptions to maximize pt's safety and independence at discharge. Start: 07/23/24 Expected End: 08/13/24 Transfers: Juancho stand step with LRAD Start: 07/23/24 Expected End: 08/13/24 Sit to Stand: CGA with LRAD Start: 07/23/24 Expected End: 08/13/24 Pt will be able to sit for at least 5 mins with support of no UE with midline orientation, erect posture, even KATY, appropriate WBing and ability to reach > 5" outside KATY without LOB to facilitate improved standing to return to functional tasks. Start: 07/23/24 Expected End: 08/13/24 Patient able to propel WC ~300ft supervision with B LE propulsion with appropriate safety awareness, midline orientation, and obstacle avoidance to facilitate safe community mobility. Start: 07/23/24 Expected End: 08/13/24 Ange Soler PT CAL RECEPTIONIST * Federico Cazares MD - 07/27/2024 4:30 PM MEDICAL RECEPTIONIST Physical Medicine & Rehabilitation Daily Progress Note Code status: Full Code Current diet: NPO Diet Isolation: No active isolations Allergies: Patient has no known allergies. Subjective: No events report last night by nursing. Patient unable to provide review of systems but awakens to indicate no issues No concerns voiced by at the bedside Objective: Sleep hours logged Last Bowel Movement: Last BM Date: 07/27/24 Stool Color: Brown Stool Appearance: Loose Stool Amount: Medium Labs Lab Results Component Value Date WBC 5.26 07/26/2024 Hgb 10.9 07/26/2024 Hct 34.7 07/26/2024 Plt Count 345 07/26/2024 Cholesterol 158 07/15/2024 Triglycerides 99 07/15/2024 HDL Cholesterol 38.0 07/15/2024 ALT 18 07/26/2024 AST 26 07/26/2024 Sodium Lvl 142 07/26/2024 Potassium Lvl 4.3 07/26/2024 Chloride Lvl 106 07/26/2024 Creatinine Lvl 0.51 (L) 07/26/2024 BUN 13 07/26/2024 CO2 Lvl 24.6 07/26/2024 INR 1.02 07/15/2024 Hgb A1C 5.51 07/15/2024 VitalsVitals: 07/27/24 0637 07/27/24 1524 07/27/24 1525 07/27/24 152 BP: 136/61 Pulse: 60 74 Resp: 18 Temp: 37.1 ?C (98.8 ?F) SpO2: 97% 100% 24 Hr Tmax: Temp (24hrs), Av.2 ?C (98.9 ?F), Min:37.1 ?C (98.8 ?F),Max:37.2 ?C (99 ?F) Latest Weight: 73.4 kg (161 lb 13.1 oz) Intake & Output Intake/Output Summary (Last 24 hours) at 07/27/2024 1630Last data filed at 07/27/2024 0800 Gross per 24 hour Intake 250 ml Output -- Net 250 ml I/O last 3 completed shifts:In: - (0 mL/kg) Out: 251 (3.4 mL/kg) [Urine:251 (0.1 mL/kg/hr)] Weight: 73.4 kg I/O this shift: In: 250 [P.O.:250] Out: - Medicationsaspirin, 81 mg, Per G Tube, Daily atorvastatin, 80 mg, Nasogastric, Nightly Docusate Sodium, 100 mg, Per G Tube, BID Enteral Free water Flush, 60 mL, Per PEG Tube, q4h Fibersource HN, 375 mL, Per PEG Tube, 4x daily heparin, 5,000 Units, Subcutaneous, q8h senna, 10 mL, Per G Tube, Nightly PRN medications: acetaminophen, bisacodyl, dextrose, glucagon, melatonin, sodium chloride Physical Exam:General: Sleeping but awakens briefly HEENT: moist mucous membranes CV: no peripheral cyanosis Pulm: normal respiratory effort GI: non-distended abdomen Derm: no rashes or ulcers in areas examed Psych: calm, cooperative DIAGNOSES & PROBLEMSPrincipal Problem: CVA (cerebrovascular accident due to intracerebral hemorrhage) ([facility]) Active Problems: Primary hypertension Hyperlipidemia Dysarthria Dysphagia Hemiplegia (CMS/HCC) ([facility]) Plan:Intracerebral hemorrhage Stable neurologic status; aggressive blood pressure control DyslipidemiaContinued on atorvastatin Right hemiplegiaOngoing work on neuromuscular education DysphagiaContinue with n.p.o. status; ongoing dysphagia therapy with speech-language pathology [id number]CEPTION[facility] * Rose Lang PharmD - 07/27/2024 3:25 PM MEDICAL RECEPTIONIST [facility] Admission Medications N2001. Drug Regimen Review | N2003. Medication Follow-up Did a complete drug regimen review identify potential clinically significant medication issues? No - No issues found during review. Rose Lang PharmD CAL RECEPTIONIST * Sheree Jasmine OT - 07/27/2024 10:30 AM MEDICAL RECEPTIONIST Occupational Therapy Treatment Session Note Patient Name: Toney Martel Today's Date: 07/27/2024 Preferred Language: Guamanian Assessment & Plan Assessment: OT Assessment Results: Impaired ADL status, Impaired left upper extremity, Impaired fine motor control, Impaired gross motor control, Impaired functional mobility, Impaired upper extremity strength, Impaired upper extremity range of motion, Impaired cognition, Impaired safe judgment during ADL, Communication impairment OT Assessment: Patient tolerated therapy fairly well however acute onset of pain in peg tube distrupted fully participating in exercises which were kept at seated level due to time constraints and notifying RN to assess peg tube site for possible redness and irritation. At this time, patient's nonfunctional LUE and L side neglect/lack of awareness continue to be major barriers to functional performance in self-care and patient yet to carryover and implement paris dressing techniques. However, she is cooperative and overall understands directions and explanation of treatment and has potential to continue improving LOF, however continuing to monitor progress and may anticipate SNF discharge if not progressing or unable to perform transfers as caregiver. Plan: OT Planned Treatments: Activities of Daily Living, Neuromuscular reeducation, Balance training, Coordination, Equipment training, Joint protection, Home program, Orthotic, Patient education, Safety education, Seating/Positioning, Therapeutic activities, Therapeutic exercises, Splinting, Caregiver training, Work simplification, Energy conservation training Subjective "My left arm is too heavy." Objective 07/27/24 1030 General Others Present Time Calculation Start Time 1030 Stop Time 1100 Time Calculation (min) 30 min Pain Assessment Pain Assessment 0-10 Pain Score 9 Pain Type Surgical pain;Acute pain Pain Location (Peg tube site) Pain Descriptors Burning;Discomfort;Itching Pain Interventions (RN notified to assess peg tube site) Cognitive-Linguistic Functioning Behavior/Cognition Cooperative Following Commands Follows 1 step commands with increased time Awareness of Deficits Decreased awareness of deficits Therapeutic Procedures Time Entry Neuromuscular Re-Education Time Entry 30 Balance/Neuromuscular Re-Education Balance/Neuromuscular Re-Education Activity 1 Trialing corporate staff accountant and pinch strength activities including different levels of resistance and size i.e. resistive clip, tongs, hand gripper. Patient unable to fully open red resistive clip with R hand and OT explained that strengthening was in preparation to use RUE to compensate and assist LUE with tasks and positioning Position 1 Seated Balance/Neuromuscular Re-Education Activity 2 PROM of RUE and demonstration of self PROM, however patient stated LUE too heavy and that RUE weak Position 2 Seated Balance/Neuromuscular Re-Education Activity 3 Reinforcement of splint wearing schedule Position 3 Seated Patient Education: Education Documentation No documentation found. Education Comments No comments found. Goals: Encounter Goals Encounter Goals (Active) Patient will perform upper body dressing with wheelchair level with mod assist to improve independence with dressing. Start: 07/24/24 Expected End: 08/20/24 Patient will perform lower body dressing with analytics manager at wheelchair level with mod assist to improve independence with dressing. Start: 07/24/24 Expected End: 08/20/24 Within 2 weeks of starting therapy, the patient and/or family/caregiver will demonstrate independence and be compliant in a written HEP in order to maximize gains made during therapy. Start: 07/24/24 Expected End: 08/20/24 Pt and/or caregiver(s) will have all appropriate DME, recommendations, or completed prescriptions to maximize pt's safety and independence at discharge. Start: 07/24/24 Expected End: 08/20/24 Patient and/or caregivers will verbalize understanding of home program including safety tips, equipment instructions, and home exercises. Start: 07/24/24 Expected End: 08/20/24 Patient will participate in forced use activities using the affected upper extremity with min assistance to inhibit abnormal movement patterns. Start: 07/24/24 Expected End: 08/20/24 Patient will tolerate weight bearing through their effected upper extremity for 25-30 minutes with min assist. Start: 07/24/24 Expected End: 08/20/24 Sheree Jasmine, OT CAL RECEPTIONIST * Isa Howard CCC-JAVA SDET - 07/27/2024 9:30 AM MEDICAL RECEPTIONIST Speech-Language Pathology Treatment Note Patient Name: Toney Martel Today's Date: 07/27/2024 Preferred Language: Guamanian Assessment & Plan Assessment: Plan: Treatment Plan/Goals Established with Patient/Caregiver: Yes Treatment/Interventions: Cognitive communication functioning, Executive functioning, Swallow function, Oral motor exercises, Pharyngeal exercises, Patient/family education, Communication functioning JAVA SDET Plan: Skilled JAVA SDET Frequency: 5-7 days per week Duration: 4 weeks NPO: Yes Medications: Non oral Rehabilitation Exercises for Dysphagia Management: Effortful swallow, VERONICA (Effortful, intensive jaw opening exercise), Shaker and/or modified Shaker maneuver Subjective Current Problem:ICH CVA Pain:Constant pain near PEG site Post-Therapy Intervention Pain Assessment: Objective Vital Signs:Patient Vitals for the past 24 hrs: BP MAP (mmHg) Pulse Resp SpO2 07/28/24 1631 -- -- 69 18 96 % 07/28/24 1629 (!) 136/57 83 -- -- -- 07/28/24 0617 -- -- 66 18 98 % 07/28/24 0617 (!) 170/71 (!) 104 -- -- -- 07/27/242041 -- -- 68 16 96 % 07/27/242040 (!) 127/59 82 -- -- -- Last Visit:07/26/2024 General Visit Info:Patient seen across two sessions: 0930 and 1100. See flowsheets below for detailed information. Treatment: 07/27/24 0930Time Calculation Start Time 0930 Stop Time 1000 Time Calculation (min) 30 min JAVA SDET Last Visit Most Recent JAVA SDET Session 07/26/24 Pain Assessment Pain Assessment DVPRS Pain Score 0 Pain Rating Scale (DVPRS) 0 Swallow Swallow Treatment Time 30 Swallow Activities Oral and pharyngeal exercises Swallow Comments Pt participated in pharyngeal-based rehabilitation exercises focusing on pharyngeal constriction given results from recent FEES (effortful swallows x20 with saliva + ice chips, CTAR x15, VERONICA x10) JAVA SDET Assessment Session Tolerance Patient tolerated session well 07/27/24 1100Time Calculation Start Time 1100 Stop Time 1130 Time Calculation (min) 30 min JAVA SDET Last Visit Most Recent JAVA SDET Session 07/26/24 General Family/Caregiver Present Yes Pain Assessment Pain Assessment 0-10 Pain Score 5 Pain Rating Scale (DVPRS) 5 Swallow Swallow Treatment Time 15 Swallow Activities PO trials and oral care Swallow Comments Thin liquids via half spoon paired with effortful swallows x10. Anterior spillage and swallow delay observed. Speech/Voice Speech Treatment Time 15 Speech Activities Labial and lingual exercises to increase speech production JAVA SDET Assessment Session Tolerance Patient tolerated session well Comments: FIM Scores: Comprehension:Comprehends Complex or Abstract Information Without Prompting or Cueing: Yes Mode of Comprehension: Auditory Understands Complex or Abstract Directions and Conversations: Requires extra time Functional Cosby Measure Comprehension: Modified independence - 6 Expression:Expresses Complex or Abstract Information Without Prompting or Cueing: No Expression Mode: Vocal Expresses Basic Daily Needs and Ideas: Patient expresses basic daily needs and ideas more than 90% of the time requires prompting less than 10% of the time to be understood Functional Cosby Measure Expression: Standby prompting - 5 Social Interaction:Interacts Appropriately Without Supervision: Yes Interacts Appropriately: Requires more than reasonable time to make decisions Functional Cosby Measure Social Interaction: Modified independence - 6 Problem Solving:Solves Complex Problems: No Solves Routine Problems: Patient requires supervision to solve routine problems only under stressful or unfamiliar conditions, but no more than 10% of the time Functional Cosby Measure Problem Solving: Standby prompting - 5 Memory:Recognizes, Remembers Routines, and Executes Requests Without Prompting: No Remembers and Executes Requests With Prompting: Patient requires prompting only under stressful or unfamiliar conditions, but no more than 10% of the time Functional Cosby Measure Memory: Standby prompting - 5 Outcome Measures:FIMS/IDDSI Patient Education:Education Documentation No documentation found. Education Comments No comments found. Goals:Encounter Goals Encounter Goals (Active) STG - Patient will use speech intelligibility Intervention at conversational level (Progressing) Start: 07/24/24 Expected End: 08/21/24 LTG - Demonstrate reasoning (Progressing) Start: 07/24/24 Expected End: 08/21/24 LTG - Demonstrate visual scanning during a reading task (Progressing) Start: 07/24/24 Expected End: 08/21/24 LTG - Provides multi-step/complex solutions (Progressing) Start: 07/24/24 Expected End: 08/21/24 STG - Complete a 15-30 minute complex attention task (Progressing) Start: 07/24/24 Expected End: 08/21/24 STG - Demonstrate alternating attention by being able to shift the focus of attention between tasks/activities/ideas (Progressing) Start: 07/24/24 Expected End: 08/21/24 STG - Engage in deductive reasoning (Progressing) Start: 07/24/24 Expected End: 08/21/24 STG - Identify appropriate solutions to a problem (Progressing) Start: 07/24/24 Expected End: 08/21/24 STG - Identify cognitive/physical strengths and limitations (Progressing) Start: 07/24/24 Expected End: 08/21/24 LTG - Patient will improve on swallowing outcome measure (Progressing) Start: 07/24/24 Expected End: 08/21/24 STG - Improve airway protection (Progressing) Start: 07/24/24 Expected End: 08/21/24 STG - Improve bolus control (Progressing) Start: 07/24/24 Expected End: 08/21/24 STG - Increase the amount of food/liquid given by mouth while decreasing amount given by tube Start: 07/24/24 Expected End: 08/21/24 STG - Participate in an instrumental swallow study Start: 07/24/24 Expected End: 08/21/24 XIN SandovalSLP CAL RECEPTIONIST CAL RECEPTIONIST * Ange Soler, PT - 07/27/2024 8:00 AM MEDICAL RECEPTIONIST Treatment Session Note Patient Name: Toney Martel Today's Date: 07/27/2024 Preferred Language: Guamanian Assessment & Plan Assessment: PT Assessment: (P) Limited in time this session due to assisting patient in dressing and trasnfers to the WC. Focused on attending to L visual field and noted continued neglect or visual deficit complicating ability to use the L side of body. Most difficulty matinaining sitting baalnce with trasnition form lying<>sitting or dual tasking with upright task but with proper cuing able to maintain balance and improved short term attention. Will contineu to focus on upright posture, return to ambualtion and standing balance task for L EL input as well as more formal vision assessment in upcoming session. Plan: Treatment Plan/Goals Established with Patient/Caregiver: Yes PT Frequency: 5-7 times per week PT Discharge Recommendations: Inpatient rehab facility placement Equipment Recommended: DME wheelchair PT Planned Treatment: Balance training, Basic activities of daily living, Bed mobility training, Body weight support treadmill training, Caregiver training, Equipment training, Gait training, Group therapy, Manual therapy, Neuromuscular reeducation, Orthotic training, Patient education, Positioning, Posture/Body mechanics training, Seating, Stair training, Therapeutic activities, Therapeutic exercises, Transfer training, Wheelchair assessment and management Duration: 3-4 weeks Subjective Pain: Pain Assessment Pain Score: 0 (07/27/2024 0800) Pain Rating Scale (DVPRS): No pain (07/27/2024 0800) Vital Signs: Patient Vitals for the past 12 hrs: BP MAP (mmHg) Pulse Resp SpO2 07/27/24 1525 -- -- 74 -- 100 % 07/27/24 1524 136/61 86 -- -- -- 07/27/24 0637 -- -- 60 18 97 % 07/27/24 0636 (!) 148/54 85 -- -- -- No data found. Objective 07/27/24 0800 General Others Present PT Student Chani, Brittany Time Calculation Start Time 0800 Stop Time 0900 Time Calculation (min) 60 min Pain Assessment Pain Assessment DVPRS Pain Score 0 Pain Rating Scale (DVPRS) 0 Therapeutic Activity Therapeutic Activity Time Entry 30 Therapeutic Activity 1 dressing, re-diapering patient and bed mobility and transfers. Patient required increased hand over hand assistance to complete rolling to help place hands bilaterally to reach all the way to bed rail and assist to roll. Patient requires increased assistance to right trunk on transition to EOB as well and max ceus for safety to sit with even WBing on B LE. Bed Mobility 1 Level of Assistance 1 Partial/Mod assistance Bed Mobility To/From Roll left/right Assistive Devices And Adaptive Equipments Bed rail;Head of bed elevated Bed Mobility 2 Level of Assistance 2 Partial/Mod assistance Bed Mobility Comments 2 asissatnce to drape LE off bed and right trunk support as well Bed Mobility To/From Supine to sit on EOB Assistive Devices And Adaptive Equipments Bed rail;Head of bed elevated Roll Left and Right Assistance Needed Physical assistance Physical Assistance Level 26%-50% Comment assistance to manage righting of trunk CARE Score - Roll Left and Right 3 Lying to Sitting on Side of Bed Assistance Needed Physical assistance Physical Assistance Level 26%-50% CARE Score - Lying to Sitting on Side of Bed 3 Sit to Lying Assistance Needed Physical assistance Physical Assistance Level 26%-50% CARE Score - Sit to Lying 3 Transfer 1 Technique 1 Squat pivot Level of Assistance 1 Partial/Mod assistance Trials/Comments 1 Juancho cuing for hand placmeent and forward lean Transfer To/From Bed;Wheelchair Transfers 2 Technique 2 Squat pivot Level of Assistance 2 Partial/Mod assistance Transfer To/From Wheelchair;Mat Chair/Qnd-ng-Pccur Transfer Assistance Needed Physical assistance Physical Assistance Level 25% or less Comment Juancho squat pivot CARE Score - Chair/[id number] Transfer 3 Sit to Stand Assistance Needed Physical assistance Physical Assistance Level 25% or less Comment not completed today but completed in past CARE Score - Sit to Stand 3 Car Transfer Reason if not Attempted Environmental limitations CARE Score - Car Transfer 10 Walk 10 Feet Assistance Needed Physical assistance Physical Assistance Level 26%-50% Comment not completed today but compelted in past using paris walker CARE Score - Walk 10 Feet 3 Walk 50 Feet with Two Turns Assistance Needed Physical assistance Physical Assistance Level 26%-50% Comment not completed today but completed in the past CARE Score - Walk 50 Feet with Two Turns 3 Walk 150 Feet Reason if not Attempted Safety concerns CARE Score - Walk 150 Feet 88 Walking 10 Feet on Uneven Surfaces Reason if not Attempted Safety concerns CARE Score - Walking 10 Feet on Uneven Surfaces 88 1 Step (Curb) Reason if not Attempted Safety concerns CARE Score - 1 Step (Curb) 88 4 Steps Reason if not Attempted Safety concerns CARE Score - 4 Steps 88 Balance/Neuromuscular Re-Education Neuromuscular Re-Education Time Entry 30 Balance/Neuromuscular Re-Education Activity 1 sittgin EOB to pus on shirt; patietn asked to amnage balance while putting on shirt and able to maintain balance except when too focused on shirt and LOB noted to L with PT assist required to recover. Consistent cuing to manage balance and inferior intput to distal femur to maitnian L foot on floor to allow ofr proprioception also succssful in managing balance Balance/Neuromuscular Re-Education Activity 2 seated edge of mat putting blocks on mirror from R to L. Increased cues to atttend to L visual feild and ear LOB multiple times when movement is too squick. Increased use fo head turning to address L side and when seqarching for items on L required PT cuing to fully turn to visualize L sided blocks. 3 sets of 8 blocks completed. Wheel 50 Feet with Two Turns Assistance Needed Physical assistance Physical Assistance Level 51%-75% CARE Score - Wheel 50 Feet with Two Turns 2 Type of Wheelchair/Scooter Manual Wheel 150 Feet Assistance Needed Physical assistance Physical Assistance Level Total assistance CARE Score - Wheel 150 Feet 1 Type of Wheelchair/Scooter Manual Patient Education: Education Documentation No documentation found. Education Comments No comments found. Goals: Encounter Goals Encounter Goals (Active) Rolling: mod-independent Start: 07/23/24 Expected End: 08/13/24 Lying<>Sitting<>Lying: CGA/supervision with paris technique Start: 07/23/24 Expected End: 08/13/24 Pt will participate in pre-gait activities emphasizing B LE activation, proper sequencing, midline orientation, reciprocal movements, and controlled WS to facilitate safe gait training. Start: 07/23/24 Expected End: 08/13/24 Within 2 weeks of starting therapy, the patient and/or family/caregiver will demonstrate independence and be compliant in a written HEP in order to maximize gains made during therapy. Start: 07/23/24 Expected End: 08/13/24 Pt and/or caregiver(s) will have all appropriate DME, recommendations, or completed prescriptions to maximize pt's safety and independence at discharge. Start: 07/23/24 Expected End: 08/13/24 Transfers: Juancho stand step with LRAD Start: 07/23/24 Expected End: 08/13/24 Sit to Stand: CGA with LRAD Start: 07/23/24 Expected End: 08/13/24 Pt will be able to sit for at least 5 mins with support of no UE with midline orientation, erect posture, even KATY, appropriate WBing and ability to reach > 5" outside KATY without LOB to facilitate improved standing to return to functional tasks. Start: 07/23/24 Expected End: 08/13/24 Patient able to propel WC ~300ft supervision with B LE propulsion with appropriate safety awareness, midline orientation, and obstacle avoidance to facilitate safe community mobility. Start: 07/23/24 Expected End: 08/13/24 Ange Soler PT CAL RECEPTIONIST * Sheree Jasmine, OT - 07/26/2024 2:00 PM MEDICAL RECEPTIONIST Occupational Therapy Treatment Session Note Patient Name: Toney Martel Today's Date: 07/26/2024 Preferred Language: Guamanian Assessment & Plan Assessment: OT Assessment Results: Impaired ADL status, Impaired left upper extremity, Impaired upper extremity range of motion, Impaired upper extremity strength, Impaired trunk control for functional activities, Impaired endurance, Impaired cognition, Impaired fine motor control, Impaired functional mobility, Impaired gross motor control OT Assessment: Patient currently requires Max A for LB ADLs but can participate in some UB self-care including dressing with extensive verbal and tactile cueing, though can also be Mod-Max A due to limited response to education and demonstration of paris technique. Major barriers at this time include nonfunctional LUE, significant L side inattention with tendency for L lateral lean when sitting unsupported, decreased functional mobility, and decreased communication. Will continue NMR with patient in upcoming sessions while educating on plan of care and reinforcing splint wear schedule, emphasis on sitting balance and paris techniques for ADLs. Strengths: Support and attitude of living partners Barriers to Discharge: Insight into deficits, Decreased communication, Medical diagnosis Plan: OT Planned Treatments: Activities of Daily Living, Neuromuscular reeducation, Balance training, Coordination, Equipment training, Joint protection, Home program, Orthotic, Patient education, Safety education, Seating/Positioning, Therapeutic activities, Therapeutic exercises, Splinting, Caregiver training, Work simplification, Energy conservation training Subjective Patient agreeable to therapy, responds with yes/no but able to indicate urge to use bathroom. Objective 07/26/24 1400 General Others Present Time Calculation Start Time 1400 Stop Time 1500 Time Calculation (min) 60 min Pain Assessment Pain Assessment 0-10 Pain Score 0 ADL Self Care/Home Management (ADLs) Time Entry 35 Toileting Activity Component(s) Managing clothing before;Managing clothing after;Perineal hygiene, front;Perineal hygiene, back Level of Assistance Substantial/Max assistance Comment Patient voided seated on drop arm BSC frame over toilet with Max A; OT stabilized LLE and arm to prevent L lateral lean. Partial STS with Mod A while OT assisted clearing pants past hips Toileting Position/Set Up Drop-arm commode, non-padded Toileting Hygiene Assistance Needed Physical assistance Physical Assistance Level 76% or more CARE Score - Toileting Hygiene 2 Toilet Transfers Toilet Transfer To/From Wheelchair Transfer Type Stand pivot Level of Assistance Substantial/Max assistance Assistive Devices And Adaptive Equipments Drop arm commode Toilet Transfers Comments Max A stand pivot to L side to heavy duty drop arm BSC frame over toilet with OT blocking LLE and extensive verbal and tactile cueing for placement of RUE Toilet Transfer Assistance Needed Physical assistance Physical Assistance Level 26%-50% CARE Score - Toilet Transfer 3 Transfer 1 Level of Assistance 1 Partial/Mod assistance Trials/Comments 1 Mod A with OT stabilizing LLE for partial stand to manage LB clothing Transfer To/From [id number] Assistive Devices And Adaptive Equipments No device Therapeutic Procedures Time Entry Neuromuscular Re-Education Time Entry 25 Balance/Neuromuscular Re-Education Balance/Neuromuscular Re-Education Activity 1 PROM with LUE strapped to arm skate and gliding over table in horizontal ab/adduction and patient assisting with self PROM with additional verbal and tactile cueing Position 1 Seated Balance/Neuromuscular Re-Education Activity 2 Demonstration of self PROM on wrist and digits; limited response to cueing and delayed initiation Position 2 Seated Patient Education: Education Documentation No documentation found. Education Comments No comments found. Goals: Encounter Goals Encounter Goals (Active) Patient will perform upper body dressing with wheelchair level with mod assist to improve independence with dressing. Start: 07/24/24 Expected End: 08/20/24 Patient will perform lower body dressing with analytics manager at wheelchair level with mod assist to improve independence with dressing. Start: 07/24/24 Expected End: 08/20/24 Within 2 weeks of starting therapy, the patient and/or family/caregiver will demonstrate independence and be compliant in a written HEP in order to maximize gains made during therapy. Start: 07/24/24 Expected End: 08/20/24 Pt and/or caregiver(s) will have all appropriate DME, recommendations, or completed prescriptions to maximize pt's safety and independence at discharge. Start: 07/24/24 Expected End: 08/20/24 Patient and/or caregivers will verbalize understanding of home program including safety tips, equipment instructions, and home exercises. Start: 07/24/24 Expected End: 08/20/24 Patient will participate in forced use activities using the affected upper extremity with min assistance to inhibit abnormal movement patterns. Start: 07/24/24 Expected End: 08/20/24 Patient will tolerate weight bearing through their effected upper extremity for 25-30 minutes with min assist. Start: 07/24/24 Expected End: 08/20/24 Sheree Jasmine, OT CAL RECEPTIONIST * Isa Howard CCC-JAVA SDET - 07/26/2024 1:00 PM MEDICAL RECEPTIONIST Speech-Language Pathology Treatment Note Patient Name: Toney Martel Today's Date: 07/26/2024 Preferred Language: Guamanian Assessment & Plan Assessment: Session Tolerance: Patient tolerated session well Plan: Treatment Plan/Goals Established with Patient/Caregiver: Yes Treatment/Interventions: Cognitive communication functioning, Executive functioning, Swallow function, Oral motor exercises, Pharyngeal exercises, Patient/family education, Communication functioning JAVA SDET Plan: Skilled JAVA SDET Frequency: 5-7 days per week Duration: 4 weeks NPO: Yes Medications: Non oral Rehabilitation Exercises for Dysphagia Management: Effortful swallow, VERONICA (Effortful, intensive jaw opening exercise), Shaker and/or modified Shaker maneuver Subjective 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 Pain: Pain Assessment Pain Assessment: DVPRS (07/26/2024 580) Pain Score: 0 (07/26/20241544) Pain Rating Scale (DVPRS): No pain (07/26/2024 1545) Post-Therapy Intervention Pain Assessment: Objective Vital Signs: Patient Vitals for the past 24 hrs: BP MAP (mmHg) Pulse Resp SpO2 07/26/24 1542 -- -- 68 16 98 % 07/26/24 1542 149/61 90 -- -- -- 07/26/24 0651 -- -- 59 18 97 % 07/26/24 0650 (!) 135/52 80 -- -- -- 07/25/24 2113 (!) 132/56 81 -- -- -- 07/25/24 1931 -- -- 65 18 96 % 07/25/24 1930 (!) 148/58 88 -- -- -- Last Visit: Most Recent JAVA SDET Session: 07/25/24 General Visit Info: Family/Caregiver Present: Yes Others Present: Treatment:Swallow: Swallow Treatment Time: 30 Swallow Activities: pharyngeal-based rehabilitation exercises Swallow Comments: Pt seen for skilled JAVA SDET services focusing on dysphagia management. Pt participated in pharyngeal-based rehabilitation exercises focusing on pharyngeal constriction given results from recent FEES (effortful swallows x20 with saliva + ice chips, CTAR x15, VERONICA x10). Pt tolerated session well. Also provided ongoing education regarding dysphagia and safety precautions. Speech/Voice:Speech Treatment Time: 30 Speech Activities: Labial/Lingual Exercises Speech Comments: Dysarthria and its characteristics discussed. Patient with limited ROM impacting speech production and swallowing. Comments: FIM Scores: Comprehension:Comprehends Complex or Abstract Information Without Prompting or Cueing: Yes Mode of Comprehension: Auditory Understands Complex or Abstract Directions and Conversations: Requires extra time Functional Cosby Measure Comprehension: Modified independence - 6 Expression:Expresses Complex or Abstract Information Without Prompting or Cueing: No Expression Mode: Vocal Expresses Basic Daily Needs and Ideas: Patient expresses basic daily needs and ideas more than 90% of the time requires prompting less than 10% of the time to be understood Functional Cosby Measure Expression: Standby prompting - 5 Social Interaction:Interacts Appropriately Without Supervision: Yes Interacts Appropriately: Requires more than reasonable time to make decisions Functional Cosby Measure Social Interaction: Modified independence - 6 Problem Solving:Solves Complex Problems: No Solves Routine Problems: Patient requires supervision to solve routine problems only under stressful or unfamiliar conditions, but no more than 10% of the time Functional Cosby Measure Problem Solving: Standby prompting - 5 Memory:Recognizes, Remembers Routines, and Executes Requests Without Prompting: No Remembers and Executes Requests With Prompting: Patient requires prompting only under stressful or unfamiliar conditions, but no more than 10% of the time Functional Cosby Measure Memory: Standby prompting - 5 Outcome Measures:FIMS IDDSI Patient Education:Education Documentation No documentation found. Education Comments No comments found. Goals:Encounter Goals Encounter Goals (Active) STG - Patient will use speech intelligibility Intervention at conversational level Start: 07/24/24 Expected End: 08/21/24 LTG - Demonstrate reasoning Start: 07/24/24 Expected End: 08/21/24 LTG - Demonstrate visual scanning during a reading task Start: 07/24/24 Expected End: 08/21/24 LTG - Provides multi-step/complex solutions Start: 07/24/24 Expected End: 08/21/24 STG - Complete a 15-30 minute complex attention task Start: 07/24/24 Expected End: 08/21/24 STG - Demonstrate alternating attention by being able to shift the focus of attention between tasks/activities/ideas Start: 07/24/24 Expected End: 08/21/24 STG - Engage in deductive reasoning Start: 07/24/24 Expected End: 08/21/24 STG - Identify appropriate solutions to a problem Start: 07/24/24 Expected End: 08/21/24 STG - Identify cognitive/physical strengths and limitations Start: 07/24/24 Expected End: 08/21/24 LTG - Patient will improve on swallowing outcome measure Start: 07/24/24 Expected End: 08/21/24 STG - Improve airway protection Start: 07/24/24 Expected End: 08/21/24 STG - Improve bolus control Start: 07/24/24 Expected End: 08/21/24 STG - Increase the amount of food/liquid given by mouth while decreasing amount given by tube Start: 07/24/24 Expected End: 08/21/24 STG - Participate in an instrumental swallow study Start: 07/24/24 Expected End: 08/21/24 XIN SandovalSLP CAL RECEPTIONIST * Michael Lopez PTA - 07/26/2024 11:00 AM MEDICAL RECEPTIONIST Physical Therapy Treatment Session Note Patient Name: Toney Martel Today's Date: 07/26/2024 Preferred Language: Guamanian Assessment & Plan Assessment: PT Assessment: Pt was able to tolerate therapy session well. Pt was able to ambualte for longer distance of 50 ft with less cueing needed for spacing of feet and veering but reminders needed for keeping head up and AD use. Pt was also able to work on stadning balance with emphasis on WB through LE and also attending to L side. Pt is willing to work hard in therapy and has good family support. Prognosis: Good Barriers to Discharge: Insight into deficits, Medical diagnosis Evaluation/Treatment Tolerance: Patient tolerated treatment well Medical Staff Made Aware: Yes Strengths: Attitude of self, Support and attitude of living partners, Support of extended family/friends Plan: Treatment Plan/Goals Established with Patient/Caregiver: Yes PT Frequency: 5-7 times per week PT Discharge Recommendations: Inpatient rehab facility placement Equipment Recommended: DME wheelchair PT Planned Treatment: Balance training, Basic activities of daily living, Bed mobility training, Body weight support treadmill training, Caregiver training, Equipment training, Gait training, Group therapy, Manual therapy, Neuromuscular reeducation, Orthotic training, Patient education, Positioning, Posture/Body mechanics training, Seating, Stair training, Therapeutic activities, Therapeutic exercises, Transfer training, Wheelchair assessment and management Duration: 3-4 weeks Subjective Pt was semi-bales in bed when therapist arrived and pt was agreeable to therapy. At the end of session pt was left seated in w/c with maura belt donned and coming back to room. Pain: Pain Assessment Pain Assessment: DVPRS (07/26/20241099) Pain Score: 0 (07/26/20241099) Pain Rating Scale (DVPRS): No pain (07/26/20241099) Vital Signs: Patient Vitals for the past 12 hrs: BP MAP (mmHg) Pulse Resp SpO2 07/26/24 1542 -- -- 68 16 98 % 07/26/24 1542 149/61 90 -- -- -- 07/26/24 0651 -- -- 59 18 97 % 07/26/24 0650 (!) 135/52 80 -- -- -- No data found. Objective 07/26/24 1100 PT Last Visit PT Received On 07/26/24 Response to Previous Treatment Patient with no complaints from previous session. General Family/Caregiver Present Yes Others Present Time Calculation Start Time 1100 Stop Time 1215 Time Calculation (min) 75 min Activity Tolerance Endurance Tolerates 30 min exercise with multiple rests Sitting Balance Sits without support for more than 30 sec Early Mobility/Exercise Safety Screen Proceed with mobilization - No exclusion criteria met Pain Assessment Pain Assessment DVPRS Pain Score 0 Pain Rating Scale (DVPRS) 0 Health Conditions Pain Interference with Therapy Activities Rarely or not at all Therapeutic Activity Therapeutic Activity Time Entry 30 Therapeutic Activity 1 Performed bed mobility, donning of shoes and socks with total A and then transfers from bed to w/c and to mat Therapeutic Activity 2 Completed toileting with therapist assisting with transfer over to the commode and then PCT coming to assist with cleaning Bed Mobility Bed Mobility Yes Bed Mobility 1 Level of Assistance 1 Partial/Mod assistance Bed Mobility Comments 1 Pt needed Mod A to bring down LE off the bed and then cueing form therapist adn faciltiating at the shoulders to get pt upright with cueing needed to push up to sit Bed Mobility To/From Supine to sit on EOB Assistive Devices And Adaptive Equipments Bed rail Roll Left and Right Assistance Needed Physical assistance Physical Assistance Level 26%-50% CARE Score - Roll Left and Right 3 Lying to Sitting on Side of Bed Assistance Needed Physical assistance Physical Assistance Level 26%-50% CARE Score - Lying to Sitting on Side of Bed 3 Sit to Lying Assistance Needed Physical assistance Physical Assistance Level 26%-50% CARE Score - Sit to Lying 3 Transfers Transfer Yes Transfer 1 Technique 1 Squat pivot Level of Assistance 1 Partial/Mod assistance Trials/Comments 1 Pt needed Mod A to trasnfer initally in session due to diffculty understanding technique and therapist cue, but with further practice pt was able to reach for arm rest and then swing hips over to the chair Transfer To/From Bed;Wheelchair Assistive Devices And Adaptive Equipments No device Transfers 2 Technique 2 Squat pivot Level of Assistance 2 Partial/Mod assistance Transfer To/From Wheelchair;Mat Chair/Zti-ao-Vioqu Transfer Assistance Needed Physical assistance Physical Assistance Level 25% or less CARE Score - Chair/Dsy-vl-Nwvvr Transfer 3 Sit to Stand Assistance Needed Physical assistance Physical Assistance Level 25% or less CARE Score - Sit to Stand 3 Car Transfer Reason if not Attempted Environmental limitations CARE Score - Car Transfer 10 Toilet Transfers Toilet Transfer To/From Wheelchair;Toilet Transfer Type Squat pivot Level of Assistance Partial/Mod assistance Assistive Devices And Adaptive Equipments No device Toilet Transfers Comments Pt needed Mod A for trasnfer over to the toilet and then a Max A stand step trasnfer over to the w/c afte completion Toilet Transfer Assistance Needed Physical assistance Physical Assistance Level 51%-75% CARE Score - Toilet Transfer 2 Gait Training Gait Training Time Entry 15 Gait Training Activity Yes Gait Training Activity 1 Distance (enter in feet) 25ft, 50ft Assistive Devices And Adaptive Equipments Walker, paris Level of Assistance 1 Partial/Mod assistance Gait Training Activity 1 Comment Pt ambualted with some improvement noted from previous session with therapist cueing pt to WS and therapist standing to the L side and rehabilitation consultant on R side. Pt needed assitance for paris walker placement and to look up into mirror. Pt was able to advance LLE with no physial assistance from therapist, cueing needed to take a larger step. Surface And Method Indoor;Even surface General Gait Deviations Narrow base of support Walk 10 Feet Assistance Needed Physical assistance Physical Assistance Level 26%-50% Comment Using paris walker CARE Score - Walk 10 Feet 3 Walk 50 Feet with Two Turns Assistance Needed Physical assistance Physical Assistance Level 26%-50% CARE Score - Walk 50 Feet with Two Turns 3 Walk 150 Feet Reason if not Attempted Safety concerns CARE Score - Walk 150 Feet 88 Walking 10 Feet on Uneven Surfaces Reason if not Attempted Safety concerns CARE Score - Walking 10 Feet on Uneven Surfaces 88 1 Step (Curb) Reason if not Attempted Safety concerns CARE Score - 1 Step (Curb) 88 4 Steps Reason if not Attempted Safety concerns CARE Score - 4 Steps 88 12 Steps Reason if not Attempted Safety concerns CARE Score - 12 Steps 88 Balance/Neuromuscular Re-Education Neuromuscular Re-Education Time Entry 30 Activity Component(s) 1 Sitting;Standing;Dynamic Assistive Devices And Adaptive Equipments Cones Balance/Neuromuscular Re-Education Activity 1 Pt worked on standing and then grabbing dowell bags from stool to the R and then tossing into basket in front of pt while therapist was positioned to the L and provided Min A. Pt completed 4 rounds with position of basket and dowell bags changed to challenge pt to look to the L and to scan while attending to the L side. Balance/Neuromuscular Re-Education Activity 2 Pt worked on sitting and standing moving dowell bags to specific cone colors using NDT pole to manuever bags with R hand. Pt was able to complete task with therapist facilitating and more frequent rest breaks as pt was fatiguing. Picking Up Object Reason if not Attempted Safety concerns CARE Score - Picking Up Object 88 Wheel 50 Feet with Two Turns Assistance Needed Physical assistance Physical Assistance Level 51%-75% CARE Score - Wheel 50 Feet with Two Turns 2 Type of Wheelchair/Scooter Manual Wheel 150 Feet Assistance Needed Physical assistance Physical Assistance Level Total assistance CARE Score - Wheel 150 Feet 1 Type of Wheelchair/Scooter Manual PT Assessment PT Assessment Pt was able to tolerate therapy session well. Pt was able to ambualte for longer distance of 50 ft with less cueing needed for spacing of feet and veering but reminders needed for keeping head up and AD use. Pt was also able to work on stadning balance with emphasis on WB through LE and also attending to L side. Pt is willing to work hard in therapy and has good family support. Prognosis Good Barriers to Discharge Insight into deficits;Medical diagnosis Evaluation/Treatment Tolerance Patient tolerated treatment well Medical Staff Made Aware Yes Strengths Attitude of self;Support and attitude of living partners;Support of extended family/friends Patient Education: Education Documentation No documentation found. Education Comments No comments found. Goals: Encounter Goals Encounter Goals (Active) Rolling: mod-independent Start: 07/23/24 Expected End: 08/13/24 Lying<>Sitting<>Lying: CGA/supervision with paris technique Start: 07/23/24 Expected End: 08/13/24 Pt will participate in pre-gait activities emphasizing B LE activation, proper sequencing, midline orientation, reciprocal movements, and controlled WS to facilitate safe gait training. Start: 07/23/24 Expected End: 08/13/24 Within 2 weeks of starting therapy, the patient and/or family/caregiver will demonstrate independence and be compliant in a written HEP in order to maximize gains made during therapy. Start: 07/23/24 Expected End: 08/13/24 Pt and/or caregiver(s) will have all appropriate DME, recommendations, or completed prescriptions to maximize pt's safety and independence at discharge. Start: 07/23/24 Expected End: 08/13/24 Transfers: Juancho stand step with LRAD Start: 07/23/24 Expected End: 08/13/24 Sit to Stand: CGA with LRAD Start: 07/23/24 Expected End: 08/13/24 Pt will be able to sit for at least 5 mins with support of no UE with midline orientation, erect posture, even KATY, appropriate WBing and ability to reach > 5" outside KATY without LOB to facilitate improved standing to return to functional tasks. Start: 07/23/24 Expected End: 08/13/24 Patient able to propel WC ~300ft supervision with B LE propulsion with appropriate safety awareness, midline orientation, and obstacle avoidance to facilitate safe community mobility. Start: 07/23/24 Expected End: 08/13/24 Supervising Physical Therapist: Brenda Marrero PT Patient progress towards current goals and plan of care was discussed in person with supervising Physical Therapist. Michael Lopez PTA CAL RECEPTIONIST * Wilma Guerrier, [facility] - 07/25/2024 1:30 PM MEDICAL RECEPTIONIST Speech-Language Pathology Treatment Note Patient Name: Toney Martel Today's Date: 07/25/2024 Preferred Language: Guamanian 07/25/24 1330 Time Calculation Start Time 1330 Stop Time 1400 Time Calculation (min) 30 min [facility] Last Visit Most Recent [facility] Session 07/24/24 General Family/Caregiver Present Yes Others Present and Son Pain Assessment Pain Assessment 0-10 Pain Score 0 Swallow Swallow Treatment Time 30 Swallow Activities pharyngeal-based rehabilitation exercises Swallow Comments Pt seen for skilled [facility] services focusing on dysphagia management. Pt participated in pharyngeal-based rehabilitation exercises focusing on pharyngeal constriction given results from recent FEES (effortful swallows x20 with saliva + ice chips, CTAR x15, VERONICA x10). Pt tolerated session well. Also provided ongoing education to family over dysphagia and safety precautions. All expressed understanding. CPOC. Comprehension Score Comprehends Complex or Abstract Information Without Prompting or Cueing Yes Mode of Comprehension Auditory Understands Complex or Abstract Directions and Conversations Requires extra time Functional Cosby Measure Comprehension Standby prompting - 5 Expression Score Expresses Complex or Abstract Information Without Prompting or Cueing Yes Expression Mode Vocal Expresses Complex or Abstract Ideas Relatively clearly Functional Cosby Measure Expression Standby prompting - 5 Social Interaction Score Interacts Appropriately Without Supervision Yes Interacts Appropriately At all times Functional Cosby Measure Social Interaction Complete independence - 7 Problem Solving Score Solves Complex Problems Yes Ability to Solve Complex Problems Requires more than reasonable time to make decisions Functional Cosby Measure Problem Solving Standby prompting - 5 Memory Score Recognizes, Remembers Routines, and Executes Requests Without Prompting Yes Remembers and Executes Requests Consistently without need for repetition Functional Cosby Measure Memory Complete independence - 7 Assessment & Plan Assessment: Plan: Treatment Plan/Goals Established with Patient/Caregiver: Yes Treatment/Interventions: Cognitive communication functioning, Executive functioning, Swallow function, Oral motor exercises, Pharyngeal exercises, Patient/family education, Communication functioning [facility] Plan: Skilled [facility] SDET Frequency: 5-7 days per week Duration: 4 weeks NPO: Yes Medications: Non oral Rehabilitation Exercises for Dysphagia Management: Effortful swallow, VERONICA (Effortful, intensive jaw opening exercise), Shaker and/or modified Shaker maneuver Subjective Current Problem:dysphagia Pain:Pain Assessment Pain Assessment: 0-10 (07/25/2024 1330) Pain Score: 0 (07/25/2024 1330) Post-Therapy Intervention Pain Assessment: Objective Vital Signs:Patient Vitals for the past 24 hrs: BP MAP (mmHg) Pulse Resp SpO2 07/25/24 0547 -- -- 66 (!) 129 96 % 07/25/24 0546 125/69 88 -- -- -- 07/24/24 1948 -- -- 68 16 97 % 07/24/24 1947 152/65 94 -- -- -- 07/24/24 1535 -- -- 61 18 98 % 07/24/24 1533 127/73 91 -- -- -- Last Visit:Most Recent [facility] Session: 07/24/24 General Visit Info:Family/Caregiver Present: Yes Others Present: and Son Treatment:Swallow: Swallow Treatment Time: 30 Swallow Activities: pharyngeal-based rehabilitation exercises Swallow Comments: Pt seen for skilled [facility] SD[facility] services focusing on dysphagia management. Pt participated in pharyngeal-based rehabilitation exercises focusing on pharyngeal constriction given results from recent FEES (effortful swallows x20 with saliva + ice chips, CTAR x15, VERONICA x10). Pt tolerated session well. Also provided ongoing education to family over dysphagia and safety precautions. All expressed understanding. CPOC. Comments: FIM Scores: Comprehension:Comprehends Complex or Abstract Information Without Prompting or Cueing: Yes Mode of Comprehension: Auditory Understands Complex or Abstract Directions and Conversations: Requires extra time Functional Cosby Measure Comprehension: Standby prompting - 5 Expression:Expresses Complex or Abstract Information Without Prompting or Cueing: Yes Expression Mode: Vocal Expresses Complex or Abstract Ideas: Relatively clearly Functional Cosby Measure Expression: Standby prompting - 5 Social Interaction:Interacts Appropriately Without Supervision: Yes Interacts Appropriately: At all times Functional Cosby Measure Social Interaction: Complete independence - 7 Problem Solving:Solves Complex Problems: Yes Ability to Solve Complex Problems: Requires more than reasonable time to make decisions Functional Cosby Measure Problem Solving: Standby prompting - 5 Memory:Recognizes, Remembers Routines, and Executes Requests Without Prompting: Yes Remembers and Executes Requests: Consistently without need for repetition Functional Cosby Measure Memory: Complete independence - 7 Outcome Measures:See FIMS Patient Education:Education Documentation No documentation found. Education Comments No comments found. Goals:Encounter Goals Encounter Goals (Active) STG - Patient will use speech intelligibility Intervention at conversational level Start: 07/24/24 Expected End: 08/21/24 LTG - Demonstrate reasoning Start: 07/24/24 Expected End: 08/21/24 LTG - Demonstrate visual scanning during a reading task Start: 07/24/24 Expected End: 08/21/24 LTG - Provides multi-step/complex solutions Start: 07/24/24 Expected End: 08/21/24 STG - Complete a 15-30 minute complex attention task Start: 07/24/24 Expected End: 08/21/24 STG - Demonstrate alternating attention by being able to shift the focus of attention between tasks/activities/ideas Start: 07/24/24 Expected End: 08/21/24 STG - Engage in deductive reasoning Start: 07/24/24 Expected End: 08/21/24 STG - Identify appropriate solutions to a problem Start: 07/24/24 Expected End: 08/21/24 STG - Identify cognitive/physical strengths and limitations Start: 07/24/24 Expected End: 08/21/24 LTG - Patient will improve on swallowing outcome measure Start: 07/24/24 Expected End: 08/21/24 STG - Improve airway protection Start: 07/24/24 Expected End: 08/21/24 STG - Improve bolus control Start: 07/24/24 Expected End: 08/21/24 STG - Increase the amount of food/liquid given by mouth while decreasing amount given by tube Start: 07/24/24 Expected End: 08/21/24 STG - Participate in an instrumental swallow study Start: 07/24/24 Expected End: 08/21/24 Wilma Guerrier CCC-SLP CAL RECEPTIONIST * Tierra Hernandez, OT - 07/25/2024 10:00 AM MEDICAL RECEPTIONIST Occupational Therapy .Treatment Session Note Patient Name: Toney Martel Today's Date: 07/25/2024 Preferred Language: Guamanian Assessment & Plan Assessment: OT Assessment Results: Impaired ADL status, Impaired left upper extremity, Impaired trunk control for functional activities, Communication impairment, Impaired endurance, Impaired sensation, Visual deficit OT Assessment: Pt participated in the above activity. 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 Pt is able to participate and demonstrate with volitional movement of left UE with cues. Pt tolerates visual scanning to the left with rest breaks. Evaluation/Treatment Tolerance: Patient tolerated treatment well Strengths: Attitude of self, Support of extended family/friends, Support and attitude of living partners Plan: Treatment Plan/Goals Established with Patient/Caregiver: Yes Treatment Interventions: ADL retraining, Cognitive reorientation, Endurance training, Neuromuscular reeducation, Orthotic/Orthotic management, Patient/family training, Scar management OT Plan: Skilled OT OT Frequency: 5-7 times per week Equipment Recommended: DME wheelchair, Wheelchair- seat cushion pressure reducing, Wheelchair- accessories, Wheelchair- back OT Planned Treatments: Activities of Daily Living, Caregiver training, Cognitive training, Community/Work reintegration, Coordination, Electric modalities, Equipment assessment, Equipment training, Group therapy, Home assessment/modification, Home management, Home program, Joint protection, Manual therapy, Mobility training, Neuromuscular reeducation, Orthotic, Patient education, Safety education, Seating/Positioning, Splinting, Taping, Therapeutic exercises, Therapeutic activities, Thermal modalities, Visual and perceptual training OT Duration: 1-2 weeks Subjective Pain: Pain Assessment Pain Assessment: DVPRS (07/25/2024 1000) Pain Score: 0 (07/25/2024 1000) Pain Rating Scale (DVPRS): No pain (07/25/2024 1000) Pain Location: Abdomen (pegtube) (07/24/2024 1300) Clinical Progression: Not changed (07/25/2024 1000) Response to Interventions: Pt has pain from pegtube site. RN aware (07/24/2024 1300) Vital Signs: Patient Vitals for the past 12 hrs: BP MAP (mmHg) Pulse Resp SpO2 07/25/24 0547 -- -- 66 (!) 129 96 % 07/25/24 0546 125/69 88 -- -- -- No data found. Objective 07/25/24 1000 Time Calculation Start Time 1000 Stop Time 1110 Time Calculation (min) 70 min Pain Assessment Pain Assessment DVPRS Pain Score 0 Pain Rating Scale (DVPRS) 0 Clinical Progression Not changed ADL Self Care/Home Management (ADLs) Time Entry 35 Lower Body Dressing Assistance Needed Physical assistance Physical Assistance Level 76% or more Comment Pt is able to help on the right side and with bridging/rolling in bed. However, pt continues to require assistance to don pants over her feet and on the left side. CARE Score - Lower Body Dressing 2 Toileting Activity Component(s) Managing clothing before;Managing clothing after;Managing incontinence hygiene/products;Perineal hygiene, front;Perineal hygiene, back Level of Assistance Substantial/Max assistance Comment Pt participated in toileting on the DAC over the toilet. Pt required total A with clothing management before toileting and with perineal hygiene. However, pt assisted with clothing management after toileting to manage brief and pants on the right side. Toileting Position/Set Up Drop-arm commode, non-padded (over the toilet) Toileting Hygiene Assistance Needed Physical assistance Physical Assistance Level Total assistance CARE Score - Toileting Hygiene 1 Toilet Transfer Assistance Needed Physical assistance Physical Assistance Level 51%-75% Comment Pt participated in stand step transfer with mod A and max verbal cues for how to step. CARE Score - Toilet Transfer 2 Therapeutic Procedures Time Entry Therapeutic Activity Time Entry 25 Therapeutic Exercise Time Entry 10 Therapeutic Exercise Therapeutic Exercise Activity 1 UBE x 10 with left hand derek wrapped. Therapeutic Activity Therapeutic Activity 1 Pt participated in visual scanning with a focus using left UE to move blocks from left to right, and to stack blocks. Pt require max verbal cues to scan to the left. Pt with improved left UE activation. OT Assessment OT Assessment Pt participated in the above activity. 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 Pt is able to participate and demonstrate with volitional movement of left UE with cues. Pt tolerates visual scanning to the left with rest breaks. Evaluation/Treatment Tolerance Patient tolerated treatment well Goals: Encounter Goals Encounter Goals (Active) Patient will perform upper body dressing with wheelchair level with mod assist to improve independence with dressing. Start: 07/24/24 Expected End: 08/20/24 Patient will perform lower body dressing with analytics manager at wheelchair level with mod assist to improve independence with dressing. Start: 07/24/24 Expected End: 08/20/24 Within 2 weeks of starting therapy, the patient and/or family/caregiver will demonstrate independence and be compliant in a written HEP in order to maximize gains made during therapy. Start: 07/24/24 Expected End: 08/20/24 Pt and/or caregiver(s) will have all appropriate DME, recommendations, or completed prescriptions to maximize pt's safety and independence at discharge. Start: 07/24/24 Expected End: 08/20/24 Patient and/or caregivers will verbalize understanding of home program including safety tips, equipment instructions, and home exercises. Start: 07/24/24 Expected End: 08/20/24 Patient will participate in forced use activities using the affected upper extremity with min assistance to inhibit abnormal movement patterns. Start: 07/24/24 Expected End: 08/20/24 Patient will tolerate weight bearing through their effected upper extremity for 25-30 minutes with min assist. Start: 07/24/24 Expected End: 08/20/24 Tierra Hernandez OT CAL RECEPTIONIST * Tierra Hernandez OT - 07/24/2024 1:00 PM MEDICAL RECEPTIONIST Occupational Therapy .Evaluation and Treatment Patient Name: Toney Martel Today's Date: 07/24/2024 Preferred Language: Guamanian Assessment & Plan Assessment: OT Assessment Results: Impaired ADL status, Impaired left upper extremity, Impaired trunk control for functional activities, Communication impairment, Impaired endurance, Impaired sensation, Visual deficit OT Assessment: Pt participated in initial evaluation. Pt is noted to have left neglect. Pt also with left field cut, left UE weakness. Pt able to scan with cues. Pt does demonstrate with ability to follow single step commands. Pt would benefit from skilled OT Evaluation/Treatment Tolerance: Patient tolerated treatment well Strengths: Attitude of self, Support of extended family/friends, Support and attitude of living partners Plan: Treatment Plan/Goals Established with Patient/Caregiver: Yes Treatment Interventions: ADL retraining, Cognitive reorientation, Endurance training, Neuromuscular reeducation, Orthotic/Orthotic management, Patient/family training, Scar management OT Plan: Skilled OT OT Frequency: 5-7 times per week Equipment Recommended: DME wheelchair, Wheelchair- seat cushion pressure reducing, Wheelchair- accessories, Wheelchair- back OT Planned Treatments: Activities of Daily Living, Caregiver training, Cognitive training, Community/Work reintegration, Coordination, Electric modalities, Equipment assessment, Equipment training, Group therapy, Home assessment/modification, Home management, Home program, Joint protection, Manual therapy, Mobility training, Neuromuscular reeducation, Orthotic, Patient education, Safety education, Seating/Positioning, Splinting, Taping, Therapeutic exercises, Therapeutic activities, Thermal modalities, Visual and perceptual training OT Duration: 1-2 weeks Subjective Pain: Pain Assessment Pain Assessment: 0-10 (07/24/20241299) Pain Score: 2 (07/24/20241299) Pain Location: Abdomen (pegtube) (07/24/20241299) Clinical Progression: Not changed (07/24/20241299) Response to Interventions: Pt has pain from pegtube site. RN aware (07/24/20241299) Vital Signs: Patient Vitals for the past 12 hrs: BP MAP (mmHg) Pulse Resp SpO2 07/24/24 1535 -- -- 61 18 98 % 07/24/24 1533 127/73 91 -- -- -- 07/24/24 1034 140/62 -- -- -- -- 07/24/24 0717 -- -- 64 -- 95 % 07/24/24 0717 147/61 90 -- -- -- 07/24/24 0639 -- -- 63 15 96 % 07/24/24 0638 (!) 81/54 63 -- -- -- No data found. Objective: 07/24/24 1300 Time Calculation Start Time 1300 Stop Time 1440 Time Calculation (min) 100 min Precautions UE Weight Bearing Status Full WB LE Weight Bearing Status Full WB Medical Precautions SBP < 140 mmHg per neurology Braces Applied Abdominal binder for peg tube Pain Assessment Pain Assessment 0-10 Pain Score 2 Pain Location Abdomen (pegtube) Clinical Progression Not changed Response to Interventions Pt has pain from pegtube site. RN aware Cognitive-Linguistic Functioning Overall Cognitive Status Impaired Behavior/Cognition Alert;Cooperative Orientation Level Oriented X4 Following Commands Follows 1 step commands with increased time Awareness of Deficits Decreased awareness of deficits Home Living Type of Home House Lives With Spouse Home Layout One level Home Access Other (Comment) (Threshold to enter the home) Entrance Stairs-Rails None Bathroom Shower/Tub Tub/shower unit (Per pt's , they will be moving to son's home in a few months.) Bathroom Toilet Standard Prior Function Level of [place] Independent with ADLs and functional transfers Receives Help From Family ADL Assistance Independent Homemaking Assistance Independent 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 Social History and Responsibilities Social History Source Spouse Prior Level of Function Independent Patient Responsibilities Driving;Home management;Laundry;Personal ADL Shower/Bathe Self Reason if not Attempted Safety concerns CARE Score - Shower/Bathe Self 88 Oral Hygiene Reason if not Attempted Medical concerns (Pt is NPO. Awaiting JAVA SDET clearance) CARE Score - Oral Hygiene 88 Upper Body Dressing Assistance Needed Physical assistance Physical Assistance Level 76% or more CARE Score - Upper Body Dressing 2 Lower Body Dressing Assistance Needed Physical assistance Physical Assistance Level 76% or more Comment Max A to don shorts and total A to don incontinent brief. CARE Score - Lower Body Dressing 2 Putting On/Taking Off Footwear Assistance Needed Physical assistance Physical Assistance Level 76% or more Comment Pt able to doff socks with supervision. Pt required total A to don socks and shoes. CARE Score - Putting On/Taking Off Footwear 2 Eating Reason if not Attempted Safety concerns (NPO) CARE Score - Eating 88 Toileting Hygiene Assistance Needed Physical assistance Physical Assistance Level Total assistance CARE Score - Toileting Hygiene 1 Toilet Transfer Assistance Needed Physical assistance Physical Assistance Level 76% or more Comment Max A for toilet transfer, however, pt able to assist with cues. CARE Score - Toilet Transfer 2 Activity Tolerance Evaluation/Treatment Tolerance Patient tolerated treatment well Vision - Basic Assessment Current Vision Other (Comment) (Visual deficits due to possible left field cut) Patient Visual Report Unable to keep objects in focus;Balance difficulty;Past pointing/reaching Vision - Complex Assessment Ocular Range of Motion Restricted on the left Head Position Head tilt Tracking Decreased smoothness of horizontal tracking;Decreased smoothness of vertical tracking;Decreased smoothness of eye movement to R superior field;Decreased smoothness of eye movement to L superior field;Requires cues, head turns, or add eye shifts to track;Unable to hold eye position out of midline Convergence Severe deficit (Greater than 10 from nose) Visual [place] Difficulty detecting stimulus with right eye in left lateral quadrant;Difficulty detecting stimulus with left eye in left lower quadrant Sensation Light Touch RUE Impaired;LUE Impaired Sensation Comments Pt reports numbness in bilateral hands. Coordination Movements are Fluid and Coordinated No Finger to Nose Left impaired;Right impaired Finger Opposition Left impaired;Right impaired Hand Function Gross Grasp Impaired (left grasp is impaired. Right grasp in intact.) Coordination Impaired RUE Assessment RUE Assessment WFL (PROM is WNL. Pt has impaired AROM due to residual effects of stroke.) LUE Assessment LUE Assessment X LUE AROM (degrees) L Shoulder Flexion 0-60 L Shoulder Horizontal ABduction 0-30 L Shoulder Horizontal ADduction 0-60 L Elbow Flexion 0-60 L Forearm Pronation WFL L Forearm Supination 0-60 L Thumb abduction 0 Upper Extremity Tone Left Upper Extremity Normal Right Upper Extremity Normal Hearing, Speech, and Vision Ability to Hear Adequate Ability to See in Adequate Light Moderately impaired (with glasses) Expression of Ideas and Wants Without difficulty Understanding Verbal and Non-Verbal Content Understands Confusion Assessment Method (CAM) Is there evidence of an acute change in mental status from the patient's baseline? No Inattention Behavior not present Disorganized thinking Behavior not present Altered level of consciousness Behavior not present Prior Functioning: Everyday Activities Self Care Independent Indoor Mobility (Ambulation) Independent Stairs Independent Functional Cognition Independent Prior Device Use None of the given options OT Assessment OT Assessment Results Impaired ADL status;Impaired left upper extremity;Impaired trunk control for functional activities;Communication impairment;Impaired endurance;Impaired sensation;Visual deficit OT Assessment Pt participated in initial evaluation. Pt is noted to have left neglect. Pt also with left field cut, left UE weakness. Pt able to scan with cues. Pt does demonstrate with ability to follow single step commands. Pt would benefit from skilled OT Strengths Attitude of self;Support of extended family/friends;Support and attitude of living partners OT Plan Treatment Plan/Goals Established with Patient/Caregiver Yes Treatment Interventions ADL retraining;Cognitive reorientation;Endurance training;Neuromuscular reeducation;Orthotic/Orthotic management;Patient/family training;Scar management OT Plan Skilled OT OT Frequency 5-7 times per week Equipment Recommended DME wheelchair;Wheelchair- seat cushion pressure reducing;Wheelchair- accessories;Wheelchair- back OT Planned Treatments Activities of Daily Living;Caregiver training;Cognitive training;Community/Work reintegration;Coordination;Electric modalities;Equipment assessment;Equipment training;Group therapy;Home assessment/modification;Home management;Home program;Joint protection;Manual therapy;Mobility training;Neuromuscular reeducation;Orthotic;Patient education;Safety education;Seating/Positioning;Splinting;Taping;Therapeutic exercises;Therapeutic activities;Thermal modalities;Visual and perceptual training OT Duration 1-2 weeks OT Evaluation Time Entry OT Evaluation (Complex) Time Entry 100 Outcome Measures: 07/24/24 1300 Box and Blocks Box and Blocks R UE 12; not able to complete with left Patient Education: Education Documentation No documentation found. Education Comments No comments found. Goals: Encounter Goals Encounter Goals (Active) Patient will perform upper body dressing with wheelchair level with mod assist to improve independence with dressing. Start: 07/24/24 Expected End: 08/20/24 Patient will perform lower body dressing with analytics manager at wheelchair level with mod assist to improve independence with dressing. Start: 07/24/24 Expected End: 08/20/24 Within 2 weeks of starting therapy, the patient and/or family/caregiver will demonstrate independence and be compliant in a written HEP in order to maximize gains made during therapy. Start: 07/24/24 Expected End: 08/20/24 Pt and/or caregiver(s) will have all appropriate DME, recommendations, or completed prescriptions to maximize pt's safety and independence at discharge. Start: 07/24/24 Expected End: 08/20/24 Patient and/or caregivers will verbalize understanding of home program including safety tips, equipment instructions, and home exercises. Start: 07/24/24 Expected End: 08/20/24 Patient will participate in forced use activities using the affected upper extremity with min assistance to inhibit abnormal movement patterns. Start: 07/24/24 Expected End: 08/20/24 Patient will tolerate weight bearing through their effected upper extremity for 25-30 minutes with min assist. Start: 07/24/24 Expected End: 08/20/24 Tierra Hernandez OT CAL RECEPTIONIST CAL RECEPTIONIST * Salomon Rubio DO - 07/24/2024 10:47 AM MEDICAL RECEPTIONIST Subjective: Pt seen and examined bedside, spouse present. Pt getting dressed with PT. No events overnight. No issues or concerns by RN. Pt without complaint at this time. Physical Exam: Visit Vitals BP 147/61 Pulse 64 Temp 36.6 ?C (97.9 ?F) Resp 15 Ht 1.575 m (5' 2.01") Wt 78.4 kg (172 lb 13.5 oz) LMP (LMP Unknown) SpO2 95% BMI 31.60 kg/m? OB Status Postmenopausal Smoking Status Never BSA 1.85 m? Gen: NAD, comfortable HEENT: MMM, sclera anicteric Heart: no cyanosis Lungs: unlabored breathing on RA. No accessory muscle use. : no edwards in place Neuro: Awake, alert. Answering questions appropriately. CN2-12 grossly intact. Follows commands. Assessment and Plan: Toney Martel is a 78 y.o. year old year old female with admitted to acute inpatient rehabilitation for functional impairments and medical management. Plan:-Will continue current plan of care for diagnosis as above, including PT/OT/JAVA SDET, medical management and interdisciplinary rehab program to address functional deficits. See primary [employer] notes for further details. Time spent greater than 15 minutes, more than half of which was spent coordinating care with the patient, RN on plan of care. Deedee Santoro #[id number] CAL RECEPTIONIST * Michael Lopez PTA - 07/24/2024 10:00 AM MEDICAL RECEPTIONIST Physical Therapy Treatment Session Note Patient Name: Toney Martel Today's Date: 07/24/2024 Preferred Language: Guamanian Assessment & Plan Assessment: PT Assessment: Pt was able to tolerate therapy session well. Pt worked on bed mobility when getting dressed, transfers with both squat pivot and stand step with Min A at times. Pt was able to ambualte for short distances needing cueing for sequencing and looking up as pt tendency is to drift to the R. Pt is motivated to progress, has good potential and has great family support contributing to improved outcome in rehab. Prognosis: Good Barriers to Discharge: Insight into deficits, Medical diagnosis Evaluation/Treatment Tolerance: Patient tolerated treatment well Medical Staff Made Aware: Yes Strengths: Support and attitude of living partners, Support of extended family/friends, Attitude of self Plan: Treatment Plan/Goals Established with Patient/Caregiver: Yes PT Frequency: 5-7 times per week PT Discharge Recommendations: Inpatient rehab facility placement Equipment Recommended: DME wheelchair PT Planned Treatment: Balance training, Basic activities of daily living, Bed mobility training, Body weight support treadmill training, Caregiver training, Equipment training, Gait training, Group therapy, Manual therapy, Neuromuscular reeducation, Orthotic training, Patient education, Positioning, Posture/Body mechanics training, Seating, Stair training, Therapeutic activities, Therapeutic exercises, Transfer training, Wheelchair assessment and management Duration: 3-4 weeks Subjective Pt was semi-bales in bed with bedside when therapist arrived and pt was agreeable to therapy. At the end of final session pt was left seated in w/c with maura belt donned, family bedside and nursing notified of pt status. Pain: Pain Assessment Pain Assessment: DVPRS (07/24/2024999) Pain Score: 2 (07/24/2024999) Pain Rating Scale (DVPRS): Notice pain, does not interfere with activities (07/24/2024999) Pain Type: Surgical pain (07/24/2024999) Pain Location: Abdomen (07/24/2024999) Pain Orientation: Mid (Pain associated with peg site) (07/24/2024999) Clinical Progression: Not changed (07/24/2024999) Vital Signs: Patient Vitals for the past 12 hrs: BP MAP (mmHg) Pulse Resp SpO2 07/24/24 1535 -- -- 61 18 98 % 07/24/24 1533 127/73 91 -- -- -- 07/24/24 1034 140/62 -- -- -- -- 07/24/24 0717 -- -- 64 -- 95 % 07/24/24 0717 147/61 90 -- -- -- 07/24/24 0639 -- -- 63 15 96 % 07/24/24 0638 (!) 81/54 63 -- -- -- No data found. Objective 07/24/24 1000 07/24/24 1445 PT Last Visit PT Received On 07/24/24 -- Response to Previous Treatment Patient with no complaints from previous session. -- General Family/Caregiver Present Yes -- Others Present Pt bedside -- Time Calculation Start Time 1000 1445 Stop Time 1100 1515 Time Calculation (min) 60 min 30 min Activity Tolerance Endurance Tolerates 30 min exercise with multiple rests -- Sitting Balance Sits without support for more than 30 sec -- Early Mobility/Exercise Safety Screen Proceed with mobilization - No exclusion criteria met -- Pain Assessment Pain Assessment DVPRS -- Pain Score 2 -- Pain Rating Scale (DVPRS) 2 -- Pain Type Surgical pain -- Pain Location Abdomen -- Pain Orientation Mid (Pain associated with peg site) -- Clinical Progression Not changed -- Health Conditions Pain Interference with Therapy Activities Rarely or not at all -- Therapeutic Activity Therapeutic Activity Time Entry 20 -- Therapeutic Activity 1 Therapist assisted pt with dressing pt with educating about paris-technique and dressing weaker side first. -- Therapeutic Activity 2 Therapist had pt perform bed mobility and transfers -- Bed Mobility Bed Mobility Yes -- Bed Mobility 1 Level of Assistance 1 Partial/Mod assistance -- Bed Mobility Comments 1 Pt needed Mod A to roll L and R in bed in order to pull up shorts completely to bottom -- Bed Mobility To/From Roll left/right -- Assistive Devices And Adaptive Equipments Bed rail -- Bed Mobility 2 Level of Assistance 2 Partial/Mod assistance -- Bed Mobility Comments 2 Pt needed cueing to being LE off the bed with Min A from therapist and then Min A at the trunk to get upright -- Bed Mobility To/From Supine to sit on EOB -- Assistive Devices And Adaptive Equipments Bed rail -- Roll Left and Right Assistance Needed Physical assistance -- Physical Assistance Level 26%-50% -- CARE Score - Roll Left and Right 3 -- Lying to Sitting on Side of Bed Assistance Needed Physical assistance -- Physical Assistance Level 25% or less -- CARE Score - Lying to Sitting on Side of Bed 3 -- Sit to Lying Assistance Needed Physical assistance -- Physical Assistance Level 26%-50% -- CARE Score - Sit to Lying 3 -- Transfers Transfer Yes -- Transfer 1 Technique 1 Squat pivot -- Level of Assistance 1 Partial/Mod assistance -- Trials/Comments 1 Pt was cued to reach over for the arm rest and was able to transfer with therapist cueing pt to lean forward and avoid standing up tall. Pt was also able to transfer over the same to the mat. Pt needed Mod A initally but able to progress to Min A -- Transfer To/From Bed;Wheelchair;Mat -- Assistive Devices And Adaptive Equipments No device -- Transfers 2 Technique 2 Stand step -- Level of Assistance 2 Partial/Mod assistance -- Trials/Comments 2 Pt was able to complete sit to stands with therapist providing Mod A initally to block LLE and cueing for pt to push up from mat. Pt was able to progress to a Min A consistentl throughout session. -- Transfer To/From [id number] -- Assistive Devices And Adaptive Equipments Walker, [place] -- Transfers 3 Technique 3 -- Stand step Level of Assistance 3 -- Partial/Mod assistance Trials/Comments 3 -- Pt was able to practice stand step transfer with therapist on L side guarding an pt demonstrating good ability to reach for arm rest to safely sit in chair Transfer To/From -- Wheelchair;Mat Assistive Devices And Adaptive Equipments -- No device Chair/Eld-pj-Gvajn Transfer Assistance Needed Physical assistance -- Physical Assistance Level 25% or less -- Comment Min A squat pivot -- CARE Score - Chair/Xbs-nd-Wqdef Transfer 3 -- Sit to Stand Assistance Needed Physical assistance -- Physical Assistance Level 25% or less -- Comment Able to stand with hemiwalker and Min A as therapist stabilized LLE -- CARE Score - Sit to Stand 3 -- Car Transfer Reason if not Attempted Environmental limitations -- CARE Score - Car Transfer 10 -- Gait Training Gait Training Time Entry 15 -- Gait Training Activity Yes -- Gait Training Activity 1 Distance (enter in feet) 10 -- Assistive Devices And Adaptive Equipments Walker, [place] -- Level of Assistance 1 Partial/Mod assistance -- Gait Training Activity 1 Comment Pt ambualtes with Mod A initally and cueing needed for sequence, WS, spacing between feet, AD placement and keeping head up as pt tendency is to look down and to the R. health information tech was present to help control AD but did not physically need to assist pt with gait. -- Surface And Method Indoor;Even surface -- General Gait Deviations Narrow base of support;Antalgic;Decreased lorena -- Gait Training Activity 2 Distance (enter in feet) 20ft X 2 -- Assistive Devices And Adaptive Equipments Walker, [place] -- Level of Assistance 2 Partial/Mod assistance -- Gait Training Activity 2 Comment Pt ambualted in hallway with same level of assist and cueing needed. Mirror was placed in front of pt and pt was cued to keep head up and look for mirror while taking good even steps. -- Surface And Method Indoor;Even surface -- Walk 10 Feet Assistance Needed Physical assistance -- Physical Assistance Level 26%-50% -- Comment Using paris walker, mirror used for visual feedback -- CARE Score - Walk 10 Feet 3 -- Walk 50 Feet with Two Turns Reason if not Attempted Safety concerns -- CARE Score - Walk 50 Feet with Two Turns 88 -- Walk 150 Feet Reason if not Attempted Safety concerns -- CARE Score - Walk 150 Feet 88 -- Walking 10 Feet on Uneven Surfaces Reason if not Attempted Safety concerns -- CARE Score - Walking 10 Feet on Uneven Surfaces 88 -- 1 Step (Curb) Reason if not Attempted Safety concerns -- CARE Score - 1 Step (Curb) 88 -- 4 Steps Reason if not Attempted Safety concerns -- CARE Score - 4 Steps 88 -- 12 Steps Reason if not Attempted Safety concerns -- CARE Score - 12 Steps 88 -- Balance/Neuromuscular Re-Education Neuromuscular Re-Education Time Entry 15 30 Activity Component(s) 1 Standing;Static Standing;Dynamic Assistive Devices And Adaptive Equipments No device Step (specify height) (4 in high step) Balance/Neuromuscular Re-Education Activity 1 Pt worked on sit to stands with mirror in front and therapist was cueing pt to stay midline and correct posture. Therapist was on L side providing Mod A initally but progressed to Min A. Pt was able to complete 3 sit to stands and tolerates standing for 60-90 sec at a time Pt worked on stanidng with mirror in front and velcro blocks placed to the side and then pt was cued to move blocks from one side of mirror to the other with therapist cueing pt to look to the L for blocks. Balance/Neuromuscular Re-Education Activity 2 -- Pt worked on placing R foot up and down on 4 in step with hemiwalker on R side and theraist stabilizing LLE. Pt initally has trouble with WS and picking up R foot, but with therapist facilitating and cueing pt was able to completed 2 X 10 reps with a seated rest break. Improved control was shows on second round of stepping. Picking Up Object Comment Attempted to have pt grab block from ground while seated but too much discomfort in stomach -- Reason if not Attempted Safety concerns -- CARE Score - Picking Up Object 88 -- Wheelchair Activities Wheelchair Management Time Entry 10 -- Wheelchair Size 18 -- Wheelchair Type Manual -- Manual WC Types K1- standard weight -- Wheelchair Cushion None (Therapist removed cushion as it was causing pt to slide due to height) -- Level of Assistance Substantial/Max assistance -- Propulsion Yes -- Propulsion Type 1 Manual -- Level 1 Level -- Method 1 Manual UE Propulsion;Left lower extremity;Right lower extremity -- Level of Assistance 1 Substantial/Max assistance -- Description/Details 1 Therapist attempted to have pt use BLE to propel chair and pt was able to initally but would forget to bring LLE fwd and it would get caught under chair. Therapist had pt try using RUE to propel but was having difficulty propelling due to fatigue. Pt needed Max A from therapist to propel 50 ft. -- Wheel 50 Feet with Two Turns Assistance Needed Physical assistance -- Physical Assistance Level 51%-75% -- CARE Score - Wheel 50 Feet with Two Turns 2 -- Type of Wheelchair/Scooter Manual -- Wheel 150 Feet Assistance Needed Physical assistance -- Physical Assistance Level Total assistance -- CARE Score - Wheel 150 Feet 1 -- Type of Wheelchair/Scooter Manual -- PT Assessment PT Assessment -- Pt was able to tolerate therapy session well. Pt worked on bed mobility when getting dressed, transfers with both squat pivot and stand step with Min A at times. Pt was able to ambualte for short distances needing cueing for sequencing and looking up as pt tendency is to drift to the R. Pt is motivated to progress, has good potential and has great family support contributing to improved outcome in rehab. Prognosis -- Good Barriers to Discharge -- Insight into deficits;Medical diagnosis Evaluation/Treatment Tolerance -- Patient tolerated treatment well Medical Staff Made Aware -- Yes Strengths -- Support and attitude of living partners;Support of extended family/friends;Attitude of self PT Plan Treatment Plan/Goals Established with Patient/Caregiver -- Yes PT Frequency -- 5-7 times per week Equipment Recommended -- DME wheelchair PT Planned Treatment -- Balance training;Basic activities of daily living;Bed mobility training;Body weight support treadmill training;Caregiver training;Equipment training;Gait training;Group therapy;Manual therapy;Neuromuscular reeducation;Orthotic training;Patient education;Positioning;Posture/Body mechanics training;Seating;Stair training;Therapeutic activities;Therapeutic exercises;Transfer training;Wheelchair assessment and management Duration -- 3-4 weeks Patient Education: Education Documentation No documentation found. Education Comments No comments found. Goals: Encounter Goals Encounter Goals (Active) Rolling: mod-independent Start: 07/23/24 Expected End: 08/13/24 Lying<>Sitting<>Lying: CGA/supervision with paris technique Start: 07/23/24 Expected End: 08/13/24 Pt will participate in pre-gait activities emphasizing B LE activation, proper sequencing, midline orientation, reciprocal movements, and controlled WS to facilitate safe gait training. Start: 07/23/24 Expected End: 08/13/24 Within 2 weeks of starting therapy, the patient and/or family/caregiver will demonstrate independence and be compliant in a written HEP in order to maximize gains made during therapy. Start: 07/23/24 Expected End: 08/13/24 Pt and/or caregiver(s) will have all appropriate DME, recommendations, or completed prescriptions to maximize pt's safety and independence at discharge. Start: 07/23/24 Expected End: 08/13/24 Transfers: Juancho stand step with LRAD Start: 07/23/24 Expected End: 08/13/24 Sit to Stand: CGA with LRAD Start: 07/23/24 Expected End: 08/13/24 Pt will be able to sit for at least 5 mins with support of no UE with midline orientation, erect posture, even KATY, appropriate WBing and ability to reach > 5" outside KATY without LOB to facilitate improved standing to return to functional tasks. Start: 07/23/24 Expected End: 08/13/24 Patient able to propel WC ~300ft supervision with B LE propulsion with appropriate safety awareness, midline orientation, and obstacle avoidance to facilitate safe community mobility. Start: 07/23/24 Expected End: 08/13/24 Supervising Physical Therapist: Yakelin Larios PT Patient progress towards current goals and plan of care was discussed in person with supervising Physical Therapist. Michael Lopez PTA CAL RECEPTIONIST * Kalie Acevedo CCC-JAVA SDET - 07/24/2024 9:00 AM MEDICAL RECEPTIONIST Speech-Language Pathology Evaluation/Treatment Note Patient Name: Toney Martel Today's Date: 07/24/2024 Preferred Language: Guamanian Assessment & Plan : Mild cognitive-linguistic impairment and severe dysphagia. Instrumental assessment warranted to assess swallow function and appropriateness for diet upgrade. Skilled therapy recommended 5-7x/week. Assessment: JAVA SDET Assessment Results: Cognitive-Linguistic impairment Prognosis: Good Session Tolerance: Patient tolerated session well Strengths: Support of extended family/friends Assessment Comments: Pt presents with mild cognitive-linguisitic deficits c/b left neglect, delayed processing, and reduced reasoning and complex problem solving skills. Instrumental assessment is warranted to further assess oropharyngeal phase dysphagia. Plan: Treatment Plan/Goals Established with Patient/Caregiver: Yes Treatment/Interventions: Cognitive communication functioning, Executive functioning, Swallow function, Oral motor exercises, Pharyngeal exercises, Patient/family education, Communication functioning JAVA SDET Plan: Skilled JAVA SDET Frequency: 5-7 days per week Duration: 4 weeks NPO: Yes Medications: Non oral Rehabilitation Exercises for Dysphagia Management: Effortful swallow, VERONICA (Effortful, intensive jaw opening exercise), Shaker and/or modified Shaker maneuver Subjective : Pt seen alert/awake at bedside with present for IPR speech pathology assessment. Pain: Pain Assessment Pain Assessment: DVPRS (07/24/2024899) Pain Rating Scale (DVPRS): Hardly notice pain (07/24/2024899) Pain Type: Chronic pain (07/24/2024899) Pain Location: Back (07/24/2024899) Post-Therapy Intervention Pain Assessment: Objective Vital Signs: Patient Vitals for the past 24 hrs: BP MAP (mmHg) Pulse Resp SpO2 07/24/24 0717 -- -- 64 -- 95 % 07/24/24 0717 147/61 90 -- -- -- 07/24/24 0639 -- -- 63 15 96 % 07/24/24 0638 (!) 81/54 63 -- -- -- 07/23/242001 -- -- 61 16 95 % 07/23/242001 (!) 130/52 78 -- -- -- General: Patient Medical History Reviewed: Yes Medical History Comments: Per EMR, Toney Martel is a 78Y F PMH of HTN and carpal tunnel syndrome who was admitted on 07/15/24 on for evaluation of wake up L sided plegia, LFD and R gaze deviation. LKW 2030 07/14/24 when patient went to bed, woke up at 0815 with difficulty waking up. Exam w/ NIHSS 17 for L sided weakness, sensory, LFD, L homonymous hemianopia, R gaze. CT w/ ASPECTS 6 (internal cap., insula, M5, M6) and possible hyperdense R MCA. CTA w/ R ICA dissection, acute occlusion in R ICA and distal reconstitution of flow in MCA territory but M2 and P-com occlusion. CTP w/ established M5/M6 region stroke, but 48ml volume in posterior parietal and occipital regions. Patient taken for emergent thrombectomy. within WAKE UP protocol window IAT TICI3. MRI showing R MCA/BIOINFORMATICS TECHNICIAN/SHAWANDA strokes. Failed FEES 07/20, PEG placed 07/22/23. Patient now presents to [facility]. Family/Caregiver Present: Yes Vision Status: WFL Hearing Status: WFL Oral/Motor: Dentition: Dentures top Face: Impaired Face Symmetry: Impaired Face Sensation: Within Functional Limits Facial ROM: Within Functional Limits Jaw: Within Functional Limits Lips: Impaired Lips Symmetry: Impaired Lips ROM: Impaired Lips Coordination: Impaired Lips Strength: Impaired Tongue: Impaired Tongue Symmetry: Impaired Tongue Coordination: Impaired Tongue Strength: Impaired Soft Palate: Within Functional Limits Breath Support: Respiratory Status: Room air Swallow Assessment: Clinical Swallow Evaluation Patient Positioning: In bed Previous History of Dysphagia?: No Inability to Follow One Step Directions?: No Tracheostomy Present: No Inability to Manage Their Secretions?: No Incomplete Lingual ROM?: Yes Incomplete Facial Symmetry (Facial Droop)?: Yes Voice Change During Swallowing Trials?: Yes Abnormal/Weak Volitional Cough?: No Cough/Throat Clear w/ Trial Consistency?: No Dysphonia (Quality and/or Pitch Change)?: No Motor Speech Disorder (Dysarthria/Apraxia)?: No Apraxia of the Swallow Suspected?: No Delayed Swallow Suspected?: Yes Multiple Swallows Per Bolus Suspected?: No Tongue Pumping Suspected?: No Clinical Swallow Evaluation Comments: Pt presented with trials of ice chips, water via tsp, and puree. Previous FEEs indicated high risk of aspiration across consistencies, with silent aspiration noted with thin liquid. Therefore, further instrumental is assessment is warranted. Oral phase was c/b reduced labial seal/coordination and bolus holding, requiring verbal cues initiate swallow across consistencies. No s/s of airway invasion were noted, however, with pt's history of silent aspiration, these results should be reviewed with caution. Motor/Speech: Oral Apraxia Oral Apraxia: Within Functional Limits Verbal Apraxia Verbal Apraxia: Within Functional Limits Intelligibility Intelligibility: Exceptions to WFL Spontaneously Produced Phrases: Impaired Spontaneously Produced Sentences: Impaired Conversational Speech: Impaired Intelligibility Comments: Pt presents with mild dysarthria with speech judged to be 80% intelligible. Voice: Respiration Characteristics of Voice: Within Functional Limits Vocal Quality: Within Functional Limits Vocal Intensity: Within Functional Limits Auditory Comprehension: Identification Body Part: Within Functional Limits Common Object: Within Functional Limits Following Directions Follows one step commands: Within Functional Limits Comprehension Simple Yes/No Questions: Within Functional Limits Complex Yes/No Questions: Impaired Expression: Verbal Expression Primary Mode of Expression: Verbal Confrontation Naming: Within Functional Limits Cognitive-Linguistic Functioning:Overall Cognitive Status: Impaired Behavior/Cognition: Alert, Cooperative Arousal/Alertness: Delayed responses to stimuli Orientation Level: Oriented X4 Awareness of Deficits: Decreased awareness of deficits Problem Solving: Able to problem solve independently (Simple) Executive Functions: Difficulty with cognitive endurance, Difficulty with attention to detail, Difficulty with information processing, Difficulty with reasoning Pragmatic Behaviors:Affect/Facial Expression: Within Functional Limits Prosody: Within Functional Limits Eye Contact: Impaired FIM Scores: Comprehension:Comprehends Complex or Abstract Information Without Prompting or Cueing: Yes Mode of Comprehension: Auditory Understands Complex or Abstract Directions and Conversations: Requires extra time Functional Cosby Measure Comprehension: Standby prompting - 5 Expression:Expresses Complex or Abstract Information Without Prompting or Cueing: Yes Expression Mode: Vocal Expresses Complex or Abstract Ideas: Relatively clearly Functional Cosby Measure Expression: Standby prompting - 5 Social Interaction:Interacts Appropriately Without Supervision: Yes Interacts Appropriately: At all times Functional Cosby Measure Social Interaction: Complete independence - 7 Problem Solving:Solves Complex Problems: Yes Ability to Solve Complex Problems: Requires more than reasonable time to make decisions Functional Cosby Measure Problem Solving: Standby prompting - 5 Memory:Recognizes, Remembers Routines, and Executes Requests Without Prompting: Yes Remembers and Executes Requests: Consistently without need for repetition Functional Cosby Measure Memory: Complete independence - 7 Quality Indicators: Hearing, Speech, and Vision:Ability to Hear: Adequate Expression of Ideas and Wants: Without difficulty Cognitive Pattern Assessment:Brief Interview for Mental Status (BIMS) Repetition of Three Words (First Attempt): 3 Temporal Orientation: Year: Correct Temporal Orientation: Month: Accurate within 5 days Temporal Orientation: Day: Correct Recall: "Sock": Yes, no cue required Recall: "Blue": Yes, no cue required Recall: "Bed": Yes, no cue required BIMS Summary Score: 15 Confusion Assessment Method (CAM): Is there evidence of an acute change in mental status from the patient's baseline?: No Inattention: Behavior not present Disorganized thinking: Behavior not present Altered level of consciousness: Behavior not present Outcome Measures: Patient Education:Education Documentation Speech-Language/Pathology Treatment Plan, taught by Kalie Acevedo CCC-JAVA SDET at 07/24/2024 3:03 PM. Learner: Significant Other, Patient Readiness: Acceptance Method: Explanation Response: Verbalizes Understanding Results of Exam, taught by Kalie Acevedo CCC-JAVA SDET at 07/24/2024 3:03 PM.Learner: Significant Other, Patient Readiness: Acceptance Method: Explanation Response: Verbalizes Understanding Education CommentsNo comments found. Goals:Encounter Goals Encounter Goals (Active) STG - Patient will use speech intelligibility Intervention at conversational level Start: 07/24/24 Expected End: 08/21/24 LTG - Demonstrate reasoning Start: 07/24/24 Expected End: 08/21/24 LTG - Demonstrate visual scanning during a reading task Start: 07/24/24 Expected End: 08/21/24 LTG - Provides multi-step/complex solutions Start: 07/24/24 Expected End: 08/21/24 STG - Complete a 15-30 minute complex attention task Start: 07/24/24 Expected End: 08/21/24 STG - Demonstrate alternating attention by being able to shift the focus of attention between tasks/activities/ideas Start: 07/24/24 Expected End: 08/21/24 STG - Engage in deductive reasoning Start: 07/24/24 Expected End: 08/21/24 STG - Identify appropriate solutions to a problem Start: 07/24/24 Expected End: 08/21/24 STG - Identify cognitive/physical strengths and limitations Start: 07/24/24 Expected End: 08/21/24 LTG - Patient will improve on swallowing outcome measure Start: 07/24/24 Expected End: 08/21/24 STG - Improve airway protection Start: 07/24/24 Expected End: 08/21/24 STG - Improve bolus control Start: 07/24/24 Expected End: 08/21/24 STG - Increase the amount of food/liquid given by mouth while decreasing amount given by tube Start: 07/24/24 Expected End: 08/21/24 STG - Participate in an instrumental swallow study Start: 07/24/24 Expected End: 08/21/24 Kalie Acevedo CCC-SLP CAL RECEPTIONIST * Ange Soler, PT - 07/23/2024 2:10 PM MEDICAL RECEPTIONIST Physical Therapy Evaluation and Treatment Note Patient Name: Toney Martel Today's Date: 07/23/2024 Preferred Language: Guamanian Assessment & Plan Assessment: PT Assessment: Patient admitted to [facility] following R MCA infarct with hemorrhage into R parietal and occipital lobes. Prior to admission, patient was independent in all ADLs, workking and driving and living in a one story home with two SKIP with . 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 She is currently Juancho/modA for bed mobility, Juancho/modA squat pivot (Juancho to R, modA to L) and totalA for WC mobility (decreased time dudring evaluation to formally assess). Patient did not ambulate on evaluation due to time but would be appropriate to mobilize with paris walker and DF wrap to mimic L AFO for DF weakness. Goals for patient are to achieve a Jony/supervision for bed mobility, Juancho for transfers and completing locomotion in safest form. Nueorlogy ntoes also highlinght L hemonymous hemianopsia though jesus manuel presents with more inattention than visual field cut; formal vision assessment is pending and would be appropriate. Exprected LOS is 2-3 weeks to maximize funcitonal potential and limit caregiver burden; patient does have supportive family and is present and willing to asists if necessary and supervise patient. DME of 16 inch WC with swing away leg rests and flip back arm rest would be appropriate and DME for ambulation pending progress. Follow up with Electrical Automation Engineer/OPA required as jesus manuel will utilize L AFO (solid ankle) for upright mobility but patient may not possess hip flexion necessary despite AFO for functional ambulation and formal gait assessment is required. Barriers to Discharge: Medical diagnosis, Safety awareness, Severity of deficits, Time since onset Plan: PT Frequency: 5-7 times per week Equipment Recommended: Wheelchair- accessories PT Planned Treatment: Balance training, Gait training, Group therapy, Neuromuscular reeducation, Therapeutic activities, Therapeutic exercises Duration: 3-4 weeks Subjective Current Problem: Se H&P Pain: Pain Assessment Pain Assessment: DVPRS (07/23/2024 1410) Pain Score: 4 (07/23/2024 1410) Pain Rating Scale (DVPRS): Distracts me, can do usual activities (07/23/2024 1410) Pain Type: Acute pain (07/23/2024 1410) Pain Location: Abdomen (07/23/2024 1410) Pain Orientation: Other (Comment) (stomach) (07/23/2024 1410) Post-Therapy Intervention Pain Assessment: Vital Signs: Patient Vitals for the past 24 hrs: BP Pulse Resp 07/23/24 1341 (!) 122/56 58 18 No data found. Health Conditions Home Living: Home Living Type of Home: House Lives With: Spouse Home Adaptive Equipment: None Home Living Comments: per spouse Brittanyjesus manuel was independent prior to CVA and completing hosue work, working and driving. Patient's and spouse are "semi retired" so he would be available to be home with her during the day and both can stop working. Plan is in next couple months to sell their home and move in with son in [place] into their 5 bedroom home. Their room would be on first floor and no SKIP at new house but NOT discharge location at this time. 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 Objective General Visit Information: Precautions:Precautions LE Weight Bearing Status: WBAT Medical Precautions: SBP < 140 mmHg per neurology Braces Applied: abdominal binder for PEG tube General Assessments:Orientation: Oriented x 4 (assessment limited due to dysarthria and assistning in answering questions but patient is able to answer questions accurately when asked directly as confirmed answers) Affect/Behavior: Calm, Cooperative Basic Command Following: Intact Safety/Judgment: Intact Activity Tolerance Activity ToleranceSitting Balance: Supports self with more than 50% effort using upper extremity, requires therapist assistance Early Mobility/Exercise Safety Screen: Proceed with mobilization - No exclusion criteria met Sensation SensationLight Touch: RLE Not tested, LLE Not tested (Due to time constraints, formal sesantion assessment not completed and should be completed in upcoming treatment session) Deep Pressure: LLE Not tested, RLE Not tested (Due to time constraints, formal sesantion assessment not completed and should be completed in upcoming treatment session) Kinesthesia: LLE Not tested, RLE Not tested (Due to time constraints, formal sesantion assessment not completed and should be completed in upcoming treatment session) Perception PerceptionInattention/Neglect: Cues to attend left visual field Initiation: Cues to initiate tasks Motor Planning: Cues to use objects appropriately (seen in completing mutli step process) Perseveration: Not present Balance- SittingStatic Sitting-Balance Support: With one UE support Level of Assistance: Partial/Mod assistance Sitting Surface: Bed Functional Assessments:Bed Mobility: Roll Left and RightAssistance Needed: Physical assistance Physical Assistance Level: 25% or less Comment: verbal cuing for sequencing and use of bedrails to help pull herself--physical asisst to manage L LE/UE CARE Score - Roll Left and Right: 3 Roll Left and Right Discharge GoalDischarge Goal: Independent Lying to Sitting on Side of BedAssistance Needed: Physical assistance Physical Assistance Level: 25% or less Comment: assistance to right trunk and push up towards R side CARE Score - Lying to Sitting on Side of Bed: 3 Lying to Sitting on Side of Bed Discharge GoalDischarge Goal: Supervision or touching assistance Sit to LyingAssistance Needed: Physical assistance Physical Assistance Level: 26%-50% Comment: physical assist to bring LE onto bed and hand to manage trunk and verbal cues for sequencing CARE Score - Sit to Lyin Sit to Lying Discharge GoalDischarge Goal: Supervision or touching assistance Transfers: Chair/Fim-dp-Xaxqu TransferAssistance Needed: Physical assistance Physical Assistance Level: 26%-50% Comment: modA squat pivot--can be Juancho towards R but on L requires cuing to let go of arm rest and use R UE to push self forward CARE Score - Chair/Ivs-od-Uvrii Transfer: 3 Chair/Mqx-yp-Xclle Transfer Discharge GoalDischarge Goal: Partial/moderate assistance Sit to StandAssistance Needed: Physical assistance Physical Assistance Level: 25% or less Comment: with paris walker on R and verbal cuing to lean forward and physical asisst to lift hips CARE Score - Sit to Stand: 3 Sit to Stand Discharge GoalDischarge Goal: Supervision or touching assistance Car TransferReason if not Attempted: Environmental limitations CARE Score - Car Transfer: 10 Car Transfer Discharge GoalDischarge Goal: Not attempted due to environmental limitations Ambulation:Walk 10 Feet Reason if not Attempted: Safety concerns CARE Score - Walk 10 Feet: 88 Walk 10 Feet Discharge GoalDischarge Goal: Not attempted due to medical/safety concerns Walk 50 Feet with Two TurnsReason if not Attempted: Safety concerns CARE Score - Walk 50 Feet with Two Turns: 88 Walk 50 Feet with Two Turns Discharge GoalDischarge Goal: Not attempted due to medical/safety concerns Walk 150 FeetReason if not Attempted: Safety concerns CARE Score - Walk 150 Feet: 88 Walk 150 Feet Discharge GoalDischarge Goal: Not attempted due to medical/safety concerns Walking 10 Feet on Uneven SurfacesReason if not Attempted: Safety concerns CARE Score - Walking 10 Feet on Uneven Surfaces: 88 Walking 10 Feet on Uneven Surfaces Discharge GoalDischarge Goal: Not attempted due to medical/safety concerns Stairs: Picking Up ObjectReason if not Attempted: Safety concerns CARE Score - Picking Up Object: 88 Picking Up Object Discharge GoalDischarge Goal: Not attempted due to medical/safety concerns 1 Step (Curb)Reason if not Attempted: Safety concerns CARE Score - 1 Step (Curb): 88 1 Step (Curb) Discharge GoalDischarge Goal: Not attempted due to medical/safety concerns 4 StepsReason if not Attempted: Safety concerns CARE Score - 4 Steps: 88 4 Steps Discharge GoalDischarge Goal: Not attempted due to medical/safety concerns 12 StepsReason if not Attempted: Safety concerns CARE Score - 12 Steps: 88 12 Steps Discharge GoalDischarge Goal: Not attempted due to medical/safety concerns Wheelchair Propulsion: Wheel 50 Feet with Two TurnsAssistance Needed: Physical assistance Physical Assistance Level: Total assistance CARE Score - Wheel 50 Feet with Two Turns: 1 Type of Wheelchair/Scooter: Manual Wheel 50 Feet with Two Turns Discharge GoalDischarge Goal: Supervision or touching assistance Wheel 150 FeetAssistance Needed: Physical assistance Physical Assistance Level: Total assistance CARE Score - Wheel 150 Feet: 1 Type of Wheelchair/Scooter: Manual Extremity Assessments:Right Lower Extremity RLE Assessment RLE Assessment: Within Functional Limits Left Lower Extremity LLE AssessmentLLE Assessment: Exceptions to WFL Strength LLEL Hip Flexion: 2-/5 L Hip ABduction: 3-/5 L Knee Flexion: 3/5 L Knee Extension: 2+/5 L Ankle Dorsiflexion: 1/5 L Ankle Plantar Flexion: 3-/5 Quality Indicators:Prior Functioning: Everyday Activities Indoor Mobility (Ambulation): Independent Stairs: Independent Prior Device Use: None of the given options Patient Education:Education Documentation No documentation found. Education Comments No comments found. Goals:Encounter Goals Encounter Goals (Active) Rolling: mod-independent Start: 07/23/24 Expected End: 08/13/24 Lying<>Sitting<>Lying: CGA/supervision with paris technique Start: 07/23/24 Expected End: 08/13/24 Pt will participate in pre-gait activities emphasizing B LE activation, proper sequencing, midline orientation, reciprocal movements, and controlled WS to facilitate safe gait training. Start: 07/23/24 Expected End: 08/13/24 Within 2 weeks of starting therapy, the patient and/or family/caregiver will demonstrate independence and be compliant in a written HEP in order to maximize gains made during therapy. Start: 07/23/24 Expected End: 08/13/24 Pt and/or caregiver(s) will have all appropriate DME, recommendations, or completed prescriptions to maximize pt's safety and independence at discharge. Start: 07/23/24 Expected End: 08/13/24 Transfers: Juancho stand step with LRAD Start: 07/23/24 Expected End: 08/13/24 Sit to Stand: CGA with LRAD Start: 07/23/24 Expected End: 08/13/24 Pt will be able to sit for at least 5 mins with support of no UE with midline orientation, erect posture, even KATY, appropriate WBing and ability to reach > 5" outside KATY without LOB to facilitate improved standing to return to functional tasks. Start: 07/23/24 Expected End: 08/13/24 Patient able to propel WC ~300ft supervision with B LE propulsion with appropriate safety awareness, midline orientation, and obstacle avoidance to facilitate safe community mobility. Start: 07/23/24 Expected End: 08/13/24 Ange Soler PT CAL RECEPTIONIST * Alber Alejandra - 07/23/2024 11:50 AM MEDICAL RECEPTIONIST Functional Maintenance Mobility: RN requested Lift Team assistance. Pt was assisted to transfer from bedsidechair B2B via SPT. Pt was safely left under care of RN. Alber Henleylectronically signed by Alber Alejandra at 07/23/2024 5:18 PM MEDICAL RECEPTIONIST * Myrtle Francisco PTA - 07/23/2024 9:00 AM MEDICAL RECEPTIONIST Treatment Session Note Patient Name: Toney Martel Today's Date: 07/23/2024 Preferred Language: Guamanian Assessment & Plan Assessment: Pt able to participate in pre-gait training, practiced side steps @ EOB and performed one bed to chair transfer. Plan: PT Discharge Recommendations: Inpatient rehab facility placement Aurea Cary RN cleared pt for skilled PT intervention. Pt received supine in bed, no one visiting at b/s, pt pleasant and agreed to participate in treatment. Pt left supine in bed, VSS, pt in NAD, all needs in reach, RN notified of status/end of visit. Objective Objective PT Last Visit PT Received On: 07/23/24 Activity Tolerance: Endurance: Tolerates 30 min exercise with multiple rests Sitting Balance: Supports self with more than 50% effort using upper extremity, requires therapist assistance Cognition Orientation Level: Oriented X4 Treatment Therapeutic activity: Therapeutic Activity Therapeutic Activity 1: Static standing balance Therapeutic Activity 2: Static sitting balance Therapeutic Activity 3: Side steps @ EOB Therapeutic Activity 4: STS practice Therapeutic Activity 5: Bed to chair transfers Bed Mobility: Bed Mobility 1: Level of Assistance 1: Partial/Mod assistance Bed Mobility To/From: Roll left/right, Sitting EOB to supine, Supine to sit on EOB Assistive Devices And Adaptive Equipments: Bed rail Transfers: Transfers 1: Technique 1: Stand pivot, Stand step Level of Assistance 1: Partial/Mod assistance Trials/Comments 1: (B)MUSSEL OPENER Transfer To/From: Bed, Chair, [id number]/[id number] Assistive Devices And Adaptive Equipments: No device AM-PAC Basic Mobility: AM-PAC Basic Mobility Inpatient Turning in bed without bedrails: A Lot Lying on back to sitting on edge of flat bed: A Lot Bed to chair: A Lot Standing up from chair: A Little Walk in room: A Lot Climbing 3-5 stairs: A Lot Mobility Inpatient Raw Score: 13 JH-HLM Goal: 4 Mobility: Highest Level of Mobility Performed (JH-HLM) JH-HLM Goal: 4 Treatment Note: If this is the last documented treatment, then it will signify discharge from acute care prior to discharge from the therapy service and will serve as the discharge summary. Myrtle Francisco PTA [facility]2025-02-07 14:40:21Upcoming Encounters Scheduled Orders Name Type Priority Associated Diagnoses Orde r Schedule Complete Blood Count w/Diff and Platelet Lab Routine Every Friday and for 30 Occurrences starting 07/26/2024 until 11/04/2024, 6 completed Comprehensive Metabolic Panel Lab Routine Every Friday and for 30 Occurrences starting 07/26/2024 until 11/04/2024, 6 completed Phosphorus Level Lab Routine Every Mo and for 30 Occurrences starting 07/26/2024 until 11/04/2024, 6 completed Magnesium Level Lab Routine Every Fri and for 30 Occurrences starting 07/26/2024 until 11/04/2024, 6 completed Scheduled Referrals Name Type Priority Associated Diagnoses Order Schedule Ambulatory referral to Home Health Outpatient Referral Routine Cerebrovascular accident (CVA) due to other mechanism (HCC) Primary hypertension Dysarthria Oropharyngeal dysphagia Ordered: 07/29/2024 Health Maintenance Due Date Last Done Comments Bone Density Scan 1945 Respiratory Syncytial Virus (RSV) or >=60 (1 - 1-dose 75+ series) 11/16/2019 Medicare Annual Wellness (AWV) 07/21/2020 06/21/2019 Annual Physical 10/02/2022 10/02/2021 Influenza Vaccine (#1) 2024 , 06/13/2020, 05/26/2019 Lipid Panel 07/15/2029 07/15/2024 DTaP/Tdap/Td Vaccines (4 - T d or Tdap) 10/16/2031 10/15/2021, 10/15/2021, 02/04/2010 Pneumococcal Vaccine: 65+ Years Completed 06/21/2019, 02/04/2010 Zoster Vaccines Completed 10/08/2019, 08/09/2019, 02/04/2010 HIB Vaccines Aged Out No longer eligi ble based on patient's age to complete this topic HPV Vaccines Aged Out No longer eligi ble based on patient's age to complete this topic Hepatitis A Vaccines Aged Out No long er eligible based on patient's age to complete this topic Hepatitis B Vaccines Aged Out No long er eligible based on patient's age to complete this topic IPV Vaccines Aged Out No longer eligi ble based on patient's age to complete this topic Meningococcal Vaccine Aged Out No lulú imani eligible based on patient's age to complete this topic Rotavirus Vaccines Aged Out No longer eligible based on patient's age to complete this topic [id number] 14:40:21 Diagnosis CVA (cerebrovascular accident due to intracerebral hemorrhage) (HCC) - Primary Intracerebral hemorrhage Cerebrovascular accident (CV A) due to other mechanism (HCC) CVA (cerebrovascular accident due to intracerebral hemorrhage) (HCC) Intracerebral hemorrhage Primary hypertension Unspecified essential hypertension Dysarthria Oropharyngeal dysphagia Dysphagia, oropharyngeal phase Cognitive communication defi cit Primary hypertension Unspecified essential hypertension Hyperlipidemia Other and unspecified hyperlipidemia Dysarthria Dysphagia Hemiplegia (CMS/HCC) (HCC) Unspecified hemiplegia affecting unspecified side [id number] 14:40:21 [place] [id number] 14:40:21* Home Health (Routine) - Pending Review Specialty Diagnoses / Procedures Referred By Aysha valdes Referred To Contact Home Health Services Diagnoses Cerebrovascular accident (CVA) due to other mechanism (HCC) Primary hypertension Dysarthria Oropharyngeal dysphagia Salomon Rubio DO [address] [facility] [address] [place] [address] Phone: tel: fax: Referral ID Status Reason Start Date Expiration Date Visits Requested Visits Authorized [id number] Pending Review Consult and Treat 07/29/2024 09/27/[id number] [facility]2025-02-07 14:34:35 Pt was alert and stable at the time of discharge. Her son and were her ride home. They left with all of her belongings. . [facility]2025-02-07 14:29:58 Discharge instructions were reviewed with the Pt's son and he verbalized his understanding. Extra drain gauzes and tube feed syringe were provided. [place] [id number] 03:40:07 The patient is Moderately Stable - Low risk of patient condition declining or worsening The patient's goals for the shift include free from falls The clinical goals for the shift include fall prevention Over the shift, the patient did not make progress toward the following goals. Barriers to progression include . Recommendations to address these barriers include Problem: Knowledge Deficit Goal: Patient/family/caregiver demonstrates understanding of disease process, treatment plan, medications, and discharge instructions Outcome: Ongoing Problem: Potential for Falls Goal: I will remain free of falls Outcome: Ongoing . RO Kim2025-02-06 19:44:36 The patient is Moderately Stable - Low risk of patient condition declining or worsening The patient's goals for the shift include free from falls The clinical goals for the shift include fall prevention Problem: Knowledge Deficit Goal: Patient/family/caregiver demonstrates understanding of disease process, treatment plan, medications, and discharge instructions Outcome: Progressing Problem: Potential for Falls Goal: I will remain free of falls Outcome: Progressing Problem: Communication/Dysarthria Goal: LTG - Patient will utilize compensatory intervention for intelligibility Outcome: Progressing Goal: STG - Patient will use speech intelligibility Intervention at conversational level Outcome: Progressing Problem: Neurological Deficit Goal: Neurological status is stable or improving Outcome: Progressing Goal: Maintain vital signs within ordered limits Outcome: Progressing Goal: Oxygenation goal greater than 94% Outcome: Progressing Problem: Activity Intolerance/Impaired Mobility Goal: Mobility/activity is maintained at optimum level for patient Outcome: Progressing Goal: Maintains or returns to baseline bowel function Outcome: Progressing Goal: Maintains or returns to baseline bladder function Outcome: Progressing Problem: Communication Impairment Goal: Ability to express needs and understand communication Outcome: Progressing Problem: Potential for Aspiration Goal: Non-ventilated patient's risk of aspiration is minimized Outcome: Progressing Goal: Ventilated patient's risk of aspiration is minimized Outcome: Progressing Problem: Infection Goal: Signs and symptoms of infections are decreased or avoided Outcome: Progressing Goal: Oral health is maintained or improved Outcome: Progressing Problem: Nutrition Goal: Nutritional status is improving Outcome: Progressing Problem: Thrombolytic Therapy Goal: Monitor for angioedema Outcome: Progressing Goal: Monitor for bleeding for 48 hours post tenectaplase/interventional procedures Outcome: Progressing Problem: Bleeding Precautions Goal: Excessive bleeding will be minimized Outcome: Progressing [facility] RECEPTIONIST Maureen Kim2025-02-06 03:02:23 The patient is Moderately Unstable - Medium risk of patient condition declining or worsening The patient's goals for the shift include free from falls The clinical goals for the shift include fall prevention Over the shift, the patient did not make progress toward the following goals. Barriers to progression include. Recommendations to address these barriers include. [facility]2025-02-05 18:56:07 The patient is Moderately Stable - Low risk of patient condition declining or worsening The patient's goals for the shift include doing therapy and get better The clinical goals for the shift include fall prevention Over the shift, the patient did not make progress toward the following goals. Barriers to progression include . Recommendations to address these barriers include . [facility]2025-02-05 01:10:00 The patient is Moderately Stable - Low risk of patient condition declining or worsening The patient's goals for the shift include remain free of falls and safety precautions. The clinical goals for the shift include Safety Precautions Over the shift, the patient did not make progress toward the following goals. Barriers to progression include Problem: Knowledge Deficit Goal: Patient/family/caregiver demonstrates understanding of disease process, treatment plan, medications, and discharge instructions Outcome: Progressing Problem: Potential for Falls Goal: I will remain free of falls Outcome: Progressing Problem: Communication/Dysarthria Goal: LTG - Patient will utilize compensatory intervention for intelligibility Outcome: Progressing . Recommendations to address these barriers include . [facility]2025-02-04 14:57:15 The patient is Moderately Unstable - Medium risk of patient condition declining or worsening The patient's goals for the shift include Safety precautions The clinical goals for the shift include Pain control and safety Precautions Problem: Knowledge Deficit Goal: Patient/family/caregiver demonstrates understanding of disease process, treatment plan, medications, and discharge instructions Outcome: Progressing Problem: Potential for Falls Goal: I will remain free of falls Outcome: Progressing Problem: Communication/Dysarthria Goal: LTG - Patient will utilize compensatory intervention for intelligibility Outcome: Progressing Goal: STG - Patient will use speech intelligibility Intervention at conversational level Outcome: Progressing Problem: Neurological Deficit Goal: Neurological status is stable or improving Outcome: Progressing Goal: Maintain vital signs within ordered limits Outcome: Progressing Goal: Oxygenation goal greater than 94% Outcome: Progressing Problem: Activity Intolerance/Impaired Mobility Goal: Mobility/activity is maintained at optimum level for patient Outcome: Progressing Goal: Maintains or returns to baseline bowel function Outcome: Progressing Goal: Maintains or returns to baseline bladder function Outcome: Progressing Problem: Communication Impairment Goal: Ability to express needs and understand communication Outcome: Progressing Problem: Potential for Aspiration Goal: Non-ventilated patient's risk of aspiration is minimized Outcome: Progressing Goal: Ventilated patient's risk of aspiration is minimized Outcome: Progressing Problem: Infection Goal: Signs and symptoms of infections are decreased or avoided Outcome: Progressing Goal: Oral health is maintained or improved Outcome: Progressing Problem: Nutrition Goal: Nutritional status is improving Outcome: Progressing Problem: Thrombolytic Therapy Goal: Monitor for angioedema Outcome: Progressing Goal: Monitor for bleeding for 48 hours post tenectaplase/interventional procedures Outcome: Progressing Problem: Bleeding Precautions Goal: Excessive bleeding will be minimized Outcome: Progressing RO [facility] [id number] 01:01:00 The patient is Moderately Stable - Low risk of patient condition declining or worsening The patient's goals for the shift include Safety precautions The clinical goals for the shift include Pain control and safety Precautions Over the shift, the patient did not make progress toward the following goals. Barriers to progression included. Recommendations to address these barriers include . RO [facility] [id number] 14:01:15 The patient is Moderately Unstable - Medium risk of patient condition declining or worsening The patient's goals for the shift include rest The clinical goals for the shift include fall prevention Problem: Knowledge Deficit Goal: Patient/family/caregiver demonstrates understanding of disease process, treatment plan, medications, and discharge instructions Outcome: Progressing Problem: Potential for Falls Goal: I will remain free of falls Outcome: Progressing Problem: Communication/Dysarthria Goal: LTG - Patient will utilize compensatory intervention for intelligibility Outcome: Progressing Goal: STG - Patient will use speech intelligibility Intervention at conversational level Outcome: Progressing Problem: Neurological Deficit Goal: Neurological status is stable or improving Outcome: Progressing Goal: Maintain vital signs within ordered limits Outcome: Progressing Goal: Oxygenation goal greater than 94% Outcome: Progressing Problem: Activity Intolerance/Impaired Mobility Goal: Mobility/activity is maintained at optimum level for patient Outcome: Progressing Goal: Maintains or returns to baseline bowel function Outcome: Progressing Goal: Maintains or returns to baseline bladder function Outcome: Progressing Problem: Communication Impairment Goal: Ability to express needs and understand communication Outcome: Progressing Problem: Potential for Aspiration Goal: Non-ventilated patient's risk of aspiration is minimized Outcome: Progressing Goal: Ventilated patient's risk of aspiration is minimized Outcome: Progressing Problem: Infection Goal: Signs and symptoms of infections are decreased or avoided Outcome: Progressing Goal: Oral health is maintained or improved Outcome: Progressing Problem: Nutrition Goal: Nutritional status is improving Outcome: Progressing Problem: Thrombolytic Therapy Goal: Monitor for angioedema Outcome: Progressing Goal: Monitor for bleeding for 48 hours post tenectaplase/interventional procedures Outcome: Progressing Problem: Bleeding Precautions Goal: Excessive bleeding will be minimized Outcome: Progressing [facility]2025-02-03 07:15:07 The patient is Moderately Stable - Low risk of patient condition declining or worsening The patient's goals for the shift include Rest The clinical goals for the shift include fall precaution and pain management Over the shift, the patient did not make progress toward the following goals. Barriers to progression include . Recommendations to address these barriers include . [facility]04 The patient is Moderately Stable - Low risk of patient condition declining or worsening The patient's goals for the shift include comfort The clinical goals for the shift include fall precaution Problem: Knowledge Deficit Goal: Patient/family/caregiver demonstrates understanding of disease process, treatment plan, medications, and discharge instructions Outcome: Progressing Problem: Potential for Falls Goal: I will remain free of falls Outcome: Progressing Problem: Communication/Dysarthria Goal: LTG - Patient will utilize compensatory intervention for intelligibility Outcome: Progressing Goal: STG - Patient will use speech intelligibility Intervention at conversational level Outcome: Progressing Problem: Neurological Deficit Goal: Neurological status is stable or improving Outcome: Progressing Goal: Maintain vital signs within ordered limits Outcome: Progressing Goal: Oxygenation goal greater than 94% Outcome: Progressing Problem: Activity Intolerance/Impaired Mobility Goal: Mobility/activity is maintained at optimum level for patient Outcome: Progressing Goal: Maintains or returns to baseline bowel function Outcome: Progressing Goal: Maintains or returns to baseline bladder function Outcome: Progressing Problem: Communication Impairment Goal: Ability to express needs and understand communication Outcome: Progressing Problem: Potential for Aspiration Goal: Non-ventilated patient's risk of aspiration is minimized Outcome: Progressing Goal: Ventilated patient's risk of aspiration is minimized Outcome: Progressing Problem: Infection Goal: Signs and symptoms of infections are decreased or avoided Outcome: Progressing Goal: Oral health is maintained or improved Outcome: Progressing Problem: Nutrition Goal: Nutritional status is improving Outcome: Progressing Problem: Thrombolytic Therapy Goal: Monitor for angioedema Outcome: Progressing Goal: Monitor for bleeding for 48 hours post tenectaplase/interventional procedures Outcome: Progressing Problem: Bleeding Precautions Goal: Excessive bleeding will be minimized Outcome: Progressing [facility]2025-02-01 17:51:50 The patient is Moderately Stable - Low risk of patient condition declining or worsening The patient's goals for the shift include comfort The clinical goals for the shift include fall precautions Problem: Knowledge Deficit Goal: Patient/family/caregiver demonstrates understanding of disease process, treatment plan, medications, and discharge instructions Outcome: Progressing Problem: Potential for Falls Goal: I will remain free of falls Outcome: Progressing Problem: Communication/Dysarthria Goal: LTG - Patient will utilize compensatory intervention for intelligibility Outcome: Progressing Goal: STG - Patient will use speech intelligibility Intervention at conversational level Outcome: Progressing Problem: Neurological Deficit Goal: Neurological status is stable or improving Outcome: Progressing Goal: Maintain vital signs within ordered limits Outcome: Progressing Goal: Oxygenation goal greater than 94% Outcome: Progressing Problem: Activity Intolerance/Impaired Mobility Goal: Mobility/activity is maintained at optimum level for patient Outcome: Progressing Goal: Maintains or returns to baseline bowel function Outcome: Progressing Goal: Maintains or returns to baseline bladder function Outcome: Progressing Problem: Communication Impairment Goal: Ability to express needs and understand communication Outcome: Progressing Problem: Potential for Aspiration Goal: Non-ventilated patient's risk of aspiration is minimized Outcome: Progressing Goal: Ventilated patient's risk of aspiration is minimized Outcome: Progressing Problem: Infection Goal: Signs and symptoms of infections are decreased or avoided Outcome: Progressing Goal: Oral health is maintained or improved Outcome: Progressing Problem: Nutrition Goal: Nutritional status is improving Outcome: Progressing Problem: Thrombolytic Therapy Goal: Monitor for angioedema Outcome: Progressing Goal: Monitor for bleeding for 48 hours post tenectaplase/interventional procedures Outcome: Progressing Problem: Bleeding Precautions Goal: Excessive bleeding will be minimized Outcome: Progressing [facility]2025-02-01 05:05:37 The patient is Moderately Unstable - Medium risk of patient condition declining or worsening The patient's goals for the shift include comfort The clinical goals for the shift include fall precautions Over the shift, the patient did not make progress toward the following goals. Barriers to progression include. Recommendations to address these barriers include. [facility]2025-01-31 15:27:11 The patient is Moderately Unstable - Medium risk of patient condition declining or worsening The patient's goals for the shift include comfort The clinical goals for the shift include fall precautions Over the shift, the patient did not make progress toward the following goals. Barriers to progression include safety. Recommendations to address these barriers include safety. [facility]2025-01-31 11:13:51 The patient is Moderately Unstable - Medium risk of patient condition declining or worsening The patient's goals for the shift include comfort The clinical goals for the shift include fall precaution Over the shift, the patient did not make progress toward the following goals. Barriers to progression include Safety. Recommendations to address these barriers include safety. [facility]2025-01-30 07:44:33 Problem: Knowledge Deficit Goal: Patient/family/caregiver demonstrates understanding of disease process, treatment plan, medications, and discharge instructions Outcome: Progressing Problem: Potential for Falls Goal: I will remain free of falls Outcome: Progressing Problem: Communication/Dysarthria Goal: LTG - Patient will utilize compensatory intervention for intelligibility Outcome: Progressing Goal: STG - Patient will use speech intelligibility Intervention at conversational level Outcome: Progressing Problem: Neurological Deficit Goal: Neurological status is stable or improving Outcome: Progressing Goal: Maintain vital signs within ordered limits Outcome: Progressing Goal: Oxygenation goal greater than 94% Outcome: Progressing Problem: Activity Intolerance/Impaired Mobility Goal: Mobility/activity is maintained at optimum level for patient Outcome: Progressing Goal: Maintains or returns to baseline bowel function Outcome: Progressing Goal: Maintains or returns to baseline bladder function Outcome: Progressing Problem: Communication Impairment Goal: Ability to express needs and understand communication Outcome: Progressing Problem: Potential for Aspiration Goal: Non-ventilated patient's risk of aspiration is minimized Outcome: Progressing Goal: Ventilated patient's risk of aspiration is minimized Outcome: Progressing Problem: Infection Goal: Signs and symptoms of infections are decreased or avoided Outcome: Progressing Goal: Oral health is maintained or improved Outcome: Progressing Problem: Nutrition Goal: Nutritional status is improving Outcome: Progressing Problem: Thrombolytic Therapy Goal: Monitor for angioedema Outcome: Progressing Goal: Monitor for bleeding for 48 hours post tenectaplase/interventional procedures Outcome: Progressing Problem: Bleeding Precautions Goal: Excessive bleeding will be minimized Outcome: Progressing The patient is Moderately Stable - Low risk of patient condition declining or worsening The patient's goals for the shift include Pt's comfort The clinical goals for the shift include fall precaution Over the shift, the patient did not make progress toward the following goals. Barriers to progression include . Recommendations to address these barriers include . [facility]07 Problem: Knowledge Deficit Goal: Patient/family/caregiver demonstrates understanding of disease process, treatment plan, medications, and discharge instructions Outcome: Progressing Problem: Potential for Falls Goal: I will remain free of falls Outcome: Progressing Problem: Communication/Dysarthria Goal: LTG - Patient will utilize compensatory intervention for intelligibility Outcome: Progressing Goal: STG - Patient will use speech intelligibility Intervention at conversational level Outcome: Progressing Problem: Neurological Deficit Goal: Neurological status is stable or improving Outcome: Progressing Goal: Maintain vital signs within ordered limits Outcome: Progressing Goal: Oxygenation goal greater than 94% Outcome: Progressing Problem: Activity Intolerance/Impaired Mobility Goal: Mobility/activity is maintained at optimum level for patient Outcome: Progressing Goal: Maintains or returns to baseline bowel function Outcome: Progressing Goal: Maintains or returns to baseline bladder function Outcome: Progressing Problem: Communication Impairment Goal: Ability to express needs and understand communication Outcome: Progressing Problem: Potential for Aspiration Goal: Non-ventilated patient's risk of aspiration is minimized Outcome: Progressing Goal: Ventilated patient's risk of aspiration is minimized Outcome: Progressing Problem: Infection Goal: Signs and symptoms of infections are decreased or avoided Outcome: Progressing Goal: Oral health is maintained or improved Outcome: Progressing Problem: Nutrition Goal: Nutritional status is improving Outcome: Progressing Problem: Thrombolytic Therapy Goal: Monitor for angioedema Outcome: Progressing Goal: Monitor for bleeding for 48 hours post tenectaplase/interventional procedures Outcome: Progressing Problem: Bleeding Precautions Goal: Excessive bleeding will be minimized Outcome: Progressing The patient is Moderately Stable - Low risk of patient condition declining or worsening The patient's goals for the shift include comfort The clinical goals for the shift include safety Over the shift, the patient did not make progress toward the following goals. Barriers to progression include . Recommendations to address these barriers include . [facility]2025-01-28 03:40:14 The patient is Moderately Stable - Low risk of patient condition declining or worsening The patient's goals for the shift include Comfort The clinical goals for the shift include Safety [facility]2025-01-26 22:05:14 The patient is Moderately Stable - Low risk of patient condition declining or worsening The patient's goals for the shift include safety The clinical goals for the shift include fall prevention Over the shift, the patient did make progress toward the following goals. [facility] Marielutbao [id number] 15:26:51 The patient is Moderately Unstable - Medium risk of patient condition declining or worsening The patient's goals for the shift include safety The clinical goals for the shift include fall prevention Problem: Knowledge Deficit Goal: Patient/family/caregiver demonstrates understanding of disease process, treatment plan, medications, and discharge instructions 08/01/2024 1526 by Molly Perrin RN Outcome: Progressing 08/01/2024 1153 by Molly Perrin RN Outcome: Progressing Problem: Potential for Falls Goal: I will remain free of falls 08/01/2024 1526 by Molly Perrin RN Outcome: Progressing 08/01/2024 1153 by Molly Perrin RN Outcome: Progressing Problem: Communication/Dysarthria Goal: LTG - Patient will utilize compensatory intervention for intelligibility 08/01/2024 1526 by Molly Perrin RN Outcome: Progressing 08/01/2024 1153 by Molly Perrin RN Outcome: Progressing Goal: STG - Patient will use speech intelligibility Intervention at conversational level 08/01/2024 1526 by Molly Perrin RN Outcome: Progressing 08/01/2024 1153 by Molly Perrin RN Outcome: Progressing Problem: Neurological Deficit Goal: Neurological status is stable or improving 08/01/2024 1526 by Molly Perrin RN Outcome: Progressing 08/01/2024 1153 by Molly Perrin RN Outcome: Progressing Goal: Maintain vital signs within ordered limits 08/01/2024 1526 by Molly Perrin RN Outcome: Progressing 08/01/2024 1153 by Molly Perrin RN Outcome: Progressing Goal: Oxygenation goal greater than 94% 08/01/2024 1526 by Molly Perrin RN Outcome: Progressing 08/01/2024 1153 by Molly Perrin RN Outcome: Progressing Problem: Activity Intolerance/Impaired Mobility Goal: Mobility/activity is maintained at optimum level for patient 08/01/2024 1526 by Molly Perrin RN Outcome: Progressing 08/01/2024 1153 by Molly Perrin RN Outcome: Progressing Goal: Maintains or returns to baseline bowel function 08/01/2024 1526 by Molly Perrin RN Outcome: Progressing 08/01/2024 1153 by Molly Perrin RN Outcome: Progressing Goal: Maintains or returns to baseline bladder function 08/01/2024 1526 by Molly Perrin RN Outcome: Progressing 08/01/2024 1153 by Molly Perrin RN Outcome: Progressing Problem: Communication Impairment Goal: Ability to express needs and understand communication 08/01/2024 1526 by Molly Perrin RN Outcome: Progressing 08/01/2024 1153 by Molly Perrin RN Outcome: Progressing Problem: Potential for Aspiration Goal: Non-ventilated patient's risk of aspiration is minimized 08/01/2024 1526 by Molly Perrin RN Outcome: Progressing 08/01/2024 1153 by Molly Perrin RN Outcome: Progressing Goal: Ventilated patient's risk of aspiration is minimized 08/01/2024 1526 by Molly Perrin RN Outcome: Progressing 08/01/2024 1153 by Molly Perrin RN Outcome: Progressing Problem: Infection Goal: Signs and symptoms of infections are decreased or avoided 08/01/2024 1526 by Molly Perrin RN Outcome: Progressing 08/01/2024 1153 by Molly Perrin RN Outcome: Progressing Goal: Oral health is maintained or improved 08/01/2024 1526 by Molly Perrin RN Outcome: Progressing 08/01/2024 1153 by Molly Perrin RN Outcome: Progressing Problem: Nutrition Goal: Nutritional status is improving 08/01/2024 1526 by Molly Perrin RN Outcome: Progressing 08/01/2024 1153 by Molly Perrin RN Outcome: Progressing Problem: Thrombolytic Therapy Goal: Monitor for angioedema 08/01/2024 1526 by Molly Perrin RN Outcome: Progressing 08/01/2024 1153 by Molly Perrin RN Outcome: Progressing Goal: Monitor for bleeding for 48 hours post tenectaplase/interventional procedures 08/01/2024 1526 by Molly Perrin RN Outcome: Progressing 08/01/2024 1153 by Molly Perrin RN Outcome: Progressing Problem: Bleeding Precautions Goal: Excessive bleeding will be minimized 08/01/2024 1526 by Molly Perrin RN Outcome: Progressing 08/01/2024 1153 by Molly Perrin RN Outcome: Progressing [place] [id number] 02:55:05 The patient is Moderately Unstable - Medium risk of patient condition declining or worsening The patient's goals for the shift include safety The clinical goals for the shift include fall preventio Over the shift, the patient did not make progress toward the following goals. Barriers to progression include. Recommendations to address these barriers include. [facility]2025-01-25 19:40:00 Patient was in pain/discomfort at time that vitals were taken [place] [id number] 04:11:29 The patient is Moderately Unstable - Medium risk of patient condition declining or worsening The patient's goals for the shift include Safety The clinical goals for the shift include Fall prevention Over the shift, the patient did not make progress toward the following goals. Barriers to progression include. Recommendations to address these barriers include. [place] [id number] 20:47:31 The patient is Moderately Unstable - Medium risk of patient condition declining or worsening The patient's goals for the shift include Safety The clinical goals for the shift include Fall prevention Over the shift, the patient did not make progress toward the following goals. Barriers to progression include safety. Recommendations to address these barriers include safety. [place] [id number] 18:53:56 The patient is Moderately Unstable - Medium risk of patient condition declining or worsening The patient's goals for the shift include Safety The clinical goals for the shift include Fall prevention Over the shift, the patient did not make progress toward the following goals. Barriers to progression include fall. Recommendations to address these barriers include safety. [place] [id number] 03:37:09 The patient is Moderately Unstable - Medium risk of patient condition declining or worsening The patient's goals for the shift include Safety The clinical goals for the shift include Fall prevention Over the shift, the patient did not make progress toward the following goals. Barriers to progression include. Recommendations to address these barriers include. [facility]2025-01-22 20:11:35 The patient is Moderately Stable - Low risk of patient condition declining or worsening The patient's goals for the shift include safety The clinical goals for the shift include fall prevention Over the shift, the patient did not make progress toward the following goals. Barriers to progression include . Recommendations to address these barriers include . [facility]2025-01-21 20:00:00 The patient is The patient's goals for the shift include fall precaution The clinical goals for the shift include pain management Over the shift, the patient did not make progress toward the following goals. Barriers to progression include . Recommendations to address these barriers include . [facility]2025-01-20 20:00:00 The patient is The patient's goals for the shift include safety The clinical goals for the shift include pain managment Over the shift, the patient did not make progress toward the following goals. Barriers to progression include . Recommendations to address these barriers include . [place] [id number] 17:34:43 The patient is Moderately Stable - Low risk of patient condition declining or worsening The patient's goals for the shift include safety The clinical goals for the shift include pain managment Over the shift, the patient did not make progress toward the following goals. Barriers to progression include . Recommendations to address these barriers include . [facility]2025-01-20 03:08:49 The patient is Moderately Unstable - Medium risk of patient condition declining or worsening The patient's goals for the shift include safety The clinical goals for the shift include fall prevention Over the shift, the patient did not make progress toward the following goals. Barriers to progression include. Recommendations to address these barriers include. [facility]2025-01-18 20:00:00 The patient is The patient's goals for the shift include get better The clinical goals for the shift include fall prevention Over the shift, the patient did not make progress toward the following goals. Barriers to progression include . Recommendations to address these barriers include . [place] [id number] 20:00:00 The patient is The patient's goals for the shift include get better The clinical goals for the shift include fall prevention Over the shift, the patient did not make progress toward the following goals. Barriers to progression include . Recommendations to address these barriers include . [facility]2025-01-17 13:23:20 The patient is Moderately Stable - Low risk of patient condition declining or worsening The patient's goals for the shift include The clinical goals for the shift include Over the shift, the patient did not make progress toward the following goals. Barriers to progression include . Recommendations to address these barriers include . [place] [id number] 12:56:42 Unable to print out discharge paper going to inpatient rehab. It thinks that I am discharging to home. [facility]2025-01-17 12:15:48* Consultation (Routine) - Pending Review Specialty Diagnoses / Procedures Referred By Contac t Referred To Contact Gastroenterology Diagnoses Dysphagia, unspecified type Procedures NE OFFICE/OUTPATIENT NEW HIGH MDM 60 MINUTES Roseline Caceres NP [address] [place] [address] Phone: tel: fax: Referral ID Status Reason Start Date Expiration Date Visits Requested Visits Authorized [id number] Pending Review Specialty Services Required 07/23/2024 01/19/2025 1 1 CAL RECEPTIONIST* Consultation (Routine) - Pending Review Specialty Diagnoses / Procedures Referred By Contac t Referred To Contact Neurology Diagnoses Cerebrovascular accident (CVA), unspecified mechanism (HCC) Procedures NE OFFICE/OUTPATIENT NEW HIGH MDM 60 MINUTES Roseline Caceres NP [address] [place] [address] Phone: tel: fax: Referral ID Status Reason Start Date Expiration Date Visits Requested Visits Authorized [id number] Pending Review Specialty Services Required 07/23/2024 01/19/2025 1 1 [id number] 12:15:48* * Auth/Cert (Routine) Specialty Diagnoses / Procedures Referred By Contac t Referred To Contact Diagnoses Stroke, acute, thrombotic (HCC) Procedures NE [facility] IP/OBS CARE SF/LOW MDM 40 MINUTES Lindy Yang MD [address] [facility] [address] [place] [address] Phone: tel: fax: [facility] ([address] [facility]) [address] [place] [address] Phone: tel: Referral ID Status Reason Start Date Expiration Date Visits Re quested Visits Authorized [id number] 1 1 [id number] 12:15:48* Audit-C Score Answer Date of Assessment Author 1 07/15/2024 4:54 PM Leland Luther RN * Intimate Partner Violence Question Answer Date of Assessment Author Within the last year, have you been humiliated or emotionally abused in other ways by your partner or ex-partner? Patient unable to answer 07/15/2024 4:54 PM Leland Brooks RN Within the last year, have you been afraid of your partner or ex-partner? Patient unable to answer 07/15/2024 4:54 PM Leland Brooks RN Within the last year, have you been raped or forced to have any kind of sexual activity by your partner or ex-partner? Patient unable to answer 07/15/2024 4:54 PM Leland Brooks RN Within the last year, have you been kicked, hit, slapped, or otherwise physically hurt by your partner or ex-partner? Patient unable to answer 07/15/2024 4:54 PM Leland Brooks RN * * Calculated C-SSRS Risk Score (Lifetime/Recent) Answer Date of Assessment Author No Risk Indicated 07/15/2024 4:56 PM MEDICAL RECEPTIONIST Leland Youngblood, SAMIRA * [place] Suicide Severity Rating Scale (Screener/Recent Self-Report) Question Answer Date of Assessment Author 1. Wish to be (Past 1 Month) No 07/15/2024 4:56 PM MEDICAL RECEPTIONIST Rg Mays RN 2. Non-Specific Active Suici purnima Thoughts (Past 1 Month) No 07/15/2024 4:56 PM MEDICAL RECEPTIONIST Rolan Mays, SAMIRA 6. Suicidal Behavior (Lifetime) No 4:56 PM MEDICAL RECEPTIONIST Leland Mays, SAMIRA [id number] 12:15:48* Emmanuelle Valdez RN - 07/23/2024 10:59 AM MEDICAL RECEPTIONIST Final Discharge Disposition: Inpatient Rehab Inpatient Rehab Facility (IRF) MOT Received Date and Time: [id number] [facility] Address: [address] [place] [address] Room Number: 454 Nursing Unit for Report: [phone] Accepting MD: Dr. Underwood Accepting Loom Stop Checker: Carol Haile Referral Date: 07/16/2024 Referral Time: 1054 Notification Patient Family SonHardy and spouse Brittany Primary MD/Primary Team Primary nurse Delbert MOT completed and placed on chart/given to primary nurse. Transportation arrangements per patient's primary nurse. Please call After-Hours for discharge issues after 1700. CAL RECEPTIONIST * Loyd Lopez DO - 07/23/2024 7:55 AM MEDICAL RECEPTIONIST PEG Check Patient seen and examined at bedside. PEG in place. PEG Bumper loosened from 4cm to 4.5cm. No evidence of bleeding / induration / discharge around the PEG tube site. Recommendations for use of PEG: - Flush with 20 cc of water before and after use. - Clean area around PEG daily - Change gauze daily for next 2-3 days. - Keep head of bed elevated > 30 degrees while being fed. - PEG will need to remain in place for a minimum of 8 weeks prior to considering removal if later indicated. - Abdominal binder in place at all times if patient is at risk for pulling tubes. - Call a physician if abdominal distention, persistent bleeding, severe pain, and/or signs of infection - PEG tube can continue to be used for medications and feeding Please call GI with any questions or concerns. Loyd Lopez DO Gastroenterology & Hepatology l PGY-5 [facility] CAL RECEPTIONIST * Fely Maxwell OT - 07/22/2024 2:52 PM MEDICAL RECEPTIONIST Treatment Session Note Patient Name: Toney Martel Today's Date: 07/22/2024 Preferred Language: Gu[place]ian Assessment & Plan Pt will benefit from further skilled OT services to increase independence when performing ADL Tasks. Pt demonstrates highly decreased performance of functional tasks and pt with decreased balance when performing functional tasks. Pt with decreased balance when sitting as well as decreased endurance and activity tolerance throughout the session, with increased pushing to the L throughout the session . Pt with decreased performance of functional activity at this time and currently requires mod to max A throughout the session. Pt with no active movement noted in the L UE at this time and fabrication of L UE orthotic performed and pt tolerated well for functional positioning. Overall, pt with decreased performance of grooming, bathing and dressing throughout the session. OT will continue to follow while in house and address the aforementioned deficits. Thanks. Assessment: OT Assessment Results: Impaired ADL status, Impaired upper extremity range of motion, Impaired upper extremity strength, Impaired safe judgment during ADL, Impaired endurance, Impaired fine motor control, Impaired functional mobility, Impaired gross motor control, Impaired IADLs, Impaired right upper extremity, Impaired left upper extremity Prognosis: Good Barriers to Discharge: Safety awareness Evaluation/Treatment Tolerance: Patient limited by fatigue Precautions: Plan: Treatment Plan/Goals Established with Patient/Caregiver: Yes Treatment Interventions: ADL retraining, Continued evaluation, Cognitive reorientation, Neuromuscular reeducation, Orthotic/Orthotic management, UE strengthening/ROM OT Plan: Skilled OT OT Frequency: 3-5 times per week until discharge OT Discharge Recommendations: Inpatient rehab facility placement OT Planned Treatments: Activities of Daily Living, Balance training, Cognitive training, Coordination, Therapeutic exercises, Therapeutic activities, Safety education, Neuromuscular reeducation, Mobility training OT Duration: Discharge SubjectivePt reports "I am feeling better." ObjectiveOT arrives for session, Pt supine in bed and willing to work with therapy throughout. Pt supine in bed upon arrival, OT performs PROM in the L UE throughout the session, pt with wrist in neutral with thumb abducted. OT educated on the purpose of OT and what training will be provided in the coming sessions. Pt able to transition to the EOB with mod A and able to stand with mod A and perform transfer to the bedside chair with mod A. Pt able to participate in NMR tasks throughout the session for the L UE and able to exhibit increased activation in the L UE for functional recvoery throughout the session. Pt sitting in the bedside chair at the end of the session. RN updated. Self Care (ADL):Eating Assistance: Partial/Mod assistance Grooming Assistance: Partial/Mod assistance Bathing Assistance: Partial/Mod assistance LE Dressing Assistance: Partial/Mod assistance Mobility/Transfers:Bed Mobility Bed Mobility 1Level of Assistance 1: Partial/Mod assistance Bed Mobility To/From: Roll lying on back to left, Roll lying on back to right, Supine to sit on EOB Transfer Transfer 1Technique 1: Via walking Level of Assistance 1: Partial/Mod assistance Transfer To/From: Chair TreatmentSelf-Care: Eating Assistance: Partial/Mod assistance Grooming Assistance: Partial/Mod assistance Bathing Assistance: Partial/Mod assistance LE Dressing Assistance: Partial/Mod assistance Bed Mobility: Bed Mobility 1Level of Assistance 1: Partial/Mod assistance Bed Mobility To/From: Roll lying on back to left, Roll lying on back to right, Supine to sit on EOB Transfers: Transfer 1Technique 1: Via walking Level of Assistance 1: Partial/Mod assistance Transfer To/From: Chair AM-PAC Daily Activity:Putting on and taking off regular lower body clothing: A Lot Bathing (including washing, rinsing, drying): A Lot Toileting, which includes using toilet, bedpan or urinal: A Lot Putting on and taking off regular upper body clothing: A Little Taking care of personal grooming such as brushing teeth: A Little Eating Meals: A Little AM-PAC Daily Activity Raw Score: 15 Patient Education: Education Documentation No documentation found. Education Comments No comments found. Goals:Encounter Goals Encounter Goals (Active) Pt will perform LB dressing with mod A. Start: 07/19/24 Expected End: 08/02/24 Pt will demonstrate increased AROM and fine motor task performance in the B UE throughout the session. Start: 07/19/24 Expected End: 08/02/24Ability to perform basic physical tasks and personal care activities. Orthotics as needed for the L UE Start: 07/19/24 Expected End: 08/02/24Ability to perform basic physical tasks and personal care activities. Pt will sit EOB and perform grooming tasks with min A. Start: 07/19/24 Expected End: 08/02/24Ability to perform basic physical tasks and personal care activities. Treatment Note: If this is the last documented treatment, then it will signify discharge from acute care prior to discharge from the therapy service and will serve as the discharge summary. Fely Maxwell OT CAL RECEPTIONIST * Alber Alejandra - 07/22/2024 12:20 PM MEDICAL RECEPTIONIST Functional Maintenance Mobility: RN requested Lift Team assistance. Pt was assisted to transfer from bedsidechair B2B via SPT. Pt was safely left under care of RN. Alber Henleylectronically signed by Alber Alejandra at 07/22/2024 6:25 PM MEDICAL RECEPTIONIST * ELEUTERIO Dejesus - 07/22/2024 9:07 AM MEDICAL RECEPTIONIST Speech-Language Pathology Pt to go for potential PEG today. JAVA SDET will follow up as indicated. CAL RECEPTIONIST * Emmanuelle Valdez RN - 07/22/2024 9:00 AM MEDICAL RECEPTIONIST CASE MANAGEMENT ROUTINE DISCHARGE PLAN NOTE LOS: 7 DISCHARGE PLAN A: IPR 4EJ DISCHARGE PLAN B: Home with hh LAURA: 07/2307/22/24 0900 Discharge Planning Barriers to Discharge Home PEG placement 07/22 Patient expects to be discharged to: 4EJ Expected Discharge Disposition IRF Discharge Planning Comments CM sent 4EJ liason update. Discharge Planning Status Referrals Pending CAL RECEPTIONIST * Roseline Caceres NP - 07/22/2024 6:51 AM MEDICAL RECEPTIONIST History of Present Illness: Toney Martel ( ) with PMH of HTN and carpal tunnel syndrome who presents for evaluation of wake up L sided plegia, LFD and R gaze deviation. LKW 2030 when patient went to bed, woke up at 0815 with difficulty waking up. Exam w/ NIHSS 17 for L sided weakness, sensory, LFD, L homonymous hemianopia, R gaze. CT w/ ASPECTS 6 (internal cap., insula, M5, M6) and possible hyperdense R MCA. CTA w/ R ICA dissection, acute occlusion in R ICA and distal reconstitution of flow in MCA territory but M2 and P-com occlusion. CTP w/ established M5/M6 region stroke, but 48ml volume in posterior parietal and occipital regions. Patient taken for emergent thrombectomy. within WAKE UP protocol window IAT TICI3. MRI showing R MCA/BIOINFORMATICS TECHNICIAN/SHAWANDA strokes. Failed FEEs 07/20, ST recommending PEG tube. GI consulted, PEG planned for 07/22. Subjective NPO for PEG 07/22. Objective Last Recorded Vitals Blood pressure 132/89, pulse 59, temperature 37.2 ?C (99 ?F), resp. rate 21, height 1.575 m (5' 2"), weight 78.4 kg (172 lb 13.5 oz), SpO2 96%. Physical Exam:General: Alert, no discomfort CV: Regular rate and rhythm, no additional heart sounds or murmurs. Lungs: Clear to A&P. No rales, rhonchi, wheezes or rubs. Abd: Soft, non-tender, no guarding, no organomegaly, regular bowel sounds. Extremities: No peripheral edema, well perfused, no lesions. Neuro:Mental Status: Awake and alert; comprehension intact and following all commands. Oriented to self, place, time. Language/Speech: Comprehension, fluency, naming and repetition all intact. Severe dysarthria. CN: II: Pupils equal and symmetric light response, L homonymous hemianopia III/IV/: R gaze deviation V: L sensory deficit VII: Complete L facial palsy VIII: No nystagmus or hearing deficits IX/X/XII: Symmetric uvula/palate and tongue Motor: L arm AG (hemiparesis), L leg antigravity, normal tone Sensory: L dense hemisensory deficit Pertinent Labs :Lab Results Component Value Date WBC 4.31 07/22/2024 Hgb 11.1 07/22/2024 Hct 35.0 07/22/2024 Plt Count 274 07/22/2024 Lab ResultsComponent Value Date Sodium Lvl 143 07/22/2024 Potassium Lvl 4.2 07/22/2024 Chloride Lvl 108 (H) 07/22/2024 CO2 Lvl 27.2 07/22/2024 BUN 26 (H) 07/22/2024 Creatinine Lvl 0.63 07/22/2024 Glucose Lvl 102 (H) 07/22/2024 POC Glu 115 (H) 07/22/2024 aspirin, 81 mg, Oral, Dailyatorvastatin, 80 mg, Nasogastric, Nightly Enteral Free water Flush, 30 mL, Nasogastric, q4h heparin, 5,000 Units, Subcutaneous, q8h melatonin, 6 mg, Nasogastric, Nightly polyethylene glycol (PEG) 3350, 17 g, Per G Tube, BID senna, 5 mL, Per G Tube, q12h [place] @RADIOLOGYFINDINGS@No brain vessel imaging results found for the past [address] head results found for the past 14 days Echo (TTE) completeResult Date: 07/16/2024 Left Ventricle: Left ventricle size is normal. Normal wall motion of left ventricle. Normal systolic function with an estimated EF of 60 - 65%. Normal diastolic function of the left ventricle. Right Ventricle: Right ventricle size is normal. Normal systolic function in the right ventricle. Left Atrium: Left atrium size is normal. Right Atrium: Right atrium size is normal. Pulmonic Valve: Pulmonic valve is structurally normal. No pulmonic valve stenosis present. Tricuspid Valve: Tricuspid valve is structurally normal. Trace tricuspid regurgitation present. RV systolic pressure estimated 46 mmhg, assuming RA pressure 8 mmHg. Mitral Valve: Mitral valve is structurally normal. No mitral regurgitation present. Aortic Valve: Aortic valve is structurally normal. No aortic regurgitation present. No aortic stenosis present. Aorta: Normal sized aortic root, sinus of Valsalva and ascending aorta present. IVC/SVC: IVC diameter is normal. Normal respiratory variation. Pericardium: No pericardial effusion present. MRI brain wo IV contrastResult Date: 07/16/2024 EXAM: MRI BRAIN WITHOUT CONTRAST DATE: 07/16/2024 8:50 IMPRESSION: 1. Extensive areas of recent infarct in the right cerebral hemisphere, including the territory of the right MCA, anterior choroidal artery, and right BIOINFORMATICS TECHNICIAN. 2. Petechial hemorrhagic transformation in the right posterior frontal lobe. Assessment & Plan Acute ischemic right MCA stroke (HCC) Acuity: Acute Suspected Etiology: Large artery atherosclerosis ICH Score and volume on Admission: - CT: ASPECTS 6, hyperdense MCA - CTA: acute occlusion in R ICA and distal reconstitution of flow in MCA territory but M2 and P-com occlusion. - CTP: established M5/M6 region stroke, but 48ml volume in posterior parietal and occipital regions. - Atorvastatin 80 mg daily - ASA 81 mg daily - MRI brain w/o contrast R MCA/BIOINFORMATICS TECHNICIAN infarct - TTE- EF: 60-65%, atrium normal - A1c-5.5, LDL 100 - Blood pressure control SBP <140 - Ordered PT/OT/ST Primary hypertension - BP control, BP <140 Hyperlipidemia - Statin, LDL goal<70 Dysarthria - ST Dysphagia - Plan for PEG with GI on 07/22 - NG, TF Hemiplegia (CMS/HCC) (HCC) - PT/OT Dispo: Pending 4E[facility] Current Diet: NPO Diet LESLIE Murray-BCStroke Team B BLENDING TECHNICIAN [id number] 7-5PM, Please call [phone] after 5PM Case discussed with Dr. Keith who agrees with the plan of care. Cosigned by Richie Keith MD at 07/22/2024 11:08 PM CST CAL RECEPTIONIST CAL RECEPTIONIST Associated attestation - Richie Keith MD - 07/22/2024 11:08 PM MEDICAL RECEPTIONIST STROKE NEUROLOGY ATTENDING ATTESTATION I have personally seen and evaluated the patient on July 22, 2024, and I was present for kiran critical points of the encounter. I have discussed the case with and reviewed the provider note detailed above. I have personally viewed the patient's radiographic studies, laboratory tests, and medications. I agree with the above documented history, exam, assessment and plan. Please see note below for any additions and/or exceptions to the note above. PEG placement today. Encounter took 35 minutes of total cumulative time examining the patient at the bedside and in discussion regarding plan of care and addressing questions and concerns, reviewing the EMR and paper chart, reviewing diagnostic studies, laboratory values, and recommendations. I provided a substantive portion of the care of this patient. I personally performed the MDM for this encounter. Richie Keith MD, MPHAssistant Professor, Vascular Neurology [facility] [place], [place] Richie.[email or web address] [email or web address] [email or web address] Office contact: [phone] Stroke Clinic: [phone] * Fely Maxwell, OT - 07/21/2024 3:08 PM MEDICAL RECEPTIONIST Treatment Session Note Patient Name: Toney Martel Today's Date: 07/21/2024 Preferred Language: Guamanian Assessment & Plan Pt will benefit from further skilled OT services to increase independence when performing ADL Tasks. Pt demonstrates highly decreased performance of functional tasks and pt with decreased balance when performing functional tasks. Pt with decreased balance when sitting as well as decreased endurance and activity tolerance throughout the session, with increased pushing to the L throughout the session . Pt with decreased performance of functional activity at this time and currently requires mod to max A throughout the session. Pt with no active movement noted in the L UE at this time and fabrication of L UE orthotic performed and pt tolerated well for functional positioning. Overall, pt with decreased performance of grooming, bathing and dressing throughout the session. OT will continue to follow while in house and address the aforementioned deficits. Thanks. Assessment: OT Assessment Results: Impaired ADL status, Impaired upper extremity range of motion, Impaired upper extremity strength, Impaired safe judgment during ADL, Impaired endurance, Impaired fine motor control, Impaired functional mobility, Impaired gross motor control, Impaired IADLs, Impaired right upper extremity, Impaired left upper extremity Prognosis: Fair Barriers to Discharge: Safety awareness Evaluation/Treatment Tolerance: Patient limited by fatigue Precautions: Plan: Treatment Plan/Goals Established with Patient/Caregiver: Yes OT Plan: Skilled OT OT Frequency: 3-5 times per week until discharge OT Discharge Recommendations: Inpatient rehab facility placement OT Planned Treatments: Activities of Daily Living, Balance training, Cognitive training, Coordination, Therapeutic exercises, Therapeutic activities, Safety education, Neuromuscular reeducation, Mobility training OT Duration: Discharge Subjective ObjectiveOT arrives for session, Pt supine in bed and willing to work with therapy throughout. Pt supine in bed upon arrival, OT performs PROM in the L UE throughout the session, pt with wrist in neutral with thumb abducted. OT educated on the purpose of OT and what training will be provided in the coming sessions. Pt able to participate in NMR tasks throughout the session for the L UE and able to exhibit increased activation in the L UE for functional recvoery throughout the session. Pt remains supine in bed at the RN updated. Self Care (ADL):Eating Assistance: Substantial/Max assistance Grooming Assistance: Partial/Mod assistance Bathing Assistance: Partial/Mod assistance UE Dressing Assistance: Partial/Mod assistance LE Dressing Assistance: Partial/Mod assistance TreatmentSelf-Care: Eating Assistance: Substantial/Max assistance Grooming Assistance: Partial/Mod assistance Bathing Assistance: Partial/Mod assistance UE Dressing Assistance: Partial/Mod assistance LE Dressing Assistance: Partial/Mod assistance Bed Mobility: Bed Mobility 1Level of Assistance 1: Partial/Mod assistance Bed Mobility To/From: Roll lying on back to left, Roll lying on back to right, Supine to sit on EOB AM-PAC Daily Activity:Putting on and taking off regular lower body clothing: A Lot Bathing (including washing, rinsing, drying): A Lot Toileting, which includes using toilet, bedpan or urinal: A Lot Putting on and taking off regular upper body clothing: A Little Taking care of personal grooming such as brushing teeth: A Little Eating Meals: A Little AM-PAC Daily Activity Raw Score: 15 Patient Education:Education Documentation No documentation found. Education Comments No comments found. Goals:Encounter Goals Encounter Goals (Active) Pt will perform LB dressing with mod A. Start: 07/19/24 Expected End: 08/02/24 Pt will demonstrate increased AROM and fine motor task performance in the B UE throughout the session. Start: 07/19/24 Expected End: 08/02/24Ability to perform basic physical tasks and personal care activities. Orthotics as needed for the L UE Start: 07/19/24 Expected End: 08/02/24Ability to perform basic physical tasks and personal care activities. Pt will sit EOB and perform grooming tasks with min A. Start: 07/19/24 Expected End: 08/02/24Ability to perform basic physical tasks and personal care activities. Treatment Note: If this is the last documented treatment, then it will signify discharge from acute care prior to discharge from the therapy service and will serve as the discharge summary. Fely Maxwell OT CAL RECEPTIONIST * Emmanuelle Valdez RN - 07/21/2024 8:54 AM MEDICAL RECEPTIONIST 07/21/24 0800 Discharge Planning Barriers to Discharge Home NPO, Possible PEG Patient expects to be discharged to: [facility] auth expires 07/28 Expected Discharge Disposition IRF Discharge Planning Comments P2P was approved. CM messaged [facility] liason to inquire Auth date. CM will follow up. Discharge Planning Status Referrals Pending CAL RECEPTIONIST CAL RECEPTIONIST * Roseline Caceres NP - 07/21/2024 6:48 AM MEDICAL RECEPTIONIST History of Present Illness: Toney Martel ( ) with PMH of HTN and carpal tunnel syndrome who presents for evaluation of wake up L sided plegia, LFD and R gaze deviation. LKW 2029 when patient went to bed, woke up at 0815 with difficulty waking up. Exam w/ NIHSS 17 for L sided weakness, sensory, LFD, L homonymous hemianopia, R gaze. CT w/ ASPECTS 6 (internal cap., insula, M5, M6) and possible hyperdense R MCA. CTA w/ R ICA dissection, acute occlusion in R ICA and distal reconstitution of flow in MCA territory but M2 and P-com occlusion. CTP w/ established M5/M6 region stroke, but 48ml volume in posterior parietal and occipital regions. Patient taken for emergent thrombectomy. within WAKE UP protocol window IAT TICI3. MRI showing R MCA/BIOINFORMATICS TECHNICIAN/SHAWANDA strokes. Subjective NAOE, failed FEEs 07/20. Objective Last Recorded Vitals Blood pressure 136/61, pulse 61, temperature 37 ?C (98.6 ?F), resp. rate 20, height 1.575 m (5' 2"), weight 78.4 kg (172 lb 13.5 oz), SpO2 96%. Physical Exam:General: Alert, no discomfort CV: Regular rate and rhythm, no additional heart sounds or murmurs. Lungs: Clear to A&P. No rales, rhonchi, wheezes or rubs. Abd: Soft, non-tender, no guarding, no organomegaly, regular bowel sounds. Extremities: No peripheral edema, well perfused, no lesions. Neuro:Mental Status: Awake and alert; comprehension intact and following all commands. Oriented to self, place, time. Language/Speech: Comprehension, fluency, naming and repetition all intact. Severe dysarthria. CN: II: Pupils equal and symmetric light response, L homonymous hemianopia III/IV/: R gaze deviation V: L sensory deficit VII: Complete L facial palsy VIII: No nystagmus or hearing deficits IX/X/XII: Symmetric uvula/palate and tongue Motor: L arm AG (hemiparesis), L leg antigravity, normal tone Sensory: L dense hemisensory deficit Pertinent Labs :Lab Results Component Value Date WBC 4.58 07/21/2024 Hgb 11.3 07/21/2024 Hct 36.1 07/21/2024 Plt Count 253 07/21/2024 Lab ResultsComponent Value Date Sodium Lvl 143 07/21/2024 Potassium Lvl 4.1 07/21/2024 Chloride Lvl 108 (H) 07/21/2024 CO2 Lvl 27.5 07/21/2024 BUN 25 (H) 07/21/2024 Creatinine Lvl 0.65 07/21/2024 Glucose Lvl 122 (H) 07/21/2024 POC Glu 117 (H) 07/21/2024 aspirin, 81 mg, Oral, Dailyatorvastatin, 80 mg, Nasogastric, Nightly Enteral Free water Flush, 30 mL, Nasogastric, q4h heparin, 5,000 Units, Subcutaneous, q8h melatonin, 6 mg, Nasogastric, Nightly polyethylene glycol (PEG) 3350, 17 g, Per G Tube, BID senna, 5 mL, Per G Tube, q12h SEYMOUR @[email or web address]@No brain vessel imaging results found for the past [address] head results found for the past 14 days Echo (TTE) completeResult Date: 07/16/2024 Left Ventricle: Left ventricle size is normal. Normal wall motion of left ventricle. Normal systolic function with an estimated EF of 60 - 65%. Normal diastolic function of the left ventricle. Right Ventricle: Right ventricle size is normal. Normal systolic function in the right ventricle. Left Atrium: Left atrium size is normal. Right Atrium: Right atrium size is normal. Pulmonic Valve: Pulmonic valve is structurally normal. No pulmonic valve stenosis present. Tricuspid Valve: Tricuspid valve is structurally normal. Trace tricuspid regurgitation present. RV systolic pressure estimated 46 mmhg, assuming RA pressure 8 mmHg. Mitral Valve: Mitral valve is structurally normal. No mitral regurgitation present. Aortic Valve: Aortic valve is structurally normal. No aortic regurgitation present. No aortic stenosis present. Aorta: Normal sized aortic root, sinus of Valsalva and ascending aorta present. IVC/SVC: IVC diameter is normal. Normal respiratory variation. Pericardium: No pericardial effusion present. MRI brain wo IV contrastResult Date: 07/16/2024 EXAM: MRI BRAIN WITHOUT CONTRAST DATE: 07/16/2024 8:50 IMPRESSION: 1. Extensive areas of recent infarct in the right cerebral hemisphere, including the territory of the right MCA, anterior choroidal artery, and right BIOINFORMATICS TECHNICIAN. 2. Petechial hemorrhagic transformation in the right posterior frontal lobe. Assessment & Plan Acute ischemic right MCA stroke (HCC) Acuity: Acute Suspected Etiology: Large artery atherosclerosis ICH Score and volume on Admission: - CT: ASPECTS 6, hyperdense MCA - CTA: acute occlusion in R ICA and distal reconstitution of flow in MCA territory but M2 and P-com occlusion. - CTP: established M5/M6 region stroke, but 48ml volume in posterior parietal and occipital regions. - Atorvastatin 80 mg daily - ASA 81 mg daily - MRI brain w/o contrast R MCA/BIOINFORMATICS TECHNICIAN infarct - TTE- EF: 60-65%, atrium normal - A1c-5.5, LDL 100 - Blood pressure control SBP <140 - Ordered PT/OT/ST Primary hypertension - BP control, BP <140 Hyperlipidemia - Statin, LDL goal<70 Dysarthria - ST Dysphagia - NPO, need rFees today - NG, TF Hemiplegia (CMS/HCC) (HCC) - PT/OT Stroke, acute, thrombotic ([facility]) Dispo: Pending 4EJ Current Diet: NPO Diet LESLIE Murray-BCStroke Team B BLENDING TECHNICIAN [id number] 7-5PM, Please call [phone] after 5PM Case discussed with Dr. Keith who agrees with the plan of care. Cosigned by Richie Keith MD at 07/22/2024 10:23 PM CST CAL RECEPTIONIST CAL RECEPTIONIST Associated attestation - Richie Keith MD - 07/22/2024 10:23 PM MEDICAL RECEPTIONIST AM STROKE NEUROLOGY ATTENDING ATTESTATION I have personally seen and evaluated the patient on July 21, 2024, and I was present for kiran critical points of the encounter. I have discussed the case with and reviewed the provider note detailed above. I have personally viewed the patient's radiographic studies, laboratory tests, and medications. I agree with the above documented history, exam, assessment and plan. Please see note below for any additions and/or exceptions to the note above. Discussed PEG tube placement as patient has now failed FEES x2. Encounter took 35 minutes of total cumulative time examining the patient at the bedside and in discussion regarding plan of care and addressing questions and concerns, reviewing the EMR and paper chart, reviewing diagnostic studies, laboratory values, and recommendations. I provided a substantive portion of the care of this patient. I personally performed the MDM for this encounter. Richie Keith MD, MPHAssistant Professor, Vascular Neurology [employer] Richie.Sagar [email or web address] [email or web address] Office contact: [phone] Stroke Clinic: [phone] * Fely aMxwell, OT - 07/20/2024 2:36 PM MEDICAL RECEPTIONIST Treatment Session Note Patient Name: Toney Martel Today's Date: 07/20/2024 Preferred Language: Guamanian Assessment & Plan Pt will benefit from further skilled OT services to increase independence when performing ADL Tasks. Pt demonstrates highly decreased performance of functional tasks and pt with decreased balance when performing functional tasks. Pt with decreased balance when sitting as well as decreased endurance and activity tolerance throughout the session, with increased pushing to the L throughout the session . Pt with decreased performance of functional activity at this time and currently requires mod to max A throughout the session. Pt with no active movement noted in the L UE at this time and fabrication of L UE orthotic performed and pt tolerated well for functional positioning. Overall, pt with decreased performance of grooming, bathing and dressing throughout the session. OT will continue to follow while in house and address the aforementioned deficits. Thanks. Assessment: OT Assessment Results: Impaired ADL status, Impaired cognition, Impaired endurance, Visual deficit, Impaired fine motor control, Impaired IADLs, Impaired gross motor control, Impaired right upper extremity, Impaired left upper extremity Plan: Treatment Plan/Goals Established with Patient/Caregiver: Yes OT Plan: Skilled OT OT Frequency: 3-5 times per week until discharge OT Discharge Recommendations: Inpatient rehab facility placement OT Planned Treatments: Balance training, Neuromuscular reeducation, Manual therapy, Mobility training, Therapeutic exercises, Therapeutic activities, Coordination OT Duration: Discharge Subjective Pt reports "I am feeling ok." Objective Pt supine in bed upon arrival and OT fabricates L UE orthotic throughout the session for functional positioning to allow for greater neurological recovery. Pt supine in bed at the end of the session. RN updated. Self Care (ADL): Eating Assistance: Substantial/Max assistance Grooming Assistance: Substantial/Max assistance Bathing Assistance: Substantial/Max assistance UE Dressing Assistance: Substantial/Max assistance LE Dressing Assistance: Substantial/Max assistance Toileting Assistance: Substantial/Max assistance TreatmentSelf-Care: Eating Assistance: Substantial/Max assistance Grooming Assistance: Substantial/Max assistance Bathing Assistance: Substantial/Max assistance UE Dressing Assistance: Substantial/Max assistance LE Dressing Assistance: Substantial/Max assistance Toileting Assistance: Substantial/Max assistance Bed Mobility: Orthotics: Orthotics Properties:Orthotics 07/20/24 Left Hand (Active) Placement Date/Time: 07/20/24929 Orthotic Orientation: Left Orthotic Location: Hand Wrist/Hand/Finger Orthotics Design: WHFO Orthotic Type: Static Fabricated or Pre-Fabricated: Custom Orthotics Assessments:Orthotics 07/20/24 Left Hand (Active) Orthotic Details L UE orthotic fabricated for positioning throughout, with wrist in neutral and thumb abducted 07/20/24929 Actions Taken Fabrication 07/20/24929 Orthotic Wearing Schedule 4 hour on, 4 hour off 07/20/24929 Orthotic Purpose Maintain/promote functional positioning 07/20/24929 AM-PAC Daily Activity:Putting on and taking off regular lower body clothing: A Lot Bathing (including washing, rinsing, drying): A Lot Toileting, which includes using toilet, bedpan or urinal: A Lot Putting on and taking off regular upper body clothing: A Lot Taking care of personal grooming such as brushing teeth: A Little Eating Meals: A Little AM-PAC Daily Activity Raw Score: 14 Patient Education:Education Documentation No documentation found. Education Comments No comments found. Goals:Encounter Goals Encounter Goals (Active) Pt will perform LB dressing with mod A. Start: 07/19/24 Expected End: 08/02/24 Pt will demonstrate increased AROM and fine motor task performance in the B UE throughout the session. Start: 07/19/24 Expected End: 08/02/24Ability to perform basic physical tasks and personal care activities. Orthotics as needed for the L UE Start: 07/19/24 Expected End: 08/02/24Ability to perform basic physical tasks and personal care activities. Pt will sit EOB and perform grooming tasks with min A. Start: 07/19/24 Expected End: 08/02/24Ability to perform basic physical tasks and personal care activities. Treatment Note: If this is the last documented treatment, then it will signify discharge from acute care prior to discharge from the therapy service and will serve as the discharge summary. Fely Maxwell OT CAL RECEPTIONIST * Rhina Honeycutt CCC-JAVA SDET - 07/20/2024 2:04 PM MEDICAL RECEPTIONIST [facility] JAVA SDET DYSPHAGIA TREATMENT - FEES ASSIST Patient Name: Toney Martel Today's Date: 07/20/2024 Room: J4[facility].07/.[facility].07 GENERAL INFORMATION: Oxygenation: Room air Behavior: Cooperative Level of Consciousness: Awake & alert Diet Prior to this Study: Temporary Means of Alternative Nutrition & Hydration and NPO Preferred Language: Guamanian TREATMENT SUMMARY: The patient was seen in conjunction with endoscopist for FEES. Trials of Thin, Mildly thick, and Pureed were presented. In the oral phase, patient demonstrated decreased bolus acceptance, anterior loss, bolus holding, decreased bolus formation with oral residue, prolonged oral transit, and posterior loss. For details regarding the pharyngeal phase of swallowing, please see full FEES report. RECOMMENDATIONS: Temporary Means of Alternative Nutrition & Hydration and NPO Please see full FEES report for further diet recommendations. GOALS: Encounter Goals Encounter Goals (Active) Pt will perform LB dressing with mod A. Start: 07/19/24 Expected End: 08/02/24 LTG - Patient will improve on swallowing outcome measure Start: 07/16/24 Expected End: 08/06/24 STG - Participate in an instrumental swallow study Start: 07/16/24 Expected End: 08/06/24 If this is the last documented treatment, then it will signify discharge from acute care prior to discharge from the therapy service and will serve as the discharge summary. Therapy discharge recommendations are made by determining the patient's prior level of function, assessing current function level and establishing rehab potential. The overall discharge plan may be affected by input from Physicians, Care Coordination, medical condition/status, family support and insurance benefits. Rhina Honeycutt CCC-SLP CAL RECEPTIONIST * Anahi Morrow, PT - 07/20/2024 11:52 AM MEDICAL RECEPTIONIST Physical Therapy Treatment Session Note Patient Name: Toney Martel Today's Date: 07/20/2024 Preferred Language: Guamanian Assessment & Plan Assessment: PT Assessment: Pt still w/ no movement to L UE, though able to weightbear on L LE/take steps w/ mod A. PT to continue to follow, rec INTENSE INPATIENT POST ACUTE THERAPY Medical Staff Made Aware: Yes Plan: PT Discharge Recommendations: Inpatient rehab facility placement PT Recommended Transfer Status: (mod A) Subjective Pt lying in bed in NAD, agreeable to therapy. at bedside Pain: 0/10 ObjectiveGeneral Visit Information: PT Last Visit PT Received On: 07/20/24 CognitionOrientation Level: Oriented X4 TreatmentTherapeutic activity: Therapeutic Activity Therapeutic Activity Time Entry: Therapeutic Activity 1: Lines organized, VSS. Pt was assisted to sit EOB w/ mod A, able to dangle w/ CGA. Pt w/ L leaning but able to respond well to verbal cues for midline posture. Pt was able to track to midline w/ max cueing but was unable to cross midline to L. She was assisted to stand w/ mod A, able to bear weight to L LE. She used RW, PT had to provide support at R hand to stay on RW. She was able to take a step forward w/ R foot but unable to advance L. forward. She sat to rest then stood again w/ RW, was able to side step x 2 to L, able to laterally advance L foot. She sat back down to rest then stood once more. Noted pt had BM, PT removed diaper and performed pericare while pt was standing, then pt performed step pivot to bedside chair w/ mod A. She sat in chair, new diaper donned. Lap belt applied for safety, pt was left w/ all needs met, ST at bedside Bed Mobility: Bed Mobility 1:Level of Assistance 1: Substantial/Max assistance Bed Mobility To/From: Supine to sit on EOB Transfers: Transfers 1: Technique 1: Stand step Level of Assistance 1: (mod A) Transfer To/From: Bed, Chair Assistive Devices And Adaptive Equipments: Walker, front-wheeled Outcome Measures: AM-PAC Basic Mobility:AM-PAC Basic Mobility Inpatient Turning in bed without bedrails: A Lot Lying on back to sitting on edge of flat bed: A Lot Bed to chair: A Lot Standing up from chair: A Lot Walk in room: A Lot Climbing 3-5 stairs: A Lot Mobility Inpatient Raw Score: 12 JH-HLM Goal: 4 Mobility: Highest Level of Mobility Performed (JH-HLM)JH-HLM Goal: 4 Modified [place] Patient Education: Education Documentation No documentation found. Education Comments No comments found. Goals:Encounter Goals Encounter Goals (Active) Patient will be mod A w/ bed mobility Start: 07/16/24 Expected End: 07/30/24 Patient will be mod A w/ transfers Start: 07/16/24 Expected End: 07/30/24 Patient will be mod A w/ ambulation 10' w/ LRAD Start: 07/16/24 Expected End: 07/30/24 Pt will perform LB dressing with mod A. Start: 07/19/24 Expected End: 08/02/24 Treatment Note: If this is the last documented treatment, then it will signify discharge from acute care prior to discharge from the therapy service and will serve as the discharge summary. Anahi Morrow PT CAL RECEPTIONIST * Trinidad Will - 07/20/2024 11:30 AM MEDICAL RECEPTIONIST Functional Maintenance Patient Name: Toney Martel Today's Date: 07/20/2024 Mobility: RN requested Lift Team assistance. Pt was assisted to transfer from bedside chair B2B via SPT. Pt was safely left under care of RN. Trinidad Burnom CAL RECEPTIONIST * Emmanuelle Valdez RN - 07/20/2024 9:17 AM MEDICAL RECEPTIONIST 07/20/24 0900 Discharge Planning Barriers to Discharge Home NPO- repeat fees 07/20 Patient expects to be discharged to: [facility]- Pend auth day 2 Expected Discharge Disposition IRF Discharge Planning Comments Pending medical clearance and insurance auth Discharge Planning Status Referrals Pending CAL RECEPTIONIST CAL RECEPTIONIST * Roseline Caceres NP - 07/20/2024 6:56 AM MEDICAL RECEPTIONIST History of Present Illness: Toney Martel ( ) with PMH of HTN and carpal tunnel syndrome who presents for evaluation of wake up L sided plegia, LFD and R gaze deviation. LKW 2029 when patient went to bed, woke up at 0815 with difficulty waking up. Exam w/ NIHSS 17 for L sided weakness, sensory, LFD, L homonymous hemianopia, R gaze. CT w/ ASPECTS 6 (internal cap., insula, M5, M6) and possible hyperdense R MCA. CTA w/ R ICA dissection, acute occlusion in R ICA and distal reconstitution of flow in MCA territory but M2 and P-com occlusion. CTP w/ established M5/M6 region stroke, but 48ml volume in posterior parietal and occipital regions. Patient taken for emergent thrombectomy. within WAKE UP protocol window IAT TICI3. MRI showing R MCA/BIOINFORMATICS TECHNICIAN/SHAWANDA strokes. Subjective NAOE, pending repeat swallow evaluation Objective Last Recorded Vitals Blood pressure 147/60, pulse 60, temperature 37.2 ?C (99 ?F), resp. rate 20, height 1.575 m (5' 2"), weight 78.4 kg (172 lb 13.5 oz), SpO2 97%. Physical Exam:General: Alert, no discomfort CV: Regular rate and rhythm, no additional heart sounds or murmurs. Lungs: Clear to A&P. No rales, rhonchi, wheezes or rubs. Abd: Soft, non-tender, no guarding, no organomegaly, regular bowel sounds. Extremities: No peripheral edema, well perfused, no lesions. Neuro:Mental Status: Awake and alert; comprehension intact and following all commands. Oriented to self, place, time. Language/Speech: Comprehension, fluency, naming and repetition all intact. Severe dysarthria. CN: II: Pupils equal and symmetric light response, L homonymous hemianopia III/IV/: R gaze deviation V: L sensory deficit VII: Complete L facial palsy VIII: No nystagmus or hearing deficits IX/X/XII: Symmetric uvula/palate and tongue Motor: L arm AG (hemiparesis), L leg antigravity, normal tone Sensory: L dense hemisensory deficit Pertinent Labs :Lab Results Component Value Date WBC 4.77 07/20/2024 Hgb 11.0 07/20/2024 Hct 35.1 07/20/2024 Plt Count 221 07/20/2024 Lab ResultsComponent Value Date Sodium Lvl 143 07/20/2024 Potassium Lvl 4.3 07/20/2024 Chloride Lvl 108 (H) 07/20/2024 CO2 Lvl 27.2 07/20/2024 BUN 23 07/20/2024 Creatinine Lvl 0.67 07/20/2024 Glucose Lvl 136 (H) 07/20/2024 POC Glu 141 (H) 07/20/2024 aspirin, 81 mg, Oral, Dailyatorvastatin, 80 mg, Nasogastric, Nightly Enteral Free water Flush, 30 mL, Nasogastric, q4h heparin, 5,000 Units, Subcutaneous, q8h melatonin, 6 mg, Nasogastric, Nightly polyethylene glycol (PEG) 3350, 17 g, Per G Tube, BID senna, 5 mL, Per G Tube, q12h SEYMOUR [email or web address] brain vessel imaging results found for the past [address] head results found for the past 14 days Echo (TTE) completeResult Date: 07/16/2024 Left Ventricle: Left ventricle size is normal. Normal wall motion of left ventricle. Normal systolic function with an estimated EF of 60 - 65%. Normal diastolic function of the left ventricle. Right Ventricle: Right ventricle size is normal. Normal systolic function in the right ventricle. Left Atrium: Left atrium size is normal. Right Atrium: Right atrium size is normal. Pulmonic Valve: Pulmonic valve is structurally normal. No pulmonic valve stenosis present. Tricuspid Valve: Tricuspid valve is structurally normal. Trace tricuspid regurgitation present. RV systolic pressure estimated 46 mmhg, assuming RA pressure 8 mmHg. Mitral Valve: Mitral valve is structurally normal. No mitral regurgitation present. Aortic Valve: Aortic valve is structurally normal. No aortic regurgitation present. No aortic stenosis present. Aorta: Normal sized aortic root, sinus of Valsalva and ascending aorta present. IVC/SVC: IVC diameter is normal. Normal respiratory variation. Pericardium: No pericardial effusion present. MRI brain wo IV contrastResult Date: 07/16/2024 EXAM: MRI BRAIN WITHOUT CONTRAST DATE: 07/16/2024 8:50 IMPRESSION: 1. Extensive areas of recent infarct in the right cerebral hemisphere, including the territory of the right MCA, anterior choroidal artery, and right BIOINFORMATICS TECHNICIAN. 2. Petechial hemorrhagic transformation in the right posterior frontal lobe. Assessment & Plan Acute ischemic right MCA stroke (HCC) Acuity: Acute Suspected Etiology: Large artery atherosclerosis ICH Score and volume on Admission: - CT: ASPECTS 6, hyperdense MCA - CTA: acute occlusion in R ICA and distal reconstitution of flow in MCA territory but M2 and P-com occlusion. - CTP: established M5/M6 region stroke, but 48ml volume in posterior parietal and occipital regions. - Atorvastatin 80 mg daily - ASA 81 mg daily - MRI brain w/o contrast R MCA/BIOINFORMATICS TECHNICIAN infarct - TTE- EF: 60-65%, atrium normal - A1c-5.5, LDL 100 - Blood pressure control SBP <140 - Ordered PT/OT/ST Primary hypertension - BP control, BP <140 Hyperlipidemia - Statin, LDL goal<70 Dysarthria - ST Dysphagia - NPO, need rFees today - NG, TF Hemiplegia (CMS/HCC) (HCC) - PT/OT Dispo: Pending [facility] Current Diet: NPO Diet LESLIE Murray-BCStroke Team B BLENDING TECHNICIAN [id number] 7-5PM, Please call [phone] after 5PM Case discussed with Dr. Keith who agrees with the plan of care. Cosigned by Richie Keith MD at 07/20/2024 11:52 PM CST CAL RECEPTIONIST CAL RECEPTIONIST Associated attestation - Richie Keith MD - 07/20/2024 11:52 PM MEDICAL RECEPTIONIST STROKE NEUROLOGY ATTENDING ATTESTATION I have personally seen and evaluated the patient on July 20, 2024, and I was present for kiran critical points of the encounter. I have discussed the case with and reviewed the provider note detailed above. I have personally viewed the patient's radiographic studies, laboratory tests, and medications. I agree with the above documented history, exam, assessment and plan. Please see note below for any additions and/or exceptions to the note above. Encounter took 35 minutes of total cumulative time examining the patient at the bedside and in discussion regarding plan of care and addressing questions and concerns, reviewing the EMR and paper chart, reviewing diagnostic studies, laboratory values, and recommendations. I provided a substantive portion of the care of this patient. I personally performed the MDM for this encounter. Richie Keith MD, MPHAssistant Professor, Vascular Neurology [facility] [place], [place] [email or web address] [email or web address] Office contact: [phone] Stroke Clinic: [phone] * Fely Hans, OT - 07/19/2024 1:03 PM MEDICAL RECEPTIONIST Evaluation and Treatment Patient Name: Toney Martel Today's Date: 07/19/2024 Preferred Language: Guamanian Assessment & Plan Pt will benefit from further skilled OT services to increase independence when performing ADL Tasks. Pt demonstrates highly decreased performance of functional tasks and pt with decreased balance when performing functional tasks. Pt with decreased balance when sitting as well as decreased endurance and activity tolerance throughout the session, with increased pushing to the L throughout the session . Pt with decreased performance of functional activity at this time and currently requires mod to max A throughout the session. Pt with no active movement noted in the L UE at this time and will benefit from fabrication of L UE orthotic for functional positioning. Overall, pt with decreased performance of grooming, bathing and dressing throughout the session. OT will continue to follow while in house and address the aforementioned deficits. Thanks. Assessment: OT Assessment Results: Impaired ADL status, Impaired upper extremity range of motion, Impaired upper extremity strength, Impaired safe judgment during ADL, Impaired cognition, Impaired fine motor control, Impaired functional mobility, Impaired gross motor control, Impaired IADLs, Impaired right upper extremity, Impaired left upper extremity Prognosis: Fair Barriers to Discharge: Behavioral issues Evaluation/Treatment Tolerance: Patient limited by fatigue, Patient limited by pain Plan: Treatment Plan/Goals Established with Patient/Caregiver: Yes OT Plan: Skilled OT OT Frequency: 3-5 times per week until discharge OT Discharge Recommendations: Inpatient rehab facility placement OT Planned Treatments: Balance training, Neuromuscular reeducation, Manual therapy, Mobility training, Therapeutic exercises, Therapeutic activities, Coordination OT Duration: Discharge Subjective Pt reports "I am feeling better." Current Problem: 78-year-old female with past medical history of hypertension woke up in the morning around 8:15 AM with slurred speech, left-sided weakness. Last seen normal was when she went to bed at 8:30 PM. Initial NIH stroke 17, CT head with changes in the right MCA, aspect 7. CTA with right ICA pseudo occlusion ( read as dissection), with a right M2 and right P-comm thrombus ( BIOINFORMATICS TECHNICIAN). After extensive discussion with family patient underwent emergent thrombectomy with TICI 3 reperfusion. On examination post procedure, stable. NIHSS 15. Objective OT arrives for session, Pt supine in bed upon arrival. at bedside. Pt able to transition to the EOB with mod to max A. Pt able to perform sitting EOB tasks with mod to max A throughout the session, noted with pushing throughout Pt performing cognitive tasks throughout the session and requires min A throughout. Pt able to perform LB Dressing with mod to max A and education provided to pt throughout the session, pt verbalizes understanding. Pt returns to supine in bed with max A. RN updated. Cognition: Overall Cognitive Status: Impaired Behavior/Cognition: Lethargic Arousal/Alertness: Delayed responses to stimuli, Inconsistent responses to stimuli Orientation Level: Disoriented to situation Following Commands: Follows 1 step commands with increased time Safety Judgment: Decreased awareness of need for assistance Awareness of Deficits: Decreased awareness of deficits Attention: Difficulty sustaining attention, Difficulty with selective attention, Difficulty alternating attention Memory: Decreased short term memory, Decreased rodent exterminator memory Problem Solving: Difficulty solving simple problems, Difficulty solving complex problems Home Living: Type of Home: House Lives With: Spouse Prior Function: Receives Help From: Family ADL Assistance: Needs assistance Social History: Social History Source: Patient Patient Responsibilities: Personal ADL Prior IADL: Self Care (ADL): Eating Assistance: Partial/Mod assistance Grooming Assistance: Partial/Mod assistance Bathing Assistance: Substantial/Max assistance UE Dressing Assistance: Substantial/Max assistance LE Dressing Assistance: Substantial/Max assistance Toileting Assistance: Substantial/Max assistance Mobility/Transfers:Bed Mobility Bed Mobility Bed Mobility: Yes Bed Mobility 1 Level of Assistance 1: Substantial/Max assistance Bed Mobility To/From: Roll lying on back to right, Roll lying on back to left, Roll lying to right/Return to back Bed Mobility 2 Level of Assistance 2: Partial/Mod assistance Bed Mobility To/From: Sitting EOB to supine, Supine to sit on EOB Transfer OT General Assessments:ADL Eating Assistance: Partial/Mod assistance Grooming Assistance: Partial/Mod assistance Bathing Assistance: Substantial/Max assistance UE Dressing Assistance: Substantial/Max assistance LE Dressing Assistance: Substantial/Max assistance Toileting Assistance: Substantial/Max assistance SensationLight Touch: LUE Impaired Deep Pressure: LUE Impaired Kinesthesia: LUE Impaired PerceptionInattention/Neglect: Cues to attend left visual field, Cues to attend to left side of body, Cues to maintain midline in sitting Initiation: Hand over hand to initiate tasks Motor Planning: Hand over hand to sequence tasks CoordinationMovements are Fluid and Coordinated: No Finger to Nose: Left impaired, Right impaired Hand FunctionGross Grasp: Impaired Coordination: Impaired Treatment:Self-Care: Eating Assistance: Partial/Mod assistance Grooming Assistance: Partial/Mod assistance Bathing Assistance: Substantial/Max assistance UE Dressing Assistance: Substantial/Max assistance LE Dressing Assistance: Substantial/Max assistance Toileting Assistance: Substantial/Max assistance Bed Mobility:Bed Mobility Bed Mobility: Yes Bed Mobility 1 Level of Assistance 1: Substantial/Max assistance Bed Mobility To/From: Roll lying on back to right, Roll lying on back to left, Roll lying to right/Return to back Bed Mobility 2 Level of Assistance 2: Partial/Mod assistance Bed Mobility To/From: Sitting EOB to supine, Supine to sit on EOB Transfers: AM-PAC Daily Activity:Putting on and taking off regular lower body clothing: A Lot Bathing (including washing, rinsing, drying): A Lot Toileting, which includes using toilet, bedpan or urinal: A Lot Putting on and taking off regular upper body clothing: A Lot Taking care of personal grooming such as brushing teeth: A Little Eating Meals: A Little AM-PAC Daily Activity Raw Score: 14 Patient Education:Education Documentation No documentation found. Education Comments No comments found. Goals:Encounter Goals Encounter Goals (Active) Pt will perform LB dressing with mod A. Start: 07/19/24 Expected End: 08/02/24 Pt will demonstrate increased AROM and fine motor task performance in the B UE throughout the session. Start: 07/19/24 Expected End: 08/02/24Ability to perform basic physical tasks and personal care activities. Orthotics as needed for the L UE Start: 07/19/24 Expected End: 08/02/24Ability to perform basic physical tasks and personal care activities. Pt will sit EOB and perform grooming tasks with min A. Start: 07/19/24 Expected End: 08/02/24Ability to perform basic physical tasks and personal care activities. Treatment Note: If this is the last documented treatment, then it will signify discharge from acute care prior to discharge from the therapy service and will serve as the discharge summary. Fely Maxwell, OT CAL RECEPTIONIST * Anahi Morrow, PT - 07/19/2024 11:46 AM MEDICAL RECEPTIONIST Physical Therapy Treatment Session Note Patient Name: Toney Martel Today's Date: 07/19/2024 Preferred Language: Guamanian Assessment & Plan Assessment: PT Assessment: Pt remains w/ L hemiparesis and neglect, though was noted w/ more movement in L LE today. She was able to stand and weight shift to L LE without buckling. Will continue to follow. Rec INTENSE INPATIENT POST ACUTE THERAPY Medical Staff Made Aware: Yes Plan: PT Discharge Recommendations: Inpatient rehab facility placement PT Recommended Transfer Status: (Mod->max A) Subjective Pt lying in bed in NAD, agreeable to therapy. at bedside Pain: 0/10 ObjectiveGeneral Visit Information: PT Last Visit PT Received On: 07/19/24 Cognition Orientation Level: Oriented X4 TreatmentTherapeutic activity: Therapeutic Activity Therapeutic Activity Time Entry: Therapeutic Activity 1: Lines organized, VSS. Pt was assisted to sit EOB w/ max A, once seated she was able to dangle w/ min A. She sat EOB x 8 minutes for sitting balance training, pt tends to lean/push to L. Pt remains w/ significant L neglect, keep head turned sharply to R. She was able to kick L LE to command while sitting. Pt then performed sit to stand w/ RW w/ mod A for LE weightbearing, PT assisiting w/ L hand on RW. Pt was able to maintain weight on LE's w/ min A. She took 2 side steps w/ mod A, did have difficulty advancing L LE. She sat back down to rest, then was assisted to stand step pivot to bedside chair. She was positioned for comfort w/ L UE elevated, lap belt on for safety. She was left w/ all needs met, lift team called for back to bed in 1.5 hours Bed Mobility: Bed Mobility 1:Level of Assistance 1: Substantial/Max assistance Bed Mobility To/From: Supine to sit on EOB Transfers: Transfers 1: Technique 1: Stand step Level of Assistance 1: (mod A) Transfer To/From: Bed, Chair Gait training: Gait Training Time Entry: 1 Gait Training Activity 1:Distance (enter in feet): 2 side steps Assistive Devices And Adaptive Equipments: Walker, front-wheeled Level of Assistance 1: (mod A) Gait Training Activity 1 Comment: difficulty advancing L LE Outcome Measures: AM-PAC Basic Mobility:AM-PAC Basic Mobility Inpatient Turning in bed without bedrails: A Lot Lying on back to sitting on edge of flat bed: A Lot Bed to chair: A Lot Standing up from chair: A Lot Walk in room: A Lot Climbing 3-5 stairs: A Lot Mobility Inpatient Raw Score: 12 -HLM Goal: 4 Mobility: Highest Level of Mobility Performed (JH-HLM)-HLM Goal: 4 Modified [place] Patient Education: Education Documentation No documentation found. Education Comments No comments found. Goals:Encounter Goals Encounter Goals (Active) Patient will be mod A w/ bed mobility Start: 07/16/24 Expected End: 07/30/24 Patient will be mod A w/ transfers Start: 07/16/24 Expected End: 07/30/24 Patient will be mod A w/ ambulation 10' w/ LRAD Start: 07/16/24 Expected End: 07/30/24 Treatment Note: If this is the last documented treatment, then it will signify discharge from acute care prior to discharge from the therapy service and will serve as the discharge summary. Anahi Morrow PT CAL RECEPTIONIST * Alber Alejandra - 07/19/2024 9:20 AM MEDICAL RECEPTIONIST Functional Maintenance Mobility: RN requested Lift Team assistance. Pt was assisted to transfer from bedsidechair B2B via SPT. Pt was safely left under care of RN. Alber Henleylectronically signed by Alber Alejandra at 07/19/2024 5:46 PM MEDICAL RECEPTIONIST * Emmanuelle Valdez RN - 07/19/2024 9:03 AM MEDICAL RECEPTIONIST CASE MANAGEMENT ROUTINE DISCHARGE PLAN NOTE LOS: 4 DISCHARGE PLAN A: [facility] DISCHARGE PLAN B: Home with hh LAURA: 07/2107/19/24 0900 Discharge Planning Barriers to Discharge Home OT, NPO - repeat fees Patient expects to be discharged to: [facility] Expected Discharge Disposition IRF Anticipated Services at Discharge Post acute facilities (Rehab/SNF/etc) Discharge Planning Comments messaged [facility] liason for update on acceptance and auth. Patient accepted. Will submit for auth today after OT Eval. Discharge Planning Status Referrals Pending CAL RECEPTIONIST CAL RECEPTIONIST * Christine Gonzalez NP - 07/19/2024 7:43 AM MEDICAL RECEPTIONIST Subjective NAOE Objective Last Recorded Vitals Blood pressure 133/60, pulse 62, temperature 37.5 ?C (99.5 ?F), resp. rate 20, height 1.575 m (5' 2"), weight 78.4 kg (172 lb 13.5 oz), SpO2 96%. Physical Exam:General: Alert, no discomfort CV: Regular rate and rhythm, no additional heart sounds or murmurs. Lungs: Clear to A&P. No rales, rhonchi, wheezes or rubs. Abd: Soft, non-tender, no guarding, no organomegaly, regular bowel sounds. Extremities: No peripheral edema, well perfused, no lesions. Neuro:Mental Status: Awake and alert; comprehension intact and following all commands. Oriented to self, place, time. Language/Speech: Comprehension, fluency, naming and repetition all intact. Severe dysarthria. CN: II: Pupils equal and symmetric light response, L homonymous hemianopia III/IV/: R gaze deviation V: L sensory deficit VII: Complete L facial palsy VIII: No nystagmus or hearing deficits IX/X/XII: Symmetric uvula/palate and tongue Motor: L arm AG (hemiparesis), L leg antigravity, normal tone Sensory: L dense hemisensory deficit Toney Martel ( ) with PMH of HTN and carpal tunnel syndrome who presents for evaluation of wake up L sided plegia, LFD and R gaze deviation. LKW 2030 when patient went to bed, woke up at 0815 with difficulty waking up. Exam w/ NIHSS 17 for L sided weakness, sensory, LFD, L homonymous hemianopia, R gaze. CT w/ ASPECTS 6 (internal cap., insula, M5, M6) and possible hyperdense R MCA. CTA w/ R ICA dissection, acute occlusion in R ICA and distal reconstitution of flow in MCA territory but M2 and P-com occlusion. CTP w/ established M5/M6 region stroke, but 48ml volume in posterior parietal and occipital regions. Patient taken for emergent thrombectomy. within WAKE UP protocol window IAT TICI3. Pending repeat swallow eval currently NPO. Assessment & Plan Acute ischemic right MCA stroke (HCC) Acuity: Acute Suspected Etiology: DOROTHEA ICH Score and volume on Admission: - CT: ASPECTS 6, hyperdense MCA - CTA: acute occlusion in R ICA and distal reconstitution of flow in MCA territory but M2 and P-com occlusion. - CTP: established M5/M6 region stroke, but 48ml volume in posterior parietal and occipital regions. - Atorvastatin 80 mg daily - ASA 81 - MRI brain w/o contrast R MCA/BIOINFORMATICS TECHNICIAN infarct - TTE 60-65% EF - linq pending - A1c-5.5, LDL 100 - Blood pressure control SBP <140 - Ordered PT/OT/ST Primary hypertension - BP control, BP <140 Hyperlipidemia - Statin, LDL goal<70 Dysarthria - ST Dysphagia - NPO, need rFees today - NG, TF Hemiplegia (CMS/HCC) (HCC) - PT/OT Stroke, acute, thrombotic (HCC) Dispo: Pending [facility] Current Diet: NPO Diet Cosigned by Lindy Yang MD at 07/19/2024 1:27 PM MEDICAL RECEPTIONIST CAL RECEPTIONIST CAL RECEPTIONIST Associated attestation - Lindy Yang MD - 07/19/2024 1:27 PM CST 78-year-old female with past medical history of hypertension woke up in the morning around 8:15 AM with slurred speech, left-sided weakness. Last seen normal was when she went to bed at 8:30 PM. Initial NIH stroke 17, CT head with changes in the right MCA, aspect 7. CTA with right ICA pseudo occlusion ( read as dissection), with a right M2 and right P-comm thrombus ( BIOINFORMATICS TECHNICIAN). After extensive discussion with family patient underwent emergent thrombectomy with TICI 3 reperfusion. On examination post procedure, stable. NIHSS 15. Etiology of stroke-likely large vessel atherosclerosis -MRI Brain with R MCA, R BIOINFORMATICS TECHNICIAN and R Derick stroke with petechial hemorrhage.-BP goal 120 -140 systolic -Okay for aspirin -Frequent neurochecks - TTE 60-65% EF - A1c-5.5, LDL 100 07/17 - no acute events, failed swallow evaluation. 07/18- sitting up in chair, moves LLE against gravity, still significantneglect. Speech evaluation tomorrow. Linq 07/19- swallow evaluation today, patient clinically stable. PT recommends inpatient rehab. Time spent: 35 minThis includes time spent on bedside evaluation, imaging review, discussion with specialists and family/patient. Time spent does not include time teaching or spent by resident/fellow. Lindy YangVascular Neurology/Neurohospitalist, [facility] [employer], [facility] * Trinidad Will - 07/18/2024 2:30 PM MEDICAL RECEPTIONIST Functional Maintenance Patient Name: Toney Martel Today's Date: 07/18/2024 Mobility: RN requested Lift Team assistance. Pt was found in neurochair. Pt was assisted to transfer from neurochair B2B via lateral drawsheet transfer. Pt was left safely under care of RN. Trinidad Macdonaldally signed by Trinidad Will at 07/18/2024 5:09 PM MEDICAL RECEPTIONIST * Trinidad Will - 07/18/2024 11:10 AM MEDICAL RECEPTIONIST Functional Maintenance Patient Name: Toney Martel Today's Date: 07/18/2024 Mobility: RN requested Lift Team assistance. Pt was found in bed. Pt wasassisted to transfer from bed to neurochair via lateral drawsheet transfer. Pt was left safely under care of RN. Trinidad Macdonaldally signed by Trinidad Will at 07/18/2024 5:06 PM MEDICAL RECEPTIONIST * Christine Gonzalez NP - 07/18/2024 8:08 AM MEDICAL RECEPTIONIST Subjective NAOE Objective Last Recorded Vitals Blood pressure (!) 162/72, pulse 53, temperature 37.2 ?C (98.9 ?F), resp. rate (!) 32, height 1.575 m (5' 2"), weight 78.4 kg (172 lb 13.5 oz), SpO2 96%. Physical Exam:General: Alert, no discomfort CV: Regular rate and rhythm, no additional heart sounds or murmurs. Lungs: Clear to A&P. No rales, rhonchi, wheezes or rubs. Abd: Soft, non-tender, no guarding, no organomegaly, regular bowel sounds. Extremities: No peripheral edema, well perfused, no lesions. Neuro:Mental Status: Awake and alert; comprehension intact and following all commands. Oriented to self, place, time. Language/Speech: Comprehension, fluency, naming and repetition all intact. Severe dysarthria. CN: II: Pupils equal and symmetric light response, L homonymous hemianopia III/IV/: R gaze deviation V: L sensory deficit VII: Complete L facial palsy VIII: No nystagmus or hearing deficits IX/X/XII: Symmetric uvula/palate and tongue Motor: L arm AG (hemiparesis), L leg antigravity, normal tone Sensory: L dense hemisensory deficit Toney Martel ( ) with PMH of HTN and carpal tunnel syndrome who presents for evaluation of wake up L sided plegia, LFD and R gaze deviation. LKW 2030 when patient went to bed, woke up at 0815 with difficulty waking up. Exam w/ NIHSS 17 for L sided weakness, sensory, LFD, L homonymous hemianopia, R gaze. CT w/ ASPECTS 6 (internal cap., insula, M5, M6) and possible hyperdense R MCA. CTA w/ R ICA dissection, acute occlusion in R ICA and distal reconstitution of flow in MCA territory but M2 and P-com occlusion. CTP w/ established M5/M6 region stroke, but 48ml volume in posterior parietal and occipital regions. Patient taken for emergent thrombectomy. within WAKE UP protocol window IAT TICI3. Pending repeat swallow eval currently NPO. Assessment & Plan Acute ischemic right MCA stroke (HCC) Acuity: Acute Suspected Etiology: DOROTHEA ICH Score and volume on Admission: - CT: ASPECTS 6, hyperdense MCA - CTA: acute occlusion in R ICA and distal reconstitution of flow in MCA territory but M2 and P-com occlusion. - CTP: established M5/M6 region stroke, but 48ml volume in posterior parietal and occipital regions. - Atorvastatin 80 mg daily - ASA 81 - MRI brain w/o contrast R MCA/BIOINFORMATICS TECHNICIAN infarct - TTE 60-65% EF - A1c-5.5, LDL 100 - Linq pending - Blood pressure control SBP <140 - Ordered PT/OT/ST Primary hypertension - BP control, BP <140 Hyperlipidemia - Statin, LDL goal<70 Dysarthria - ST Dysphagia - NPO, need rFees Friday - NG, TF Hemiplegia (CMS/HCC) (HCC) - PT/OT Stroke, acute, thrombotic (HCC) Dispo: [facility] Current Diet: NPO Diet Cosigned by Lindy Yang MD at 07/18/2024 3:33 PM MEDICAL RECEPTIONIST CAL RECEPTIONIST CAL RECEPTIONIST Associated attestation - Lindy Yang MD - 07/18/2024 3:33 PM CST 78-year-old female with past medical history of hypertension woke up in the morning around 8:15 AM with slurred speech, left-sided weakness. Last seen normal was when she went to bed at 8:30 PM. Initial NIH stroke 17, CT head with changes in the right MCA, aspect 7. CTA with right ICA pseudo occlusion ( read as dissection), with a right M2 and right P-comm thrombus ( BIOINFORMATICS TECHNICIAN). After extensive discussion with family patient underwent emergent thrombectomy with TICI 3 reperfusion. On examination post procedure, stable. NIHSS 15. Etiology of stroke-likely large vessel atherosclerosis -MRI Brain with R MCA, R BIOINFORMATICS TECHNICIAN and R Derick stroke with petechial hemorrhage.-BP goal 120 -140 systolic -Okay for aspirin -Frequent neurochecks - TTE 60-65% EF - A1c-5.5, LDL 100 07/17 - no acute events, failed swallow evaluation. 07/18- sitting up in chair, moves LLE against gravity, still significantneglect. Speech evaluation tomorrow. Linq Time spent: 35 min This includes time spent on bedside evaluation, imaging review, discussion with specialists and family/patient. Time spent does not include time teaching or spent by resident/fellow. Lindy YangVascular Neurology/Neurohospitalist, [facility] [employer]ductor [employer], [facility] * Alber Alejandra - 07/17/2024 11:50 AM MEDICAL RECEPTIONIST Functional Maintenance Mobility: Encounter; Pt was on Lift Team weekend list. Upon arrival, pt declinedassistance Alber [facility] CAL RECEPTIONIST * Christine Gonzalez, BLENDING TECHNICIAN - 07/17/2024 7:07 AM MEDICAL RECEPTIONIST Subjective NAOE Objective Last Recorded Vitals Blood pressure 148/65, pulse 51, temperature 37.7 ?C (99.8 ?F), resp. rate 20, height 1.575 m (5' 2"), weight 78.4 kg (172 lb 13.5 oz), SpO2 94%. Physical Exam:General: Alert, no discomfort CV: Regular rate and rhythm, no additional heart sounds or murmurs. Lungs: Clear to A&P. No rales, rhonchi, wheezes or rubs. Abd: Soft, non-tender, no guarding, no organomegaly, regular bowel sounds. Extremities: No peripheral edema, well perfused, no lesions. Neuro:Mental Status: Awake and alert; comprehension intact and following all commands. Oriented to self, place, time. Language/Speech: Comprehension, fluency, naming and repetition all intact. Severe dysarthria. CN: II: Pupils equal and symmetric light response, L homonymous hemianopia III/IV/: R gaze deviation V: L sensory deficit VII: Complete L facial palsy VIII: No nystagmus or hearing deficits IX/X/XII: Symmetric uvula/palate and tongue Motor: L arm AG (hemiparesis), L leg antigravity, normal tone Sensory: L dense hemisensory deficit Coordination: Not assessed in plegic arm Assessment & PlanAcute ischemic right MCA stroke (HCC) Acuity: Acute Suspected Etiology: likely ESUS v DOROTHEA ICH Score and volume on Admission: - CT: ASPECTS 6, hyperdense MCA - CTA: acute occlusion in R ICA and distal reconstitution of flow in MCA territory but M2 and P-com occlusion. - CTP: established M5/M6 region stroke, but 48ml volume in posterior parietal and occipital regions. - Atorvastatin 80 mg daily - ASA 81 - MRI brain w/o contrast R MCA/BIOINFORMATICS TECHNICIAN infarct - TTE 60-65% EF - A1c-5.5, LDL 100 - Linq pending - Blood pressure control SBP <140 - Ordered PT/OT/ST Primary hypertension - BP control, BP <140 Hyperlipidemia - Statin, LDL goal<70 Dysarthria - ST Dysphagia - NPO, need rFees - NG, TF Hemiplegia (CMS/HCC) (HCC) - PT/OT Stroke, acute, thrombotic (HCC) Dispo: Pending evals, TBD Current Diet: NPO Diet Cosigned by Lindy Yang MD at 07/18/2024 3:29 PM MEDICAL RECEPTIONIST CAL RECEPTIONIST CAL RECEPTIONIST Associated attestation - Lindy Yang MD - 07/18/2024 3:29 PM CST 78-year-old female with past medical history of hypertension woke up in the morning around 8:15 AM with slurred speech, left-sided weakness. Last seen normal was when she went to bed at 8:30 PM. Initial NIH stroke 17, CT head with changes in the right MCA, aspect 7. CTA with right ICA pseudo occlusion ( read as dissection), with a right M2 and right P-comm thrombus ( BIOINFORMATICS TECHNICIAN). After extensive discussion with family patient underwent emergent thrombectomy with TICI 3 reperfusion. On examination post procedure, stable. NIHSS 15. Etiology of stroke-likely large vessel atherosclerosis vs ESUS -MRI Brain with R MCA, R BIOINFORMATICS TECHNICIAN and R Derick stroke with petechial hemorrhage.-BP goal 120 -140 systolic -Okay for aspirin -Frequent neurochecks -TTE, lipid profile, A1c -PT OT/ speech - Linq 07/17 - no acute events, failed swallow evaluation. Time spent: 35 minThis includes time spent on bedside evaluation, imaging review, discussion with specialists and family/patient. Time spent does not include time teaching or spent by resident/fellow. Lindy YangVascular Neurology/Neurohospitalist, [facility] [employer], [facility] * Andie Acosta [facility] - 07/16/2024 1:33 PM MEDICAL RECEPTIONIST Images from the original note were not included. [facility] [place] [facility] CLINICAL SWALLOWING EVALUATION (CSE) Patient Name: Toney Martel Today's Date: 07/16/2024 Room: [place] [id number] CLINICAL SWALLOW EVALUATION SUMMARY: OME completed; incomplete Facial, labial, and lingual symmetry noted. JAVA SDET provided patient with PO trials of thin liquid via spoon and straw. Clinical s/sx of airway invasion characterized by overt coughing with trials. Trails were discontinued for patient's comfort and safety. Patient is not currently safe for PO diet at this time and an instrumental swallow evaluation is indicated. RECOMMENDATIONS: Diet Recommendations: NPO with alternate means of nutrition Medications: Non oral Oral care: Suction toothbrush , Every 6 hours JAVA SDET will follow up with instrumental swallow evaluation and dysphagia management as indicated. PROGNOSIS: Good PLAN: Treatment/Interventions: Instrumental Assessments Frequency: 1-2 times per week GENERAL INFORMATION: Reason for Consult: Pt was referred for a clinical swallow evaluation. Oxygenation: Room air Behavior:Cooperative Level of Consciousness: Awake & alert Pain: Pain Assessment: DVPRS Diet Prior to this Evaluation: NPO Preferred Language: Guamanian ORAL MOTOR EXAM: Dentition: Edentulous Face: Impaired Face Symmetry: Impaired Jaw: Within Functional Limits Lips: Impaired Lips Symmetry: Impaired Lips ROM: Impaired Tongue: Impaired Tongue Symmetry: Impaired SWALLOW ASSESSMENT: Consistencies Assessed Consistencies Assessed: Yes Swallowing Overview - Liquids 0 - Thin Liquid: Impaired Clinical Swallow Evaluation Patient Positioning: In bed, Upright Previous History of Dysphagia?: No Inability to Follow One Step Directions?: No Tracheostomy Present: No Inability to Manage Their Secretions?: No Incomplete Lingual ROM?: Yes Incomplete Facial Symmetry (Facial Droop)?: Yes Voice Change During Swallowing Trials?: No Abnormal/Weak Volitional Cough?: No Cough/Throat Clear w/ Trial Consistency?: Yes Dysphonia (Quality and/or Pitch Change)?: No Motor Speech Disorder (Dysarthria/Apraxia)?: No Apraxia of the Swallow Suspected?: No Delayed Swallow Suspected?: No Multiple Swallows Per Bolus Suspected?: No OUTCOME MEASURES: International Dysphagia Diet Standardization Initiative - IDDSI Solids - N/A Liquids - N/A IDDSI Level - 0 GOALS: Encounter Goals Encounter Goals (Active) LTG - Patient will improve on swallowing outcome measure Start: 07/16/24 Expected End: 08/06/24 STG - Participate in an instrumental swallow study Start: 07/16/24 Expected End: 08/06/24 EDUCATION:Education Documentation Speech-Language/Pathology Treatment Plan, taught by ELEUTERIO Dejesus at 07/16/2024 1:33 PM. Learner: Family, Patient Readiness: Eager Method: Explanation Response: Verbalizes Understanding Results of Exam, taught by ELEUTERIO Dejesus at 07/16/2024 1:33 PM.Learner: Family, Patient Readiness: Eager Method: Explanation Response: Verbalizes Understanding Education CommentsNo comments found. If this is the last documented treatment, then it will signify discharge from acute care prior to discharge from the therapy service and will serve as the discharge summary. Therapy discharge recommendations are made by determining the patient's prior level of function, assessing current function level and establishing rehab potential. The overall discharge plan may be affected by input from Physicians, Care Coordination, medical condition/status, family support and insurance benefits. ELEUTERIO Dejesus CAL RECEPTIONIST * Anahi Morrow, PT - 07/16/2024 12:12 PM MEDICAL RECEPTIONIST Physical Therapy Evaluation and Treatment Note Patient Name: Toney Martel Today's Date: 07/16/2024 Preferred Language: Guamanian Assessment & Plan Assessment: PT Assessment: Pt w/ dense L hemiparesis and strong L pushing in sitting/standing. She was also noted w/ significant L neglect. 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 PT to continue to follow, rec inpatient post acute therapy at d/c Prognosis: Good Medical Staff Made Aware: Yes Plan: Treatment Plan/Goals Established with Patient/Caregiver: Yes Treatment/Interventions: Balance training, Bed mobility training, Functional activities, Gait training, Neuromuscular re-education, Patient education, Therapeutic exercises, Transfer training PT Plan: Skilled PT PT Frequency: 3-5 times per week until discharge PT Discharge Recommendations: [facility] facility placement, Inpatient rehab facility placement PT Recommended Transfer Status: Total assist Subjective Pt lying in bed in NAD. Pt dysarthric but oriented. Son and at bedside Current Problem: Ms. Toney Martel ( , 1945) with PMH of HTN, who presented 07/15/2024 after she woke up this morning at 0815a with slurred speech, facial droop, R-gaze, and left sided weakness with LSN 2030 (07/14/24). Initial NIHSS of 17, BG 90 and SBP 140. CTH no acute hemorrhage, noted early acute ischemic changes in R MCA and BIOINFORMATICS TECHNICIAN regions with ASPECTS of 7. CTA w/ R ICA dissection, acute occlusion in R ICA and distal reconstitution of flow in MCA territory but M2 and P-com occlusion and CTP with 48mm mismatch. OOW for TNK. Pt then taken emergently to angio for mechanical thrombectomy of supraclinoid right ICA occlusion and right superior division right middle cerebral artery M2 occlusion with TICI3 reperfusion after a total of 3 passes. Admitted to Neuro ICU post-thrombectomy for further mgmt. Pain: 0/10 Home Living: Type of Home: House Lives With: Spouse Prior Level of Function: Level of Cosby: (independent) Objective General Visit Information: Cognition: Orientation Level: Oriented X4 General Assessments:Sensation Sensation Light Touch: RLE Intact, LLE Impaired Balance- SittingStatic Sitting-Balance Support: Right upper extremity supported Level of Assistance: Substantial/Max assistance Balance- StandingStatic Standing-Balance Support: Left upper extremity supported, Right upper extremity supported Static Standing-Level of Assistance: Substantial/Max assistance Functional Assessments: Bed Mobility Bed Mobility 1: Level of Assistance 1: Substantial/Max assistance Bed Mobility To/From: Supine to sit on EOB, Sitting EOB to supine Transfers Transfers 1:Level of Assistance 1: Substantial/Max assistance Transfer To/From: [id number]/[id number] Gait Gait Training Activity 1: Distance (enter in feet): 2 side steps Assistive Devices And Adaptive Equipments: (PT directly in front of pt) Level of Assistance 1: Substantial/Max assistance Gait Training Activity 1 Comment: needed assistance moving L LE, L knee buckling Extremity Assessments:Right Lower Extremity RLE Assessment RLE Assessment: Within Functional Limits Left Lower Extremity LLE AssessmentLLE Assessment: (no active spontaneous movement, ROM WFL) Activity Tolerance: Cognition Orientation Level: Oriented X4 TreatmentTherapeutic activity: Therapeutic Activity Therapeutic Activity Time Entry: 10 Therapeutic Activity 1: Lines organized, VSS. Pt was assisted to sit EOB w/ max A, noted strong L pushing, required max A to dangle. Pt needed max cueing to visually track PT in midline, was unable to maintain looking at PT in front of her. Had pt hold R rail, balance improve to requiring mod A. She sat EOB x 8 minutes for sitting balance training, tolerated well. She was then assisted to stand w/ max A, pt actually able to assist well w/ R side. She performed 2 side steps w/ max A, then sat back EOB. She was then assisted back to supine, positioned flat for machine operator slitter technician at bedside Outcome Measures: AM-PAC Basic Mobility:Turning in bed without bedrails: A Lot Lying on back to sitting on edge of flat bed: A Lot Bed to chair: A Lot Standing up from chair: A Lot Walk in room: Total Climbing 3-5 stairs: Total Mobility Inpatient Raw Score: 10 -[facility] Goal: 4 Patient Education:Education Documentation Physical Therapy Plan of Care, taught by Anahi Morrow PT at 07/16/2024 12:11 PM. Learner: Family, Patient Readiness: Acceptance Method: Explanation Response: Verbalizes Understanding Education CommentsNo comments found. Goal:Encounter Goals Encounter Goals (Active) Patient will be mod A w/ bed mobility Start: 07/16/24 Expected End: 07/30/24 Patient will be mod A w/ transfers Start: 07/16/24 Expected End: 07/30/24 Patient will be mod A w/ ambulation 10' w/ LRAD Start: 07/16/24 Expected End: 07/30/24 Treatment Note: If this is the last documented treatment, then it will signify discharge from acute care prior to discharge from the therapy service and will serve as the discharge summary. Anahi Morrow PT CAL RECEPTIONIST * Emmanuelle Valdez RN - 07/16/2024 11:02 AM MEDICAL RECEPTIONIST 07/16/24 1000 Readmission Questions Is this hospital visit a Readmission? No Discharge Planning Information Source Family Permanent Residence Private residence Household Members Spouse/significant other Support Systems Children;Spouse/significant other Arrived From Permanent Residence Barriers to Discharge Home PT/OT/ST, BP control, Cardene gtt, In the last 12 months, was there a time when you were not able to pay the mortgage or rent on time? N In the past 12 months, how many times have you moved where you were living? 0 At any time in the past 12 months, were you homeless or living in a residential (including now)? N In the past 12 months has the electric, gas, oil, or water [employer] threatened to shut off services in your home? No Within the past 12 months, you worried that your food would run out before you got the money to buy more. Never true Within the past 12 months, the food you bought just didn't last and you didn't have money to get more. Never true Assistive Devices None Assistance Needed independent prior to hospitalization Patient expects to be discharged to: [facility] Expected Discharge Disposition IRF Anticipated Services at Discharge Post acute facilities (Rehab/SNF/etc) Type of Post Acute Facility Services Rehab In the past 12 months, has lack of transportation kept you from medical appointments or from getting medications? no In the past 12 months, has lack of transportation kept you from meetings, work, or from getting things needed for daily living? No Does the patient need discharge transport arranged? No Discharge Planning Comments CM spoke to patient's son and spouse at bedside. Patient resides in a single level home with spouse. Patient is independent prior to hospital admission. No DME utilized. CM also discussed discharge disposition. IPR list was presented with facilities in preferred zipcode. Family choice is [facility]. Referral sent via [employer]. Discharge Planning Status Referrals Pending CAL RECEPTIONIST * Indira Moulton - 07/16/2024 9:49 AM MEDICAL RECEPTIONIST Spiritual Care Subjective Crew Supervisor attempted to visit patient, but patient was not available. Patient and pt's bed were not in room. Consulted with IDT. Crew Supervisor to follow as circumstances allow. Electric Mule Operator support remains available to patient, as needed. Please contact Electric Mule Operator Dept. @ ext. [phone] for emergent tumor registrar needs. Reason For Visit Care Recipient: Patient not available Reason for Visit: Admission request Referral From: Nurse Interventions Collaboration Interventions: Coordinated with interdisciplinary team PlanFollow-up: Follow as circumstances allow CAL RECEPTIONIST * Christine Gonzalez, BLENDING TECHNICIAN - 07/16/2024 7:53 AM MEDICAL RECEPTIONIST Subjective NAOE Objective Last Recorded Vitals Blood pressure 129/60, pulse 54, temperature 37.7 ?C (99.8 ?F), resp. rate 19, weight 78.4 kg (172 lb 13.5 oz), SpO2 95%. Physical Exam:General: Alert, no discomfort CV: Regular rate and rhythm, no additional heart sounds or murmurs. Lungs: Clear to A&P. No rales, rhonchi, wheezes or rubs. Abd: Soft, non-tender, no guarding, no organomegaly, regular bowel sounds. Extremities: No peripheral edema, well perfused, no lesions. Neuro:Mental Status: Awake and alert; comprehension intact and following all commands. Oriented to self, place, time. Language/Speech: Comprehension, fluency, naming and repetition all intact. Severe dysarthria. CN: II: Pupils equal and symmetric light response, L homonymous hemianopia III/IV/: R gaze deviation V: L sensory deficit VII: Complete L facial palsy VIII: No nystagmus or hearing deficits IX/X/XII: Symmetric uvula/palate and tongue Motor: L arm plegic, L leg antigravity, normal tone Sensory: L dense hemisensory deficit Coordination: Not assessed in plegic arm Toney Martel ( ) with PMH of HTN and carpal tunnel syndrome who presents for evaluation of wake up L sided plegia, LFD and R gaze deviation. LKW 2030 when patient went to bed, woke up at 0815 with difficulty waking up. Exam w/ NIHSS 17 for L sided weakness, sensory, LFD, L homonymous hemianopia, R gaze. CT w/ ASPECTS 6 (internal cap., insula, M5, M6) and possible hyperdense R MCA. CTA w/ R ICA dissection, acute occlusion in R ICA and distal reconstitution of flow in MCA territory but M2 and P-com occlusion. CTP w/ established M5/M6 region stroke, but 48ml volume in posterior parietal and occipital regions. Patient taken for emergent thrombectomy. within WAKE UP protocol window IAT TICI3. Pending further stroke work up. Assessment & Plan Acute ischemic right MCA stroke (HCC) Acuity: Acute Suspected Etiology: To be determined but likely ESUS ICH Score and volume on Admission: - CT: ASPECTS 6, hyperdense MCA - CTA: R ICA dissection, acute occlusion in R ICA and distal reconstitution of flow in MCA territory but M2 and P-com occlusion. - CTP: established M5/M6 region stroke, but 48ml volume in posterior parietal and occipital regions. - Start Atorvastatin 80 mg daily - Start ASA - MRI brain w/o contrast pending - TTE pending - A1c-5.5, LDL 100 - Blood pressure control: Post-thrombectomy/IAT reperfusion SBP <140 - Ordered PT/OT/ST Primary hypertension - Home regimen: Unclear what medication patient takes - BP control, Post-thrombectomy/IAT reperfusion SBP <140 Hyperlipidemia Statin, LDL goal<70 Dysarthria - ST Dysphagia - NPO - NG, TF Hemiplegia (CMS/HCC) (HCC) - PT/OT Stroke, acute, thrombotic (HCC) Dispo: TBD, PT-10 Current Diet: NPO Diet Cosigned by Lindy Yang MD at 07/17/2024 4:17 PM MEDICAL RECEPTIONIST CAL RECEPTIONIST CAL RECEPTIONIST CAL RECEPTIONIST Associated attestation - Lindy Yang MD - 07/17/2024 4:17 PM CST 78-year-old female with past medical history of hypertension woke up in the morning around 8:15 AM with slurred speech, left-sided weakness. Last seen normal was when she went to bed at 8:30 PM. Initial NIH stroke 17, CT head with changes in the right MCA, aspect 7. CTA with right ICA pseudo occlusion ( read as dissection), with a right M2 and right P-comm thrombus ( BIOINFORMATICS TECHNICIAN). After extensive discussion with family patient underwent emergent thrombectomy with TICI 3 reperfusion. On examination post procedure, stable. NIHSS 15. Etiology of stroke-likely large vessel atherosclerosis -MRI Brain with R MCA, R BIOINFORMATICS TECHNICIAN and R Derick stroke with petechial hemorrhage.-BP goal 120 -140 systolic -Okay for aspirin -Frequent neurochecks -TTE, lipid profile, A1c -PT OT/ speech - Ok to move to stroke unit. Time spent: 40 min This includes time spent on bedside evaluation, imaging review, discussion with specialists and family/patient. Time spent does not include time teaching or spent by resident/fellow. Lindy Stover Neurology/Neurohospitalist, [facility] [employer], [facility] * Andie Acosta CCC-JAVA SDET - 07/15/2024 12:13 PM MEDICAL RECEPTIONIST Speech-Language Pathology Orders received for clinical swallow evaluation. Pt currently ANAYA and intubated for procedure. JAVA SDET will follow up as indicated. CAL RECEPTIONIST [id number]48Pending Results Scheduled Orders Name Type Priority Associated Diagnoses Orde r Schedule Check puncture site(s) for bleeding or hematoma on arrival and with vital signs. Notify radiologist if bleeding or hematoma occurs, apply manual pressure immediately. Wound Ostomy Routine Once for 1 Occurrences starting 07/15/2024 until 07/15/2024 Scheduled Referrals Name Type Priority Associated Diagnoses Orde r Schedule Ambulatory referral to Neurology Outpatient Referral Routine Cerebrovascular accident (CVA), unspecified mechanism (HCC) Expected: 07/23/2024 (Approximate), Expires: 07/23/2025 Ambulatory referral to Gastroenterology Outpatient Referral Routine Dysphagia, unspecified type Expected: 07/23/2024 (Approximate), Expires: 07/23/2025 Health Maintenance Due Date Last Done Comments Bone Density Scan 1945 Respiratory Syncytial Virus (RSV) or >=60 (1 - 1-dose 75+ series) 11/16/2019 Medicare Annual Wellness (AWV) 07/21/2020 06/21/2019 Annual Physical 10/02/2022 10/02/2021 Influenza Vaccine (#1) 2024 , 06/13/2020, 05/26/2019 Lipid Panel 07/15/2029 07/15/2024 DTaP/Tdap/Td Vaccines (4 - T d or Tdap) 10/16/2031 10/15/2021, 10/15/2021, 02/04/2010 Pneumococcal Vaccine: 65+ Years Completed 06/21/2019, 02/04/2010 Zoster Vaccines Completed 10/08/2019, 08/09/2019, 02/04/2010 HIB Vaccines Aged Out No longer eligi ble based on patient's age to complete this topic HPV Vaccines Aged Out No longer eligi ble based on patient's age to complete this topic Hepatitis A Vaccines Aged Out No long er eligible based on patient's age to complete this topic Hepatitis B Vaccines Aged Out No long er eligible based on patient's age to complete this topic IPV Vaccines Aged Out No longer eligi ble based on patient's age to complete this topic Meningococcal Vaccine Aged Out No lulú imani eligible based on patient's age to complete this topic Rotavirus Vaccines Aged Out No longer eligible based on patient's age to complete this topic [id number] 12:15:48 [place] [id number] 12:15:48 Diagnosis Acute ischemic right MCA stroke (HCC) - Primary Unspecified cerebral artery occlusion with cerebral infarction Stroke, acute, thrombotic (H CC) Left-sided muscle weakness Muscle weakness (generalized) Cerebrovascular accident (CV A), unspecified mechanism (HCC) Dysphagia, unspecified type Primary hypertension Unspecified essential hypertension Stroke, acute, thrombotic (H CC) Hyperlipidemia Other and unspecified hyperlipidemia Dysarthria Dysphagia Hemiplegia (CMS/HCC) (HCC) Unspecified hemiplegia affecting unspecified side Simple obesity Obesity, unspecified [id number] 12:15:48 [place] [id number] 09:43:12 Problem: Neurological Deficit Goal: Neurological status is stable or improving Outcome: Progressing Goal: Maintain vital signs within ordered limits Outcome: Progressing Goal: Oxygenation goal greater than 94% Outcome: Progressing Problem: Activity Intolerance/Impaired Mobility Goal: Mobility/activity is maintained at optimum level for patient Outcome: Progressing Goal: Maintains or returns to baseline bowel function Outcome: Progressing Goal: Maintains or returns to baseline bladder function Outcome: Progressing Problem: Communication Impairment Goal: Ability to express needs and understand communication Outcome: Progressing Problem: Potential for Aspiration Goal: Non-ventilated patient's risk of aspiration is minimized Outcome: Progressing Goal: Ventilated patient's risk of aspiration is minimized Outcome: Progressing Problem: Infection Goal: Signs and symptoms of infections are decreased or avoided Outcome: Progressing Goal: Oral health is maintained or improved Outcome: Progressing Problem: Nutrition Goal: Nutritional status is improving Outcome: Progressing Problem: Thrombolytic Therapy Goal: Monitor for angioedema Outcome: Progressing Goal: Monitor for bleeding for 48 hours post tenectaplase/interventional procedures Outcome: Progressing Problem: Bleeding Precautions Goal: Excessive bleeding will be minimized Outcome: Progressing Problem: Potential for Falls Goal: I will remain free of falls Outcome: Progressing The patient is Moderately Stable - Low risk of patient condition declining or worsening The patient's goals for the shift include no pain The clinical goals for the shift include SBP <150, [facility] 00:13:29 The patient is Moderately Stable - Low risk of patient condition declining or worsening The clinical goals for the shift include SBP <150 Problem: Neurological Deficit Goal: Neurological status is stable or improving Outcome: Progressing Problem: Activity Intolerance/Impaired Mobility Goal: Mobility/activity is maintained at optimum level for patient Outcome: Progressing Goal: Maintains or returns to baseline bladder function Outcome: Progressing Problem: Communication Impairment Goal: Ability to express needs and understand communication Outcome: Progressing Problem: Infection Goal: Signs and symptoms of infections are decreased or avoided Outcome: Progressing Problem: Nutrition Goal: Nutritional status is improving Outcome: [facility]ing [facility] 18[facility]05:06 The patient is Moderately Stable - Low risk of patient condition declining or worsening The patient's goals for the shift include peg insertion The clinical goals for the shift include SBP <150, peg insertion [facility]2025-01-16 17:30:00 Patient came back from GI lab. Patient alert and oriented x 4. Follows verbal command. PEG in place, site clean, dry and intact. Abdominal binder in place as well. Team made aware pt is back. [facility]2025-01-16 15:44:00 Spoken with both Brittany (spouse) and Hardy (son) regarding patient allergies to both medication and food. Both parties denies patient having any allergies. Updated in patient profile to reflect NKDA. [facility]2025-01-16 14:30:00 Sent pt to GI lab for PEG placement. [facility]2025-01-16 03:03:18 Problem: Nutrition Goal: Nutritional status is improving Outcome: Not Progressing Problem: Neurological Deficit Goal: Neurological status is stable or improving Outcome: Met Goal: Maintain vital signs within ordered limits Outcome: Met Goal: Oxygenation goal greater than 94% Outcome: Met Problem: Activity Intolerance/Impaired Mobility Goal: Maintains or returns to baseline bowel function Outcome: Met Goal: Maintains or returns to baseline bladder function Outcome: Met Problem: Potential for Aspiration Goal: Ventilated patient's risk of aspiration is minimized Outcome: Deferred Problem: Thrombolytic Therapy Goal: Monitor for bleeding for 48 hours post tenectaplase/interventional procedures Outcome: Deferred Problem: Potential for Aspiration Goal: Non-ventilated patient's risk of aspiration is minimized Outcome: Ongoing Problem: Infection Goal: Signs and symptoms of infections are decreased or avoided Outcome: Ongoing Goal: Oral health is maintained or improved Outcome: Ongoing Problem: Thrombolytic Therapy Goal: Monitor for angioedema Outcome: Ongoing Problem: Bleeding Precautions Goal: Excessive bleeding will be minimized Outcome: Ongoing Problem: Potential for Falls Goal: I will remain free of falls Outcome: Ongoing Problem: Activity Intolerance/Impaired Mobility Goal: Mobility/activity is maintained at optimum level for patient Outcome: Progressing Problem: Communication Impairment Goal: Ability to express needs and understand communication Outcome: Progressing [facility]2025-01-15 08:52:32 The patient is Moderately Stable - Low risk of patient condition declining or worsening The patient's goals for the shift include rest The clinical goals for the shift include SBP <150 Problem: Neurological Deficit Goal: Neurological status is stable or improving Outcome: Progressing Goal: Maintain vital signs within ordered limits Outcome: Progressing Goal: Oxygenation goal greater than 94% Outcome: Progressing Problem: Activity Intolerance/Impaired Mobility Goal: Mobility/activity is maintained at optimum level for patient Outcome: Progressing Goal: Maintains or returns to baseline bowel function Outcome: Progressing Goal: Maintains or returns to baseline bladder function Outcome: Progressing Problem: Communication Impairment Goal: Ability to express needs and understand communication Outcome: Progressing Problem: Potential for Aspiration Goal: Non-ventilated patient's risk of aspiration is minimized Outcome: Progressing Goal: Ventilated patient's risk of aspiration is minimized Outcome: Progressing Problem: Infection Goal: Signs and symptoms of infections are decreased or avoided Outcome: Progressing Goal: Oral health is maintained or improved Outcome: Progressing Problem: Nutrition Goal: Nutritional status is improving Outcome: Progressing Problem: Thrombolytic Therapy Goal: Monitor for angioedema Outcome: Progressing Goal: Monitor for bleeding for 48 hours post tenectaplase/interventional procedures Outcome: Progressing Problem: Potential for Falls Goal: I will remain free of falls Outcome: Progressing Problem: Bleeding Precautions Goal: Excessive bleeding will be minimized Outcome: Progressing Over the shift, the patient did not make progress toward the following goals. [facility] 02:57:12 Problem: Activity Intolerance/Impaired Mobility Goal: Mobility/activity is maintained at optimum level for patient Outcome: Not Progressing Problem: Potential for Aspiration Goal: Non-ventilated patient's risk of aspiration is minimized Outcome: Not Progressing Problem: Neurological Deficit Goal: Oxygenation goal greater than 94% Outcome: Met Problem: Potential for Aspiration Goal: Ventilated patient's risk of aspiration is minimized Outcome: Deferred Problem: Thrombolytic Therapy Goal: Monitor for bleeding for 48 hours post tenectaplase/interventional procedures Outcome: Deferred Problem: Activity Intolerance/Impaired Mobility Goal: Maintains or returns to baseline bowel function Outcome: Ongoing Goal: Maintains or returns to baseline bladder function Outcome: Ongoing Problem: Infection Goal: Signs and symptoms of infections are decreased or avoided Outcome: Ongoing Goal: Oral health is maintained or improved Outcome: Ongoing Problem: Nutrition Goal: Nutritional status is improving Outcome: Ongoing Problem: Thrombolytic Therapy Goal: Monitor for angioedema Outcome: Ongoing Problem: Bleeding Precautions Goal: Excessive bleeding will be minimized Outcome: Ongoing Problem: Potential for Falls Goal: I will remain free of falls Outcome: Ongoing Problem: Neurological Deficit Goal: Neurological status is stable or improving Outcome: Progressing Goal: Maintain vital signs within ordered limits Outcome: Progressing Problem: Communication Impairment Goal: Ability to express needs and understand communication Outcome: Progressing [facility]2025-01-14 12:06:11 [facility] Appointment Information VERY IMPORTANT INSTRUCTIONS, PLEASE READ !!! Appointment date: Friday08/25/2024 @ [address] Kevin. Copy of appointment given to family at bedside. Email to [email or web address] after speaking with him per phone. Call Stroke Clinic @ [phone] if you need to cancel or reschedule appointment. You have been scheduled for a (in-person) visit for your stroke follow-up appointment. The address for in-person visits is listed below. Before your visit, please sign-up with [employer]. You can sign-up using this link: [email or web address] and the activation code sent to your email or phone number. Please sign up at least 72 hours before your appointment. If you did not receive an activation code, please call [phone]. Through [employer], you will complete your information, view your medical records, send a message to your provider, and receive clinic forms in your [employer] inbox necessary to complete your visit. Please, complete the forms in their entirety. If you do not receive a reminder for your appointment within 48 hours of your scheduled appointment date, please call the office at [phone] to ensure that your information is correct. If your phone number or email changes before the appointment date, call the same number to update your information. Please plan to arrive 15 minutes early for an in-person appointment. We look forward to seeing you soon. Clinic Address: [address] [place] [address], [address]. [place] [address]. . . Clinic parking ([address] [place] [address]) [email or web address] CAL RECEPTIONIST RO Kim2025-01-14 08:00:05 The patient is Moderately Stable - Low risk of patient condition declining or worsening The patient's goals for the shift include rest and comfort The clinical goals for the shift include SBP <150 Over the shift, the patient did not make progress toward the following goals. Barriers to progression include physical limitation. Recommendations to address these barriers include encourage participation with pt/to/service attendant. RO Kim2025-01-14 04:01:06 Problem: Neurological Deficit Goal: Oxygenation goal greater than 94% Outcome: Met Problem: Potential for Aspiration Goal: Ventilated patient's risk of aspiration is minimized Outcome: Deferred Problem: Thrombolytic Therapy Goal: Monitor for bleeding for 48 hours post tenectaplase/interventional procedures Outcome: Deferred Problem: Activity Intolerance/Impaired Mobility Goal: Mobility/activity is maintained at optimum level for patient Outcome: Ongoing Goal: Maintains or returns to baseline bowel function Outcome: Ongoing Goal: Maintains or returns to baseline bladder function Outcome: Ongoing Problem: Communication Impairment Goal: Ability to express needs and understand communication Outcome: Ongoing Problem: Potential for Aspiration Goal: Non-ventilated patient's risk of aspiration is minimized Outcome: Ongoing Problem: Infection Goal: Signs and symptoms of infections are decreased or avoided Outcome: Ongoing Goal: Oral health is maintained or improved Outcome: Ongoing Problem: Nutrition Goal: Nutritional status is improving Outcome: Ongoing Problem: Thrombolytic Therapy Goal: Monitor for angioedema Outcome: Ongoing Problem: Bleeding Precautions Goal: Excessive bleeding will be minimized Outcome: Ongoing Problem: Potential for Falls Goal: I will remain free of falls Outcome: Ongoing Problem: Neurological Deficit Goal: Neurological status is stable or improving Outcome: Progressing Goal: Maintain vital signs within ordered limits Outcome: Progressing [facility] 10:00:40 The patient is Moderately Stable - Low risk of patient condition declining or worsening The patient's goals for the shift include feel better The clinical goals for the shift include SBP<140; pt will be free from pain/fall; more awaker & alert Over the shift, the patient did not make progress toward the following goals. Barriers to progression include ngt and physical limitation. Recommendations to address these barriers include frequent service attendant and encourage participation with pt/ot. [facility]2025-01-13 03:15:04 The patient is Moderately Stable - Low risk of patient condition declining or worsening The patient's goals for the shift include no fever,lethagty The clinical goals for the shift include no elevated temp greater than 100 Over the shift, the patient did make progress toward the following goals. Barriers to progression include prolonged hospitalization. Recommendations to address these barriers include monitor vital signs carefully, call for, elevated temp or altered mental status.. [facility]2025-01-12 15:50:15 The patient is Moderately Stable - Low risk of patient condition declining or worsening The patient's goals for the shift include feel better The clinical goals for the shift include SBP<140; pt will be free from pain/fall; more awaker & alert Over the shift, the patient did not make progress toward the following goals. Barriers to progression include none. Recommendations to address these barriers include none. [place] [address]-01-12 07:37:31 The patient is Moderately Stable - Low risk of patient condition declining or worsening The patient's goals for the shift include feel better The clinical goals for the shift include SBP<140; pt will be free from pain/fall; more awaker & alert Over the shift, the patient did not make progress toward the following goals. Barriers to progression include none. Recommendations to address these barriers include none. [place] [id number] 02:42:10 Pt received from [place] sher. Pt remains at baseline. Skin and neuro assessment performed. Pt belongings at bedside [place] [id number] 01:04:34 The patient is Moderately Unstable - Medium risk of patient condition declining or worsening The patient's goals for the shift include feel better The clinical goals for the shift include SBP<140; pt will be free from pain/fall; more awaker & alert Over the shift, the patient did not make progress toward the following goals. Barriers to progression include pt neurological status. Recommendations to address these barriers include pt education and monitoring. [place] [id number] 23:59:12 Change of caregiver, report received from samira hunt chi [place] [id number] 11:54:34 The patient is Moderately Unstable - Medium risk of patient condition declining or worsening Problem: Neurological Deficit Goal: Neurological status is stable or improving Outcome: Progressing Goal: Maintain vital signs within ordered limits Outcome: Progressing Goal: Oxygenation goal greater than 94% Outcome: Progressing Problem: Activity Intolerance/Impaired Mobility Goal: Mobility/activity is maintained at optimum level for patient Outcome: Progressing Goal: Maintains or returns to baseline bowel function Outcome: Progressing Flowsheets (Taken 07/17/2024 0800) Maintains or returns to baseline bowel function: Assess bowel function Nutrition consult to assist patient with appropriate food choices Administer ordered medications as needed Encourage mobilization and activity Administer IV fluids as ordered to ensure adequate hydration Encourage oral fluids to ensure adequate hydration Goal: Maintains or returns to baseline bladder function Outcome: Progressing The patient's goals for the shift include feel better The clinical goals for the shift include SBP<140; pt will be free from pain/fall; more awaker & alert [facility]2025-01-11 02:01:42 The patient is Moderately Stable - Low risk of patient condition declining or worsening The patient's goals for the shift include rest The clinical goals for the shift include SBP<140; pt will be free from pain/fall [facility]2025-01-10 14:52:52 The patient is Moderately Stable - Low risk of patient condition declining or worsening The patient's goals for the shift include monitoring neurological status. The clinical goals for the shift include SBP <140 Over the shift, the patient did not make progress toward the following goals. Barriers to progression include . Recommendations to address these barriers include . [facility] 14:32:18 Pt transferred from NSICU to Stroke Unit. [facility]2025-01-10 10:10:00 Pt returned to unit from MRI. [facility]2025-01-10 08:55:00 Left pt in care of MRI nurse at 0850. [facility]2025-01-09 20:54:34 Problem: Neurological Deficit Goal: Neurological status is stable or improving Outcome: Progressing Goal: Maintain vital signs within ordered limits Outcome: Progressing Goal: Oxygenation goal greater than 94% Outcome: Progressing Problem: Activity Intolerance/Impaired Mobility Goal: Mobility/activity is maintained at optimum level for patient Outcome: Progressing Goal: Maintains or returns to baseline bowel function Outcome: Progressing Goal: Maintains or returns to baseline bladder function Outcome: Progressing Problem: Communication Impairment Goal: Ability to express needs and understand communication Outcome: Progressing Problem: Potential for Aspiration Goal: Non-ventilated patient's risk of aspiration is minimized Outcome: Progressing Goal: Ventilated patient's risk of aspiration is minimized Outcome: Progressing Problem: Infection Goal: Signs and symptoms of infections are decreased or avoided Outcome: Progressing Goal: Oral health is maintained or improved Outcome: Progressing Problem: Nutrition Goal: Nutritional status is improving Outcome: Progressing Problem: Thrombolytic Therapy Goal: Monitor for angioedema Outcome: Progressing Goal: Monitor for bleeding for 48 hours post tenectaplase/interventional procedures Outcome: Progressing Problem: Bleeding Precautions Goal: Excessive bleeding will be minimized Outcome: Progressing [facility]2025-01-09 16:43:10 Problem: Neurological Deficit Goal: Neurological status is stable or improving Outcome: Ongoing Goal: Maintain vital signs within ordered limits Outcome: Ongoing Goal: Oxygenation goal greater than 94% Outcome: Ongoing Problem: Activity Intolerance/Impaired Mobility Goal: Mobility/activity is maintained at optimum level for patient Outcome: Ongoing Goal: Maintains or returns to baseline bowel function Outcome: Ongoing Goal: Maintains or returns to baseline bladder function Outcome: Ongoing Problem: Communication Impairment Goal: Ability to express needs and understand communication Outcome: Ongoing Problem: Potential for Aspiration Goal: Non-ventilated patient's risk of aspiration is minimized Outcome: Ongoing Goal: Ventilated patient's risk of aspiration is minimized Outcome: Ongoing Problem: Infection Goal: Signs and symptoms of infections are decreased or avoided Outcome: Ongoing Goal: Oral health is maintained or improved Outcome: Ongoing Problem: Nutrition Goal: Nutritional status is improving Outcome: Ongoing [facility]IONIST [facility] [id number] 09:17:00 History of Present Illness: Chief Complaint: Patient presents with Stroke BIB lifelfight for poss CVA L arm leg weakness and dysarthria since 0815 when she woke up. Last seen well at 0830 last night. PMH HTN; no blood thinners or trauma. Denies new medication. Toney Martel ( , 1945 Patient History No past medical history on file. No past surgical history on file. No family history on file. Social History: Tobacco Use Smoking status: Not on file Smokeless tobacco: Not on file Substance Use Topics Alcohol use: Not on file Drug use: Not on file Review of Systems: Review of Systems Constitutional: Negative for chills and fever. HENT: Negative for ear pain and sore throat. Eyes: Negative for pain and visual disturbance. Respiratory: Negative for cough and shortness of breath. Cardiovascular: Negative for chest pain and palpitations. Gastrointestinal: Negative for abdominal pain and vomiting. Genitourinary: Negative for dysuria and hematuria. Musculoskeletal: Negative for arthralgias and back pain. Skin: Negative for color change and rash. Neurological: Positive for facial asymmetry and weakness. Negative for seizures and syncope. All other systems reviewed and are negative. Physical Exam: Vitals and nursing note reviewed. Constitutional: General: Sigma is not in acute distress. Appearance: Normal appearance. HENT: Mouth/Throat: Mouth: Mucous membranes are moist. Pharynx: Oropharynx is clear. Eyes: Conjunctiva/sclera: Conjunctivae normal. Pupils: Pupils are equal, round, and reactive to light. Cardiovascular: Rate and Rhythm: Normal rate and regular rhythm. Heart sounds: Normal heart sounds. Pulmonary: Effort: Pulmonary effort is normal. Breath sounds: Normal breath sounds. Abdominal: Palpations: Abdomen is soft. Tenderness: There is no abdominal tenderness. Musculoskeletal: General: Normal range of motion. Cervical back: Normal range of motion and neck supple. No tenderness. Skin: General: Skin is warm and dry. Capillary Refill: Capillary refill takes less than 2 seconds. Findings: No rash. Neurological: General: No focal deficit present. Mental Status: Sigma is alert and oriented to person, place, and time. Sensory: No sensory deficit. Motor: No weakness. Gait: Gait normal. Comments: NIH Stroke Scale: 15 Dysarthria Facial asymmetry on R LUE/LLE ms 3/ Psychiatric: Mood and Affect: Mood normal. Triage Vitals: BP: (!) 161/72, Heart Rate: 87, Temp: 36.7 ?C (98.1 ?F), Resp: 18, SpO2: 98 %, Weight: 78.2 kg (172 lb 6.4 oz) Last Recorded Vitals: BP: (!) 161/72, Heart Rate: 87, Temp: 36.7 ?C (98.1 ?F), Resp: 18, SpO2: 98 %, Weight: 78.2 kg (172 lb 6.4 oz) Procedures Performed: Procedures ED Course : Disposition: Medical Decision Making MEDICAL DECISION MAKING Complexity of Problems Addressed High: I am concerned about a severe complexity problem which was evidenced by the differential, and associated workup to rule out the severe problem: concern for CVA which is a new problem for this patient as evidenced by dysarthria facial droop, LUE/LLE weakness,. Complexity of Data Review Category 1: (# Of Data Points) Ordered the following tests: cbc bmp ct cta and (Alternate Historian) For improved patient care, I received an additional history from [employer] flight who states LKW 2030 last night and history. Category 3: (Special Procedures Tech) I consulted and spoke with stroke about the patient and they stated saw pt on arrival. Risk of Management (Admission) Patient to be admitted to the hospital. Called by radiology for internal carotid dissection, will get CTA Aorta to complete imaging No other dissection Stroke had long discussion w family and proceeding w IR ICU admission Rosanna Albrecht PA-C Amount and/or Complexity of Data Reviewed Labs: ordered. Radiology: ordered. ECG/medicine tests: ordered. Risk Prescription drug management. Scoring Tools NIH Stroke Scale: 15 DANI Laura 07/15/24 1200 Cosigned by Vickie Becerra MD at 07/18/2024 8:41 AM MEDICAL RECEPTIONIST CAL RECEPTIONIST CAL RECEPTIONIST Associated attestation - Vickie Becerra MD - 07/18/2024 8:41 AM MEDICAL RECEPTIONIST Attending Physician MOLLY Attestation (Shared Visit): The patient was seen and examined by me with the PA/BLENDING TECHNICIAN, and I agree with the History/Exam/Medical Decision Making documented by the MOLLY. Additionally, my history, physical exam, and/or MDM is: 78 yo F w PMH HTN presents as code CVA. On my exam she has R gaze pref, L facial palsy, significant dysarthria, LUE and LLE weakness w dec sensation. CTA w carotid dissection w distal clot. Plan for admit for thrombectomy, further management in neuro ICU. Impression: 1. Stroke, acute, thrombotic (HCC) Vickie Becerra MD CRITICAL CARE NOTE I examined the patient: Toney Martel, who at that time was critically ill and had a high probability of sudden significant deterioration in her condition as evident by CRITICALCAREPRESENTATION: acute neurological deficit and required my constant medical attention and the highest level of preparedness to intervene urgently. I provided 35 minutes of aggregated critical care services to this patient while she was in critical condition including: direct patient care, discussion with consultants, obtaining additional history from EMS, ordering of diagnostic studies, review of imaging studies, review of laboratory results, review of medications, allergies, and vital signs, review of nursing notes, and transfer of care and discharge planning. The reported time excludes time spent on separately reportable procedures. Vickie Becerra MD July 18, 2024 8:40 AM Physician Adelina Kim
[2024-09-06 10:49] VITALS: BMI 28.5
[2024-09-06] MEDS ORDERED: MELATONIN 3 MG TABLET PO PRN (14:16)
[2024-09-06] MEDS ORDERED: DOCUSATE NA/SENNA CONC 1 TAB PO PRN (14:16)
[2024-09-06 17:17] LABS: Specific Gravity 1.006 (1.005-1.030); Sqamous Epithelial <5 /HPF (None Seen); Urine Bacteria None Seen /HPF (<20); Urine Bilirubin NEGATIVE (Negative); Urine Blood Trace (Negative); Urine Clarity Clear (Clear); Urine Color Colorless (Yellow); Urine Culture Reflex Order NOT NEEDED; Urine Glucose NEGATIVE (Negative); Urine Ketones NEGATIVE (Negative); Urine Micro Reflex YN NO BILL MICROSCOPIC; Urine Nitrite NEGATIVE (Negative); Urine Protein NEGATIVE (Negative); Urine RBC <5 /HPF (None Seen); Urine Urobilinogen Normal (Normal); Urine WBC <5 /HPF (<5); Urine Yeast (Budding) Trace /HPF (None Seen)
--- NOTE | 2024-09-06 17:35 | RAD REPORT ---
EXAM: Chest Single View HISTORY: 78 years Female pain on peg tube area COMPARISON: None. FINDINGS: LUNGS/PLEURA: The lungs are clear. No pleural effusions or pneumothorax. No pulmonary edema. CARDIAC/MEDIASTINUM: The cardiac silhouette is within normal limits. UPPER ABDOMEN: No significant abnormality. BONES: No acute abnormality. LINES/TUBES/OTHER: N/A IMPRESSION: No evidence of acute cardiopulmonary disease.
--- NOTE | 2024-09-06 17:39 | RAD REPORT ---
EXAM: AP view(s) of the abdomen Abdomen 1 View (KUB) HISTORY: pain peg tube site COMPARISON: None FINDINGS: Nonobstructive bowel gas pattern.. Gastrostomy tube overlies the stomach. Mild formed stool burden. No suspicious calcifications are seen. No acute osseous abnormality. Other: n/a IMPRESSION: Nonobstructive bowel gas pattern.
[2024-09-06] MEDS: ACETAMINOPHEN 500 MG TAB PO PRN (19:38)
[2024-09-06] MEDS: GABAPENTIN 100 MG CAP PO SCH (19:39)
[2024-09-06] MEDS: APIXABAN 2.5 MG TABLET PO SCH (19:39)
[2024-09-06] MEDS: ATORVASTATIN 80 MG TAB PO SCH (19:39)
--- NOTE | 2024-09-07 00:14 | HP ---
Date of Admission: 09/06/2024 Time Of Service: 1:10 p.m. Chief Complaint: "I had a stroke. My left side is weak." History Of Present Illness: Ms. Martel is a 78-year-old patient with hypertension, who suffered a stroke involving the right hemisphere and had left hemiplegia of face, arm, and leg. She had dysph agia, dysarthria. She was hospitalized for about 20 days. During that time, she had a PEG tube plac ed and she did work hard with therapy, both physical, occupational, and speech therapy. She was disc harged and transferred to a home health service. However, while there, she was found to not be safe at home and it was determined that she would benefit from a more aggressive therapy such as inpatient therapy. She was, therefore, evaluated and then found to [facility] The PEG tube placement, she did improve her swallowing and that is now not being used. She is swallowing without issues, but still requires evaluation by Speech, to improve even mor e. 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 She now requires contact guard assista nce with ambulation, utilizing a cane, and she is dependent on family to clean after a bowel movement . Her primary mode of transportation is wheelchair bound during the day as she is unsafe for her to help with mobilization. She has had episodes of falling and will have to help her also who h ad some issues of balance as well. She is now admitted for physical, occupational, and speech therap y to inpatient rehabilitation unit. Past Medical History: As noted, hypertension. Allergies: NO KNOWN DRUG ALLERGIES. Current Medications: Carvedilol 25 mg twice daily. She is on trimethoprim/sulfamethoxazole twice da soumya and Tylenol with Codeine #3 every 4 hours as needed. Laboratory Data: Her laboratory studies, she has blood work pending. Family History: Noncontributory. Social History: No alcohol, tobacco, or IV drug use. Lives in a single family home with . Review of Systems: Some difficulty, she has some pain in the left lateral lower area where the PEG tube is placed and th e PEG tube has been about less than a month in place. Otherwise, some incoordination and balance pro blems. She does note that she requires help when trying to ambulate or she will lose balance and a g ait belt must be used. Physical Examination: Vital Signs: Blood pressure is 166/87, pulse 66, respiratory rate 17, temperature 97.8. O2 saturati on 96%. Weight 155 pounds, height 5 feet 2 inches, BMI of 28. General: Ms. Martel is sitting in a chair with speech pathologist at bedside. HEENT: She appears normocephalic and atraumatic. Sclerae anicteric. Oropharynx pink and moist. Neck: Supple. Chest: Clear. Heart: Regular. She does have slight decrease of her left nasolabial fold. She has fair excursions. Extremities: Left upper extremity is npxl-vj-cqyvkmheed weak, around 3+/5 to 4/5. Left lower extrem ity, proximally 3/5; distally, she has an AFO in place and has no significant dorsiflexion. Neuro: There is decreased light touch temperature in the left compared to right upper and lower extr emities. Coordination slow but intact, upper and lower extremities. Gait, again left circumduction gait with AFO on the left foot. Current Level Of Functioning: Currently, setup assistance for eating, setup for grooming, moderate a ssistance for bathing. Contact guard supervision for upper body dressing, lower body dressing along with supervision. Toileting, moderate assistance. Wheelchair transfer, toilet transfer, moderate as sistance. Gait, she ambulated 100 feet with supervision to contact guard assistance and wheelchair 2 0 feet with contact guard assistance. Rehab And Medical Assessment And Plan: Ms. Martel is a 78-year-old patient admitted to the rehab ilitation unit with impairment category 01 stroke. Impairment group code is 01.1, left body involvem ent, right brain. Her etiologic diagnosis, right cerebral infarction. Her comorbidities are decreas ed mobility, decreased physical functioning, hypertension. Plan: She will have physical, occupational, and speech therapy, 3-1/2 hours, 5 out of 7 days. She w ill continue with DVT prophylaxis with Eliquis 2.5 mg twice daily. She will continue with Tylenol fo r pain. Continue with management of her hypertension. Aspirin 81 mg daily. Will continue, if need be, with Senokot and melatonin for insomnia. Comorbidities That Are Impacting Rehabilitation: Currently, the hypertension is her big issue, numbe r one risk of stroke and she will have gentle control of the blood pressures. Also, she will be mobi lized well. She does have a PEG tube in place and if there is pain, she will have a pain patch put o n the left lateral area next to the PEG tube, to help mitigate the pain. Rehab Specific Plan: Ms. Martel will have physical, occupational, and speech therapy 3-1/2 hours , 5 out of 7 days, to improve ability to transfer from bed to chair to toilet to wheelchair, to mobil ize with a rolling walker and quad cane and if possible, no assistive device. Occupational therapy s tarted to help with her activities of daily living. Speech therapy to help with her swallowing, judg ment, thinking, and safety awareness. Ms. Martel has a good understanding of the process of admission to the inpatient rehabilitation u nit and how, she will benefit from physical, occupational, and speech therapy. She will have 24 hour s a day, 7 days a week, skilled rehabilitation nursing, daily physician evaluation and management, an d social security assessor evaluation and management for discharge planning, home equipment, and to follow up. If need be, additional help will be sought by the hospitalist service. Barriers To Discharge: She has a high risk of falling and loss of balance and fall precautions to be adhered to at all times when mobilizing and transferring. Also, aspiration precautions to be adhere d to, and she does have the PEG tube, which potentially could be infected. She will have KUB and koko st x-ray done to evaluate if there are any untoward issues with the PEG tube. Length Of Stay: About 12 days. Disposition: Expected to be home with continued therapy via Home Health. Prognosis: Good. Code Status: Full code. Rehab Specific Goals: 1. Become independent with upper body dressing, donning and doffing footwear. 2. Independently perform all activities of daily living. 3. Independently ambulate 250 feet with a rolling walker and mobilize in wheelchair 250 feet and go u p and down 10 steps with bilateral handrails. 4. Independently perform cognitive functioning. The above goals were reviewed with Ms. Martel, and she is in agreement. By signing this document, I acknowledge I personally performed a full physical examination on Ms. Mark marie, no later than 24 hours after her admission to the inpatient rehabilitation unit and determin ed that she is able to tolerate the above course of treatment at an intensive level for a reasonable period of time. A detailed individualized plan of care for her will be completed by hospital day #4 based on the preadmission screen, History and Physical, and therapy evaluations. YU Voice ID: [id number]
[2024-09-07 06:18] LABS: Absolute Eosinophils 0.2 K/uL (0-0.5); Absolute Lymphocytes (CBC) 1.4 K/uL (0.7-4.9); Absolute Monocytes 0.4 K/uL (0.1-1.3); Absolute Neutrophil 1.1 K/uL (1.8-8.0); Basophils % 0.3 % (0-1.3); Eosinophils % 5.2 % (0-4.4); Hematocrit 34.3 % (36.0-45.0); Hemoglobin 11.4 g/dL (12.0-15.0); MCH 26.8 pg (27.0-35.0); MCHC 33.1 g/dL (32.0-36.0); MCV 81.1 fL (80-100); MPV 7.2 fL (7.6-11.3); Monocytes % 14.3 % (3.3-12.3); Neutrophils % 35.2 % (41.7-73.7); Nucleated Red Blood Cells % 0.1 % (0-0); Platelets 312 thou/uL (152-406); RBC Red Blood Cell Count 4.23 M/uL (3.86-4.86); Red Cell Distribution Width 14.9 % (12.1-15.2)
[2024-09-07 06:35] LABS: ALT/SGPT < 14 U/L (13-56); AST/SGOT < 10 U/L (15-37); Albumin 2.7 g/dL (3.4-5.0); Albumin/Globulin Ratio 0.7 (1.1-1.8); Alkaline Phosphatase 85 U/L (45-117); Anion Gap 5.8 mEq/L (5.0-15.0); BUN Blood Urea Nitrogen 9 mg/dL (7-18); Bicarbonate 30 mEq/L (21-32); Bilirubin Total 0.5 mg/dL (0.2-1.0); Globulin 4.1 g/dL (2.3-3.5); Glomerular Filtration Rate 96 ml/min (=/>90); Glucose Level 102 mg/dL (74-106); HDL Cholesterol 35 mg/dL (40-60); LDL Cholesterol, Calculated 38 mg/dL (<130); LDL Cholesterol,Calc NonReport 38; Magnesium 2.1 mg/dL (1.6-2.4); Potassium 3.8 mEq/L (3.5-5.1); Protein, Total 6.8 g/dL (6.4-8.2); Sodium Level 142 mEq/L (136-145)
[2024-09-07] MEDS: ASPIRIN EC 81 MG TAB PO SCH (08:03)
[2024-09-07] MEDS: LIDOCAINE 4% PATCH TOP SCH (08:03)
[2024-09-07] MEDS: lisinopriL 5 MG TAB PO SCH (19:14)
--- NOTE | 2024-09-08 00:39 | PN ---
Date of Progress Note: 09/07/2024 Time Of Service: 1:15 p.m. Subjective: Ms. Martel is sitting in a chair beside bed. Still has some left upper and lower ex tremity weakness, numbness, and stroke. She is otherwise doing well. No new complaints. Objective: No fevers, chills, nausea, vomiting. No myalgias, arthralgias, rash. No other issues or complaints mentioned. Physical Examination: Vital Signs: Blood pressure 182/72, pulse 65, respiratory rate 16, temperature 98.1, oxygen saturati on 99%. General: Ms. Martel is sitting in a chair and in therapy in her room, getting ready for another therapy session. She has no new complaints. Some left-sided incoordination and weakness which is st ill present from her stroke. Laboratory Studies: White blood cell count 3.1, hemoglobin 11.4, platelets 312. Sodium 142, potassi um 3.8, chloride 111, carbon dioxide 30, BUN 9, creatinine 0.49. Liver function studies unremarkable . LDL cholesterol 38, HDL 35, cholesterol to HDL ratio 2.54. Urine shows trace blood, 75 esterase, trace budding yeasts. Copper level is pending. Progress Made With Physical And Occupational Therapy: With physical therapy today, she completed 250 feet with a quad cane in the right hand and up and down 15 steps with minimal assistance, mobilized a wheelchair 250 feet with contact guard assistance. Chy-np-saiai transfers done with contact guard to minimum assistance. With occupational therapy, did have some pain in the left shoulder, especiall y with flexion and extension of the shoulder, but still did therapy very well, demonstrated minimal a ssistance with toileting, toilet to shower transfers with grab bar, done with contact guard to minimu m assistance. With speech, she did working memory skills for 3 pieces of information, demonstrated w ith 50% accuracy. She identified letters and numbers of large font in scattered pattern to target le ft-sided neglect with 100% accuracy with moderate verbal cues. Assessment: Ms. Martel is a 78-year-old patient in the rehabilitation unit with ischemic stroke affecting her left side. She is making fair overall progress with physical, occupational, and speech therapy. She had decreased mobility, decreased physical functioning, dyslipidemia, stroke risk, hyp ertension, insomnia, and pain. Plan: She will continue with physical, occupational, and speech therapy 3.5 hours, 5 of 7 days. She will continue with comorbid condition medications which have been noted. Continue with DVT prophyla xis as well. LINDSAY/JESUS Voice ID: [id number] Report ID: [id number]
--- NOTE | 2024-09-08 23:56 | PN ---
Date of Progress Note: 09/08/2024 Time Of Service: 1:50 p.m. Subjective: Ms. Martel is sitting in a chair, looking out the window. Left leg is elevated. Sh pat does have AFO on the left leg, which is the site of weakness. Left arm also mild to moderately wea k. She has no new complaints. Objective: No fevers, chills, nausea, vomiting. Mild myalgias and arthralgias on the left side. Ot herwise, no new complaints. Physical Examination: Vital Signs: Blood pressure 150/70, pulse 66, respiratory rate 17, temperature 98.0, oxygen saturati on 95%. General: Ms. Martel is resting comfortably. Extremities: She still has moderate weakness in the left upper and lower extremities. AFO on the le ft foot. Otherwise, no new examination findings. Laboratory Studies: No new laboratory studies. X-ray/imaging: No new x-rays or imaging. Medications: Reviewed and are unchanged. Progress Made With Physical, Occupational, And Speech Therapy: Today, with physical therapy, she did ambulate 125 feet twice with a single prong cane with contact guard to minimum assistance. Mobilize d wheelchair 250 feet with contact guard to standby assistance. Imk-wl-qouls transfers, stand and pi vot transfers done with contact guard assistance. With occupational therapy, contact guard assistanc e for yxw-vb-mztty transfers, wheelchair to toilet transfers as well. With speech, she was 100% accu rate and needed only minimal cues for completing a task, which is a letter cancellation task. Diverg ent naming of 7 members of concrete categories was completed with 100% accuracy, in moderate verbal c ues. Four of four pictures recalled after 5 and 15-minute increments. Assessment: Ms. Martel is a 78-year-old patient with stroke affecting the left body, right brain . She is making excellent progress with her physical, occupational, and speech therapy. She still h as neuropathic pain, dyslipidemia, risk of deep vein thrombosis, hypertension, insomnia, constipation . Plan: She will continue with physical, occupational, and speech therapy 3.5 hours, 5 of 7 days. She will continue with her comorbid condition medications that have been listed, and plan is for her to go home and continue therapy via Home Health after discharge. LINDSAY/JESUS Voice ID: [id number] Report ID: [id number]
[2024-09-09] MEDS: TRAMADOL HCL 50 MG TAB PO PRN (03:08)
[2024-09-09 06:36] LABS: Absolute Eosinophils 0.1 K/uL (0-0.5); Absolute Lymphocytes (CBC) 1.4 K/uL (0.7-4.9); Absolute Monocytes 0.4 K/uL (0.1-1.3); Absolute Neutrophil 0.7 K/uL (1.8-8.0); Basophils % 1.9 % (0-1.3); Eosinophils % 5.3 % (0-4.4); Hemoglobin 10.9 g/dL (12.0-15.0); Lymphocytes % 51.4 % (15.3-44.8); MCH 27.1 pg (27.0-35.0); MCHC 33.1 g/dL (32.0-36.0); MCV 82.1 fL (80-100); MPV 7.3 fL (7.6-11.3); Monocytes % 16.6 % (3.3-12.3); Neutrophils % 24.8 % (41.7-73.7); Nucleated Red Blood Cells % 0.1 % (0-0); Platelets 298 thou/uL (152-406); RBC Red Blood Cell Count 4.02 M/uL (3.86-4.86); Red Cell Distribution Width 15.1 % (12.1-15.2)
[2024-09-09 07:08] LABS: Albumin 2.7 g/dL (3.4-5.0); Anion Gap 5.9 mEq/L (5.0-15.0); Magnesium 2.1 mg/dL (1.6-2.4); Potassium 3.9 mEq/L (3.5-5.1)
[2024-09-09] MEDS: ONDANSETRON 4 MG (ODT) TAB PO PRN (10:45)
[2024-09-09] MEDS ORDERED: MAGNES/ALUMIN/SIMET 30ML UCUP PO PRN (13:24)
--- NOTE | 2024-09-09 22:06 | PN ---
Date of Progress Note: 09/09/2024 Time Of Service: 1:15 p.m. Subjective: Ms. Martel is lying in her bed. Her AFO on the left is off. She is feeling somewha t better with therapy, less pain, and she of course has significant left arm weakness and left leg we akness after her stroke. Objective: No fevers, chills, nausea, vomiting, myalgias, arthralgias. Physical Examination: Vital Signs: Blood pressure 136/61, pulse 65, respiratory rate 16, temperature 98, oxygen saturation 95%. General: Ms. Martel is lying comfortably in bed. She is no acute significant distress. HEENT: She is normocephalic, atraumatic. Sclerae anicteric. Oropharynx is pink and moist. Extremities: She has left upper and lower extremity weakness around 3/5 proximally and distally. Laboratory Studies: White blood cell count 2.6, hemoglobin 10.9, platelets 298. Sodium 142, potassi um 3.9, chloride 110, carbon dioxide 30, BUN 8, creatinine 0.51, calcium 8.5, magnesium 2.1, albumin 2.7, prealbumin 11.0. Medications: Medications have been reviewed and remain unchanged. Progress Made With Physical, Occupational, And Speech Therapy: With physical therapy today, she ambu lated 125 feet twice a single prong cane and 250 feet was mobilized in a wheelchair. Pjd-ze-sgsqw tr ansfers, stand and pivot transfers with contact guard assistance. With occupational therapy, contact guard assistance with jgw-ta-audpl transfers. Min assist for toilet hygiene. Improved left upper e xtremity motor control and left lower extremity as well during transfers. With speech, she was able to use her visual scanning ability to look at pictures and answer questions about the pictures with 6 5% accuracy. Organizational thinking skills were used for convergent naming with 90% accuracy. Spee ch intelligibility at 88% at conversational level. Assessment: Ms. Martel is a 78-year-old patient in rehabilitation unit with stroke affecting the right brain and left body. She has decreased mobility, decreased physical functioning, stroke, and DVT risk. She has dyslipidemia, neuropathic pain, hypertension, insomnia, and constipation. Plan: She will continue with physical, occupational, and speech therapy 3.5 hours a day, 5 of 7 days . Continue with comorbid condition and medications, which are noted. She does have the left foot AF O when she is ambulating, and she should use the rolling walker at all times as she is ambulating. LINDSAY/JESUS Voice ID: [id number] Report ID: [id number]
--- NOTE | 2024-09-10 13:28 | P.RH.PN ---
Estimated Length of Stay: 13 Expected Discharge Date: 09/21/24 Discharge Disposition Plan: Home Family Support: Yes Assisted Goal: Mobility, Transfers, Self Care Vital Signs: Last Vital Signs Temp 98 F 09/10/24 06:44 Pulse 53 09/10/24 08:05 Resp 16 09/10/24 06:44 BP 147/67 H 09/10/24 08:05 Pulse Ox 96 09/10/24 06:44 Laboratory: Laboratory Last Values WBC 2.60 thou/uL (4.3-10.9) L 09/09/24 05:47 RBC 4.02 M/uL (3.86-4.86) 09/09/24 05:47 Hgb 10.9 g/dL (12.0-15.0) L 09/09/24 05:47 Hct 33.0 % (36.0-45.0) L 09/09/24 05:47 MCV 82.1 fL (80-100) 09/09/24 05:47 MCH 27.1 pg (27.0-35.0) 09/09/24 05:47 MCHC 33.1 g/dL (32.0-36.0) 09/09/24 05:47 RDW 15.1 % (12.1-15.2) 09/09/24 05:47 Plt Count 298 thou/uL (152-406) 09/09/24 05:47 MPV 7.3 fL (7.6-11.3) L 09/09/24 05:47 Neutrophils % 24.8 % (41.7-73.7) L 09/09/24 05:47 Lymphocytes % 51.4 % (15.3-44.8) H 09/09/24 05:47 Monocytes % 16.6 % (3.3-12.3) H 09/09/24 05:47 Eosinophils % 5.3 % (0-4.4) H 09/09/24 05:47 Basophils % 1.9 % (0-1.3) H 09/09/24 05:47 Absolute Neutrophils 0.7 K/uL (1.8-8.0) L 09/09/24 05:47 Absolute Lymphocytes 1.4 K/uL (0.7-4.9) 09/09/24 05:47 Absolute Monocytes 0.4 K/uL (0.1-1.3) 09/09/24 05:47 Absolute Eosinophils 0.1 K/uL (0-0.5) 09/09/24 05:47 Absolute Basophils 0.0 K/uL (0-0.5) 09/09/24 05:47 Sodium 142 mEq/L (136-145) 09/09/24 05:47 Potassium 3.9 mEq/L (3.5-5.1) 09/09/24 05:47 Chloride 110 mEq/L (98-107) H 09/09/24 05:47 Carbon Dioxide 30 mEq/L (21-32) 09/09/24 05:47 Anion Gap 5.9 mEq/L (5.0-15.0) 09/09/24 05:47 BUN 8 mg/dL (7-18) 09/09/24 05:47 Creatinine 0.51 mg/dL (0.55-1.02) L 09/09/24 05:47 Est GFR (CKD-EPI) 95 ml/min (=/>90) 09/09/24 05:47 Glucose 97 mg/dL (74-106) 09/09/24 05:47 Calcium 8.5 mg/dL (8.5-10.1) 09/09/24 05:47 Magnesium 2.1 mg/dL (1.6-2.4) 09/09/24 05:47 Total Bilirubin 0.5 mg/dL (0.2-1.0) 09/07/24 06:04 AST < 10 U/L (15-37) L 09/07/24 06:04 ALT < 14 U/L (13-56) 09/07/24 06:04 Alkaline Phosphatase 85 U/L (45-117) 09/07/24 06:04 Serum Total Protein 6.8 g/dL (6.4-8.2) 09/07/24 06:04 Albumin 2.7 g/dL (3.4-5.0) L 09/09/24 05:47 Globulin 4.1 g/dL (2.3-3.5) H 09/07/24 06:04 Albumin/Globulin Ratio 0.7 (1.1-1.8) L 09/07/24 06:04 Prealbumin 11.0 mg/dL (20-40) L 09/09/24 05:47 Triglycerides 82 mg/dL (<150) 09/07/24 06:04 Cholesterol 89 mg/dL (<200) 09/07/24 06:04 LDL Cholesterol, Calc 38 mg/dL (<130) 09/07/24 06:04 HDL Cholesterol 35 mg/dL (40-60) L 09/07/24 06:04 Cholesterol/HDL Ratio 2.54 09/07/24 06:04 Urine Color Colorless (Yellow) 09/06/24 16:45 Urine Clarity Clear (Clear) 09/06/24 16:45 Urine pH 6.0 (5.0-7.0) 09/06/24 16:45 Ur Specific Byron 1.006 (1.005-1.030) 09/06/24 16:45 Glucose (UA)(Auto) Negative (Negative) 09/06/24 16:45 Urine Ketones Negative (Negative) 09/06/24 16:45 Urine Blood Trace (Negative) H 09/06/24 16:45 Urine Nitrite Negative (Negative) 09/06/24 16:45 Urine Bilirubin Negative (Negative) 09/06/24 16:45 Urine Urobilinogen Normal (Normal) 09/06/24 16:45 Ur Leukocyte Esterase 75 Mari/uL (Negative) H 09/06/24 16:45 Urine RBC <5 /HPF (None Seen) 09/06/24 16:45 Urine WBC <5 /HPF (<5) 09/06/24 16:45 Ur Squamous Epith Cells <5 /HPF (None Seen) 09/06/24 16:45 U Non-Squamous Epi Cells <5 /HPF (None Seen) 09/06/24 16:45 Urine Bacteria None seen /HPF (<20) 09/06/24 16:45 Urine Yeast (Budding) Trace /HPF (None Seen) H 09/06/24 16:45 Urine Culture Reflexed Not needed 09/06/24 16:45 Urine Total Protein Negative (Negative) 09/06/24 16:45 Plasma Copper 146 mcg/dL (70-175) 09/07/24 06:04 Weight: 155 lb 12.8 oz Wound Present: No Closed Surgical Incision Present: Yes Negative Pressure Wound Therapy Present: No Physician Update: Labs reviewed and are stable. Her PEG tube site is better with less redness and pain. Still mild discharge. To be seen by Dr. Talbert. BIMS 14, MOCA 19, MCI, mild dysarthria and left side neglect. CTA 125' with narrow based quad cane but she is unsteady. WC 250' x 2 with CGA. She has mild nausea yesterday. SBA transfers, min assist lower body dressing, foot wear and shower. Summary: Patient's care plan and intermediate accountant goals have been reviewed and revised as necessary. Please see the Rehabilitation Signature page for all necessary signatures.
[2024-09-10] MEDS: ENSURE ENLIVE 237 ML CAN PO SCH (20:00)
[2024-09-10] MEDS: AMOXICILLIN TRIHYDR 250 MG CAP PO SCH (20:19)
[2024-09-11] MEDS: CRANBERRY FRUIT EXTRACT 425 MG CAPSULE PO SCH (08:07)
[2024-09-12] MEDS: cloNIDine HCL 0.1 MG TAB PO PRN (19:24)
--- NOTE | 2024-09-13 15:50 | RAD REPORT ---
EXAM: CT brain without contrast HISTORY: CVA COMPARISON: None TECHNIQUE: Multiple contiguous axial images were obtained and a CT of the brain without contrast.. Sagittal and coronal reconstruction performed. Automated exposure control, adjustment of the mA and/or kV according to patient size, and/or iterative reconstruction. Unless otherwise specified, incidental f indings do not require dedicated imaging follow-up FINDINGS: 4.3 cm subacute right occipital lobe infarct. Mild hemorrhagic conversion present. 5.5 cm old right temporal parietal infarct. Small old right thalamic infarct. Ventricles are normal caliber. No shift of midline structures No extra-axial fluid collection noted No significant hypodensity within the brain No fluid within the visualized sinuses or mastoids noted. IMPRESSION: Subacute right occipital lobe infarction with small amount of hemorrhagic conversion.. The exam was d iscussed with Dr. Salazar
[2024-09-13 22:58] LABS: VITAMIN B1-THIAMINE (WB) 92 nmol/L (78-185)
--- NOTE | 2024-09-14 00:13 | PN ---
Date of Progress Note: 09/13/2024 Time Of Service: 1:15 p.m. Subjective: Ms. Martel is sitting in a chair beside bed. Her is also sitting in the traci m. She reports no significant worsening, but no significant improvement in the limb with left upper and lower extremity weakness from her hemorrhagic stroke which affects her right brain. She did have an interval CT scan done today, although there was no direct comparison available at that time. The study identified a subacute right occipital lobe infarct with small amount of hemorrhagic conversion and measured the subacute stroke, measured 4.3 in the right occipital lobe, and the mild hemorrhagic conversion was present. There was a 5.5 cm old right temporoparietal infarct and small old right th alamic infarct. Physical Examination: Vital Signs: Blood pressure 138/69, pulse 69, respiratory rate 16, temperature 98, oxygen saturation 97%. General: Ms. Martel is again sitting in a chair beside bed. HEENT: She appears normocephalic, atraumatic. Sclerae anicteric. Oropharynx pink and moist. Neurologic: She does have some improving dexterity, coordination, and strength in the left upper ext remity, and able to open and close and left leg able to lift and extend the leg and still has need fo r AFO on the left. Laboratory Studies: No new laboratory studies. X-ray/imaging: As noted above. Medications: Medications have been reviewed and are unchanged. Progress Made With Physical, Occupational, And Speech Therapy: With physical therapy, she ambulated 250 feet, 150 feet with contact guard assistance and with a small quad cane. She was able to go up a nd down 15 steps with contact guard assistance and mobilized a wheelchair 325 feet with modified inde pendence. With occupational therapy, standby assistance for toilet hygiene, improved dressing and do ing very well, lower body dressing as well. With speech, she was able to use visual scanning to cons istently go from left to right, with 100% accuracy and minimum verbal cues. She used organizational thinking for a divergent naming task for 7 concrete category members with 100% accuracy and 3 abstrac t categories with 100% accuracy as well. Assessment: Ms. Martel is a 78-year-old patient in the rehabilitation unit with multiple strokes , acute to subacute, and some hemorrhagic conversion in the right brain and she has some left-sided n umbness, weakness, from which she is improving. In addition, she has dyslipidemia, neuropathic pain, hypertension, insomnia, constipation, malnutrition. Plan: She will continue with physical, occupational, and speech therapy as noted. Continue all [place] rbid condition medications as noted and DVT prophylaxis is present. She is on Eliquis 2.5 mg twice d aily and not given a full dose of Eliquis. LINDSAY/JESUS Voice ID: [id number] Report ID: [id number]
--- NOTE | 2024-09-14 23:34 | PN ---
Date of Progress Note: 09/14/2024 Time Of Service: 1:10 p.m. Subjective: Ms. Martel is doing much better today in the chair, sitting in a chair beside the be d. Still has significant left-sided incoordination and weakness in upper and lower extremities, but is much better in terms of closing the fist and making good pincer moves with the thumb and fingers. Objective: She denies any fevers, chills, nausea, vomiting, myalgias, arthralgias, rash. Physical Examination: Vital Signs: Blood pressure 148/64, pulse 68, respiratory rate 16, temperature 98.3, oxygen saturati on 98%. General: Again, Ms. Martel is sitting comfortably. Neuro: Left nasolabial fold decrease still present. Left arm and leg strength is improving slowly a nd incoordination also present. Laboratory Studies: No new laboratory studies. X-ray/imaging: No new x-rays or imaging. Medications: Have been reviewed and remain unchanged. Progress Made With Physical, Occupational, And Speech Therapy: With physical therapy today, she did ambulate 300 feet and 120 feet with a narrow based cane with contact guard assistance and standby ass istance. She was able to go up and down 20 steps with contact guard assistance. Wheelchair mobiliza tion 325 feet with supervision. With occupational therapy, standby assistance for toileting and quintanilla sfers. She did use assistive device for lower body dressing. New dressing technique used. With spe ech, she did recall 5 of 5 unrelated pictures after 5 minutes with 100% accuracy. Assessment: Ms. Martel is a 78-year-old patient in rehabilitation unit with hemorrhagic stroke a ffecting the right brain, left body. She does have decreased mobility, decreased physical functionin g, dyslipidemia, neuropathic pain, insomnia, hypertension, constipation, malnutrition, that is a drop from stroke. Plan: She will continue with physical, occupational, and speech therapy 3.5 hours, 5 of 7 days. She continues with treatment for her comorbid conditions including Eliquis for DVT prophylaxis. She als o has gabapentin for neuropathic pain, clonidine if blood pressure greater than 170, 0.1 mg every 4 h ours, Lipitor 80 mg at night for dyslipidemia, aspirin 81 mg daily for stroke risk reduction. She keen s continued amoxicillin for UTI and again Eliquis for DVT prophylaxis, tramadol for pain. LB/MODPadmini Voice ID: [id number] Report ID: [id number]
--- NOTE | 2024-09-16 00:25 | PN ---
Date of Progress Note: 09/15/2024 Subjective: Ms. Martel is resting comfortably. No significant issues or distress. The left upp er and lower extremity strength and dexterity returning slowly. She is excited about continuing to i mprove, on how she is doing. Objective: She denies any fevers, chills, nausea, vomiting, myalgias, arthralgias. Physical Examination: Vital Signs: Blood pressure 153/75, pulse 65, respiratory rate 16, temperature 98.6, oxygen saturati on 99%. General: Ms. Martel again is resting comfortably. She is in no acute distress. Neuromuscular: She does have mild weakness in the left upper extremity, some incoordination. More w eakness, mild to moderate in the lower extremity on the left. Otherwise, no new findings. Laboratory Studies: No new laboratory studies x-ray. X-ray/imaging: No new x-rays or imaging. She did have CT scan on the . The prior CT scan is st ill pending for a comparison. Medications: Have been reviewed and are unchanged. Progress Made With Physical And Occupational Therapy: Today, with physical therapy, she did stair ma nagement 15 stairs with contact guard assistance. Mobilized wheelchair 100 feet twice with supervisi on to modified independence. With occupational therapy, supervision for sit to stand, toilet transfe rs. She did have toilet hygiene. Able to manage to pull up the pants up and down after a bowel move ment. Still needs some help with her perineal hygiene. With occupational therapy, she did read func tional material and answered questions about the contents. She was 90% accurate with minimum assista nce. Assessment And Plan: Ms. Martel is a 78-year-old patient in the rehabilitation unit with a strok e affecting the left body, right brain. She is making fair overall progress in terms of improvement. She still has decreased mobility, decreased physical functioning, hypertension, neuropathic pain, d yslipidemia, risk of deep vein thrombus and stroke along with pain, constipation, insomnia. She will continue with physical, occupational, and speech therapy 3.5 hours, 5 of 7 days. Continue with sal[place] rbid condition medications that have been noted and will continue with therapy following discharge. LINDSAY/JESUS Voice ID: [id number] Report ID: [id number]
[2024-09-16 06:00] LABS: Absolute Eosinophils 0.1 K/uL (0-0.5); Absolute Lymphocytes (CBC) 1.4 K/uL (0.7-4.9); Absolute Monocytes 0.6 K/uL (0.1-1.3); Absolute Neutrophil 1.1 K/uL (1.8-8.0); Basophils % 1.4 % (0-1.3); Hematocrit 34.4 % (36.0-45.0); Hemoglobin 11.3 g/dL (12.0-15.0); Lymphocytes % 42.7 % (15.3-44.8); MCH 26.7 pg (27.0-35.0); MCHC 32.8 g/dL (32.0-36.0); MCV 81.4 fL (80-100); MPV 7.7 fL (7.6-11.3); Monocytes % 18.7 % (3.3-12.3); Neutrophils % 34.2 % (41.7-73.7); Nucleated Red Blood Cells % 0.2 % (0-0); Platelets 266 thou/uL (152-406); RBC Red Blood Cell Count 4.23 M/uL (3.86-4.86); Red Cell Distribution Width 15.4 % (12.1-15.2)
[2024-09-16 06:25] LABS: Albumin 2.9 g/dL (3.4-5.0); Anion Gap 8.5 mEq/L (5.0-15.0); Potassium 3.5 mEq/L (3.5-5.1); Prealbumin 9.5 mg/dL (20-40)
--- NOTE | 2024-09-16 07:56 | P.CNS ---
Date of Consult: 09/16/24 Reason for Consult: painful toenails Allergies No Known Allergies Allergy (Unverified 11/11/16 08:21) Home Medications: Aspirin [Aspirin EC 81 MG] 81 mg PO DAILY 09/06/24 Atorvastatin Calcium [Lipitor] 80 mg PO BEDTIME 09/06/24 Gabapentin [Neurontin] 100 mg PO BID 09/06/24 - Past Medical/Surgical History Diabetic: No -: HTN - Social History Alcohol use: No CD- Drugs: No Caffeine use: No Place of Residence: Home Review of Systems 10-point ROS is otherwise unremarkable Physical Examination Temp Pulse Resp BP Pulse Ox 98.0 F 65 16 138/61 95 09/16/24 07:52 09/16/24 07:52 09/16/24 07:52 09/16/24 07:52 09/16/24 07:52 General: Alert, In no apparent distress, Oriented x3 Cardiovascular: No edema, Normal pulses (2/4 dp and pt pulses bilateral) Capillary refill: <2 Seconds Musculoskeletal: No clubbing, No swelling, No contractures, No erythema, No tenderness, No warmth Integumentary: Other (Thickened hypertrophic bilateral hallux and fifth digit nails. Dystrophic nails 2-4 bilateral) Neurological: Sensation intact Laboratory Data (last 24 hrs) 09/16/24 09/16/24 05:32 05:32 WBC 3.30 L Hgb 11.3 L Hct 34.4 L Plt Count 266 Sodium 140 Potassium 3.5 BUN 9 Creatinine 0.52 L Glucose 104 Magnesium 2.0 - Problems (1) Tinea unguium Current Visit: Yes Status: Acute (2) Onychogryphosis Current Visit: Yes Status: Acute (3) watermaster (current) use of anticoagulants Current Visit: Yes Status: Acute Conclusions/Impression: Debridment of nails at bedside
--- NOTE | 2024-09-16 23:11 | PN ---
Date of Progress Note: 09/16/2024 Time Of Service: 1:50 p.m. Subjective: Ms. Martel is doing very well. She is actually mobilizing around the unit, pushing her in the wheelchair with the therapist having a gait belt on her as she does the activity. She is doing very well. She is very happy with her progress so far. Objective: No fevers, chills, nausea, vomiting, myalgias, arthralgias. No rash. No significant com plaints. Physical Examination: Vital Signs: Blood pressure 138/78, pulse 76, respiratory rate 16, temperature 98, oxygen saturation 92%. General: Ms. Martel is doing very well. Neuromuscular: She has a left AFO, and improving with surgery in left upper extremity. She is getti ng stronger, better balance and coordination. Laboratory Studies: White blood cell count 3.3, hemoglobin 11.3, platelets 266. Sodium 140, potassi um 3.5, chloride 107, carbon dioxide 28, BUN 9, creatinine 0.52, glucose 104. Calcium 8.6, magnesium 2.0. Albumin 2.9. Prealbumin is 9.5. X-ray/imaging: No new x-rays or imaging. Today, she was seen by Dr. Gomes on the podiatry service and he did debridement of the toenails at [facility] bedside. Progress Made With Physical, Occupational, And Speech Therapy: Today, with physical therapy, she did bed mobilization working with left lower extremity and she did so without assistance. Gait training : Covered 250 feet without a rolling walker, but did push a wheelchair and was able to walk 150 feet with contact guard assistance, up and down 15 steps with standby assistance, and mobilized a wheelch air 250 feet with modified independence. With her occupational therapy, minimum assistance for toile t hygiene at the beginning and end of the session. Contact guard assistance for bathing to guard her while standing, so she does not lose balance. With speech, the BIMS score, she improved from 14 to 15, which is a normal score and the MoCA test she improved from 19 to 21, consistent with mild cognit jaden impairment. She does have visual field deficit and scanning difficulties. Assessment: Ms. Martel is a -ntdf-thp patient in rehabilitation unit with a stroke aff ecting right brain, left body. She is making great progress with physical and occupational therapy i s ready for discharge. She still has mild decreased mobility, decreased physical functioning, risk o f deep vein thrombus, risk of stroke, dyslipidemia, diabetic neuropathy, hypertension, insomnia, cons tipation. Plan: She will have physical, occupational, and speech therapy until her discharge. She will contin ue with comorbid condition medications after discharge. Continue with physical therapy, occupational therapy, and speech on home health basis. LINDSAY/JESUS Voice ID: [id number] Report ID: [id number]
[2024-09-17 07:45] VITALS: BP 136/65; TEMP 99
--- NOTE | 2024-09-17 16:39 | P.RH.PN ---
Estimated Length of Stay: 13 Expected Discharge Date: 09/17/24 Discharge Disposition Plan: Home Family Support: Yes [facility] Goal: Mobility, Transfers, Self Care Vital Signs: Last Vital Signs Temp 99.0 F 09/17/24 07:44 Pulse 73 09/17/24 08:40 Resp 17 09/17/24 07:44 BP 136/65 09/17/24 08:40 Pulse Ox 98 09/17/24 07:44 Laboratory: Laboratory Last Values WBC 3.30 thou/uL (4.3-10.9) L 09/16/24 05:32 RBC 4.23 M/uL (3.86-4.86) 09/16/24 05:32 Hgb 11.3 g/dL (12.0-15.0) L 09/16/24 05:32 Hct 34.4 % (36.0-45.0) L 09/16/24 05:32 MCV 81.4 fL (80-100) 09/16/24 05:32 MCH 26.7 pg (27.0-35.0) L 09/16/24 05:32 MCHC 32.8 g/dL (32.0-36.0) 09/16/24 05:32 RDW 15.4 % (12.1-15.2) H 09/16/24 05:32 Plt Count 266 thou/uL (152-406) 09/16/24 05:32 MPV 7.7 fL (7.6-11.3) 09/16/24 05:32 Neutrophils % 34.2 % (41.7-73.7) L 09/16/24 05:32 Lymphocytes % 42.7 % (15.3-44.8) 09/16/24 05:32 Monocytes % 18.7 % (3.3-12.3) H 09/16/24 05:32 Eosinophils % 3.0 % (0-4.4) 09/16/24 05:32 Basophils % 1.4 % (0-1.3) H 09/16/24 05:32 Absolute Neutrophils 1.1 K/uL (1.8-8.0) L 09/16/24 05:32 Absolute Lymphocytes 1.4 K/uL (0.7-4.9) 09/16/24 05:32 Absolute Monocytes 0.6 K/uL (0.1-1.3) 09/16/24 05:32 Absolute Eosinophils 0.1 K/uL (0-0.5) 09/16/24 05:32 Absolute Basophils 0.0 K/uL (0-0.5) 09/16/24 05:32 Sodium 140 mEq/L (136-145) 09/16/24 05:32 Potassium 3.5 mEq/L (3.5-5.1) 09/16/24 05:32 Chloride 107 mEq/L (98-107) 09/16/24 05:32 Carbon Dioxide 28 mEq/L (21-32) 09/16/24 05:32 Anion Gap 8.5 mEq/L (5.0-15.0) 09/16/24 05:32 BUN 9 mg/dL (7-18) 09/16/24 05:32 Creatinine 0.52 mg/dL (0.55-1.02) L 09/16/24 05:32 Est GFR (CKD-EPI) 94 ml/min (=/>90) 09/16/24 05:32 Glucose 104 mg/dL (74-106) 09/16/24 05:32 Calcium 8.6 mg/dL (8.5-10.1) 09/16/24 05:32 Magnesium 2.0 mg/dL (1.6-2.4) 09/16/24 05:32 Total Bilirubin 0.5 mg/dL (0.2-1.0) 09/07/24 06:04 AST < 10 U/L (15-37) L 09/07/24 06:04 ALT < 14 U/L (13-56) 09/07/24 06:04 Alkaline Phosphatase 85 U/L (45-117) 09/07/24 06:04 Serum Total Protein 6.8 g/dL (6.4-8.2) 09/07/24 06:04 Albumin 2.9 g/dL (3.4-5.0) L 09/16/24 05:32 Globulin 4.1 g/dL (2.3-3.5) H 09/07/24 06:04 Albumin/Globulin Ratio 0.7 (1.1-1.8) L 09/07/24 06:04 Prealbumin 9.5 mg/dL (20-40) L 09/16/24 05:32 Triglycerides 82 mg/dL (<150) 09/07/24 06:04 Cholesterol 89 mg/dL (<200) 09/07/24 06:04 LDL Cholesterol, Calc 38 mg/dL (<130) 09/07/24 06:04 HDL Cholesterol 35 mg/dL (40-60) L 09/07/24 06:04 Cholesterol/HDL Ratio 2.54 09/07/24 06:04 Whole Bld Vitamin B1 92 nmol/L (78-185) 09/07/24 06:04 Urine Color Colorless (Yellow) 09/06/24 16:45 Urine Clarity Clear (Clear) 09/06/24 16:45 Urine pH 6.0 (5.0-7.0) 09/06/24 16:45 Ur Specific Sneads 1.006 (1.005-1.030) 09/06/24 16:45 Glucose (UA)(Auto) Negative (Negative) 09/06/24 16:45 Urine Ketones Negative (Negative) 09/06/24 16:45 Urine Blood Trace (Negative) H 09/06/24 16:45 Urine Nitrite Negative (Negative) 09/06/24 16:45 Urine Bilirubin Negative (Negative) 09/06/24 16:45 Urine Urobilinogen Normal (Normal) 09/06/24 16:45 Ur Leukocyte Esterase 75 Mari/uL (Negative) H 09/06/24 16:45 Urine RBC <5 /HPF (None Seen) 09/06/24 16:45 Urine WBC <5 /HPF (<5) 09/06/24 16:45 Ur Squamous Epith Cells <5 /HPF (None Seen) 09/06/24 16:45 U Non-Squamous Epi Cells <5 /HPF (None Seen) 09/06/24 16:45 Urine Bacteria None seen /HPF (<20) 09/06/24 16:45 Urine Yeast (Budding) Trace /HPF (None Seen) H 09/06/24 16:45 Urine Culture Reflexed Not needed 09/06/24 16:45 Urine Total Protein Negative (Negative) 09/06/24 16:45 Plasma Copper 146 mcg/dL (70-175) 09/07/24 06:04 Weight: 155 lb 12.8 oz Wound Present: No Closed Surgical Incision Present: Yes Negative Pressure Wound Therapy Present: No Physician Update: Labs were reviewed and are stable. BIMS 15, MOCA 21. Improved memory. She met all PT goals. SBA for for balance. Minimum assistance for visual tracking to the left covering over 500 feet with contact-guard assistance using a rolling walker. She requires minimum assistance for lower body dressing, upper body dressing and toileting. She is discharged today to continue therapy via home health. Summary: Patient's care plan and joint terminal attack controller goals have been reviewed and revised as necessary. Please see the Rehabilitation Signature page for all necessary signatures.
== END 2024-09-17 17:20 | disposition home health service (06) | DRG 57 ==
LOC: 5TH 09:25
PROVIDERS: ADMIT Psychiatry & Neurology Neurology with Special Qualifications in Child Neurology; ATTEND Psychiatry & Neurology Neurology with Special Qualifications in Child Neurology
PROC: 0HBRXZZ Excision of Toe Nail, External Approach (ICD-10-PCS; principal; 2024-09-16)
PROC: 0HBRXZZ Excision of Toe Nail, External Approach (ICD-10-PCS; 2024-09-16)
PROC: 0HBRXZZ Excision of Toe Nail, External Approach (ICD-10-PCS; 2024-09-16)
PROC: 0HBRXZZ Excision of Toe Nail, External Approach (ICD-10-PCS; 2024-09-16)
PROC: 0HBRXZZ Excision of Toe Nail, External Approach (ICD-10-PCS; 2024-09-16)
PROC: 0HBRXZZ Excision of Toe Nail, External Approach (ICD-10-PCS; 2024-09-16)
PROC: 0HBRXZZ Excision of Toe Nail, External Approach (ICD-10-PCS; 2024-09-16)
PROC: 0HBRXZZ Excision of Toe Nail, External Approach (ICD-10-PCS; 2024-09-16)
DX: I69.354 Hemiplegia and hemiparesis following cerebral infarction affecting left non-dominant side (principal); E46 Unspecified protein-calorie malnutrition; I69.391 Dysphagia following cerebral infarction; I69.322 Dysarthria following cerebral infarction; I10 Essential (primary) hypertension; E78.5 Hyperlipidemia, unspecified; G47.00 Insomnia, unspecified; K59.00 Constipation, unspecified; L60.3 Nail dystrophy; B35.1 Tinea unguium; L60.2 Onychogryphosis; E11.40 Type 2 diabetes mellitus with diabetic neuropathy, unspecified; Z68.25 Body mass index [BMI] 25.0-25.9, adult; Z79.01 Long term (current) use of anticoagulants
CPT/HCPCS: 36415; 70450; 71045; 74018; 80048; 80053; 80061; 81001; 82040; 82525; 83735; 84134; 84425; 85025; 87077; 87086; 87088; 87186; 92523; 97110; 97112; 97116; 97124; 97129; 97163; 97165; 97530; 97542; J2003; Q0162